=== PATIENT | female | born 1970 | race Caucasian/White ===

== ENCOUNTER 2024-03-28 09:35 | Outpatient (CLI) | payer MEDICARE, MEDICAID, SELFPAY ==
--- NOTE | ~2024-03-28 | XR_ITS ---
Lumbosacral Spine: AP and lateral views Clinical History: Spinal stenosis Findings: The normal lordotic curve is maintained. There is anterior fusion from L4 to L5, and L5-S1, with interbody disc fusion devices at the L4-L5 and L5-S1 disc levels. There is right-sided posterio r fusion from L4 to L5, right-sided posterior jenna and transpedicular screws present. Remaining disc s paces are relatively well-preserved. There is extensive moderate to severe facet arthropathy througho ut the lumbar spine. The sacroiliac joints are normally outlined. Neurostimulator device present. Impression: Postoperative changes at L4-L5 and L5-S1, as detailed above. Moderate degenerative spondylosis, as above. Neurostimulator device. Reviewed, dictated and finalized at location . Impression: Postoperative changes at L4-L5 and L5-S1, as detailed above. Moderate degenerative spondylosis, as above. Neurostimulator device.
== END 2024-03-28 09:36 | disposition home or self-care (01) ==
PROVIDERS: PCP Nurse Practitioner Family; Visit Provider Neurological Surgery
DX: M48.062 Spinal stenosis, lumbar region with neurogenic claudication (principal); M47.896 Other spondylosis, lumbar region
CPT/HCPCS: 72110

== ENCOUNTER 2024-05-27 12:58 | Outpatient (CLI) | payer MEDICARE, MEDICAID, SELFPAY ==
--- NOTE | 2024-05-27 13:10 | ECG_ITS ---
Test Date: 2024-05-27 13:46:16 Measurements Intervals [place] Rate: 99 P: 54 MS: 185 QRS: 31 QRSD: 104 T: 23 QT: 367 QTc: 472 Interpretive Statements SINUS RHYTHM CONSIDER INFERIOR INFARCT, AGE INDETERMINATE BORDERLINE ST-T WAVE ABNORMALITY- ANTERIOR LEADS ABNORMAL ECG No previous ECG available for comparison Electronically Signed On 05-27-2024 14:00:21 CDT by Jeronimo Montaño D.O.
[2024-05-27 14:17] LABS: Add Urine Microscopic? NO; Appearance Urine Clear (Clear); Bilirubin Urine Negative (Negative); Blood Urine Negative (Negative); Color Urine Yellow (Yellow); Glucose Urine UA Negative (Negative); Ketones Urine Negative (Negative); Leukocyte Esterase Ur Negative LEU/UL (Negative); Nitrate Urine Negative (Negative); Protein Urine Negative (Negative); Specific Grav Ur 1.008 (1.001-1.035); Urobilinogen Urine 0.2 mg/dL (<2.0); pH Urine 5.5 (5.0-9.0)
[2024-05-27 14:19] LABS: Hematocrit 38.5 % (37.0-47.0); Hemoglobin 12.8 g/dL (12.0-15.0); Mean Corpuscular HGB Conc 33.2 g/dl (32-36); Mean Corpuscular Hemoglobin 29.5 pg (26-34); Mean Corpuscular Volume 88.7 fl (80-100); Mean Platelet Volume 10.5 fl (7.4-10.4); Platelet Count Result 198 k/mm3 (150-375); Red Blood Count 4.34 M/mm3 (4.2-5.4)
[2024-05-27 14:23] LABS: Prothrombin Time 13.3 Seconds (11.1-14.7)
[2024-05-27 14:24] LABS: Partial Thromboplastin Time 27.8 Seconds (22.3-36.8)
[2024-05-27 14:30] LABS: Anion Gap 12 mmol/L (4-12); Blood Urea Nitrogen 24 mg/dL (7-17); Calcium 9.4 mg/dL (8.4-10.2); Carbon Dioxide 28 mmol/L (22-30); Chloride 101 mmol/L (98-107); Estimated Glomerular Filt Rate 52; Glucose 121 mg/dL (65-110); Potassium 3.5 mmol/L (3.4-5.0); Sodium 141 mmol/L (137-145)
== END 2024-05-27 12:59 | disposition home or self-care (01) ==
PROVIDERS: PCP Nurse Practitioner Family; Visit Provider Neurological Surgery
DX: Z01.818 Encounter for other preprocedural examination (principal); M48.062 Spinal stenosis, lumbar region with neurogenic claudication; R94.31 Abnormal electrocardiogram [ECG] [EKG]
CPT/HCPCS: 36415; 80048; 81003; 85027; 85610; 85730; 86850; 86900; 86901; 93005

== ENCOUNTER 2024-07-30 12:52 | Emergency (ER) | payer MEDICARE, SELFPAY ==
--- NOTE | ~2024-07-30 | XR_ITS ---
EXAMINATION: XR chest 2V DATE: 07/30/2024 13:32 INDICATION: Chest pain. Shortness of breath. TECHNIQUE: Frontal and lateral views of the chest were obtained. COMPARISON: None. FINDINGS: There is no pneumonia, pleural effusion, or pneumothorax. The heart size is normal. Epidura l electrodes are noted. There are surgical clips in the abdomen. IMPRESSION: 1. No acute cardiopulmonary disease. Reviewed, dictated and finalized at location A. [employer]
--- NOTE | 2024-07-30 12:53 | ECG_ITS ---
Test Date: 2024-07-30 12:57:37 Measurements Intervals [place] Rate: 73 P: 56 IN: 194 QRS: 37 QRSD: 103 T: 38 QT: 396 QTc: 437 Interpretive Statements SINUS RHYTHM MODERATE T-WAVE ABNORMALITY, CONSIDER ANTERIOR ISCHEMIA ABNORMAL ECG Compared to ECG 05/27/2024 13:46:16 Possible ischemia now present Electronically Signed On 07-30-2024 13:05:17 [employer] MACHINIST by Jeronimo Montaño D.O.
[2024-07-30 12:56] VITALS: BP 113/66; PULSE 73; RESP 17; TEMP 36.6; O2SAT 99
--- NOTE | 2024-07-30 12:57 | ED_ITS ---
HPI - Chest Pain General Chief Complaint: Chest Pain <Lindsey Oakley PA-C - Last Filed: 08/03/24 19:28> Stated Complaint: CP <Lindsey Oakley PA-C - Last Filed: 08/03/24 19:28> Time Seen by Provider: 07/30/24 19:13 <Lindsey Oakley PA-C - Last Filed: 08/03/24 19:28> Focused HPI: 53-year-old female presents to emergency department for left-sided chest pain that started at 12:20 p.m. 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 Patient states the pain is located her left side, is nonradiating. She denies known cardiac history but does state that she was told that she has evidence of a ?prior heart attack on an EKG?. She is scheduled for stress test on Saturday. She has no prior history of stress test. She has never seen a care center manager. She denies personal history of hypertension, hyperlipidemia, diabetes for CP. She does note that her parents and siblings have a history of heart disease. He does not smoke tobacco but does use of a vape. GENERAL: Well-appearing, well-nourished, and in no acute distress. HEAD: Normocephalic, atraumatic. CHEST: Clear to auscultation. ?No respiratory distress. HEART: Regular rate and rhythm.? NEURO: ?Alert and oriented x3. Patient screened in triage and initial orders placed.? ?Additional care and disposition to be based upon?diagnostic testing and treatment. <Lindsey Oakley PA-C - Last Filed: 08/03/24 19:28> History of Present Illness HPI narrative: Patient 53-year-old female presents emergency department with chief complaint of chest discomfort. Patient reports that she has had an abnormal EKG and is scheduled for a stress test on Saturday at [facility]. The patient states that she is not having shortness of breath denies radiation to her arm or neck the patient states that she still having a little bit discomfort but reports that it is better. <Marito Terry MD - Last Filed: 07/30/24 20:01> Related Data Home Medications: Home Medications Medication Instructions Recorded Confirmed aripiprazole 20 mg tablet 20 mg PO DAILY 01/07/24 05/25/24 biotin 5,000 mcg chewable tablet 5,000 mcg PO DAILY 01/07/24 05/25/24 cetirizine 10 mg tablet (Zyrtec) 10 mg PO DAILY 01/07/24 05/25/24 cholecalciferol (vitamin D3) 50 50 mcg PO DAILY 01/07/24 05/25/24 mcg (2,000 unit) capsule citalopram 40 mg tablet 40 mg PO DAILY 01/07/24 05/25/24 cyclobenzaprine 10 mg tablet 10 mg PO TID PRN Spasms 01/07/24 05/25/24 dicyclomine 20 mg tablet 20 mg PO BID 01/07/24 05/25/24 hydrocodone 5 mg-acetaminophen 325 1 tablet PO Q8H PRN Pain 01/07/24 05/25/24 mg tablet magnesium oxide 400 mg (241.3 mg 400 mg PO DAILY 01/07/24 05/25/24 magnesium) tablet multivitamin 1 tablet PO DAILY 01/07/24 05/25/24 potassium chloride 20 mEq 20 meq PO TID 01/07/24 05/25/24 tablet,extended release topiramate 100 mg tablet 150 mg PO DAILY 01/07/24 05/25/24 vitamin E (dl, acetate) 180 mg 180 mg PO DAILY 01/07/24 05/25/24 (400 unit) capsule eszopiclone 1 mg tablet 1 mg PO HS 05/25/24 05/25/24 furosemide 20 mg tablet 20 mg PO BID 05/25/24 05/25/24 hydroxyzine pamoate 25 mg capsule 25 mg PO TID 05/25/24 05/25/24 pantoprazole 40 mg tablet,delayed 40 mg PO BID 05/25/24 05/25/24 release vitamin K2 40 mcg tablet 40 mcg PO DAILY 05/25/24 05/25/24 <Lindsey Oakley PA-C - Last Filed: 08/03/24 19:28> Allergies/Adverse Reactions: Allergies Allergy/AdvReac Type Severity Reaction Status Date / Time ketorolac Allergy Mild Hives Verified 05/25/24 15:26 sulfanilamide Allergy Mild Hives Verified 05/25/24 15:26 <Lindsey Oakley PA-C - Last Filed: 08/03/24 19:28> Review of Systems Review of Systems: A 10 system review of systems was completed on the patient and is negative except for what is stated in the HPI. Nursing and ancillary documentation was reviewed. <Marito Terry MD - Last Filed: 07/30/24 20:01> PMF Family History Family History: Family History Father Family history of obesity Family history of cataracts Hypertension Family history of alcoholism Family history of chronic obstructive pulmonary disease Family history of pancreatic cancer Family history of heart disease in male family member before age 55 Mother Family history of obesity Family history of mental disorder Depression Hypertension Family history of malignant neoplasm of breast in first degree relative Family history of malignant neoplasm of urinary bladder Sibling Family history of mental disorder Depression <Lindsey Oakley PA-C - Last Filed: 08/03/24 19:28> Social History Social History: Social History Smoking status: Former smoker Tobacco type: e-cigarettes/vaping Alcohol intake: unknown Substance use type: marijuana Other substance usage details: 3 or 4 times a week for pain Do You Feel Safe in your Home?: Yes Lack of Transportation: No Lack of Food: Never True Current Housing: I Have Housing Concerned About Future Housing: No Difficulty Paying Gas/Electric Bills: YES Difficulty Paying for Meds: No Currently Unemployed: No Education: Associate Degree Difficulty w/ Childcare or Family Care: No Living arrangements: with family Spiritual care concerns: No <Lindsey Oakley PA-C - Last Filed: 08/03/24 19:28> Exam Narrative: GENERAL: Well-appearing, well-nourished, and in no acute distress. HEAD: Normocephalic, atraumatic. EYES: PERRLA and EOMI. ENT: Nares clear, no rhinorrhea or epistaxis. Mucous membranes moist. NECK: Supple. CHEST: Clear to auscultation. No respiratory distress. HEART: Regular rate and rhythm. No murmur heard. Normal peripheral pulses. ABDOMEN: Soft, nontender, nondistended, normal active bowel sounds. EXTREMITIES: Normal range of motion. No edema. SKIN: Warm, dry, no rash. NEURO: No focal deficits. Alert and oriented x3. PSYCH: Normal mood and affect. <Marito Terry MD - Last Filed: 07/30/24 20:01> Course Vital Signs Vital signs: Vital Signs Temperature 97.8 F 07/30/24 12:56 Pulse Rate 73 07/30/24 12:56 Respiratory Rate 17 07/30/24 12:56 Blood Pressure 113/66 07/30/24 12:56 Pulse Oximetry 99 07/30/24 12:56 Oxygen Delivery Room Air 07/30/24 12:56 Temperature 97.8 F 07/30/24 12:56 Pulse Rate 76 07/30/24 19:59 Respiratory Rate 15 07/30/24 19:59 Blood Pressure 118/76 07/30/24 19:59 Pulse Oximetry 99 07/30/24 19:59 Oxygen Delivery Room Air 07/30/24 12:56 <Lindsey Oakley PA-C - Last Filed: 08/03/24 19:28> Vital Signs Temperature 97.8 F 07/30/24 12:56 Pulse Rate 73 07/30/24 12:56 Respiratory Rate 17 07/30/24 12:56 Blood Pressure 113/66 07/30/24 12:56 Pulse Oximetry 99 07/30/24 12:56 Oxygen Delivery Room Air 07/30/24 12:56 Temperature 97.8 F 07/30/24 12:56 Pulse Rate 76 07/30/24 19:59 Respiratory Rate 15 07/30/24 19:59 Blood Pressure 118/76 07/30/24 19:59 Pulse Oximetry 99 07/30/24 19:59 Oxygen Delivery Room Air 07/30/24 12:56 <Marito Terry MD - Last Filed: 07/30/24 20:01> MDM - Chest Pain MDM Narrative Medical decision making narrative: Differential diagnosis includes ACS, atypical chest pain, EKG showed no ST elevation or ST depression initial troponin was negative 3 hour repeat troponin was negative as well the patient will be discharged home to follow-up with her primary care provider and to have her stress test on Saturday <Marito Terry MD - Last Filed: 07/30/24 20:01> Lab Data Result diagrams: 07/30/24 15:49 07/30/24 15:49 <Lindsey Oakley PA-C - Last Filed: 08/03/24 19:28> Labs: Lab Results 07/30/24 07/30/24 Range/Units 15:49 19:06 WBC 7.2 (4.5-10.0) K/mm3 RBC 4.21 (4.2-5.4) M/mm3 Hgb 12.8 (12.0-15.0) g/dL Hct 37.1 (37.0-47.0) % MCV 88.1 (80-100) fl MCH 30.4 (26-34) pg MCHC 34.5 (32-36) g/dl RDW 12.9 (11.5-14.5) % Plt Count 160 (150-375) k/mm3 MPV 10.8 H (7.4-10.4) fl Immature Gran % (Auto) 0.1 (0-0.5) % Neut % (Auto) 60.6 (45.5-73.1) % Lymph % (Auto) 27.7 (18.3-44.2) % [place] % (Auto) 9.3 H (2.6-8.5) % Eos % (Auto) 1.9 (0-4.4) % Baso % (Auto) 0.4 (0.2-1.2) % Lymph # (Auto) 2.00 (0.9-3.2) K/mm3 [place] # (Auto) 0.7 H (0.1-0.6) K/mm3 Eos # (Auto) 0.1 (0-0.3) K/mm3 Baso # (Auto) 0.0 (0.0-0.1) K/mm3 Abs Immat Gran (auto) 0.01 (0.00-0.031) K/mm3 Absolute Neuts (auto) 4.4 (1.3-6.7) K/mm3 Absolute Nucleated RBC 0.000 (0.0-0.012) K/mm3 Nucleated RBC % 0.0 (0.0-0.2) % PT 12.8 (11.1-14.7) Seconds INR 0.9 APTT 28.9 (22.3-36.8) Seconds Sodium 140 (137-145) mmol/L Potassium 3.9 (3.4-5.0) mmol/L Chloride 108 H (98-107) mmol/L Carbon Dioxide 24 (22-30) mmol/L Anion Gap 8 (4-12) mmol/L BUN 27 H (7-17) mg/dL Creatinine 1.20 H (0.7-1.0) mg/dL Estim Creat Clear Calc 52 ml/min Estimated GFR 47 L (59 - ) Glucose 82 (65-110) mg/dL Calcium 9.5 (8.4-10.2) mg/dL Total Bilirubin 0.2 (0.2-1.3) mg/dL AST 29 (14-36) U/L ALT 25 (6-35) U/L Alkaline Phosphatase 128 H (38-126) U/L Troponin I < 0.012 < 0.012 (0.000-0.034) ng/mL NT-Pro-B Natriuret Pep 56 (19.9-100) pg/mL Total Protein 8.0 (6.3-8.2) g/dL Albumin 4.6 (3.5-5.1) g/dL Lipase 103 (23-300) U/L <Lindsey Oakley PA-C - Last Filed: 08/03/24 19:28> Lab Results 07/30/24 07/30/24 Range/Units 15:49 19:06 WBC 7.2 (4.5-10.0) K/mm3 RBC 4.21 (4.2-5.4) M/mm3 Hgb 12.8 (12.0-15.0) g/dL Hct 37.1 (37.0-47.0) % MCV 88.1 (80-100) fl MCH 30.4 (26-34) pg MCHC 34.5 (32-36) g/dl RDW 12.9 (11.5-14.5) % Plt Count 160 (150-375) k/mm3 MPV 10.8 H (7.4-10.4) fl Immature Gran % (Auto) 0.1 (0-0.5) % Neut % (Auto) 60.6 (45.5-73.1) % Lymph % (Auto) 27.7 (18.3-44.2) % [place] % (Auto) 9.3 H (2.6-8.5) % Eos % (Auto) 1.9 (0-4.4) % Baso % (Auto) 0.4 (0.2-1.2) % Lymph # (Auto) 2.00 (0.9-3.2) K/mm3 [place] # (Auto) 0.7 H (0.1-0.6) K/mm3 Eos # (Auto) 0.1 (0-0.3) K/mm3 Baso # (Auto) 0.0 (0.0-0.1) K/mm3 Abs Immat Gran (auto) 0.01 (0.00-0.031) K/mm3 Absolute Neuts (auto) 4.4 (1.3-6.7) K/mm3 Absolute Nucleated RBC 0.000 (0.0-0.012) K/mm3 Nucleated RBC % 0.0 (0.0-0.2) % PT 12.8 (11.1-14.7) Seconds INR 0.9 APTT 28.9 (22.3-36.8) Seconds Sodium 140 (137-145) mmol/L Potassium 3.9 (3.4-5.0) mmol/L Chloride 108 H (98-107) mmol/L Carbon Dioxide 24 (22-30) mmol/L Anion Gap 8 (4-12) mmol/L BUN 27 H (7-17) mg/dL Creatinine 1.20 H (0.7-1.0) mg/dL Estim Creat Clear Calc 52 ml/min Estimated GFR 47 L (59 - ) Glucose 82 (65-110) mg/dL Calcium 9.5 (8.4-10.2) mg/dL Total Bilirubin 0.2 (0.2-1.3) mg/dL AST 29 (14-36) U/L ALT 25 (6-35) U/L Alkaline Phosphatase 128 H (38-126) U/L Troponin I < 0.012 < 0.012 (0.000-0.034) ng/mL NT-Pro-B Natriuret Pep 56 (19.9-100) pg/mL Total Protein 8.0 (6.3-8.2) g/dL Albumin 4.6 (3.5-5.1) g/dL Lipase 103 (23-300) U/L <Marito P. Lipsmeyer, MD - Last Filed: 07/30/24 20:01> Discharge Plan Discharge Clinical Impression: Atypical chest pain <Lindsey Oakley PA-C - Last Filed: 08/03/24 19:28> Patient Disposition: Home, Self-Care <Lindsey Oakley PA-C - Last Filed: 08/03/24 19:28> Condition: Stable <ANTONIA Stewart Last Filed: 08/03/24 19:28> Instructions: Antibiotic Form, Chest Pain (ED) <Lindsey Oakley PA-C - Last Filed: 08/03/24 19:28> Additional Instructions: if her chest pain worsens please return to the emergency department. Please go to your scheduled stress test on Saturday. <Lindsey Oakley PA-C - Last Filed: 08/03/24 19:28> Prescriptions: No Action aripiprazole 20 mg tablet 20 mg PO DAILY biotin 5,000 mcg tablet,chewable 5,000 mcg PO DAILY citalopram 40 mg tablet 40 mg PO DAILY cyclobenzaprine 10 mg tablet 10 mg PO TID PRN (Reason: Spasms) cholecalciferol (vitamin D3) 50 mcg (2,000 unit) capsule 50 mcg PO DAILY multivitamin Tablet 1 tablet PO DAILY dicyclomine 20 mg tablet 20 mg PO BID hydrocodone-acetaminophen 5-325 mg tablet 1 tablet PO Q8H PRN (Reason: Pain) magnesium oxide 400 mg (241.3 mg magnesium) tablet 400 mg PO DAILY potassium chloride 20 mEq tablet extended release 20 meq PO TID topiramate 100 mg tablet 150 mg PO DAILY Rx Instructions: Says takes at HS. vitamin E (dl, acetate) 180 mg (400 unit) capsule 180 mg PO DAILY cetirizine [Zyrtec] 10 mg tablet 10 mg PO DAILY furosemide 20 mg tablet 20 mg PO BID Rx Instructions: takes 2 tabs am and 1 tab afternoon. pantoprazole 40 mg tablet,delayed release (DR/EC) 40 mg PO BID eszopiclone 1 mg tablet 1 mg PO HS hydroxyzine pamoate 25 mg capsule 25 mg PO TID vitamin K2 40 mcg Tablet 40 mcg PO DAILY <ANTONIA Stewart Last Filed: 08/03/24 19:28> Follow-up/Referrals: Serafin,NOAH Unger [Primary Care Provider] - <Lindsey Oakley PA-C - Last Filed: 08/03/24 19:28> Time of Disposition: 20:01 <Lindsey Oakley PA-C - Last Filed: 08/03/24 19:28> 20:01 <Marito Terry MD - Last Filed: 07/30/24 20:01>
[2024-07-30 15:55] LABS: Basophils Percent Auto 0.4 % (0.2-1.2); Eosinophils Absolute Auto 0.1 K/mm3 (0-0.3); Eosinophils Percent Auto 1.9 % (0-4.4); Hematocrit 37.1 % (37.0-47.0); Hemoglobin 12.8 g/dL (12.0-15.0); Immature Granulocyte Absolute 0.01 K/mm3 (0.00-0.031); Immature Granulocyte Percent A 0.1 % (0-0.5); Lymphocytes Percent Auto 27.7 % (18.3-44.2); Mean Corpuscular HGB Conc 34.5 g/dl (32-36); Mean Corpuscular Hemoglobin 30.4 pg (26-34); Mean Corpuscular Volume 88.1 fl (80-100); Mean Platelet Volume 10.8 fl (7.4-10.4); Monocytes Absolute Auto 0.7 K/mm3 (0.1-0.6); Monocytes Percent Auto 9.3 % (2.6-8.5); Neutrophils Absolute Auto 4.4 K/mm3 (1.3-6.7); Neutrophils Percent Auto 60.6 % (45.5-73.1); Platelet Count Result 160 k/mm3 (150-375); Red Blood Count 4.21 M/mm3 (4.2-5.4); Red Cell Distribution Width 12.9 % (11.5-14.5); White Blood Count 7.2 K/mm3 (4.5-10.0)
[2024-07-30 16:07] LABS: INR 0.9; Prothrombin Time 12.8 Seconds (11.1-14.7)
[2024-07-30 16:08] LABS: Alanine Aminotransferase 25 U/L (6-35); Albumin Level 4.6 g/dL (3.5-5.1); Alkaline Phosphatase 128 U/L (38-126); Anion Gap 8 mmol/L (4-12); Aspartate Amino Transferase 29 U/L (14-36); Bilirubin,Total 0.2 mg/dL (0.2-1.3); Blood Urea Nitrogen 27 mg/dL (7-17); Calcium 9.5 mg/dL (8.4-10.2); Carbon Dioxide 24 mmol/L (22-30); Chloride 108 mmol/L (98-107); Estimated CRCL calculation 52 ml/min; Estimated Glomerular Filt Rate 47; Glucose 82 mg/dL (65-110); Lipase 103 U/L (23-300); Partial Thromboplastin Time 28.9 Seconds (22.3-36.8); Potassium 3.9 mmol/L (3.4-5.0); Sodium 140 mmol/L (137-145)
[2024-07-30 16:19] LABS: NT Pro B Type Natriuretic Pept 56 pg/mL (19.9-100); Troponin I < 0.012 ng/mL (0.000-0.034)
[2024-07-30 17:13] VITALS: BP 119/71; PULSE 72; RESP 19; O2SAT 99
--- NOTE | 2024-07-30 18:47 | ECG_ITS ---
Test Date: 2024-07-30 19:04:23 Measurements Intervals [place] Rate: 73 P: 42 ID: [id number] QRS: 55 QRSD: 97 T: 44 QT: 394 QTc: 436 Interpretive Statements SINUS RHYTHM ST-T WAVE ABNORMALITY IN ANTERIOR LEADS- CONSIDER ISCHEMIA ABNORMAL ECG Compared to ECG 07/30/2024 12:57:37 No significant changes Electronically Signed On 07-30-2024 20:16:17 CERTIFIED TOWER CLIMBER by Jeronimo Montaño D.O.
[2024-07-30 19:35] LABS: Troponin I < 0.012 ng/mL (0.000-0.034)
[2024-07-30 19:59] VITALS: BP 118/76; PULSE 76; RESP 15; O2SAT 99
== END 2024-07-30 20:07 | disposition home or self-care (01) ==
PROVIDERS: Student in an Organized Health Care Education/Training Program; Emergency Provider Emergency Medicine; PCP Nurse Practitioner Family
DX: R07.89 Other chest pain (principal); Z87.891 Personal history of nicotine dependence
CPT/HCPCS: 36415; 71046; 80053; 83690; 83880; 84484; 85025; 85610; 85730; 93005; 99284

== ENCOUNTER 2024-11-19 14:41 | Outpatient (CLI) | payer MEDICARE, SELFPAY ==
[2024-11-19 15:33] LABS: Hematocrit 36.5 % (37.0-47.0); Hemoglobin 12.5 g/dL (12.0-15.0); Mean Corpuscular HGB Conc 34.2 g/dl (32-36); Mean Corpuscular Hemoglobin 29.4 pg (26-34); Mean Corpuscular Volume 85.9 fl (80-100); Mean Platelet Volume 10.8 fl (7.4-10.4); Platelet Count Result 157 k/mm3 (150-375); Red Blood Count 4.25 M/mm3 (4.2-5.4); Red Cell Distribution Width 12.4 % (11.5-14.5); White Blood Count 8.5 K/mm3 (4.5-10.0)
[2024-11-19 15:40] LABS: Add Urine Microscopic? YES; Appearance Urine Clear (Clear); Bacteria Urine None Seen /hpf; Bilirubin Urine Negative (Negative); Blood Urine Negative (Negative); Color Urine Yellow (Yellow); Glucose Urine UA Negative (Negative); Ketones Urine Negative (Negative); Leukocyte Esterase Ur Trace LEU/UL (Negative); Nitrate Urine Negative (Negative); Non Pathogenic Casts 0-2; Protein Urine Negative (Negative); RBC Urine 0-2 /hpf (0-2); Specific Grav Ur 1.007 (1.001-1.035); Squamous Epithelial Cell Urine None Seen /hpf (Few); Urobilinogen Urine 0.2 mg/dL (<2.0); WBC Urine 0-5 /hpf (0-3)
[2024-11-19 15:41] LABS: Anion Gap 9 mmol/L (4-12); Blood Urea Nitrogen 23 mg/dL (7-17); Calcium 9.9 mg/dL (8.4-10.2); Carbon Dioxide 22 mmol/L (22-30); Chloride 109 mmol/L (98-107); Estimated Glomerular Filt Rate 57; Glucose 95 mg/dL (65-110); Potassium 3.4 mmol/L (3.4-5.0); Sodium 140 mmol/L (137-145)
[2024-11-19 15:45] LABS: Prothrombin Time 13.3 Seconds (11.1-14.7)
[2024-11-19 15:46] LABS: Partial Thromboplastin Time 27.5 Seconds (22.3-36.8)
--- OUTSIDE RECORDS SUMMARY | 2024-11-19 16:01 | XMS_ITS | Encounter Summary ---
Author Organization [employer] Address [address] [place] [address] Care Team Providers Care Digital Specialist Name Role Phone Charlie Mera MD Primary Care Provider Mary tapia Encounter Details Date Type Department Care Team (Latest Contact Info) Description 04/04/2005 Inpatient Historical HIS PATIENT IN A BED Jackson Theodore MD [address] [place] [address] [address] Pratik Asencio DO [address] [place] [address] [place], [place] [id number] RENAL DIS NOS-ANTEPARTUM (Primary Dx) Social History Tobacco Use Types Packs/Day Years Used Date Smoking Tobacco: Never Assessed Comments Unknown Sex and Gender Information Value Date Recorded Sex Assigned at Not on file 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 Gender Identity Not on file Sexual Orientation Not on file documented as of this encounter Plan of Treatment Not on file documented as of this encounter Procedures Procedure Name Priority Date/Time Associated Diagnosis Comments LIPASE Routine 04/06/2005 9:15 AM CDT AMYLASE Routine 04/06/2005 9:15 AM CDT COMPREHENSIVE METABOLIC PANEL Routine 04/06/2005 9:15 AM CDT BASIC METABOLIC PANEL Routine 04/04/2005 11:18 AM CDT CBC WITH DIFFERENTIAL Routine 04/04/2005 11:12 AM CDT CBC WITH DIFFERENTIAL Routine 04/04/2005 11:12 AM CDT C-REACTIVE PROTEIN Routine 04/04/2005 11 :12 AM CDT URINALYSIS WITH REFLEX CULTURE Routine 04/04/2005 9:30 AM CDT URINALYSIS W/REFLEX MICROSCOPIC Routine 04/04/2005 9:30 AM CDT documented in this encounter Results * AMYLASE (04/06/2005 9:15 AM CDT) AMYLASE 37 28 - 100 U/L INTERFACE SYSTEM 04/06/2005 9:15 AM CDT Jackson Theodore MD CHEMISTRY ORDERABLES Fin al Result Performing Organization Address [facility] Phone Number INTERFACE SYSTEM Refer to clinic/hospital department * LIPASE (04/06/2005 9:15 AM CDT) LIPASE 15 13 - 60 U/L INTERFAC E SYSTEM 04/06/2005 9:15 AM CDT Jackson Theodore MD CHEMISTRY ORDERABLES Fin al Result Performing Organization Address [facility] Phone Number INTERFACE SYSTEM Refer to clinic/hospital department * (ABNORMAL) COMPREHENSIVE METABOLIC PANEL (04/06/2005 9:15 AM CDT) GLUCOSE 162(H) 65 - 109 mg/dL INTERFACE SYSTEM CREATININE 0.6 0.4 - 1.2 mg/dL INTERFACE SYSTEM CALCIUM 9.3 8.6 - 10.2 mg/dL INTERFACE SYSTEM AST 15 12 - 32 U/L INTERFACE SYSTEM ALKALINE PHOSPHATASE 63 35 - 104 U/L INTERFACE SYSTEM BUN 6 6 - 20 mg/dL INTERFACE SYSTEM BILIRUBIN TOTAL 0.1(L) 0.2 - 1.0 mg/dL INTERFACE SYSTEM ALBUMIN 3.2(L) 3.4 - 4.8 g/dL INTERFACE SYSTEM TOTAL PROTEIN 6.5 6.3 - 8.6 g/dL INTERFACE SYSTEM ALT 9 0 - 31 U/L INTERFACE SYSTEM SODIUM 135 135 - 145 mmol/L INTERFACE SYSTEM POTASSIUM 3.5 3.5 - 4.9 mmol/L INTERFACE SYSTEM CHLORIDE 98 96 - 108 mmol/L INTERFACE SYSTEM CO2 29 22 - 30 mmol/L INTERFACE SYSTEM 04/06/2005 9:15 AM CDT us Jackson Theodore MD CHEMISTRY ORDERABLES Fin al Result Performing Organization Address [facility] Phone Number INTERFACE SYSTEM Refer to clinic/hospital department * (ABNORMAL) BASIC METABOLIC PANEL (04/04/2005 11:18 AM CDT) GLUCOSE 74 65 - 109 mg/dL INTERFACE SYSTEM CREATININE 0.6 0.4 - 1.2 mg/dL INTERFACE SYSTEM CALCIUM 8.9 8.6 - 10.2 mg/dL INTERFACE SYSTEM BUN 8 6 - 20 mg/dL INTERFACE SYSTEM SODIUM 133(L) 135 - 145 mmol/L INTERFACE SYSTEM POTASSIUM 4.1 3.5 - 4.9 mmol/L INTERFACE SYSTEM CHLORIDE 98 96 - 108 mmol/L INTERFACE SYSTEM CO2 23 22 - 30 mmol/L INTERFACE SYSTEM 04/04/2005 11:1 8 AM CDT us Pratik Asencio DO CHEMISTRY ORDERABLES Final Res ult Performing Organization Address [facility] Phone Number INTERFACE SYSTEM Refer to clinic/hospital department * (ABNORMAL) CBC WITH DIFFERENTIAL (04/04/2005 11:12 AM CDT) NEUTROPHILS 80(H) 45 - 70 % INTERFAC E SYSTEM LYMPHOCYTES 14(L) 16 - 45 % INTERFAC E SYSTEM MONOCYTES 5 3 - 13 % INTERFACE SYSTEM EOSINOPHILS 1 0 - 7 % INTERFAC E SYSTEM BASOPHILS 0 0 - 2 % INTERFACE SYSTEM NEUTROPHIL ABSOLUTE 7.76(H) 1.90 - 7.00 K/uL INTERFACE SYSTEM LYMPHOCYTE ABSOLUTE 1.38 0.70 - 4.50 K/uL INTERFACE SYSTEM MONOCYTE ABSOLUTE 0.51 0.10 - 1.30 K/uL INTERFACE SYSTEM EOSINOPHIL ABSOLUTE 0.09 0.00 - 0.70 K/uL INTERFACE SYSTEM BASOPHILS ABSOLUTE 0.01 0.00 - 0.20 K/uL INTERFACE SYSTEM 04/04/2005 11:1 2 AM CDT Pratik Asencio DO HEMATOLOGY ORDERABLES Final Re sult Performing Organization Address [facility] Phone Number INTERFACE SYSTEM Refer to clinic/hospital department * (ABNORMAL) CBC WITH DIFFERENTIAL (04/04/2005 11:12 AM CDT) WBC 9.8 4.0 - 9.8 K/uL INTERFACE SYSTEM RBC 4.06 3.90 - 4.90 M/uL INTERFACE SYSTEM HEMOGLOBIN 11.7(L) 11.8 - 14.8 g/dL INTERFACE SYSTEM HEMATOCRIT 34.9(L) 35.5 - 44.0 % INTERFACE SYSTEM MCV 86.0 82.0 - 99.0 fL INTERFACE SYSTEM MCH 28.8 27.2 - 32.6 pg INTERFACE SYSTEM MCHC 33.5 31.5 - 35.5 % INTERFACE SYSTEM RDW 12.5 11.5 - 14.5 % INTERFACE SYSTEM RDW-STDEV 39.5 37.1 - 48.7 fL INTERFACE SYSTEM PLATELETS 162 140 - 350 K/uL INTERFACE SYSTEM MPV 10.8 9.3 - 12.4 fL INTERFACE SYSTEM 04/04/2005 11:1 2 AM CDT Pratik Asencio DO HEMATOLOGY ORDERABLES Final Re sult Performing Organization Address [facility] Phone Number INTERFACE SYSTEM Refer to clinic/hospital department * (ABNORMAL) C-REACTIVE PROTEIN (04/04/2005 11:12 AM CDT) CRP 1.1(H) 0.0 - 0.8 mg/dL INTERFACE SYSTEM 04/04/2005 11:1 2 AM CDT Pratik Asencio DO CHEMISTRY ORDERABLES Final Res ult Performing Organization Address [facility] Phone Number INTERFACE SYSTEM Refer to clinic/hospital department * (ABNORMAL) URINALYSIS (04/04/2005 9:30 AM CDT) COLOR UA Yellow INTERFACE SYSTEM CLARITY UA Slt. Cloudy(A) Clear INTERFACE SYSTEM SPECIFIC GRAVITY UA 1.015 1.001 - 1.035 INTERFACE SYSTEM PH UA 6.5 5.0 - 8.0 INTERFACE SYSTEM LEUKOCYTE ESTERASE UA Trace(A) Negative INTERFACE SYSTEM NITRITE UA Negative Negative INTERFACE SYSTEM PROTEIN UA Negative Negative INTERFACE SYSTEM GLUCOSE UA Negative Negative INTERFACE SYSTEM KETONES UA Negative Negative INTERFACE SYSTEM UROBILINOGEN UA <1 <1 mg/dL INTE RFACE SYSTEM Comment: Effective 02/28/05, Urobilinogen will be reported in mg/dL resulting in a n increased sensitivity at lower urobilinogen levels. Previously, results were reported in Brynn unit(EU)/dL. 1+ results previously reported as 1 EU/dL (normal) will become 2 mg/dL (abnormal). BILIRUBIN UA Negative Negative INTERFA CE SYSTEM BLOOD UA Negative Negative INTERFACE SYSTEM WBC UA 2 0 - 5 /HPF INTERFACE SYSTEM EPITHELIAL CELLS, URINE 2-5 /HPF INTERFACE SYSTEM 04/04/2005 9:30 AM CDT Pratik Asencio DO URINE ORDERABLES Final Result Performing Organization Address [facility] Phone Number INTERFACE SYSTEM Refer to clinic/hospital department * URINALYSIS WITH REFLEX CULTURE (04/04/2005 9:30 AM CDT) URINE CULTURE ORDER Culture ordered INTERFACE SYSTEM Comment: Criteria for a reflex culture include one or more of the following: Abn ormal nitrite, leukocyte esterase, WBCs or RBCs. Lack of qualifying criteria does not exclude the possiblity of a urinary tract infection. Dilute urine, drug interference, etc. may decrease the sensitivity of the criteria analytes. 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
--- OUTSIDE RECORDS SUMMARY | 2024-11-19 16:01 | XMS_ITS | Encounter Summary ---
Author Organization [facility] Address 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
--- OUTSIDE RECORDS SUMMARY | 2024-11-19 16:01 | XMS_ITS | Encounter Summary ---
Author Organization [employer] Address [address] [place] [address] Care Team Providers Care Covering Machine Operator Name Role Phone Charlie Mera MD Primary Care Provider Mary le Encounter Details Date Type Department Care Team (Late st Contact Info) Description 12/07/2004 Outpatient Historical [facility], [address] Jb Blanco MD [address] [address] [place] [address] ROUT POSTPART FOLLOW-UP (Primary Dx) Social History Tobacco Use Types Packs/Day Years Used Date Smoking Tobacco: Never Assessed Comments Unknown Sex and Gender Information Value Date Recorded Sex Assigned at Not on file 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
--- OUTSIDE RECORDS SUMMARY | 2024-11-19 16:01 | XMS_ITS | Encounter Summary ---
Author Organization [employer] Address 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
--- OUTSIDE RECORDS SUMMARY | 2024-11-19 16:01 | XMS_ITS | Encounter Summary ---
Author Organization [employer] Address 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
--- OUTSIDE RECORDS SUMMARY | 2024-11-19 16:01 | XMS_ITS | Encounter Summary ---
Author Organization [facility] [employer] Address [address] [place] [address] Care Team Providers Care Health Informatics Instructor Name Role Phone Charlie Mera MD Primary Care Provider Mary tapia Encounter Details Date Type Department Care Team (Latest Contact Info) Description 05/02/2005 Outpatient Historical HIS PATIENT IN A BED AsencioMumtazik Quirino, DO [address] [facility] [address] [address] INFECTION-ANTEPARTUM (Primary Dx) Social History Tobacco Use Types Packs/Day Years Used Date Smoking Tobacco: Never Assessed Comments Unknown Sex and Gender Information Value Date Recorded Sex Assigned at Not on file 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 Gender Identity Not on file Sexual Orientation Not on file documented as of this encounter Plan of Treatment Not on file documented as of this encounter Procedures Procedure Name Priority Date/Time Associated Diagnosis Comments URINALYSIS WITH REFLEX CULTURE Routine 05/02/2005 11:49 AM CDT URINALYSIS W/REFLEX MICROSCOPIC Routine 05/02/2005 11:49 AM CDT CBC WITH DIFFERENTIAL Routine 05/02/2005 11:11 AM CDT CBC WITH DIFFERENTIAL Routine 05/02/2005 11:11 AM CDT DRUG SCREEN, URINE Routine 05/02/2005 11 :11 AM CDT documented in this encounter Results * (ABNORMAL) URINALYSIS (05/02/2005 11:49 AM CDT) COLOR UA Colorless INTERFACE SYSTEM CLARITY UA Clear Clear INTERFACE SYSTEM SPECIFIC GRAVITY UA 1.005 1.001 - 1.035 INTERFACE SYSTEM PH UA 8.0 5.0 - 8.0 INTERFACE SYSTEM LEUKOCYTE ESTERASE UA 1+(A) Negative INTERFACE SYSTEM NITRITE UA Negative Negative [...] UA Negative Negative INTERFACE SYSTEM WBC UA 5 0 - 5 /HPF INTERFACE SYSTEM RBC UA 1 0 - 4 /HPF INTERFACE SYSTEM BACTERIA UA 1+(A) None Seen /HPF INTERFACE SYSTEM EPITHELIAL CELLS, URINE 5-10 /HPF INTERFACE SYSTEM 05/02/2005 11:4 9 AM CDT Pratik Asencio DO URINE ORDERABLES Final Result Performing Organization Address [facility] Phone Number INTERFACE SYSTEM Refer to clinic/hospital department * URINALYSIS WITH REFLEX CULTURE (05/02/2005 11:49 AM CDT) URINE CULTURE ORDER Culture ordered INTERFACE SYSTEM Comment: Criteria for a reflex culture include one or more of the following: Abn ormal nitrite, leukocyte esterase, WBCs or RBCs. Lack of qualifying criteria does not exclude the possiblity of a urinary tract infection. Dilute urine, drug interference, etc. may decrease the sensitivity of the criteria analytes. 05/02/2005 11:4 9 AM CDT Pratik Asencio DO URINE ORDERABLES Final Result Performing Organization Address [facility] Phone Number INTERFACE SYSTEM Refer to clinic/hospital department * DRUG SCREEN, URINE (05/02/2005 11:11 AM CDT) COMMENT, TOXICOLOGY See Separate Comment INTERFACE SYSTEM Comment: Urine sample was not handled as a legal specimen and was received without a chain of custody. The result should be used only for medical purposes. False positive and erroneous results can occur due to cross-reacting sub stances and other factors. Depending on the clinical context, confirmation of all presumptive positive results by a more specific alternate method is recommended. A negative result indicates the analyte, if present, is below the screening threshold. Drug Ref. Range Screening Threshold Amphetamines Negative 1000 ng/mL Barbituates Negative 200 ng/mL Benzodiazepines Negative 300 ng/mL Cannabinoids Negative 50 ng/mL Cocaine Metabolites Negative 300 ng/mL Opiates Negative 300 ng/mL Phencycldine Negative 25 ng/mL The cut-off threshold, known cross-reactive compounds, drugs,and specificity information for each of the urine drugs of abuse are available on the [facility] Intranet at: [email or web address] Select: Drugs of Abuse ? [facility] To inquire about any potential cross-reactivity of a specific drug not listed at this site, please contact the Chemistry Lab at . AMPHETAMINE QUAL, URINE Negative INTERFACE SYSTEM BARBITURATE QUAL, URINE Negative INTERFACE SYSTEM BENZODIAZEPINE QUAL, URINE Negative INTERFACE SYSTEM CANNABINOIDS QUAL, URINE Negative INTERFACE SYSTEM COCAINE QUAL URINE Negative I NTERFACE SYSTEM OPIATE QUAL, URINE Negative I NTERFACE SYSTEM PCP QUAL, URINE Negative INTE RFACE SYSTEM 05/02/2005 11:1 1 AM CDT Pratik Asencio DO URINE ORDERABLES Final Result INTERFACE SYSTEM Refer to clinic/hospital department * (ABNORMAL) CBC WITH DIFFERENTIAL (05/02/2005 11:11 AM CDT) NEUTROPHILS 75(H) 45 - 70 % INTERFAC E SYSTEM LYMPHOCYTES 18 16 - 45 % INTERFAC E SYSTEM MONOCYTES 7 3 - 13 % INTERFACE SYSTEM EOSINOPHILS 1 0 - 7 % INTERFAC E SYSTEM BASOPHILS 0 0 - 2 % INTERFACE SYSTEM NEUTROPHIL ABSOLUTE 7.16(H) 1.90 - 7.00 K/uL INTERFACE SYSTEM LYMPHOCYTE ABSOLUTE 1.73 0.70 - 4.50 K/uL INTERFACE SYSTEM MONOCYTE ABSOLUTE 0.63 0.10 - 1.30 K/uL INTERFACE SYSTEM EOSINOPHIL ABSOLUTE 0.08 0.00 - 0.70 K/uL INTERFACE SYSTEM BASOPHILS ABSOLUTE 0.01 0.00 - 0.20 K/uL INTERFACE SYSTEM 05/02/2005 11:1 1 AM CDT Pratik Asencio DO HEMATOLOGY ORDERABLES Final Re sult Performing Organization Address [facility] Co de Phone Number INTERFACE SYSTEM Refer to clinic/hospital department * (ABNORMAL) CBC WITH DIFFERENTIAL (05/02/2005 11:11 AM CDT) WBC 9.6 4.0 - 9.8 K/uL INTERFACE SYSTEM RBC 3.98 3.90 - 4.90 M/uL INTERFACE SYSTEM HEMOGLOBIN 11.7(L) 11.8 - 14.8 g/dL INTERFACE SYSTEM HEMATOCRIT 33.9(L) 35.5 - 44.0 % INTERFACE SYSTEM MCV 85.2 82.0 - 99.0 fL INTERFACE SYSTEM MCH 29.4 27.2 - 32.6 pg INTERFACE SYSTEM MCHC 34.5 31.5 - 35.5 % INTERFACE SYSTEM RDW 13.4 11.5 - 14.5 % INTERFACE SYSTEM RDW-STDEV 41.5 37.1 - 48.7 fL INTERFACE SYSTEM PLATELETS 149 140 - 350 K/uL INTERFACE SYSTEM MPV 11.0 9.3 - 12.4 fL INTERFACE SYSTEM 05/02/2005 11:1 1 AM CDT Pratik Asencio DO HEMATOLOGY ORDERABLES Final Re sult Performing Organization Address [facility] Co de Phone Number INTERFACE SYSTEM Refer to clinic/hospital department documented in this encounter Visit Diagnoses Diagnosis Infections of genitourinary tract antepartum- Primary documented in this encounter Care Teams Health Informatics Instructor Relationship Specialty Start Date End Date Charlie Mera MD NO ADDRESS ON FILE PCP - General 09/19/05 documented as of this encounter
--- OUTSIDE RECORDS SUMMARY | 2024-11-19 16:01 | XMS_ITS | Encounter Summary ---
Author Organization [facility] Address [address] [place] [address] Care Team Providers Care Small Animal Veterinarian Name Role Phone Charlie Mera MD Primary Care Provider Mary le Encounter Details Date Type Department Care Team (Late st Contact Info) Description 12/07/2004 Outpatient Historical [facility] Jb Blanco MD [address] [facility] [address] [address] [place] [address] ROUT POSTPART FOLLOW-UP (Primary Dx) Social History Tobacco Use Types Packs/Day Years Used Date Smoking Tobacco: Never Assessed Comments Unknown Sex and Gender Information Value Date Recorded Sex Assigned at Not on file 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
--- OUTSIDE RECORDS SUMMARY | 2024-11-19 16:01 | XMS_ITS | Encounter Summary ---
Author Organization [employer] Address [address] [place] [address] Care Team Providers Care Adhesive Bandage Making Operator Name Role Phone Charlie Mera MD Primary Care Provider Mary tapia Encounter Details Date Type Department Care Team (Latest Contact Info) Description 03/27/2005 Outpatient Historical [facility] Pratik Asencio, [address] [facility] [address] [address] RENAL DIS NOS-ANTEPARTUM (Primary Dx) Social History Tobacco Use Types Packs/Day Years Used Date Smoking Tobacco: Never Assessed Comments Unknown Sex and Gender Information Value Date Recorded Sex Assigned at Not on file 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
--- OUTSIDE RECORDS SUMMARY | 2024-11-19 16:01 | XMS_ITS | Encounter Summary ---
Author Organization [employer] Address [address] [place] [address] Care Team Providers Care Environmental Property Assessor Name Role Phone Charlie Mera MD Primary Care Provider Mary tapia Encounter Details Date Type Department Care Team (Latest Contact Info) Description 05/11/2005 Outpatient Historical [facility] PATIENT IN A BED Gwendolyn Mcdonnell MD [address] [place] [address] Pratik Asencio DO [address] [facility] [address] [place] [address] THRT BRIA LABOR-ANTEPART (Primary Dx) Social History Tobacco Use Types Packs/Day Years Used Date Smoking Tobacco: Never Assessed Comments Unknown Sex and Gender Information Value Date Recorded Sex Assigned at Not on file Legal Sex Female 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 PREPARER Gender Identity Not on file Sexual Orientation Not on file documented as of this encounter Plan of Treatment Not on file documented as of this encounter Procedures Procedure Name Priority Date/Time Associated Diagnosis Comments CBC WITH DIFFERENTIAL Routine 05/11/2005 5:23 PM CDT CBC WITH DIFFERENTIAL Routine 05/11/2005 5:23 PM CDT URINALYSIS WITH REFLEX CULTURE Routine 05/11/2005 3:20 PM CDT URINALYSIS W/REFLEX MICROSCOPIC Routine 05/11/2005 3:20 PM CDT documented in this encounter Results * (ABNORMAL) CBC WITH DIFFERENTIAL (05/11/2005 5:23 PM CDT) NEUTROPHILS 77(H) 45 - 70 % INTERFAC E SYSTEM LYMPHOCYTES 15(L) 16 - 45 % INTERFAC E SYSTEM MONOCYTES 7 3 - 13 % INTERFACE SYSTEM EOSINOPHILS 1 0 - 7 % INTERFAC E SYSTEM BASOPHILS 0 0 - 2 % INTERFACE SYSTEM NEUTROPHIL ABSOLUTE 7.68(H) 1.90 - 7.00 K/uL INTERFACE SYSTEM LYMPHOCYTE ABSOLUTE 1.50 0.70 - 4.50 K/uL INTERFACE SYSTEM MONOCYTE ABSOLUTE 0.65 0.10 - 1.30 K/uL INTERFACE SYSTEM EOSINOPHIL ABSOLUTE 0.12 0.00 - 0.70 K/uL INTERFACE SYSTEM BASOPHILS ABSOLUTE 0.01 0.00 - 0.20 K/uL INTERFACE SYSTEM 05/11/2005 5:23 PM CDT Pratik Asencio DO HEMATOLOGY ORDERABLES Final Re sult Performing Organization Address [facility] de Phone Number INTERFACE SYSTEM Refer to clinic/hospital department * (ABNORMAL) CBC WITH DIFFERENTIAL (05/11/2005 5:23 PM CDT) [facility] WBC 10.0(H) 4.0 - 9.8 K/uL INTERFACE SYSTEM RBC 3.60(L) 3.90 - 4.90 M/uL INTERFACE SYSTEM HEMOGLOBIN 10.6(L) 11.8 - 14.8 g/dL INTERFACE SYSTEM HEMATOCRIT 30.9(L) 35.5 - 44.0 % INTERFACE SYSTEM MCV 85.8 82.0 - 99.0 fL INTERFACE SYSTEM MCH 29.4 27.2 - 32.6 pg INTERFACE SYSTEM MCHC 34.3 31.5 - 35.5 % INTERFACE SYSTEM RDW 13.6 11.5 - 14.5 % INTERFACE SYSTEM RDW-STDEV 42.8 37.1 - 48.7 fL INTERFACE SYSTEM PLATELETS 148 140 - 350 K/uL INTERFACE SYSTEM MPV 10.8 9.3 - 12.4 fL INTERFACE SYSTEM 05/11/2005 5:23 PM CDT Pratik Asencio DO HEMATOLOGY ORDERABLES Final Re sult Performing Organization Address [facility] Co de Phone Number INTERFACE SYSTEM Refer to clinic/hospital department * (ABNORMAL) URINALYSIS (05/11/2005 3:20 PM CDT) COLOR UA Yellow INTERFACE SYSTEM CLARITY UA Clear Clear INTERFACE SYSTEM SPECIFIC GRAVITY UA 1.015 1.001 - 1.035 INTERFACE SYSTEM PH UA 7.0 5.0 - 8.0 INTERFACE SYSTEM LEUKOCYTE ESTERASE UA 2+(A) Negative INTERFACE SYSTEM NITRITE UA Negative Negative INTERFACE SYSTEM PROTEIN UA Trace(A) Negative INTERFACE SYSTEM GLUCOSE UA Negative Negative [...] Negative Negative INTERFA CE SYSTEM BLOOD UA Trace(A) Negative INTERFACE SYSTEM WBC UA 22(H) 0 - 5 /HPF INTERFACE SYSTEM RBC UA 8(H) 0 - 4 /HPF INTERFACE SYSTEM BACTERIA UA 1+(A) None Seen /HPF INTERFACE SYSTEM EPITHELIAL CELLS, URINE 2-5 /HPF INTERFACE SYSTEM 05/11/2005 3:20 PM CDT Pratik Asencio DO URINE ORDERABLES Final Result Performing Organization Address [facility] Phone Number INTERFACE SYSTEM Refer to clinic/hospital department * URINALYSIS WITH REFLEX CULTURE (05/11/2005 3:20 PM CDT) URINE CULTURE ORDER Culture ordered INTERFACE SYSTEM Comment: Criteria for a reflex culture include one or more of the following: Abn ormal nitrite, leukocyte esterase, WBCs or RBCs. Lack of qualifying criteria does not exclude the possiblity of a urinary tract infection. Dilute urine, drug interference, etc. may decrease the sensitivity of the criteria analytes. 05/11/2005 3:20 PM CDT Pratik Asencio DO URINE ORDERABLES Final Result Performing Organization Address [facility] Phone Number INTERFACE SYSTEM Refer to clinic/hospital department documented in this encounter Visit Diagnoses Diagnosis Threatened premature labor, antepartum(644.03)- Primary Threatened premature labor, antepartum documented in this encounter Care Teams Environmental Property Assessor Relationship Specialty Start Date End Date Charlie Mera MD NO ADDRESS ON FILE PCP - General 09/19/05 documented as of this encounter
--- OUTSIDE RECORDS SUMMARY | 2024-11-19 16:01 | XMS_ITS | Encounter Summary ---
Author Organization [employer] Address 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
--- OUTSIDE RECORDS SUMMARY | 2024-11-19 16:01 | XMS_ITS | Encounter Summary ---
Author Organization [email or web address] Address 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
--- OUTSIDE RECORDS SUMMARY | 2024-11-19 16:01 | XMS_ITS | Encounter Summary ---
Author Organization [employer] Address 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 Gender Identity Not on file Sexual Orientation Not on file documented as of this encounter Plan of Treatment Not on file documented as of this encounter Procedures Procedure Name Priority Date/Time Associated Diagnosis Comments URINALYSIS WITH MICROSCOPIC Routine 01/26/2005 11:49 PM CDT documented in this encounter Results * (ABNORMAL) URINALYSIS WITH MICROSCOPIC (01/26/2005 11:49 PM CDT) COLOR UA Yellow INTERFACE SYSTEM CLARITY UA Clear Clear INTERFACE SYSTEM SPECIFIC GRAVITY UA 1.010 1.001 - 1.035 INTERFACE SYSTEM PH UA 6.5 5.0 - 8.0 INTERFACE SYSTEM LEUKOCYTE ESTERASE UA Trace(A) Negative INTERFACE SYSTEM NITRITE UA Negative Negative INTERFACE SYSTEM PROTEIN UA Negative Negative INTERFACE SYSTEM GLUCOSE UA Negative Negative INTERFACE SYSTEM KETONES UA Negative Negative INTERFACE SYSTEM UROBILINOGEN UA <1 <1 EU INTE RFACE SYSTEM BILIRUBIN UA Negative Negative INTERFA CE SYSTEM BLOOD UA Trace(A) Negative INTERFACE SYSTEM WBC UA 10(H) 0 - 5 /HPF INTERFACE SYSTEM RBC UA 6(H) 0 - 4 /HPF INTERFACE SYSTEM EPITHELIAL CELLS, URINE 2-5 /HPF INTERFACE SYSTEM 01/26/2005 11:4 9 PM CDT us Valente Maher (Excluded Provider) Marija CAMEJO URINE O RDERABLES Final Result INTERFACE SYSTEM Refer to clinic/hospital department documented in this encounter Visit Diagnoses Diagnosis Other current maternal conditions classifiable elsewhere, antepartum- Primary documented in this encounter Care Teams Ice Cream Scooper Relationship Specialty Start Date End Date Charlie Mera MD NO ADDRESS ON FILE PCP - General 09/19/05 documented as of this encounter
--- OUTSIDE RECORDS SUMMARY | 2024-11-19 16:01 | XMS_ITS | Encounter Summary ---
Author Organization [facility] [facility] Address [address] [place] [address] Phone Care Team Providers Care Desk Clerks Supervisor Name Role Phone Ute Betancourt MD Primary Care Provider [phone] Reason for Visit * Reason Onset Date Comments Med Refill 07/09/2022 Encounter Details Date Type Department Care Team ([facility] Contact Info) Description 07/09/2022 Refill [facility] [address] [place] [id number] [place] [address] [place] [address] Social History Tobacco Use Types Packs/Day Years Used Date Smoking Tobacco: Former Cigarettes Smokeless Tobacco: Never Sex and Gender Information Value Date Recorded Sex Assigned at Not on file Gender Identity Not on file Sexual Orientation Not on file documented as of this encounter Miscellaneous Notes * Telephone Encounter - Sangita Emerson MA - 07/09/2022 12:49 PM CDT Called into the pharmacy today documented in this encounter Plan of Treatment Upcoming Encounters Date Type Department Care Team ([facility] Contact Info) Description 11/10/2025 4:40 PM COAL WHEELER Office Visit [facility] [address] [place] [address] Daniel Chun MD [address] [address] documented as of this encounter Visit Diagnoses Not on filedocumented in this encounter Care Teams Desk Clerks Supervisor Relationship Specialty Start Date End Date Ute Betancourt MD [address] [place] [phone] PCP - General 07/18/20 documented as of this encounter
--- OUTSIDE RECORDS SUMMARY | 2024-11-19 16:01 | XMS_ITS | Encounter Summary ---
Author Organization [facility] Address [address] [place] [address] Care Team Providers Care Adjunct Philosophy Faculty Name Role Phone Charlie Mera MD Primary Care Provider Unavailab le Encounter Details Date Type Department Care Team (Late st Contact Info) Description 04/24/2005 Outpatient Historical [facility] Maternal and Ground Floor [address] [place] [address] Pratki Asencio DO [address] [facility] [address] [place], [place] [id number] Social History Tobacco Use Types Packs/Day Years Used Date Smoking Tobacco: Never Assessed Comments Unknown Sex and Gender Information Value Date Recorded Sex Assigned at Not on file Legal Sex Female 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
--- OUTSIDE RECORDS SUMMARY | 2024-11-19 16:01 | XMS_ITS | Encounter Summary ---
Author Organization [facility] Address [address] [place] [address] Care Team Providers Care Pv Design Engineer Name Role Phone Charlie Mera MD Primary Care Provider Unavailab le Encounter Details Date Type Department Care Team (Late st Contact Info) Description 03/27/2005 Outpatient Historical [facility] Maternal and Ground Floor [address] [place] [address] Pratik Asencio DO [address] [facility] [address] [place], [place] [id number] Social History Tobacco Use Types Packs/Day Years Used Date Smoking Tobacco: Never Assessed Comments Unknown Sex and Gender Information Value Date Recorded Sex Assigned at Not on file Legal Sex Female 4:21 AM WOUND/OSTOMY CLINICAL NURSE SPECIALIST Gender Identity Not on file Sexual Orientation Not on file documented as of this encounter Plan of Treatment Not on file documented as of this encounter Visit Diagnoses Not on filedocumented in this encounter Care Teams Pv Design Engineer Relationship Specialty Start Date End Date Charlie Mera MD NO ADDRESS ON FILE PCP - General 09/19/05 documented as of this encounter
--- OUTSIDE RECORDS SUMMARY | 2024-11-19 16:01 | XMS_ITS | Encounter Summary ---
Author Organization [employer] Address [address] [place] [address] Care Team Providers Care Catering Administrative Assistant Name Role Phone Charlie Mera MD Primary Care Provider Mary tapia Encounter Details Date Type Department Care Team (Latest Contact Info) Description 04/28/2005 Outpatient Historical [facility] Pratik Asencio, [address] [address] [address] OTHER CURR COND-ANTEPARTUM (Primary Dx) Social History Tobacco Use Types Packs/Day Years Used Date Smoking Tobacco: Never Assessed Comments Unknown Sex and Gender Information Value Date Recorded Sex Assigned at Not on file Legal Sex Female 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
--- OUTSIDE RECORDS SUMMARY | 2024-11-19 16:01 | XMS_ITS | Encounter Summary ---
Author Organization [employer] Address 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035 INTERFACE SYSTEM PH UA 6.0 5.0 - 8.0 INTERFACE SYSTEM LEUKOCYTE ESTERASE UA Trace(A) Negative INTERFACE SYSTEM NITRITE UA Negative Negative INTERFACE SYSTEM PROTEIN UA Negative Negative INTERFACE SYSTEM GLUCOSE UA Negative Negative INTERFACE SYSTEM KETONES UA Negative Negative INTERFACE SYSTEM UROBILINOGEN UA <1 <1 EU INTE RFACE SYSTEM BILIRUBIN UA Negative Negative INTERFA CE SYSTEM BLOOD UA 1+(A) Negative INTERFACE SYSTEM WBC UA 4 0 - 5 /HPF INTERFACE SYSTEM RBC UA 21(H) 0 - 4 /HPF INTERFACE SYSTEM BACTERIA UA 1+(A) None Seen /HPF INTERFACE SYSTEM EPITHELIAL CELLS, URINE 2-5 /HPF INTERFACE SYSTEM 02/01/2005 5:04 PM CDT Valente Maher (Excluded Provider) Marija CAMEJO URINE O RDERABLES Final Result Performing Organization Address [facility] de Phone Number INTERFACE SYSTEM Refer to clinic/hospital department * CBC WITH DIFFERENTIAL (02/01/2005 5:04 PM CDT) NEUTROPHILS 70 45 - 70 % INTERFAC E SYSTEM LYMPHOCYTES 22 16 - 45 % INTERFAC E SYSTEM MONOCYTES 7 3 - 13 % INTERFACE SYSTEM EOSINOPHILS 1 0 - 7 % INTERFAC E SYSTEM BASOPHILS 0 0 - 2 % INTERFACE SYSTEM NEUTROPHIL ABSOLUTE 6.39 1.90 - 7.00 K/uL INTERFACE SYSTEM LYMPHOCYTE ABSOLUTE 1.98 0.70 - 4.50 K/uL INTERFACE SYSTEM MONOCYTE ABSOLUTE 0.62 0.10 - 1.30 K/uL INTERFACE SYSTEM EOSINOPHIL ABSOLUTE 0.13 0.00 - 0.70 K/uL INTERFACE SYSTEM BASOPHILS ABSOLUTE 0.02 0.00 - 0.20 K/uL INTERFACE SYSTEM 02/01/2005 5:04 PM CDT Valente Maher (Excluded Provider) Marija CAMEJO HEMATOL OGY ORDERABLES Final Result Performing Organization Address [facility] de Phone Number INTERFACE SYSTEM Refer to clinic/hospital department * CBC WITH DIFFERENTIAL (02/01/2005 5:04 PM CDT) WBC 9.1 4.0 - 9.8 K/uL INTERFACE SYSTEM RBC 4.36 3.90 - 4.90 M/uL INTERFACE SYSTEM HEMOGLOBIN 12.9 11.8 - 14.8 g/dL INTERFACE SYSTEM HEMATOCRIT 37.7 35.5 - 44.0 % INTERFACE SYSTEM MCV 86.5 82.0 - 99.0 fL INTERFACE SYSTEM MCH 29.6 27.2 - 32.6 pg INTERFACE SYSTEM MCHC 34.2 31.5 - 35.5 % INTERFACE SYSTEM RDW 13.7 11.5 - 14.5 % INTERFACE SYSTEM RDW-STDEV 43.7 37.1 - 48.7 fL INTERFACE SYSTEM PLATELETS 172 140 - 350 K/uL INTERFACE SYSTEM MPV 11.1 9.3 - 12.4 fL INTERFACE SYSTEM 02/01/2005 5:04 PM CDT us Valente Maher (Excluded Provider) Marija CAMEJO HEMATOL OGY ORDERABLES Final Result INTERFACE SYSTEM Refer to clinic/hospital department documented in this encounter Visit Diagnoses Diagnosis Other current maternal conditions classifiable elsewhere, antepartum- Primary documented in this encounter Care Teams Lead Caster Helper Relationship Specialty Start Date End Date Charlie Mera MD NO ADDRESS ON FILE PCP - General 09/19/05 documented as of this encounter
--- OUTSIDE RECORDS SUMMARY | 2024-11-19 16:01 | XMS_ITS | Encounter Summary ---
Author Organization [facility] Address 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
--- OUTSIDE RECORDS SUMMARY | 2024-11-19 16:01 | XMS_ITS ---
Author Organization [facility] Address [address] [place] [address] Care Team Providers Care Wood Technologist Name Role Phone Shelton Kraus Primary Care Provider REASON FOR VISIT refills Medications Medication SIG (Take, Route, Frequency, Duration) Notes Start Date End Date Status Eszopiclone 2 MG 1 tablet immediately before bedtime for treatment of insomnia Orally Once a day. Do NOT take with opioids or alcohol. for 30 days 06/17/2024 Active hydrOXYzine Pamoate 25 MG 1 capsule Orally Three times a day for 90 days As needed for anxiety Active Encounters Encounter Location Date Provider Diagnosis [address] [place] [address] 06/16/2024 Shelton Kraus Insomnia G47.00 and Panic disorder [episodic paroxysmal anxiety] F41.0 Assessments Encounter Date Diagnosis (ICD Code) Assessment Notes Treatment Notes Treatment Clinical Notes Section Notes 06/16/2024 Insomnia (ICD-10 - G47.00) 06/16/2024 Panic disorder [episodic paroxysmal anxiety] (ICD-10 - F41.0) Plan Of Treatment Medication Medication Name Sig Start Date Stop Date Notes Eszopiclone 2 MG 1 tablet immediately before bedtime for treatment of insomnia Orally Once a day. Do NOT take with opioids or alcohol. for 30 days 06/17/2024 hydrOXYzine Pamoate 25 MG 1 capsule Oral ly Three times a day for 90 days Progress Notes * Anh ZENDEJASDOB: 1 (53 yo F)Acc No.[id number]:06/16/2024 Patient: Satnam SIDDIQUIara :1970 A ge:53 Y S ex:Female Address:[address] [place] [address] [place], [address] * Refills Increase Eszopiclone Tablet, 2 MG, Orally, 30, 1 tablet immediately before bedtime for treatment of insomnia, Once a day. Do NOT take with opioids or alcohol., 30 days, Refills=1 Refill hydrOXYzine Pamoate Capsule, 25 MG, Orally, 270 Capsule, 1 capsule, Three times a day, 90 days, Refills=0 Subjective: * Chief Complaints: * R efills * Medical History: * Surgical History: * Hospitalization/Major Diagno stic Procedure: * Medications: Objective: * Vitals: * Physical Examination: Assessment: * Assessment: 1. I nsomnia - G47.00 (Primary) 2 . P anic disorder [episodic paroxysmal anxiety] - F41.0 Plan: * Treatment: 2. P anic disorder [episodic paroxysmal anxiety] Refill hydrOXYzine Pamoate Capsule, 25 MG, 1 capsule, Orally, Three times a day As needed for anxiety, 90 days, 270 Capsule, Refills 0. * Procedure Codes: * true * Date: Generated for Bowen danielle/Ariadne/Brodyitting on: 0 11/19/2024 04:01 PM PARTICLE BOARD SUPERVISOR
--- OUTSIDE RECORDS SUMMARY | 2024-11-19 16:01 | XMS_ITS | Encounter Summary ---
Author Organization [facility] Address [address] [place] [address] Care Team Providers Care Planer Chain Offbearer Name Role Phone Charlie Mera MD Primary Care Provider Unavail le Encounter Details Date Type Department Care Team (Late st Contact Info) Description 11/28/2004 Outpatient Historical [facility] [address] [place] [address] Yong Rahman MD [address] [place] [address] Social History Tobacco Use Types Packs/Day Years Used Date Smoking Tobacco: Never Assessed Comments Unknown Sex and Gender Information Value Date Recorded Sex Assigned at Not on file Legal Sex Female 4:21 AM NEON SIGN MAKER Gender Identity Not on file Sexual Orientation Not on file documented as of this encounter Plan of Treatment Not on file documented as of this encounter Visit Diagnoses Not on filedocumented in this encounter Care Teams Planer Chain Offbearer Relationship Specialty Start Date End Date Charlie Mera MD NO ADDRESS ON FILE PCP - General 09/19/05 documented as of this encounter
--- OUTSIDE RECORDS SUMMARY | 2024-11-19 16:01 | XMS_ITS | Encounter Summary ---
Author Organization [employer] Address [address] [place] [address] Care Team Providers Care School Bus Inspector Name Role Phone Charlie Mera MD Primary Care Provider Mary tapia Encounter Details Date Type Department Care Team (Latest Contact Info) Description 04/18/2005 Outpatient Historical HIS PATIENT IN A BED Сергей Carbajal MD [address] [place] [address] Pratik sAencio DO [address] [facility] [address] [address] OTHER CURR COND-ANTEPARTUM (Primary Dx) Social History Tobacco Use Types Packs/Day Years Used Date Smoking Tobacco: Never Assessed Comments Unknown Sex and Gender Information Value Date Recorded Sex Assigned at Not on file 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 Gender Identity Not on file Sexual Orientation Not on file documented as of this encounter Plan of Treatment Not on file documented as of this encounter Procedures Procedure Name Priority Date/Time Associated Diagnosis Comments CBC WITH DIFFERENTIAL Routine 04/18/2005 9:40 PM CDT CBC WITH DIFFERENTIAL Routine 04/18/2005 9:40 PM CDT URINALYSIS WITH REFLEX CULTURE Routine 04/18/2005 8:53 PM CDT URINALYSIS W/REFLEX MICROSCOPIC Routine 04/18/2005 8:53 PM CDT documented in this encounter Results * (ABNORMAL) CBC WITH DIFFERENTIAL (04/18/2005 9:40 PM CDT) Pathologist [facility] NEUTROPHILS 73(H) 45 - 70 % INTERFAC E SYSTEM LYMPHOCYTES 19 16 - 45 % INTERFAC E SYSTEM MONOCYTES 7 3 - 13 % INTERFACE SYSTEM EOSINOPHILS 1 0 - 7 % INTERFAC E SYSTEM BASOPHILS 0 0 - 2 % INTERFACE SYSTEM NEUTROPHIL ABSOLUTE 8.34(H) 1.90 - 7.00 K/uL INTERFACE SYSTEM LYMPHOCYTE ABSOLUTE 2.10 0.70 - 4.50 K/uL INTERFACE SYSTEM MONOCYTE ABSOLUTE 0.81 0.10 - 1.30 K/uL INTERFACE SYSTEM EOSINOPHIL ABSOLUTE 0.11 0.00 - 0.70 K/uL INTERFACE SYSTEM BASOPHILS ABSOLUTE 0.01 0.00 - 0.20 K/uL INTERFACE SYSTEM 04/18/2005 9:40 PM CDT Pratik Asencio DO HEMATOLOGY ORDERABLES Final Re sult Performing Organization Address [facility] de Phone Number INTERFACE SYSTEM Refer to clinic/hospital department * (ABNORMAL) CBC WITH DIFFERENTIAL (04/18/2005 9:40 PM CDT) [facility] WBC 11.4(H) 4.0 - 9.8 K/uL INTERFACE SYSTEM RBC 3.85(L) 3.90 - 4.90 M/uL INTERFACE SYSTEM HEMOGLOBIN 11.2(L) 11.8 - 14.8 g/dL INTERFACE SYSTEM HEMATOCRIT 32.4(L) 35.5 - 44.0 % INTERFACE SYSTEM MCV 84.2 82.0 - 99.0 fL INTERFACE SYSTEM MCH 29.1 27.2 - 32.6 pg INTERFACE SYSTEM MCHC 34.6 31.5 - 35.5 % INTERFACE SYSTEM RDW 13.0 11.5 - 14.5 % INTERFACE SYSTEM RDW-STDEV 39.3 37.1 - 48.7 fL INTERFACE SYSTEM PLATELETS 164 140 - 350 K/uL INTERFACE SYSTEM MPV 10.9 9.3 - 12.4 fL INTERFACE SYSTEM 04/18/2005 9:40 PM CDT Pratik Asencio DO HEMATOLOGY ORDERABLES Final Re sult Performing Organization Address [facility] Co de Phone Number INTERFACE SYSTEM Refer to clinic/hospital department * URINALYSIS (04/18/2005 8:53 PM CDT) COLOR UA Pale Yellow INTERFAC E SYSTEM CLARITY UA Clear Clear INTERFACE SYSTEM SPECIFIC GRAVITY UA 1.010 1.001 - 1.035 INTERFACE SYSTEM PH UA 6.5 5.0 - 8.0 INTERFACE SYSTEM LEUKOCYTE ESTERASE UA Negative Negative INTERFACE SYSTEM NITRITE UA Negative Negative [...] SYSTEM BLOOD UA Negative Negative INTERFACE SYSTEM 04/18/2005 8:53 PM CDT Pratik Asencio DO URINE ORDERABLES Final Result Performing Organization Address [facility] Phone Number INTERFACE SYSTEM Refer to clinic/hospital department * URINALYSIS WITH REFLEX CULTURE (04/18/2005 8:53 PM CDT) URINE CULTURE ORDER Not indicated INTERFACE SYSTEM Comment: Criteria for a reflex culture include one or more of the following: Abn ormal nitrite, leukocyte esterase, WBCs or RBCs. Lack of qualifying criteria does not exclude the possiblity of a urinary tract infection. Dilute urine, drug interference, etc. may decrease the sensitivity of the criteria analytes. 04/18/2005 8:53 PM CDT Pratik Asencio DO URINE ORDERABLES Final Result Performing Organization Address [facility] Phone Number INTERFACE SYSTEM Refer to clinic/hospital department documented in this encounter Visit Diagnoses Diagnosis Other current maternal conditions classifiable elsewhere, antepartum- Primary documented in this encounter Care Teams School Bus Inspector Relationship Specialty Start Date End Date Charlie Mera MD NO ADDRESS ON FILE PCP - General 09/19/05 documented as of this encounter
--- OUTSIDE RECORDS SUMMARY | 2024-11-19 16:01 | XMS_ITS | Encounter Summary ---
Author Organization [facility] Address 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
--- OUTSIDE RECORDS SUMMARY | 2024-11-19 16:02 | XMS_ITS | Encounter Summary ---
Author Organization [facility] Address [address] [place] [address] Care Team Providers Care Bundle Person Name Role Phone Charlie Mera MD Primary Care Provider Unavailab le Encounter Details Date Type Department Care Team (Late st Contact Info) Description 08/03/2004 Outpatient Historical 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
--- OUTSIDE RECORDS SUMMARY | 2024-11-19 16:02 | XMS_ITS | Encounter Summary ---
Author Organization [email or web address] Address 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
--- OUTSIDE RECORDS SUMMARY | 2024-11-19 16:02 | XMS_ITS | Encounter Summary ---
Author Organization [employer] Address [address] [place] [address] Care Team Providers Care Flower Buncher Or Picker Name Role Phone Charlie Mera MD Primary Care Provider Mary tapia Encounter Details Date Type Department Care Team (Latest Contact Info) Description 06/14/2005 Inpatient Historical HIS PATIENT IN A BED Jackson Theodore MD [address] [place] [address] Pratik Asencio DO [address] [place] [address] [place], [place] [phone] INFECTION-ANTEPARTUM (Primary Dx) Social History Tobacco Use Types Packs/Day Years Used Date Smoking Tobacco: Never Assessed Comments Unknown Sex and Gender Information Value Date Recorded Sex Assigned at Not on file Legal 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 Female 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 Gender Identity Not on file Sexual Orientation Not on file documented as of this encounter Plan of Treatment Not on file documented as of this encounter Procedures Procedure Name Priority Date/Time Associated Diagnosis Comments TSH Routine 06/20/2005 5:15 AM CDT T4 FREE Routine 06/20/2005 5:15 AM CDT PTH INTACT Routine 06/20/2005 5:15 AM CDT COMPREHENSIVE METABOLIC PANEL Routine 06/20/2005 5:15 AM CDT GENTAMICIN LEVEL PEAK Routine 06/17/2005 2:40 PM CDT GENTAMICIN LEVEL TROUGH Routine 06/17/2005 1:30 PM CDT GENTAMICIN LEVEL PEAK Routine 06/16/2005 5:00 PM CDT GENTAMICIN LEVEL TROUGH Routine 06/16/2005 3:30 PM CDT GLUCOSE, AMNIOTIC FLUID Routine 06/14/2005 10:20 PM CDT CBC WITH DIFFERENTIAL Routine 06/14/2005 5:17 PM CDT CBC WITH DIFFERENTIAL Routine 06/14/2005 5:17 PM CDT URINALYSIS WITH REFLEX CULTURE Routine 06/14/2005 4:09 PM CDT URINALYSIS W/REFLEX MICROSCOPIC Routine 06/14/2005 4:09 PM CDT documented in this encounter Results * (ABNORMAL) COMPREHENSIVE METABOLIC PANEL (06/20/2005 5:15 AM CDT) GLUCOSE 88 65 - 109 mg/dL INTERFACE SYSTEM CREATININE 0.7 0.4 - 1.2 mg/dL INTERFACE SYSTEM CALCIUM 8.9 8.6 - 10.2 mg/dL INTERFACE SYSTEM AST 14 12 - 32 U/L INTERFACE SYSTEM ALKALINE PHOSPHATASE 86 35 - 104 U/L INTERFACE SYSTEM BUN 10 6 - 20 mg/dL INTERFACE SYSTEM BILIRUBIN TOTAL 0.2 0.2 - 1.0 mg/dL INTERFACE SYSTEM ALBUMIN 2.9(L) 3.4 - 4.8 g/dL INTERFACE SYSTEM TOTAL PROTEIN 6.3 6.3 - 8.6 g/dL INTERFACE SYSTEM ALT 15 0 - 31 U/L INTERFACE SYSTEM SODIUM 136 135 - 145 mmol/L INTERFACE SYSTEM POTASSIUM 3.3(L) 3.5 - 4.9 mmol/L INTERFACE SYSTEM CHLORIDE 102 96 - 108 mmol/L INTERFACE SYSTEM CO2 27 22 - 30 mmol/L INTERFACE SYSTEM 06/20/2005 5:15 AM CDT us Сергей Carbajal MD CHEMISTRY ORDERABLES Final Result INTERFACE SYSTEM Refer to clinic/hospital department * PTH INTACT (06/20/2005 5:15 AM CDT) CALCIUM 8.9 8.6 - 10.2 mg/dL INTERFACE SYSTEM PTH INTACT 49 15 - 65 pg/mL INTERFACE SYSTEM 06/20/2005 5:15 AM CDT us Сергей Carbajal MD CHEMISTRY ORDERABLES Final Result Performing Organization Address City/[facility] Phone Number INTERFACE SYSTEM Refer to clinic/hospital department * T4 FREE (06/20/2005 5:15 AM CDT) T4 FREE 0.9 0.9 - 1.7 ng/dL INTERFACE SYSTEM 06/20/2005 5:15 AM CDT Сергей Carbajal MD CHEMISTRY ORDERABLES Final Result Performing Organization Address [facility] Phone Number INTERFACE SYSTEM Refer to clinic/hospital department * TSH (06/20/2005 5:15 AM CDT) TSH 1.58 0.27 - 4.20 uU/mL INTERFACE SYSTEM 06/20/2005 5:15 AM CDT us Сергей Carbajal MD CHEMISTRY ORDERABLES Final Result Performing Organization Address [facility] Phone Number INTERFACE SYSTEM Refer to clinic/hospital department * GENTAMICIN LEVEL PEAK (06/17/2005 2:40 PM CDT) GENTAMICIN, PEAK 6.9 6.0 - 10.0 ug/mL INTERFACE SYSTEM Comment:Gentamicin Peak Toxi c Level= >12.0 ug/mL 06/17/2005 2:40 PM CDT us Jackson Theodore MD CHEMISTRY ORDERABLES Fin al Result Performing Organization Address [facility] Phone Number INTERFACE SYSTEM Refer to clinic/hospital department * GENTAMICIN LEVEL TROUGH (06/17/2005 1:30 PM CDT) GENTAMICIN, TROUGH 0.7 0.0 - 2.0 ug/mL INTERFACE SYSTEM Comment:Gentamicin Trough To xic Level = > 2.0 ug/mL 06/17/2005 1:30 PM CDT us Pratik Asencio DO CHEMISTRY ORDERABLES Final Res ult Performing Organization Address [facility] Phone Number INTERFACE SYSTEM Refer to clinic/hospital department * (ABNORMAL) GENTAMICIN LEVEL PEAK (06/16/2005 5:00 PM CDT) GENTAMICIN, PEAK 2.6(L) 6.0 - 10.0 ug/mL INTERFACE SYSTEM Comment:Gentamicin Peak Toxi c Level= >12.0 ug/mL 06/16/2005 5:00 PM CDT Jackson Theodore MD CHEMISTRY ORDERABLES Fin al Result Performing Organization Address [facility] Number INTERFACE SYSTEM Refer to clinic/hospital department * GENTAMICIN LEVEL TROUGH (06/16/2005 3:30 PM CDT) GENTAMICIN, TROUGH <0.4 0.0 - 2.0 ug/mL INTERFACE SYSTEM Comment:Gentamicin Trough To xic Level = > 2.0 ug/mL 06/16/2005 3:30 PM CDT Pratik Asencio DO CHEMISTRY ORDERABLES Final Res ult Performing Organization Address [facility] Phone Number INTERFACE SYSTEM Refer to clinic/hospital department * GLUCOSE, AMNIOTIC FLUID (06/14/2005 10:20 PM CDT) GLUCOSE, AMNIOTIC FLD 32 mg/dL INTERFACE SYSTEM Comment:No Reference Range E stablished for Amniotic Fluid Glucose 06/14/2005 10:2 0 PM CDT Pratik Asencio DO BODY FLUIDS AND STOOLS Final R esult INTERFACE SYSTEM Refer to clinic/hospital department * (ABNORMAL) CBC WITH DIFFERENTIAL (06/14/2005 5:17 PM CDT) NEUTROPHILS 91(H) 45 - 70 % INTERFAC E SYSTEM LYMPHOCYTES 4(L) 16 - 45 % INTERFAC E SYSTEM MONOCYTES 4 3 - 13 % INTERFACE SYSTEM EOSINOPHILS 0 0 - 7 % INTERFAC E SYSTEM BASOPHILS 0 0 - 2 % INTERFACE SYSTEM NEUTROPHIL ABSOLUTE 18.18(H) 1.90 - 7.00 K/uL INTERFACE SYSTEM LYMPHOCYTE ABSOLUTE 0.81 0.70 - 4.50 K/uL INTERFACE SYSTEM MONOCYTE ABSOLUTE 0.86 0.10 - 1.30 K/uL INTERFACE SYSTEM EOSINOPHIL ABSOLUTE 0.01 0.00 - 0.70 K/uL INTERFACE SYSTEM BASOPHILS ABSOLUTE 0.01 0.00 - 0.20 K/uL INTERFACE SYSTEM 06/14/2005 5:17 PM CDT Pratik Asencio DO HEMATOLOGY ORDERABLES Final Re sult Performing Organization Address City/State/[facility] Co de Phone Number INTERFACE SYSTEM Refer to clinic/hospital department * (ABNORMAL) CBC WITH DIFFERENTIAL (06/14/2005 5:17 PM CDT) WBC 19.9(H) 4.0 - 9.8 K/uL INTERFACE SYSTEM RBC 3.78(L) 3.90 - 4.90 M/uL INTERFACE SYSTEM HEMOGLOBIN 11.2(L) 11.8 - 14.8 g/dL INTERFACE SYSTEM HEMATOCRIT 32.3(L) 35.5 - 44.0 % INTERFACE SYSTEM MCV 85.4 82.0 - 99.0 fL INTERFACE SYSTEM MCH 29.6 27.2 - 32.6 pg INTERFACE SYSTEM MCHC 34.7 31.5 - 35.5 % INTERFACE SYSTEM RDW 13.5 11.5 - 14.5 % INTERFACE SYSTEM RDW-STDEV 42.0 37.1 - 48.7 fL INTERFACE SYSTEM PLATELETS 143 140 - 350 K/uL INTERFACE SYSTEM MPV 10.9 9.3 - 12.4 fL INTERFACE SYSTEM 06/14/2005 5:17 PM CDT us Pratik Asencio DO HEMATOLOGY ORDERABLES Final Re sult Performing Organization Address [facility] Phone Number INTERFACE SYSTEM Refer to clinic/hospital department * (ABNORMAL) URINALYSIS (06/14/2005 4:09 PM CDT) COLOR UA Yellow INTERFACE SYSTEM [...] UA <1 <1 mg/dL INTE RFACE SYSTEM BILIRUBIN UA Negative Negative INTERFA CE SYSTEM BLOOD UA Negative Negative INTERFACE SYSTEM WBC UA 3 0 - 5 /HPF INTERFACE SYSTEM RBC UA 2 0 - 4 /HPF INTERFACE SYSTEM BACTERIA UA 2+(A) None Seen /HPF INTERFACE SYSTEM EPITHELIAL CELLS, URINE 2-5 /HPF INTERFACE SYSTEM 06/14/2005 4:09 PM CDT Pratik Asencio DO URINE ORDERABLES Final Result Performing Organization Address [facility] Phone Number INTERFACE SYSTEM Refer to clinic/hospital department * URINALYSIS WITH REFLEX CULTURE (06/14/2005 4:09 PM CDT) Pathologist [facility] URINE CULTURE ORDER Culture ordered INTERFACE SYSTEM Comment: Criteria for a reflex culture include one or more of the following: Abn ormal nitrite, leukocyte esterase, WBCs or RBCs. Lack of qualifying criteria does not exclude the possiblity of a urinary tract infection. Dilute urine, drug interference, etc. may decrease the sensitivity of the criteria analytes. 06/14/2005 4:09 PM CDT Pratik Asencio DO URINE ORDERABLES Final Result Performing Organization Address [facility] Phone Number INTERFACE SYSTEM Refer to clinic/hospital department documented in this encounter Visit Diagnoses Diagnosis Infections of genitourinary tract antepartum- Primary documented in this encounter Care Teams Flower Buncher Or Picker Relationship Specialty Start Date End Date Charlie Mera MD NO ADDRESS ON FILE PCP - General 09/19/05 documented as of this encounter
--- OUTSIDE RECORDS SUMMARY | 2024-11-19 16:02 | XMS_ITS | Encounter Summary ---
Author Organization [facility] Address [address] [place] [address] Care Team Providers Care Carry Out Clerk And Shelf Stocker Name Role Phone Charlie Mera MD Primary Care Provider Unavailab le Encounter Details Date Type Department Care Team (Late st Contact Info) Description 05/22/2005 Outpatient Historical [facility] and [facility] [address] [place] [phone] Pratik Asencio DO [address] [facility] [address] [place], [place] [phone] Social History Tobacco Use Types Packs/Day Years Used Date Smoking Tobacco: Never Assessed Comments Unknown Sex and Gender Information Value Date Recorded Sex Assigned at Not on file 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
--- OUTSIDE RECORDS SUMMARY | 2024-11-19 16:02 | XMS_ITS | Patient Health Record ---
Author Organization [facility] Address [address] [place] [address] Care Team Providers Care Oyster Sorter Name Role Phone Shelton Kraus Primary Care Provider [phone] Allergies Allergen (clinical drug ingredient) Drug/Non Drug Allergy documented on EMR Reaction Allergy Type Onset Date Status Substance with sulfonamide structure and antibacterial mechanism of action (substance) Sulfa Antibiotics hives Drug Allergy Active Reason For Referral No Information Medications Medication SIG (Take, Route, Frequency, Duration) Notes Start Date End Date Status ARIPiprazole 20 MG TAKE 1 TABLET BY MOUTH DAILY for 90 Client states she really needs to at least pick Abilify today due to being out for several days. Active Lasix 40 MG 1 tablet Orally Once a day for 30 day(s) morning Active hydrOXYzine Pamoate 25 MG 1 capsule Orally Three times a day for 90 days As needed for anxiety Client states she really needs to at least pick Abilify today due to being out for several days. Active Potassium Chloride 20 MEQ 1 packet with food Orally Once a day for 30 day(s) Active Eszopiclone 2 MG 1 tablet immediately before bedtime for treatment of insomnia Orally Once a day. Do NOT take with opioids or alcohol. for 30 days Client states she really needs to at least pick Abilify today due to being out for several days. 11/11/2024 Active Lasix 20 MG 1 tablet Orally Once a day for 30 day(s) afternoon Active Pantoprazole Sodium 40 MG 1 tablet Orally Once a day for 30 day(s) takes twice a day Active Ropinirole Hydrochloride 0.5mg Active Cyclobenzaprine HCl 10 MG 1 tablet at bedtime as needed Orally Once a day for 30 day(s) Active Topiramate 100 MG TAKE 1 AND 1/2 TABLETS BY MOUTH EVERY DAY AT BEDTIME for 90 Active Robinul For stomach as needed Active Diclofenac Client unsure of dose, unseen in external rx hx Active Citalopram Hydrobromide 40 MG TAKE 1 TABLET BY MOUTH EVERY DAY for 90 Client states she really needs to at least pick Abilify today due to being out for several days. Active Social History Tobacco Use: Social History Observation Description Date Details (start date - stop date) Light tobacco s emmaker NA - NA Tobacco Control (Standard) Question Answer Notes Tobacco use: Light tobacco smoker Additional Findings: Tobacco user e-cigarette Section Notes: Meth yes age 23, did 3 times Lsd/pcp did pcp when she was 21 years of age Cigarette smoker just quit a month ago, started smoking 3 years ago a pack a day Education/High school/GED/college graduated from high school, has had a lot of college classes Work history/current job doesn't work, worked a [employer] for a few months , worked at [employer] for about 13 years, she is on disability Marital status was 8 years, 3 children, 19, 11, 10 /legal/probation denies Meth yes age 23, did 3 times Lsd/pcp did pcp when she was 21 years of age Cigarette smoker just quit a month ago, started smoking 3 years ago a pack a day Education/High school/GED/college graduated from high school, has had a lot of college classes Work history/current job doesn't work, worked a [employer] for a few months , worked at [employer] for about 13 years, she is on disability Marital status was 8 years, 3 children, 19, 11, 10 /legal/probation denies Meth yes age 23, did 3 times Lsd/pcp did pcp when she was 21 years of age Cigarette smoker just quit a month ago, started smoking 3 years ago a pack a day Education/High school/GED/college graduated from high school, has had a lot of college classes Work history/current job doesn't work, worked a [employer] for a few months , worked at [employer] for about 13 years, she is on disability Marital status was 8 years, 3 children, 19, 11, 10 /legal/probation denies Meth yes age 23, did 3 times Lsd/pcp did pcp when she was 21 years of age Cigarette smoker just quit a month ago, started smoking 3 years ago a pack a day Education/High school/GED/college graduated from high school, has had a lot of college classes Work history/current job doesn't work, worked a [employer] for a few months , worked at [employer] for about 13 years, she is on disability Marital status was 8 years, 3 children, 19, 11, 10 /legal/probation denies Meth yes age 23, did 3 times Lsd/pcp did pcp when she was 21 years of age Cigarette smoker just quit a month ago, started smoking 3 years ago a pack a day Education/High school/GED/college graduated from high school, has had a lot of college classes Work history/current job doesn't work, worked a [employer] for a few months , worked at [employer] for about 13 years, she is on disability Marital status was 8 years, 3 children, 19, 11, 10 /legal/probation denies Meth yes age 23, did 3 times Lsd/pcp did pcp when she was 21 years of age Cigarette smoker just quit a month ago, started smoking 3 years ago a pack a day Education/High school/GED/college graduated from high school, has had a lot of college classes Work history/current job doesn't work, worked a [employer] for a few months , worked at [employer] for about 13 years, she is on disability Marital status was 8 years, 3 children, 19, 11, 10 /legal/probation denies Meth yes age 23, did 3 times Lsd/pcp did pcp when she was 21 years of age Cigarette smoker just quit a month ago, started smoking 3 years ago a pack a day Education/High school/GED/college graduated from high school, has had a lot of college classes Work history/current job doesn't work, worked a [employer] for a few months , worked at [employer] for about 13 years, she is on disability Marital status was 8 years, 3 children, 19, 11, 10 /legal/probation denies Meth yes age 23, did 3 times Lsd/pcp did pcp when she was 21 years of age Cigarette smoker just quit a month ago, started smoking 3 years ago a pack a day Education/High school/GED/college graduated from high school, has had a lot of college classes Work history/current job doesn't work, worked a [employer] for a few months , worked at [employer] for about 13 years, she is on disability Marital status was 8 years, 3 children, 19, 11, 10 /legal/probation denies Meth yes age 23, did 3 times Lsd/pcp did pcp when she was 21 years of age Cigarette smoker just quit a month ago, started smoking 3 years ago a pack a day Education/High school/GED/college graduated from high school, has had a lot of college classes Work history/current job doesn't work, worked a [employer] for a few months , worked at [employer] for about 13 years, she is on disability Marital status was 8 years, 3 children, 19, 11, 10 /legal/probation denies Meth yes age 23, did 3 times Lsd/pcp did pcp when she was 21 years of age Cigarette smoker just quit a month ago, started smoking 3 years ago a pack a day Education/High school/GED/college graduated from high school, has had a lot of college classes Work history/current job doesn't work, worked a [employer] for a few months , worked at [employer] for about 13 years, she is on disability Marital status was 8 years, 3 children, 19, 11, 10 /legal/probation denies Meth yes age 23, did 3 times Lsd/pcp did pcp when she was 21 years of age Cigarette smoker just quit a month ago, started smoking 3 years ago a pack a day Education/High school/GED/college graduated from high school, has had a lot of college classes Work history/current job doesn't work, worked a [employer] for a few months , worked at [employer] for about 13 years, she is on disability Marital status was 8 years, 3 children, 19, 11, 10 /legal/probation denies Meth yes age 23, did 3 times Lsd/pcp did pcp when she was 21 years of age Cigarette smoker just quit a month ago, started smoking 3 years ago a pack a day Education/High school/GED/college graduated from high school, has had a lot of college classes Work history/current job doesn't work, worked a [employer] for a few months , worked at [employer] for about 13 years, she is on disability Marital status was 8 years, 3 children, 19, 11, 10 /legal/probation denies Meth yes age 23, did 3 times Lsd/pcp did pcp when she was 21 years of age Cigarette smoker just quit a month ago, started smoking 3 years ago a pack a day Education/High school/GED/college graduated from high school, has had a lot of college classes Work history/current job doesn't work, worked a [employer] for a few months , worked at [employer] for about 13 years, she is on disability Marital status was 8 years, 3 children, 19, 11, 10 /legal/probation denies Meth yes age 23, did 3 times Lsd/pcp did pcp when she was 21 years of age Cigarette smoker just quit a month ago, started smoking 3 years ago a pack a day Education/High school/GED/college graduated from high school, has had a lot of college classes Work history/current job doesn't work, worked a [employer] for a few months , worked at [employer] for about 13 years, she is on disability Marital status was 8 years, 3 children, 19, 11, 10 /legal/probation denies Meth yes age 23, did 3 times Lsd/pcp did pcp when she was 21 years of age Cigarette smoker just quit a month ago, started smoking 3 years ago a pack a day Education/High school/GED/college graduated from high school, has had a lot of college classes Work history/current job doesn't work, worked a [employer] for a few months , worked at [employer] for about 13 years, she is on disability Marital status was 8 years, 3 children, 19, 11, 10 /legal/probation denies Meth yes age 23, did 3 times Lsd/pcp did pcp when she was 21 years of age Cigarette smoker just quit a month ago, started smoking 3 years ago a pack a day Education/High school/GED/college graduated from high school, has had a lot of college classes Work history/current job doesn't work, worked a [employer] for a few months , worked at [employer] for about 13 years, she is on disability Marital status was 8 years, 3 children, 19, 11, 10 /legal/probation denies Problems Problem Type SNOMED Code ICD Code Onset Dates Problem Status W/U Status Risk Notes Problem 88617701 Bipolar II disorder (F31.81) Active confirmed Problem Insomnia (456831556) Insomnia (G47.00) Active confirmed Problem 10972058 Anorexia nervosa (F50.00) Active confirmed Problem 86988038 Severe episode of recurrent major depressive disorder, 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) Active confirmed Problem 697971822 Panic disorder [episodic paroxysmal anxiety] (F41.0) Active confirmed Encounters Encounter Location Date Provider Diagnosis [address] [address] 01/28/2024 Shelton Kraus Bipolar II disorder F31.81 ; Panic disorder [episodic paroxysmal anxiety] F41.0 and Insomnia G47.[address] [address] 05/13/2024 Shelton Kraus Bipolar II disorder F31.81 ; Insomnia G47.00 and Panic disorder [episodic paroxysmal anxiety] F41.[address] [address] 08/10/2024 Shelton Kraus Bipolar II disorder F31.81 ; Panic disorder [episodic paroxysmal anxiety] F41.0 and Insomnia G47.[address] [address] 11/11/2024 Shelton Kraus Bipolar II disorder F31.81 ; Panic disorder [episodic paroxysmal anxiety] F41.0 and Insomnia G47.[address] [address] 01/08/2024 Shelton Kraus Bipolar II disorder F31.[address] [address] 03/24/2024 Shelton Kraus [address] [address] 04/28/2024 Shelton Kraus Bipolar II disorder F31.[address] [address] 06/16/2024 Shelton Kraus Insomnia G47.00 and Panic disorder [episodic paroxysmal anxiety] F41.0 Assessments Encounter Date Diagnosis (ICD Code) Assessment Notes Treatment Notes Treatment Clinical Notes Section Notes 01/08/2024 Bipolar II disorder (ICD-10 - F31.81) 01/28/2024 Bipolar II disorder (ICD-10 - F31.81) Client agreeable to trial of doxepin to alternate with ramelteon to see if this helps with intermittent insomnia. No other treatment plan changes at this time. 04/28/2024 Bipolar II disorder (ICD-10 - F31.81) 05/13/2024 Bipolar II disorder (ICD-10 - F31.81) 06/16/2024 Insomnia (ICD-10 - G47.00) 06/16/2024 Panic disorder [episodic paroxysmal anxiety] (ICD-10 - F41.0) 08/10/2024 Bipolar II disorder (ICD-10 - F31.81) 11/11/2024 Bipolar II disorder (ICD-10 - F31.81) Client doing well, no tx plan changes needed at this time. 01/28/2024 Panic disorder [episodic paroxysmal anxiety] (ICD-10 - F41.0) Client agreeable to trial of doxepin to alternate with ramelteon to see if this helps with intermittent insomnia. No other treatment plan changes at this time. 08/10/2024 Panic disorder [episodic paroxysmal anxiety] (ICD-10 - F41.0) 11/11/2024 Panic disorder [episodic paroxysmal anxiety] (ICD-10 - F41.0) Client doing well, no tx plan changes needed at this time. 05/13/2024 Insomnia (ICD-10 - G47.00) 05/13/2024 Panic disorder [episodic paroxysmal anxiety] (ICD-10 - F41.0) 01/28/2024 Insomnia (ICD-10 - G47.00) Client agreeable to trial of doxepin to alternate with ramelteon to see if this helps with intermittent insomnia. No other treatment plan changes at this time. 11/11/2024 Insomnia (ICD-10 - G47.00) Client doing well, no tx plan changes needed at this time. 08/10/2024 Insomnia (ICD-10 - G47.00) 01/28/2024 Other Discussed sleep hygiene and caffeine intake with encouragement to limit electronic devices an hour before bed and to limit caffeine after 3:00pm. Exercise benefits for mood and health discussed. Psychoeducation regarding psychiatric illness provided. Client was educated about risks and benefits of medication, alternatives to medication, off label uses of medication, suicidal ideation with SSRIs, self-administratio n and compliance with medication along with how to safely store medication. Verbal informed consent obtained. Client agrees to return sooner if symptoms worsen or if suicidal or homicidal ideations occur. Client has the phone number to the 24-hour crisis line at [facility]. Questions addressed. Client verbalized understanding of all information and is agreeable to treatment plan. Client agreeable to trial of doxepin to alternate with ramelteon to see if this helps with intermittent insomnia. No other treatment plan changes at this time. 05/13/2024 Other Discussed sleep hygiene and caffeine intake with encouragement to limit electronic devices an hour before bed and to limit caffeine after 3:00pm. Exercise benefits for mood and health discussed. Psychoeducation regarding psychiatric illness provided. Client was educated about risks and benefits of medication, alternatives to medication, off label uses of medication, suicidal ideation with SSRIs, self-administratio n and compliance with medication along with how to safely store medication. Verbal informed consent obtained. Client agrees to return sooner if symptoms worsen or if suicidal or homicidal ideations occur. Client has the phone number to the 24-hour crisis line at [facility]. Questions addressed. Client verbalized understanding of all information and is agreeable to treatment plan. 08/10/[place]24 [place]. Discussed sleep hygiene and caffeine intake with encouragement to limit electronic devices an hour before bed and to limit caffeine after 3:00pm. Exercise benefits for mood and health discussed. Psychoeducation regarding psychiatric illness provided. Client was educated about risks and benefits of medication, alternatives to medication, off label uses of medication, suicidal ideation with SSRIs, self-administratio n and compliance with medication along with how to safely store medication. Verbal informed consent obtained. Client agrees to return sooner if symptoms worsen or if suicidal or homicidal ideations occur. Client has the phone number to the 24-hour crisis line at [facility]. Questions addressed. Client verbalized understanding of all information and is agreeable to treatment plan. 11/11/2024 [place]. Discussed sleep hygiene and caffeine intake with encouragement to limit electronic devices an hour before bed and to limit caffeine after 3:00pm. Exercise benefits for mood and health discussed. Psychoeducation regarding psychiatric illness provided. Client was educated about risks and benefits of medication, alternatives to medication, off label uses of medication, suicidal ideation with SSRIs, self-administratio n and compliance with medication along with how to safely store medication. Verbal informed consent obtained. Client agrees to return sooner if symptoms worsen or if suicidal or homicidal ideations occur. Client has the phone number to the 24-hour crisis line at [facility]. Questions addressed. Client verbalized understanding of all information and is agreeable to treatment plan. Client doing well, no tx plan changes needed at this time. 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
--- OUTSIDE RECORDS SUMMARY | 2024-11-19 16:02 | XMS_ITS | Encounter Summary ---
Author Organization [facility] Address [address] [place] [address] Care Team Providers Care Architectural Engineering Teacher Name Role Phone Charlie Mera MD Primary Care Provider Unavailab le Encounter Details Date Type Department Care Team (Late st Contact Info) Description 06/05/2005 Outpatient Historical [facility] Maternal and [facility] [address] [place] [id number] Pratik Asencio DO [address] [facility]- [place], [place] [id number] Social History Tobacco Use Types Packs/Day Years Used Date Smoking Tobacco: Never Assessed Comments Unknown Sex and Gender Information Value Date Recorded Sex Assigned at Not on file 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
--- OUTSIDE RECORDS SUMMARY | 2024-11-19 16:02 | XMS_ITS | Encounter Summary ---
Author Organization [facility] Address [address] [place] [address] Care Team Providers Care Vp Of Technology Name Role Phone Charlie Mera MD Primary Care Provider Mary le Encounter Details Date Type Department Care Team (Late st Contact Info) Description 08/17/2004 Outpatient Historical [facility] Blanco, Jb Garcia MD [address] [facility] [address] [address] [place] [address] PREG W HX OF INFERTILITY (Primary Dx) Social History Tobacco Use Types Packs/Day Years Used Date Smoking Tobacco: Never Assessed Comments Unknown Sex and Gender Information Value Date Recorded Sex Assigned at Not on file 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
--- OUTSIDE RECORDS SUMMARY | 2024-11-19 16:02 | XMS_ITS | Encounter Summary ---
Author Organization [facility] Address [address] [place] [address] Care Team Providers Care Criminal Justice Teacher Name Role Phone Charlie Mera MD Primary Care Provider Unavail le Encounter Details Date Type Department Care Team (Late st Contact Info) Description 09/01/2004 Outpatient Historical [facility] [address] [facility] 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
--- OUTSIDE RECORDS SUMMARY | 2024-11-19 16:02 | XMS_ITS | Encounter Summary ---
Author Organization [facility] Address 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
--- OUTSIDE RECORDS SUMMARY | 2024-11-19 16:02 | XMS_ITS | Encounter Summary ---
Author Organization [employer] Address 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
--- OUTSIDE RECORDS SUMMARY | 2024-11-19 16:02 | XMS_ITS | Encounter Summary ---
Author Organization [facility] Address [address] [place] [address] Care Team Providers Care Hydraulic Pile Hammer Operator Name Role Phone Charlie Mera MD Primary Care Provider Unavailab le Encounter Details Date Type Department Care Team (Late st Contact Info) Description 09/12/2004 Outpatient Historical [facility] [address] [place] [address] Gunner Alvarez MD [address] [facility] [address] [facility] [place] [address] Social History Tobacco Use Types Packs/Day Years Used Date Smoking Tobacco: Never Assessed Comments Unknown Sex and Gender Information Value Date Recorded Sex Assigned at Not on file Legal Sex Female 4:21 AM CONTINUITY EDITOR Gender Identity Not on file Sexual Orientation Not on file documented as of this encounter Plan of Treatment Not on file documented as of this encounter Visit Diagnoses Not on filedocumented in this encounter Care Teams Hydraulic Pile Hammer Operator Relationship Specialty Start Date End Date Charlie Mera MD NO ADDRESS ON FILE PCP - General 09/19/05 documented as of this encounter
--- OUTSIDE RECORDS SUMMARY | 2024-11-19 16:02 | XMS_ITS | Clinical Summary ---
Author Organization [facility] Address [facility] [place] [address] Care Team Providers Care Production Finisher Name Role Phone Pebbles Betancourt NP Primary Care Provider [phone] Lina Arboleda MD Unavailable [phone] Orly Michaud MD Unavailable [phone] Allergies Active Allergy Reactions Criticality Noted Date Comments Sulfa Antibiotics Hives Medium 06/02/2010 Wound Dressing Adhesive Rash Medium 10/31/2020 Silk tape gives me rash Medications Turmeric Curcumin 500 MG Cap Take 1 capsule by mouth daily. 9 Active Cholecalciferol (VITAMIN D3) 1000 units Cap Take 3,000 Units by mouth daily. 9 Active hydrOXYzine 25 MG tablet Take 25-50 mg by mouth every 4 (four) hours as needed for Anxiety. 9 Active pantoprazole EC 40 MG tablet Take 40 mg by mouth 2 (two) times a day. 9 Active sucralfate 1 G tablet Take 1 g by mouth 2 (two) times daily as needed. Active melatonin 5 MG tablet Take 10 mg by mouth nightly as needed. Active rOPINIRole 0.5 MG tablet Take 0.5 mg by mouth nightly at bedtime. 1 Active mirtazapine 30 MG tablet Take 30 mg by mouth nightly at bedtime. 1 Active ARIPiprazole 15 MG tablet Take 20 mg by mouth nightly. 1 Active clonazePAM 2 MG tabletIndications:B ipolar affective disorder, current episode mixed, current episode severity unspecified (CMS/HCC [facility]) Take 1 tablet (2 mg total) by mouth 3 (three) times a day. 12 tablet 1 Active furosemide 40 MG tablet Take 1 tablet (40 mg total) by mouth daily. 30 tablet 1 Active potassium chloride CR 20 MEQ Tab CR tablet Take 20 mEq by mouth 3 (three) times daily. 90 tablet 1 Active ibuprofen 200 MG tablet Take 200 mg by mouth every 6 (six) hours as needed for Pain. Active topiramate 100 MG tablet nightly. 2 Active biotin 300 MCG Tab Take 1 tablet by mouth daily. Active Probiotic Product (PROBIOTIC ADVANCED) Cap Take by mouth daily. Active Multiple Vitamins-Minerals (MULTIVITAMIN ADULTS OR) Take by mouth daily. Active folic acid 800 MCG tablet Take 400 mcg by mouth daily. Active pyridoxine 100 MG tablet Take 100 mg by mouth daily. Active vitamin E 180 MG (400 UNIT) capsule Take by mouth daily. Active hydrOXYzine 25 MG capsule TAKE 1 CAPSULE BY MOUTH THREE TIMES DAILY NEEDED 2 Active LINZESS 72 MCG Cap Take 1 capsule by mouth daily. 2 Active mirtazapine 15 MG tablet TAKE 1/2 TO 1 TABLET BY MOUTH EVERY DAY AT BEDTIME 2 Active potassium chloride CR 20 MEQ tablet 2 Active topiramate 25 MG tablet Take 25 mg by mouth nightly at bedtime. 2 Active Biotin 5 MG Tab Take 5,000 mcg by mouth daily. Active citalopram 40 MG tablet Take 40 mg by mouth daily. Active ondansetron (ZOFRAN-ODT) 4 MG disintegrating tablet Take 1 tablet (4 mg total) by mouth every 6 (six) hours as needed for Nausea. 20 tablet 3 Active acetaminophen-codei ne (TYLENOL/CODEINE #3) 300-30 MG tabletIndications:A cute Pain < 7 Day Supply Take 1 tablet by mouth every 6 (six) hours as needed for Pain. Indications: Acute Pain < 7 Day Supply 10 tablet 3 Active methylPREDNISolone, KOREY, (MEDROL DOSEPAK) 4 MG tablet Take 1 tablet (4 mg total) by mouth daily. 6 TABLETS ON DAY ONE, 5 TABLETS DAY TWO, 4 TABLETS DAY THREE, 3 TABLETS DAY FOUR, 2 TABLETS DAY FIVE, AND 1 TABLET DAY SIX 1 each 3 Active Active Problems Problem Noted Date Diagnosed Date Chronic pain syndrome 12/28/2021 Mechanical complication of d orsal column stimulator, subsequent encounter 12/28/2021 Sacroiliitis 10/12/2021 Foraminal stenosis of lumbar region 10/12/2021 History of lumbar fusion 10/12/2021 Spinal stenosis of lumbar re gion without neurogenic claudication 10/12/2021 Insertional Achilles tendinopathy 05/17/2021 Hypokalemia 03/02/2021 Palpitations 03/02/2021 Abnormal weight gain 02/22/2021 SIRS (systemic inflammatory response syndrome) ([facility]) 02/16/2021 Fatty liver 11/28/2020 Hypoalbuminemia 11/28/2020 Generalized edema 10/22/2020 Fluid retention 10/18/2020 Left renal stone 10/17/2020 Overview (10/22/2020): Added automatically from request for surgery [id number] H/O: urinary stone 10/10/2020 Serum creatinine raised 10/10/2020 Bipolar affective disorder, current episode mixed ([facility]) 05/16/2020 Nonrheumatic aortic (valve) insufficiency 2019 Nephrolithiasis 05/27/2019 Abdominal pain 04/18/2018 Assessment & Plan (04/19/2018 7:28 AM CDT): Acute on chronic, likely 2/2 duodenitis as seen on CT abdomen Pt is chronic back pain on skilled nursing opioid treatment Opioid assoc constipation, but had BM today s/p laxatives [place] on 45 [place] equivalents daily; [place] pain management doctor - liquid diet - Zofran PRN - cont home oxyCODONE-acetaminophen 7.5-325 MG 4 times daily - morphine 2mg q 2 hours PRN for pain - monitor pain requirements Lumbar radiculopathy 03/26/2018 Encephalopathy 09/28/2017 Narcotic overdose, undetermi zana intent, initial encounter ([facility]) 09/27/2017 Assessment & Plan (09/28/2017 9:31 AM CEMENT GRINDING MILL OPERATOR): Found with Fentanyl, Oxycodone, and Methadone around her. Did not recover with 2 Narcan treatments Required intubation as patient unable to protect airway, extubated in ED Drug screen positive only for Methadone. Denies SI/HI. States she did not overdose on purpose - psych consulted, appreciate recs Injury of right ankle 09/27/2017 Overview (09/27/2017): Fell and had swelling in Right ankle. Xray read as no fractures. Plan to address after extubated Assessment & Plan (09/28/2017 9:32 AM CEMENT GRINDING MILL OPERATOR): Fell and had swelling in Right ankle. Xray read as no fractures Able to walk - recommend rest, ice, compression, and elevation Overdose 09/27/2017 Abnormal EKG 03/29/2017 Precordial pain 03/29/2017 Heart abnormality (HHS/HCC) Resolved Problems Problem Noted Date Diagnosed Date Resolved Date ANDRÉS (acute kidney injury) 04/18/2018 Assessment & Plan (04/19/2018 7:27 AM CDT): Acute, resolved with IVF - Cr 1.01 today, back at baseline Encounters Date Type Department Care Team Description 11/07/2024 8:10 AM CEMENT GRINDING MILL OPERATOR - 11/07/2024 11:59 PM CEMENT GRINDING MILL OPERATOR Hospital Encounter [facility] [address] [place] [address] Daniel Chun MD Discharge Disposition: Home or Self Care (Routine Discharge) 11/07/2024 Orders Only [facility] [address] [place] [address] Daniel Chun MD 11/07/2024 Travel 09/14/2024 7:55 AM CEMENT GRINDING MILL OPERATOR - 09/14/2024 11:59 PM CEMENT GRINDING MILL OPERATOR Hospital Encounter [facility] [address] [place] [address] Gulshan Santillan MD Abdul-Aziz, Syed, MD Discharge Disposition: Home or Self Care (Routine Discharge) 09/14/[address] [facility] [place] [address] Gulshan Macdonald MD 09/14/2024 Travel from Last 3 Months Immunizations Name Administration Dates Next Due PFIZER COVID-19 (ORIGINAL FO RMULATION, PURPLE CAP) mRNA, LNP-S, PF, 30 MCG/0.3 ML DOSE 03/29/2021 Family History Medical History Relation Comments Cancer Father Heart Disease Father Hypertension Father Breast Cancer Maternal Grandmother Breast Cancer Mother Cancer Mother Diabetes Mother Hypertension Mother Diabetes Paternal Aunt Breast Cancer Paternal Grandmother Relation Status Comments Father Alive Maternal Grandmother Mother Alive Paternal Aunt Paternal Grandmother Social History Tobacco Use Types Packs/Day Years Used Date Smoking Tobacco: Former Cigarettes 0 09/2010 - 09/2015 Smokeless Tobacco: Never Tobacco Cessation:Counseling Given: Not Answered Comments:current vaping use; former tobacco use, 1ppd x5 years, quit 2015 Alcohol Use Standard Drinks/Week Comments No 0 (1 standard drink = 0.6 oz pur e alcohol) PHQ-2 Answer Date Recorded PHQ-2 Score - If the patient scores above 3, please move on to questions 3-9 0 09/26/2021 Education Answer Date Recorded What is the highest level of school you have completed or the highest degree you have received? Associate degree: academic program 11/21/2021 Comments No Sex and Gender Information Value Date Recorded Sex Assigned at Female 11/07/2024 8:08 AM CEMENT GRINDING MILL OPERATOR Legal Sex Female 3:59 PM CDT Gender Identity Not on file Sexual Orientation Not on file Occupation Industry Job Start Date Job End Date Not on file Not on file Not on file Not on file Last Filed Vital Signs Vital Sign Reading Time Taken Comments Blood Pressure 125/80 03/10/2024 3:05 PM CDT Pulse 82 03/10/2024 3:05 PM CDT Temperature 36.1 C (97 F) 03/10/2024 12:26 PM CDT Respiratory Rate 18 03/10/2024 3:05 PM CDT Oxygen Saturation 98% 03/10/2024 3:05 PM CDT Inhaled Oxygen Concentration - - Weight 78.4 kg (172 lb 13.5 oz) 024 12:26 PM CDT Height 167.6 cm (5' 6 ) 03/10/2024 12:2 6 PM CDT Body Mass Index 27.9 03/10/2024 12:26 PM CDT Plan of Treatment Health Maintenance Due Date Last Done Comments Colorectal Cancer Screening Colonoscopy (10 Years) 1970 Annual Physical 1973 Pneumococcal Vaccine: Pediatrics (0 to 5 Years) and At-Risk Patients (6 to 64 Years) (1 of 2 - PCV) 1976 Hepatitis B Vaccines (1 of 3 - 19+ 3-dose series) 1989 Zoster Vaccines (1 of 2) 2020 COVID-19 Vaccine ( season) 2024 05/02/2021, 04/09/2021, 04/09/2021, Additional history exists Influenza Adult (#1) 2024 PHQ-2 (Physician [place]) 09/16/2024 Mammogram Screening 09/07/2025 09/07/2023, 03/29/2021, 04/25/2018 DTaP, Tdap and Td Vaccines (2 - Td or Tdap) 05/23/2032 05/23/2022 Hepatitis C Completed 09/29/2021, 09/16, 09/29/2021, Additional history exists Meningococcal B Vaccine Aged Out No l onger eligible based on patient's age to complete this topic Meningococcal Vaccine Aged Out No carlos olivier eligible based on patient's age to complete this topic RSV Immunizations Under 20 Months Aged Out No longer eligible based on patient's age to complete this topic Goals Goal Patient Goal Type Associated Problems Recent Progress Patient-Stated? Author Establish Options for Affordable Food Sources General No Nohelia Hobson, director investment banking Patient and family will have open conversation regarding patient goals and wishes for treatment General No Myrna Leger, JACLYN Medical Devices Implanted Type Area Technical Sourcing Recruiter Device Identifier Shelf Expiration Date Model / Serial / Lot Stimulator Lead-11/13/2019 Implanted:Qty: 1 on 11/13/2019 by Dileep Colorado MD Lead Implant Spine Thoracic [employer] [id number] / [id number] / Stimulator Lead-11/13/2019 Implanted:Qty: 1 on 11/13/2019 by Dileep Colorado MD Lead Implant Spine Thoracic [employer] [id number] / [id number] / Stent [employer] [place] 6fr X 24cm - [id number] Implanted:Qty: 1 on 09/04/2019 by Deep Sommers MD at [facility] Stent Right: Ureter [employer] 09/24/2023 [id number] / / [id number] Stimulator-2/2 04/2020 Implanted:Qty: 1 on 11/13/2019 by Dileep Colorado MD Stimulator Implant Abdomen [employer] [id number] / [id number] / Description:MR Conditional a t 1.5 T ONLY, under following conditions: Should be full body eligible (check with remote), stimulation needs to be turned off prior to scan, Max , Max slew rate 200 T/m/s, Max whole body JAMAL of 2 W/kg or less, Head JAMAL 3.2 W/kg or less, 30 minutes total active scan time in a 90 minute window. Prone or Supine only Stent [employer] [place] 6fr X 26cm - [id number] Implanted:Qty: 1 on 05/19/2019 by Deep Sommers MD at [facility] Left: Ureter [employer] 08/13/2023 [id number] / / [id number] Procedures Procedure Name Priority Date/Time Associated Diagnosis Comments MAGNESIUM Routine 11/07/2024 8:34 AM CEMENT GRINDING MILL OPERATOR Chronic kidney disease, unspecified RENAL FUNCTION PANEL Routine 11/07/2024 8:34 AM CEMENT GRINDING MILL OPERATOR Chronic kidney disease, unspecified ALBUMIN URINE RANDOM W/CREATININE Routine 11/07/2024 8:30 AM CEMENT GRINDING MILL OPERATOR Chronic kidney disease, unspecified URINALYSIS, AUTO, COMPLETE Routine 11/07/2024 8:30 AM CEMENT GRINDING MILL OPERATOR Chronic kidney disease, unspecified LIPID PANEL Routine 09/14/2024 8:12 AM CEMENT GRINDING MILL OPERATOR Encounter for screening for lipoid disorders MG SCREENING W KAITLYNN VERENICE DIGI Routine 09/07/2023 9:44 AM CEMENT GRINDING MILL OPERATOR Encounter for screening mammogram for malignant neoplasm of breast HEPATITIS C ANTIBODY Routine 12/02/2020 8:56 AM CDT Acid phosphatase elevated from Last 3 Months or Most Recently Relevant to Health Maintenance Results * (ABNORMAL) RENAL FUNCTION PANEL (11/07/2024 8:34 AM CEMENT GRINDING MILL OPERATOR) GLUCOSE 129(H) 70 - 99 MG/DL 11/07/2024 10:25 AM [facility] BUN 25(H) 7 - 18 MG/DL 11/07/2024 10:25 AM [facility] CREATININE S/P/B 1.18(H) 0.55 - 1.02 MG/DL 11/07/2024 10:25 AM [facility] SODIUM S/P/B 143 136 - 145 MMOL/L 11/07/2024 10:25 AM [facility] POTASSIUM S/P/B 3.8 3.5 - 5.1 MMOL/L 11/07/2024 10:25 AM [facility] CHLORIDE S/P/B 112 97 - 115 MMOL/L 11/07/2024 10:25 AM [facility] CO2 26.4 21 - 32 MMOL/L 11/07/2024 10:25 AM [facility] CALCIUM S/P/B 9.5 8.5 - 10.1 MG/DL 11/07/2024 10:25 AM [facility] ALBUMIN S/P/B 3.5 3.4 - 5.0 G/DL 11/07/2024 10:25 AM [facility] PHOSPHORUS 3.2 2.5 - 4.9 MG/DL 11/07/2024 10:25 AM CEMENT GRINDING MILL OPERATOR [facility] ANION GAP 4.6 2 - 10 MMOL/L 11/07/2024 10:25 AM [facility] BUN CREATININE RATIO 21.2 6 - 26 11/07/2024 10:25 AM [facility] GFR ESTIMATE 55(L) >90 ML/MIN/1.7 3 M2 11/07/2024 10:25 AM [facility] Comment: NOTE: eGFR is not calculated for patients <18 years of age or gender unknown. This is an estimated GFR calculation using the new CKD EPI creatinine equation without race and so does not require a correction factor for race. This estimated GFR should not be used for calculating drug doses. 11/07/2024 8:34 AM CEMENT GRINDING MILL OPERATOR us Daniel Chun MD LABORATORY Final Result Performing Organization Address City/[facility]/ZIP Co de Phone Number [facility] [address] [place] [id number], * MAGNESIUM (11/07/2024 8:34 AM CEMENT GRINDING MILL OPERATOR) MAGNESIUM 2.3 1.8 - 2.4 MG/DL 11/07/2024 10:25 AM [facility] 11/07/2024 8:34 AM CEMENT GRINDING MILL OPERATOR us Daniel Chun MD LABORATORY Final Result [facility] [address] [place] [address], [place] [phone] * (ABNORMAL) URINALYSIS, AUTO, COMPLETE (11/07/2024 8:30 AM CEMENT GRINDING MILL OPERATOR) SPECIMEN TYPE URINE CLEAN CATCH 11/07/2024 8:20 AM CEMENT GRINDING MILL OPERATOR [facility] COLOR (U) LIGHT YELLOW 11/07/2024 11:13 AM [facility] TRANSPARENCY CLEAR 11/07/2024 11:13 AM [facility] SPECIFIC GRAVITY (U) 1.015 1.001 - 1.030 11/07/2024 11:13 AM [facility] U PH 6.5 5.0 - 9.0 11/07/2024 11:13 AM [facility] LEUKOCYTES (U) 250(A) NEGATIVE 11/07/2024 11:13 AM [facility] NITRITES NEGATIVE NEGATIVE 11/07/2024 11:13 AM [facility] PROTEIN RANDOM (U) NEGATIVE <30 MG/DL 11/07/2024 11:13 AM [facility] GLUCOSE (U) NORMAL NORMAL MG/DL 11/07/2024 11:13 AM [facility] KETONES MG/DL (U) NEGATIVE NEGATIVE MG/DL 11/07/2024 11:13 AM [facility] UROBILINOGEN NORMAL NORMAL MG/DL 11/07/2024 11:13 AM [facility] BILIRUBIN (U) NEGATIVE NEGATIVE MG/DL 11/07/2024 11:13 AM [facility] BLOOD (U) NEGATIVE NEGATIVE 11/07/2024 11:13 AM [facility] MUCUS RARE /LPF 11/07/2024 11:13 AM [facility] WBC/HPF 3 <6 /HPF 11/07/2024 11:13 AM [facility] RBC/HPF 1 <6 /HPF 11/07/2024 11:13 AM [facility] SQUAMOUS EPITHELIALS RARE /HPF 11/07/2024 11:13 AM [facility] URINE SPECIMEN OBTAINED BY CLEAN CATCH PROCEDURE / Unknown 11/07/2024 8:30 AM CEMENT GRINDING MILL OPERATOR Daniel Chun MD URINE ORDERABLES Final Result [facility] [address] [place] [address], [place] [phone] * MICROALBUMIN CREAT RATIO, URINE RANDOM (11/07/2024 8:30 AM CEMENT GRINDING MILL OPERATOR) CREATININE (U) 69.8 28 - 217 MG/DL 11/07/2024 11:30 AM CEMENT GRINDING MILL OPERATOR [facility] MICROALBUMIN (U) 0.7 <2.0 mg/dL 11/07/19 11:30 AM CEMENT GRINDING MILL OPERATOR [facility] ALBUMIN/CREAT RATIO 9.8 <30 MG/G 11/07/2024 11:30 AM CEMENT GRINDING MILL OPERATOR [facility] URINE SPECIMEN / Unknown 11/07/2024 8:30 AM CEMENT GRINDING MILL OPERATOR Daniel Chun MD URINE ORDERABLES Final Result [facility] [address] [place] [address], [place] [phone] * (ABNORMAL) LIPID PANEL (09/14/2024 8:12 AM CEMENT GRINDING MILL OPERATOR) CHOLESTEROL 231(H) <200 MG/DL 09/14/2024 9:38 AM CEMENT GRINDING MILL OPERATOR [facility] TRIGLYCERIDES 246(H) <150 MG/DL 09/14/2024 9:38 AM CEMENT GRINDING MILL OPERATOR [facility] HDL 61 >40.0 MG/DL 09/14/2024 9:38 AM CEMENT GRINDING MILL OPERATOR [facility] LDL (CALCULATED) 121(H) <100 MG/DL 09/14/2024 9:38 AM CEMENT GRINDING MILL OPERATOR [facility] NON HDL CHOLESTEROL 170(H) <130 MG/DL 09/14/2024 9:38 AM [facility] CHOL/HDL RATIO 3.8 0.0 - 4.5 09/14/2024 9:38 AM [facility] VLDL CALCULATION 49 5 - 55 MG/DL 09/14/2024 9:38 AM [facility] LIPID INTERPRETATION 09/14/2024 9:38 AM [facility] Comment: [facility] CONCENSUS REPORT RECOMMENDATIONS: ADULT CHILD LOW RISK: CHOLESTEROL <200 <170 TRIGLYCERIDE <150 --- HDL >=60 --- LDL <100 <110 BORDERLINE: CHOLESTEROL 200-239 170-199 TRIGLYCERIDE 150-199 --- HDL 40-59 --- LDL 100-159 110-129 HIGH RISK: CHOLESTEROL >=240 >=200 TRIGLYCERIDE >=200 --- HDL <40 --- LDL >=160 >=130 09/14/2024 8:12 AM CEMENT GRINDING MILL OPERATOR Gulshan Macdonald MD LABORATORY Final Result [facility] [address] [place] [address], [place] [phone] * MG SCREENING W KAITLYNN VERENICE DIGI (09/07/2023 9:44 AM CEMENT GRINDING MILL OPERATOR) Anatomical Region Laterality Modality Breast Bilateral Mammography 09/10/2023 9:07 AM CEMENT GRINDING MILL OPERATOR Narrative 09/10/2023 9:08 AM CEMENT GRINDING MILL OPERATOR Examination: Screening bilateral mammogram Exam Date/Time: 09/07/2023 9:19 AM Clinical history: No current complaints. Comparison: 03/29/2021 Technique: Digital screening mammography of both breasts was performed. Breast tomosynthesis acquisitions were obtained and reviewed. This study was read with the assistance of a computer-aided detection system. Tissue density: There are scattered areas of fibroglandular density. Findings: No suspicious masses, malignant appearing calcifications, skin thickening or other abnormalities are present. No significant change from the prior exam. IMPRESSION: No suspicious mammographic findings. Recommendation: 1. Routine Screening, Bilateral Assessment: ACR BI-RADS 2 - BENIGN FINDING(S) Ordered By: PEBBLES BETANCOURT Interpreted By: Clayton Gan, 09/10/2023 9:07 AM Pebbles Betancourt [employer]USEUM SECURITY CHIEF MAMMO Final Result * HEPATITIS C ANTIBODY (12/02/2020 8:56 AM CDT) HEPATITIS C AB NON-REACTI VE NON-REACTI VE 12/02/2020 10:23 AM CDT [facility] 12/02/2020 8:56 AM CDT Orly Michaud MD LABORATORY Final Result Performing Organization Address City/State/[facility] Co de Phone Number [facility] [address] [place] [address], from Last 3 Months or Most Recently Relevant to Health Maintenance Insurance [facility] Advance Directives * Full Code (Latest Code Status on File) Date Activated Date Inactivated Comments 02/16/2021 10:51 AM 02/17/2021 3:51 PM * Full Code Date Activated Date Inactivated Comments 10/22/2020 8:31 PM 10/27/2020 2:19 PM * Full Code Date Activated Date Inactivated Comments 09/04/2019 2:26 PM 09/04/2019 6:29 PM * Full Code Date Activated Date Inactivated Comments 05/19/2019 2:12 PM 05/19/2019 5:14 PM * Full Code Date Activated Date Inactivated Comments 04/18/2018 6:17 PM 04/19/2018 2:44 PM Care Teams Production Finisher Relationship Specialty Start Date End Date Pebbles Betancourt NP [address] [facility] [address] [place] [address] PCP - General FAMILY PRACTICE 03/16/17 Lina Arboleda MD [facility] [place] [address] [place] Director Of Athletics CARDIOVASCULAR DISEASE 03/28/17 Orly Michaud MD [address] [facility] [address] [place] [address] Referring Physician GASTROENTEROLOGY 08/24/19
--- OUTSIDE RECORDS SUMMARY | 2024-11-19 16:02 | XMS_ITS | Encounter Summary ---
Author Organization [email or web address] Address [address] [place] [address] Care Team Providers Care Pecan Mallow Dipper Name Role Phone Charlie Mera MD Primary Care Provider Mary tapia Encounter Details Date Type Department Care Team (Latest Contact Info) Description 09/08/2004 Outpatient Historical HIS PATIENT IN A BED Gunner Alvarez MD [facility] [place] [address] [address] THRT BRIA LABOR-ANTEPART (Primary Dx) Social History Tobacco Use Types Packs/Day Years Used Date Smoking Tobacco: Never Assessed Comments Unknown Sex and Gender Information Value Date Recorded Sex Assigned at Not on file Legal Sex Female 4:21 AM MEMBER SERVICE SPECIALIST Gender Identity Not on file Sexual Orientation Not on file documented as of this encounter Plan of Treatment Not on file documented as of this encounter Visit Diagnoses Diagnosis Threatened premature labor, antepartum(644.03)- Primary Threatened premature labor, antepartum documented in this encounter Care Teams Pecan Mallow Dipper Relationship Specialty Start Date End Date Charlie Mera MD NO ADDRESS ON FILE PCP - General 09/19/05 documented as of this encounter
--- OUTSIDE RECORDS SUMMARY | 2024-11-19 16:02 | XMS_ITS | Encounter Summary ---
Author Organization [employer] Address [address] [place] [address] Care Team Providers Care Tree Specialist Name Role Phone Charlie Mera MD Primary Care Provider Mary le Encounter Details Date Type Department Care Team (Latest Contact Info) Description 07/20/2004 Outpatient Historical [facility], [address] Burak Ortiz MD NO ADDRESS ON FILE PREG STATE, INCIDENTAL (Primary Dx) Social History Tobacco Use Types Packs/Day Years Used Date Smoking Tobacco: Never Assessed Comments Unknown Sex and Gender Information Value Date Recorded Sex Assigned at Not on file Legal Sex Female 4:21 AM ANTHROPOLOGIST PHYSICAL Gender Identity Not on file Sexual Orientation Not on file documented as of this encounter Plan of Treatment Not on file documented as of this encounter Visit Diagnoses Diagnosis state, incidental- Primary documented in this encounter Care Teams Tree Specialist Relationship Specialty Start Date End Date Charlie Mera MD NO ADDRESS ON FILE PCP - General 09/19/05 documented as of this encounter
--- OUTSIDE RECORDS SUMMARY | 2024-11-19 16:02 | XMS_ITS | Encounter Summary ---
Author Organization [employer] Address [address] [place] [address] Care Team Providers Care Electronic Publications Specialist Name Role Phone Charlie Mera MD Primary Care Provider Unavailab le Encounter Details Date Type Department Care Team (Late st Contact Info) Description 05/30/2005 Outpatient Historical [facility] Maternal and Ground Floor [address] [place] [address] Сергей Carbajal MD [address] [place] [address] Social History Tobacco Use Types Packs/Day Years Used Date Smoking Tobacco: Never Assessed Comments Unknown Sex and Gender Information Value Date Recorded Sex Assigned at Not on file Legal Sex Female 4:21 AM TECHNICAL INTERN Gender Identity Not on file Sexual Orientation Not on file documented as of this encounter Plan of Treatment Not on file documented as of this encounter Visit Diagnoses Not on filedocumented in this encounter Care Teams Electronic Publications Specialist Relationship Specialty Start Date End Date Charlie Mera MD NO ADDRESS ON FILE PCP - General 09/19/05 documented as of this encounter
--- OUTSIDE RECORDS SUMMARY | 2024-11-19 16:02 | XMS_ITS | Encounter Summary ---
Author Organization [email or web address] Address [address] [place] [address] Care Team Providers Care Business Continuity Strategy Director Name Role Phone Charlie Mera MD Primary Care Provider Mary le Encounter Details Date Type Department Care Team (Late st Contact Info) Description 08/17/2004 Outpatient Historical [facility] Teodora Cano [address] [place] [address] SUPERVIS OTHER NORMAL PREG (Primary Dx) Social History Tobacco Use Types Packs/Day Years Used Date Smoking Tobacco: Never Assessed Comments Unknown Sex and Gender Information Value Date Recorded Sex Assigned at Not on file Legal Sex Female 4:21 AM CLIENT ADVISOR Gender Identity Not on file Sexual Orientation Not on file documented as of this encounter Plan of Treatment Not on file documented as of this encounter Visit Diagnoses Diagnosis Supervision of other normal - Primary documented in this encounter Care Teams Business Continuity Strategy Director Relationship Specialty Start Date End Date Charlie Mera MD NO ADDRESS ON FILE PCP - General 09/19/05 documented as of this encounter
--- OUTSIDE RECORDS SUMMARY | 2024-11-19 16:02 | XMS_ITS | Encounter Summary ---
Author Organization [facility] Address [address] [place] [address] Care Team Providers Care Asset Protection Manager Name Role Phone Charlie Mera MD Primary Care Provider Unavailab le Encounter Details Date Type Department Care Team (Late st Contact Info) Description 08/24/2004 Outpatient Historical [facility] [address] [place] [address] Jb Blanco MD [address] [id number] Social History Tobacco Use Types Packs/Day Years Used Date Smoking Tobacco: Never Assessed Comments Unknown Sex and Gender Information Value Date Recorded Sex Assigned at Not on file Legal Sex Female 4:21 AM EDITOR SOUND Gender Identity Not on file Sexual Orientation Not on file documented as of this encounter Plan of Treatment Not on file documented as of this encounter Visit Diagnoses Not on filedocumented in this encounter Care Teams Asset Protection Manager Relationship Specialty Start Date End Date Charlie Mera MD NO ADDRESS ON FILE PCP - General 09/19/05 documented as of this encounter
--- OUTSIDE RECORDS SUMMARY | 2024-11-19 16:02 | XMS_ITS | Encounter Summary ---
Author Organization [employer] Address [address] [place] [address] Care Team Providers Care Lean Consultant Name Role Phone Charlie Mear MD Primary Care Provider Mary tapia Encounter Details Date Type Department Care Team (Late st Contact Info) Description 07/21/2004 Outpatient Historical [facility] Jb Blanco MD 1400 [facility] [address] [address] [place] [address] PLACENTA PREVIA-ANTEPART (Primary Dx) Social History Tobacco Use Types Packs/Day Years Used Date Smoking Tobacco: Never Assessed Comments Unknown Sex and Gender Information Value Date Recorded Sex Assigned at Not on file Legal Sex Female 4:21 AM PRODUCT TEST ENGINEER Gender Identity Not on file Sexual Orientation Not on file documented as of this encounter Plan of Treatment Not on file documented as of this encounter Visit Diagnoses Diagnosis Placenta previa without hemorrhage, antepartum- Primary documented in this encounter Care Teams Lean Consultant Relationship Specialty Start Date End Date Charlie Mera MD NO ADDRESS ON FILE PCP - General 09/19/05 documented as of this encounter
--- OUTSIDE RECORDS SUMMARY | 2024-11-19 16:02 | XMS_ITS | Encounter Summary ---
Author Organization [employer] Address [address] [place] [address] Care Team Providers Care Ball Maker Name Role Phone Charlie Mera MD Primary Care Provider Unavailab le Encounter Details Date Type Department Care Team (Late st Contact Info) Description 09/15/2004 Outpatient Historical [facility] Maternal and Ground Floor [address] [place] [address] Сергей Carbajal MD [address] [place] [address] Social History Tobacco Use Types Packs/Day Years Used Date Smoking Tobacco: Never Assessed Comments Unknown Sex and Gender Information Value Date Recorded Sex Assigned at Not on file Legal Sex Female 4:21 AM HEAD MEN'S GOLF COACH Gender Identity Not on file Sexual Orientation Not on file documented as of this encounter Plan of Treatment Not on file documented as of this encounter Visit Diagnoses Not on filedocumented in this encounter Care Teams Ball Maker Relationship Specialty Start Date End Date Charlie Mera MD NO ADDRESS ON FILE PCP - General 09/19/05 documented as of this encounter
--- OUTSIDE RECORDS SUMMARY | 2024-11-19 16:02 | XMS_ITS | Clinical Summary ---
Author Organization [facility] Address [address] [place] [address] Care Team Providers Care Manager English Name Role Phone Unavailable Primary Care Provider Unavailabl e Social History Tobacco Use Types Packs/Day Years Used Date Smoking Tobacco: Never Assessed Comments Unknown Sex and Gender Information Value Date Recorded Sex Assigned at Not on file Legal Sex Female 9:02 PM PDT Gender Identity Not on file Sexual Orientation Not on file Plan of Treatment Not on file
--- OUTSIDE RECORDS SUMMARY | 2024-11-19 16:02 | XMS_ITS | Encounter Summary ---
Author Organization [employer] Address [address] [place] [address] Care Team Providers Care Wire Drawing Setter Name Role Phone Charlie Mera MD Primary Care Provider Mary tapia Encounter Details Date Type Department Care Team (Late st Contact Info) Description 11/06/2004 Outpatient Historical [facility] STRusty Esparza MD [address] [place] [address] Er, Authorized P NO ADDRESS ON FILE CALCULUS OF URETER (Primary Dx) Social History Tobacco Use Types Packs/Day Years Used Date Smoking Tobacco: Never Assessed Comments Unknown Sex and Gender Information Value Date Recorded Sex Assigned at Not on file Legal Sex Female 4:21 AM OB/GYN Gender Identity Not on file Sexual Orientation Not on file documented as of this encounter Plan of Treatment Not on file documented as of this encounter Procedures Procedure Name Priority Date/Time Associated Diagnosis Comments URINALYSIS W/REFLEX MICROSCOPIC Routine 11/06/2004 11:28 AM OB/GYN CBC WITH DIFFERENTIAL Routine 11/06/2004 11:26 AM OB/GYN CBC WITH DIFFERENTIAL Routine 11/06/2004 11:26 AM OB/GYN HCG QUANTITATIVE, BLOOD Routine 11/06/2004 11:26 AM OB/GYN documented in this encounter Results * (ABNORMAL) URINALYSIS (11/06/2004 11:28 AM OB/GYN) COLOR UA Yellow INTERFACE SYSTEM CLARITY UA Slt. Cloudy(A) Clear INTERFACE SYSTEM SPECIFIC GRAVITY UA 1.015 1.001 - 1.035 INTERFACE SYSTEM PH UA 5.5 5.0 - 8.0 INTERFACE SYSTEM LEUKOCYTE ESTERASE UA 1+(A) Negative INTERFACE SYSTEM NITRITE UA Negative Negative INTERFACE SYSTEM PROTEIN UA Negative Negative INTERFACE SYSTEM GLUCOSE UA Negative Negative INTERFACE SYSTEM KETONES UA Negative Negative INTERFACE SYSTEM UROBILINOGEN UA <1 <1 EU INTE RFACE SYSTEM BILIRUBIN UA Negative Negative INTERFA CE SYSTEM BLOOD UA Negative Negative INTERFACE SYSTEM WBC UA 9(H) 0 - 5 /HPF INTERFACE SYSTEM RBC UA 2 0 - 4 /HPF INTERFACE SYSTEM BACTERIA UA 1+(A) None Seen /HPF INTERFACE SYSTEM EPITHELIAL CELLS, URINE 5-10 /HPF INTERFACE SYSTEM TRANSITIONAL EPI 0-2 /HPF INT ERFACE SYSTEM 11/06/2004 11:2 8 AM OB/GYN us Rusty Norman MD URINE ORDERABLES Final Resul t INTERFACE SYSTEM Refer to clinic/hospital department * HCG QUANTITATIVE, BLOOD (11/06/2004 11:26 AM OB/GYN) HCG QUANT, BLOOD <5 0 - 5 mIU/mL INTERFACE SYSTEM Comment: Result of 5 - 25 mIU/mL is indeterminant for , repeat of test recommemded in 48 hours. Reference Range: Gestational Age: 3 Weeks 5.8 - 71.2 mIU/mL 4 Weeks 9.5 - 750 mIU/mL 5 Weeks 217 - 7138 mIU/mL 6 Weeks 158 - 31,795 mIU/mL 7 Weeks 3697 - 163,563 mIU/mL 8 Weeks 32,065 - 149,571 mIU/mL 9 Weeks 63,803 - 151,410 mIU/mL 10 Weeks 46,509 - 186,977 mIU/mL 12 Weeks 27,832 - 210,612 mIU/mL 14 Weeks 13,950 - 62,530 mIU/mL 15 Weeks 12,039 - 70,971 mIU/mL 16 Weeks 9040 - 56,451 mIU/mL 17 Weeks 8175 - 55,868 mIU/mL 18 Weeks 8099 - 58,176 mIU/mL Heterophile antibodies and other interfering substances in the serum of some patients may cause a false-positive result in this assay. Before making a diagnosis of malignancy or ectopic ,the result of thi s test should be confirmed with a urine HCG test and correlated with other clinical evidence. Results called to Sussy at 11/06/2004 1:04 PM and read back verified. 11/06/2004 11:2 6 AM OB/GYN Rusty Norman MD CHEMISTRY ORDERABLES Final R esult Performing Organization Address [facility] de Phone Number INTERFACE SYSTEM Refer to clinic/hospital department * CBC WITH DIFFERENTIAL (11/06/2004 11:26 AM OB/GYN) NEUTROPHILS 67 45 - 70 % INTERFAC E SYSTEM LYMPHOCYTES 24 16 - 45 % INTERFAC E SYSTEM MONOCYTES 6 3 - 13 % INTERFACE SYSTEM EOSINOPHILS 2 0 - 7 % INTERFAC E SYSTEM BASOPHILS 1 0 - 2 % INTERFACE SYSTEM NEUTROPHIL ABSOLUTE 4.47 1.90 - 7.00 K/uL INTERFACE SYSTEM LYMPHOCYTE ABSOLUTE 1.59 0.70 - 4.50 K/uL INTERFACE SYSTEM MONOCYTE ABSOLUTE 0.39 0.10 - 1.30 K/uL INTERFACE SYSTEM EOSINOPHIL ABSOLUTE 0.16 0.00 - 0.70 K/uL INTERFACE SYSTEM BASOPHILS ABSOLUTE 0.03 0.00 - 0.20 K/uL INTERFACE SYSTEM 11/06/2004 11:2 6 AM OB/GYN Rusty Norman MD HEMATOLOGY ORDERABLES Final Result Performing Organization Address [facility] Phone Number INTERFACE SYSTEM Refer to clinic/hospital department * CBC WITH DIFFERENTIAL (11/06/2004 11:26 AM OB/GYN) WBC 6.6 4.0 - 9.8 K/uL INTERFACE SYSTEM RBC 4.62 3.90 - 4.90 M/uL INTERFACE SYSTEM HEMOGLOBIN 12.9 11.8 - 14.8 g/dL INTERFACE SYSTEM HEMATOCRIT 38.2 35.5 - 44.0 % INTERFACE SYSTEM MCV 82.7 82.0 - 99.0 fL INTERFACE SYSTEM MCH 27.9 27.2 - 32.6 pg INTERFACE SYSTEM MCHC 33.8 31.5 - 35.5 % INTERFACE SYSTEM RDW 13.6 11.5 - 14.5 % INTERFACE SYSTEM RDW-STDEV 40.8 37.1 - 48.7 fL INTERFACE SYSTEM PLATELETS 188 140 - 350 K/uL INTERFACE SYSTEM MPV 11.1 9.3 - 12.4 fL INTERFACE SYSTEM 11/06/2004 11:2 6 AM OB/GYN us Rusty Norman MD HEMATOLOGY ORDERABLES Final Result INTERFACE SYSTEM Refer to clinic/hospital department documented in this encounter Visit Diagnoses Diagnosis Calculus of ureter- Primary documented in this encounter Care Teams Wire Drawing Setter Relationship Specialty Start Date End Date Charlie Mera MD NO ADDRESS ON FILE PCP - General 09/19/05 documented as of this encounter
--- OUTSIDE RECORDS SUMMARY | 2024-11-19 16:02 | XMS_ITS | Encounter Summary ---
Author Organization [facility] Address [address] [place] [address] Care Team Providers Care And Drying Supervisor Cooking Casing Name Role Phone Unavailable Primary Care Provider Unavailabl e Prior Encounters Date Type Department Care Team Description 10/05/2019 Converted CPS Chart Documents [facility] [address] [place] [address] <No scans attached> 10/05/2019 Converted 13x Documents [facility] [address] [place] [address] <No scans attached> Plan of Treatment Not on file Procedures Procedure Name Priority Date/Time Associated Diagnosis Comments 31 LIMITED ORAL EVALUATION - PROBLEM FOCUSED Routine 06/22/2020 2:00 AM CDT PANORAMIC RADIOGRAPHIC IMAGE Routine 06/22/2020 2:00 AM CDT Visit Diagnoses Not on file
--- OUTSIDE RECORDS SUMMARY | 2024-11-19 16:02 | XMS_ITS | Encounter Summary ---
Author Organization [facility] Address [address] [place] [address] Care Team Providers Care Instrument And Control Technician Name Role Phone Charlie Mera MD Primary Care Provider Unavailab le Encounter Details Date Type Department Care Team (Late st Contact Info) Description 07/20/2004 Outpatient Historical [facility] [address] [place] [address] Burak Ortiz MD NO ADDRESS ON FILE Social History Tobacco Use Types Packs/Day Years Used Date Smoking Tobacco: Never Assessed Comments Unknown Sex and Gender Information Value Date Recorded Sex Assigned at Not on file Legal Sex Female 4:21 AM HAND WOOD SANDER Gender Identity Not on file Sexual Orientation Not on file documented as of this encounter Plan of Treatment Not on file documented as of this encounter Visit Diagnoses Not on filedocumented in this encounter Care Teams Instrument And Control Technician Relationship Specialty Start Date End Date Charlie Mera MD NO ADDRESS ON FILE PCP - General 09/19/05 documented as of this encounter
--- OUTSIDE RECORDS SUMMARY | 2024-11-19 16:02 | XMS_ITS | Encounter Summary ---
Author Organization [facility] Address [address] [place] [address] Care Team Providers Care Guidance Secretary Name Role Phone Cahrlie Mera MD Primary Care Provider Unavailab le Encounter Details Date Type Department Care Team (Late st Contact Info) Description 08/31/2004 Outpatient Historical [facility] Maternal and Ground Floor [address] [place] [address] Gwendolyn Mcdonnell MD [address] [place] [address] Social History Tobacco Use Types Packs/Day Years Used Date Smoking Tobacco: Never Assessed Comments Unknown Sex and Gender Information Value Date Recorded Sex Assigned at Not on file Legal Sex Female 4:21 AM FINAL FINISHER Gender Identity Not on file Sexual Orientation Not on file documented as of this encounter Plan of Treatment Not on file documented as of this encounter Visit Diagnoses Not on filedocumented in this encounter Care Teams Guidance Secretary Relationship Specialty Start Date End Date Charlie Mera MD NO ADDRESS ON FILE PCP - General 09/19/05 documented as of this encounter
--- OUTSIDE RECORDS SUMMARY | 2024-11-19 16:02 | XMS_ITS | Encounter Summary ---
Author Organization [facility] Address [address] [place] [address] Care Team Providers Care Vehicle Washer Name Role Phone Charlie Mera MD Primary Care Provider Unavail le Encounter Details Date Type Department Care Team (Late st Contact Info) Description 08/17/2004 Outpatient Historical [facility] [address] [place] [address] Teodora Cano [address] [place], [place] [id number] Social History Tobacco Use Types Packs/Day Years Used Date Smoking Tobacco: Never Assessed Comments Unknown Sex and Gender Information Value Date Recorded Sex Assigned at Not on file Legal Sex Female 4:21 AM APPLICATIONS SPECIALIST Gender Identity Not on file Sexual Orientation Not on file documented as of this encounter Plan of Treatment Not on file documented as of this encounter Visit Diagnoses Not on filedocumented in this encounter Care Teams Vehicle Washer Relationship Specialty Start Date End Date Charlie Mera MD NO ADDRESS ON FILE PCP - General 09/19/05 documented as of this encounter
--- OUTSIDE RECORDS SUMMARY | 2024-11-19 16:02 | XMS_ITS | Encounter Summary ---
Author Organization [facility] Address [address] [place] [address] Care Team Providers Care Cloud Consultant Name Role Phone Charlie Mera MD Primary Care Provider Unavailab le Encounter Details Date Type Department Care Team (Latest Contact Info) Description 08/03/2004 Outpatient Historical [facility] BLDG Conversion, History ELEV BL PRES W/O HYPERTN (Primary Dx) Social History Tobacco Use Types Packs/Day Years Used Date Smoking Tobacco: Never Assessed Comments Unknown Sex and Gender Information Value Date Recorded Sex Assigned at Not on file Legal Sex Female 4:21 AM SOLAR CONSULTANT Gender Identity Not on file Sexual Orientation Not on file documented as of this encounter Plan of Treatment Not on file documented as of this encounter Visit Diagnoses Diagnosis Elevated blood pressure reading without diagnosis of hypertension- Primary documented in this encounter Care Teams Cloud Consultant Relationship Specialty Start Date End Date Charlie Mera MD NO ADDRESS ON FILE PCP - General 09/19/05 documented as of this encounter
--- OUTSIDE RECORDS SUMMARY | 2024-11-19 16:02 | XMS_ITS | Encounter Summary ---
Author Organization [employer] [facility] Address [address] [place] [address] Care Team Providers Care Insurance Follow Up Specialist Name Role Phone Charlie Mera MD Primary Care Provider Mary tapia Encounter Details Date Type Department Care Team (Latest Contact Info) Description 07/22/2004 Outpatient Historical [facility] [place] Ortiz, Burak Paredes MD NO ADDRESS ON FILE PREG STATE, INCIDENTAL (Primary Dx) Social History Tobacco Use Types Packs/Day Years Used Date Smoking Tobacco: Never Assessed Comments Unknown Sex and Gender Information Value Date Recorded Sex Assigned at Not on file Legal Sex Female 4:21 AM LOG CLERK Gender Identity Not on file Sexual Orientation Not on file documented as of this encounter Plan of Treatment Not on file documented as of this encounter Visit Diagnoses Diagnosis state, incidental- Primary documented in this encounter Care Teams Insurance Follow Up Specialist Relationship Specialty Start Date End Date Charlie Mera MD NO ADDRESS ON FILE PCP - General 09/19/05 documented as of this encounter
--- OUTSIDE RECORDS SUMMARY | 2024-11-19 16:02 | XMS_ITS | Encounter Summary ---
Author Organization [facility] Address [address] [place] [address] Care Team Providers Care Manufacturing Business Analyst Name Role Phone Charlie Mera MD Primary Care Provider Unavailab le Encounter Details Date Type Department Care Team (Late st Contact Info) Description 06/05/2005 Outpatient Historical [facility] Maternal and Ground Floor [address] [place] [address] Pratik Asencio DO [address] [facility] [address] [place], [place] [id number] Social History Tobacco Use Types Packs/Day Years Used Date Smoking Tobacco: Never Assessed Comments Unknown Sex and Gender Information Value Date Recorded Sex Assigned at Not on file Legal Sex Female 4:21 AM SENIOR SQL DBA Gender Identity Not on file Sexual Orientation Not on file documented as of this encounter Plan of Treatment Not on file documented as of this encounter Visit Diagnoses Not on filedocumented in this encounter Care Teams Manufacturing Business Analyst Relationship Specialty Start Date End Date Charlie Mera MD NO ADDRESS ON FILE PCP - General 09/19/05 documented as of this encounter
--- OUTSIDE RECORDS SUMMARY | 2024-11-19 16:02 | XMS_ITS | Encounter Summary ---
Author Organization [facility] Address [address] [place] [address] Care Team Providers Care Machinist Wood Name Role Phone Charlie Mera MD Primary Care Provider Unavailab le Encounter Details Date Type Department Care Team (Late st Contact Info) Description 07/21/2004 Outpatient Historical [facility] Maternal and Ground Floor [address] [place] [address] Elie Kasper MD NO ADDRESS ON FILE Social History Tobacco Use Types Packs/Day Years Used Date Smoking Tobacco: Never Assessed Comments Unknown Sex and Gender Information Value Date Recorded Sex Assigned at Not on file Legal Sex Female 4:21 AM OWNER/PHOTOGRAPHER Gender Identity Not on file Sexual Orientation Not on file documented as of this encounter Plan of Treatment Not on file documented as of this encounter Visit Diagnoses Not on filedocumented in this encounter Care Teams Machinist Wood Relationship Specialty Start Date End Date Charlie Mera MD NO ADDRESS ON FILE PCP - General 09/19/05 documented as of this encounter
--- OUTSIDE RECORDS SUMMARY | 2024-11-19 16:02 | XMS_ITS | Encounter Summary ---
Author Organization [employer] Address [address] [place] [address] Care Team Providers Care Coffee Maker Name Role Phone Charlie Mera MD Primary Care Provider Mary le Encounter Details Date Type Department Care Team (Late st Contact Info) Description 08/31/2004 Outpatient Historical [facility] Jb Blanco MD [address] [facility] [address] [address] [place] [id number] SUPERVIS OTHER NORMAL PREG (Primary Dx) Social History Tobacco Use Types Packs/Day Years Used Date Smoking Tobacco: Never Assessed Comments Unknown Sex and Gender Information Value Date Recorded Sex Assigned at Not on file Legal Sex Female 4:21 AM BOTTLING ATTENDANT Gender Identity Not on file Sexual Orientation Not on file documented as of this encounter Plan of Treatment Not on file documented as of this encounter Visit Diagnoses Diagnosis Supervision of other normal - Primary documented in this encounter Care Teams Coffee Maker Relationship Specialty Start Date End Date Charlie Mera MD NO ADDRESS ON FILE PCP - General 09/19/05 documented as of this encounter
--- OUTSIDE RECORDS SUMMARY | 2024-11-19 16:02 | XMS_ITS | Encounter Summary ---
Author Organization [employer] Address [address] [place] [address] Care Team Providers Care Shake Table Operator Name Role Phone Charlie Mrea MD Primary Care Provider Mary le Encounter Details Date Type Department Care Team (Late st Contact Info) Description 08/22/2004 [facility]patient Historical [facility] [address] [facility] [address] [address] [place] [phone] SCREENING NEC (Primary Dx) Social History Tobacco Use Types Packs/Day Years Used Date Smoking Tobacco: Never Assessed Comments Unknown Sex and Gender Information Value Date Recorded Sex Assigned at Not on file Legal Sex Female 4:21 AM PROJECT MANAGEMENT CONSULTANT Gender Identity Not on file Sexual Orientation Not on file documented as of this encounter Plan of Treatment Not on file documented as of this encounter Visit Diagnoses Diagnosis Other screening- Primary Other specified screening documented in this encounter Care Teams Shake Table Operator Relationship Specialty Start Date End Date Charlie Mera MD NO ADDRESS ON FILE PCP - General 09/19/05 documented as of this encounter
--- OUTSIDE RECORDS SUMMARY | 2024-11-19 16:02 | XMS_ITS | Encounter Summary ---
Author Organization [employer] Address [address] [place] [address] Care Team Providers Care Education Administrative Assistant Name Role Phone Charlie Mera MD Primary Care Provider Unavailab le Encounter Details Date Type Department Care Team (Late st Contact Info) Description 09/14/2004 Outpatient Historical [facility] Maternal and Ground [address] [place] [address] Elie Kasper MD NO ADDRESS ON FILE Social History Tobacco Use Types Packs/Day Years Used Date Smoking Tobacco: Never Assessed Comments Unknown Sex and Gender Information Value Date Recorded Sex Assigned at Not on file Legal Sex Female 4:21 AM SUPERVISOR LIME Gender Identity Not on file Sexual Orientation Not on file documented as of this encounter Plan of Treatment Not on file documented as of this encounter Visit Diagnoses Not on filedocumented in this encounter Care Teams Education Administrative Assistant Relationship Specialty Start Date End Date Charlie Mera MD NO ADDRESS ON FILE PCP - General 09/19/05 documented as of this encounter
--- OUTSIDE RECORDS SUMMARY | 2024-11-19 16:02 | XMS_ITS | Encounter Summary ---
Author Organization [employer] Address [address] [place] [address] Care Team Providers Care Truck Bench Mechanic Name Role Phone Charlie Mera MD Primary Care Provider Mary tapia Encounter Details Date Type Department Care Team (Latest Contact Info) Description 07/25/2004 Inpatient Historical [facility] PATIENT IN A BED Elie Kasper MD NO ADDRESS ON FILE RENAL DIS NOS-ANTEPARTUM (Primary Dx) Social History Tobacco Use Types Packs/Day Years Used Date Smoking Tobacco: Never Assessed Comments Unknown Sex and Gender Information Value Date Recorded Sex Assigned at Not on file Legal Sex Female 4:21 AM CELL INSPECTOR Gender Identity Not on file Sexual Orientation Not on file documented as of this encounter Plan of Treatment Not on file documented as of this encounter Visit Diagnoses Diagnosis 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
--- OUTSIDE RECORDS SUMMARY | 2024-11-19 16:02 | XMS_ITS | Encounter Summary ---
[facility] Organization [facility] Address [address] [place] [address] Care Team Providers Care Special Forces Engineer Sergeant Name Role Phone Charlie Mera MD Primary Care Provider Unavailab le Encounter Details Date Type Department Care Team (Late st Contact Info) Description 06/12/2005 Outpatient Historical [facility] Maternal and Ground Floor [address] [place] [address] Pratik Asencio DO [address] [facility] [place], [place] [id number] Social History Tobacco Use Types Packs/Day Years Used Date Smoking Tobacco: Never Assessed Comments Unknown Sex and Gender Information Value Date Recorded Sex Assigned at Not on file Legal Sex Female 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
--- OUTSIDE RECORDS SUMMARY | 2024-11-19 16:02 | XMS_ITS | Encounter Summary ---
Author Organization [facility] Address [address] [place] [address] Care Team Providers Care Hydrogenation Operator Name Role Phone Charlei Mera MD Primary Care Provider Unavailab le Encounter Details Date Type Department Care Team (Late st Contact Info) Description 09/17/2004 Outpatient Historical 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
--- OUTSIDE RECORDS SUMMARY | 2024-11-19 16:02 | XMS_ITS | Encounter Summary ---
Author Organization [employer] Address 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
--- OUTSIDE RECORDS SUMMARY | 2024-11-19 16:02 | XMS_ITS | Encounter Summary ---
Author Organization [employer] Address [address] [place] [address] Care Team Providers Care Mechanical Estimator Name Role Phone Charlie Mera MD Primary Care Provider Mary tapia Encounter Details Date Type Department Care Team (Latest Contact Info) Description 05/30/2005 Outpatient Historical [facility] Pratik Asencio, [address] [facility] [address] [address] PREG COMPL NEC-ANTEPART (Primary Dx) Social History Tobacco Use Types Packs/Day Years Used Date Smoking Tobacco: Never Assessed Comments Unknown Sex and Gender Information Value Date Recorded Sex Assigned at Not on file Legal Sex Female 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
--- OUTSIDE RECORDS SUMMARY | 2024-11-19 16:02 | XMS_ITS | Encounter Summary ---
Author Organization [employer] [facility] Address [address] [place] [address] Care Team Providers Care Shell Press Operator Name Role Phone Charlie Mera MD Primary Care Provider Mary le Encounter Details Date Type Department Care Team (Late st Contact Info) Description 08/24/2004 Outpatient Historical [facility] Teodora Molina [address] [place] [address] PREG STATE, INCIDENTAL (Primary Dx) Social History Tobacco Use Types Packs/Day Years Used Date Smoking Tobacco: Never Assessed Comments Unknown Sex and Gender Information Value Date Recorded Sex Assigned at Not on file Legal Sex Female 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
--- OUTSIDE RECORDS SUMMARY | 2024-11-19 16:02 | XMS_ITS | Encounter Summary ---
Author Organization [employer] Address [address] [place] [address] Care Team Providers Care Care Specialist Name Role Phone Charlie Mera MD Primary Care Provider Mary tapia Encounter Details Date Type Department Care Team (Latest Contact Info) Description 09/17/2004 Inpatient Historical [facility] PATIENT IN A BED Gunner Alvarez MD [address] [address] COMPLIC LABOR NEC-DELIVERED (Primary Dx) Social History Tobacco Use Types Packs/Day Years Used Date Smoking Tobacco: Never Assessed Comments Unknown Sex and Gender Information Value Date Recorded Sex Assigned at Not on file Legal Sex Female 4:21 AM GREEN MEAT PACKER Gender Identity Not on file Sexual Orientation Not on file documented as of this encounter Plan of Treatment Not on file documented as of this encounter Procedures Procedure Name Priority Date/Time Associated Diagnosis Comments HEMOGLOBIN AND HEMATOCRIT Routine 09/18/2004 8:04 AM GREEN MEAT PACKER documented in this encounter Results * (ABNORMAL) HEMOGLOBIN AND HEMATOCRIT (09/18/2004 8:04 AM GREEN MEAT PACKER) HEMOGLOBIN 9.4(L) 11.8 - 14.8 g/dL INTERFACE SYSTEM HEMATOCRIT 27.9(L) 35.5 - 44.0 % INTERFACE SYSTEM 09/18/2004 8:04 AM GREEN MEAT PACKER us Gunner Alvarez MD HEMATOLOGY ORDERABLES Final R esult INTERFACE SYSTEM Refer to clinic/hospital department documented in this encounter Visit Diagnoses Diagnosis Other specified indication for care or intervention related to labor and delivery, delivered- Primary documented in this encounter Care Teams Care Specialist Relationship Specialty Start Date End Date Charlie Mera MD NO ADDRESS ON FILE PCP - General 09/19/05 documented as of this encounter
--- OUTSIDE RECORDS SUMMARY | 2024-11-19 16:02 | XMS_ITS | Data Portability ---
Author Organization DEEPTHI SARASteve HenaoAitkin Brigida Address [address] [facility] [place] [address] Care Team Providers Care Technical Services Manager Name Role Phone PEBBLES SALMERON Primary Care Provider Clinton OSUNA [facility] MEGAN ROJAS Presentation Team Member Assessment Encounter Date Assessment Date Assessment LastModified by Organization Details LastModified Time 06/17/2024 06/17/2024 53-year-old female who is planning to have back surgery had 1 episode of chest pain which lasted for 45 minutes. EKG showing possible old inferior myocardial infarction and she has anterior T-wave inversion suggestive of ischemia. I recommended her to have a Lexiscan Myoview to evaluate cardiovascular status. His stress test is negative she has acceptable risk for cardiovascular events. Lipid screen, I will check a fasting lipid profile. I will see her again in 6 weeks. praveen Not available 06/17/2024 16:17:40 08/17/2024 08/17/2024 53-year-old female who is planning to have back surgery had 1 episode of chest pain which lasted for 45 minutes. EKG showing possible old inferior myocardial infarction and she has anterior T-wave inversion suggestive of ischemia. I recommended her to have a Lexiscan Myoview to evaluate cardiovascular status. His stress test is negative she has acceptable risk for cardiovascular events. Lipid screen, I will check a fasting lipid profile. I will see her again in 6 weeks. August 17, 2024: Abnormal stress test, anterior wall reversible perfusion defects suggestive of myocardial ischemia. I discussed with her recommended her to have coronary angiography for further evaluation I explained her risks and benefits of procedure. There is a risk of infection, bleeding, damage to blood vessels, stroke, kidney failure and sudden . These risks 3in 1000-3 in 164[address]. She is agreeable to proceed with procedure. I communicated with Dr. Gutierrez about coronary angiography. Lipid screen , I will check a fasting lipid profile before follow-up. sabdulaziz Not available 08/17/2024 16:21:07 09/15/2024 09/15/2024 53-year-old female who is planning to have back surgery had 1 episode of chest pain which lasted for 45 minutes. EKG showing possible old inferior myocardial infarction and she has anterior T-wave inversion suggestive of ischemia. I recommended her to have a Lexiscan Myoview to evaluate cardiovascular status. His stress test is negative she has acceptable risk for cardiovascular events. Lipid screen, I will check a fasting lipid profile. I will see her again in 6 weeks. August 17, 2024: Abnormal stress test, anterior wall reversible perfusion defects suggestive of myocardial ischemia. I discussed with her recommended her to have coronary angiography for further evaluation I explained her risks and benefits of procedure. There is a risk of infection, bleeding, damage to blood vessels, stroke, kidney failure and sudden . These risks 3in 1000-3 in 166[address]. She is agreeable to proceed with procedure. I communicated with Dr. Gutierrez about coronary angiography. Lipid screen , I will check a fasting lipid profile before follow-up. September 15, 2024: Preop evaluation, she has acceptable risk for cardiovascular events perioperatively. Abnormal stress test, coronary angiography reveals no evidence of coronary artery disease. Mildly elevated lipids . I discussed and advised her to modify her diet to lower LDL. History of peripheral edema , currently her she has no evidence of peripheral edema I recommended her to wean her off of Lasix while she is weaning off of Lasix wean her also off of potassium. I will see her again if needed. sabdulaziz Not available 09/15/2024 10:26:45 Plan of Treatment Reminders Order Date Submit Date Provider Last Modified By Organization Details Last Modified Time Details Appointments ANY 30 2024 08:15A SWATI Chan Not available Not available Not available Lab lipid panel, serum 2023 024 hardeep [facility], [address] [facility], [address], [place], [address], 09/07/2024 07:51:14 lipid panel, serum 2023 024 [facility] [address] [place], [address], 07/08/2024 07:54:18 Referral cardiolo gist referral - needs surgery clearanc e/stress test 2023 024 [facility] Cardiology [facility]3], [address] [facility], [address], [place], [address], 09/17/2024 10:37:35 Procedures lexiscan cardioli te stress test (PROC) 2023 024 [facility] Nuclear Medicine, [address], [place], [address], 10/29/2024 14:36:55 Surgeries left heart catheter ization (SURG) 2023 024 [facility] Luis Schulte Shpigel, [address] [facility], [facility] [address], [place], [address], 08/25/2024 08:12:39 Imaging None recorded . Medication Orders fluticas one propiona te 50 mcg/actu ation nasal spray,pan spension 2022 023 [id number], [address], [place], [id number], 06/05/2024 13:22:06 Patient TargetsNo targets recorded. Patient Instructions Encounter Date Encounter Id Patient Instructions Last Modified By Organization Details Last Modified Time 07/31/2023 [id number] A healthy lifestyle: care instructions [facility] Not available 07/31/2023 15:21:29 06/04/2024 [id number] A healthy lifestyle: [facility] Not available 06/04/2024 22:51:45 Reason for Referral 411 Directory Assistance Operator Referral for El ectrocardiogram abnormal needs surgery clearance/stress test Referring Physician: Pebbles Salmeron, Tax Compliance Agent, Encounter Date: 06/04/2024 Results Created Date Observation Date Name Description Value Unit Range Abnormal Flag Note LastModifiedBy Organization Detail LastModifiedTime 09/14/20 24 09/14/2024 LIPID PANEL cholesterol 231 mg/dL <[address] [facility] (Lab) [address], [place], [address], 09/14/2024 10:38:13 09/14/20 24 09/14/2024 LIPID PANEL triglyceride 246 mg/dL <[address] [facility] [address], [place], [address], 09/14/2024 10:38:13 09/14/20 24 09/14/2024 LIPID PANEL HDL cholesterol 61 mg/dL >40.[address] [facility] [address], [place], [address], 09/14/2024 10:38:13 09/14/20 24 09/14/2024 LIPID PANEL LDL calculated 121 mg/dL <[address] [facility]Lab[facility] [address], [place], [address], 09/14/2024 10:38:13 09/14/20 24 09/14/2024 LIPID PANEL non HDL cholesterol 170 mg/dL <[address] [facility] (Lab) [address], [place], [address], 09/14/2024 10:38:13 09/14/20 24 09/14/2024 LIPID PANEL chol/HDL ratio 3.8 0.0-4. 5 Not Available [facility] [address], [place], [address], 09/14/2024 10:38:13 09/14/20 24 09/14/2024 LIPID PANEL VLDL 49 mg/dL 5-55 Not Available [facility] (Lab) [address], [place], [address], 09/14/2024 10:38:13 09/14/20 24 09/14/2024 LIPID PANEL interpretati on NIH LINDY NSUS REPOR T RECOM MENDA TIONS : ADULT CHILD LOW RISK: BERLIN STERO L <200 <170 TRIGL YCERI DE <150 --- HDL >=60 --- LDL <100 <110 BORDE RLINE : BERLIN STERO L 200-2 39 170-1 99 TRIGL YCERI DE 150-1 99 --- HDL 40-59 --- LDL 100-1 59 110-1 29 HIGH RISK: BERLIN STERO L >=240 >=200 TRIGL YCERI DE >=200 --- HDL <40 --- LDL >=160 >=130 Not Available [facility] (Lab) [address], [place], [address], 09/14/2024 10:38:13 09/14/20 24 09/14/2024 Lipid 1996 panel - Serum or Plasm a cholesterol [mass/volume ] in serum or plasma 231 text: <200 mg/dL high BERLIN STERO L 231 (H) <200 MG/DL 09/14 9:38 AM PRECISION FARMING COORDINATOR [facility] Not Available Not Available 10/29/2024 14:41:48 09/14/20 24 09/14/2024 Lipid 1996 panel - Serum or Plasm a triglyceride [mass/volume ] in serum or plasma 246 text: <150 mg/dL high TRIGL YCERI RAMANA 246 (H) <150 MG/DL 09/14 9:38 AM PRECISION FARMING COORDINATOR [facility] Not Available Not Available 10/29/2024 14:41:48 09/14/20 24 09/14/2024 Lipid 1996 panel - Serum or Plasm a cholesterol in HDL [mass/volume ] in serum or plasma 61 text: >40.0 mg/dL HDL 61 >40.0 MG/DL 09/14 9:38 AM [facility] Not Available Not Available 10/29/2024 14:41:48 09/14/20 24 09/14/2024 Lipid 1996 panel - Serum or Plasm a cholesterol in LDL [mass/volume ] in serum or plasma by calculation 121 text: <100 mg/dL high LDL (CALC ULATE D) 121 (H) <100 MG/DL 09/14 9:38 AM [facility] Not Available Not Available 10/29/2024 14:41:48 09/14/20 24 09/14/2024 Lipid 1996 panel - Serum or Plasm a cholesterol non HDL [mass/volume ] in serum or plasma 170 text: <130 mg/dL high NON HDL BERLIN STERO L 170 (H) <130 MG/DL 09/14 9:38 AM [facility] Not Available Not Available 10/29/2024 14:41:48 09/14/20 24 09/14/2024 Lipid 1996 panel - Serum or Plasm a cholesterol. total/choles terol in HDL [mass ratio] in serum or plasma 3.8 low: 0high: 4.5 CHOL/ HDL RATIO 3.8 0.0 - 4.5 09/14 9:38 AM [facility] Not Available Not Available 10/29/2024 14:41:48 09/14/20 24 09/14/2024 Lipid 1996 panel - Serum or Plasm a cholesterol in VLDL [mass/volume ] in serum or plasma by calculation 49 text: 5 - 55 mg/dL VLDL CALCU LATIO N 49 5 - 55 MG/DL 09/14 9:38 AM [facility] Not Available Not Available 10/29/2024 14:41:48 09/14/20 24 09/14/2024 Lipid 1996 panel - Serum or Plasm a service comment LIPID INTER PRETA TION 09/14 9:38 AM PRECISION FARMING COORDINATOR [facility] Not Available Not Available 10/29/2024 14:41:48 09/14/20 24 09/14/2024 Lipid 1996 panel - Serum or Plasm a interpretati on and review of laboratory results Abnorm al Not Available Not Available 14:41:48 11/07/19 25 11/07/2024 MAGNE SIUM magnesium 2.3 mg/dL 1.8-2. 4 Not Available [facility] (Lab) [place], [address], 11/07/2024 11:25:14 11/07/19 25 11/07/2024 RENAL FUNCT ION PANEL glucose 129 mg/dL 70-99 high Not Available [facility] (Lab) [place], [address], 11/07/2024 11:25:16 11/07/19 25 11/07/2024 RENAL FUNCT ION PANEL BUN 25 mg/dL 7-18 high Not Available [facility] (Lab) [place], [address], 11/07/2024 11:25:16 11/07/19 25 11/07/2024 RENAL FUNCT ION PANEL creatinine 1.18 mg/dL 0.55-1 .02 high Not Available [facility] (Lab) [place], [address], 11/07/2024 11:25:16 11/07/19 25 11/07/2024 RENAL FUNCT ION PANEL sodium 143 mmol/ L 136-14 5 Not Available [facility] (Lab) [place], [address], 11/07/2024 11:25:16 11/07/19 25 11/07/2024 RENAL FUNCT ION PANEL potassium 3.8 mmol/ L 3.5-5. 1 Not Available [facility] (Lab) [address] [place], [address], 11/07/2024 11:25:16 11/07/19 25 11/07/2024 RENAL FUNCT ION PANEL chloride 112 mmol/ L 97-115 Not Available [facility] (Lab) [address] [place], [address], 11/07/2024 11:25:16 11/07/19 25 11/07/2024 RENAL FUNCT ION PANEL total CO2 26.4 mmol/ L 21-32 Not Available [facility] (Lab) [address], [place], [address], 11/07/2024 11:25:16 11/07/19 25 11/07/2024 RENAL FUNCT ION PANEL calcium 9.5 mg/dL 8.5-10 .1 Not Available [facility] (Lab) [address] [place], [address], 11/07/2024 11:25:16 11/07/19 25 11/07/2024 RENAL FUNCT ION PANEL albumin 3.5 g/dL 3.4-5. 0 Not Available [facility] (Lab) [address] [place], [address], 11/07/2024 11:25:16 11/07/19 25 11/07/2024 RENAL FUNCT ION PANEL phosphorus 3.2 mg/dL 2.5-4. 9 Not Available [facility] (Lab) [address] [place], [address], 11/07/2024 11:25:16 11/07/19 25 11/07/2024 RENAL FUNCT ION PANEL anion gap 4.6 mmol/ L 2-10 Not Available [facility] (Lab) [address] [place], [address], 11/07/2024 11:25:16 11/07/19 25 11/07/2024 RENAL FUNCT ION PANEL BUN creatinine ratio 21.2 6-26 Not Available [facility] (Lab) [place], [address], 11/07/2024 11:25:16 11/07/19 25 11/07/2024 RENAL FUNCT ION PANEL est GFR 55 mL/mi n/1.7 3_M2 >90 low NOTE: eGFR is not calcu lated for patie nts <18 years of age or gende r unkno wn. This is an estim ated GFR calcu latio n using the new CKD EPI creat inine equat ion witho ut race and so does not requi re a corre ction facto r for race. This estim ated GFR shoul d not be used for calcu latin g drug doses . Not Available [facility] (Lab) [place], [address], 11/07/2024 11:25:16 11/07/19 25 11/07/2024 UA WITH MICRO specimen type URINE CLEAN CATCH Not Available [facility] (Lab) [address] [place], [address], 11/07/2024 12:14:00 11/07/19 25 11/07/2024 UA WITH MICRO color LIGHT YELLOW Not Available [facility] (Lab) [place], [address], 11/07/2024 12:14:00 11/07/19 25 11/07/2024 UA WITH MICRO clarity CLEAR Not Available [facility] (Lab) [place], [address], 11/07/2024 12:14:00 11/07/19 25 11/07/2024 UA WITH MICRO specific gravity 1.015 1.001- 1.030 Not Available [facility] (Lab) [place], [address], 11/07/2024 12:14:00 11/07/19 25 11/07/2024 UA WITH MICRO pH, urine 6.5 5.0-9. 0 Not Available [facility] (Lab) [place], [address], 11/07/2024 12:14:00 11/07/19 25 11/07/2024 UA WITH MICRO leukocytes 250 neg abnormal Not Available [facility] (Lab) [place], [address], 11/07/2024 12:14:00 11/07/19 25 11/07/2024 UA WITH MICRO nitrite NEGATI VE neg Not Available [facility] (Lab) [place], [address], 11/07/2024 12:14:00 11/07/19 25 11/07/2024 UA WITH MICRO protein NEGATI VE mg/dL <30 Not Available [facility] (Lab) [place], [address], 11/07/2024 12:14:00 11/07/19 25 11/07/2024 UA WITH MICRO glucose NORMAL mg/dL norm Not Available [facility] (Lab) [place], [address], 11/07/2024 12:14:00 11/07/19 25 11/07/2024 UA WITH MICRO ketone NEGATI VE mg/dL neg Not Available [facility] (Lab) [address] [facility], [place], [address], 11/07/2024 12:14:00 11/07/19 25 11/07/2024 UA WITH MICRO urobilinogen NORMAL mg/dL norm Not Available [facility] (Lab) [address], [place], [address], 11/07/2024 12:14:00 11/07/19 25 11/07/2024 UA WITH MICRO bilirubin NEGATI VE mg/dL neg Not Available [facility] (Lab) [address] [facility], [place], [address], 11/07/2024 12:14:00 11/07/19 25 11/07/2024 UA WITH MICRO blood NEGATI VE neg Not Available [facility] (Lab) [address], [place], [address], 11/07/2024 12:14:00 11/07/19 25 11/07/2024 UA WITH MICRO mucous RARE /lpf Not Available [facility] (Lab) [address] [facility], [place], [address], 11/07/2024 12:14:00 11/07/19 25 11/07/2024 UA WITH MICRO WBC 3 /hpf <6 Not Available [facility] (Lab) [place], [address], 11/07/2024 12:14:00 11/07/19 25 11/07/2024 UA WITH MICRO RBC 1 /hpf <6 Not Available [facility] (Lab) [place], [address], 11/07/2024 12:14:00 11/07/19 25 11/07/2024 UA WITH MICRO squamous epithelial RARE /hpf Not Available [facility] (Lab) [address], [place], [address], 11/07/2024 12:14:00 11/07/19 25 11/07/2024 MICRO ALB/C REAT RATIO creatinine, urine 69.8 mg/dL 28-217 Not Available [facility] (Lab) [address] [facility], [place], [address], 11/07/2024 12:30:19 11/07/19 25 11/07/2024 MICRO ALB/C REAT RATIO microalbumin , urine 0.7 mg/dL <2.0 Not Available [facility] (Lab) [address] [facility], [place], [address], 11/07/2024 12:30:19 11/07/19 25 11/07/2024 MICRO ALB/C REAT RATIO malb/creat ratio 9.8 mg/g <30 Not Available [facility] (Lab) [address] [facility], [place], [address], 11/07/2024 12:30:19 07/19/20 23 [address] l[address] [facility] [facility] [place] [address] EXAM: XR LUMB SPINE 3V INDICA TION: Pt comes in thinki ng she threw out her back. Pt was sittin g on a floor cleani ng a shelf and she reache d forwar d and felt and excruc iating pain and curren tly has very little mobili ty and is a lot of pain. Pt denies loss of bowel or bladde r. Pt denies numbne ss or tingli ng in the legs. TECHNI QUE: AP, latera l and patell ar views lumbar spine were obtain ed. COMPAR AUDREY EXAM: 3V lumbar spine from April 23, 2023. FINDIN GS: Again noted are anteri or plate and screw fusion device s with interv ertebr al spacer s at the L4-5 and L5-S1 levels , as well as right stabil izatio n jenna and pedicl e screws dorsal ly fusing L4-L5. No eviden ce of hardwa re failur e or loosen ing. There is also an appare nt epidur al stimul ator device with the batter y and pulse genera tor and proxim al leads again noted. Lead tips are not seen on this curren t study. There is mild spondy losis with preser vation lumbar spinal column alignm ent. No fractu re or sublux ation. No destru ctive neopla sm. IMPRES NILTON: STABLE FUSION HARDWA RE ANTERI SHIRA AND DORSAL LY FROM L4-S1. MILD SPONDY LOSIS. NO ACUTE FINDIN GS OR EVIDEN CE OF HARDWA RE COMPLI CATION . Referr ed By: Electr onical ly Signed By: Omar casanova MD on 7:24 PM Interp reted By: Omar casanova MD, 023 7:[email or web address] [place] [address] [address] [facility], [place], [address], 07/22/2023 09:27:08 08/25/20 23 MRI cerv spine wo con [facility] [address] [place] [address] EXAMIN ATION: MRI of the cervic al spine withou t contra st 023 INDICA TION:N gricelda and upper extrem ity pain TECHNI QUE: Multip le, multis equenc e or imagin g cervic al spine was perfor med withou t intrav enous contra st. COMPAR AUDREY: CT the cervic al spine , MRI of the cervic al spine FINDIN GS:Cer vical spine is in anatom ic alignm ent with preser vation of the verteb ral body height s and disc spaces . Bone marrow signal is within normal limits with no acute fractu re or disloc ation. Partia lly visual ized intrar enal conten ts are unrema rkable . The cervic al spinal cord is unrema rkable in course calibe r contou r and signal . No prever tebral edema. No parasp inal mass or fluid collec tion No stenos is at the forame n magnum or C1/C2 level C2/C3: Negati ve C3/C4: Small midlin e disc protru nilton causin g mild centra l canal stenos is. Thecal sac measur es 8 mm. C4/C5: Disc space narrow ing with small midlin e disc extrus ion causin g modera te centra l canal stenos is, unchan ged. Thecal sac measur es 6 cm.. There is a slight indent ation of the ventra l cord at this level with no defini te cord signal abnorm ality. C5/C6: Disc space narrow ing with small midlin e disc protru nilton causin g mild centra l canal stenos is, unchan ged. The thecal sac measur es 8 mm C6/C7: Negati ve C7/T1: Negati ve. IMPRES NILTON: 1. Modera te centra l canal stenos is at C4/C5 due to a small midlin e disc extrus ion, not suffic iently change d. Mild centra l canal stenos is at C3/C4 C5/C6, unchan ged 2. No acute osseou s abnorm ality. 3. No signif icant cervic al neural forami nal stenos is. No signif icant change compar ed to the prior MRI of 022 allowi ng for differ ences in techni que and measur ement. Referr ed By: LUCY [facility] onical ly Signed By: Danny Moreno MD on 2022 3:43 PM Interp reted By: Danny Moreno MD, 2022 3:[address] [facility], [place], [address], 08/26/2023 14:16:05 09/10/20 23 MAMMO , scree efe, tomos ynthe sis, bilat eral [facility] [address] [place] [address] This is a summar y report . The comple te report is availa ble in the patien t's medica l record . If you cannot access the medica l record , please contac t the sendin karma guy for a detail ed fax or copy. Examin ation: Screen ing bilate ral mammog kathleen Access ion: [id number] Exam Date/T laura: 2022 9:19 AM Clinic al histor y: No curren t compla ints. Compar audrey: 021 Techni que: Digita l screen ing mammog phan of both breast s was perfor med. Breast tomosy nthesi s acquis itions were obtain ed and review ed. This study was read with the assist ance of a Viralheat er-aid ed detect ion system . Tissue densit y: There are scatte red areas of fibrog landul ar densit y. Findin gs: No suspic ious masses , malign ant appear ing calcif icatio ns, skin thicke efe or other abnorm alitie s are presen t. No signif icant change from the prior exam. IMPRES NILTON: No suspic ious mammog raphic findin gs. Recomm endati on: 1. Routin e Screen ing, Bilate ral Assess ment: ACR BI-RAD S 2 - BENIGN FINDIN G(S) Ordere d By: PEBBLES GIVENS US Electr onical ly Signed By: Clayton Gan on 2022 9:08 AM Interp reted By: Clayton Gan, 2022 9:07 AM merlin [facility] 1 [facility], [place], [address], 09/17/2023 14:09:33 10/20/[address] ABD+p el W con [facility] [place] [address] EXAMIN ATION: CT abdome n/pelv is with INDICA TION: Abdomi nal pain. COMPAR AUDREY: CT abdome n/pelv is 023. TECHNI QUE: Axial images were obtain ed throug h the abdome n and pelvis with intrav enous contra st. Additi onal images were recons tructe d in the hatfield l and sagitt al planes . 100 mL of Isovue -370 was admini stered intrav enousl y. DOSE OPTIMI ZATION : This facili ty uses dose optimi zation techni ques as approp riate to perfor m exams, includ ing at least one of the follow ing techni ques: 1. Automa mirza exposu re contro l. 2. Adjust ment of the mA and/or kV accord ing to patien t size (this includ es techni ques or standa rdized protoc ols for target ed exams where dose is matche d to the indica tion/r diane for exam, i.e. extrem ities or head). 3. Use of iterat robert recons tructi ve techni que. FINDIN GS: Lung Bases: Bibasi lar atelec tatic change s. Liver: Focal fatty infilt ration at the falcif orm ligame nt. Gallbl adder: Prior cholec ystect jane. Pancre as: Normal . Spleen : Normal . Adrena l Glands : Normal . Kidney s: Symmet lay nephro grams. No obstru ctive uropat hy. Left renal cortic al scarri ng as can be seen with sequel a of prior stone diseas e or infect ion. Bilate ral sub-5 mm nonobs tructi ng renal calcul i. Abdomi nal Wall: Neuros timula tor noted at the superi or left glutea l soft tissue s with paired crania lly direct ed be seen in the dorsal thorac ic epidur al space. Stomac h: Normal . Large and Small Bowel: No abnorm ally disten ded loops of bowel to sugges t bowel obstru ction. Overal l, mild stool burden . Append ix: Prior append ectomy by histor y. Mesent kylie: Normal . Free Fluid: None. Lymph Nodes: No adenop athy by imagin g size criter ia. Vascul ature: Normal . Urinar y Bladde r: Normal . Uterus and Adnexa : Prior hyster ectomy . Visual ized Osseou s Struct ures: There is no bony destru ctive proces s. Discec mg and fusion hardwa re noted at L4-L5 and L5-S1. IMPRES NILTON: 1. No eviden ce of acute bowel pathol ogy. 2. Bilate ral sub-5 mm nonobs tructi ng renal calcul i. Referr ed By: Electr onical ly Signed By: Huber García MD on 10/20/19 5:13 AM Interp reted By: Huber García MD, 10/20/19 5:07 AM [facility] [address], [place], [address], 10/21/2023 10:36:32 11/09/19 xr lumb spine AP+la t only [facility] [address] [address] Examin ation: Lumbar Spine Radiog raphs Access ion: [id number] Exam date/t laura: 024 9:30 AM Reason For Exam: Implan t Check For MRI Compar audrey: Lumbar spine radiog raphs 023 Views: AP, latera l and cone-d own detail ed latera l radiog raphs of the lumbar spine were obtain ed Findin gs: Anteri or fusion hardwa re of L4-5 and L5-S1 with interb gale spacer s at these levels . Right outdoor pursuits instructor ior fusion of L4-5. Left flank spinal cord stimul ator pack with leads enteri ng the spinal canal at the L1 level and extend ing toward s the thorac ic spine off the field of view. Cholec ystect jane. No acute fractu re nor destru ctive proces s of the visual ized osseou s struct ures. Surgic al clip within the right aspect of the pelvis . Modera te amount stool throug hout the colon. Nonobs tructi ve bowel gas patter n. IMPRES NILTON: Spinal cord stimul ator pack with leads enteri ng the spinal canal at the L1 level and extend ing toward s the thorac ic spine off the field of view. Ordere d By: LUCY HURTADO S Electr onical ly Signed By: Eamon Perry MD on 9:48 AM Interp reted By: Eamon Perry MD, 9:46 AM [facility] [address], [place], [address], 11/11/2023 10:43:08 11/12/19 MRI lumb spine wo con [facility] [address] [address] EXAMIN ATION: MRI lumbar spine withou t contra st ACCESS ION: [id number] EXAM DATE/T LAURA: 10:24 AM REASON FOR EXAM: 52 years of age, Female , with lower back pain for years radiat ing down legs COMPAR AUDREY: Lumbar spine radiog raphs , lumbar spine MRI TECHNI QUE: Multip lanar, multis equenc e MRI of the lumbar spine was obtain ed withou t the use of an IV contra st agent. FINDIN GS: Anteri or fusion hardwa re at L4-S1 with disc spacer device s at L4-L5 and L5-S1. Minima l retrol isthes is of L5 on S1. Verteb ral body height and alignm ent are otherw ise preser sierra. No edema is seen on STIR images . No suspic ious marrow lesion s are seen. The visual ized aspect s of the distal cord are withou t signal abnorm ality. Degene rative change s are as below: L1-L2: Small disc bulge. Bilate ral facet hypert rophy. No spinal canal stenos is. Mild bilate ral neural forami nal stenos is. L2-L3: Disc bulge and bilate ral facet hypert rophy result ing in mild spinal canal stenos is. Mild right and modera te left neural forami nal stenos is. L3-L4: Disc bulge and bilate ral facet hypert rophy result ing in modera te-sev ere spinal canal stenos is with aggreg ation of the cauda equina nerve roots. Modera te right and mild/m oderat e left neural forami nal stenos is. L4-L5: Postop erativ e level. Bilate ral facet hypert rophy. No signif icant spinal canal stenos is. Mild right and minima l left neural forami nal stenos is. L5-S1: Postop erativ e level. Disc osteop hyte comple x result ing in abutme nt of the descen ding left S1 nerve root. No signif icant overal l spinal canal stenos is. Mild right and mild/m oderat e left neural forami nal stenos is. No prever tebral soft tissue swelli ng is identi fied. IMPRES NILTON: 1. Postop erativ e change s at L4-S1. 2. Degene rative change s as detail ed above, result ing in up to modera te to severe spinal canal stenos is at L3-L4. Referr ed By: LUCY Bray Electr onical ly Signed By: Tobias andrews Dr. on 12:37 AM Interp reted By: Tobias andrews Dr[address] 12:[address] [facility], [place], [address], 11/12/2023 15:35:19 02/22/[address] ABD+p el W con [facility] [place] [address] Examin ation: CT abdome n and pelvis with IV contra st. Clinic al Inform ation: Left lower quadra nt pain. Compar audrey:C T 10/20/19 24. Techni que: IV contra st: 100 mL Isovue 370. Oral contra st: None. Techni marcial commen ts: Standa rd techni que. Dose reduct ion: This CT exam was perfor med using one or more of the follow ing dose reduct ion techni ques: Automa mirza exposu re contro l, adjust ment of the mA and/or kV accord ing to patien t size, and/or use of iterat robert recons tructi on techni que. Findin gs: LOWER CHEST Heart is normal in size. Lung bases are clear. No pleura l or perica rdial effusi ons. UPPER ABDOME N Liver and bile ducts: No focal liver lesion . Portal vein and hepati c veins are patent . No biliar y dilata tion. Gallbl adder: Surgic ally absent . Pancre as: Unrema rkable . Spleen : Normal . RETROP ERITON EUM Adrena ls: Normal . Kidney s: Enhanc e symmet ricall y with no solid mass or hydron ephros is. Redemo nstrat ed cortic al scarri ng of the left kidney . Nonobs tructi ng bilate ral renal stones , simila r to prior. Lymph nodes: No lympha denopa thy in the abdome n or pelvis . BOWEL AND PERITO NEUM Bowel: Normal in calibe r and wall thickn ess. Free air or fluid: None. VASCUL ATURE The abdomi nal aorta is normal in calibe r. PELVIS No abnorm ality. BONES/ SOFT TISSUE S Anteri or fusion hardwa re identi fied at L4-L5 and L5-S1. 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 A spinal stimul ator device is in place. No acute osseou s abnorm ality. Impres nilton: 1. No acute abnorm ality identi fied within the abdome n or pelvis . 2. Small nonobs tructi ng bilate ral renal stones . Ordere d By: JAKOB Hess Electr onical ly Signed By: Jim Ta MD on 02/22/20 12:58 PM Interp reted By: Jim Ta MD, 02/22/20 12:52 PM [email or web address] [facility] [address] [facility], [place], [address], 02/23/2024 14:39:20 03/10/[address] lumb spine wo con [facility] [place] [address] DATE: 024 1:47 PM INDICA TION: Lumbar radicu lopath y. Prior lumbar surger y. EXAMIN ATION: CT examin ation of the lumbar spine. TECHNI QUE: CT examin ation of the lumbar spine was perfor med with axial and multip lanar reform atted images obtain ed. A dose loweri ng techni que was used for this proced ure, which may includ e, but is not limite d to, dose reduct ion techni que, automa mirza exposu re contro l, the use of iterat robert recons tructi on, and ALARA (As Low As Reason ably Achiev able) / Image Gently techni ques. COMPAR AUDREY: 01/19/20 18 FINDIN GS: There are 5 nonrib -beari ng lumbar -type verteb ral levels identi fied. 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 There is mature osseou s fusion of the L4-L5 and partia l ankylo sis of the L5-S1 disc space. The fixati on hardwa re appear s intact and withou t eviden ce of fractu re or loosen ing. Spinal stimul ator leads are seen enteri ng the spinal canal at T12-L1 , extend ing cephal ad, the upper extent of which are not imaged . The lumbar verteb ral alignm ent, verteb ral body height s, and facet alignm ent are mainta ined. Multil evel degene rative change s are eviden t in the lumbar spine with disc degene ration , endpla te osteop hytes, ligame ntum flavum thicke efe, and facet hypert rophy noted. Imaged portio ns of the soft tissue s reveal surgic al change s of cholec ystect jane. Bilate ral nonobs tructi ng nephro lithia sis. T10-T1 1: Facet hypert rophy. No canal stenos is. Mild right forami nal narrow ing. T11-T1 2: Ligame ntous/ facet hypert rophy. No canal or forami nal narrow ing. T12-L1 : Ligame ntous/ facet hypert rophy. No canal or forami nal narrow ing. L1-L2: Mild disc bulge. Ligame ntous/ facet hypert rophy. No canal or forami nal narrow ing. L2-L3: Disc bulge with extens ion into the forami na. Possib le superi mposed left forami nal protru nilton. Ligame ntum flavum thicke efe. Facet hypert rophy. Endpla te osteop hytes. At least mild canal stenos is. Mild to modera te left and mild right forami nal narrow ing. L3-L4: Disc bulge with extens ion into the forami na. Promin ent ligame ntum flavum thicke efe. Promin ent facet hypert rophy. Margin al endpla te osteop hytes. Modera te to severe canal stenos is. Modera te right and mild left forami nal narrow ing. L4-L5: Post surgic al change s. Forestry Faculty Member ior and margin al endpla te osteop hytes. Facet ankylo sis and hypert rophy. Mild to modera te canal stenos is. Mild right forami nal narrow ing. L5-S1: Post surgic al change s. Forestry Faculty Member ior and margin al endpla te osteop hytes. Facet ankylo sis and hypert rophy. Mild canal stenos is. Modera te left and mild right forami nal narrow ing. IMPRES NILTON: 1. Postsu rgical and multil evel degene rative change s in the lumbar spine, as detail ed above. 2. Nonobs tructi ng bilate ral nephro lithia sis. Ordere d By: ИВАН GRANADOS Electr onical ly Signed By: Oliver Reynoso MD on 2:19 PM Interp reted By: Oliver Reynoso MD, 2:[address], [place], [address], 03/10/2024 15:28:25 03/29/20 24 XR, lumba r spine No observ ation record ed. [place] [address], [place], [address], 03/30/2024 09:03:08 05/28/20 24 05/27/2024 elect silvano barron am No observ ation record ed. [address], [place], [address], 06/04/2024 14:44:55 07/30/20 24 07/30/2024 XR, chest No observ ation record ed. [address], [place], [address], 08/06/2024 12:56:39 08/03/20 24 08/03/2024 jeremías can cardi olite stres s test (PROC ) No observ ation record ed. [facility] Card[facility] Department [address] [place], [address], 08/03/2024 15:09:38 08/03/20 24 08/03/2024 jeremías can cardi olite stres s test (PROC ) No observ ation record ed. [facility] Nuclear Medicine [address] , [place], [address], 08/12/2024 14:04:20 08/03/20 24 08/03/2024 jeremías can cardi olite stres s test (PROC ) No observ ation record ed. [facility] [address] [place], [place], [address], 08/04/2024 07:48:31 Result Notes None recorded. Problems Name Problem SNOMED Code Status Onset Date Resolution Date Notes Provider Name and Address Organization Details Recorded Time Chronic low back pain 889313947 Active 2018 est with pain management Not Available [facility] 3 23:39:48 Restless legs 71369730 Active 2018 Not Available [facility] 3 23:39:48 Diverticu litis 637397773 Active 2021 Not Available [facility] 3 23:39:48 Preoperat robert cardiovas cular examinati on Active 2023 Janeen Godfrey MA [facility], [place] - [facility] 4 13:06:50 Electroca rdiogram abnormal 576268809 Active 2023 Janeen Godfrey MA null, [place] - [facility] 4 13:06:51 Cardiovas cular stress test abnormal 444706435 Active 2023 Valerieshazia MOJGAN Chavez null, [place] - [facility] 4 11:10:46 Bipolar disorder 88574848 Active Not Available [facility] 3 23:39:48 Perforati on of tympanic membrane 05032397 Active Not Available [facility] 3 23:39:48 Notes:Some problems listed i n Document: #[id number] could not be added to this patient's chart. Please review this document and add these problems to the patient's chart manually as needed. Problem Notes None recorded. Procedures Surgical History Date Name Laterality Status Provider Name and Address Organization Details Recorded Time 024 LEFT HEART CATHETERIZATION (SURG) completed Not Available [facility] 09/11/2024 16:06:37 018 Cerumen Removal completed SWATI Moody Attn: [address] [place], [address], [place] [facility] 11/22/2017 14:38:03 016 total hysterectomy completed Radha Dupont MD Attn: [address] [place], [address], [place] - [facility] 04/26/2023 13:42:59 Appendectomy completed Albert Vasquez [place] - [facility] 09/27/2015 10:45:08 Other completed Albert Hammhu [place] - [facility] 09/27/2015 10:45:08 Tonsillectomy completed Albert Vasquez [place] [facility] 09/27/2015 10:45:08 Cholecystectomy [place] Clarence Vasquez [place] - [facility] 09/27/2015 10:45:08 Hysterectomy completed SWATI Moody Attn: [address] [place], [address], [place] [facility] 09/27/2015 10:57:33 Back Surgery completed Albert Vasquez [place] - [facility] 09/27/2015 10:45:08 Imaging Results Imaging Date Name Status LastModified by Organization Details LastModified Time 07/19/2023 xr lumb spine 3V completed [address], [place], [address], 07/22/2023 09:27:08 08/25/2023 MRI cerv spine wo con completed [address], [place], [address], 08/26/2023 14:16:05 09/10/2023 MAMMO, screening, tomosynthesis, bilateral [facility] [address], [place], [address], 09/17/2023 14:09:33 10/20/2023 CT ABD+pel W con completed [address], [place], [address], 10/21/2023 10:36:32 11/09/2023 xr lumb spine AP+lat only completed [address], [place], [address], 11/11/2023 10:43:08 11/12/2023 MRI lumb spine wo con completed [address], [place], [address], 11/12/2023 15:35:19 02/22/2024 CT ABD+pel W con completed [address], [place], [address], 02/23/2024 14:39:20 03/10/2024 CT lumb spine wo con completed [address] [place], [address], 03/10/2024 15:28:25 03/29/2024 XR, lumbar spine completed [address], [address], 03/30/2024 09:03:08 05/27/2024 electrocardiogram completed [address], [address], 06/04/2024 14:44:55 07/30/2024 XR, chest completed [address], [address], 08/06/2024 12:56:39 08/03/2024 lexiscan cardiolite stress test (PROC) completed [facility]iology Department [address] [place], [address], 08/03/2024 15:09:38 08/03/2024 lexiscan cardiolite stress test (PROC) completed [facility] [address] [place], [address], 08/12/2024 14:04:20 08/03/2024 lexiscan cardiolite stress test (PROC) completed [facility] [address] [place], [address], 08/04/2024 07:48:31 Procedure Notes None recorded. Medical Equipment None Reported. Allergies Allergen ID Allergen Name Allergen Category Reaction Reaction Severity Criticality Documentation Date Start Date Code Code System Note Provider Name and Address Organization Details Recorded Time 39569 Substance with sulfonami de structure and antibacte rial mechanism of action (substanc e) medicatio n hives moderate Not available 09/27/2015 20434 8007 SNOMED Not Available Not Available Not Available Medications Name Sig Start Date Stop Date Status Note LastModified by Organization Details LastModified Time carisoprodo l 350 mg tablet active Not Available Not Available Not Available glycopyrrol ate 1 mg tablet 11/24 completed Not Available Not Available Not Available cyclobenzap rine 10 mg tablet TAKE 1 TABLET BY MOUTH TWICE DAILY active Not Available Not Available No t Available ziprasidone 80 mg capsule take 1 cap by mouth daily at bedtime 06/02 completed Not Available Not Available Not Available amoxicillin 500 mg capsule 11/24 completed Not Available Not Available Not Available furosemide 40 mg tablet Take 1 tablet every day by oral route in the morning for 90 days. active Not Available Not Available No t Available lamotrigine 150 mg tablet Take 1 tablet every day by oral route for 30 days. 11/22 completed Not Available Not Available Not Available silver sulfadiazin e 1 % topical cream APPLY EVERY DAY TO AFFECTED AREA 06/05 completed Not Available Not Available Not Available bupropion HCl SR 150 mg tablet,12 hr sustained-r elease Take 2 tablets every day by oral route for 30 days. 11/22 completed Not Available Not Available Not Available promethazin e-DM 6.25 mg-15 mg/5 mL oral syrup TAKE 5 ML BY MOUTH EVERY 4 HOURS FOR 5 DAYS NEEDED 09/14 completed Not Available Not Available Not Available prednisone 10 mg tablet 08/17 completed Not Available Not Available Not Available gabapentin 600 mg tablet 07/25 completed Not Available Not Available Not Available ropinirole 1 mg tablet 06/18 completed Not Available Not Available Not Available cromolyn 5.2 mg/spray (4 %) nasal spray USE 1 SPRAY INTO BOTH NOSTRILS QID PRN 11/24 completed Not Available Not Available Not Available tizanidine 2 mg tablet TAKE 1 TABLET BY MOUTH EVERY 8 HOURS NEEDED 01/02 completed Not Available Not Available Not Available citalopram 40 mg tablet TAKE 1 TABLET BY MOUTH EVERY DAY active Not Available Not Available No t Available loperamide 2 mg capsule TAKE 2 CAPSULES BY MOUTH INITALLY FOLLOWED BY 1 CAPSULE BY MOUTH WITH EACH LOOSE STOOL. MAX OF 6 CAPSULES PER DAY 06/24 completed Not Available Not Available Not Available trazodone 50 mg tablet 04/11 completed Not Available Not Available Not Available azithromyci n 250 mg tablet 11/22 completed Not Available Not Available Not Available ibuprofen 800 mg tablet Take 1 tablet 3 times a day by oral route. 09/15 completed Not Available Not Available Not Available ofloxacin 0.3 % eye drops Instill five drops into both ears twice daily for 5 days 07/25 completed Not Available Not Available Not Available tizanidine 4 mg tablet take one tablet TID as needed 07/13 completed Not Available Not Available Not Available benzonatate 200 mg capsule TAKE 1 CAPSULE BY MOUTH THREE TIMES DAILY NEEDED 02/20 completed Not Available Not Available Not Available ampicillin 500 mg capsule 11/25 completed Not Available Not Available Not Available citalopram 10 mg tablet TAKE 1 TABLET BY MOUTH DAILY 08/21 completed Not Available Not Available Not Available chlorzoxazo ne 500 mg tablet TAKE 1 TABLET BY MOUTH THREE TIMES DAILY FOR 21 DAYS 06/24 completed Not Available Not Available Not Available hydrocodone 5 mg-acetamin ophen 325 mg tablet TAKE 1 TABLET BY MOUTH EVERY 6 HOURS 06/05 completed Not Available Not Available Not Available naloxone 0.4 mg/mL injection solution inject 1 ml IM as needed 11/24 completed Not Available Not Available Not Available methadone 10 mg tablet take one tablet two times a day 05/13 completed Not Available Not Available Not Available meloxicam 15 mg tablet 07/25 completed Not Available Not Available Not Available sucralfate 1 gram tablet TAKE 1 TABLET BY MOUTH EVERY DAY NEEDED 06/05 completed Not Available Not Available Not Available ondansetron HCl 4 mg tablet 11/24 completed Not Available Not Available Not Available famotidine 40 mg tablet 06/02 completed Not Available Not Available Not Available prednisone 20 mg tablet TAKE 2 TABLETS BY MOUTH DAILY FOR 5 DAYS 06/05 completed Not Available Not Available Not Available Tubersol 5 tub. unit/0.1 mL intradermal injection solution Inject 0.1 mL by intraderm al route. 09/14 completed Not Available Not Available Not Available clonazepam 0.5 mg tablet 06/05 completed Not Available Not Available Not Available gabapentin 400 mg capsule TAKE 1 CAPSULE BY MOUTH THREE TIMES DAILY 11/24 completed Not Available Not Available Not Available clonazepam 1 mg tablet Take 2 tablets 3 times a day by oral route. 07/25 completed Not Available Not Available Not Available permethrin 5 % topical cream Apply 1 applicati on twice a week by topical route as needed for 1 day. 11/22 completed Not Available Not Available Not Available clindamycin HCl 150 mg capsule 01/24 completed Not Available Not Available Not Available penicillin V potassium 500 mg tablet 06/05 completed Not Available Not Available Not Available topiramate 25 mg tablet TAKE 1 TABLET BY MOUTH EVERY DAY AT BEDTIME 06/17 completed Not Available Not Available Not Available potassium chloride ER 10 mEq tablet,exte nded release TAKE 1 TABLET BY MOUTH EVERY DAY 05/17 completed Not Available Not Available Not Available metronidazo le 500 mg tablet active Not Available Not Available Not Available propranolol 60 mg tablet Take 0.5 tablets 3 times a day by oral route for 30 days. 05/27 completed Not Available Not Available Not Available levofloxaci n 250 mg tablet 09/15 completed Not Available Not Available Not Available doxepin 10 mg capsule TAKE ONE CAPSULE BY MOUTH EVERY NIGHT AT BEDTIME ALTERNATI NG WITH RAMELTEON NEEDED 06/17 completed Not Available Not Available Not Available ciprofloxac in 500 mg tablet TAKE 1 TABLET BY MOUTH TWICE DAILY 04/19 completed Not Available Not Available Not Available morphine ER 30 mg tablet,exte nded release active Not Available Not Available Not Available sulfamethox azole 800 mg-trimetho prim 160 mg tablet TAKE 1 TABLET BY MOUTH EVERY 12 HOURS FOR 3 DAYS 06/24 completed Not Available Not Available Not Available hydrocodone 10 mg-acetamin ophen 325 mg tablet 05/27 completed Not Available Not Available Not Available peg-electro lyte solution 420 gram oral solution TAKE DIRECTED BY OFFICE 06/05 completed Not Available Not Available Not Available tramadol 50 mg tablet Take 1 tablet every 12 hours by oral route for 5 days. 02/20 completed Not Available Not Available Not Available risperidone 3 mg tablet take one tablet daily at bedtime 11/24 completed Not Available Not Available Not Available lamotrigine 25 mg tablet TAKE 2 TABLETS BY MOUTH TWICE DAILY 08/21 completed Not Available Not Available Not Available oxycodone 15 mg tablet take 1 tablet twice daily 07/25 completed Not Available Not Available Not Available baclofen 20 mg tablet take one tablet once daily 07/14 completed Not Available Not Available Not Available ketorolac 10 mg tablet 08/21 completed Not Available Not Available Not Available meloxicam 7.5 mg tablet active Not Available Not Available Not Available betamethaso ne acetate and sodium phos 6 mg/mL suspension for injection Take 12 mg by injection route. 05/17 completed Not Available Not Available Not Available oxycodone-a cetaminophe n 5 mg-325 mg tablet TAKE 1 TABLET BY MOUTH EVERY 4 HOURS FOR UP TO 5 DAYS NEEDED FOR PAIN 11/24 completed Not Available Not Available Not Available ofloxacin 0.3 % ear drops INSTILL 5 DROPS INTO both EAR(S) BY OTIC ROUTE 2 TIMES PER DAY for 5 days 2015 active Not Available Not Available Not Avai lable propranolol 40 mg tablet active Not Available Not Available Not Available amoxicillin 875 mg tablet 02/04 completed Not Available Not Available Not Available citalopram 20 mg tablet TAKE 1 AND 1/2 TABLETS BY MOUTH EVERY DAY 06/17 completed Not Available Not Available Not Available potassium chloride ER 20 mEq tablet,exte nded release(par t/cryst) TAKE 2 TABLETS BY MOUTH EVERY MORNING AND 1 TABLET BY MOUTH EVERY EVENING 06/05 completed Not Available Not Available Not Available famotidine 20 mg tablet 06/05 completed Not Available Not Available Not Available magnesium oxide 400 mg (241.3 mg magnesium) tablet TAKE 1 TABLET BY MOUTH EVERY DAY active Not Available Not Available No t Available estradiol 1 mg tablet TAKE 1 TABLET BY MOUTH DAILY 11/24 completed Not Available Not Available Not Available oxycodone-a cetaminophe n 10 mg-325 mg tablet take one tabet four times a day 05/13 completed Not Available Not Available Not Available gabapentin 800 mg tablet 07/21 completed Not Available Not Available Not Available trazodone 100 mg tablet TAKE 2 TABLETS BY MOUTH AT BEDTIME 11/24 completed Not Available Not Available Not Available dicyclomine 20 mg tablet Take 1 tablet twice a day by oral route for 30 days. active Not Available Not Available No t Available phenazopyri dine 100 mg tablet active Not Available Not Available Not Available baclofen 10 mg tablet TAKE 1 TABLET BY MOUTH TWICE DAILY NEEDED 06/24 completed Not Available Not Available Not Available hydrocodone 7.5 mg-acetamin ophen 325 mg tablet TAKE 1 TABLET BY MOUTH EVERY 6 HOURS active Not Available Not Available No t Available ropinirole 2 mg tablet TAKE 1 TABLET BY MOUTH EVERY DAY AT BEDTIME active Not Available Not Available No t Available cephalexin 500 mg capsule 05/02 completed Not Available Not Available Not Available paroxetine 20 mg tablet active Not Available Not Available Not Available pantoprazol e 40 mg tablet,glenis yed release TAKE 1 TABLET BY MOUTH TWICE DAILY active Not Available Not Available No t Available hyoscyamine sulfate 0.125 mg tablet TAKE 1 TABLET BY MOUTH EVERY 4 HOURS NEEDED FOR CRAMPING 06/24 completed Not Available Not Available Not Available mirtazapine 30 mg tablet TAKE 1 TABLET BY MOUTH EVERY DAY AT BEDTIME 08/21 completed Not Available Not Available Not Available ropinirole 0.5 mg tablet TAKE 1 TABLET BY MOUTH EVERY NIGHT AT BEDTIME 06/05 completed Not Available Not Available Not Available clonazepam 2 mg tablet TAKE 1 TABLET BY MOUTH THREE TIMES DAILY 06/05 completed Not Available Not Available Not Available promethazin e 25 mg tablet 02/20 completed Not Available Not Available Not Available divalproex 125 mg tablet,glenis yed release 06/02 completed Not Available Not Available Not Available gabapentin 300 mg capsule take one tablet three times daily 05/13 completed Not Available Not Available Not Available omeprazole 20 mg capsule,del ayed release active Not Available Not Available Not Available mirtazapine 45 mg tablet TAKE 1 TABLET BY MOUTH AT BEDTIME 08/21 completed Not Available Not Available Not Available estradiol 2 mg tablet Take 1 tablet every day by oral route for 30 days. 07/25 completed Not Available Not Available Not Available diclofenac sodium 75 mg tablet,glenis yed release active Not Available Not Available Not Available hydroxyzine HCl 25 mg tablet TAKE 1 TABLET BY MOUTH EVERY 6 HOURS NEEDED 08/21 completed Not Available Not Available Not Available diclofenac sodium 50 mg tablet,glenis yed release TAKE 1 TABLET BY MOUTH TWICE DAILY NEEDED FOR FOOT PAIN 09/15 completed Not Available Not Available Not Available zolpidem 5 mg tablet TAKE 1 TABLET BY MOUTH EVERY DAY AT BEDTIME 06/05 completed Not Available Not Available Not Available furosemide 20 mg tablet TAKE 2 TABLETS BY MOUTH EVERY MORNING AND 1 TABLET BY MOUTH EVERY EVENING active Not Available Not Available No t Available ziprasidone 40 mg capsule 05/27 completed Not Available Not Available Not Available mirtazapine 15 mg tablet TAKE 1/2 TO 1 TABLET BY MOUTH EVERY DAY AT BEDTIME 06/05 completed Not Available Not Available Not Available gabapentin 100 mg capsule Take 1 capsule every day by oral route. 10/03 completed Not Available Not Available Not Available estradiol 0.5 mg tablet 09/15 completed Not Available Not Available Not Available diazepam 10 mg tablet 04/22 completed Not Available Not Available Not Available cefuroxime axetil 500 mg tablet TAKE 1 TABLET BY MOUTH EVERY 12 HOURS FOR 7 DAYS 09/14 completed Not Available Not Available Not Available fentanyl 25 mcg/hr transdermal patch Wear 1 patch by transderm al route- change every 3 days 01/23 completed Not Available Not Available Not Available polyethylen e glycol 3350 17 gram/dose oral powder DIS 238 GRAMS IN LQ AND DRK PO QD FOR 1 DAY FOR COLONOSCO PY PREP 11/24 completed Not Available Not Available Not Available oxycodone-a cetaminophe n 7.5 mg-325 mg tablet 04/22 completed Not Available Not Available Not Available levofloxaci n 750 mg tablet active Not Available Not Available Not Available methylpredn isolone 4 mg tablets in a dose pack FOLLOW PACKAGE DIRECTION S 08/20 completed Not Available Not Available Not Available ketorolac 60 mg/2 mL intramuscul ar solution Inject 60 mg by intramusc ular route. 04/19 completed Not Available Not Available Not Available celecoxib 100 mg capsule TAKE 1 CAPSULE BY MOUTH EVERY DAY 06/05 completed Not Available Not Available Not Available morphine 15 mg immediate release tablet active Not Available Not Available Not Available hydroxyzine HCl 10 mg tablet 04/11 completed Not Available Not Available Not Available ziprasidone 60 mg capsule Take 2 capsules every day by oral route at bedtime for 60 days. 11/22 completed Not Available Not Available Not Available ondansetron 4 mg disintegrat ing tablet 06/24 completed Not Available Not Available Not Available cefdinir 300 mg capsule Take 1 capsule every 12 hours by oral route. 09/22 completed Not Available Not Available Not Available topiramate 100 mg tablet TAKE 1 AND 1/2 TABLETS BY MOUTH EVERY DAY AT BEDTIME active Not Available Not Available No t Available fluticasone propionate 50 mcg/actuati on nasal spray,suspe nsion SHAKE LIQUID AND USE 2 SPRAYS IN EACH NOSTRIL EVERY DAY 06/05 completed Not Available Not Available Not Available divalproex 125 mg capsule,del ayed release sprinkle 04/11 completed Not Available Not Available Not Available dicyclomine 10 mg capsule 09/15 completed Not Available Not Available Not Available lamotrigine 100 mg tablet 11/22 completed Not Available Not Available Not Available glycopyrrol ate 2 mg tablet 11/25 completed Not Available Not Available Not Available diazepam 5 mg tablet 04/22 completed Not Available Not Available Not Available amoxicillin 875 mg-potassiu m clavulanate 125 mg tablet TAKE 1 TABLET BY MOUTH EVERY 12 HOURS FOR 10 DAYS 06/05 completed Not Available Not Available Not Available Vitamin B-12 1,000 mcg tablet Take 1 tablet every day by oral route. 05/13 completed Not Available Not Available Not Available amoxicillin 500 mg-potassiu m clavulanate 125 mg tablet active Not Available Not Available Not Available Ventolin HFA 90 mcg/actuati on aerosol inhaler 07/25 completed Not Available Not Available Not Available oxycodone 5 mg tablet active Not Available Not Available No t Available hydroxyzine pamoate 25 mg capsule TAKE 1 CAPSULE BY MOUTH THREE TIMES DAILY NEEDED FOR ANXIETY active Not Available Not Available No t Available neomycin-po lymyxin-hyd rocort 3.5 mg-10,000 unit/mL-1 % ear drops,susp INSTILL 4 DROPS IN AFFECTED EAR(S) THREE TIMES DAILY 11/24 completed Not Available Not Available Not Available Estrace 0.01% (0.1 mg/gram) vaginal cream 05/13 completed Not Available Not Available Not Available bupropion HCl SR 200 mg tablet,12 hr sustained-r elease active Not Available Not Available Not Available naloxone 0.4 mg/mL injection syringe active Not Available Not Available Not Available aripiprazol e 10 mg tablet TAKE 1 TABLET BY MOUTH DAILY 08/21 completed Not Available Not Available Not Available aripiprazol e 15 mg tablet TAKE 1 TABLET BY MOUTH ONCE A DAY FOR 2 DAYS 08/21 completed Not Available Not Available Not Available aripiprazol e 20 mg tablet TAKE 1 TABLET BY MOUTH DAILY active Not Available Not Available No t Available Premarin 0.625 mg/gram vaginal cream 07/25 completed Not Available Not Available Not Available bupropion HCl XL 300 mg 24 hr tablet, extended release TAKE 1 TABLET BY MOUTH EVERY DAY IN THE MORNING 06/05 completed Not Available Not Available Not Available bupropion HCl XL 150 mg 24 hr tablet, extended release TAKE 1 TABLET BY MOUTH EVERY MORNING 08/21 completed Not Available Not Available Not Available Multivitami n 50 Plus tablet Take 1 tablet every day by oral route. active Not Available Not Available No t Available BD SafetyGlide Insulin Syringe 1 mL 29 gauge x 1/2 11/25 completed Not Available Not Available Not Available Zyrtec 10 mg chewable tablet Chew 1 tablet every day by oral route. active Not Available Not Available No t Available mirtazapine 7.5 mg tablet TAKE 1/2 TO 1 TABLET BY MOUTH EVERY DAY AT BEDTIME FOR 12 DAYS 06/05 completed Not Available Not Available Not Available nitrofurant oin monohydrate /macrocryst als 100 mg capsule TAKE 1 CAPSULE BY MOUTH EVERY 12 HOURS FOR 5 DAYS 06/24 completed Not Available Not Available Not Available lactulose 10 gram/15 mL oral solution TAKE 15 ML BY MOUTH TWICE DAILY DIRECTED 06/05 completed Not Available Not Available Not Available solifenacin 5 mg tablet TAKE 1 TABLET BY MOUTH DAILY 06/05 completed Not Available Not Available Not Available solifenacin 10 mg tablet 06/05 completed Not Available Not Available Not Available eszopiclone 2 mg tablet TAKE 1 TABLET BY MOUTH DAILY AT BEDTIME FOR INSOMNIA. DO NOT TAKE WITH OPIOIDS OR ALCOHOL. 30 DAYS active Not Available Not Available No t Available eszopiclone 1 mg tablet TAKE 1 TABLET BY MOUTH DAILY AT BEDTIME FOR INSOMNIA. DO NOT TAKE WITH OPIOIDS OR ALCOHOL. 30 DAYS 08/17 completed Not Available Not Available Not Available ramelteon 8 mg tablet TAKE 1 TABLET BY MOUTH DAILY AT BEDTIME NEEDED FOR INSOMNIA 06/17 completed Not Available Not Available Not Available melatonin 01/24 completed Not Available Not Available Not Available One Daily take one daily 11/24 completed Not Available Not Available Not Available Stool Softener take one capsule twotimes a day. 09/15 completed Not Available Not Available Not Available Hair,Skin and Nails Take one gummie mock 11/24 completed Not Available Not Available Not Available BD Insulin Syringe Ultra-Fine 1 mL 30 gauge x 1/2 11/25 completed Not Available Not Available Not Available oxycodone 10 mg tablet 11/22 completed Not Available Not Available Not Available vitamin E (dl, acetate) 180 mg (400 unit) capsule Take 1 capsule every day by oral route. active Not Available Not Available No t Available lamotrigine ER 25 mg tablet,exte nded release 24 hr TAKE 1 TABLET BY MOUTH TWICE DAILY 08/21 completed Not Available Not Available Not Available GaviLyte-G 236 gram-22.74 gram-6.74 gram-5.86 gram oral solution 04/11 completed Not Available Not Available Not Available lamotrigine ER 50 mg tablet,exte nded release 24 hr TAKE 1 TABLET BY MOUTH TWICE DAILY 06/05 completed Not Available Not Available Not Available guanfacine ER 1 mg tablet,exte nded release 24 hr TAKE 1 TABLET BY MOUTH EVERY MORNING 06/05 completed Not Available Not Available Not Available Suprep Bowel Prep Kit 17.5 gram-3.13 gram-1.6 gram oral solution active Not Available Not Available Not Available Multi For Her take one tablet daily 11/24 completed Not Available Not Available Not Available Vitamin D3 50 mcg (2,000 unit) capsule Take 1 capsule every day by oral route. active Not Available Not Available No t Available lactulose 10 gram/15 mL (15 mL) oral solution take 30 mls by mouth twice a day 09/15 completed Not Available Not Available Not Available lactulose 20 gram/30 mL oral solution Take 30 mL twice a day by oral route. 05/13 completed Not Available Not Available Not Available Myrbetriq 25 mg tablet,exte nded release TAKE 1 TABLET BY MOUTH DAILY 06/17 completed Not Available Not Available Not Available EpiPen 2-[place] 0.3 mg/0.3 mL injection, auto-inject or 11/25 completed Not Available Not Available Not Available Linzess 290 mcg capsule TAKE 1 CAPSULE BY MOUTH EVERY MORNING 02/20 completed Not Available Not Available Not Available potassium chloride ER 20 mEq tablet,exte nded release TAKE 2 TABLETS BY MOUTH EVERY MORNING AND 1 TABLET EVERY EVENING active Not Available Not Available No t Available marijuana (cannabis) active Not Available Not Available N ot Available Movantik 25 mg tablet 09/15 completed Not Available Not Available Not Available naloxone 4 mg/actuatio n nasal spray Take 1 spray as needed by nasal route. 06/17 completed Not Available Not Available Not Available biotin 5,000 mcg disintegrat ing tablet Take 1 tablet every day by oral route. 05/13 completed Not Available Not Available Not Available Linzess 72 mcg capsule TAKE 1 CAPSULE BY MOUTH EVERY DAY 06/24 completed Not Available Not Available Not Available Vitals Date Recorded Body height Body mass index (BMI) Body weight Body temperature Heart rate Oxygen saturation Oxygen saturation in Arterial blood by Pulse oximetry Systolic blood pressure Diastolic blood pressure Provider Name and Address Organization Details Last Updated DateTime 3 167.64 cm 29.1 kg/m2 54203.6 3 g 97.5 [degF] 97 /min 98 % 98 % 119 mm[Hg] 78 mm[Hg] Lucinda Sharma [place] - [facility] 3 15:09:08 Date Recorded Body height Body mass index (BMI) Body weight Body temperature Heart rate Systolic blood pressure Diastolic blood pressure Provider Name and Address Organization Details Last Updated DateTime 4 167.64 cm 28.9 kg/m2 34360.0 3 g 97.5 [degF] 110 /min 100 mm[Hg] 66 mm[Hg] Genaro mack MA [place] - [facility] 4 14:04:20 Date Recorded Body height Body mass index (BMI) Body weight Oxygen saturation Oxygen saturation in Arterial blood by Pulse oximetry Systolic blood pressure Diastolic blood pressure Provider Name and Address Organization Details Last Updated DateTime 4 167.64 cm 29.3 kg/m2 26719.3 g 98 % 98 % 98 mm[Hg] 62 mm[Hg] Janeen Godfrey [place] - [facility] 4 15:54:10 Date Recorded Heart rate Provider Name an d Address Organization Details Last Updated DateTime 06/17/2024 96 /min Gulshan Macdonald MD Attn: Accounting,[address] [facility], [place], [address], [facility] 06/17/2024 16:07:42 Date Recorded Body height Body mass index (BMI) Body weight Oxygen saturation Oxygen saturation in Arterial blood by Pulse oximetry Heart rate Systolic blood pressure Diastolic blood pressure Provider Name and Address Organization Details Last Updated DateTime 4 167.64 cm 28.5 kg/m2 69983.1 3 g 98 % 98 % 95 /min 100 mm[Hg] 72 mm[Hg] Debbie Chavez MA [facility] 4 15:57:00 Date Recorded Body height Body mass index (BMI) Body weight Heart rate Oxygen saturation Oxygen saturation in Arterial blood by Pulse oximetry Systolic blood pressure Diastolic blood pressure Provider Name and Address Organization Details Last Updated DateTime 4 167.64 cm 28.6 kg/m2 50104.5 7 g 92 /min 97 % 97 % 116 mm[Hg] 68 mm[Hg] Debbie Chavez MA [facility] 4 09:35:07 Social History Question Answer Notes LastModified by Organizat ion Details LastModified Time Tobacco Smoking Status Former Smoker Juli Brothers MA [facility], [facility] 06/02/2020 15:50:37 Do You Or Have You Ever Used E-cigarettes Or Vape? Former User Of Electronic Cigarettes 6 Mg [email or web address] Information not available 06/04/2024 What Was The Date Of Your Most Recent Tobacco Screening? 09/15/2024 Information not available 09/15/2024 Do You Or Have You Ever Used Smokeless Tobacco? Never Used Smokeless Tobacco Information not available 04/22/2019 How Much Tobacco Do You Smoke? No [email or web address] Information not available 04/16/2018 Do You Use Any Illicit Or Recreational Drugs? No Information not available 06/17/2024 Has Tobacco Cessation Counseling Been Provided? No Information not available 06/17/2024 On What Date Was Tobacco Cessation Counseling Provided? 08/17/2024 Information not available 08/17/2024 How Many Years Have You Smoked Tobacco? 4 [email or web address] Information not available 09/27/2015 Do You Or Have You Ever Used Any Other Forms Of Tobacco Or Nicotine? No Information not available 11/24/2020 How Many Years Have You Used E-cigarettes Or Vape? 2 Information not available 11/24/2020 Sex: Unknown Functional Status None recorded. Mental Status None recorded. Family History Relationship Description Onset Age of this Age Resolved Age Notes LastModified by Organization Details LastModified Time Mother Malignant tumor of breast [place] [id number] Not available 11/08 14:25:42 Mother Malignant neoplasm of urinary bladder [facility] Not available 11/08 14:25:42 Mother Diabetes mellitus [facility] Not available 11/08 14:25:42 Mother Hypertensive disorder [facility] Not available 11/08 14:25:42 Mother Osteoporosis Not mala ilable 11/08/2015 14:25:42 Father Malignant tumor of lung [facility] Not available 11/08 14:25:42 Father Malignant tumor of pancreas Not available 11/08 14:25:42 Father Heart disease Not available 11/08 14:25:42 Father Glaucoma Not availab le 11/08/2015 14:25:42 Father Hypertensive disorder Not available 11/08 14:25:42 Medical History Condition Response Anxiety Disorder Y Kidney or Bladder Problems Y Depression Y GI Problems Y Allergies Y Gynecological HistoryNo gynecological history recorded. Obstetrics History GPAL:G 0 P 0 0 0 0 Immunizations Vaccine Type Date Status Note Provider Nam e and Address Organization Details Recorded Time SARS-COV-2 (COVID-19) vaccine, UNSPECIFIED 1 completed Not Available [facility] 10/20/2023 06:52:07 COVID-19, mRNA, LNP-S, PF, 30 mcg/0.3 mL dose 1 completed Not Available [facility] 06/20/2023 23:39:48 Tdap 2 completed SWATI Moody Attn: Accounting,[address] , [place], [address], [facility] 06/05/2022 13:11:07 Past Encounters Encounter ID Performer Location Encounter Start Date Encounter Closed Date Diagnosis/Indication Diagnosis SNOMED-CT Code Diagnosis ICD10 Code Diagnosis Note [id number] Pebbles [facility] ([address] [address] [address] [place] [address] 09/27/2015 10:25:13 09/28/2015 09:44:19 Adult health examination 595649863 Z00.00 [id number] Pebbles [facility] ([address]) [address] [place] [address] 11/08/2015 14:14:20 11/09/2015 13:28:03 Perforation of tympanic membrane 54498454 H72.93 Will treat with oral and otic abx. Will see back in 1 week for resolution . Should report to the ER for worsening ear pain, headache and/or fever. Continue warm, moist heat behind ear, use caution when bathing to avoid getting water in ears. [id number] [facility] ([address]) [address] [place] [address] 11/22/2016 11:27:47 11/23/2016 10:28:47 Adult health examination 491805381 Z00.00 Due for labs. Due for mammogram. Pap not needed with hysterecto my hx. Discussed healthy diet and exercise as tolerated. Screening mammography 24 628295 Z12.31 Chronic back pain 790258 002 M54.9 Will send for xray. Should discuss with pain management when she gets re-establi shed. Would benefit from PT but unsure of she could tolerate. [id number] MD [facility] ([address]) [address] [place] [address] 03/27/2017 10:50:11 03/27/2017 15:32:58 Hypokalemia 12314236 E87.6 Encouraged increase potassium in diet. May be cause of inverted T waves on EKG. Palpitations 47009444 R0 0.2 EKG was abnormal in [facility]gent[facility] and she had an elevated BNP with frequent feelings of chest tightness and palpitatio ns. Needs cardiology referral. If chest tightness or palpitatio ns worsen before cardiology appointmen t should be seen in the ER. [id number] [facility] ([address]) [address] [place] [address] 10/03/2017 13:48:43 10/11/2017 11:22:10 Accidental drug overdose 16882389 T50.901D -Encourage d her to picker and sorter load and unload Narcan script, may need PA or 340B-Shoul d f/u with pain medication provider for medication assessment . Sprain of right ankle 11 63664391 6346265 S93.491D -Continue RICE therapy-RO M exercises as tolerated [facility] ([address]) [address] [place] [address] 10/11/2017 11:53:51 10/15/2017 14:26:27 Incomplete emptying of urinary bladder 857024747 R39.14 -UA shows scant blood and protein, will send for culture.-I f culture negative will send to urology, may need cystoscopy . Sprain of right ankle 11 33603871 1047529 S93.491D -Continue RICE therapy-RO M exercises as tolerated [id number] [facility] ([address]) [address] [place] [address] 11/22/2017 13:57:09 11/25/2017 11:22:45 Otalgia 11642767 H92.03 -Encourage d to use steroid nasal spray daily-Warm compresses behind ears. Impacted cerumen 1014058 6 H61.21 -Flushed in office. [id number] [facility] ([address]) [address] [place] [address] 04/16/2018 14:11:15 04/23/2018 12:26:13 Constipation 43140466 K59.00 suspect chronic constipati on due to opioid usept does not want to try miralaxsta rt lactulose BID until stools softincrea se fiber and water in dietobtain XR abdomen if not improving in 2-3 daysf/u prn [id number] [facility] [place] [facility] ([address]) [address] [place] [address] 04/29/2018 12:17:50 05/15/2018 12:37:52 Abdominal pain 96192404 R10.9 -Continue close f/u with GI-Avoid constipati on with good bowel routine, high fiber diet and good water intake-Ret urn to the ER for worsening pain. [id number] [facility] [place] [facility] ([address]) [address] [place] [address] 01/19/2019 11:41:04 01/20/2019 09:59:16 Acute otitis media 6960479 H65.01 -treat with augmentin- increase water intake Perforatio n of tympanic membrane 68374185 H72.93 -refer to ENT [id number] Jackson Lawler [facility] [address] [place] [address] 01/26/2019 10:55:36 01/28/2019 11:34:46 Otitis externa 8898712 H60.93 keep ear dry Sensorineu ral hearing loss of bilateral ears 652531006 H90.3 Dysphagia 06712730 R13.1 0 [id number] SW[facility] [place] [facility] ([address]) [address] [facility] [place] [address] 02/04/2019 08:56:03 02/04/2019 14:46:36 Urinary incontinence 659990174 R32 Retention of urine 21663 4002 R33.9 -UA shows trace leukocytes , will send for culture Chronic low back pain 27 0565067 M54.5 -already establishe d with pain management , will not provide any additional medication s for her back pain.-refe r to PT [id number] [facility] [place] [facility] ([facility]) [address] [place] [address] 04/22/2019 10:11:12 04/23/2019 16:05:33 Dizziness 656569819 R42 -BS normal low in the office-adm its to only eating once daily, encouraged to increase calorie intake throughout the day-on multiple agents that cause dizziness- BP normal Bipolar disorder 8285596 4 F31.9 -PHQ9 positive, est at [place] for treatment [id number] Jackson Lawler MD [facility] [address] [place] [address] 05/27/2019 10:35:22 06/08/2019 12:23:50 Dysphagia 07973745 R13.10 ba swallow normal follow back with neurology [id number] [facility] ([address]) [address] [place] [address] 11/26/2019 09:53:23 11/27/2019 09:42:06 Chronic low back pain 807948259 M54.5 -discussed with Anh that she has pain management for her back pain and that she needs to continue treatment with them-will not increase the tizanidine dose due to her clonazepam use for her mental health Surgical i ncision wound of skin 9857962034 00 R23.8 -appears to be healing appropriat nany Bipolar disorder 5509102 4 F31.9 -PHQ9 positive, est at [place] for treatment [id number] [facility] ([address]) [address] [place] [address] 02/09/2020 17:15:21 02/10/2020 12:12:31 Headache 77728527 R51 -tylenol as needed for pain-discu ssed other ways to combat headaches, including rest, dark room, cool cloth on neck-shoul d report back to ER for worst headache ever feeling or any other neurologic al deficits. Dizziness 897331458 R42 -BS normal low-encour aged nutrition and appropriat e water intake-on multiple agents that cause dizziness- should change positions slowly [id number] NOAH MAK [address] [place] [address] 02/11/2020 09:24:29 02/12/2020 08:48:07 Suspected COVID-19 374870685 Z03.627 [id number] [facility] ([address]) [address] [place] [address] 04/11/2020 12:37:40 04/12/2020 11:23:28 Xerostomia 31961960 R68.2 -suspect recent addition of linzess is causing her symptoms.- frequently on abx from her UTI, may be causing the metallic taste in her mouth-can f/u with GI to see if there is any other medication s she can take that will not cause this side effect Atypical facial pain 713 47262 G50.1 -can try to take the muscle relaxer at night to see if this helps her pain-has refills of medication available- f/u if no change or worsening [id number] SWATI Moody ([address]) [address] [place] [address] 06/02/2020 15:47:48 06/14/2020 22:20:43 Bipolar disorder 84133089 F31.9 -f/u'd with psych this morning-fe eling better with current medication adjustment s Chronic low back pain 27 8710729 M54.5 -est with pain management -will not increase the tizanidine dose due to her clonazepam use for her mental health [id number] [facility] ([address]) [address] [place] [address] 07/04/2020 16:46:31 07/05/2020 10:04:20 Lymphedema of lower extremity 162538694 I89.0 -wearing compressio n stockings, getting relief while they are on-can try short course of furosemide -can try to get into lymphedema clinic at [facility] [facility] Serum crea tinine above reference range [id number] R79.89 -send to nephrology for raising creatinine and lowering GFR-can not r/o reason for swelling [id number] Jackson Lawler MD [facility] [address] [place] [address] 08/04/2020 13:37:08 08/05/2020 11:19:11 Acute sinusitis 14165924 J01.90 Dermatitis of external ear 856098315 H60.93 use otc steroid cream [id number] MD Radha Noonan e FP ([address]) [address] [place] [address] 09/21/2020 14:44:49 09/28/2020 10:53:24 Smoker 87605383 F17.200 -vaping, not interested in quitting at this time Serum crea tinine above reference range 586186806 R79.89 -open referral to nephrology for raising creatinine and lowering GFR-can not r/o reason for swelling-e ncouraged to call urology for symptoms with current stones-com plete furosemide as ordered from the ER-check UA to r/o UTI with flank pain, send for renal US-back to ER for any worsening symptoms, difficulty with urination Bipolar disorder 7132194 4 F31.9 -est with psych-feel ing worse with current chronic health conditions and pain-will talk to her psychiatri st today Obesity 001481389 Z68.31 -check A1C Chronic low back pain 27 3389613 M54.5 -est with pain management -can cont tizanidine at current dose [id number] Jackson Lawler MD [facility] [address] [place] [address] 09/22/2020 14:55:22 09/22/2020 16:09:08 Otitis externa 1386389 H60.93 keep ear dry [id number] Pebbles Salmeron, [facility] FP ([address]) [address] [place] [address] 2 11/24/2020 16:45:16 12/07/2020 11:15:45 Liver enzymes level above reference range 553575755 R74.8 -being followed by Dr. Ann office -encourage d low fat diet Edema of l ower extremity 659371971 R60.0 -no resolution with lasix -ok to resume PT to see if this helps with weight, mobility and swelling [id number] JENY [facility] FP ([address]) [address] [place] [address] 2 03/03/2021 16:01:17 03/10/2021 08:52:54 Lymphedema 688498466 I89.0 -lasix and K increase 40/20 respective ly-Continu e PT as previously prescribed (3x/week)- pending labs with renal Dr. per pt on Sat. results to be sent to PCP office.-fu in 1 mo.-labs pending. will check renal fx, poss. of CHF and electrolyt es.-pt to discuss lasix increase with renal dr. >pt called office following renal appt and stated renal dr said okay to proceed with increase in lasix dosing-ris ks vs. benefit of increasing lasix dose discussed with patient. questions answered and encouraged pt states understand ing. Right Achi lles tendinitis [id number] 76056 M76.61 celestone and toradol injection im per ma per voRICE encouraged fu in 1 mo prnPT to be considered if lacking resolution Night sweats 27972723 R6 1 other labs up-to-date .pt reports total hysterecto my 13 years agotrazado ne dc while in hospital. may cause night sweats to resolve. will continue to monitor. Screening mammography 24 885113 Z12.31 pt reports last mammogram approx. 2-3 years agopending . will tailor treatment accordingl y upon receipt of labs [id number] SWATI Moody [facility] ([address]) [address] [place] [address] 04/19/2021 15:12:45 04/20/2021 11:43:55 Bilateral plantar fasciitis [id number] 8347387 M72.2 -refer to podiatry-e ncouraged stretching and rolling foot on iced water bottle for pain relief Restless legs 28506399 G 25.81 -stable, needs refill Chronic low back pain 27 9220899 M54.5 -est with pain management -can cont cyclobenza nadira at current dose [id number] SWATI Moody [facility] ([address]) [address] [place] [address] 08/21/2021 10:27:39 08/25/2021 12:35:30 Abdominal bloating 133869316 R14.0 -est with GI- will see them on Saturday-no signs of ascites on last CT scan Flank pain 340828440 R10 .9 -encourage d f/u with urology-ca n give very short term tramadol for pain relief. Understand s her pain is going to be harder to treat with her past hx of heavy opioid pain meds for low back pain-may need to consider pain management referral [id number] SWATI Moody [place] [facility] ([facility] [address]) [address] [place] [address] 01/24/2022 09:46:59 01/25/2022 09:13:26 Upper respiratory infection 99083308 J06.9 -rapid covid negative-w ill treat for sinusitis with length of symptoms-p ush fluids-can try sinus rinses Daytime somnolence 53875 58390 00 R40.0 -on multiple medication s for sleep-need s sleep med referral Chronic sinusitis 077615 00 J32.9 -cont nasal steroid Obesity 906258352 E66.9 -check A1C [id number] SWATI Moody FP ([facility]) [address] [place] [address] 02/15/2022 15:12:05 02/20/2022 14:42:33 Acute otitis media 5147460 H65.01 -treat with cefuroxime since she was recently on augmentin- increase water intake-if not better will need to see ENT Cough 78887113 R05.1 -cough syrup as needed-can also drink hot tea with lemon and honey-warm salt water gargles and lozenges as needed [id number] SWATI Moody [place] [facility] ([facility] [address]) [address] [place] [address] 05/23/2022 16:30:29 06/06/2022 08:34:58 Immunization status unknown 711494075 Z76.89 Tuberculos is screening 764407929 Z11.1 Active or passive immunization 349039302 Z23 History an d physical examination, pre-employment 361786282 Z02.1 -no red falgs to exclude from employment -update immunizati ons and check titers. [id number] J[facility]Y [facility] [place] [facility] ([facility]) [address] [place] [address] 09/14/2022 15:10:20 09/18/2022 11:02:08 Diarrhea 46650812 R19.7 hydration and rest encouraged fu as neededrepo rt to ED if s/s worsenhand hygeine encouraged use immodium in marylou of Pepto-Bism ol for better results Lower abdominal pain 545 99813 R10.30 -WBC wnl labs as of 09/13/2022 per [facility] (pain management for r/o spinal sepsis per pt)-imagin g pending. will tailor treatment accordingl y upon receipt.-f u as needed-rep ort to ED if s/s worsen-H and H wnl as well considerin g dark colored stool-pt denies using pepto-bism ol, Fe supplement s or the like prior to experienci ng dark colored diarrhea s/s-last colonoscop y per [facility] 06/2020. Pt serves as poor historian. Chronic back pain 015557 002 G89.29 -medicatio n refill following trial of baclofen dt cyclobenza nadira ineffectiv e in managing chronic spinal pain-RICE encouraged -fu w/ PCP/pain management as needed-rep ort to ED if s/s worsen Diverticul osis of colon 691443462 K57.30 informatio n and discussion provided regarding dx; as pt reports she was unaware of dx [id number] SWATI Moody [facility] ([address]) [address] [place] [address] 11/05/2022 17:16:01 11/09/2022 13:43:19 Acute pharyngitis 037852862 J02.9 -rapid neg, send cx-support robert care with warm liquids and tylenol for pain Overweight 510794041 E66 .3 Nicotine-f illed electronic cigarette user 163614465 Z72.89 -vaping, not interested in quitting at this time [id number] SWATI Moody [facility] ([facility]) [address] [place] [address] 05/02/2023 11:38:13 05/18/2023 00:05:12 Acute urinary tract infection 196621315 N39.0 -will treat with macrobid-w ill need urology referral if she gets another UTI-push fluids-f/u if symptoms do not improve in 2-3 days Screening mammography 24 991161 Z12.31 Osteoarthritis 484102876 M19.90 -stable on NSAIDs-use caution with CKD Overweight 182217778 E66 .3 [id number] SWATI Moody [place] [facility] ([facility] [address]) [address] [place] [address] 07/22/2023 15:38:17 07/24/2023 11:57:25 Low back strain 567666626 S39.012A -getting better, MRI not warranted at this time-to ER for any saddle anesthesia or loss of bowel or bladder function-l ifting restrictio n for 1 week-see back in 1 week for reassessme nt Overweight 078386859 E66 .3 [id number] SWATI Moody [place] [facility] ([facility]) [address] [place] [address] 07/31/2023 15:01:20 08/02/2023 12:27:35 Chronic sinusitis 93410245 J32.9 -stable, cont nasal steroid Overweight 804167095 E66 .3 Chronic low back pain 27 1693305 M54.50 -est with pain management , on chronic opioids and muscle relaxers-w ork note provided to increase lifting weight-f/u as needed, cont close f/u with pain management [id number] SWATI Moody [place] [facility] ([facility]) [address] [place] [address] 06/04/2024 13:53:14 06/08/2024 13:56:28 Electrocardiogram abnormal 671200654 R94.31 -refer to cardiology for clearance Overweight 945696188 E66 .3 [id number] Gulshan Macdonald MD [facility] [place] [facility] [address] [place] [address] 06/17/2024 15:33:34 06/18/2024 09:57:05 Electrocardiogram abnormal 758811635 R94.31 Preoperati ve cardiovascular examination 118914117 Z01.810 Chest pain 55291931 R07. 9 Hyperlipid emia screening 527714857 Z13.261 [id number] Gulshan Macdonald MD [facility] [place] [facility] [address] [place] [address] 08/17/2024 15:46:02 08/21/2024 08:19:07 Electrocardiogram abnormal 616971340 R94.31 Preoperati ve cardiovascular examination 909693544 Z01.810 Chest pain 83133775 R07. 9 Cardiovasc ular stress test abnormal 657202532 R94.39 Hyperlipid emia screening 539632267 Z13.995 [id number] Gulshan Macdonald MD [facility] [place] [facility] [address] [place] [address] 09/15/2024 09:27:28 09/17/2024 10:54:41 Electrocardiogram abnormal 964009249 R94.31 Preoperati ve cardiovascular examination 788587788 Z01.810 Chest pain 90293677 R07. 9 Cardiovasc ular stress test abnormal 708116943 R94.39 Hyperlipid emia screening 399931616 Z13.220 Health Concerns Section Related Observation LastModified by Organization Detai ls LastModified Time None Recorded Concern Status LastModified by Organization Details LastModified Time None Recorded Advance Directives Directive None Recorded Payers Encounter Date Sequence Insurance Name Policy Number Policy Tinoco Covered Member ID Tinoco Member ID Guarantor Name 07/31/2023 2 [place] OR MEDICARE REPLACEMENT PRIMARY) Anh Martino [id number] Anh Martino 07/31/2023 1 [facility] (MEDICARE REPLACEMENT/AD VANTAGE - HMO) [id number] Anh Martino [id number] Anh Martino 06/04/2024 2 [place]PLACEMENT PRIMARY) Anh Martino [id number] Anh Martino 06/04/2024 1 [facility] (MEDICARE REPLACEMENT/AD VANTAGE - HMO) [id number] Anh Martino [id number] Anh Martino 06/17/2024 2 [place]PLACEMENT PRIMARY) Anh Martino [id number] Anh Martino 06/17/2024 1 [facility] (MEDICARE REPLACEMENT/AD VANTAGE - HMO) [id number] Anh Martino [id number] Anh Martino 08/17/2024 2 [place]IC[place] REPLACEMENT PRIMARY) Anh Martino [id number] Anh Martino 08/17/2024 1 [facility] (MEDICARE REPLACEMENT/AD VANTAGE - HMO) [id number] Anh Martino [id number] Anh Martino 09/15/2024 2 [place] OR MEDICARE REPLACEMENT PRIMARY) Anh Martino [id number] Anh Martino 09/15/2024 1 [facility] (MEDICARE REPLACEMENT/AD VANTAGE - HMO) [id number] Anh Martino [id number] Anh Martino Notes Date Note Type Note Provider Name and Address Organization Details Recorded Time 07/31/2023 text/html Anh is a 52 y /o F here for a f/u on back pain. She is currently taking cyclobenzaprine and hydrocodone with some relief. She is also using a heating pad. She reports her pain is at a 6/10 typically. She sees pain management once a month and has an appointment later this evening. She reports having allergies and would like a refill on her fluticasone nasal spray. She needs a work note, thinks she could start lifting up to 15 pounds. SWATI Moody Attn: [address] [place], [address], [facility] 07/31/2023 17:21:25 06/04/2024 text/html Anh is here t [place] needing cardiac clearance for her back surgery. She had an abnormal EKG in pre-testing. She denies any chest pain, palpitations or shortness of breath. SWATI Moody Attn: Accounting[address] [facility], [place], [address], [facility] 06/04/2024 22:52:11 06/17/2024 text/html 53-year-old fema le who has no history of coronary artery disease she is planning to have a back surgery. She had EKG which shows possible old inferior myocardial infarction. She has anterior T-wave abnormality suggestive of ischemia. Last night she had 1 episode of chest pain which lasted for 45 minutes. She had no other associated symptoms of nausea vomiting diaphoresis. She has no previous history of coronary artery disease, hypertension or diabetes. Father has coronary artery disease diagnosed in his early 50s. I was asked to see her for preop evaluation as she is planning to have back surgery. LABS:06/15/23:glucose 80, BUN 27, creatinine 1.05, sodium 143, K+ 4.1, eGFR 64 Gulshan Macdonald MD Attn: Accounting[address] [place], [address], [facility] 06/17/2024 16:18:02 08/17/2024 text/html 53-year-old fema willie who has no history of coronary artery disease she is planning to have a back surgery. She had EKG which shows possible old inferior myocardial infarction. She has anterior T-wave abnormality suggestive of ischemia. Last night she had 1 episode of chest pain which lasted for 45 minutes. She had no other associated symptoms of nausea vomiting diaphoresis. She has no previous history of coronary artery disease, hypertension or diabetes. Father has coronary artery disease diagnosed in his early 50s. I was asked to see her for preop evaluation as she is planning to have back surgery. August 17, 2024:53-year-old female who has planning to have back surgery who was recently seen in ER for chest pain. At that time after initial evaluation she was discharged to home. She also had a Lexiscan Myoview at [facility] on August 03, 2024 which was suggestive of mild partial reversible perfusion defect involving proximal to mid anterior wall. LABS:06/15/23:glucose 80, BUN 27, creatinine 1.05, sodium 143, K+ 4.1, eGFR 64 CARDIAC TESTING:LEXISCAN STRESS 08/03/24:No chest pain. No ischemic EKG changes. Nuclear images are pending which will be reported separately.Myoview scan: Mild partial reversible ischemia involving the proximal to mid anterior wall. Normal left wall motion. Calculated ejection fraction is 74%. Gulshan Macdonald MD Attn: Accounting[address] [place], [address], [facility] 08/17/2024 16:21:24 09/15/2024 text/html 53-year-old fema willie who has no history of coronary artery disease she is planning to have a back surgery. She had EKG which shows possible old inferior myocardial infarction. She has anterior T-wave abnormality suggestive of ischemia. Last night she had 1 episode of chest pain which lasted for 45 minutes. She had no other associated symptoms of nausea vomiting diaphoresis. She has no previous history of coronary artery disease, hypertension or diabetes. Father has coronary artery disease diagnosed in his early 50s. I was asked to see her for preop evaluation as she is planning to have back surgery. August 17, 2024:53-year-old female who has planning to have back surgery who was recently seen in ER for chest pain. At that time after initial evaluation she was discharged to home. She also had a Lexiscan Myoview at [facility] on August 03, 2024 which was suggestive of mild partial reversible perfusion defect involving proximal to mid anterior wall. September 15, 2024:53-year-old female who is planning to have back surgery had a stress test which was reported for perfusion defect in anterior wall. She had coronary angiography which shows normal coronaries. Today she denies complaints of chest pain, shortness of breath, orthopnea and paroxysmal nocturnal dyspnea. LABS:09/14/24 cholesterol 231, triglycerides 246, HDL 61, LDL :glucose 80, BUN 27, creatinine 1.05, sodium 143, K+ 4.1, eGFR 64 CARDIAC TESTING:CARDIAC CATH 09/10/24:No significant coronary artery disease. LEXISCAN STRESS 08/03/24:No chest pain. No ischemic EKG changes. Nuclear images are pending which will be reported separately. Mild partial reversible ischemia involving the proximal to mid anterior wall. Normal left wall motion. Calculated ejection fraction is 74%. Gulshan Macdonald MD Attn: Accounting[address] [facility], [place], [address], [facility] 09/15/2024 10:27:04 OBGyn Episode No OBEpisode recorded.
--- OUTSIDE RECORDS SUMMARY | 2024-11-19 16:02 | XMS_ITS | Encounter Summary ---
Author Organization [employer] Address [address] [place] [address] Care Team Providers Care Hemstitching Machine Operator Name Role Phone Charlie Mera MD Primary Care Provider Unavailab le Encounter Details Date Type Department Care Team (Late st Contact Info) Description 06/18/2005 Outpatient Historical [facility] Maternal and Ground Floor [address] [place] [address] Jackson Theodore MD [address] [facility] [place] [address] Social History Tobacco Use Types Packs/Day Years Used Date Smoking Tobacco: Never Assessed Comments Unknown Sex and Gender Information Value Date Recorded Sex Assigned at Not on file Legal 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
--- OUTSIDE RECORDS SUMMARY | 2024-11-19 16:02 | XMS_ITS | Encounter Summary ---
Author Organization [facility] Address 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
--- OUTSIDE RECORDS SUMMARY | 2024-11-19 16:02 | XMS_ITS | Encounter Summary ---
Author Organization [facility] Address [address] [place] [address] Care Team Providers Care Belt Brander Name Role Phone Charlie Mera MD Primary Care Provider Unavailab le Encounter Details Date Type Department Care Team (Late st Contact Info) Description 08/17/2004 Outpatient Historical [facility] Maternal and Ground Floor [address] [place] [address] Gwendolyn Mcdonnell MD [address] [place] [address] Social History Tobacco Use Types Packs/Day Years Used Date Smoking Tobacco: Never Assessed Comments Unknown Sex and Gender Information Value Date Recorded Sex Assigned at Not on file Legal Sex Female 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
--- OUTSIDE RECORDS SUMMARY | 2024-11-19 16:02 | XMS_ITS | Encounter Summary ---
Author Organization [employer] Address 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
--- OUTSIDE RECORDS SUMMARY | 2024-11-19 16:02 | XMS_ITS | Encounter Summary ---
Author Organization [facility] Address [address] [place] [address] Care Team Providers Care Senior Outside Sales Representative Name Role Phone Charlie Mera MD Primary Care Provider Unavailab le Encounter Details Date Type Department Care Team (Late st Contact Info) Description 09/04/2004 Outpatient Historical [facility] Maternal and Ground Floor [address] [place] [address] Gwendolyn Mcdonnell MD [address] [place] [address] Social History Tobacco Use Types Packs/Day Years Used Date Smoking Tobacco: Never Assessed Comments Unknown Sex and Gender Information Value Date Recorded Sex Assigned at Not on file Legal Sex Female 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
--- OUTSIDE RECORDS SUMMARY | 2024-11-19 16:02 | XMS_ITS | Encounter Summary ---
Author Organization [employer] Address [address] [place] [address] Care Team Providers Care Maintenance Mechanic Name Role Phone Charlie Mera MD Primary Care Provider Unavailab le Encounter Details Date Type Department Care Team (Late st Contact Info) Description 08/14/2004 Outpatient Historical [facility] Maternal and Ground Floor [address] [place] [address] Сергей Carbajal MD [address] [place] [address] Social History Tobacco Use Types Packs/Day Years Used Date Smoking Tobacco: Never Assessed Comments Unknown Sex and Gender Information Value Date Recorded Sex Assigned at Not on file Legal Sex Female 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
--- OUTSIDE RECORDS SUMMARY | 2024-11-19 16:02 | XMS_ITS | Encounter Summary ---
Author [facility] Address [address] [place] [address] Care Team Providers Care Angular Developer Name Role Phone Charlie Mera MD Primary Care Provider Unavailab le Encounter Details Date Type Department Care Team (Late st Contact Info) Description 08/24/2004 Outpatient Historical [facility] Maternal and Ground Floor [address] [place] [address] Gwendolyn Mcdonnell MD [address] [place] [address] Social History Tobacco Use Types Packs/Day Years Used Date Smoking Tobacco: Never Assessed Comments Unknown Sex and Gender Information Value Date Recorded Sex Assigned at Not on file Legal Sex Female 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
--- OUTSIDE RECORDS SUMMARY | 2024-11-19 16:02 | XMS_ITS | Encounter Summary ---
Author Organization [employer] Address [address] [place] [address] Care Team Providers Care Research Analyst Name Role Phone Charlie Mera MD Primary Care Provider Unavailab le Encounter Details Date Type Department Care Team (Late st Contact Info) Description 07/26/2004 Outpatient Historical [facility] 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
--- OUTSIDE RECORDS SUMMARY | 2024-11-19 16:02 | XMS_ITS | Encounter Summary ---
Author Organization [employer] Address 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
--- OUTSIDE RECORDS SUMMARY | 2024-11-19 16:02 | XMS_ITS | Encounter Summary ---
Author Organization [facility] Address [address] [place] [address] Care Team Providers Care Hole Digger Operator Name Role Phone Charlie Mera MD Primary Care Provider Unavailab le Encounter Details Date Type Department Care Team (Late st Contact Info) Description 05/15/[address] 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
--- OUTSIDE RECORDS SUMMARY | 2024-11-19 16:02 | XMS_ITS | Encounter Summary ---
Author Organization [facility] Address [address] [place] [address] Care Team Providers Care Tnt Line Supervisor Name Role Phone Charlie Mera MD Primary Care Provider Unavailab le Encounter Details Date Type Department Care Team (Late st Contact Info) Description 09/05/2004 Outpatient Historical [facility] [address] [place] [address] Gunner Alvarez MD [address] [facility] [address] [facility] [place] [address] Social History Tobacco Use Types Packs/Day Years Used Date Smoking Tobacco: Never Assessed Comments Unknown Sex and Gender Information Value Date Recorded Sex Assigned at Not on file Legal Sex Female 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
--- OUTSIDE RECORDS SUMMARY | 2024-11-19 16:03 | XMS_ITS | Encounter Summary ---
Author Organization [facility] Address 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
--- OUTSIDE RECORDS SUMMARY | 2024-11-19 16:03 | XMS_ITS | Patient Health Summary ---
Author Organization [facility] Address [address] [place] [address] Care Team Providers Care Drill Sharpener Name Role Phone Ute Betancourt [facility] COACH Primary Care Provider Note from [facility],non-owned Affiliates and Associated Physician Practices is amultiple site organization consisting of ambulatory clinics and hospital sitesin [place], [place], [place] and [place]. This disclosure is being madepursuant to the Care Everywhere program and may not contain all information available regarding this patient. Last updated 18.[facility] Allergies * Sulfa Drugs(Anaphylaxis) -High Criticality Medications * Be aware that medications may not be up to date on this document. Alwaysverify current medications with the patient. * linaCLOtide (LINZESS) 290 MCG capsule Take 290 mcg by mouth daily before breakfast Take on an empty stomach at least 30 minutes prior to first meal of the day. Reasons: Chronic Constipation of Unknown Cause * mirtazapine (REMERON) 30 MG tablet(Started 05/25/2020) Take 1 tablet by mouth at bedtime Reasons: Mood Disorder 1 refill by 05/25/2021 * pantoprazole EC (PROTONIX) 40 MG tablet(Started 05/26/2020) Take 1 tablet by mouth once daily Reasons: Excess Stomach Secretions 1 refill by 05/25/2021 * furosemide (LASIX) 40 MG tablet(Started 02/01/2021) 40 mg once daily * glycopyrrolate (ROBINUL) 1 MG tablet Take 1 mg by mouth once daily as needed * hydrOXYzine hcl (ATARAX) 25 MG tablet(Started 11/17/2020) Take 25 mg by mouth every 6 hours as needed * potassium chloride ER (KLOR-CON M) 20 MEQ tablet(Started 02/14/2021) 20 mEq 3 times daily * rOPINIRole (REQUIP) 0.5 MG tablet(Started 01/25/2021) TAKE 1 TABLET BY MOUTH EVERY DAY AT BEDTIME * sucralfate (CARAFATE) 1 GM tablet Take 1 g by mouth as needed * Melatonin 10 MG Take 10 mg by mouth once daily * biotin 5 MG tablet Take 5,000 mcg by mouth once daily * folic acid 400 MCG tablet Take 400 mcg by mouth once daily * Turmeric Curcumin 500 MG Take 3 tablets by mouth 2 times daily * vitamin D, cholecalciferol, 50 MCG (2000 UT) tablet Take 2,000 Units by mouth once daily * Probiotic Product (PROBIOTIC DAILY PO) Take by mouth once daily * topiramate (TOPAMAX) 100 MG tablet Take 150 mg by mouth 2 times daily * citalopram (CELEXA) 40 MG tablet Take 40 mg by mouth once daily * Pyridoxine HCl (VITAMIN B6 PO) Take by mouth once daily * vitamin E (TOCOPHERYL) 1000 UNIT capsule Take 1,000 Units by mouth once daily * clonazePAM (KLONOPIN) 0.5 MG tablet(Started 01/12/2022) Take 0.5 mg three times daily for 4 (four) days, then 0.5 mg twice daily for 4 (four) days and 0.5 mg daily for 4 (four) days and stop it. * guanFACINE CR 24hr (Intuniv) 1 MG tablet(Started 10/29/2022) Take 1 (one) tablet by mouth every morning Reasons: tics 4 refills by 10/29/2023 Active Problems Problem Noted Date Diagnosed Date Elevated liver enzymes 09/29/2021 Chronic kidney disease 08/30/2021 Fatty liver 11/28/2020 Bipolar affective disorder, current episode mixe d 05/16/2020 Bipolar disorder 03/27/2012 Myoclonus 06/07/2010 Immunizations * Covid Pfizer primary monovalent 12+ yr 0.3mL Purple cap(Given 04/19/2021, 03/29/2021) Social History Tobacco Use Types Packs/Day Years Used Date Smoking Tobacco: Former Cigarettes Q uit: 04/01/2014 Smokeless Tobacco: Never Tobacco Cessation:Counseling Given: Yes Alcohol Use Standard Drinks/Week Comments Not Currently 0 (1 standard drink = 0.6 oz pur e alcohol) OCCASIONAL, 1-2/YEAR Sex and Gender Information Value Date Recorded Sex Assigned at Not on file Gender Identity Not on file Sexual Orientation Not on file Last Filed Vital Signs Vital Sign Reading Time Taken Comments Blood Pressure 122/77 12/14/2021 2:50 PM CDT Pulse 94 12/14/2021 2:50 PM CDT Temperature 36.2 C (97.1 F) 12/14/2021 2:50 PM CDT Respiratory Rate 18 12/14/2021 2:50 PM CDT Oxygen Saturation 95% 12/14/2021 2:50 PM CDT Inhaled Oxygen Concentration - - Weight 84.9 kg (187 lb 3.2 oz) 12/14/2021 2:29 P M CDT Height 167.6 cm (5' 6 ) 09/29/2021 10:46 AM GROUND SERVICE EQUIPMENT MECHANIC Body Mass Index 30.21 09/29/2021 10:46 AM GROUND SERVICE EQUIPMENT MECHANIC Procedures * CT LIVER ELASTOGRAPHY(Performed 12/14/2021) Performed for Elevated liver enzymes * TRANSFERRIN(Performed 09/29/2021) Performed for Elevated liver enzymes * SMOOTH MUSCLE ANTIBODY W REFLEX TITER(Performed 09/29/2021) Performed for Elevated liver enzymes * PT-INR [facility](Performed 09/29/2021) Performed for Elevated liver enzymes * MICROSOMAL ANTIBODY LIVER/KIDNEY(Performed 09/29/2021) Performed for Elevated liver enzymes * IRON BLOOD(Performed 09/29/2021) Performed for Elevated liver enzymes * IGG BLOOD(Performed 09/29/2021) Performed for Elevated liver enzymes * HEPATITIS C ANTIBODY(Performed 09/29/2021) Performed for Elevated liver enzymes * HEPATITIS B SURFACE ANTIGEN W RFLX CONFIRMATION(Performed 09/29/2021) Performed for Elevated liver enzymes * HEPATITIS B SURFACE ANTIBODY(Performed 09/29/2021) Performed for Elevated liver enzymes * HEPATITIS B CORE ANTIBODY TOTAL(Performed 09/29/2021) Performed for Elevated liver enzymes * GGT(Performed 09/29/2021) Performed for Elevated liver enzymes * FERRITIN(Performed 09/29/2021) Performed for Elevated liver enzymes * CERULOPLASMIN(Performed 09/29/2021) Performed for Elevated liver enzymes * CARRILLO BLOOD SCREEN W/REFLEX TITER(Performed 09/29/2021) Performed for Elevated liver enzymes * JZZJW-0-JPZODHRJQMG BLOOD PHENOTYPING PANEL(Performed 09/29/2021) Performed for Elevated liver enzymes * MITOCHONDRIAL ANTIBODY SCREEN(Performed 09/29/2021) Performed for Elevated liver enzymes * AIRYU-7-KDOAVUCWEDH BLOOD(Performed 09/29/2021) Performed for Elevated liver enzymes * COMPREHENSIVE METABOLIC PANEL(Performed 05/21/2020) * CBC W/O DIFFERENTIAL(Performed 05/21/2020) * HEMOGLOBIN A1C(Performed 05/21/2020) * LIPID PROFILE(Performed 05/21/2020) * EKG 12-LEAD(Performed 05/20/2020) Performed for Abdominal pain, generalized * XR ABDOMEN KUB(Performed 05/20/2020) Performed for Abdominal pain, generalized * URINE MICROSCOPIC ONLY REFLEX TO CULTURE(Performed 05/20/2020) * URINE MICROSCOPIC ONLY(Performed 05/20/2020) * URINALYSIS REFLEX TO MICROSCOPIC NO CULTURE(Performed 05/20/2020) * URINALYSIS REFLEX MICROSCOPIC REFLEX CULTURE(Performed 05/20/2020) * CULTURE URINE(Performed 05/20/2020) * URINE DRUG SCREEN IMMUNOASSAY(Performed 05/18/2020) * HCG URINE QUALITATIVE(Performed 05/18/2020) * TSH REFLEX FREE T4(Performed 05/18/2020) * SYPHILIS ANTIBODY CASCADING REFLEX(Performed 05/18/2020) * LIPID PROFILE(Performed 05/18/2020) * HEMOGLOBIN A1C(Performed 05/18/2020) * COMPREHENSIVE METABOLIC PANEL(Performed 05/18/2020) * CBC W AUTO DIFFERENTIAL(Performed 05/18/2020) * GROSS + MICRO EXAM(Performed 03/23/2003) Results * CT LIVER ELASTOGRAPHY (12/14/2021 2:06 PM CDT) Narrative Mike Sargent MD - 12/14/2021 2:06 PM CDT Mike Sargent MD 12/14/2021 5:25 PM Diagnosis: HAKAN RN verified patient not , patient has an electronic stimulator in her left lower back. RN gave patient handout from Dr. Sargent and patient is agreeable to proceed with test. Patient verbalized understanding. Patient ate [employer] 2 hours ago. Procedure explained and consent signed. Date of Exam: 12/14/2021 Liver Stiffness: (LSM, kPa) median: 5.9 IQR (interquartile range): 1.8 IQR/Median% (ideally < 30%): 31 CAP (controlled attenuation parameter): 278 Technical Difficulty: None Ordering Provider: Abby Zuniga NP Phone Fax Fibroscan interpretation: I have personally reviewed the Fibroscan report and associated tracings. The calculated Liver Stiffness Measurement (LSM, kPa) indicates that: The probability of advanced liver fibrosis is: low. The loss of ultrasound signal, (controlled attenuation parameter, CAP [dB/m]), indicates that the probability of hepatic steatosis is: moderate. Mike Sargent MD The following criteria are used to indicate the probability of advanced (stage 3-4) fibrosis: < 7.0 kPa: low 7.0-8.9 kPa: low to moderate 9.0-14.9 kPa: moderate 15-20 kPa: high > 20 kPa: very high Liver stiffness > 20 kPa is also associated with a high probability of complications of portal hypertension including varices and ascites. Liver stiffness > 50 kPa is associated with a high risk of variceal bleeding. These interpretations are based on the following published data: Nery PJ, Ene M, Ruth M, et al. Accuracy of FibroScan controlled attenuation parameter and liver stiffness measurement in assessing steatosis and fibrosis in patients with nonalcoholic fatty liver disease. Gastroenterology 2019;156:2847-3992. Sheridan MS, Ngoc R, Van Natta ML, et al. Vibration-controlled transient elastography to assess fibrosis and steatosis in patients with nonalcoholic fatty liver disease. Clin Gastroenterol Hepatol 2019;17:156-163. Note: 1. Fibroscan cannot reliably identify earlier stages of fibrosis (ie distinguish F0 from F1 and F2) and thus a histologic stage cannot be predicted from the Fibroscan reading. 2. Assessing the likelihood of advanced fibrosis in patients with indeterminate liver stiffness measurement (LSM) by Fibroscan (e.g., 8-15 kPa) can be improved by also calculating the FIB4 score (Zee et al. Hepatology Communications 2019;3:9440-9050) or NAFLD Fibrosis score (Monsalve et al. Clinical Gastroenterology and Hepatology 2019;17:9048-0092. from routine clinical data. 3. Liver stiffness can be increased by factors other than fibrosis including passive congestion, infiltrative processes, active alcoholism, biliary obstruction and marked inflammation. The interpretation of the Fibroscan result provided above may not have taken such clinical factors into account. Disease etiology also influences Fibroscan cutoff values for fibrosis stages and the following cutoffs have been proposed (Wili et al, Clin Gastro Hepatol 2015; 13:27-36): Cutoffs for Stage 3 and Stage 4 fibrosis respectively: Hepatitis B: >9 and >11.7 kPa Hepatitis C: >9.5 and >12.5 kPa HCV-HIV: >11 and >14 kPa Cholestatic liver diseases: >10 and >17.9 kPa NAFLD/CULLEN: >10 and >14 kPa CAP estimates of steatosis: normal <200 dB/m mild 200 to 250 dB/m moderate 250-290 dB/m substantial > 290 dB/m (Note that Fibroscan is not a quantitative measure of liver fat.) These criteria are estimates and may change as additional supporting data becomes available. [email or web address] [email or web address] Abby Zuniga FINAL ARMATURE TESTER-HEALTH CARE COACH PROCEDURE/M INOR SURGICAL ORDERABLES * PT-INR [facility] (09/29/2021 1:12 PM GROUND SERVICE EQUIPMENT MECHANIC) PT 13.2 12.1 - 14.8 Seconds 09/29/2021 2:47 PM GROUND SERVICE EQUIPMENT MECHANIC [facility] INR 1.0 See Comment 09/29/2021 2:47 PM GROUND SERVICE EQUIPMENT MECHANIC [facility] Comment:The suggested therap eutic range for standard coumadin (warfarin) therapy is an INR of 2.0-3.0. For high-risk patients (Mechanical Mitral Valve Prosthesis, etc.), the suggested prophylactic therapeutic range is an INR of 2.5-3.5. Blood BLOOD SPECIMEN / Unknown Lab Venipuncture / Unknown 09/29/2021 1:12 PM GROUND SERVICE EQUIPMENT MECHANIC 09/29/2021 2:27 PM GROUND SERVICE EQUIPMENT MECHANIC Abby Zuniga FINAL ARMATURE TESTER-HEALTH CARE COACH LAB - [facility] ORDERABLES [facility] [address] [place] [address], [facility] [phone] * SMOOTH MUSCLE ANTIBODY W REFLEX TITER (09/29/2021 1:12 PM GROUND SERVICE EQUIPMENT MECHANIC) F-Actin Antibody IgG 7 0 - 19 Units 10/01/2021 12:20 AM GROUND SERVICE EQUIPMENT MECHANIC [employer] ([facility]) Comment: If F-Actin (Smooth Muscle) Antibody, IgG is negative, the Smooth Muscle Antibody titer by IFA is not performed. REFERENCE INTERVAL: F-Actin (Smooth Muscle) Antibody, IgG by LIAT 19 Units or less ....... Negative 20 - 30 Units .......... Weak Positive-Suggest repeat testing in two to three weeks with fresh specimen. 31 Units or greater..... Positive-Suggestive of autoimmune hepatitis type 1 or chronic active hepatitis. F-actin IgG antibodies have been shown to have increased sensitivity for autoimmune hepatitis (AIH) but lower specificity than smooth muscle antibodies (SMA). F-actin IgG antibodies can also be seen in SMA-negative disease controls (non-AIH), especially in patients with primary biliary cirrhosis and chronic hepatitis C infections. Some patients with AIH may be SMA-positive but negative for F-actin IgG. Consider testing for SMA by IFA if suspicion for AIH is strong. Performed By: [facility] [address] [place] [address] Client Care Representative: Bridget Sanchez MD Blood BLOOD SPECIMEN / Unknown Lab Venipuncture / Unknown 09/29/2021 1:12 PM GROUND SERVICE EQUIPMENT MECHANIC 09/29/2021 2:30 PM GROUND SERVICE EQUIPMENT MECHANIC Abby Zuniga FINAL ARMATURE TESTER-HEALTH CARE COACH LAB - SEROL OGY ORDERABLES [facility] [employer] [facility]) [address] * MITOCHONDRIAL ANTIBODY SCREEN (09/29/2021 1:12 PM GROUND SERVICE EQUIPMENT MECHANIC) Pathologist [facility] Mitochondrial M2 Antibody 2.0 0.0 - 24.9 Units 10/01/2021 12:20 AM GROUND SERVICE EQUIPMENT MECHANIC [employer] ([facility]) Comment: REFERENCE INTERVAL: Mitochondrial (M2) Antibody, IgG 20.0 Units or less ......... Negative 20.1 - 24.9 Units........... Equivocal 25.0 Units or greater....... Positive Anti-mitochondrial antibodies (AMA) are thought to be present in 90-95% of patients with primary biliary cholangitis (PBC). However, the frequency of detected antibodies may be cohort or assay dependent, as lower sensitivities have been reported. Not all PBC patients are positive for AMA; some patients may be positive for SP100 and/or GP210 antibodies. A negative result does not rule out PBC. Performed By: [facility] [address] [place] [address] Client Care Representative: Bridget Sanchez MD Blood BLOOD SPECIMEN / Unknown Lab Venipuncture / Unknown 09/29/2021 1:12 PM GROUND SERVICE EQUIPMENT MECHANIC 09/29/2021 2:30 PM GROUND SERVICE EQUIPMENT MECHANIC Abby Zuniga FINAL ARMATURE TESTER-HEALTH CARE COACH LAB - CHEMI STRY ORDERABLES [employer] ([facility]) [address] [place] [address], [facility] * LIUED-3-NHNVJEEFOJZ BLOOD PHENOTYPING PANEL (09/29/2021 1:12 PM GROUND SERVICE EQUIPMENT MECHANIC) Ueqzv-4-Adzmmqxrk in Phenotype M1S 10/02/2021 9:09 PM GROUND SERVICE EQUIPMENT MECHANIC [employer] (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 The M allele protein product is a normal variant. The S allele protein product is a deficiency variant that is associated with a less severe deficiency (approximately 60 percent of normal serum concentrations) of the bvjfx-6-xpobgdjg inhibitor than the classic Z variant (approximately 15 percent of normal serum concentrations). Individuals with this phenotype are rarely at risk for development of yvisy-7-qkbwizcz inhibitor deficiency-related hepatic or pulmonary disease. Caution in interpretation is advised if the patient has been transfused in the previous 21 days. Performed By: [facility] [address] [place] [address] Client Care Representative: Bridget Sanchez MD Bczqz-1-Sbmqnwnno in 103 90 - 200 mg/dL 10/02/2021 9:09 PM GROUND SERVICE EQUIPMENT MECHANIC [employer] ([facility]) Comment:To convert to umol/L , multiply mg/dL by 0.185 Blood BLOOD SPECIMEN / Unknown Lab Venipuncture / Unknown 09/29/2021 1:12 PM GROUND SERVICE EQUIPMENT MECHANIC 09/29/2021 2:31 PM GROUND SERVICE EQUIPMENT MECHANIC Abby Zuniga [facility]AL [facility] LAB - CHEMI STRY ORDERABLES Performing Organization Address [facility] de Phone Number [facility] [employer] [facility]) [address] * CARRILLO BLOOD SCREEN W/REFLEX TITER (09/29/2021 1:12 PM GROUND SERVICE EQUIPMENT MECHANIC) CARRILLO IgG None Detected None Detected 10/01/2021 1:17 AM GROUND SERVICE EQUIPMENT MECHANIC [employer] ([facility]) Comment: If suspicion of connective tissue disease is strong and CARRILLO EIA is negative, consider testing for CARRILLO by IFA ([id number]). INTERPRETIVE INFORMATION: Anti-Nuclear Antibodies (CARRILLO), IgG by LIAT Antinuclear Antibodies (CARRILLO), IgG by LIAT: CARRILLO specimens are screened using enzyme-linked immunosorbent assay (LIAT) methodology. All LIAT results reported as Detected are further tested by indirect fluorescent assay (IFA) using HEp-2 substrate with an IgG-specific conjugate. The CARRILLO LIAT screen is designed to detect antibodies against dsDNA, histones, SS-A (Ro), SS-B (La), Asencio, Asencio/PATIENT SCHEDULER, Scl-70, Janelle-1, centromeric proteins, other antigens extracted from the HEp-2 cell nucleus. CARRILLO LIAT assays have been reported to have lower sensitivities than CARRILLO IFA for systemic autoimmune rheumatic diseases (SARD). Negative results do not necessarily rule out SARD. Performed By: [facility] [address] [place] [address] Client Care Representative: Bridget Sanchez MD Blood BLOOD SPECIMEN / Unknown Lab Venipuncture / Unknown 09/29/2021 1:12 PM GROUND SERVICE EQUIPMENT MECHANIC 09/29/2021 2:31 PM GROUND SERVICE EQUIPMENT MECHANIC Abby Zuniga FINAL ARMATURE TESTER-HEALTH CARE COACH LAB - CHEMI STRY ORDERABLES Performing Organization Address City/[facility] Co de Phone Number [facility] [employer] [facility]) [address] * MICROSOMAL ANTIBODY LIVER/KIDNEY (09/29/2021 1:12 PM GROUND SERVICE EQUIPMENT MECHANIC) Liver/Kidney Microsomal Antibody IgG <1:20 <1:20 10/01/2021 4:55 PM GROUND SERVICE EQUIPMENT MECHANIC [facility] ([facility]) Comment: INTERPRETIVE INFORMATION: Uiqqn-Pgepqs-Dnjgmpfcz Abs, IgG Liver-Kidney Microsome IgG antibody (anti-LKM), as detected by indirect immunofluorescent antibody (IFA) techniques, may be observed in patients with autoimmune hepatitis type 2 (AIH-2), AIH-2 associated with autoimmune ecwetsscamvsfyvmzf-ocpwqdrcjeq-xcgaswajsp dystrophy (APECED), viral hepatitis C or D, and some forms of drug-induced hepatitis. This IFA does not differentiate among the four types of LKM antibodies (LKM-1, LKM-2, LKM-3, and a fourth type that recognizes CY and CY antigens). Of these, anti-LKM-1 (cytochrome [id number]) IgG antibodies are considered specific for AIH-2. This test was developed and its performance characteristics determined by [employer]. It has not been cleared or approved by the US Food and Drug Administration. This test was performed in a CLIA certified laboratory and is intended for clinical purposes. Performed By: [facility] [employer] [address] [place] [address] Client Care Representative: Bridget Sanchez MD Blood BLOOD SPECIMEN / Unknown Lab Venipuncture / Unknown 09/29/2021 1:12 PM GROUND SERVICE EQUIPMENT MECHANIC 09/29/2021 2:30 PM GROUND SERVICE EQUIPMENT MECHANIC Abby Zuniga FINAL ARMATURE TESTER-HEALTH CARE COACH LAB - CHEMI STRY ORDERABLES [facility]) [address] [place] [address], [facility] * TRANSFERRIN (09/29/2021 1:12 PM GROUND SERVICE EQUIPMENT MECHANIC) Pathologist [facility] Transferrin 309 174 - 382 mg/dL 09/29/2021 4:08 PM GROUND SERVICE EQUIPMENT MECHANIC [facility] Blood BLOOD SPECIMEN / Unknown Lab Venipuncture / Unknown 09/29/2021 1:12 PM GROUND SERVICE EQUIPMENT MECHANIC 09/29/2021 2:31 PM GROUND SERVICE EQUIPMENT MECHANIC Abby Cabreraanson FINAL ARMATURE TESTER-HEALTH CARE COACH LAB - CHEMI STRY ORDERABLES [address] [address], [facility] [phone] * CERULOPLASMIN (09/29/2021 1:12 PM GROUND SERVICE EQUIPMENT MECHANIC) Ceruloplasmin 37 20 - 60 mg/dL 09/29/2021 4:09 PM GROUND SERVICE EQUIPMENT MECHANIC [facility] Blood BLOOD SPECIMEN / Unknown Lab Venipuncture / Unknown 09/29/2021 1:12 PM GROUND SERVICE EQUIPMENT MECHANIC 09/29/2021 2:31 PM GROUND SERVICE EQUIPMENT MECHANIC Abby Zuniga FINAL ARMATURE TESTER-HEALTH CARE COACH LAB - CHEMI STRY ORDERABLES Performing Organization Address City/[facility]/ZIP Co de Phone Number [address] [address], [facility] [phone] * VPFLJ-8-WAVKKSHDGRT BLOOD (09/29/2021 1:12 PM GROUND SERVICE EQUIPMENT MECHANIC) Melwc-2-Ntayli ypsin 115 90 - 200 mg/dL 09/29/2021 4:08 PM GROUND SERVICE EQUIPMENT MECHANIC [facility] Blood BLOOD SPECIMEN / Unknown Lab Venipuncture / Unknown 09/29/2021 1:12 PM GROUND SERVICE EQUIPMENT MECHANIC 09/29/2021 2:31 PM GROUND SERVICE EQUIPMENT MECHANIC Abby Zuniga [facility] LAB - CHEMI STRY ORDERABLES [address] [address], [place] [phone] * IRON BLOOD (09/29/2021 1:12 PM GROUND SERVICE EQUIPMENT MECHANIC) Iron 98 40 - 150 ug/dL 09/29/2021 4:08 PM GROUND SERVICE EQUIPMENT MECHANIC [facility] Blood BLOOD SPECIMEN / Unknown Lab Venipuncture / Unknown 09/29/2021 1:12 PM GROUND SERVICE EQUIPMENT MECHANIC 09/29/2021 2:31 PM GROUND SERVICE EQUIPMENT MECHANIC Abby Zuniga FINAL ARMATURE TESTER-HEALTH CARE COACH LAB - CHEMI STRY ORDERABLES [address] [address], [facility] [phone] * HEPATITIS B SURFACE ANTIBODY (09/29/2021 1:12 PM GROUND SERVICE EQUIPMENT MECHANIC) Hepatitis B Virus Surface Antibody Non-react robert Non-react robert 09/29/2021 4:27 PM GROUND SERVICE EQUIPMENT MECHANIC [facility] Comment: < 8 mIU/mL Hepatitis B surface Antibody (HBsAb). Nonreactive for HBsAb - individual is considered not immune to Hepatitis B Virus infection. Hepatitis B Surface Antibody Quantitative 0.1 <8.0 mIU/mL 09/29/2021 4:27 PM GROUND SERVICE EQUIPMENT MECHANIC [facility] Comment: Hepatitis B Surface Antibody Numeric Result Interpretation: Nonreactive: <8.0 mIU/mL Indeterminate: 8.0 - 12.0 mIU/mL Reactive: >12.0 mIU/mL Blood BLOOD SPECIMEN / Unknown Lab Venipuncture / Unknown 09/29/2021 1:12 PM GROUND SERVICE EQUIPMENT MECHANIC 09/29/2021 2:31 PM GROUND SERVICE EQUIPMENT MECHANIC Abby Zuniga APRN-HEALTH CARE COACH LAB - CHEMI STRY ORDERABLES Performing Organization Address City/[facility]/ZIP Co de Phone Number [address] [address], [place] [phone] * HEPATITIS B CORE ANTIBODY (09/29/2021 1:12 PM GROUND SERVICE EQUIPMENT MECHANIC) HBc Antibody Total Non-reacti ve Non-reacti ve 09/29/2021 4:27 PM GROUND SERVICE EQUIPMENT MECHANIC [facility] Blood BLOOD SPECIMEN / Unknown Lab Venipuncture / Unknown 09/29/2021 1:12 PM GROUND SERVICE EQUIPMENT MECHANIC 09/29/2021 2:31 PM GROUND SERVICE EQUIPMENT MECHANIC Abby Zuniga FINAL ARMATURE TESTER-HEALTH CARE COACH LAB - CHEMI STRY ORDERABLES [facility] [address] [address], [place] [phone] * HEPATITIS B SURFACE ANTIGEN W RFLX CONFIRMATION (09/29/2021 1:12 PM GROUND SERVICE EQUIPMENT MECHANIC) Hepatitis B Virus Surface Antigen Non-reacti ve Non-reacti ve 09/29/2021 4:27 PM GROUND SERVICE EQUIPMENT MECHANIC [facility] Blood BLOOD SPECIMEN / Unknown Lab Venipuncture / Unknown 09/29/2021 1:12 PM GROUND SERVICE EQUIPMENT MECHANIC 09/29/2021 2:31 PM GROUND SERVICE EQUIPMENT MECHANIC Abby Zuniga FINAL ARMATURE TESTER-HEALTH CARE COACH LAB - CHEMI STRY ORDERABLES [address] [address], [place] [phone] * GGT (09/29/2021 1:12 PM GROUND SERVICE EQUIPMENT MECHANIC) Pathologist [facility] GGT 59 9 - 64 Units/L 09/29/2021 2:57 PM GROUND SERVICE EQUIPMENT MECHANIC [facility] Blood BLOOD SPECIMEN / Unknown Lab Venipuncture / Unknown 09/29/2021 1:12 PM GROUND SERVICE EQUIPMENT MECHANIC 09/29/2021 2:30 PM GROUND SERVICE EQUIPMENT MECHANIC Abby Zuniga FINAL ARMATURE TESTER-HEALTH CARE COACH LAB - CHEMI STRY ORDERABLES [address] [address], [place] [phone] * IGG BLOOD (09/29/2021 1:12 PM GROUND SERVICE EQUIPMENT MECHANIC) Pathologist [facility] IgG 1,247 767-1,590 mg/dL 09/29/2021 4:08 PM GROUND SERVICE EQUIPMENT MECHANIC [facility] Blood BLOOD SPECIMEN / Unknown Lab Venipuncture / Unknown 09/29/2021 1:12 PM GROUND SERVICE EQUIPMENT MECHANIC 09/29/2021 2:31 PM GROUND SERVICE EQUIPMENT MECHANIC Abby Zuniga FINAL ARMATURE TESTER-HEALTH CARE COACH LAB - CHEMI STRY ORDERABLES [address] [place] [address], [facility] [phone] * HEPATITIS C ANTIBODY (09/29/2021 1:12 PM GROUND SERVICE EQUIPMENT MECHANIC) [facility] Hepatitis C Antibody Non-react robert Non-reac tive 09/29/2021 4:27 PM GROUND SERVICE EQUIPMENT MECHANIC [facility] Comment:Hepatitis C Antibody screen indicates no serologic evidence of past or current infection with Hepatitis C Virus. Patients with unexplained liver disease who are immunocompromised or suspected of having acute Hepatitis C infection may benefit from Nucleic Acid Test (ASIA) for Hepatitis C Viral RNA to confirm Hepatitis C status. Blood BLOOD SPECIMEN / Unknown Lab Venipuncture / Unknown 09/29/2021 1:12 PM GROUND SERVICE EQUIPMENT MECHANIC 09/29/2021 2:31 PM GROUND SERVICE EQUIPMENT MECHANIC Abby Zuniga APRN-HEALTH CARE COACH LAB - CHEMI STRY ORDERABLES [address] [address], [facility] [phone] * FERRITIN (09/29/2021 1:12 PM GROUND SERVICE EQUIPMENT MECHANIC) [facility] Ferritin 129 13 - 204 ng/mL 09/29/2021 4:27 PM [facility] Blood BLOOD SPECIMEN / Unknown Lab Venipuncture / Unknown 09/29/2021 1:12 PM GROUND SERVICE EQUIPMENT MECHANIC 09/29/2021 2:31 PM GROUND SERVICE EQUIPMENT MECHANIC Abby Zuniga FINAL ARMATURE TESTER-HEALTH CARE COACH LAB - CHEMI STRY ORDERABLES [address] [address], [facility] [phone] * HEMOGLOBIN A1C (05/21/2020 1:24 AM CDT) Only the most recent of2 resultswithin the time period is included. [facility] Hemoglobin A1c 4.6 4.2 - 5.6 % 05/21/2020 1:47 AM CDT [facility] Estimated Average Glucose 85 mg/dL 05/21/2020 1:47 AM CDT [facility] Blood BLOOD SPECIMEN / Unknown Venipuncture / Unknown 05/21/2020 1:24 AM CDT 05/21/2020 1:30 AM CDT [facility] - 05/21/2020 1:47 AM CDT The following cutoff levels are recommended by [place] [employer]. A1c > 6.5% : considered as diabetes if two separate tests >6.5% or in an appropriate clinical setting. A1c 5.7% - 6.4% : considered as prediabetes (suggest increased risk for diabetes and cardiovascular disease) Control target level: Should be individualized. < 7 for general (non-) , < 8% less stringent goal, < 6.5 more stringent goal. Hemoglobin A1c measurements are used as an aid in the diagnosis of diabetic mellitus, as an aid to identify patients who may be at the risk for developing diabetic mellitus, and for the monitoring long-term blood glucose control in individuals with diabetes mellitus. This test should not replace glucose testing for patients with Type 1 diabetes, pediatric patients, or women. Falsely low HbA1c results may be observed in patients with clinical conditions that shorten erythrocyte life span or decrease mean erythrocyte age such as the presence of unstable hemoglobin variants, elevated hemoglobin F level or other causes of hemolytic anemia . HbA1c may not accurately reflect glycemic control when clinical conditions that affect erythrocyte survival are present. Severe Iron deficiency anemia may yield falsely high results. Hemoglobin A1c assay should not be used to diagnose or monitor diabetes in patients with malignancy, recent blood transfusion, chronic kidney or liver disease. This method may yield falsely low results when hemoglobin (HbF) exceeds 5% in the specimen. Elie Galicia MD LAB - CHEMISTRY ANGELINA MUNROE [facility] Organization Address City/State/[facility] Co de Phone Number [facility] [address] [place] [address] * (ABNORMAL) CBC W/O DIFFERENTIAL (05/21/2020 1:24 AM CDT) [facility] WBC 6.9 4.4 - 10.7 x10E9/L 05/21/2020 1:33 AM CDT [facility] RBC 4.33 3.80 - 5.20 x10E12/L 05/21/2020 1:33 AM CDT [facility] Hemoglobin 12.2 12.0 - 15.6 gm/dL 05/21/2020 1:33 AM CDT [facility] Hematocrit 36.2 35.9 - 45.5 % 05/21/2020 1:33 AM CDT [facility] MCV 83.6 80.7 - 98.3 fl 05/21/2020 1:33 AM CDT [facility] MCH 28.2 26.7 - 34.0 pg 05/21/2020 1:33 AM CDT [facility] MCHC 33.7 30.8 - 35.9 gm/dL 05/21/2020 1:33 AM CDT [facility] Platelet Count 163 153 - 416 x10E9/L 05/21/2020 1:33 AM CDT [facility] RDW-CV 11.9(L) 12.1 - 14.9 % 05/21/2020 1:33 AM CDT [facility] MPV 9.8 9.4 - 12.9 fl 05/21/2020 1:33 AM CDT [facility] Blood BLOOD SPECIMEN / Unknown Venipuncture / Unknown 05/21/2020 1:24 AM CDT 05/21/2020 1:30 AM CDT Misbah Gandhi MD LAB - HEMATOLOGY OR DERABLES Performing Organization Address City/State/[facility] Co de Phone Number [facility] [address] [place] [address] * (ABNORMAL) COMPREHENSIVE METABOLIC PANEL (05/21/2020 1:24 AM CDT) Only the most recent of2 resultswithin the time period is included. Glucose 126(H) 70 - 105 mg/dL 05/21/2020 1:52 AM CDT [facility] Sodium 139 136 - 145 mmol/L 05/21/2020 1:52 AM CDT [facility] Potassium 4.6 3.5 - 5.1 mmol/L 05/21/2020 1:52 AM CDT [facility] Chloride 106 98 - 107 mmol/L 05/21/2020 1:52 AM CDT [facility] CO2 24 23 - 31 mmol/L 05/21/2020 1:52 AM CDT [facility] Calcium 9.7 8.4 - 10.4 mg/dL 05/21/2020 1:52 AM CDT [facility] Anion Gap 9 8 - 16 mmol/L 05/21/2020 1:52 AM CDT [facility] BUN 23(H) 7 - 18.7 mg/dL 05/21/2020 1:52 AM CDT [facility] Creatinine 0.79 0.57 - 1.11 mg/dL 05/21/2020 1:52 AM CDT [facility] Alkaline Phosphatase 91 40 - 150 U/L 05/21/2020 1:52 AM CDT [facility] ALT 32 0 - 61 U/L 05/21/2020 1:52 AM CDT [facility] AST 26 5 - 34 U/L 05/21/2020 1:52 AM CDT [facility] Protein Total 7.2 6.4 - 8.3 gm/dL 05/21/2020 1:52 AM CDT [facility] Albumin 4.0 3.5 - 5.2 gm/dL 05/21/2020 1:52 AM CDT [facility] Bilirubin Total 0.2 0.2 - 1.0 mg/dL 05/21/2020 1:52 AM CDT [facility] eGFR by MDRD >60 >60 mL/min/1.7 3m2 05/21/2020 1:52 AM CDT [facility] eGFR by MDRD >60 >60 mL/min/1.7 3m2 05/21/2020 1:52 AM T [facility] Blood BLOOD SPECIMEN / Unknown Venipuncture / Unknown 05/21/2020 1:24 AM CDT 05/21/2020 1:30 AM CDT Misbah Gandhi MD LAB - CHEMISTRY ORD ERABLES [facility] [address] [place] [address] * LIPID PROFILE (05/21/2020 1:24 AM CDT) Only the most recent of2 resultswithin the time period is included. Cholesterol 173 <200 mg/dL 05/21/2020 1:51 AM CDT [facility] Triglycerides 120 <150 mg/dL 05/21/2020 1:51 AM CDT [facility] HDL Cholesterol 62 >40 mg/dL 0 1:51 AM CDT [facility] LDL Calculated 87 <130 mg/dL 05/21/2020 1:51 AM CDT [facility] VLDL Calculated 24 <=30 mg/dL 0 1:51 AM CDT [facility] Chol HDL Ratio 2.8 <4.5 05/21/2020 1:51 AM CDT [facility] LDL/HDL Ratio 1.4 <5.0 05/21/2020 1:51 AM CDT [facility] Blood BLOOD SPECIMEN / Unknown Venipuncture / Unknown 05/21/2020 1:24 AM CDT 05/21/2020 1:30 AM CDT Elie Galicia MD LAB - CHEMISTRY ANGELINA MUNROE Performing Organization Address [facility] Co de Phone Number [facility] [address] [place] [address] * EKG 12-LEAD (05/20/2020 5:38 PM CDT) Ventricular Rate 99 BPM [facility] Atrial Rate 99 BPM [facility] P-R Interval 164 ms [facility] QRS Duration ms 84 ms [facility] Q-T Interval ms 356 ms [facility] QTC Calculation (Bezet) 456 ms [facility] Calculated P [place] 67 degrees [facility] Calculated R [place] 67 degrees [facility] Calculated T [place] 56 degrees [facility] Interpretation EKG Normal sinus rhythm with sinus arrhythmia Normal ECG No previous ECGs available Confirmed by JENNIFER WATTS MD ([id number]) on 05/23/2020 12:24:23 PM [facility] 05/20/2020 5:38 PM CDT 05/23/2020 12:24 PM CDT Misbah Gandhi MD ECG ORDERABLES Performing Organization Address [facility]/ZIP Co de Phone Number [facility] * XR ABDOMEN KUB (05/20/2020 5:17 PM CDT) Anatomical Region Laterality Modality Abdomen Radiographic Janee ging 05/20/2020 5:25 PM CDT Narrative 05/20/2020 5:26 PM CDT AP ABDOMEN/KUB Indication: abdominal pain Comparison: None Findings: There is a nonspecific bowel gas pattern with no ileus or obstruction. There is no free air. There is a spinal stimulator implants and stent decompression/fusion changes are noted in the lower lumbar region and sacral region. Cholecystectomy clips are present in the right upper quadrant. *Reading Radiologist: Burak Faye on 05/20/2020 at 5:26 PM Procedure Note Burak Faye MD - 05/20/2020 AP ABDOMEN/KUB Indication: abdominal pain Comparison: None Findings: There is a nonspecific bowel gas pattern with no ileus or obstruction. There is no free air. There is a spinal stimulator implants and stent decompression/fusion changes are noted in the lower lumbar region and sacral region. Cholecystectomy clips are present in the right upper quadrant. *Reading Radiologist: Burak Faye on 05/20/2020 at 5:26 PM Misbah Gandhi MD DIAGNOSTIC IMAGING ORDERABLES * (ABNORMAL) URINE MICROSCOPIC ONLY REFLEX TO CULTURE (05/20/2020 4:36 PM CDT) Reflex Status Culture to follow 05/20/2020 5:16 PM CDT [facility] RBC UA 0-2 None Seen, 0-2, 3-5 # /hpf 05/20/2020 5:16 PM CDT [facility] WBC UA 11-20(A) None Seen, 0-5 # /hpf 05/20/2020 5:16 PM CDT [facility] Bacteria UA Trace(A) None Seen 05/20/2020 5:16 PM CDT [facility] Squamous Epithelial Cells 3-5 None Seen, 0-2, 3-5 /hpf 05/20/2020 5:16 PM CDT [facility] Mucus UA 1+ /LPF 05/20/2020 5:16 PM CDT [facility] Urine URINE SPECIMEN OBTAINED BY CLEAN CATCH PROCEDURE / Unknown Collection / Unknown 05/20/2020 4:36 PM CDT 05/20/2020 4:47 PM CDT Narrative [facility] - 05/20/2020 5:16 PM CDT Misbah Gandhi MD LAB - URINALYSIS OR DERABLES [facility] [address] [place] [address] * (ABNORMAL) URINALYSIS REFLEX MICROSCOPIC REFLEX CULTURE (05/20/2020 4:36 PM CDT) Color UA Straw Straw, Yellow 05/20/2020 5:01 PM CDT [facility] Clarity UA Clear Clear 05/20/2020 5:01 PM CDT [facility] Glucose UA Negative Negative 05/20/2020 5:01 PM CDT [facility] Bilirubin UA Negative Negative 05/20/2020 5:01 PM CDT [facility] Ketone UA Negative Negative 05/20/2020 5:01 PM CDT [facility] Specific [place] UA 1.006 1.005 - 1.030 05/20/2020 5:01 PM CDT [facility] Blood UA 1+(A) Negative 05/20/2020 5:01 PM CDT [facility] pH UA 7.0 5.0 - 8.0 pH 05/20/2020 5:01 PM CDT [facility] Protein UA Negative Negative 05/20/2020 5:01 PM CDT [facility] Urobilinogen UA Negative Negative mg/dL 05/20/2020 5:01 PM CDT [facility] Nitrite UA Negative Negative 05/20/2020 5:01 PM CDT [facility] Leukocyte UA 3+(A) Negative 05/20/2020 5:01 PM CDT [facility] Urine Microscopy Urine microscopy to follow 05/20/2020 5:01 PM CDT [facility] Reflex Status Culture to follow 05/20/2020 5:01 PM CDT [facility] Urine URINE SPECIMEN OBTAINED BY CLEAN CATCH PROCEDURE / Unknown Collection / Unknown 05/20/2020 4:36 PM CDT 05/20/2020 4:47 PM CDT Narrative [facility] - 05/20/2020 5:01 PM CDT Misbah Gandhi MD LAB - URINALYSIS OR DERABLES [facility] [address] [place] [address] * (ABNORMAL) URINALYSIS REFLEX TO MICROSCOPIC NO CULTURE (05/20/2020 4:36 PM CDT) Color UA Straw Straw, Yellow 05/20/2020 4:52 PM CDT [facility] Clarity UA Clear Clear 05/20/2020 4:52 PM CDT [facility] Glucose UA Negative Negative 05/20/2020 4:52 PM CDT [facility] Bilirubin UA Negative Negative 05/20/2020 4:52 PM CDT [facility] Ketone UA Negative Negative 05/20/2020 4:52 PM CDT [facility] Specific [place] UA 1.006 1.005 - 1.030 05/20/2020 4:52 PM CDT [facility] Blood UA 1+(A) Negative 05/20/2020 4:52 PM CDT [facility] pH UA 7.0 5.0 - 8.0 pH 05/20/2020 4:52 PM CDT [facility] Protein UA Negative Negative 05/20/2020 4:52 PM CDT [facility] Urobilinogen UA Negative Negative mg/dL 05/20/2020 4:52 PM CDT [facility] Nitrite UA Negative Negative 05/20/2020 4:52 PM CDT [facility] Leukocyte UA 3+(A) Negative 05/20/2020 4:52 PM CDT [facility] Urine Microscopy Urine microscopy to follow 05/20/2020 4:52 PM CDT [facility] Urine URINE SPECIMEN OBTAINED BY CLEAN CATCH PROCEDURE / Unknown Collection / Unknown 05/20/2020 4:36 PM CDT 05/20/2020 4:47 PM CDT Narrative [facility] - 05/20/2020 4:52 PM CDT Misbah Gandhi MD LAB - URINALYSIS OR DERABLES [facility] [address] [place] [address] * (ABNORMAL) URINE MICROSCOPIC ONLY (05/20/2020 4:36 PM CDT) RBC UA 0-2 None Seen, 0-2, 3-5 # /hpf 05/20/2020 5:04 PM CDT [facility] WBC UA 11-20(A) None Seen, 0-5 # /hpf 05/20/2020 5:04 PM CDT [facility] Bacteria UA Trace(A) None Seen 05/20/2020 5:04 PM CDT [facility] Squamous Epithelial Cells 3-5 None Seen, 0-2, 3-5 /hpf 05/20/2020 5:04 PM CDT [facility] Mucus UA 1+ /LPF 05/20/2020 5:04 PM CDT [facility] Urine URINE SPECIMEN OBTAINED BY CLEAN CATCH PROCEDURE / Unknown Collection / Unknown 05/20/2020 4:36 PM CDT 05/20/2020 4:47 PM CDT Narrative [facility] - 05/20/2020 5:04 PM CDT Misbah Gandhi MD LAB - URINALYSIS OR DERABLES Performing Organization Address [facility] Co de Phone Number [facility] [address] [place] [address] * CULTURE URINE (05/20/2020 4:36 PM CDT) Pathologist [facility] Culture Urine 10,000-50,000 CFU/mL urogenital rio SHOAIB 05/22/2020 7:10 AM CDT [facility] MICROBIOLOGY Urine URINE SPECIMEN OBTAINED BY CLEAN CATCH PROCEDURE / Unknown Collection / Unknown 05/20/2020 4:36 PM CDT 05/20/2020 4:47 PM CDT Misbah Gandhi MD LAB - MICROBIOLOGY ORDERABLES Performing Organization Address [facility] Co de Phone Number [facility] MICROBIOLOGY [address] [place] [address], [facility] [phone] * HCG URINE QUALITATIVE (05/18/2020 2:47 PM CDT) Pathologist [facility] hCG Qualitative Urine Negative Negative 05/18/2020 2:52 PM CDT [facility] Urine URINE / Unknown Collection / Unknown 05/18/2020 2:47 PM CDT 05/18/2020 2:47 PM CDT Imani Magana FINAL ARMATURE TESTER-THERMOMETER MAKER LAB - URINALYSIS ORDERABLES Performing Organization Address [facility] Co de Phone Number [facility] [address] [place] [address] * (ABNORMAL) DRUG SCREEN TOX URINE PANEL (05/18/2020 2:47 PM CDT) Amphetamines Screen Urine Not detected Not detected 05/18/2020 3:15 PM CDT [facility] Barbiturates Screen Urine Not detected Not detected 05/18/2020 3:15 PM CDT [facility] Benzodiazepines Screen Urine Detected(A) Not detected 05/18/2020 3:15 PM CDT [facility] Cannabinoids Screen Urine Not detected Not detected 05/18/2020 3:15 PM CDT [facility] Cocaine Screen Urine Not detected Not detected 05/18/2020 3:15 PM CDT [facility] Fentanyl Urine Not detected Not detected 05/18/2020 3:15 PM CDT [facility] Methadone Screen Urine Not detected Not detected 05/18/2020 3:15 PM CDT [facility] Opiate Screen Urine Not detected Not detected 05/18/2020 3:15 PM CDT [facility] Phencyclidine Screen Urine Not detected Not detected 05/18/2020 3:15 PM CDT [facility] Urine URINE / Unknown Collection / Unknown 05/18/2020 2:47 PM CDT 05/18/2020 2:47 PM CDT Narrative [facility] - 05/18/2020 3:15 PM CDT This drug screen is designed for MEDICAL purposes only. It is not to be used for legal purposes, including but not limited to worker's comp, police investigations, occupational issues, child custody, etc. Any positive result is only presumptive and must be confirmed with a separate confirmatory test ordered by the physician. Drug Screening Test Cutoff Values: AMPHETAMINES 1000 ng/mL BARBITURATES 200 ng/mL BENZODIAZEPINES 200 ng/mL CANNABINOIDS(THC) 50 ng/mL COCAINE 300 ng/mL FENTANYL 1 ng/mL METHADONE 300 ng/mL OPIATES 300 ng/mL PHENCYCLIDINE(PCP) 25 ng/mL Imani Magana FINAL ARMATURE TESTER-THERMOMETER MAKER LAB - URINE CHEMI STRY ORDERABLES [facility] [address] [place] [address] * SYPHILIS ANTIBODY CASCADING REFLEX (05/18/2020 11:30 AM CDT) Treponema pallidum Antibody Non Reactive Non Reactive 05/18/2020 12:28 PM CDT [facility] Comment: No Laboratory evidence of syphilis infection. Note: Circulating antibodies may be low or undetectable in early infection. If recent exposure is suspected, re-draw sample in 2-4 weeks and repeat testing. Blood BLOOD SPECIMEN / Unknown Venipuncture / Unknown 05/18/2020 11:30 AM CDT 05/18/2020 11:43 AM CDT Imani Magana FINAL ARMATURE TESTER-THERMOMETER MAKER LAB - SEROLOGY OR DERABLES Performing Organization Address [facility] Co de Phone Number [facility] [address] [place] [address] * TSH REFLEX FREE T4 (05/18/2020 11:30 AM CDT) Pathologist [facility] TSH 1.509 0.350 - 4.940 uIU/mL 05/18/2020 12:23 PM CDT [facility] Blood BLOOD SPECIMEN / Unknown Venipuncture / Unknown 05/18/2020 11:30 AM CDT 05/18/2020 11:43 AM CDT Imani Magana FINAL ARMATURE TESTER-THERMOMETER MAKER LAB - CHEMISTRY O RDERABLES Performing Organization Address [facility] de Phone Number [facility] [address] [place] [address] * (ABNORMAL) CBC W AUTO DIFFERENTIAL (05/18/2020 11:30 AM CDT) Pathologist [facility] WBC 6.2 4.4 - 10.7 x10E9/L 05/18/2020 11:48 AM CDT [facility] WBC Corrected 05/18/2020 11:48 AM CDT [facility] RBC 4.32 3.80 - 5.20 x10E12/L 05/18/2020 11:48 AM CDT [facility] Hemoglobin 12.2 12.0 - 15.6 gm/dL 05/18/2020 11:48 AM CDT [facility] Hematocrit 36.5 35.9 - 45.5 % 05/18/2020 11:48 AM CDT [facility] MCV 84.5 80.7 - 98.3 fl 05/18/2020 11:48 AM CDT [facility] MCH 28.2 26.7 - 34.0 pg 05/18/2020 11:48 AM CDT [facility] MCHC 33.4 30.8 - 35.9 gm/dL 05/18/2020 11:48 AM CDT [facility] Platelet Count 146(L) 153 - 416 x10E9/L 05/18/2020 11:48 AM CDT [facility] RDW-CV 11.8(L) 12.1 - 14.9 % 05/18/2020 11:48 AM CDT [facility] MPV 10.5 9.4 - 12.9 fl 05/18/2020 11:48 AM CDT [facility] Neutrophils % 69.7 44.0 - 73.0 % 05/18/2020 11:48 AM CDT [facility] Lymphocytes % 21.4 20.0 - 43.0 % 05/18/2020 11:48 AM CDT [facility] Monocytes % 6.5 5.0 - 13.0 % 05/18/2020 11:48 AM CDT [facility] Eosinophils % 1.8 0.0 - 6.0 % 05/18/2020 11:48 AM CDT [facility] Basophils % 0.3 0.0 - 2.0 % 05/18/2020 11:48 AM CDT [facility] Immature Granulocytes 0.3 0 - 1 % 05/18/2020 11:48 AM CDT [facility] Neutrophil Absolute 4.31 2.01 - 7.14 x10E9/L 05/18/2020 11:48 AM CDT [facility] Lymphocytes Absolute 1.32 1.07 - 3.94 x10E9/L 05/18/2020 11:48 AM CDT [facility] Monocytes Absolute 0.40 0.26 - 1.07 x10E9/L 05/18/2020 11:48 AM CDT [facility] Eosinophils Absolute 0.11 0 - 0.47 x10E9/L 05/18/2020 11:48 AM CDT [facility] Basophils Absolute 0.02 0 - 0.08 x10E9/L 05/18/2020 11:48 AM CDT [facility] Immature Granulocytes Absolute 0.02 0.00 - 0.06 x10E9/L 05/18/2020 11:48 AM CDT [facility] nRBC Auto 0 /100 WBC 05/18/2020 11:48 AM CDT [facility] Blood BLOOD SPECIMEN / Unknown Venipuncture / Unknown 05/18/2020 11:30 AM CDT 05/18/2020 11:43 AM CDT Imani Magana FINAL ARMATURE TESTER-THERMOMETER MAKER LAB - HEMATOLOGY ORDERABLES [facility] [address] [place] [address] * GROSS + MICRO EXAM (03/23/2003 12:00 AM CDT) Result CASE NUMBER [id number] Comment: ORDERING PHYSICIAN CHRISS MORALES SPECIMEN TYPE Colon polyp-ascending Surgeon CT MIKE D.O. Gross Exam DR. Grey MASTERS Gross Report COPY TO DR. WALLER INDICATION FOR PROCEDURE OPERATION COLONOSCOPY GROSS THE SPECIMEN IS RECEIVED IN A CONTAINER LABELED WITH THE PATIENT'S NAME AND IDENTIFIED ASCENDING COLON . THE SPECIMEN CONSISTS OF FOUR FRAGMENTS OF PINK SOFT TISSUE VARYING IN SIZE FROM 2-3 MM. IN MAXIMUM DIMENSION. THE ENTIRE TISSUE IS SUBMITTED IN ONE BLOCK. RN/SS MICROSCOPIC EXAM MICROSCOPIC THE ASCENDING COLON BIOPSIES SHOW CRYSTALLINE REFRACTILE MATERIAL ADHERENT TO THE SURFACE OF THE EPITHELIUM THAT SUGGESTS BARIUM. THE BOWEL ITSELF SHOWS NO MORE THAN THE EXPECTED SUPERFICIAL MILD INFLAMMATORY CHANGES SEEN WITH BOWEL PREPARATION. NO DYSPLASIA IS SEEN. DIAGNOSIS DIAGNOSIS [1] ASCENDING COLON BIOPSY -- NO SIGNIFICANT ABNORMALITY AB/SS Released By JAMA GRAY CPT Code 40305 MISCELLANEOUS SAMPLE S / Unknown 03/23/2003 03/24/2003 7:17 AM CDT Historical Provider LAB - PATHOLOGY/C YTOLOGY ORDERABLES Care Teams Drill Sharpener Relationship Specialty Start Date End Date Ute Betancourt APRN-HEALTH CARE COACH [address] [facility] [address] [place], [place] [id number] PCP - General 03/25/18
--- OUTSIDE RECORDS SUMMARY | 2024-11-19 16:03 | XMS_ITS | Encounter Summary ---
Author Organization [facility] Address [address] [place] [address] Care Team Providers Care Fellmongery Worker Name Role Phone Charlie Mera MD Primary Care Provider Mary le Encounter Details Date Type Department Care Team (Late st Contact Info) Description 07/07/2004 Outpatient Historical [facility] Сергей trujillo MD [address] [place] [address] CALCULUS OF KIDNEY (Primary Dx) Social History Tobacco Use Types Packs/Day Years Used Date Smoking Tobacco: Never Assessed Comments Unknown Sex and Gender Information Value Date Recorded Sex Assigned at Not on file Legal Sex Female 4:21 AM [employer] Gender Identity Not on file Sexual Orientation Not on file documented as of this encounter Plan of Treatment Not on file documented as of this encounter Visit Diagnoses Diagnosis Calculus of kidney- Primary documented in this encounter Care Teams Fellmongery Worker Relationship Specialty Start Date End Date Charlie Mera MD NO ADDRESS ON FILE PCP - General 09/19/05 documented as of this encounter
--- OUTSIDE RECORDS SUMMARY | 2024-11-19 16:03 | XMS_ITS | Encounter Summary ---
Author Organization [employer] Address 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
--- OUTSIDE RECORDS SUMMARY | 2024-11-19 16:03 | XMS_ITS | Encounter Summary ---
Author Organization [employer] Address 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
--- OUTSIDE RECORDS SUMMARY | 2024-11-19 16:03 | XMS_ITS | Encounter Summary ---
Author Organization [employer] [facility] Address [address] [place] [address] Care Team Providers Care Ammonium Hydroxide Operator Name Role Phone Charlie Mera MD Primary Care Provider Unavailab le Encounter Details Date Type Department Care Team (Late st Contact Info) Description 09/07/2004 Outpatient Historical [facility] Maternal and Ground [address] [place] [address] Jackson Theodore MD [address] [place] [address] [place] [address] Social History Tobacco Use Types Packs/Day Years Used Date Smoking Tobacco: Never Assessed Comments Unknown Sex and Gender Information Value Date Recorded Sex Assigned at Not on file Legal Sex Female 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
--- OUTSIDE RECORDS SUMMARY | 2024-11-19 16:03 | XMS_ITS | Encounter Summary ---
Author Organization [facility] Address [address] [place] [address] Care Team Providers Care Ice Skating Coach Name Role Phone Charlie Mera MD Primary Care Provider Unavailab le Encounter Details Date Type Department Care Team (Late st Contact Info) Description 08/31/[address] 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
--- OUTSIDE RECORDS SUMMARY | 2024-11-19 16:03 | XMS_ITS | Encounter Summary ---
Author Organization [facility] Address [address] [place] [address] Care Team Providers Care Plumber Apprentice Name Role Phone Ute Betancourt NP Primary Care Provider [phone] Lina Arboleda MD Unavailable [phone] Orly Michaud MD Unavailable [phone] Encounter Details Date Type Department Care Team (Late st Contact Info) Description 10/06/2017 Hospital Follow-up Call [facility] [place] [address] Charlene Klein RN Social History Tobacco Use Types Packs/Day Years Used Date Smoking Tobacco: Every Day Electronic Cigarettes Smokeless Tobacco: Never Alcohol Use Standard Drinks/Week Comments No 0 (1 standard drink = 0.6 oz pur e alcohol) Comments Unknown Sex and Gender Information Value Date Recorded Sex Assigned at Female 11/07/2024 8:08 AM COTTON CANDY MAKER Legal Sex Female 3:59 PM CDT Gender Identity Not on file Sexual Orientation Not on file Occupation Industry Job Start Date Job End Date Not on file Not on file Not on file Not on file documented as of this encounter Plan of Treatment Not on file documented as of this encounter Visit Diagnoses Not on filedocumented in this encounter Additional Health Concerns Infection Onset Date Last Indicated Resolved Time COVID-19 Rule Out 05/16/2020 05/16/2020 05/16/2020 8:08 AM CDT COVID-19 Rule Out 07/25/2020 07/25/2020 07/27/2020 2:31 PM COTTON CANDY MAKER COVID-19 Rule Out 02/16/2021 02/16/2021 02/16/2021 9:46 AM CDT COVID-19 Rule Out 05/18/2021 05/18/2021 05/19/2021 4:06 PM CDT documented as of this encounter Care Teams Plumber Apprentice Relationship Specialty Start Date End Date Ute Betancourt NP [address] [facility] [address] [place] [address] PCP - General FAMILY PRACTICE 03/16/17 Lina Arboleda MD [address] [facility]. [address] [place] [address] [place] Commercial Front Load Operator CARDIOVASCULAR DISEASE 03/28/17 Orly Michaud MD [address] [facility] [address] [place] [address] Referring Physician GASTROENTEROLOGY 08/24/19 documented as of this encounter
--- OUTSIDE RECORDS SUMMARY | 2024-11-19 16:03 | XMS_ITS | Encounter Summary ---
Author Organization [facility] Address [address] [place] [address] Care Team Providers Care Solar Energy System Installer Helper Name Role Phone Charlie Mera MD Primary Care Provider Unavailab le Encounter Details Date Type Department Care Team (Late st Contact Info) Description 05/04/2004 Outpatient Historical [facility] [address] [place] [phone] Jb Blanco MD [address] [address] Social History Tobacco Use Types Packs/Day Years Used Date Smoking Tobacco: Never Assessed Comments Unknown Sex and Gender Information Value Date Recorded Sex Assigned at Not on file Legal Sex Female 4:21 AM POLE INSPECTOR Gender Identity Not on file Sexual Orientation Not on file documented as of this encounter Plan of Treatment Not on file documented as of this encounter Visit Diagnoses Not on filedocumented in this encounter Care Teams Solar Energy System Installer Helper Relationship Specialty Start Date End Date Charlie Mera MD NO ADDRESS ON FILE PCP - General 09/19/05 documented as of this encounter
--- OUTSIDE RECORDS SUMMARY | 2024-11-19 16:03 | XMS_ITS | Encounter Summary ---
Author Organization [facility] [facility] Address [address] [place] [address] Care Team Providers Care Chiller Hand Name Role Phone Charlie Mera MD Primary Care Provider Unavailab le Encounter Details Date Type Department Care Team (Late st Contact Info) Description 06/13/2004 Outpatient Historical [facility] Maternal and Ground Floor [address] [place] [address] Jackson Theodore MD [address] [place] [address] [place] [address] Social History Tobacco Use Types Packs/Day Years Used Date Smoking Tobacco: Never Assessed Comments Unknown Sex and Gender Information Value Date Recorded Sex Assigned at Not on file Legal Sex Female 4:21 AM PRINTING ROLLER POLISHER Gender Identity Not on file Sexual Orientation Not on file documented as of this encounter Plan of Treatment Not on file documented as of this encounter Visit Diagnoses Not on filedocumented in this encounter Care Teams Chiller Hand Relationship Specialty Start Date End Date Charlie Mera MD NO ADDRESS ON FILE PCP - General 09/19/05 documented as of this encounter
--- OUTSIDE RECORDS SUMMARY | 2024-11-19 16:03 | XMS_ITS | Encounter Summary ---
Author Organization [employer] Address [address] [place] [address] Care Team Providers Care Architect Marine Name Role Phone Charlie Mera MD Primary Care Provider Mary tapia Encounter Details Date Type Department Care Team (Latest Contact Info) Description 06/20/2004 Outpatient Historical HIS PATIENT IN A BED Jackson Theodore MD [address] [facility] [address] [place] [phone] OTHER CURR COND-ANTEPARTUM (Primary Dx) Social History Tobacco Use Types Packs/Day Years Used Date Smoking Tobacco: Never Assessed Comments Unknown Sex and Gender Information Value Date Recorded Sex Assigned at Not on file Legal Sex Female 4:21 AM ASSISTANT TEACHER PRIMARY Gender Identity Not on file Sexual Orientation Not on file documented as of this encounter Plan of Treatment Not on file documented as of this encounter Visit Diagnoses Diagnosis Other current maternal conditions classifiable elsewhere, antepartum- Primary documented in this encounter Care Teams Architect Marine Relationship Specialty Start Date End Date Charlie Mera MD NO ADDRESS ON FILE PCP - General 09/19/05 documented as of this encounter
--- OUTSIDE RECORDS SUMMARY | 2024-11-19 16:03 | XMS_ITS | Clinical Summary ---
Author Organization [facility] Address [address] [facility] [place] [address] Care Team Providers Care Biomass Technician Name Role Phone Ute Betancourt RN ADMISSION-PACK CHANGER Primary Care Provider Source Comments [facility],non-owned Affiliates and Associated Physician Practices is amultiple site organization consisting of ambulatory clinics and hospital sitesin [place] and [place]. This disclosure is being madepursuant to the Care Everywhere program and may not contain all information available regarding this patient. Last updated 18.[facility] Allergies Active Allergy Reactions Criticality Noted Date Comments Sulfa Drugs Anaphylaxis High 06/02/2010 Medications * Be aware that medications may not be up to date on this document. Alwaysverify current medications with the patient. Medication Sig Dispensed Refills Start Date End Date Status linaCLOtide (LINZESS) 290 MCG capsuleIndications:C hronic Idiopathic Constipation Take 290 mcg by mouth daily before breakfast Take on an empty stomach at least 30 minutes prior to first meal of the day. Reasons: Chronic Constipation of Unknown Cause Active mirtazapine (REMERON) 30 MG tabletIndications:Mo od Disorder Take 1 tablet by mouth at bedtime Reasons: Mood Disorder 30 tablet 1 05/25/2020 Active Additional Information Patient taking differently: 7 mgOral AT BEDTIME, Indications: Mood Disorder, Reported on 09/29/2021 pantoprazole EC (PROTONIX) 40 MG tabletIndications:Ga stric Hypersecretory Conditions Take 1 tablet by mouth once daily Reasons: Excess Stomach Secretions 30 tablet 1 05/26/2020 Active furosemide (LASIX) 40 MG tablet 40 mg once daily 02/01/2021 Active glycopyrrolate (ROBINUL) 1 MG tablet Take 1 mg by mouth once daily as needed Active hydrOXYzine hcl (ATARAX) 25 MG tablet Take 25 mg by mouth every 6 hours as needed 11/17/2020 Active potassium chloride ER (KLOR-CON M) 20 MEQ tablet 20 mEq 3 times daily 02/14/2021 Active rOPINIRole (REQUIP) 0.5 MG tablet TAKE 1 TABLET BY MOUTH EVERY DAY AT BEDTIME 01/25/2021 Active sucralfate (CARAFATE) 1 GM tablet Take 1 g by mouth as needed Active Melatonin 10 MG Take 10 mg by mouth once daily Active biotin 5 MG tablet Take 5,000 mcg by mouth once daily Active folic acid 400 MCG tablet Take 400 mcg by mouth once daily Active Turmeric Curcumin 500 MG Take 3 tablets by mouth 2 times daily Active vitamin D, cholecalciferol, 50 MCG (2000 UT) tablet Take 2,000 Units by mouth once daily Active Probiotic Product (PROBIOTIC DAILY PO) Take by mouth once daily Active topiramate (TOPAMAX) 100 MG tablet Take 150 mg by mouth 2 times daily Active citalopram (CELEXA) 40 MG tablet Take 40 mg by mouth once daily Active Pyridoxine HCl (VITAMIN B6 PO) Take by mouth once daily Active vitamin E (TOCOPHERYL) 1000 UNIT capsule Take 1,000 Units by mouth once daily Active clonazePAM (KLONOPIN) 0.5 MG tabletIndications:Ch ronic motor tic,Myoclonus Take 0.5 mg three times daily for 4 (four) days, then 0.5 mg twice daily for 4 (four) days and 0.5 mg daily for 4 (four) days and stop it. 30 tablet 01/12/2022 Active guanFACINE CR 24hr (Intuniv) 1 MG tabletIndications:ti cs Take 1 (one) tablet by mouth every morning Reasons: tics 30 tablet 4 10/29/2022 Active Active Problems Problem Noted Date Diagnosed Date Elevated liver enzymes 09/29/2021 Chronic kidney disease 08/30/2021 Fatty liver 11/28/2020 Overview (12/14/2021): 12/14/21 Fibroscan CAP 278, LSM 5.9 kPa Bipolar affective disorder, current episode mixe d 05/16/2020 Bipolar disorder 03/27/2012 Myoclonus 06/07/2010 Immunizations Name Administration Dates Next Due Kristaned Aide primary monoval ent 12+ yr 0.3mL Purple cap 04/19/2021,03/29/2021 Social History Tobacco Use Types Packs/Day Years [...] cm (5' 6 ) 09/29/2021 10:46 AM TOP AND TRIM WORKER Body Mass Index 30.21 09/29/2021 10:46 AM TOP AND TRIM WORKER Plan of Treatment Health Maintenance Due Date Last Done Comments COLOGUARD (AGES 45-75) - COL ON CA SCREENING 1970 COLON MONITORING 1970 COLONOSCOPY - COLON CA SCREENING 1970 CT COLONOGRAPHY - COLON CA SCREENING 1970 Colorectal Cancer Screening 1970 FIT - COLON CA SCREENING 1970 FLEX SIG - COLON CA SCREENING 1970 MAMMOGRAM 1970 MEDICARE AWV 12 MONTHS 1970 PAP SMEAR 1970 HIV SCREENING 1985 DTAP/TDAP/TD VACCINES (1 - Tdap) 1989 HEPATITIS B VACCINE (1 of 3 - 19+ 3-dose series) 1989 PNEUMOCOCCAL VACCINE 50+ (1 of 1 - PCV) 2020 ZOSTER VACCINE (1 of 2) 2020 COVID-19 VACCINE (3 - 2023-2 5 season) 2024 04/19/2021, 03/29/2021 INFLUENZA VACCINE (#1) 2024 MEDICARE AWV CALENDAR YEAR 2024 LIPID TESTING 05/21/2025 05/21/2020, 05/18/2020 HEPATITIS C SCREENING Completed 09/29/2021 HIB VACCINE Aged Out No longer eligi ble based on patient's age to complete this topic HPV VACCINE Aged Out No longer eligi ble based on patient's age to complete this topic MENINGOCOCCAL (Group B) VACCINE Aged Out No longer eligible b ased on patient's age to complete this topic MENINGOCOCCAL VACCINE Aged Out No carlos olivier eligible based on patient's age to complete this topic Goals Goal Patient Goal Type Associated Problems Recent Progress Patient-Stated? Author Medication Management General On track( 022 11:05 AM TOP AND TRIM WORKER) No Ze Michaels, RN Note: Expected end date: Interventions: Take all medications as prescribed Let your doctor know right away about any changes in your medications Make sure to request a refill of your medication at least one week prior to your last dose Procedures Procedure Name Priority Date/Time Associated Diagnosis Comments HEPATITIS C ANTIBODY Routine 09/29/2021 1:12 PM TOP AND TRIM WORKER Elevated liver enzymes LIPID PROFILE Routine 05/21/2020 1:24 AM CDT from Last 3 Months or Most Recently Relevant to Health Maintenance Results * HEPATITIS C ANTIBODY (09/29/2021 1:12 PM TOP AND TRIM WORKER) Hepatitis C Antibody Non-react robert Non-reac tive 09/29/2021 4:27 PM TOP AND TRIM WORKER [facility] Comment:Hepatitis C Antibody screen indicates no serologic evidence of past or current infection with Hepatitis C Virus. Patients with unexplained liver disease who are immunocompromised or suspected of having acute Hepatitis C infection may benefit from Nucleic Acid Test (ASIA) for Hepatitis C Viral RNA to confirm Hepatitis C status. Blood BLOOD SPECIMEN / Unknown Lab Venipuncture / Unknown 09/29/2021 1:12 PM TOP AND TRIM WORKER 09/29/2021 2:31 PM TOP AND TRIM WORKER Abby Zuniga RN ADMISSION-PACK CHANGER LAB - CHEMI STRY ORDERABLES [facility] [address] [place] [address], [facility] [phone] * LIPID PROFILE (05/21/2020 1:24 AM CDT) [facility] Cholesterol 173 <200 mg/dL 05/21/2020 1:51 AM CDT [facility] Triglycerides 120 <150 mg/dL 05/21/2020 1:51 AM CDT [facility] HDL Cholesterol 62 >40 mg/dL 0 1:51 AM CDT [facility] LDL Calculated 87 <130 mg/dL 05/21/2020 1:51 AM CDT [facility] VLDL Calculated 24 <=30 mg/dL 0 1:51 AM CDT [facility] Chol HDL Ratio 2.8 <4.5 05/21/2020 1:51 AM CDT [facility] LDL/HDL Ratio 1.4 <5.0 05/21/2020 1:51 AM CDT [facility] Blood BLOOD SPECIMEN / Unknown Venipuncture / Unknown 05/21/2020 1:24 AM CDT 05/21/2020 1:30 AM CDT Elie Galicia MD LAB - CHEMISTRY ANGELINA MUNROE [facility] [address] [place] [address] from Last 3 Months or Most Recently Relevant to Health Maintenance Advance Directives * Full Code (Latest Code Status on File) Date Activated Date Inactivated Comments 05/16/2020 11:13 PM 05/25/2020 7:27 PM Care Teams Biomass Technician Relationship Specialty Start Date End Date Ute Betancourt APRN-MARITO [address] [place], [place] [id number] PCP - General 03/25/18
--- OUTSIDE RECORDS SUMMARY | 2024-11-19 16:03 | XMS_ITS | Encounter Summary ---
Author Organization [facility] Address [address] [place] [address] Care Team Providers Care Dental Therapist Name Role Phone Charlie Mera MD Primary Care Provider Mary le Encounter Details Date Type Department Care Team (Late st Contact Info) Description 06/08/2004 Outpatient Historical [facility] Blanco, Jb Garcia MD [address] [facility] [address] [address] [place] [address] PREG STATE, INCIDENTAL (Primary Dx) Social History Tobacco Use Types Packs/Day Years Used Date Smoking Tobacco: Never Assessed Comments Unknown Sex and Gender Information Value Date Recorded Sex Assigned at Not on file Legal Sex Female 4:21 AM WHEEL ALIGNMENT TECHNICIAN Gender Identity Not on file Sexual Orientation Not on file documented as of this encounter Plan of Treatment Not on file documented as of this encounter Visit Diagnoses Diagnosis state, incidental- Primary documented in this encounter Care Teams Dental Therapist Relationship Specialty Start Date End Date Charlie Mera MD NO ADDRESS ON FILE PCP - General 09/19/05 documented as of this encounter
--- OUTSIDE RECORDS SUMMARY | 2024-11-19 16:03 | XMS_ITS | Encounter Summary ---
Author Organization [facility] Address [address] [place] [address] Care Team Providers Care Ditch Rider Name Role Phone Charlie Mera MD Primary Care Provider Unavailab le Encounter Details Date Type Department Care Team (Late st Contact Info) Description 06/29/2004 Outpatient Historical [facility] [address] [place] [phone] Jb Blanco MD [address] [phone] Social History Tobacco Use Types Packs/Day Years Used Date Smoking Tobacco: Never Assessed Comments Unknown Sex and Gender Information Value Date Recorded Sex Assigned at Not on file Legal Sex Female 4:21 AM PNEUMATIC TUBE FITTER Gender Identity Not on file Sexual Orientation Not on file documented as of this encounter Plan of Treatment Not on file documented as of this encounter Visit Diagnoses Not on filedocumented in this encounter Care Teams Ditch Rider Relationship Specialty Start Date End Date Charlie Mera MD NO ADDRESS ON FILE PCP - General 09/19/05 documented as of this encounter
--- OUTSIDE RECORDS SUMMARY | 2024-11-19 16:03 | XMS_ITS | Encounter Summary ---
Author Organization [employer] Address [address] [place] [address] Care Team Providers Care Caustic Cresylate Shift Superintendent Name Role Phone Charlie Mera MD Primary Care Provider Mary tapia Encounter Details Date Type Department Care Team (Late st Contact Info) Description 09/05/2004 Outpatient Historical [facility] Gunner Alvarez MD [address] [place] [address] SUPERVIS OTHER NORMAL PREG (Primary Dx) Social History Tobacco Use Types Packs/Day Years Used Date Smoking Tobacco: Never Assessed Comments Unknown Sex and Gender Information Value Date Recorded Sex Assigned at Not on file Legal Sex Female 4:21 AM SPINNING BATH PATROLLER Gender Identity Not on file Sexual Orientation Not on file documented as of this encounter Plan of Treatment Not on file documented as of this encounter Visit Diagnoses Diagnosis Supervision of other normal - Primary documented in this encounter Care Teams Caustic Cresylate Shift Superintendent Relationship Specialty Start Date End Date Charlie Mera MD NO ADDRESS ON FILE PCP - General 09/19/05 documented as of this encounter
--- OUTSIDE RECORDS SUMMARY | 2024-11-19 16:03 | XMS_ITS | Encounter Summary ---
Author Organization [facility] Address [address] [place] [address] Care Team Providers Care Linux Kernel Developer Name Role Phone Charlie Mera MD Primary Care Provider Mary le Encounter Details Date Type Department Care Team (Late st Contact Info) Description 07/20/2004 Outpatient Historical [facility] Burak Ortiz MD NO ADDRESS ON FILE SUPERVIS OTHER NORMAL PREG (Primary Dx) Social History Tobacco Use Types Packs/Day Years Used Date Smoking Tobacco: Never Assessed Comments Unknown Sex and Gender Information Value Date Recorded Sex Assigned at Not on file Legal Sex Female 4:21 AM CROWN CERAMIST Gender Identity Not on file Sexual Orientation Not on file documented as of this encounter Plan of Treatment Not on file documented as of this encounter Visit Diagnoses Diagnosis Supervision of other normal - Primary documented in this encounter Care Teams Linux Kernel Developer Relationship Specialty Start Date End Date Charlie Mera MD NO ADDRESS ON FILE PCP - General 09/19/05 documented as of this encounter
--- OUTSIDE RECORDS SUMMARY | 2024-11-19 16:03 | XMS_ITS | Encounter Summary ---
Author Organization [facility] Address [address] [facility] [place] [address] Care Team Providers Care Linux Admin Engineer Name Role Phone Ute Betancourt MANUFACTURED BUILDINGS REPAIRER-ELECTRICIAN APPRENTICE Primary Care Provider Reason for Visit * Reason Onset Date Comments Refill Request 12/21/2021 Encounter Details Date Type Department Care Team (Late st Contact Info) Description 12/21/2021 Telephone [facility] [address] [place] [address] Artemio Fallon MD [address] [place] [address] Refill Request Social History Tobacco Use Types Packs/Day Years Used Date Smoking Tobacco: Former Cigarettes Q uit: 04/01/2014 Smokeless Tobacco: Never Alcohol Use Standard Drinks/Week Comments Not Currently 0 (1 standard drink = 0.6 oz pur e alcohol) OCCASIONAL, 1-2/YEAR Sex and Gender Information Value Date Recorded Sex Assigned at Not on file Gender Identity Not on file Sexual Orientation Not on file documented as of this encounter Functional Status Functional Status Response Date of Assess ment Is person deaf or have serious hearing difficult y? No 05/17/2020 Is person blind or have serious difficulty seein g? No 05/17/2020 Does person have serious dif ficulty walking/climbing stairs? No 05/17/2020 Does person have difficulty dressing/bathing? No 05/17/2020 Does person have difficulty doing errands alone? No 05/17/2020 Cognitive Status Response Date of Assessm ent Does person have difficulty concentrating/remembering/making decisions? Yes 05/17/2020 documented as of this encounter Miscellaneous Notes * Telephone Encounter - Stephany Jacinto - 12/21/2021 8:34 AM CDT Good Morning Spoke with patient and patient wanted to know was a request sent to refill her prescription. documented in this encounter Plan of Treatment Not on file documented as of this encounter Goals Goal Patient Goal Type Associated Problems Recent Progress Patient-Stated? Author Medication Management General On track( 022 11:05 AM CAPTAIN ROOM SERVICE) No Ze Michaels, RN Note: Expected end date: Interventions: Take all medications as prescribed Let your doctor know right away about any changes in your medications Make sure to request a refill of your medication at least one week prior to your last dose documented as of this encounter Visit Diagnoses Not on filedocumented in this encounter Care Teams Linux Admin Engineer Relationship Specialty Start Date End Date Ute Betancourt APRN-MARITO [address] [place] [address] [address] [place], [place] [id number] PCP - General 03/25/18 documented as of this encounter
--- OUTSIDE RECORDS SUMMARY | 2024-11-19 16:03 | XMS_ITS | Encounter Summary ---
Author Organization [facility] Address [address] [place] [address] Care Team Providers Care Act Tutor Name Role Phone Charlie Mera MD Primary Care Provider Unavailab le Encounter Details Date Type Department Care Team (Late st Contact Info) Description 05/04/2004 Outpatient Historical [facility] [address] [place] [phone] Jb Blanco MD [address] [address] Social History Tobacco Use Types Packs/Day Years Used Date Smoking Tobacco: Never Assessed Comments Unknown Sex and Gender Information Value Date Recorded Sex Assigned at Not on file Legal Sex Female 4:21 AM TELETYPE ADJUSTER Gender Identity Not on file Sexual Orientation Not on file documented as of this encounter Plan of Treatment Not on file documented as of this encounter Visit Diagnoses Not on filedocumented in this encounter Care Teams Act Tutor Relationship Specialty Start Date End Date Charlie Mera MD NO ADDRESS ON FILE PCP - General 09/19/05 documented as of this encounter
--- OUTSIDE RECORDS SUMMARY | 2024-11-19 16:03 | XMS_ITS | Encounter Summary ---
Author Organization [employer] Address [address] [place] [address] Care Team Providers Care Blueprinting And Photocopy Supervisor Name Role Phone Charlie Mera MD Primary Care Provider Mary le Encounter Details Date Type Department Care Team (Late st Contact Info) Description 05/04/2004 Outpatient Historical [facility] Jb Blanco MD [address] [facility] [address] [address] [place] [address] SUPERVIS OTHER NORMAL PREG (Primary Dx) Social History Tobacco Use Types Packs/Day Years Used Date Smoking Tobacco: Never Assessed Comments Unknown Sex and Gender Information Value Date Recorded Sex Assigned at Not on file Legal Sex Female 4:21 AM BIBLE WORKER Gender Identity Not on file Sexual Orientation Not on file documented as of this encounter Plan of Treatment Not on file documented as of this encounter Visit Diagnoses Diagnosis Supervision of other normal - Primary documented in this encounter Care Teams Blueprinting And Photocopy Supervisor Relationship Specialty Start Date End Date Charlie Mera MD NO ADDRESS ON FILE PCP - General 09/19/05 documented as of this encounter
--- OUTSIDE RECORDS SUMMARY | 2024-11-19 16:03 | XMS_ITS | Encounter Summary ---
Author Organization [employer] Address [address] [place] [address] Care Team Providers Care Electrical Drafter Name Role Phone Charlie Mera MD Primary Care Provider Mary le Encounter Details Date Type Department Care Team (Late st Contact Info) Description 06/29/2004 Outpatient Historical [facility], [address] Jb Blanco MD 1400 [facility] [address] [address] [place] [address] PREG STATE, INCIDENTAL (Primary Dx) Social History Tobacco Use Types Packs/Day Years Used Date Smoking Tobacco: Never Assessed Comments Unknown Sex and Gender Information Value Date Recorded Sex Assigned at Not on file Legal Sex Female 4:21 AM CLINICAL SECRETARY Gender Identity Not on file Sexual Orientation Not on file documented as of this encounter Plan of Treatment Not on file documented as of this encounter Visit Diagnoses Diagnosis state, incidental- Primary documented in this encounter Care Teams Electrical Drafter Relationship Specialty Start Date End Date Charlie Mera MD NO ADDRESS ON FILE PCP - General 09/19/05 documented as of this encounter
--- OUTSIDE RECORDS SUMMARY | 2024-11-19 16:03 | XMS_ITS | Encounter Summary ---
Author Organization [email or web address] Address 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
--- OUTSIDE RECORDS SUMMARY | 2024-11-19 16:03 | XMS_ITS | Referral Summary ---
Author Organization [facility] Address [address] [place] [address] Care Team Providers Care Diamond Finishing Supervisor Name Role Phone Ute Betancourt SENIOR GRANTS OFFICER-PIT STEWARD Primary Care Provider Source Comments [facility],non-owned Affiliates and Associated Physician Practices is amultiple site organization consisting of ambulatory clinics and hospital sitesin [place], [place], [place] and [place]. This disclosure is being madepursuant to the Care Everywhere program and may not contain all information available regarding this patient. Last updated 18.[facility] Allergies Active Allergy Reactions Criticality Noted Date [...] 06/07/2010 Immunizations Name Administration Dates Next Due Coved Pfizer primary monoval ent 12+ yr 0.3mL Purple [...] cm (5' 6 ) 09/29/2021 10:46 AM VISITOR SERVICE ASSISTANT Body Mass Index 30.21 09/29/2021 10:46 AM VISITOR SERVICE ASSISTANT Functional Status Functional Status Response Date of [...] person have difficulty concentrating/remembering/making decisions? Yes 05/17/2020 Plan of Treatment Not on file Goals Goal Patient Goal Type Associated Problems Recent Progress Patient-Stated? Author Medication Management General On track( 022 11:05 AM VISITOR SERVICE ASSISTANT) No Ze Michaels, RN Note: Expected end date: Interventions: Take all medications as prescribed Let your doctor know right away about any changes in your medications Make sure to request a refill of your medication at least one week prior to your last dose Procedures Procedure Name Priority Date/Time Associated Diagnosis Comments HEPATITIS C ANTIBODY Routine 09/29/2021 1:12 PM VISITOR SERVICE ASSISTANT Elevated liver enzymes LIPID PROFILE Routine 05/21/2020 1:24 AM CDT from Last 3 Months or Most Recently Relevant to Health Maintenance Results * HEPATITIS C ANTIBODY (09/29/2021 1:12 PM VISITOR SERVICE ASSISTANT) Pathologist [facility] Hepatitis C Antibody Non-react robert Non-reac tive 09/29/2021 4:27 PM VISITOR SERVICE ASSISTANT [facility] Comment:Hepatitis C Antibody screen indicates no serologic evidence of past or current infection with Hepatitis C Virus. Patients with unexplained liver disease who are immunocompromised or suspected of having acute Hepatitis C infection may benefit from Nucleic Acid Test (ASIA) for Hepatitis C Viral RNA to confirm Hepatitis C status. Blood BLOOD SPECIMEN / Unknown Lab Venipuncture / Unknown 09/29/2021 1:12 PM VISITOR SERVICE ASSISTANT 09/29/2021 2:31 PM VISITOR SERVICE ASSISTANT Abby Zuniga SENIOR GRANTS OFFICER-PIT STEWARD LAB - CHEMI STRY ORDERABLES Performing Organization Address City/State/[facility] Co de Phone Number [address] [address], [facility] [phone] * LIPID PROFILE (05/21/2020 1:24 AM CDT) Cholesterol 173 <200 mg/dL 05/21/2020 1:51 AM CDT [facility] Triglycerides 120 <150 mg/dL 05/21/2020 1:51 AM CDT [facility] HDL Cholesterol 62 >40 mg/dL 0 1:51 AM CDT [facility] LDL Calculated 87 <130 mg/dL 05/21/2020 1:51 AM CDT [facility] VLDL Calculated 24 <=30 mg/dL 0 1:51 AM CDT [facility] Chol HDL Ratio 2.8 <4.5 05/21/2020 1:51 AM CDT [facility] LDL/HDL Ratio 1.4 <5.0 05/21/2020 1:51 AM CDT [facility] Blood BLOOD SPECIMEN / Unknown Venipuncture / Unknown 05/21/2020 1:24 AM CDT 05/21/2020 1:30 AM CDT Elie Galicia MD LAB - CHEMISTRY [facility] [address] [place] [address] from Last 3 Months or Most Recently Relevant to Health Maintenance Advance Directives * Full Code (Latest Code Status on File) Date Activated Date Inactivated Comments 05/16/2020 11:13 PM 05/25/2020 7:27 PM Care Teams Diamond Finishing Supervisor Relationship Specialty Start Date End Date Ute Betancourt APRN-MARITO [address] [facility] [address] [place] [id number] PCP - General 03/25/18
--- OUTSIDE RECORDS SUMMARY | 2024-11-19 16:03 | XMS_ITS | Encounter Summary ---
Author Organization [employer] Address 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
--- OUTSIDE RECORDS SUMMARY | 2024-11-19 16:03 | XMS_ITS | Encounter Summary ---
Author Organization [facility] Address 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
--- OUTSIDE RECORDS SUMMARY | 2024-11-19 16:03 | XMS_ITS | Encounter Summary ---
Author Organization [employer] Address 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
--- OUTSIDE RECORDS SUMMARY | 2024-11-19 16:03 | XMS_ITS | Encounter Summary ---
Author Organization [facility] Address [address] [place] [address] Care Team Providers Care Senior Oracle Developer Name Role Phone Charlie Mera MD Primary Care Provider Unavail le Encounter Details Date Type Department Care Team (Late st Contact Info) Description 06/02/2004 Outpatient Historical [facility] [address] [facility] 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
--- OUTSIDE RECORDS SUMMARY | 2024-11-19 16:03 | XMS_ITS | Encounter Summary ---
Author Organization [facility] Address [address] [place] [address] Care Team Providers Care Integration Engineer Name Role Phone Ute Betancourt NP Primary Care Provider Lina Arboleda MD Unavailable [phone] Orly Michaud MD Unavailable [phone] Encounter Details Date Type Department Care Team (Late st Contact Info) Description 04/01/2017 Abstract [facility] AT [address] [address] Blessing Turcios [place] Social History Tobacco Use Types Packs/Day Years Used Date Smoking Tobacco: Every Day Electronic Cigarettes Smokeless Tobacco: Never Alcohol Use Standard Drinks/Week Comments No 0 (1 standard drink = 0.6 oz pur e alcohol) Comments Unknown Sex and Gender Information Value Date Recorded Sex Assigned at Female 11/07/2024 8:08 AM DIRECTOR AUTO Legal Sex Female 3:59 PM CDT Gender Identity Not on file Sexual Orientation Not on file documented as of this encounter Plan of Treatment Not on file documented as of this encounter Procedures Procedure Name Priority Date/Time Associated Diagnosis Comments CBC (OUTSIDE LAB) Routine 03/26/2017 BASIC METABOLIC PANEL Routine 03/26/2017 documented in this encounter Results * (ABNORMAL) BASIC METABOLIC PANEL (03/26/2017) SODIUM S/P/B 140 POTASSIUM S/P/B 3.4 CO2 23 CHLORIDE S/P/B 104 GLUCOSE 94 CALCIUM S/P/B 1.21mmol/l BUN 18 CREATININE S/P/B 1.1(A) 0.5 - 1.0 03/26/2017 [facility] LAB[facility]ATORY Final Result * CBC (OUTSIDE LAB) (03/26/2017) WBC 7.0 HGB 12.8 HCT 36.2 PLT 172 03/26/2017 us Doc [facility] Abstract LAB-OUTSIDE/ABSTRACTED Final Result documented in this encounter Visit Diagnoses Not on filedocumented in this encounter Additional Health Concerns Infection Onset Date Last Indicated Resolved Time COVID-19 Rule Out 05/16/2020 05/16/2020 05/16/2020 8:08 AM CDT COVID-19 Rule Out 07/25/2020 07/25/2020 07/27/2020 2:31 PM DIRECTOR AUTO COVID-19 Rule Out 02/16/2021 02/16/2021 02/16/2021 9:46 AM CDT COVID-19 Rule Out 05/18/2021 05/18/2021 05/19/2021 4:06 PM CDT documented as of this encounter Care Teams Integration Engineer Relationship Specialty Start Date End Date Ute Betancourt NP [address] [facility] [address] [place] [address] PCP - General FAMILY PRACTICE 03/16/17 Lina Arboleda MD [address] [facility]. [address] [place] [address] [place] [facility] CARDIOVASCULAR DISEASE 03/28/17 Orly Michaud MD [address] [facility] [address] [place] [address] Referring Physician GASTROENTEROLOGY 08/24/19 documented as of this encounter
--- OUTSIDE RECORDS SUMMARY | 2024-11-19 16:03 | XMS_ITS | Encounter Summary ---
Author Organization [facility] Address 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
--- OUTSIDE RECORDS SUMMARY | 2024-11-19 16:03 | XMS_ITS | Encounter Summary ---
Author Organization [employer] Address [address] [place] [address] Care Team Providers Care Assurance Senior Manager Insurance Name Role Phone Charlie Mera MD Primary Care Provider Unavailab le Encounter Details Date Type Department Care Team (Late st Contact Info) Description 05/04/2004 Outpatient Historical [facility], [address] Jb Blanco MD [address] [facility] [address] [place] [phone] Sangita Bravo, DO [address] [facility] [address] [address] PREG STATE, INCIDENTAL (Primary Dx) Social History Tobacco Use Types Packs/Day Years Used Date Smoking Tobacco: Never Assessed Comments Unknown Sex and Gender Information Value Date Recorded Sex Assigned at Not on file Legal Sex Female 4:21 AM 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
--- OUTSIDE RECORDS SUMMARY | 2024-11-19 16:03 | XMS_ITS | Encounter Summary ---
Author Organization [employer] Address 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
--- OUTSIDE RECORDS SUMMARY | 2024-11-19 16:04 | XMS_ITS ---
Author Organization Formerly [facility], [facility] Address [address] [place] [address] Care Team Providers Care Records Management Coordinator Name Role Phone Shelton Kraus Primary Care Provider [phone] Allergies Allergen (clinical drug ingredient) Drug/Non Drug Allergy documented on EMR Reaction Allergy Type Onset Date Status Substance with sulfonamide structure and antibacterial mechanism of action (substance) Sulfa Antibiotics hives Drug Allergy Active REASON FOR VISIT 3 Month Psych F/U & Med Refill Medications Medication SIG (Take, Route, Frequency, Duration) Notes Start Date End Date Status Topiramate 100 MG TAKE 1 AND 1/2 TABLETS BY MOUTH EVERY DAY AT BEDTIME for 90 Please remind client to schedule f/u soon. Active Eszopiclone 2 MG 1 tablet immediately before bedtime for treatment of insomnia Orally Once a day. Do NOT take with opioids or alcohol. for 30 days 08/10/2024 Active Lasix 40 MG 1 tablet Orally Once a day for 30 day(s) morning Active hydrOXYzine Pamoate 25 MG 1 capsule Orally Three times a day for 90 days As needed for anxiety Active Lasix 20 MG 1 tablet Orally Once a day for 30 day(s) afternoon Active Pantoprazole Sodium 40 MG 1 tablet Orally Once a day for 30 day(s) takes twice a day Active Citalopram Hydrobromide 40 MG TAKE 1 TABLET BY MOUTH EVERY DAY for 90 Active ARIPiprazole 20 MG 1 tablet Orally Once a day for 90 days Active Potassium Chloride 20 MEQ 1 packet with food Orally Once a day for 30 day(s) Active Ropinirole Hydrochloride 0.5mg Active Robinul For stomach as needed Active Cyclobenzaprine HCl 10 MG 1 tablet at bedtime as needed Orally Once a day for 30 day(s) Active Diclofenac Client unsure of dose, unseen in external rx hx Active Encounters Encounter Location Date Provider Diagnosis [address] [place] [address] 08/10/2024 Sheltonlaura Kraus Bipolar II disorder F31.81 ; Panic disorder [episodic paroxysmal anxiety] F41.0 and Insomnia G47.00 Assessments Encounter Date Diagnosis (ICD Code) Assessment Notes Treatment Notes Treatment Clinical Notes Section Notes 08/10/2024 Bipolar II disorder (ICD-10 - F31.81) 08/10/2024 Panic disorder [episodic paroxysmal anxiety] (ICD-10 - F41.0) 08/10/2024 Insomnia (ICD-10 - G47.00) 08/10/[place]24 [place] [...] uses of medication, suicidal ideation with SSRIs, self-administration and compliance with medication along with how to safely store medication. Verbal informed consent obtained. Client agrees to return sooner if symptoms worsen or if suicidal or homicidal ideations occur. Client has the phone number to the 24-hour crisis line at [facility]. Questions addressed. Client verbalized understanding of all information and is agreeable to treatment plan. Plan Of Treatment Medication Medication Name Sig Start Date Stop Date Notes Eszopiclone 2 MG 1 tablet immediately before bedtime for treatment of insomnia Orally Once a day. Do NOT take with opioids or alcohol. for 30 days 08/10/2024 hydrOXYzine Pamoate 25 MG 1 capsule Oral ly Three times a day for 90 days Citalopram Hydrobromide 40 MG TAKE 1 TAB LET BY MOUTH EVERY DAY for 90 ARIPiprazole 20 MG 1 tablet Orally Once a day for 90 days Treatment Notes Assessment Notes [place] issues noted. Discussed sleep hygiene and caffeine intake with encouragement to limit electronic devices an hour before bed and to limit caffeine after 3:00pm. Exercise benefits for mood and health discussed. Psychoeducation regarding psychiatric illness provided. Client was educated about risks and benefits of medication, alternatives to medication, off label uses of medication, suicidal ideation with SSRIs, self-administration and compliance with medication along with how to safely store medication. Verbal informed consent obtained. Client agrees to return sooner if symptoms worsen or if suicidal or homicidal ideations occur. Client has the phone number to the 24-hour crisis line at [facility]. Questions addressed. Client verbalized understanding of all information and is agreeable to treatment plan. Next Appt Details Follow Up: 3 Months, Reason: Medication management - can be telehealth appt. or in office appt. Progress Notes * Anh ZENDEJASDOB: 1 (53 yo F)Acc No.[id number]:08/10/2024 Patient: Anh SIDDIQUI Provider: Arabella Kraus DNP, [facility]1970 A ge:53 Y S ex:Female Date:08/10/2024 Address:[address] [place] [address] [address] [id number] Subjective: * Chief Complaints: * 3 Month Psych F/U & Med Refill * HPI: D epression Screening: PHQ-9 L ittle interest or pleasure in doing things N ot at all, F eeling down, depressed, or hopeless N ot at all, T rouble falling or staying asleep, or sleeping too much N ot at all, F eeling tired or having little energy S everal days, P oor appetite or overeating S everal days, F eeling bad about yourself or that you are a failure, or have let yourself or your family down N ot at all, T rouble concentrating on things, such as reading the newspaper or watching television S everal days, M oving or speaking so slowly that other people could have noticed; or the opposite, being so fidgety or restless that you have been moving around a lot more than usual N ot at all, T houghts that you would be better off or of hurting yourself in some way N ot at all, T otal Score 3 , I nterpretation M inimal Depression. I ntervention D epression Screening Findings?Positive, F ollow-Up for Depression N o Referral necessary, patient involved in behavioral health treatment. C SSRS Interpretation and Follow Up Plan: CSSRS Interpretation and Follow Up Plan. CSSRS Interpretation and Follow Up Plan M oderate or High risk requires selection of a follow up plan C SSRS No/Low: intervention not needed at this time.? C onstitutional: Session conducted telephonically with client's consent. I've been doing really well. I've been feeling good. The only hiccup was I didn't get my back surgery. I was pissed at first. They found out my heart had a blockage and I have to get that fixed first. But my kids are doing good. My one son got a job at [employer]. My other son is working at the [employer] still. My daughter is coming in town September 03 so I get to see my granddaughter. I g ot my job review. 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 The patient was scheduled for a back surgery which was postponed due to the discovery of a heart condition. This was found during the pre-operative screening for the back surgery. The patient had a stress test done a week ago. The results of the stress test revealed that the heart is operating at 76 percent. The patient also mentioned that at some point, they had a heart attack in the past from the way the testing had presented to the doctors. The patient's back surgery has been rescheduled for December 01. The patient reported feeling upset when the surgery was cancelled but is not currently depressed. The patient is managing their emotions well and is hopeful about the future. States she is living with her parents and that they will be able to help her post surgery, plans to have L2-3 fused in November. S kathie she wakes up in the middle of the night in pain. She describes it as excruciating in how bad it is. States her grandbaby Consuelo Mcelroy is crawling and pulling up on things getting ready to walk, 10 months old. States her sons are doing great . That her one son Marcelino (19 yo) wants to do database security expert training and is looking at [employer]. That her 18 yo quit [employer] and is working at [employer]. Just celebrated one year anniversary with boyfriend. States her sons don't like him because he keeps telling her sons to join the . HISTORICAL BACKGROUND: Has had chronic insufficiency of liver and kidneys and medications have been adjusted to limit impact to these organs. Client sees specialists for this. 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 o Lsd/pcp did pcp when she was 21 years of age o Iv drugs no o Otc/rx drugs no Family history drug/alcohol abuse dad alcoholic Family history of suicide denies Family history of mental illness yes mother schizophrenic, dad and sister depression Past Psychiatric Hospitalizations/Counseling yes , age 17 she was hospitalized for 28 days Medical History PMD Dr Fox Education/High school/GED/college graduated from high school, has had a lot of college classes o Work history/current job doesn't work, worked a [employer] for a few months , worked at [employer] for about 13 years, she is on disability o Marital status was 8 years, 3 children, 19, 11, 10 o /legal/probation denies Describe your childhood in 2-3 words. Stressful, doesn't remember it, just bits and pieces Prior PSYCHOTROPIC Trials yes, but cannot remember names of them, one is Prozac Drugs/ETOH/caffeine use: Medical Marijuana, no ETOH Cig/Vape use: LMP: Hysterectomy Therapy: Not currently Medications effective: Yes Medications adherence: Yes Medication side effects: Denies Sleep: Good with Lunesta Appetite: Normal Depression: Good Anxiety: Good Anger/Irritability: Denies Hallucinations/Paranoia: Denies Suicidal ideation: Denies Homicidal ideation: Denies Medical concerns or hospitalizations: Ongoing lots chronic medical problems Any new medications from other providers: Denies, on a lot of medical medicines (added to chart) Doctors Neurologist: Artemio Donald MD Geophysical Prospecting Surveyor: Ramona Bhatt MD Digital Media Sales Consultant: Harley CAMEJO ([facility]) Urologist: [facility]. * ROS: P sych ROS: GI R eports, L iver dx. G U R eports, K idney Dx. M usculoskeletal R eports, c hronic pain. N eurological R eports, m yoclonic tics. H ematological/Lymphatic R eports, l ymphadema . * PSYCH ROS2: Elevated mood symptoms D enies. m ood swings D enies. T houghts of self harm D enies. D enies H omicidal thoughts. H yperactivity?Denies. I nattention D enies. D enies A nxiety. D enies A uditory/visual hallucinations. D enies D elusions. D enies D epressed mood. D enies D ifficulty sleeping, B jim with Lunesta. D enies E ating disorder. D enies L oss of appetite. D enies S ubstance abuse. D enies S uicidal thoughts. * Medical History: * Surgical History: t onsillectomy gallbladder removal appendix removal hysterectomy nerve stimulator in back surgery kidney stone removal (Left 2CM) Extracorporeal shock wave lithotripsy (ESWL) for kidney stones 2 laparotomy kidney lithotripsy * Hospitalization/Major Diagno stic Procedure: h ysterectomy appendix removal kidney stone removal (Left 2CM) kidney lithotripsy 2 laparotomy * Family History: F ather: alive. M other: alive. 2 sister(s) - healthy. 2 son(s) , 1 daughter(s) - healthy. . Family history drug/alcohol abuse dad alcoholic Family history of suicide denies Family history of mental illness yes mother schizophrenic, dad and sister depression. * Social History: P rimary Social History: L iving Arrangement L iving Arrangement: I ndependent Living, Dependent Living, L iving with: Pat johnson, Other:, I s this a supportive environment? Y es. A lcohol Use Alcohol Use Frequency: N ever. I llicit Substance Usage I llicit Substance Usage:?Yes, S ubstance Used: Pat hernandez I nterested in quitting: N o. E mployment Status E mployment Status: U nemployed. M eth yes age 23, did 3 times Lsd/pcp did pcp when she was 21 years of age Cigarette smoker just quit a month ago, started smoking 3 years ago a pack a day Education/High school/GED/college graduated from high school, has had a lot of college classes Work history/current job doesn't work, worked a [employer] for a few months , worked at [employer] for about 13 years, she is on disability Marital status was 8 years, 3 children, 19, 11, 10 /legal/probation denies. * Medications: T akingDiclofenac , Notes to Pharmacist: Client unsure of dose, unseen in external rx hxCyclobenzaprine HCl 10 MG Tablet 1 tablet at bedtime as needed Orally Once a day Robinul , Notes to Pharmacist: For stomach as neededPantoprazole Sodium 40 MG Tablet Delayed Release 1 tablet Orally Once a day , Notes to Pharmacist: takes twice a dayRopinirole Hydrochloride , Notes to Pharmacist: 0.5mgPotassium Chloride 20 MEQ Packet 1 packet with food Orally Once a day Lasix 20 MG Tablet 1 tablet Orally Once a day , Notes to Pharmacist: afternoonLasix 40 MG Tablet 1 tablet Orally Once a day , Notes to Pharmacist: morningTopiramate 100 MG Tablet TAKE 1 AND 1/2 TABLETS BY MOUTH EVERY DAY AT BEDTIME , Notes to Pharmacist: Please remind client to schedule f/u soon.Citalopram Hydrobromide 40 MG Tablet TAKE 1 TABLET BY MOUTH EVERY DAY ARIPiprazole 20 MG Tablet 1 tablet Orally Once a day Eszopiclone 2 MG Tablet 1 tablet immediately before bedtime for treatment of insomnia Orally Once a day. Do NOT take with opioids or alcohol. hydrOXYzine Pamoate 25 MG Capsule 1 capsule Orally Three times a day As needed for anxietyTaking Diclofenac , Notes to Pharmacist: Client unsure of dose, unseen in external rx hxTaking Cyclobenzaprine HCl 10 MG Tablet 1 tablet at bedtime as needed Orally Once a day Taking Robinul , Notes to Pharmacist: For stomach as neededTaking Pantoprazole Sodium 40 MG Tablet Delayed Release 1 tablet Orally Once a day , Notes to Pharmacist: takes twice a dayTaking Ropinirole Hydrochloride , Notes to Pharmacist: 0.5mgTaking Potassium Chloride 20 MEQ Packet 1 packet with food Orally Once a day Taking Lasix 20 MG Tablet 1 tablet Orally Once a day , Notes to Pharmacist: afternoonTaking Lasix 40 MG Tablet 1 tablet Orally Once a day , Notes to Pharmacist: morningTaking Topiramate 100 MG Tablet TAKE 1 AND 1/2 TABLETS BY MOUTH EVERY DAY AT BEDTIME , Notes to Pharmacist: Please remind client to schedule f/u soon.Taking Citalopram Hydrobromide 40 MG Tablet TAKE 1 TABLET BY MOUTH EVERY DAY Taking ARIPiprazole 20 MG Tablet 1 tablet Orally Once a day Taking Eszopiclone 2 MG Tablet 1 tablet immediately before bedtime for treatment of insomnia Orally Once a day. Do NOT take with opioids or alcohol. Taking hydrOXYzine Pamoate 25 MG Capsule 1 capsule Orally Three times a day As needed for anxiety * Allergies: S ulfa Antibiotics: hives - Allergyno[Allergies Verified] Objective: * Vitals: * Examination: G eneral Examination: Mental Status Exam A ttitude and Behavior C ooperativeMood S table, EuthymicAffect B road/FullSpeech A ppropriateThought Process C oherent and Goal DirectedHallucinations D eniesThought Content A ppropriateSuicidal Ideation D enies Current Thoughts/PlansHomicidal Ideation D enies Current IntentInsight F airJudgement F airSensorium and Cognition A lertOriented to P erson, Place, TimeAttention and Concentration N o DeficitsFund of Knowledge F air. Assessment: * Assessment: 1. B ipolar II disorder - F31.81 (Primary) 2 . P anic disorder [episodic paroxysmal anxiety] - F41.0 3 . I nsomnia - G47.00 Plan: * Treatment: 2. P anic disorder [episodic paroxysmal anxiety] Refill hydrOXYzine Pamoate Capsule, 25 MG, 1 capsule, Orally, Three times a day As needed for anxiety, 90 days, 270 Capsule, Refills 0. 3. I nsomnia Refill Eszopiclone Tablet, 2 MG, 1 tablet immediately before bedtime for treatment of insomnia, Orally, Once a day. Do NOT take with opioids or alcohol., 30 days, 30, Refills 2. 4. O thers Notes: [place]. Discussed sleep hygiene and caffeine intake with encouragement to limit electronic devices an hour before bed and to limit caffeine after 3:00pm. Exercise benefits for mood and health discussed. Psychoeducation regarding psychiatric illness provided. Client was educated about risks and benefits of medication, alternatives to medication, off label uses of medication, suicidal ideation with SSRIs, self-administration and compliance with medication along with how to safely store medication. Verbal informed consent obtained. Client agrees to return sooner if symptoms worsen or if suicidal or homicidal ideations occur. Client has the phone number to the 24-hour crisis line at [facility]. Questions addressed. Client verbalized understanding of all information and is agreeable to treatment plan. * Procedure Codes: * Follow Up: 3 Months (Reason: Medication management - can be telehealth appt. or in office appt.) * * EL HEADING INSPECTOR Sign off status: Completed true * Provider: Arabella Kraus DNP, PMP- Date: 10/10/2023 Generated for Brookei shashi/Fanikkig/eTransmitting on: 0 11/19/2024 04:03 PM TUNNEL HEADING INSPECTOR History and Physical Notes * HPI (History of Present Illness) Category Sub-Category Detail Notes Category Not es Depression Screening PHQ-9 Little inte rest or pleasure in doing things: Not at all Feeling down, depressed, or hopeless: No t at all Trouble falling or staying asleep, or sl eeping too much: Not at all Feeling tired or having little energy: S everal days Poor appetite or overeating: Several day s Feeling bad about yourself o r that you are a failure, or have let yourself or your family down: Not at all Trouble concentrating on thi ngs, such as reading the newspaper or watching television: Several days Moving or speaking so slowly that other people could have noticed; or the opposite, being so fidgety or restless that you have been moving around a lot more than usual: Not at all Thoughts that you would be b jim off or of hurting yourself in some way: Not at all Total Score: 3 Interpretation: Minimal Depression Intervention Depression Screening Findings: P ositive Follow-Up for Depression: No Referral necessary, patient involved in behavioral health treatment Do Not Use CSSRS Interpretation and Follow Up Plan CSSRS Interpretation and Follow Up Plan Moderate or High risk requires selection of a follow up plan: CSSRS No/Low: intervention not needed at this time Examination Category Sub-Category Detail Notes Category Not es General Examination Mental Status Exam Attitude and Behavior: Cooperative Mood: Stable, Euthymic Affect: Broad/Full Speech: Appropriate Thought Process: Coherent and Goal Direc mirza Hallucinations: Denies Thought Content: Appropriate Suicidal Ideation: Denies Current Though ts/Plans Homicidal Ideation: Denies Current Inten t Insight: Fair Judgement: Fair Sensorium and Cognition: Alert Oriented to: Person, Place, Time Attention and Concentration: No Deficits Fund of Knowledge: Fair
--- OUTSIDE RECORDS SUMMARY | 2024-11-19 16:04 | XMS_ITS | Encounter Summary ---
Author Organization [facility] Address 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
--- OUTSIDE RECORDS SUMMARY | 2024-11-19 16:04 | XMS_ITS | Referral Summary ---
Author Organization [facility] Address [address] [place] [address] Care Team Providers Care Fuel Efficient Aircraft Designer Name Role Phone Ute Betancourt NP Primary Care Provider [phone] Elie Mojica MD Unavailable [phone] Encounters Date Type Department Care Team Description 09/10/2024 9:00 AM ELDER COUNSELOR - 09/10/2024 9:50 AM [facility] Surgery [facility] Cardiac Button Bradder [address] [place] [address] Luis Gutierrez MD LEFT HEART CATHETERIZATION WITH CORONARY ANGIOGRAPHY AND WITH OR WITHOUT LEFT VENTRICULOGRAM [id number] 09/10/2024 6:57 AM ELDER COUNSELOR - 09/10/2024 1:12 PM [facility] Hospital Encounter [facility] Cardiac Button Bradder [address] [place] [address] Luis Gutierrez MD Abnormal stress test Discharge Disposition: Discharge to home or self care 08/24/2024 Telephone [facility] Cardiology [address] [place] [address] [address] [place] [address] Luis Gutierrez MD [facility] from Last 3 Months Allergies Active Allergy Reactions Criticality Noted Date Comments Adhesive Rash Medium 10/31/2020 Silk tape gives me rash Sulfa (Sulfonamide Antibiotics) Hives Medium 10/31/2020 Medications ARIPiprazole (ABILIFY) 10 mg tablet Take 1 tablet (10 mg total) by mouth daily Active citalopram (CeleXA) 10 mg tablet Take 1 tablet (10 mg total) by mouth daily Active hydrOXYzine (ATARAX) 25 mg tablet Take 1-2 tablets (25-50 mg total) by mouth every 4 (four) hours as needed for itching Active melatonin 10 mg tablet Take 1 tablet (10 mg total) by mouth daily Active pantoprazole DR (PROTONIX) 40 mg EC tablet Take 1 tablet (40 mg total) by mouth 2 (two) times a day Active potassium gluconate 595 mg (99 mg) tablet Take 1 tablet (595 mg total) by mouth nightly Active turmeric root extract 500 mg capsule Take 3 tablets by mouth daily Active cholecalciferol (VITAMIN D-3) 2000 unit capsule Take 1 capsule (2,000 Units total) by mouth daily Active Lactobacillus acidophilus (PROBIOTIC ORAL) Take 1 tablet by mouth daily Active cyclobenzaprine (FLEXERIL) 10 mg tablet Take 1 tablet (10 mg total) by mouth 3 (three) times a day as needed for muscle spasms Active dicyclomine (BENTYL) 20 mg tablet Take 1 tablet (20 mg total) by mouth every 6 (six) hours Active eszopiclone (LUNESTA) 1 mg tabletIndication s:Insomnia Take 2 tablets (2 mg total) by mouth nightly Take immediately before bedtime Active furosemide (LASIX) 40 mg tablet Take 1 tablet (40 mg total) by mouth 2 (two) times a day 40 mg in the morning, 20 in the evening Active magnesium oxide 400 mg magnesium capsule Take 400 mg by mouth Active topiramate (TOPAMAX) 100 mg tablet Take 2 tablets (200 mg total) by mouth daily Active vitamin E 200 unit capsule Take 1 capsule (200 Units total) by mouth daily Active vitamin K2 40 mcg tablet Take 40 mcg by mouth daily Active cetirizine (ZyrTEC) 10 mg tablet Take 1 tablet (10 mg total) by mouth daily Active HYDROcodone-acet aminophen (NORCO) 7.5-325 mg per tabletIndication s:Pain Take 1 tablet by mouth every 6 (six) hours as needed for pain For back pain Active Active Problems Problem Noted Date Diagnosed Date Abnormal stress test 08/24/2024 Left renal stone 10/17/2020 Overview (10/17/2020): Added automatically from request for surgery [id number] Social History Tobacco Use Types Packs/Day Years Used Date Smoking Tobacco: Every Day Vaping Smokeless Tobacco: Never Alcohol Use Standard Drinks/Week Comments Not Currently 0 (1 standard drink = 0.6 oz pur e alcohol) AUDIT-C Answer Date Recorded Q1: How often do you have a drink containing alcohol? Never 09/10/2024 Q2: How many drinks containi ng alcohol do you have on a typical day when you are drinking? Patient does not drink Q3: How often do you have si x or more drinks on one occasion? Never 09/10/2024 Personal Safety Answer Date Recorded Have you ever been in or are you currently in a harmful physical or emotional relationship or is someone making you feel afraid or unsafe? Denies 09/10/2024 Comments No Sex and Gender Information Value Date Recorded Sex Assigned at Not on file Legal Sex Female 6:52 AM ELDER COUNSELOR Gender Identity Not on file Sexual Orientation Not on file Last Filed Vital Signs Vital Sign Reading Time Taken Comments Blood Pressure 121/77 09/10/2024 12:30 PM ELDER COUNSELOR Pulse 73 09/10/2024 12:30 PM ELDER COUNSELOR Temperature 36.8 C (98.2 F) 09/28/2021 4:08 PM ELDER COUNSELOR Respiratory Rate 13 09/10/2024 12:3 0 PM ELDER COUNSELOR Oxygen Saturation 98% 09/10/2024 12: 30 PM ELDER COUNSELOR Inhaled Oxygen Concentration - - Weight 84.3 kg (185 lb 12.8 oz) 022 10:07 AM CDT Height 167.6 cm (5' 6 ) 11/30/2021 10:0 7 AM CDT Body Mass Index 29.99 11/30/2021 10:07 AM CDT Plan of Treatment Not on file Medical Devices Implanted Type Area Rn Concurrent Review Device Identifier Shelf Expiration Date Model / Serial / Lot Spinal Cord Stimulator-10/18 Implanted:Qty: 1 on 11/13/2019 by Dileep Colorado MD Spinal Cord Stimulator Left: Back Med[employer]onic [id number] / [id number] / [employer] Alvaro 400-171 C-Flex 6fr 70cm Taper Tip 1 Lumen Injection Hub Radiopaque Latex Free - Sn/A - [id number] Implanted:Qty: 1 on 11/02/2020 by Elie Mojica MD at [facility] [employer] Alvaro 05/10/2024 400-171 / N/A / [id number] [employer] [id number] Amplatz 8.5fr 26cm 6 Sideport Introducer Catheter String - [id number] Implanted:Qty: 1 on 11/03/2020 at [facility] [employer] 09/29/2023 [id number] / / [id number] Procedures Procedure Name Priority Date/Time Associated Diagnosis Comments LEFT HEART CATHETERIZATION WITH CORONARY ANGIOGRAPHY AND WITH AND WITHOUT LEFT VENTRICULOGRAM Routine 09/10/2024 9:49 AM ELDER COUNSELOR Abnormal stress test ECG 12-LEAD Routine 09/10/2024 7:38 AM ELDER COUNSELOR B ABO / RH CONFIRMATION TESTING STAT 09/10/2024 7:38 AM ELDER COUNSELOR EGFR STAT 09/10/2024 7:20 AM ELDER COUNSELOR DIFFERENTIAL AUTO STAT 09/10/2024 7:2 0 AM ELDER COUNSELOR ANTIBODY SCREEN STAT 09/10/2024 7:20 AM ELDER COUNSELOR ABO/RH STAT 09/10/2024 7:20 AM ELDER COUNSELOR PROTIME-INR STAT 09/10/2024 7:20 AM ELDER COUNSELOR TYPE AND SCREEN STAT 09/10/2024 7:20 AM ELDER COUNSELOR APTT STAT 09/10/2024 7:20 AM ELDER COUNSELOR CBC WITH AUTO DIFFERENTIAL STAT 09/10/2024 7:20 AM ELDER COUNSELOR BASIC METABOLIC PANEL STAT 09/10/2024 7:20 AM ELDER COUNSELOR from Last 3 Months Results * LEFT HEART CATHETERIZATION WITH CORONARY ANGIOGRAPHY AND WITH AND WITHOUT LEFT VENTRICULOGRAM (09/10/2024 9:49 AM ELDER COUNSELOR) Anatomical Region Laterality Modality X-Ray Angiograph y Impressions 09/10/2024 9:51 AM ELDER COUNSELOR No significant coronary artery disease. THERAPEUTIC RECOMMENDATIONS: Continue medical management and risk factor modification. Hemostasis was achieved using a TR band. Discharge home later this afternoon. The case was reviewed and discussed with the referring physician and patient as well as her family. Narrative 09/10/2024 9:51 AM ELDER COUNSELOR CORONARY ANGIOGRAM REPORT Patient: Anh Matrino : 1970 Date of Service: 09/10/2024 Home Care Specialist: Luis Gutierrez MD Referring physician: Gulshan Macdonald MD PATIENT CLINICAL PROFILE: Anh Martino is a 53 y.o. female with a history of abnormal stress test prior to planned spine surgery, referred for angiography. PROCEDURE: The risks, benefits and alternatives of the procedures and moderate sedation were explained to the patient and informed consent was obtained. The patient was brought to the director of cardiac cath lab and placed on the table. Right radial site and bilateral groins were prepped and draped in the usual sterile fashion. The right radial artery site was infiltrated with 2 % lidocaine. The vessel was accessed using a Cook needle and the modified Seldinger technique and a 6 Fr slender sheath was advanced over the wire into the vessel. 5000 units of unfractionated heparin was administered. Left Coronary Artery Angiogram was performed using a [place] Catheter. Right Coronary Artery Angiogram was performed using a [place] Catheter. At the end of the procedure, hemostasis was obtained via TR band Patient was transferred to holding area in stable condition. RESULTS: Coronary Arteriography: Left main coronary: no significant disease Left Anterior Decending: no significant disease Left Circumflex: no significant disease Right Coronary Artery: Right Dominant System. no significant disease. COMPLICATIONS: none Estimated Blood Loss: 10 cc Specimens: none DIAGNOSTIC us Luis Gutierrez MD CV CARDIAC CATH PROCEDURE S Final Result * ECG 12 lead (09/10/2024 7:38 AM ELDER COUNSELOR) Ventricular Rate EKG/Min 82 BPM [facility] Atrial Rate 82 BPM [facility] SC-Interval (MSEC) 166 ms [facility] QRS-Interval (MSEC) 94 ms [facility] QT-Interval (MSEC) 394 ms [facility] QTc 460 ms [facility] P [place] 34 degrees [facility] R [place] 37 degrees [facility] T [place] 32 degrees [facility] Diagnosis Normal sinus rhythm Normal ECG When compared with ECG of 03-AUG-2024 08:33, No significant change was found Confirmed by RONNIE CISNEROS M.D. ([id number]) on 09/11/2024 10:35:26 AM [facility] 09/10/2024 7:38 AM ELDER COUNSELOR 09/11/2024 10:35 AM ELDER COUNSELOR us Luis Gutierrez MD ECG ORDERABLES Final Res ult [facility] * ABO / Rh Confirmation Testing (09/10/2024 7:38 AM ELDER COUNSELOR) ABO/Rh Confirmation O Negative [facility] Comment:Testing performed by : [facility], [address] [place] [address]., [address] Blood 09/10/2024 7:38 AM ELDER COUNSELOR 09/10/2024 7:42 AM ELDER COUNSELOR us Luis Gutierrez MD LAB BLOOD ORDERABLES Gina l Result [facility] [address] [facility] Department [place] [address] [facility] * eGFR (09/10/2024 7:20 AM ELDER COUNSELOR) eGFR 60 >=60 mL/min/1. 73 m2 Comment: Interpretive Data Reference Interval Normal >/= 90 mL/min/1.73m2 Mildly decreased* 60 - 89 mL/min/1.73m2 Mildly to moderately decreased 45 - 59 mL/min/1.73m2 Moderately to severely decreased 30 - 44 mL/min/1.73m2 Severely decreased 15 - 29 mL/min/1.73m2 Kidney Failure < 15 mL/min/1.73m2 *Relative to young adult level Estimated glomerular filtration rate is determined by the 2020 CKD-EPI equation recommended by the National Kidney Foundation (A Unifying Approach to GFR Estimation: Recommendations of the NKF-ASK Task Force on Reassessing the Inclusion of Race in Diagnosing Kidney Disease, JASN 202). The CKD-EPI equation should not be used for patients with unstable renal function and has not been validated in children and those over 70. Current interpretive data was last reviewed 2021. Testing performed by: [address] [address] Blood 09/10/2024 7:20 AM ELDER COUNSELOR 09/10/2024 7:27 AM ELDER COUNSELOR us Luis Gutierrez MD LAB BLOOD ORDERABLES Gina gaspar Result [facility] [address] [facility] Department [place] [address] * Differential, auto (09/10/2024 7:20 AM ELDER COUNSELOR) Neutrophil abs 3.7 1.5 - 6.5 K/cumm Comment:Testing performed by : [address] [address] Imm gran abs 0.0 0.0 - 0.1 K/cumm [facility] Comment:Testing performed by : [address] [address] Lymphocyte abs 1.3 0.8 - 3.3 K/cumm [facility] Comment:Testing performed by : [address] [address] Monocyte abs 0.5 0.2 - 0.8 K/cumm [facility] Comment:Testing performed by : [address] [address] Eosinophil abs 0.2 0.0 - 0.5 K/cumm [facility] Comment:Testing performed by : [address] [address] Basophil abs 0.0 0.0 - 0.1 K/cumm [facility] Comment:Testing performed by : [address] [address] Neutrophil pct 64.2 % [facility] Comment: Interpretive Data Percent cell count reference ranges are not reported, since discordance with absolute values may lead to misinterpretation of CBC data. Current Interpretive Data was last revised on 2017. Testing performed by: [address] [address] Imm gran pct 0.2 % [facility] Comment: Interpretive Data Percent cell count reference ranges are not reported, since discordance with absolute values may lead to misinterpretation of CBC data. Current Interpretive Data was last revised on 2017. Testing performed by: [address] [address] Lymphocyte pct 22.9 % [facility] Comment: Interpretive Data Percent cell count reference ranges are not reported, since discordance with absolute values may lead to misinterpretation of CBC data. Current Interpretive Data was last revised on 2017. Testing performed by: [address] [address] Monocyte pct 9.0 % [facility] Comment: Interpretive Data Percent cell count reference ranges are not reported, since discordance with absolute values may lead to misinterpretation of CBC data. Current Interpretive Data was last revised on 2017. Testing performed by: [address] [address] Eosinophil pct 3.3 % [facility] Comment: Interpretive Data Percent cell count reference ranges are not reported, since discordance with absolute values may lead to misinterpretation of CBC data. Current Interpretive Data was last revised on 2017. Testing performed by: [address] [address] Basophil pct 0.4 % [facility] Comment: Interpretive Data Percent cell count reference ranges are not reported, since discordance with absolute values may lead to misinterpretation of CBC data. Current Interpretive Data was last revised on 2017. Testing performed by: [address] [address] Blood 09/10/2024 7:20 AM ELDER COUNSELOR 09/10/2024 7:27 AM ELDER COUNSELOR Luis Gutierrez MD LAB BLOOD ORDERABLES Gina gaspar Result [facility] [address] Department [place] [address] * CBC with auto differential (09/10/2024 7:20 AM ELDER COUNSELOR) [facility] WBC 5.7 3.8 - 9.9 K/cumm Comment:Testing performed by : [address] [address] Hgb 13.0 11.9 - 15.5 g/dL [facility] Comment:Testing performed by : [address] [address] Hct 37.7 35.6 - 45.5 % [facility] Comment:Testing performed by : [address] [address] Plt 167 150 - 400 K/cumm [facility] Comment:Testing performed by : [address] [address] MPV 10.2 9.1 - 12.3 fL [facility] Comment:Testing performed by : [address], [address] RBC 4.41 3.90 - 5.20 M/cumm [facility] Comment:Testing performed by : [address] [address] MCV 85.5 81.3 - 96.4 fL [facility] Comment:Testing performed by : [address] [address] MCH 29.5 27.1 - 33.3 pg [facility] Comment:Testing performed by : [address] [address] MCHC 34.5 32.3 - 35.7 g/dL [facility] Comment:Testing performed by : [address] [address] RDW CV 12.3 11.1 - 14.9 % [facility] Comment:Testing performed by : [address] [address] RDW SD 38.3 35.7 - 48.1 fL [facility] Comment:Testing performed by : [address], [address] NRBC abs 0.00 0.00 - 0.01 K/cumm [facility] Comment:Testing performed by : [address] [address] Blood 09/10/2024 7:20 AM ELDER COUNSELOR 09/10/2024 7:27 AM ELDER COUNSELOR Narrative [facility] - 09/10/2024 7:31 AM ELDER COUNSELOR If most recent labs were drawn prior to 4 AM, draw only prior to initiating procedure. Luis Gutierrez MD LAB BLOOD ORDERABLES Gina l Result Performing Organization Address [facility] Co de Phone Number [address] [place] [address] * ABO/Rh (09/10/2024 7:20 AM ELDER COUNSELOR) ABO/Rh O Negative Comment:Testing performed by : [address] [address] Blood 09/10/2024 7:20 AM ELDER COUNSELOR 09/10/2024 7:27 AM ELDER COUNSELOR Narrative [facility] - 09/10/2024 8:08 AM ELDER COUNSELOR Has the patient had Daratumumab or Isatuximab in the past 6 months?->Unknown Luis Gutierrez MD LAB BLOOD BANK TEST ORDER ANNITA Final Result Performing Organization Address [facility] de Phone Number [address] [place] [address] * aPTT (09/10/2024 7:20 AM ELDER COUNSELOR) aPTT 29 22 - 37 sec Comment: Interpretive data aPTT test has not been evaluated for monitoring heparin therapy. The anti-Xa is the preferred test. Current interpretive data was last revised on 2019. Testing performed by: [address] [address] Blood 09/10/2024 7:20 AM ELDER COUNSELOR 09/10/2024 7:27 AM ELDER COUNSELOR Result [facility] Luis Gutierrez MD LAB BLOOD ORDERABLES Gina l Result Performing Organization Address City/[facility]/ZIP Co de Phone Number [address] [employer] [place] [address] * Protime-INR (09/10/2024 7:20 AM ELDER COUNSELOR) PT 13.3 12.0 - 14.6 sec Comment:Testing performed by : [address] [address] INR 1.0 0.9 - 1.2 [facility] Comment: Ref Range High Interpretive data Oral anticoagulant therapeutic ranges: Venous thromboembolism prophylaxis or treatment: 2.0-3.0 CARDIOLOGY Standard range: 2.0-3.0 High-intensity range: 2.5-3.5 Refer to indication-specific guidelines for appropriate target ranges for prosthetic heart valve replacement. Current interpretive data was last revised on 2019. Testing performed by: [address] [address] Blood 09/10/2024 7:20 AM ELDER COUNSELOR 09/10/2024 7:27 AM ELDER COUNSELOR Result [facility] Luis Gutierrez MD LAB BLOOD ORDERABLES Gina l Result Performing Organization Address [facility] Co de Phone Number [address] [employer] [place] [address] * Antibody screen (09/10/2024 7:20 AM ELDER COUNSELOR) Juanjo, indirect, Gel Interpretation Negative [facility] Comment:Testing performed by : [address] [address] Blood 09/10/2024 7:20 AM ELDER COUNSELOR 09/10/2024 7:27 AM ELDER COUNSELOR Narrative [facility] - 09/10/2024 8:08 AM ELDER COUNSELOR Has the patient had Daratumumab or Isatuximab in the past 6 months?->Unknown Luis Gutierrez MD LAB BLOOD BANK TEST ORDER ANNITA Final Result [facility] [address] [facility] Department [place] [address] * Basic metabolic panel (09/10/2024 7:20 AM ELDER COUNSELOR) Sodium 139 135 - 145 mmol/L Comment:Testing performed by : [address] [address] Potassium, pl 4.0 3.3 - 4.9 mmol/L [facility] Comment:Testing performed by : [address] [address] Chloride 105 97 - 110 mmol/L [facility] Comment:Testing performed by : [address] [address] CO2 22 22 - 32 mmol/L [facility] Comment:Testing performed by : [address] [address] Anion gap 12 2 - 15 mmol/L [facility] Comment:Testing performed by : [address] [address] BUN 13 6 - 25 mg/dL [facility] Comment:Testing performed by : [address] [address] Creatinine 1.10 0.60 - 1.10 mg/dL [facility] Comment:Testing performed by : [address] [address] Glucose 94 70 - 199 mg/dL [facility] Comment: Interpretive Data Fasting glucose >/= 126 mg/dl is diagnostic for diabetes. Fasting is defined as no caloric intake for at least 8 hours. Fasting glucose between 100 mg/dl to 125 mg/dl is diagnostic of prediabetes. In a patient with classic symptoms of hyperglycemia or hyperglycemic crisis, a random glucose >/= 200 mg/dl is diagnostic for diabetes. In the absence of unequivocal hyperglycemia, results should be confirmed by repeat testing. The classification and Diagnosis of Diabetes Diabetes Care 202; 46: S19-S40. Current interpretive data was last revised 2022. Testing performed by: [address] [address] Calcium 9.8 8.5 - 10.3 mg/dL [facility] Comment:Testing performed by : [facility], [address] [place] [address], [place]., [address] Blood 09/10/2024 7:20 AM ELDER COUNSELOR 09/10/2024 7:27 AM ELDER COUNSELOR Luis Gutierrez MD LAB BLOOD ORDERABLES Gina gaspar Result [facility] [address] [facility] Department [place] [address] from Last 3 Months Insurance [employer] CHOICE MEDICARE PPO [employer] Advance Directives For more information, please contact: [phone] Documents on File Type Date Recorded Patient Hr Operations Advisor Expl anation ADVANCE DIRECTIVE 01/01/2013 12:00 AM [facility] [employer] * Full Code (Latest Code Status on File) Date Activated Date Inactivated Comments 11/02/2020 5:55 PM 11/03/2020 9:22 PM Care Teams Fuel Efficient Aircraft Designer Relationship Specialty Start Date End Date Ute Betancourt NP PCP - General 11/13/19 [place] [address] [place] [address] Consulting Physician Urology 11/03/20
--- OUTSIDE RECORDS SUMMARY | 2024-11-19 16:04 | XMS_ITS | Encounter Summary ---
Author Organization [employer] Address [address] [place] [address] Care Team Providers Care Research Laboratory Specialist Name Role Phone Charlie Mera MD Primary Care Provider Mary le Encounter Details Date Type Department Care Team (Late st Contact Info) Description 11/16/2003 Inpatient Historical HIS [place] [address] [facility] EXECUTIVE [facility] [address] [place] [address] Ted Brooks ACUTE PYELONEPHRITIS NOS (Primary Dx) Social History Tobacco Use Types Packs/Day Years Used Date Smoking Tobacco: Never Assessed Comments Unknown Sex and Gender Information Value Date Recorded Sex Assigned at Not on file Legal Sex Female 4:21 AM MANAGER TECHNICAL SUPPORT Gender Identity Not on file Sexual Orientation Not on file documented as of this encounter Plan of Treatment Not on file documented as of this encounter Visit Diagnoses Diagnosis 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
--- OUTSIDE RECORDS SUMMARY | 2024-11-19 16:04 | XMS_ITS | Encounter Summary ---
Author Organization [employer] Address [address] [place] [address] Care Team Providers Care Foundation Relations Manager Name Role Phone Charlie Mera MD Primary Care Provider Mary tapia Encounter Details Date Type Department Care Team (Latest Contact Info) Description 06/08/2004 Outpatient Historical HIS PATIENT IN A BED Jackson Theodore MD [address] [facility] [address] [place] [id number] OTHER CURR COND-ANTEPARTUM (Primary Dx) Social History Tobacco Use Types Packs/Day Years Used Date Smoking Tobacco: Never Assessed Comments Unknown Sex and Gender Information Value Date Recorded Sex Assigned at Not on file Legal Sex Female 4:21 AM GYNECOLOGIST Gender Identity Not on file Sexual Orientation Not on file documented as of this encounter Plan of Treatment Not on file documented as of this encounter Visit Diagnoses Diagnosis Other current maternal conditions classifiable elsewhere, antepartum- Primary documented in this encounter Care Teams Foundation Relations Manager Relationship Specialty Start Date End Date Charlie Mera MD NO ADDRESS ON FILE PCP - General 09/19/05 documented as of this encounter
--- OUTSIDE RECORDS SUMMARY | 2024-11-19 16:04 | XMS_ITS | Encounter Summary ---
Author Organization [employer] Address [address] [place] [address] Care Team Providers Care Construction Plant Operator Name Role Phone Charlie Mera MD Primary Care Provider Mary tapia Encounter Details Date Type Department Care Team (Late st Contact Info) Description 05/09/2004 Outpatient Historical [facility] Jb Blanco MD [address] [facility] [address] [address] [place] [address] PLACENTA PREVIA-ANTEPART (Primary Dx) Social History Tobacco Use Types Packs/Day Years Used Date Smoking Tobacco: Never Assessed Comments Unknown Sex and Gender Information Value Date Recorded Sex Assigned at Not on file Legal Sex Female 4:21 AM EKG TECH Gender Identity Not on file Sexual Orientation Not on file documented as of this encounter Plan of Treatment Not on file documented as of this encounter Visit Diagnoses Diagnosis Placenta previa without hemorrhage, antepartum- Primary documented in this encounter Care Teams Construction Plant Operator Relationship Specialty Start Date End Date Charlie Mera MD NO ADDRESS ON FILE PCP - General 09/19/05 documented as of this encounter
--- OUTSIDE RECORDS SUMMARY | 2024-11-19 16:04 | XMS_ITS | Encounter Summary ---
Author Organization [facility] Healthcare Address [address] [place] [address] Care Team Providers Care Child Care Center Assistant Director Name Role Phone Ute Betancourt NP Primary Care Provider [phone] Elie Mojica MD Unavailable [phone] Encounter Details Date Type Department Care Team (Late st Contact Info) Description 10/31/2020 Telephone [facility] - Interventional Rad[facility] [place] [address] Arabella Gomez RN Social History Tobacco Use Types Packs/Day Years Used Date Smoking Tobacco: Every Day Vaping Smokeless Tobacco: Never Alcohol Use Standard Drinks/Week Comments Not Currently 0 (1 standard drink = 0.6 oz pur e alcohol) Comments Unknown Sex and Gender Information Value Date Recorded Sex Assigned at Not on file Legal Sex Female 6:52 AM CDL TRUCK DRIVER Gender Identity Not on file Sexual Orientation Not on file documented as of this encounter Plan of Treatment Not on file documented as of this encounter Visit Diagnoses Not on filedocumented in this encounter Additional Health Concerns Infection Onset Date Last Indicated Resolved Time COVID: Suspected 09/28/2021 09/28/2021 09/29/2021 6:55 PM CDL TRUCK DRIVER documented as of this encounter Care Teams Child Care Center Assistant Director Relationship Specialty Start Date End Date Ute Betancourt NP PCP - General 11/13/19 [place] [address] [place] [address] Consulting Physician Urology 11/03/20 documented as of this encounter
--- OUTSIDE RECORDS SUMMARY | 2024-11-19 16:04 | XMS_ITS | Encounter Summary ---
Author Organization [employer] Address [address] [place] [address] Care Team Providers Care Shellfish Farming Supervisor Name Role Phone Charlie Mera MD Primary Care Provider Mary le Encounter Details Date Type Department Care Team (Late st Contact Info) Description 06/02/2004 Outpatient [place] [address] [place] [address] SUPERVIS OTHER NORMAL PREG (Primary Dx) Social History Tobacco Use Types Packs/Day Years Used Date Smoking Tobacco: Never Assessed Comments Unknown Sex and Gender Information Value Date Recorded Sex Assigned at Not on file Legal Sex Female 4:21 AM TRAIN BRAKER Gender Identity Not on file Sexual Orientation Not on file documented as of this encounter Plan of Treatment Not on file documented as of this encounter Visit Diagnoses Diagnosis Supervision of other normal - Primary documented in this encounter Care Teams Shellfish Farming Supervisor Relationship Specialty Start Date End Date Charlie Mera MD NO ADDRESS ON FILE PCP - General 09/19/05 documented as of this encounter
--- OUTSIDE RECORDS SUMMARY | 2024-11-19 16:04 | XMS_ITS | Encounter Summary ---
Author Organization [employer] Address [address] [place] [address] Care Team Providers Care Repair Department Supervisor Name Role Phone Charlie Mera MD Primary Care Provider Unavailab le Encounter Details Date Type Department Care Team (Late st Contact Info) Description 07/06/2005 Outpatient Historical [facility] Maternal and Ground Floor [address] [place] [address] Сергей Carbajal MD [address] [place] [address] Social History Tobacco Use Types Packs/Day Years Used Date Smoking Tobacco: Never Assessed Comments Unknown Sex and Gender Information Value Date Recorded Sex Assigned at Not on file Legal Sex Female 4:21 AM METAL HANDLER Gender Identity Not on file Sexual Orientation Not on file documented as of this encounter Plan of Treatment Not on file documented as of this encounter Visit Diagnoses Not on filedocumented in this encounter Care Teams Repair Department Supervisor Relationship Specialty Start Date End Date Charlie Mera MD NO ADDRESS ON FILE PCP - General 09/19/05 documented as of this encounter
--- OUTSIDE RECORDS SUMMARY | 2024-11-19 16:04 | XMS_ITS | Encounter Summary ---
Author Organization [facility] Address [address] [place] [address] Care Team Providers Care Quality Control Technician Name Role Phone Ute Betancourt NP Primary Care Provider [phone] Lina Arboleda MD Unavailable [phone] Orly Michaud MD Unavailable [phone] Encounter Details Date Type Department Care Team (Latest Contact Info) Description 03/22/2020 MyChart Message Enc [facility] Multispecialty Care - [address], [address] [place] [address] Deep Sommers MD [address] [place] [address] [place] [id number] RE: Follow Up/Update Social History Tobacco Use Types Packs/Day Years Used Date Smoking Tobacco: Every Day Electronic Cigarettes Smokeless Tobacco: Never Alcohol Use Standard Drinks/Week Comments No 0 (1 standard drink = 0.6 oz pur e alcohol) Comments No Sex and Gender Information Value Date Recorded Sex Assigned at Female 11/07/2024 8:08 AM DELINQUENT TAX COLLECTOR Legal Sex Female 3:59 PM CDT Gender Identity Not on file Sexual Orientation Not on file Occupation Industry Job Start Date Job End Date Not on file Not on file Not on file Not on file COVID-19 Exposure Response Date Recorded In the last month, have you been in contact with someone who was confirmed or suspected to have Coronavirus / COVID-19? No / Unsure 03/24/2020 1:27 PM CDT documented as of this encounter Plan of Treatment Not on file documented as of this encounter Visit Diagnoses Not on filedocumented in this encounter Additional Health Concerns Infection Onset Date Last Indicated Resolved Time COVID-19 Rule Out 05/16/2020 05/16/2020 05/16/2020 8:08 AM CDT COVID-19 Rule Out 07/25/2020 07/25/2020 07/27/2020 2:31 PM DELINQUENT TAX COLLECTOR COVID-19 Rule Out 02/16/2021 02/16/2021 02/16/2021 9:46 AM CDT COVID-19 Rule Out 05/18/2021 05/18/2021 05/19/2021 4:06 PM CDT documented as of this encounter Care Teams Quality Control Technician Relationship Specialty Start Date End Date Ute Betancourt NP [address] [facility] [address] [place] [address] PCP - General FAMILY PRACTICE 03/16/17 Lina Arboleda MD [address] [facility] [place] [address] [place] Implementation Coordinator CARDIOVASCULAR DISEASE 03/28/17 Orly Michaud MD [address] [facility] [address] [place] [address] Referring Physician GASTROENTEROLOGY 08/24/19 documented as of this encounter
--- OUTSIDE RECORDS SUMMARY | 2024-11-19 16:04 | XMS_ITS ---
Author Organization [facility] Address [address] [place] [address] Care Team Providers Care General Road Supervisor Name Role Phone Shelton Kraus Primary Care Provider Allergies Allergen (clinical drug ingredient) Drug/Non Drug Allergy documented on EMR Reaction Allergy Type Onset Date Status Substance with sulfonamide structure and antibacterial mechanism of action (substance) Sulfa Antibiotics hives Drug Allergy Active REASON FOR VISIT 3 Month Psych F/U & Med Refill Medications Medication SIG (Take, Route, Frequency, Duration) Notes Start Date End Date Status Lasix 40 MG 1 tablet Orally Once [...] Once a day for 30 day(s) Active Lasix 20 MG 1 tablet Orally Once a day for 30 day(s) afternoon Active Topiramate 100 MG TAKE 1 AND 1/2 TABLETS BY MOUTH EVERY DAY AT BEDTIME for 90 Active ARIPiprazole 20 MG TAKE 1 TABLET BY MOUTH DAILY for 90 Client states she really needs to at least pick Abilify today due to being out for several days. Active Eszopiclone 2 MG 1 tablet immediately before bedtime for treatment of insomnia Orally Once a day. Do NOT take with opioids or alcohol. for 30 days Client states she really needs to at least pick Abilify today due to being out for several days. 11/11/2024 Active Pantoprazole Sodium 40 MG 1 tablet Orally Once a day for 30 day(s) takes twice a day Active Ropinirole Hydrochloride 0.5mg Active Citalopram Hydrobromide 40 MG TAKE 1 TABLET BY MOUTH EVERY DAY for 90 Client states she really needs to at least pick Abilify today due to being out for several days. Active Cyclobenzaprine HCl 10 MG 1 tablet at bedtime as needed Orally Once a day for 30 day(s) Active Robinul For stomach as needed Active Diclofenac Client unsure of dose, unseen in external rx hx Active Encounters Encounter Location Date Provider Diagnosis [address] [place] [address] 11/11/2024 Shelton Kraus Bipolar II disorder F31.81 ; Panic disorder [episodic paroxysmal anxiety] F41.0 and Insomnia G47.00 Assessments Encounter Date Diagnosis (ICD Code) Assessment Notes Treatment Notes Treatment Clinical Notes Section Notes 11/11/2024 Bipolar II disorder (ICD-10 - F31.81) Client doing well, no tx plan changes needed at this time. 11/11/2024 Panic disorder [episodic paroxysmal anxiety] (ICD-10 - F41.0) Client doing well, no tx plan changes needed at this time. 11/11/2024 Insomnia (ICD-10 - G47.00) Client doing well, no tx plan changes needed at this time. [place] [...] number to the 24-hour crisis line at [facility]. Questions addressed. Client verbalized understanding of all information and is agreeable to treatment plan. Client doing well, no tx plan changes needed at this time. Plan Of Treatment Medication Medication Name Sig Start Date Stop Date Notes hydrOXYzine Pamoate 25 MG 1 capsule Orally Three times a day for 90 days Client states she really needs to at least pick Abilify today due to being out for several days. ARIPiprazole 20 MG TAKE 1 TABLET BY GWEN TH DAILY for 90 Client states she really needs to at least pick Abilify today due to being out for several days. Eszopiclone 2 MG 1 tablet immediately before bedtime for treatment of insomnia Orally Once a day. Do NOT take with opioids or alcohol. for 30 days 11/11/2024 Client states she really needs to at least pick Abilify today due to being out for several days. Citalopram Hydrobromide 40 MG TAKE 1 TABLET BY MOUTH EVERY DAY for 90 Client states she really needs to at least pick Abilify today due to being out for several days. Treatment Notes Assessment Notes [place] [...] number to the 24-hour crisis line at [facility]. Questions addressed. Client verbalized understanding of all information and is agreeable to treatment plan. Next Appt Details Follow Up: 3 Months, Reason: Psych F/U - In-Person or Telehealth Progress Notes * Anh ZENDEJASDOB: 1 (53 yo F)Acc No.[id number]:11/11/2024 Patient: Anh SIDDIQUI Provider: Arabella Kraus DNP, PMHNP-BC :1970 A ge:53 Y S ex:Female Date:11/11/2024 Address:[address] [place] [address] [address] [facility] Subjective: * Chief Complaints: * 3 Month [...] Up Plan: CSSRS Interpretation and Follow Up Plan C SSRS Screen documented using SF Y es, R isk Disposition from SF L ow - No Follow Up Plan Required, F ollow Up Plan N o Follow Up Plan required at this time.. S uicidal Assessment: Upshur Screening H ave you wished you were or wished you could go to sleep and not wake up? N o, H ave you actually had any thoughts of killing yourself? N o, H ave you ever done anything, started to do anything, or prepared to do anything to end your life? N o. C onstitutional: Session conducted telephonically with client's consent. Client pleasant and conversational. HPI: My surgery is coming up and I'm really stressed about my financial state. Anh Zendejas is a 53-year-old female who is preparing for upcoming back surgery (fusion of L2-3) scheduled for December 01. She expresses frustration with the timing of her MRI, which was only recently scheduled despite being necessary for her surgery. Anh is concerned about her neck pain and hopes to avoid neck surgery. She mentions that her current spinal stimulator is ineffective and causes more pain, and she is considering a new type of stimulator that doesn't require charging. Anh is experiencing significant financial stress due to her inability to work during her recovery period. She lives paycheck to [facility] and lacks short-term disability coverage. She is exploring options such as credit counseling and assistance from her boyfriend to manage her finances during this time. Anh reports that her mood is stable despite the stress, and she is managing her pain with marijuana gummies instead of hydrocodone, which she cannot take with Lunesta. She is sleeping well with Lunesta and is satisfied with her current medication regimen, which includes Abilify, Citalopram, and Hydroxyzine. States her granddaughter Consuelo is over a year old now, and doing well. That her sons are both working and fairing okay. She is happy in her relationship with her BF.? They celebrated a year anniversary a few months back. 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 HISTORICAL BACKGROUND:Has had chronic insufficiency of liver and kidneys and medications have been adjusted to limit impact to these organs. Client sees specialists for this. (mostly stabilized now in 2024) o Meth yes age 23, did 3 [...] Work history/current job doesn't work, worked a [employer] for a few months , worked at [employer] for about 13 years, she is on [...] to chart) Doctors Neurologist: Artemio Donald MD Administrative Support Technician: Ramona Bhatt MD Concrete Mixing Truck Driver: Harley CAMEJO ([facility]) Urologist: [facility]. * ROS: P sych ROS: GI [...] Work history/current job doesn't work, worked a [employer] for a few months , worked at [employer] for about 13 years, she is on [...] Once a day , Notes to Pharmacist: morningCitalopram Hydrobromide 40 MG Tablet TAKE 1 TABLET BY MOUTH EVERY DAY Eszopiclone 2 MG Tablet 1 tablet immediately before bedtime for treatment of insomnia Orally Once a day. Do NOT take with opioids or alcohol. hydrOXYzine Pamoate 25 MG Capsule 1 capsule Orally Three times a day As needed for anxietyARIPiprazole 20 MG Tablet TAKE 1 TABLET BY MOUTH DAILY Topiramate 100 MG Tablet TAKE 1 AND 1/2 TABLETS BY MOUTH EVERY DAY AT BEDTIME Taking Diclofenac , Notes to Pharmacist: Client unsure [...] a day , Notes to Pharmacist: morningTaking Citalopram Hydrobromide 40 MG Tablet TAKE 1 TABLET BY MOUTH EVERY DAY Taking Eszopiclone 2 MG Tablet 1 tablet immediately before bedtime for treatment of insomnia Orally Once a day. Do NOT take with opioids or alcohol. Taking hydrOXYzine Pamoate 25 MG Capsule 1 capsule Orally Three times a day As needed for anxietyTaking ARIPiprazole 20 MG Tablet TAKE 1 TABLET BY MOUTH DAILY Taking Topiramate 100 MG Tablet TAKE 1 AND 1/2 TABLETS BY MOUTH EVERY DAY AT BEDTIME * Allergies: S ulfa Antibiotics: hives - [...] F41.0 3 . I nsomnia - G47.00 Client doing well, no tx triny n changes needed at this time. Plan: * Treatment: 2. P anic disorder [episodic paroxysmal anxiety] Refill hydrOXYzine Pamoate Capsule, 25 MG, 1 capsule, Orally, Three times a day As needed for anxiety, 90 days, 270 Capsule, Refills 0, Notes to Pharmacist: Client states she really needs to at least pick Abilify today due to being out for several days.. 3. I nsomnia Refill Eszopiclone Tablet, 2 MG, 1 tablet immediately before bedtime for treatment of insomnia, Orally, Once a day. Do NOT take with opioids or alcohol., 30 days, 30, Refills 2, Notes to Pharmacist: Client states she really needs to at least pick Abilify today due to being out for several days..? 4. [place] Notes[place] [...] number to the 24-hour crisis line at [facility]. Questions addressed. Client verbalized understanding of all information and is agreeable to treatment plan. * Procedure Codes: * Follow Up: 3 Months (Reason: Psych F/U - In-Person or Telehealth) * * ALLATION & MAINTENANCE EXECUTIVE Sign off status: Completed true * Provider: Arabella Kraus DNP, PMHNP- Date: 0 11/11/2024 Generated for Bowen Salmon/Ksenia on: 0 11/19/2024 04:03 PM INSTALLATION & MAINTENANCE EXECUTIVE History and Physical Notes * HPI (History of Present Illness) Category Sub-Category Detail Notes Category Not es Suicidal Assessment Upshur Screening Have you wished you were or wished you could go to sleep and not wake up?: No Have you actually had any thoughts of ki lling yourself?: No Have you ever done anything, started to do anything, or prepared to do anything to end your life?: No Strengths Depression Screening PHQ-9 Little inte rest or [...] necessary, patient involved in behavioral health treatment CSSRS Interpretation and Follow Up Plan CSSRS Interpretation and Follow Up Plan CSSRS Screen documented using SF: Yes Risk Disposition from SF: Low - No Follo w Up Plan Required Follow Up Plan: No Follow Up Plan requir ed at this time. Examination Category Sub-Category Detail Notes Category Not [...]
--- OUTSIDE RECORDS SUMMARY | 2024-11-19 16:04 | XMS_ITS | Clinical Summary ---
Author Organization [facility] Address [address] [place] [address] Phone Care Team Providers Care Privacy Director Name Role Phone Ute Betancourt MD Primary Care Provider [phone] Allergies Active Allergy Reactions Criticality Noted Date Comments Acetaminophen Palpitations Low 10/07/2021 Liver problem Sulfa Antibiotics 10/10/2020 Other reaction(s): hives Wound Dressing Adhesive Rash Medium 10/31/2020 Silk tape gives me rash Medications Medication Sig Dispensed Refills Start Date End Date Status hydrOXYzine (ATARAX) 25 MG tablet Take 25 mg by mouth 4 times a day Active Multiple Vitamins-Mineral s (MULTI FOR HER PO) Take by mouth 1 (one) time each day Active citalopram (CeleXA) 10 MG tablet 20 mg Active Melatonin 5 MG tablet Take 10 mg by mouth Active pantoprazole (PROTONIX) 40 MG EC tablet 40 mg Active Cholecalciferol (Vitamin D) 25 MCG (1000 UT) tablet Take by mouth Active ARIPiprazole (ABILIFY) 15 MG tablet Take 15 mg by mouth 1 (one) time each day Active HYDROcodone-acet aminophen (NORCO) 7.5-325 MG per tablet Take 1 tablet by mouth every 6 (six) hours if needed for moderate pain Active dicyclomine (BENTYL) 20 MG tablet Take 20 mg by mouth in the morning and 20 mg in the evening. Active eszopiclone (LUNESTA) 1 MG tablet Take 2 mg by mouth every night Take immediately before bedtime Active topiramate (TOPAMAX) 100 MG tablet Take 150 mg by mouth at bed time Active phytonadione (VITAMIN K) 5 MG tablet Take 5 mg by mouth 1 (one) time Active Crescent-3 Fatty Acids (Fish Oil) 1000 MG capsule delayed-release Take 2 capsules by mouth in the morning and 2 capsules in the evening. Active cetirizine (ZyrTEC) 10 MG tablet Take 10 mg by mouth 1 (one) time each day Active mirtazapine (REMERON) 15 MG tablet Take 15 mg by mouth every night 5 Discontinued HYDROcodone-acet aminophen (NORCO) 5-325 MG per tablet Take 1 tablet by mouth every 6 (six) hours if needed for moderate pain 5 Discontinued potassium chloride (KLOR-CON M20) 20 MEQ CR tabletIndication s:Hypokalemia Take 1 tablet (20 mEq total) by mouth 1 (one) time each day 30 tablet 11 06/19/2023 5 Discontinued magnesium oxide 400 (240 Mg) MG tablet TAKE 1 TABLET BY MOUTH EVERY DAY 90 tablet 09/20/2024 5 Discontinued furosemide (LASIX) 20 MG tablet TAKE 2 TABLETS BY MOUTH EVERY MORNING AND 1 TABLET BY MOUTH EVERY EVENING 270 tablet 09/20/2024 5 Discontinued Active Problems Problem Noted Date Diagnosed Date Chronic kidney disease 08/30/2021 Hypokalemia 03/02/2021 Fluid retention 10/18/2020 Resolved Problems Problem Noted Date Diagnosed Date Resolved Date Palpitations 03/02/2021 08/29/2021 Abnormal weight gain 02/22/2021 021 Fatty liver 11/28/2020 03/02/2021 Hypoalbuminemia 11/28/2020 02/22/2021 Serum creatinine raised 10/10/2020 052 09/2020 H/O: urinary stone 10/10/2020 Encounters Date Type Department Care Team Description 11/11/2024 4:20 PM MICROBIOLOGY QUALITY CONTROL TECHNICIAN Office Visit [facility] [address] [place] [id number] Daniel Chun MD Chronic kidney disease, not otherwise specified (Primary Dx); Fluid retention, not otherwise specified 10/19/2024 Refill [facility] [address] [place] [address] Daniel Chun MD 09/19/2024 Refill [facility] [address] [address] Daniel Chun MD from Last 3 Months Family History Medical History Relation Comments Cancer Father Heart disease Father Hypertension Father Cancer Mother Diabetes Mother Hypertension Mother Relation Status Comments Father Mother Social History Tobacco Use Types Packs/Day Years Used Date Smoking Tobacco: Former Cigarettes Smokeless Tobacco: Never Tobacco Cessation:Counseling Given: Not Answered Sex and Gender Information Value Date Recorded Sex Assigned at Not on file Gender Identity Not on file Sexual Orientation Not on file Last Filed Vital Signs Vital Sign Reading Time Taken Comments Blood Pressure 116/69 11/11/2024 4:15 PM MICROBIOLOGY QUALITY CONTROL TECHNICIAN Pulse 85 11/11/2024 4:15 PM MICROBIOLOGY QUALITY CONTROL TECHNICIAN Temperature 36.6 C (97.9 F) 08/30/2021 1:49 PM MICROBIOLOGY QUALITY CONTROL TECHNICIAN Respiratory Rate - - Oxygen Saturation - - Inhaled Oxygen Concentration - - Weight 81.6 kg (180 lb) 11/11/2024 4:15 PM MICROBIOLOGY QUALITY CONTROL TECHNICIAN Height 165.1 cm (5' 5 ) 11/11/2024 4:15 PM MICROBIOLOGY QUALITY CONTROL TECHNICIAN Body Mass Index 29.95 11/11/2024 4:15 PM MICROBIOLOGY QUALITY CONTROL TECHNICIAN Plan of Treatment Upcoming Encounters Date Type Department Care Team ([facility] Contact Info) Description 11/10/2025 4:40 PM MICROBIOLOGY QUALITY CONTROL TECHNICIAN Office Visit [facility] [address] [address] Daniel Chun MD [address] [place] [address] Health Maintenance Due Date Last Done Comments Pneumococcal PPSV23 Highest Risk Adult (1 of 3 - PCV13 ) 1989 Influenza Vaccine (#1) 2024 Care Teams Privacy Director Relationship Specialty Start Date End Date Ute Betancourt MD [address] [place] [id number] PCP - General 07/18/20
--- OUTSIDE RECORDS SUMMARY | 2024-11-19 16:04 | XMS_ITS | Encounter Summary ---
[facility] Organization [facility] Address [address] [place] [address] Care Team Providers Care Drawbridge Operator Name Role Phone Charlie Mera MD Primary Care Provider Unavailab le Encounter Details Date Type Department Care Team (Late st Contact Info) Description 07/03/2005 Outpatient Historical [facility] Maternal and Ground Floor [address] [place] [id number] Pratik Asencio DO [address] [facility] [address] [place], [place] [id number] Social History Tobacco Use Types Packs/Day Years Used Date Smoking Tobacco: Never Assessed Comments Unknown Sex and Gender Information Value Date Recorded Sex Assigned at Not on file Legal Sex Female 4:21 AM BEHAVIOR MANAGEMENT SPECIALIST Gender Identity Not on file Sexual Orientation Not on file documented as of this encounter Plan of Treatment Not on file documented as of this encounter Visit Diagnoses Not on filedocumented in this encounter Care Teams Drawbridge Operator Relationship Specialty Start Date End Date Charlie Mera MD NO ADDRESS ON FILE PCP - General 09/19/05 documented as of this encounter
--- OUTSIDE RECORDS SUMMARY | 2024-11-19 16:04 | XMS_ITS | Encounter Summary ---
Author Organization [employer] Address [address] [place] [address] Care Team Providers Care Brick Chimney Supervisor Name Role Phone Charlie Mera MD Primary Care Provider Mary tapia Encounter Details Date Type Department Care Team (Latest Contact Info) Description 07/01/2005 Outpatient Historical [facility] Pratik Asencio, DO [address] [facility] [address] [address] RENAL DIS NOS-ANTEPARTUM (Primary Dx) Social History Tobacco Use Types Packs/Day Years Used Date Smoking Tobacco: Never Assessed Comments Unknown Sex and Gender Information Value Date Recorded Sex Assigned at Not on file Legal Sex Female 4:21 AM CLAIMS CUSTOMER SERVICE REPRESENTATIVE Gender Identity Not on file Sexual Orientation Not on file documented as of this encounter Plan of Treatment Not on file documented as of this encounter Visit Diagnoses Diagnosis 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
--- OUTSIDE RECORDS SUMMARY | 2024-11-19 16:04 | XMS_ITS | Encounter Summary ---
Author Organization [employer] Address 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
--- OUTSIDE RECORDS SUMMARY | 2024-11-19 16:04 | XMS_ITS | Encounter Summary ---
Author Organization [employer] Address [address] [place] [address] Care Team Providers Care Duck Operator Name Role Phone Charlie Mera MD Primary Care Provider Mary le Encounter Details Date Type Department Care Team (Late st Contact Info) Description 04/03/2004 Outpatient Historical [facility] [place] [address] 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
--- OUTSIDE RECORDS SUMMARY | 2024-11-19 16:04 | XMS_ITS | Encounter Summary ---
Author Organization [employer] Address [address] [place] [address] Care Team Providers Care Plant Breeder Scientist Name Role Phone Charlie Mera MD Primary Care Provider Mary tapia Encounter Details Date Type Department Care Team (Latest Contact Info) Description 04/28/2004 Outpatient Historical [facility] PATIENT IN A BED Jackson Theodore MD [address] [facility] [address] [place] [id number] OTHER CURR COND-ANTEPARTUM (Primary Dx) Social History Tobacco Use Types Packs/Day Years Used Date Smoking Tobacco: Never Assessed Comments Unknown Sex and Gender Information Value Date Recorded Sex Assigned at Not on file 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
--- OUTSIDE RECORDS SUMMARY | 2024-11-19 16:04 | XMS_ITS | Encounter Summary ---
Author Organization [employer] Address [address] [place] [address] Care Team Providers Care Customer Complaint Clerk Name Role Phone Charlie Mera MD Primary Care Provider Claudiaab le Encounter Details Date Type Department Care Team (Late st Contact Info) Description 06/08/2004 Outpatient Historical [facility], [address] Jb Blanco MD [address] [facility] [address] [address] [place] [address] PREG STATE, INCIDENTAL (Primary Dx) Social History Tobacco Use Types Packs/Day Years Used Date Smoking Tobacco: Never Assessed Comments Unknown Sex and Gender Information Value Date Recorded Sex Assigned at Not on file 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
--- OUTSIDE RECORDS SUMMARY | 2024-11-19 16:04 | XMS_ITS | Encounter Summary ---
Author Organization [email or web address] Address 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
--- OUTSIDE RECORDS SUMMARY | 2024-11-19 16:04 | XMS_ITS | Encounter Summary ---
Author Organization [facility] Address [address] [place] [address] Phone Care Team Providers Care Front End Manager Name Role Phone Ute Betancourt MD Primary Care Provider [phone] Reason for Visit * Reason Comments Med Refill Encounter Details Date Type Department Care Team ([facility] Contact Info) Description 10/19/2024 Refill [facility] [address] [place] [address] [address] [place] [address] Daniel Chun MD [address] [place] [phone] Social History Tobacco Use Types Packs/Day Years Used Date Smoking Tobacco: Former Cigarettes Smokeless Tobacco: Never Sex and Gender Information Value Date Recorded Sex Assigned at Not on file Gender Identity Not on file Sexual Orientation Not on file documented as of this encounter Miscellaneous Notes * Telephone Encounter - Sangita Emerson MA - 10/19/2024 10:09 AM CST Called into pharmacy documented in this encounter Plan of Treatment Upcoming Encounters Date Type Department Care Team (Late Contact Info) Description 11/10/2025 4:40 PM HIGH SCHOOL LEARNING SUPPORT TEACHER Office Visit [facility] [address] [place] [address] Daniel Chun MD [address] [address] documented as of this encounter Visit Diagnoses Not on filedocumented in this encounter Care Teams Front End Manager Relationship Specialty Start Date End Date Ute Betancourt MD [address] [place] [address] PCP - General 07/18/20 documented as of this encounter
--- OUTSIDE RECORDS SUMMARY | 2024-11-19 16:04 | XMS_ITS | Encounter Summary ---
Author Organization [facility] Address [address] [place] [address] Care Team Providers Care Hand Tool Filer Name Role Phone Charlie Mera MD Primary Care Provider Unavailab le Encounter Details Date Type Department Care Team (Late st Contact Info) Description 04/25/2004 Outpatient Historical [facility] [address] [place] [address] Gunner Alvarez MD [address] [facility] [address] [facility] [place] [address] Social History Tobacco Use Types Packs/Day Years Used Date Smoking Tobacco: Never Assessed Comments Unknown Sex and Gender Information Value Date Recorded Sex Assigned at Not on file Legal Sex Female 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
--- OUTSIDE RECORDS SUMMARY | 2024-11-19 16:04 | XMS_ITS | Clinical Summary ---
Author Organization [facility] Address [address] [place] [address] Care Team Providers Care Oil Tester Name Role Phone Ute Betancoutr NP Primary Care Provider [phone] Elie Mojica MD Unavailable [phone] Allergies Active Allergy Reactions Criticality Noted Date [...] (10/17/2020): Added automatically from request for surgery [id number] Encounters Date Type Department Care Team Description 09/10/2024 9:00 AM OFFAL BALER - 09/10/2024 9:50 AM [facility] Surgery [facility] Cardiac Mechanical Assembly Technician [address] [place] [address] Luis Gutierrez MD LEFT HEART CATHETERIZATION WITH CORONARY ANGIOGRAPHY AND WITH OR WITHOUT LEFT VENTRICULOGRAM [id number] 09/10/2024 6:57 AM OFFAL BALER - 09/10/2024 1:12 PM OFFAL BALER Hospital Encounter [facility] Cardiac Mechanical Assembly Technician [address] [place] [address] Luis Gutierrez MD Abnormal stress test Discharge Disposition: Discharge to home or self care 08/24/2024 Telephone [facility] Cardiology [address] [place] [address] [address] [place] [address] Luis Gutierrez MD [facility] from Last 3 Months Surgical History Surgery Date Site/Laterality Comments APPENDECTOMY HYSTERECTOMY GALLBLADDER SURGERY BACK SURGERY TONSILLECTOMY AND ADENOIDECTOMY LAPAROTOMY LITHOTRIPSY NEPHROURETERAL STENT PLACEMENT NEW ACCESS LEFT 11/02/19 21 Left URETERAL STENT PLACEMENT VIA EXISTING TRACT LEFT 2020 Left Medical History Medical History Date Comments Left renal stone Anxiety and depression Family History Medical History Relation Name Comments Coronary artery disease Father Heart disease Father Relation Name Status Comments Father Social History Tobacco Use Types Packs/Day Years [...] on file Legal Sex Female 6:52 AM OFFAL BALER Gender Identity Not on file Sexual Orientation Not on file Obstetrics History Last Filed Vital Signs Vital Sign Reading Time Taken Comments Blood Pressure 121/77 09/10/2024 12:30 PM OFFAL BALER Pulse 73 09/10/2024 12:30 PM OFFAL BALER Temperature 36.8 C (98.2 F) 09/28/2021 4:08 PM OFFAL BALER Respiratory Rate 13 09/10/2024 12:3 0 PM OFFAL BALER Oxygen Saturation 98% 09/10/2024 12: 30 PM OFFAL BALER Inhaled Oxygen Concentration - - Weight 84.3 kg (185 lb 12.8 oz) 022 10:07 AM CDT Height 167.6 cm (5' 6 ) 11/30/2021 10:0 7 AM CDT Body Mass Index 29.99 11/30/2021 10:07 AM CDT Plan of Treatment Health Maintenance Due Date Last Done Comments Colon Cancer Screening-Colonoscopy 1970 Depression Screening 1970 Hepatitis C Screening 1970 Hepatitis B Screening 1988 Regular Well Visit/Exam 18-64 1988 Pneumococcal vaccine <65 (1 of 2 - PCV) 1989 Zoster Vaccine (1 of 2) 2020 Influenza Vaccine (#1) 2024 Breast Cancer Screening-Mammogram 09/10/2024 09/10/2023, 09/07/2023, 09/07/2023, Additional history exists DTaP/Tdap/Td Vaccine (3 - Td or Tdap) 05/23/2032 05/23/2022, 08/13/2012 Medical Devices Implanted Type Area Shear Helper Device Identifier Shelf Expiration Date Model / Serial / Lot Spinal Cord Stimulator-2/2 04/2020 Implanted:Qty: 1 on 11/13/2019 by Dileep Colorado MD Spinal Cord Stimulator Left: Back Medtronic [id number] / [id number] / [place] [employer]varo 400-171 C-Flex 6fr 70cm Taper Tip 1 Lumen Injection Hub Radiopaque Latex Free - Sn/A - [id number] Implanted:Qty: 1 on 11/02/2020 by Elie Mojica MD at [facility] Stent [place] [employer] 05/10/2024 [id number] / N/A / [id number] [employer] [id number] Amplatz 8.5fr 26cm 6 Sideport Introducer Catheter String - [id number] Implanted:Qty: 1 on 11/03/2020 at [facility] [employer] 09/29/2023 [id number] / / [id number] Procedures Procedure Name Priority Date/Time Associated Diagnosis Comments LEFT HEART CATHETERIZATION WITH CORONARY ANGIOGRAPHY AND WITH AND WITHOUT LEFT VENTRICULOGRAM Routine 09/10/2024 9:49 AM OFFAL BALER Abnormal stress test ECG 12-LEAD Routine 09/10/2024 7:38 AM OFFAL BALER B ABO / RH CONFIRMATION TESTING STAT 09/10/2024 7:38 AM OFFAL BALER EGFR STAT 09/10/2024 7:20 AM OFFAL BALER DIFFERENTIAL AUTO STAT 09/10/2024 7:2 0 AM OFFAL BALER ANTIBODY SCREEN STAT 09/10/2024 7:20 AM OFFAL BALER ABO/RH STAT 09/10/2024 7:20 AM OFFAL BALER PROTIME-INR STAT 09/10/2024 7:20 AM OFFAL BALER TYPE AND SCREEN STAT 09/10/2024 7:20 AM OFFAL BALER APTT STAT 09/10/2024 7:20 AM OFFAL BALER CBC WITH AUTO DIFFERENTIAL STAT 09/10/2024 7:20 AM OFFAL BALER BASIC METABOLIC PANEL STAT 09/10/2024 7:20 AM OFFAL BALER from Last 3 Months Results * LEFT HEART CATHETERIZATION WITH CORONARY ANGIOGRAPHY AND WITH AND WITHOUT LEFT VENTRICULOGRAM (09/10/2024 9:49 AM OFFAL BALER) Anatomical Region Laterality Modality X-Ray Angiograph y Impressions 09/10/2024 9:51 AM OFFAL BALER No significant coronary artery disease. THERAPEUTIC RECOMMENDATIONS: Continue medical management and risk factor modification. Hemostasis was achieved using a TR band. Discharge home later this afternoon. The case was reviewed and discussed with the referring physician and patient as well as her family. Narrative 09/10/2024 9:51 AM OFFAL BALER CORONARY ANGIOGRAM REPORT Patient: Anh Martino : 1970 Date of Service: 09/10/2024 Dropper Tank Storage: Luis Gutierrez MD Referring physician: Gulshan Macdonald MD PATIENT CLINICAL PROFILE: Anh Martino is a 53 y.o. female with a history of abnormal stress test prior to planned spine surgery, referred for angiography. PROCEDURE: The risks, benefits and alternatives of the procedures and moderate sedation were explained to the patient and informed consent was obtained. The patient was brought to the golf course laborer and placed on the table. Right radial [...] Coronary Artery Angiogram was performed using a Irwin Catheter. Right Coronary Artery Angiogram was performed using a Irwin Catheter. At the end of the procedure, hemostasis was obtained via TR band Patient was transferred to holding area in stable condition. RESULTS: Coronary Arteriography: Left main coronary: no significant disease Left Anterior Decending: no significant disease Left Circumflex: no significant disease Right Coronary Artery: Right Dominant System. no significant disease. COMPLICATIONS: none Estimated Blood Loss: 10 cc Specimens: none DIAGNOSTIC Luis Gutierrez MD CV CARDIAC CATH PROCEDURE S Final Result * ECG 12 lead (09/10/2024 7:38 AM OFFAL BALER) Pathologist [facility] Ventricular Rate EKG/Min 82 BPM [facility] Atrial Rate 82 BPM [facility] DC-Interval (MSEC) 166 ms [facility] QRS-Interval (MSEC) 94 ms [facility] QT-Interval (MSEC) 394 ms [facility] QTc 460 ms [facility] P Bison 34 degrees [facility] R Bison 37 degrees [facility] T Bison 32 degrees [facility] Diagnosis Normal sinus rhythm Normal ECG When compared with ECG of 03-AUG-2024 08:33, No significant change was found Confirmed by RONNIE CISNEROS M.D. ([id number]) on 09/11/2024 10:35:26 AM [facility] 09/10/2024 7:38 AM OFFAL BALER 09/11/2024 10:35 AM OFFAL BALER us Luis Gutierrez MD ECG ORDERABLES Final Res ult [facility] * ABO / Rh Confirmation Testing (09/10/2024 7:38 AM OFFAL BALER) Pathologist [facility] ABO/Rh Confirmation O Negative [facility] Comment:Testing performed by : [facility], [address] [place] [address], [place]., [address] Blood 09/10/2024 7:38 AM OFFAL BALER 09/10/2024 7:42 AM OFFAL BALER us Luis Gutierrez MD LAB BLOOD ORDERABLES Gina l Result Performing Organization Address City/[facility]/ZIP Co de Phone Number ALANIS [address] [place] [address] MHB * eGFR (09/10/2024 7:20 AM OFFAL BALER) eGFR 60 >=60 mL/min/1. 73 m2 Comment: [...] of Race in Diagnosing Kidney Disease, JASN 2020). The CKD-EPI equation should not be used for patients with unstable renal function and has not been validated in children and those over 70. Current interpretive data was last reviewed 2021. Testing performed by: [address] [address] Blood 09/10/2024 7:20 AM OFFAL BALER 09/10/2024 7:27 AM OFFAL BALER us Luis Gutierrez MD LAB BLOOD ORDERABLES Gina l Result Performing Organization Address City/[facility]/ZIP Co de Phone Number ALANIS [address] [place] [address] * Differential, auto (09/10/2024 7:20 AM OFFAL BALER) Neutrophil abs 3.7 1.5 - 6.5 K/cumm Comment:Testing performed by : [address] [address] Imm gran abs 0.0 0.0 - 0.1 K/cumm [facility] Comment:Testing performed by : [address] [address] Lymphocyte abs 1.3 0.8 - 3.3 K/cumm [facility] Comment:Testing performed by : [address] [address] Monocyte abs 0.5 0.2 - 0.8 K/cumm [facility] Comment:Testing performed by : [address] [address] Eosinophil abs 0.2 0.0 - 0.5 K/cumm [facility] Comment:Testing performed by : [address] [address] Basophil abs 0.0 0.0 - 0.1 K/cumm [facility] Comment:Testing performed by : [address] [address] Neutrophil pct 64.2 % [facility] Comment: Interpretive Data Percent cell count reference ranges are not reported, since discordance with absolute values may lead to misinterpretation of CBC data. Current Interpretive Data was last revised on 2017. Testing performed by: [address] [address] Imm gran pct 0.2 % [facility] Comment: Interpretive Data Percent cell count reference ranges are not reported, since discordance with absolute values may lead to misinterpretation of CBC data. Current Interpretive Data was last revised on 2017. Testing performed by: [address] [address] Lymphocyte pct 22.9 % [facility] Comment: Interpretive Data Percent cell count reference ranges are not reported, since discordance with absolute values may lead to misinterpretation of CBC data. Current Interpretive Data was last revised on 2017. Testing performed by: [address] [address] Monocyte pct 9.0 % [facility] Comment: Interpretive Data Percent cell count reference ranges are not reported, since discordance with absolute values may lead to misinterpretation of CBC data. Current Interpretive Data was last revised on 2017. Testing performed by: [address] [address] Eosinophil pct 3.3 % ALANIS [facility]YONS Comment: Interpretive Data Percent cell count reference ranges are not reported, since discordance with absolute values may lead to misinterpretation of CBC data. Current Interpretive Data was last revised on 2017. Testing performed by: [address] [address] Basophil pct 0.4 % ALANIS [facility]YONS Comment: Interpretive Data Percent cell count reference ranges are not reported, since discordance with absolute values may lead to misinterpretation of CBC data. Current Interpretive Data was last revised on 2017. Testing performed by: [address] [address] Blood 09/10/2024 7:20 AM OFFAL BALER 09/10/2024 7:27 AM OFFAL BALER Luis Gutierrez MD LAB BLOOD ORDERABLES Gina gaspar Result [facility] Department [place] [address] * CBC with auto differential (09/10/2024 7:20 AM OFFAL BALER) WBC 5.7 3.8 - 9.9 K/cumm Comment:Testing performed by : [address] [address] Hgb 13.0 11.9 - 15.5 g/dL ALANIS LYONS Comment:Testing performed by : [address] [address] Hct 37.7 35.6 - 45.5 % ALANIS LYONS Comment:Testing performed by : [address] [address] Plt 167 150 - 400 K/cumm ALANIS LYONS Comment:Testing performed by : [address] [address] MPV 10.2 9.1 - 12.3 fL ALANIS LYONS Comment:Testing performed by : [address] [address] RBC 4.41 3.90 - 5.20 M/cumm ALANIS LYONS Comment:Testing performed by : [address] [address] MCV 85.5 81.3 - 96.4 fL ALANIS Comment:Testing performed by : [address] [address] MCH 29.5 27.1 - 33.3 pg ALANIS LYONS Comment:Testing performed by : [address] [address] MCHC 34.5 32.3 - 35.7 g/dL ALANIS Comment:Testing performed by : [address] [address] RDW CV 12.3 11.1 - 14.9 % ALANIS Comment:Testing performed by : [address] [address] RDW SD 38.3 35.7 - 48.1 fL ALANIS Comment:Testing performed by : [address] [address] NRBC abs 0.00 0.00 - 0.01 K/cumm ALANIS Comment:Testing performed by : [address] [address] Blood 09/10/2024 7:20 AM OFFAL BALER 09/10/2024 7:27 AM OFFAL BALER Narrative ALANIS - 09/10/2024 7:31 AM OFFAL BALER If most recent labs were drawn prior to 4 AM, draw only prior to initiating procedure. us Luis Gutierrez MD LAB BLOOD ORDERABLES Gina l Result ALANIS [address] [facility] Department [place] [address] * ABO/Rh (09/10/2024 7:20 AM OFFAL BALER) ABO/Rh O Negative Comment:Testing performed by : [address] [address] Blood 09/10/2024 7:20 AM OFFAL BALER 09/10/2024 7:27 AM OFFAL BALER Narrative ALANIS - 09/10/2024 8:08 AM OFFAL BALER Has the patient had Daratumumab or Isatuximab in the past 6 months?->Unknown Luis Gutierrez MD LAB BLOOD BANK TEST ORDER ANNITA Final Result Performing Organization Address [facility] Co de Phone Number [address] [address] * aPTT (09/10/2024 7:20 AM OFFAL BALER) aPTT 29 22 - 37 sec Comment: Interpretive data aPTT test has not been evaluated for monitoring heparin therapy. The anti-Xa is the preferred test. Current interpretive data was last revised on 2019. Testing performed by: [address] [address] Blood 09/10/2024 7:20 AM OFFAL BALER 09/10/2024 7:27 AM OFFAL BALER Luis Gutierrez MD LAB BLOOD ORDERABLES Gina l Result Performing Organization Address [facility] Co de Phone Number [address] [address] * Protime-INR (09/10/2024 7:20 AM OFFAL BALER) PT 13.3 12.0 - 14.6 sec Comment:Testing performed by : [address] [address] INR 1.0 0.9 - 1.2 ALANIS Comment: Ref Range High Interpretive data Oral anticoagulant therapeutic ranges: Venous thromboembolism prophylaxis or treatment: 2.0-3.0 CARDIOLOGY Standard range: 2.0-3.0 High-intensity range: 2.5-3.5 Refer to indication-specific guidelines for appropriate target ranges for prosthetic heart valve replacement. Current interpretive data was last revised on 2019. Testing performed by: [address] [address] Blood 09/10/2024 7:20 AM OFFAL BALER 09/10/2024 7:27 AM OFFAL BALER Luis Gutierrez MD LAB BLOOD ORDERABLES Gina l Result Performing Organization Address [facility] Co de Phone Number ALANIS [address] [address] * Antibody screen (09/10/2024 7:20 AM OFFAL BALER) Pathologist [facility] Juanjo, indirect, Gel Interpretation Negative ABSC Comment:Testing performed by : [address] [address] Blood 09/10/2024 7:20 AM OFFAL BALER 09/10/2024 7:27 AM OFFAL BALER Narrative ALANIS - 09/10/2024 8:08 AM OFFAL BALER Has the patient had Daratumumab or Isatuximab in the past 6 months?->Unknown Luis Gutierrez MD LAB BLOOD BANK TEST ORDER ANNITA Final Result Performing Organization Address [facility] de Phone Number [address] [address] * Basic metabolic panel (09/10/2024 7:20 AM OFFAL BALER) [facility] Sodium 139 135 - 145 mmol/L Comment:Testing performed by : [address] [address] Potassium, pl 4.0 3.3 - 4.9 mmol/L ALANIS Comment:Testing performed by : [address] [address] Chloride 105 97 - 110 mmol/L ALANIS Comment:Testing performed by : [address] [address] CO2 22 22 - 32 mmol/L ALANIS Comment:Testing performed by : [address] [address] Anion gap 12 2 - 15 mmol/L ALANIS Comment:Testing performed by : [address] [address] BUN 13 6 - 25 mg/dL ALANIS Comment:Testing performed by : [address] [address] Creatinine 1.10 0.60 - 1.10 mg/dL ALANIS Comment:Testing performed by : [address] [address] Glucose 94 70 - 199 mg/dL ALANIS [...] classification and Diagnosis of Diabetes Diabetes Care 2021; 46: S19-S40. Current interpretive data was last revised 2022. Testing performed by: [address] [address] Calcium 9.8 8.5 - 10.3 mg/dL ALANIS Comment:Testing performed by : [address] [address] Blood 09/10/2024 7:20 AM OFFAL BALER 09/10/2024 7:27 AM OFFAL BALER Luis Gutierrez MD LAB BLOOD ORDERABLES Gina gaspar Result [facility] [address] [facility] Department of Laboratories [place], [place] [id number] from Last 3 Months Insurance [employer] CHOICE MEDICARE PPO [employer] MED[employer]ARE [employer]UTIONS Advance Directives For more information, please contact: [phone] Documents on File Type Date Recorded Patient Wire Bender Hand Expl anation ADVANCE DIRECTIVE 01/01/2013 12:00 AM MERARI R OF GROUND CREW SUPERVISOR FINANCIAL/MEDICAL * Full Code (Latest Code Status on File) Date Activated Date Inactivated Comments 11/02/2020 5:55 PM 11/03/2020 9:22 PM Care Teams Oil Tester Relationship Specialty Start Date End Date Ute Betancourt NP PCP - General 11/13/19 [place] [address] [place] [address] Consulting Physician Urology 11/03/20
--- OUTSIDE RECORDS SUMMARY | 2024-11-19 16:04 | XMS_ITS | Encounter Summary ---
Author Organization [facility] Address [address] [place] [address] Care Team Providers Care Card Clothier Name Role Phone Charlie Mera MD Primary Care Provider Unavail le Encounter Details Date Type Department Care Team (Late st Contact Info) Description 05/25/2004 Outpatient Historical [facility], [address] Jb Blanco MD [address] [facility] [address] [address] [place] [address] ABDOMINAL PAIN UNSPEC SITE (Primary Dx) Social History Tobacco Use Types Packs/Day Years Used Date Smoking Tobacco: Never Assessed Comments Unknown Sex and Gender Information Value Date Recorded Sex Assigned at Not on file Legal Sex Female 4:21 AM COFFEE SAMPLER Gender Identity Not on file Sexual Orientation Not on file documented as of this encounter Plan of Treatment Not on file documented as of this encounter Visit Diagnoses Diagnosis Abdominal pain, unspecified site- Primary documented in this encounter Care Teams Card Clothier Relationship Specialty Start Date End Date Charlie Mera MD NO ADDRESS ON FILE PCP - General 09/19/05 documented as of this encounter
--- OUTSIDE RECORDS SUMMARY | 2024-11-19 16:04 | XMS_ITS | Encounter Summary ---
Author Organization [facility] Address [address] [place] [address] Care Team Providers Care Sugar Refiner Name Role Phone Ute Betancourt NP Primary Care Provider [phone] Elie Mojica MD Unavailable [phone] Encounter Details Date Type Department Care Team (Late st Contact Info) Description 11/02/2020 Telephone [facility] - Interventional Radiology [facility] [place] [address] Arabella Gomez RN Social History Tobacco Use Types Packs/Day Years Used Date Smoking Tobacco: Every Day Vaping Smokeless Tobacco: Never Alcohol Use Standard Drinks/Week Comments Not Currently 0 (1 standard drink = 0.6 oz pur e alcohol) Comments No Sex and Gender Information Value Date Recorded Sex Assigned at Not on file Legal Sex Female 6: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 Gender Identity Not on file Sexual Orientation Not on file documented as of this encounter Plan of Treatment Not on file documented as of this encounter Visit Diagnoses Not on filedocumented in this encounter Additional Health Concerns Infection Onset Date Last Indicated Resolved Time COVID: Suspected 09/28/2021 09/28/2021 09/29/2021 6:55 PM 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 documented as of this encounter Care Teams Sugar Refiner Relationship Specialty Start Date End Date Ute Betancourt NP PCP - General 11/13/19 [place] [address] [place] [address] Consulting Physician Urology 11/03/20 documented as of this encounter
--- OUTSIDE RECORDS SUMMARY | 2024-11-19 16:04 | XMS_ITS | Encounter Summary ---
Author Organization [facility] Address [address] [place] [address] Care Team Providers Care Web Database Developer Name Role Phone Charlie Mera MD Primary Care Provider Unavailab le Encounter Details Date Type Department Care Team (Late st Contact Info) Description 07/03/2005 Outpatient Historical [facility] Maternal and Ground [address] [place] [address] Pratik Asencio DO [address] [facility]- [place], [place] [id number] Social History Tobacco Use Types Packs/Day Years Used Date Smoking Tobacco: Never Assessed Comments Unknown Sex and Gender Information Value Date Recorded Sex Assigned at Not on file Legal Sex Female 4:21 AM SONG AND DANCE PERFORMER Gender Identity Not on file Sexual Orientation Not on file documented as of this encounter Plan of Treatment Not on file documented as of this encounter Visit Diagnoses Not on filedocumented in this encounter Care Teams Web Database Developer Relationship Specialty Start Date End Date Charlie Mera MD NO ADDRESS ON FILE PCP - General 09/19/05 documented as of this encounter
--- OUTSIDE RECORDS SUMMARY | 2024-11-19 16:04 | XMS_ITS | Encounter Summary ---
Author Organization [facility] Address [address] [place] [address] Care Team Providers Care Diorama Model Maker Name Role Phone Charlie Mera MD Primary Care Provider Mary le Encounter Details Date Type Department Care Team (Late st Contact Info) Description 04/25/2004 Outpatient Historical [facility] CATINA Blanco, Jb Garcia MD [address] [facility] [address] [address] [place] [address] PREG STATE, INCIDENTAL (Primary Dx) Social History Tobacco Use Types Packs/Day Years Used Date Smoking Tobacco: Never Assessed Comments Unknown Sex and Gender Information Value Date Recorded Sex Assigned at Not on file Legal Sex Female 4:21 AM SMOKE EATER Gender Identity Not on file Sexual Orientation Not on file documented as of this encounter Plan of Treatment Not on file documented as of this encounter Visit Diagnoses Diagnosis state, incidental- Primary documented in this encounter Care Teams Diorama Model Maker Relationship Specialty Start Date End Date Charlie Mera MD NO ADDRESS ON FILE PCP - General 09/19/05 documented as of this encounter
--- OUTSIDE RECORDS SUMMARY | 2024-11-19 16:05 | XMS_ITS | Encounter Summary ---
Author Organization [facility] Address [address] [place] [address] Care Team Providers Care Obstetrics Gyn Physician Name Role Phone Ute Betancourt NP Primary Care Provider [phone] Lina Arboleda MD Unavailable [phone] Orly Michaud MD Unavailable [phone] Encounter Details Date Type Department Care Team (Late st Contact Info) Description 08/25/2019 Prep for Procedure [facility] [place] [address] Chaparrita Demarco FNP [address], [place] [id number] Anesthesia Record Procedure Summary Procedure Name Responsible Anesthesiologist Anesthesia Start Time Anesthesia Stop Time CYSTOSCOPY RIGHT URETEROSCOPY 100 WATT HOLMIUM LASER LITHOTRIPSY RIGHT URETERAL STENT PLACEMENT (Right: Ureter) Marlee Jones MD 09/04/19 1306 09/04/19 1357 Events Date Time Event Comment 09/04/2019 1148 AN SENIOR LABEL SPECIALIST Prepped 1154 1154 AN Anesthesia Prepped 1306 An Start Patient ID and consent checked and patient reassessed. 1310 An Start Data 1312 Preoxygenation 1313 An Induction 1317 An LMA 1322 Anesthesia Ready 1346 An Emergence 1351 LMA Removed 1353 an stop data 1356 Post Anesthetic Care Handoff I completed my handoff to the receiving nurse during which we: 1. Identified the patient 2. Identified the responsible provider 3. Reviewed the pertinent medical history 4. Discussed the surgical course 5. Reviewed intra-op anesthesia management and issues during anesthesia 6. Set expectations for post-procedure period 7. Allowed opportunity for questions and acknowledgement of understanding. 1357 An Stop Meds * Agents No agents on file. * Blood No blood administrations on file. Lines, Drains, and Airways Type Details Placement Removal Peripheral IV Placement Date: 08/17 ; Placement Time: 1115; Placed Outside of This Facility?: No; Size: 20 G; Orientation: Left; Location: Upper arm; Site Prep: Chlorhexidine; Local Anesthetic: None; Insertion attempts: 1; Ultrasound-guided Placement?: No; Patient Tolerance: Tolerated well; Removal Date: 09/04/19; Removal Time: 1600; Removal Reason: Patient Discharged 09/04/19 1115 by Abby Castelan RN 09/04/19 1600 by Hailee Maldonado RN Supraglottic Airway Placement Date: 08/17 ; Placement Time: 1317; Airway Device: LMA; LMA Size: 4; Style: Other (iGel); Insertion Attempts:1; Breath Sounds:Clear bilaterally, Equal bilaterally; Extubation Assessment: Atraumatic, Deep, Patient spontaneously breathing, Tolerated well; Removal Date: 09/04/19; Removal Time: 1351; Removal Person: SENIOR LABEL SPECIALIST; Removal Reason: End of Case 09/04/19 1317 by Jai Monroy CRNA 09/04/19 1351 by Jai Monroy CRNA documented in this encounter Social History Tobacco Use Types Packs/Day Years Used Date Smoking Tobacco: Every Day Electronic Cigarettes Smokeless Tobacco: Never Alcohol Use Standard Drinks/Week Comments No 0 (1 standard drink = 0.6 oz pur e alcohol) Comments No Sex and Gender Information Value Date Recorded Sex Assigned at Female 11/07/2024 8:08 AM LIFE SCIENCE TEACHER Legal Sex Female 3:59 PM CDT Gender Identity Not on file Sexual Orientation Not on file Occupation Industry Job Start Date Job End Date Not on file Not on file Not on file Not on file documented as of this encounter Plan of Treatment Not on file documented as of this encounter Results * (ABNORMAL) DRUG SCREEN RAPID (09/04/2019 10:28 AM LIFE SCIENCE TEACHER) AMPHETAMINE (U) NEGATIVE NEGATIVE 9 11:11 AM LIFE SCIENCE TEACHER [facility] BARBITURATES SCREEN (U) NEGATIVE NEGATIVE 09/04/2019 11:11 AM [facility] BENZODIAZEPINES SCREEN (U) POSITIVE(A) NEGATIVE 09/04/2019 11:11 AM [facility] CANNABINOIDS SCREEN (U) POSITIVE(A) NEGATIVE 09/04/2019 11:11 AM [facility] COCAINE METABOLITES (U) NEGATIVE NEGATIVE 09/04/2019 11:11 AM [facility] METHADONE (U) NEGATIVE NEGATIVE 09/04/2019 11:11 AM [facility] OPIATE SCREEN (U) NEGATIVE NEGATIVE 019 11:11 AM [facility] PHENCYCLIDINE PCP (U) NEGATIVE NEGATIVE 09/04/2019 11:11 AM [facility] Comment: NOTE: RESULTS OF THIS DRUG SCREEN SHOULD BE USED FOR MEDICAL PURPOSES ONLY AND NOT FOR LEGAL OR EMPLOYMENT PURPOSES. POSITIVE RESULTS ARE NOT CONFIRMED. MEDICATIONS CONTAINING EPHEDRINE MAY CAUSE FALSE POSITIVE AMPHETAMINE CALL [phone], LAB, TO REQUEST CONFIRMATION TESTING. IF CREATININE IS <40 mg/dL. RECOLLECTION IS SUGGESTED. AMPHETAMINE- 500 NG/ML BARBITURATE- 200 NG/ML BENZODIAZEPINES- 200 NG/ML THC- 50 NG/ML COCAINE- 150 NG/ML METHADONE- 300 NG/ML OPIATE- 300 MG/ML PCP- 25 NG/ML CREATININE (U) 230.0(H) 28 - 217 MG/DL 09/04/2019 11:11 AM [facility] Urine specimen (specimen) URINE SPECIMEN / Unknown 09/04/2019 10:28 AM LIFE SCIENCE TEACHER us Chaparrita Demarco REGULATORY CONSULTANT URINE ORDERABLES Final Result [facility] [address] [place] [address], [place] [phone] documented in this encounter Visit Diagnoses Diagnosis Preop examination- Primary Preoperative examination, unspecified documented in this encounter Additional Health Concerns Infection Onset Date Last Indicated Resolved Time COVID-19 Rule Out 05/16/2020 05/16/2020 05/16/2020 8:08 AM CDT COVID-19 Rule Out 07/25/2020 07/25/2020 07/27/2020 2:31 PM LIFE SCIENCE TEACHER COVID-19 Rule Out 02/16/2021 02/16/2021 02/16/2021 9:46 AM CDT COVID-19 Rule Out 05/18/2021 05/18/2021 05/19/2021 4:06 PM CDT documented as of this encounter Care Teams Obstetrics Gyn Physician Relationship Specialty Start Date End Date Ute Betancourt NP [address] [facility] [address] [place] [address] PCP - General FAMILY PRACTICE 03/16/17 Lina Arboleda MD [facility]. [address] [place] [address] [facility] Case Manager CARDIOVASCULAR DISEASE 03/28/17 Orly Michaud MD [address] [facility] [address] [place] [address] Referring Physician GASTROENTEROLOGY 08/24/19 documented as of this encounter
--- OUTSIDE RECORDS SUMMARY | 2024-11-19 16:05 | XMS_ITS | Encounter Summary ---
Author Organization [employer] Address [address] [place] [address] Care Team Providers Care Home Delivery Driver Name Role Phone Charlie Mera MD Primary Care Provider Mary tapia Encounter Details Date Type Department Care Team (Latest Contact Info) Description 08/14/2005 Inpatient Historical HIS PATIENT IN A BED Jackson Theodore MD [address] [employer] [place] [address] Pratik Asencio DO [address] [place], [place] [id number] EARLY ONSET DELIVERY-DEL (Primary Dx) Social History Tobacco Use Types Packs/Day Years Used Date Smoking Tobacco: Never Assessed Comments Unknown Sex and Gender Information Value Date Recorded Sex Assigned at Not on file Legal Sex Female 4:21 AM REAL ESTATE INVESTMENT ANALYST Gender Identity Not on file Sexual Orientation Not on file documented as of this encounter Plan of Treatment Not on file documented as of this encounter Procedures Procedure Name Priority Date/Time Associated Diagnosis Comments HEMOGLOBIN AND HEMATOCRIT Routine 08/16/2005 5:30 AM REAL ESTATE INVESTMENT ANALYST CBC WITH DIFFERENTIAL Routine 08/15/2005 5:10 PM REAL ESTATE INVESTMENT ANALYST CBC WITH DIFFERENTIAL Routine 08/15/2005 5:10 PM REAL ESTATE INVESTMENT ANALYST URIC ACID Routine 08/15/2005 5:10 PM REAL ESTATE INVESTMENT ANALYST AST Routine 08/15/2005 5:10 PM REAL ESTATE INVESTMENT ANALYST LACTATE DEHYDROGENASE Routine 08/15/2005 5:10 PM REAL ESTATE INVESTMENT ANALYST documented in this encounter Results * (ABNORMAL) HEMOGLOBIN AND HEMATOCRIT (08/16/2005 5:30 AM REAL ESTATE INVESTMENT ANALYST) HEMOGLOBIN 10.8(L) 11.8 - 14.8 g/dL INTERFACE SYSTEM HEMATOCRIT 32.3(L) 35.5 - 44.0 % INTERFACE SYSTEM 08/16/2005 5:30 AM REAL ESTATE INVESTMENT ANALYST Pratik Asencio DO HEMATOLOGY ORDERABLES Final Re sult Performing Organization Address [facility] de Phone Number INTERFACE SYSTEM Refer to clinic/hospital department * (ABNORMAL) CBC WITH DIFFERENTIAL (08/15/2005 5:10 PM REAL ESTATE INVESTMENT ANALYST) NEUTROPHILS 79(H) 45 - 70 % INTERFAC E SYSTEM LYMPHOCYTES 13(L) 16 - 45 % INTERFAC E SYSTEM MONOCYTES 7 3 - 13 % INTERFACE SYSTEM EOSINOPHILS 0 0 - 7 % INTERFAC E SYSTEM BASOPHILS 0 0 - 2 % INTERFACE SYSTEM NEUTROPHIL ABSOLUTE 8.64(H) 1.90 - 7.00 K/uL INTERFACE SYSTEM LYMPHOCYTE ABSOLUTE 1.44 0.70 - 4.50 K/uL INTERFACE SYSTEM MONOCYTE ABSOLUTE 0.79 0.10 - 1.30 K/uL INTERFACE SYSTEM EOSINOPHIL ABSOLUTE 0.04 0.00 - 0.70 K/uL INTERFACE SYSTEM BASOPHILS ABSOLUTE 0.01 0.00 - 0.20 K/uL INTERFACE SYSTEM 08/15/2005 5:10 PM REAL ESTATE INVESTMENT ANALYST Pratik Asencio DO HEMATOLOGY ORDERABLES Final Re sult Performing Organization Address [facility] de Phone Number INTERFACE SYSTEM Refer to clinic/hospital department * (ABNORMAL) CBC WITH DIFFERENTIAL (08/15/2005 5:10 PM REAL ESTATE INVESTMENT ANALYST) WBC 10.9(H) 4.0 - 9.8 K/uL INTERFACE SYSTEM RBC 4.08 3.90 - 4.90 M/uL INTERFACE SYSTEM HEMOGLOBIN 11.7(L) 11.8 - 14.8 g/dL INTERFACE SYSTEM HEMATOCRIT 34.4(L) 35.5 - 44.0 % INTERFACE SYSTEM MCV 84.3 82.0 - 99.0 fL INTERFACE SYSTEM MCH 28.7 27.2 - 32.6 pg INTERFACE SYSTEM MCHC 34.0 31.5 - 35.5 % INTERFACE SYSTEM RDW 13.4 11.5 - 14.5 % INTERFACE SYSTEM RDW-STDEV 40.4 37.1 - 48.7 fL INTERFACE SYSTEM PLATELETS 172 140 - 350 K/uL INTERFACE SYSTEM MPV 11.6 9.3 - 12.4 fL INTERFACE SYSTEM 08/15/2005 5:10 PM REAL ESTATE INVESTMENT ANALYST Pratik Asencio DO HEMATOLOGY ORDERABLES Final Re sult Performing Organization Address [facility] Phone Number INTERFACE SYSTEM Refer to clinic/hospital department * URIC ACID (08/15/2005 5:10 PM REAL ESTATE INVESTMENT ANALYST) URIC ACID 3.7 2.3 - 6.6 mg/dL INTERFACE SYSTEM 08/15/2005 5:10 PM REAL ESTATE INVESTMENT ANALYST Pratik Asencio DO CHEMISTRY ORDERABLES Final Res ult Performing Organization Address [facility] Phone Number INTERFACE SYSTEM Refer to clinic/hospital department * LACTATE DEHYDROGENASE (08/15/2005 5:10 PM REAL ESTATE INVESTMENT ANALYST) LD (LACTATE DEHYDROGENASE) 175 135 - 214 U/L INTERFACE SYSTEM 08/15/2005 5:10 PM REAL ESTATE INVESTMENT ANALYST Pratik Asencio DO CHEMISTRY ORDERABLES Final Res ult Performing Organization Address [facility] Phone Number INTERFACE SYSTEM Refer to clinic/hospital department * AST (08/15/2005 5:10 PM REAL ESTATE INVESTMENT ANALYST) AST 19 12 - 32 U/L INTERFAC E SYSTEM 08/15/2005 5:10 PM REAL ESTATE INVESTMENT ANALYST us Pratik Asencio DO CHEMISTRY ORDERABLES Final Res ult Performing Organization Address [facility] Phone Number INTERFACE SYSTEM Refer to clinic/hospital department documented in this encounter Visit Diagnoses Diagnosis Early onset of delivery, delivered, with or without mention of antepartum condition- Primary documented in this encounter Care Teams Home Delivery Driver Relationship Specialty Start Date End Date Charlie Mera MD NO ADDRESS ON FILE PCP - General 09/19/05 documented as of this encounter
--- OUTSIDE RECORDS SUMMARY | 2024-11-19 16:05 | XMS_ITS | Encounter Summary ---
Author Organization [employer] Address [address] [place] [address] Care Team Providers Care Crew Mess Attendant Name Role Phone Charlie Mera MD Primary Care Provider Mary tapia Encounter Details Date Type Department Care Team (Latest Contact Info) Description 07/31/2005 Outpatient Historical HIS PATIENT IN A BED Pratik Asencio, DO [address] [facility] [address] [address] PREG COMPL NEC-ANTEPART (Primary Dx) Social History Tobacco Use Types Packs/Day Years Used Date Smoking Tobacco: Never Assessed Comments Unknown Sex and Gender Information Value Date Recorded Sex Assigned at Not on file Legal Sex Female 4:21 AM BALL RACKER Gender Identity Not on file Sexual Orientation Not on file documented as of this encounter Plan of Treatment Not on file documented as of this encounter Visit Diagnoses Diagnosis Other specified complication, antepartum(646.83)- Primary Other specified complication, antepartum documented in this encounter Care Teams Crew Mess Attendant Relationship Specialty Start Date End Date Charlie Mera MD NO ADDRESS ON FILE PCP - General 09/19/05 documented as of this encounter
--- OUTSIDE RECORDS SUMMARY | 2024-11-19 16:05 | XMS_ITS | Encounter Summary ---
Author Organization [employer] Address [address] [place] [address] Care Team Providers Care Headmaster/Mistress Name Role Phone Charlie Mera MD Primary Care Provider Unavailab le Encounter Details Date Type Department Care Team (Late st Contact Info) Description 09/03/2005 Outpatient Historical [facility] Pratik Asencio, [address] [address] [address] Social History Tobacco Use Types Packs/Day Years Used Date Smoking Tobacco: Never Assessed Comments Unknown Sex and Gender Information Value Date Recorded Sex Assigned at Not on file Legal Sex Female 4:21 AM IT NETWORK ARCHITECT Gender Identity Not on file Sexual Orientation Not on file documented as of this encounter Plan of Treatment Not on file documented as of this encounter Visit Diagnoses Not on filedocumented in this encounter Care Teams Headmaster/Mistress Relationship Specialty Start Date End Date Charlie Mera MD NO ADDRESS ON FILE PCP - General 09/19/05 documented as of this encounter
--- OUTSIDE RECORDS SUMMARY | 2024-11-19 16:05 | XMS_ITS | Encounter Summary ---
Author Organization [employer] Address [address] [place] [address] Care Team Providers Care Traffic Operator Name Role Phone Charlie Mera MD Primary Care Provider Mary tapia Encounter Details Date Type Department Care Team (Late st Contact Info) Description 12/14/2005 [facility] Follow-Up Examination, Following Other Surgery (Primary Dx) Social History Tobacco Use Types Packs/Day Years Used Date Smoking Tobacco: Never Assessed Comments Unknown Sex and Gender Information Value Date Recorded Sex Assigned at Not on file Legal Sex Female 4:21 AM AIRPORT REFUELING HANDLER Gender Identity Not on file Sexual Orientation Not on file documented as of this encounter Plan of Treatment Not on file documented as of this encounter Visit Diagnoses Diagnosis Follow-up examination, following other surgery- Primary documented in this encounter Care Teams Traffic Operator Relationship Specialty Start Date End Date Charlie Mera MD NO ADDRESS ON FILE PCP - General 09/19/05 documented as of this encounter
--- OUTSIDE RECORDS SUMMARY | 2024-11-19 16:05 | XMS_ITS | Encounter Summary ---
Author Organization [employer] Address [address] [place] [address] Care Team Providers Care Tax Compliance Agent Name Role Phone Charlie Mera MD Primary Care Provider Mary tapia Encounter Details Date Type Department Care Team (Late st Contact Info) Description 09/19/2005 Outpatient Historical [facility] EMERGENCY [facility] Magali Sanders MD NO ADDRESS ON FILE Er, Authorized P NO ADDRESS ON FILE GASTROINTEST HEMORR NOS (Primary Dx) Social History Tobacco Use Types Packs/Day Years Used Date Smoking Tobacco: Never Assessed Comments Unknown Sex and Gender Information Value Date Recorded Sex Assigned at Not on file Legal Sex Female 4:21 AM CREDIT FRONT OFFICE DEVELOPER Gender Identity Not on file Sexual Orientation Not on file documented as of this encounter Plan of Treatment Not on file documented as of this encounter Procedures Procedure Name Priority Date/Time Associated Diagnosis Comments CBC WITH DIFFERENTIAL Routine 09/19/2005 5:12 PM CREDIT FRONT OFFICE DEVELOPER CBC WITH DIFFERENTIAL Routine 09/19/2005 5:12 PM CREDIT FRONT OFFICE DEVELOPER documented in this encounter Results * (ABNORMAL) CBC WITH DIFFERENTIAL (09/19/2005 5:12 PM CREDIT FRONT OFFICE DEVELOPER) NEUTROPHILS 72(H) 45 - 70 % INTERFAC E SYSTEM LYMPHOCYTES 18 16 - 45 % INTERFAC E SYSTEM MONOCYTES 7 3 - 13 % INTERFACE SYSTEM EOSINOPHILS 3 0 - 7 % INTERFAC E SYSTEM BASOPHILS 0 0 - 2 % INTERFACE SYSTEM NEUTROPHIL ABSOLUTE 6.46 1.90 - 7.00 K/uL INTERFACE SYSTEM LYMPHOCYTE ABSOLUTE 1.60 0.70 - 4.50 K/uL INTERFACE SYSTEM MONOCYTE ABSOLUTE 0.64 0.10 - 1.30 K/uL INTERFACE SYSTEM EOSINOPHIL ABSOLUTE 0.27 0.00 - 0.70 K/uL INTERFACE SYSTEM BASOPHILS ABSOLUTE 0.01 0.00 - 0.20 K/uL INTERFACE SYSTEM 09/19/2005 5:12 PM CREDIT FRONT OFFICE DEVELOPER Magali Sanders MD HEMATOLOGY ORDERABLES Final Re sult Performing Organization Address [facility] Phone Number INTERFACE SYSTEM Refer to clinic/hospital department * CBC WITH DIFFERENTIAL (09/19/2005 5:12 PM CREDIT FRONT OFFICE DEVELOPER) WBC 9.0 4.0 - 9.8 K/uL INTERFACE SYSTEM RBC 4.54 3.90 - 4.90 M/uL INTERFACE SYSTEM HEMOGLOBIN 12.8 11.8 - 14.8 g/dL INTERFACE SYSTEM HEMATOCRIT 38.4 35.5 - 44.0 % INTERFACE SYSTEM MCV 84.6 82.0 - 99.0 fL INTERFACE SYSTEM MCH 28.2 27.2 - 32.6 pg INTERFACE SYSTEM MCHC 33.3 31.5 - 35.5 % INTERFACE SYSTEM RDW 12.6 11.5 - 14.5 % INTERFACE SYSTEM RDW-STDEV 38.8 37.1 - 48.7 fL INTERFACE SYSTEM PLATELETS 185 140 - 350 K/uL INTERFACE SYSTEM MPV 11.0 9.3 - 12.4 fL INTERFACE SYSTEM 09/19/2005 5:12 PM CREDIT FRONT OFFICE DEVELOPER Magali Sanders MD HEMATOLOGY ORDERABLES Final Re sult Performing Organization Address [facility] Phone Number INTERFACE SYSTEM Refer to clinic/hospital department documented in this encounter Visit Diagnoses Diagnosis Hemorrhage of gastrointestinal tract, unspecified- Primary documented in this encounter Care Teams Tax Compliance Agent Relationship Specialty Start Date End Date Charlie Mera MD NO ADDRESS ON FILE PCP - General 09/19/05 documented as of this encounter
--- OUTSIDE RECORDS SUMMARY | 2024-11-19 16:05 | XMS_ITS | Encounter Summary ---
Author Organization [employer] Address [address] [place] [address] Care Team Providers Care Medical Physics Professor Name Role Phone Charlie Mera MD Primary Care Provider Mary tapia Encounter Details Date Type Department Care Team (Latest Contact Info) Description 08/06/2005 Outpatient Historical HIS PATIENT IN A BED Jackson Theodore MD [address] [place] [address] Pratik Asencio DO [address] [place], [place] [phone] OTHER CURR COND-ANTEPARTUM (Primary Dx) Social History Tobacco Use Types Packs/Day Years Used Date Smoking Tobacco: Never Assessed Comments Unknown Sex and Gender Information Value Date Recorded Sex Assigned at Not on file Legal Sex Female 4:21 AM TRANSMISSION TECHNICIAN Gender Identity Not on file Sexual Orientation Not on file documented as of this encounter Plan of Treatment Not on file documented as of this encounter Procedures Procedure Name Priority Date/Time Associated Diagnosis Comments DIC PROFILE Routine 08/07/2005 2:54 AM TRANSMISSION TECHNICIAN CBC WITH DIFFERENTIAL Routine 08/07/2005 2:54 AM TRANSMISSION TECHNICIAN CBC WITH DIFFERENTIAL Routine 08/07/2005 2:54 AM TRANSMISSION TECHNICIAN URIC ACID Routine 08/07/2005 2:54 AM TRANSMISSION TECHNICIAN AST Routine 08/07/2005 2:54 AM TRANSMISSION TECHNICIAN LACTATE DEHYDROGENASE Routine 08/07/2005 2:54 AM TRANSMISSION TECHNICIAN documented in this encounter Results * (ABNORMAL) CBC WITH DIFFERENTIAL (08/07/2005 2:54 AM TRANSMISSION TECHNICIAN) NEUTROPHILS 76(H) 45 - 70 % INTERFAC E SYSTEM LYMPHOCYTES 16 16 - 45 % INTERFAC E SYSTEM MONOCYTES 7 3 - 13 % INTERFACE SYSTEM EOSINOPHILS 1 0 - 7 % INTERFAC E SYSTEM BASOPHILS 0 0 - 2 % INTERFACE SYSTEM NEUTROPHIL ABSOLUTE 8.47(H) 1.90 - 7.00 K/uL INTERFACE SYSTEM LYMPHOCYTE ABSOLUTE 1.83 0.70 - 4.50 K/uL INTERFACE SYSTEM MONOCYTE ABSOLUTE 0.75 0.10 - 1.30 K/uL INTERFACE SYSTEM EOSINOPHIL ABSOLUTE 0.07 0.00 - 0.70 K/uL INTERFACE SYSTEM BASOPHILS ABSOLUTE 0.01 0.00 - 0.20 K/uL INTERFACE SYSTEM 08/07/2005 2:54 AM TRANSMISSION TECHNICIAN Pratik Asencio DO HEMATOLOGY ORDERABLES Final Re sult Performing Organization Address [facility] Co de Phone Number INTERFACE SYSTEM Refer to clinic/hospital department * (ABNORMAL) CBC WITH DIFFERENTIAL (08/07/2005 2:54 AM TRANSMISSION TECHNICIAN) WBC 11.1(H) 4.0 - 9.8 K/uL INTERFACE SYSTEM RBC 3.91 3.90 - 4.90 M/uL INTERFACE SYSTEM HEMOGLOBIN 11.5(L) 11.8 - 14.8 g/dL INTERFACE SYSTEM HEMATOCRIT 33.3(L) 35.5 - 44.0 % INTERFACE SYSTEM MCV 85.2 82.0 - 99.0 fL INTERFACE SYSTEM MCH 29.4 27.2 - 32.6 pg INTERFACE SYSTEM MCHC 34.5 31.5 - 35.5 % INTERFACE SYSTEM RDW 13.3 11.5 - 14.5 % INTERFACE SYSTEM RDW-STDEV 41.4 37.1 - 48.7 fL INTERFACE SYSTEM PLATELETS 153 140 - 350 K/uL INTERFACE SYSTEM MPV 10.9 9.3 - 12.4 fL INTERFACE SYSTEM 08/07/2005 2:54 AM TRANSMISSION TECHNICIAN Pratik Asencio DO HEMATOLOGY ORDERABLES Final Re sult INTERFACE SYSTEM Refer to clinic/hospital department * AST (08/07/2005 2:54 AM TRANSMISSION TECHNICIAN) AST 19 12 - 32 U/L INTERFAC E SYSTEM 08/07/2005 2:54 AM TRANSMISSION TECHNICIAN us Pratik Asencio DO CHEMISTRY ORDERABLES Final Res ult Performing Organization Address City/[facility] Co de Phone Number INTERFACE SYSTEM Refer to clinic/hospital department * (ABNORMAL) DIC PROFILE (08/07/2005 2:54 AM TRANSMISSION TECHNICIAN) PROTIME 14.1 12.7 - 15.1 Seconds INTERFACE SYSTEM Comment: Note new reference range effective 05. INR therapeutic range is not affected. INR 1.0 0.9 - 1.1 INTERFACE SYSTEM Comment: INR Therapeutic Range: Adult: 2.0 - 3.0 for pulmonary embolism or prophylaxis against venous thrombosis or systemic embolization. 2.0 - 3.0 for patients with tissue heart valves. 2.5 - 3.5 for patients with mechanical heart valves or post [place]. Pediatric (12 years and under): 1.5 - 3.0 Although the target range in children is not well established , INR values of 1.5 - 3.0 are recommended for most patients. Higher values have been used in children with prosthetic cardiac valves and hereditary clotting disorders. (<3 days) therapeutic ranges have not been established. PTT 22.5(L) 24.4 - 36.4 Seconds INTERFACE SYSTEM Comment: PTT Therapeutic Range: Heparin Level PTT (seconds) <0.10 units/mL <53 0.10 - 0.30 units/mL 53 - 67 0.30 - 0.70 units/mL* 67 - 95* 0.70 - 1.00 units/mL 95 - 116 *corresponds to therapeutic range for unfractionated heparin Note changes in PTT reference and therapeutic ranges effective 07/24/2005 . Refer to updated heparin nomogram. Verified by repeat analysis. FIBRINOGEN 515(H) 161 - 476 mg/dL INTERFACE SYSTEM Comment:Note new reference r melina effective 07/24/2005. D-DIMER QUANT 1.16(H) <=0.42 ug/mL FEU INTERFACE SYSTEM Comment: DVT Screen reference range <0.45 ug/mL FEU D. Dimer Interpretation: The reference range is not clearly established in uncomplicated pregnanc ies. Values above the upper limit of the reference range are common from the 31st to 40th week of . High negative predictive values for DVT have been reported with the current methodology, as part of a comprehensive medical examination, including risk stratification. 08/07/2005 2:54 AM TRANSMISSION TECHNICIAN Pratik Asencio DO HEMATOLOGY ORDERABLES Final Re sult Performing Organization Address [facility] Phone Number INTERFACE SYSTEM Refer to clinic/hospital department * LACTATE DEHYDROGENASE (08/07/2005 2:54 AM TRANSMISSION TECHNICIAN) LD (LACTATE DEHYDROGENASE) 191 135 - 214 U/L INTERFACE SYSTEM 08/07/2005 2:54 AM TRANSMISSION TECHNICIAN Pratik Asencio DO CHEMISTRY ORDERABLES Final Res ult Performing Organization Address [facility] Phone Number INTERFACE SYSTEM Refer to clinic/hospital department * URIC ACID (08/07/2005 2:54 AM TRANSMISSION TECHNICIAN) URIC ACID 4.0 2.3 - 6.6 mg/dL INTERFACE SYSTEM 08/07/2005 2:54 AM TRANSMISSION TECHNICIAN Pratik Asencio DO CHEMISTRY ORDERABLES Final Res ult Performing Organization Address [facility] INTERFACE SYSTEM Refer to clinic/hospital department documented in this encounter Visit Diagnoses Diagnosis Other current maternal conditions classifiable elsewhere, antepartum- Primary documented in this encounter Care Teams Medical Physics Professor Relationship Specialty Start Date End Date Charlie Mera MD NO ADDRESS ON FILE PCP - General 09/19/05 documented as of this encounter
--- OUTSIDE RECORDS SUMMARY | 2024-11-19 16:05 | XMS_ITS | Encounter Summary ---
Author Organization [employer] Address [address] [place] [address] Care Team Providers Care Hosiery Pairer Name Role Phone Charlie Mera MD Primary Care Provider Mary tapia Encounter Details Date Type Department Care Team (Latest Contact Info) Description 08/13/2005 Outpatient Historical [facility], [facility] Conversion, History LABORATORY EXAMINATION (Primary Dx) Social History Tobacco Use Types Packs/Day Years Used Date Smoking Tobacco: Never Assessed Comments Unknown Sex and Gender Information Value Date Recorded Sex Assigned at Not on file Legal Sex Female 4:21 AM UPPER CUTTER Gender Identity Not on file Sexual Orientation Not on file documented as of this encounter Plan of Treatment Not on file documented as of this encounter Procedures Procedure Name Priority Date/Time Associated Diagnosis Comments CREATININE CLEARANCE, SERUM Routine 08/13/2005 9:52 PM UPPER CUTTER CREATININE, 24 HR URINE Routine 08/13/2005 9:52 PM UPPER CUTTER documented in this encounter Results * CREATININE CLEARANCE, SERUM (08/13/2005 9:52 PM UPPER CUTTER) CREATININE 0.7 0.4 - 1.2 mg/dL INTERFACE SYSTEM 08/13/2005 9:52 PM UPPER CUTTER us History Conversion CHEMISTRY ORDERABLES Final Re sult INTERFACE SYSTEM Refer to clinic/hospital department * CREATININE, 24 HR URINE (08/13/2005 9:52 PM UPPER CUTTER) START DATE 24 HR UR [id number] :[id number] :0:0 INTERFACE SYSTEM START TIME 24 HR UR 2030 time INTERFACE SYSTEM LENGTH OF COLLECTION 24 23 - 25 hr INTERFACE SYSTEM VOLUME, 24 HR URINE 2100 mL INTERFACE SYSTEM CREATININE, 24 HR URINE 1.4 0.6 - 1.8 g/24 hrs INTERFACE SYSTEM 08/13/2005 9:52 PM UPPER CUTTER us History Conversion URINE ORDERABLES Final Result Performing Organization Address City/State/[facility] Co de Phone Number INTERFACE SYSTEM Refer to clinic/hospital department documented in this encounter Visit Diagnoses Diagnosis Laboratory examination- Primary documented in this encounter Care Teams Hosiery Pairer Relationship Specialty Start Date End Date Charlie Mera MD NO ADDRESS ON FILE PCP - General 09/19/05 documented as of this encounter
--- OUTSIDE RECORDS SUMMARY | 2024-11-19 16:05 | XMS_ITS | Encounter Summary ---
Author Organization [employer] Address [address] [place] [address] Care Team Providers Care Hadoop Administrator Name Role Phone Charlie Mera MD Primary Care Provider Unavailab le Encounter Details Date Type Department Care Team (Late st Contact Info) Description 08/16/2005 Outpatient Historical [facility] Support [facility]. ([facility]) [address] 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
--- OUTSIDE RECORDS SUMMARY | 2024-11-19 16:05 | XMS_ITS | Encounter Summary ---
Author Organization [employer] Address [address] [place] [address] Care Team Providers Care Special Machine Stitcher Name Role Phone Charlie Mera MD Primary Care Provider Mary tapia Encounter Details Date Type Department Care Team (Latest Contact Info) Description 08/02/2005 Outpatient Historical [facility] Pratik Asencio, [address] [facility] [address] [address] RENAL DIS NOS-ANTEPARTUM (Primary Dx) Social History Tobacco Use Types Packs/Day Years Used Date Smoking Tobacco: Never Assessed Comments Unknown Sex and Gender Information Value Date Recorded Sex Assigned at Not on file Legal Sex Female 4:21 AM GUARDIAN FAMILY MEMBER Gender Identity Not on file Sexual Orientation Not on file documented as of this encounter Plan of Treatment Not on file documented as of this encounter Visit Diagnoses Diagnosis 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
--- OUTSIDE RECORDS SUMMARY | 2024-11-19 16:05 | XMS_ITS | Encounter Summary ---
Author Organization [employer] Address [address] [place] [address] Care Team Providers Care It Technical Support Specialist Name Role Phone Charlie Mera MD Primary Care Provider Mary tapia Encounter Details Date Type Department Care Team (Latest Contact Info) Description 07/30/2005 Outpatient Historical HIS PATIENT IN A BED Jackson Theodore MD [address] [place] [address] Pratik Asencio DO [address] [place], [place] [phone] PREG COMPL NEC-ANTEPART (Primary Dx) Social History Tobacco Use Types Packs/Day Years Used Date Smoking Tobacco: Never Assessed Comments Unknown Sex and Gender Information Value Date Recorded Sex Assigned at Not on file Legal Sex Female 4:21 AM FARM OPERATOR Gender Identity Not on file Sexual Orientation Not on file documented as of this encounter Plan of Treatment Not on file documented as of this encounter Procedures Procedure Name Priority Date/Time Associated Diagnosis Comments CBC WITH DIFFERENTIAL Routine 07/30/2005 1:50 PM FARM OPERATOR CBC WITH DIFFERENTIAL Routine 07/30/2005 1:50 PM FARM OPERATOR URIC ACID Routine 07/30/2005 1:50 PM FARM OPERATOR AST Routine 07/30/2005 1:50 PM FARM OPERATOR LACTATE DEHYDROGENASE Routine 07/30/2005 1:50 PM FARM OPERATOR URINALYSIS WITH REFLEX CULTURE Routine 07/30/2005 1:45 PM FARM OPERATOR URINALYSIS W/REFLEX MICROSCOPIC Routine 07/30/2005 1:45 PM FARM OPERATOR documented in this encounter Results * (ABNORMAL) CBC WITH DIFFERENTIAL (07/30/2005 1:50 PM FARM OPERATOR) NEUTROPHILS 81(H) 45 - 70 % INTERFAC E SYSTEM LYMPHOCYTES 12(L) 16 - 45 % INTERFAC E SYSTEM MONOCYTES 7 3 - 13 % INTERFACE SYSTEM EOSINOPHILS 1 0 - 7 % INTERFAC E SYSTEM BASOPHILS 0 0 - 2 % INTERFACE SYSTEM NEUTROPHIL ABSOLUTE 9.45(H) 1.90 - 7.00 K/uL INTERFACE SYSTEM LYMPHOCYTE ABSOLUTE 1.39 0.70 - 4.50 K/uL INTERFACE SYSTEM MONOCYTE ABSOLUTE 0.84 0.10 - 1.30 K/uL INTERFACE SYSTEM EOSINOPHIL ABSOLUTE 0.06 0.00 - 0.70 K/uL INTERFACE SYSTEM BASOPHILS ABSOLUTE 0.01 0.00 - 0.20 K/uL INTERFACE SYSTEM 07/30/2005 1:50 PM FARM OPERATOR us Pratik Asencio DO HEMATOLOGY ORDERABLES Final Re sult INTERFACE SYSTEM Refer to clinic/hospital department * (ABNORMAL) CBC WITH DIFFERENTIAL (07/30/2005 1:50 PM FARM OPERATOR) Pathologist [facility] WBC 11.8(H) 4.0 - 9.8 K/uL INTERFACE SYSTEM RBC 3.93 3.90 - 4.90 M/uL INTERFACE SYSTEM HEMOGLOBIN 11.3(L) 11.8 - 14.8 g/dL INTERFACE SYSTEM HEMATOCRIT 33.0(L) 35.5 - 44.0 % INTERFACE SYSTEM MCV 84.0 82.0 - 99.0 fL INTERFACE SYSTEM MCH 28.8 27.2 - 32.6 pg INTERFACE SYSTEM MCHC 34.2 31.5 - 35.5 % INTERFACE SYSTEM RDW 13.5 11.5 - 14.5 % INTERFACE SYSTEM RDW-STDEV 41.5 37.1 - 48.7 fL INTERFACE SYSTEM PLATELETS 172 140 - 350 K/uL INTERFACE SYSTEM Comment: Platelet clumps are present on smear review. Platelet count may be higher than indicated. WBC verified by smear review. MPV 11.7 9.3 - 12.4 fL INTERFACE SYSTEM 07/30/2005 1:50 PM FARM OPERATOR Pratik Asencio DO HEMATOLOGY ORDERABLES Final Re sult Performing Organization Address [facility] Phone Number INTERFACE SYSTEM Refer to clinic/hospital department * URIC ACID (07/30/2005 1:50 PM FARM OPERATOR) URIC ACID 3.9 2.3 - 6.6 mg/dL INTERFACE SYSTEM 07/30/2005 1:50 PM FARM OPERATOR Pratik Asencio DO CHEMISTRY ORDERABLES Final Res ult Performing Organization Address [facility] Phone Number INTERFACE SYSTEM Refer to clinic/hospital department * LACTATE DEHYDROGENASE (07/30/2005 1:50 PM FARM OPERATOR) LD (LACTATE DEHYDROGENASE) 162 135 - 214 U/L INTERFACE SYSTEM 07/30/2005 1:50 PM FARM OPERATOR Pratik Asencio DO CHEMISTRY ORDERABLES Final Res ult Performing Organization Address [facility] Phone Number INTERFACE SYSTEM Refer to clinic/hospital department * AST (07/30/2005 1:50 PM FARM OPERATOR) AST 20 12 - 32 U/L INTERFAC E SYSTEM 07/30/2005 1:50 PM FARM OPERATOR Pratik Asencio DO CHEMISTRY ORDERABLES Final Res ult Performing Organization Address [facility] Phone Number INTERFACE SYSTEM Refer to clinic/hospital department * (ABNORMAL) URINALYSIS (07/30/2005 1:45 PM FARM OPERATOR) COLOR UA Yellow INTERFACE SYSTEM CLARITY UA Slt. Cloudy(A) Clear INTERFACE SYSTEM SPECIFIC GRAVITY UA 1.005 [...] EPITHELIAL CELLS, URINE 2-5 /HPF INTERFACE SYSTEM 07/30/2005 1:45 PM FARM OPERATOR Pratik Asencio DO URINE ORDERABLES Final Result Performing Organization Address [facility] Phone Number INTERFACE SYSTEM Refer to clinic/hospital department * URINALYSIS WITH REFLEX CULTURE (07/30/2005 1:45 PM FARM OPERATOR) URINE CULTURE ORDER Culture ordered INTERFACE SYSTEM Comment: Criteria for a reflex culture include one or more of the following: Abn ormal nitrite, leukocyte esterase, WBCs or RBCs. Lack of qualifying criteria does not exclude the possiblity of a urinary tract infection. Dilute urine, drug interference, etc. may decrease the sensitivity of the criteria analytes. 07/30/2005 1:45 PM FARM OPERATOR Pratik Asencio DO URINE ORDERABLES Final Result Performing Organization Address [facility] Phone Number INTERFACE SYSTEM Refer to clinic/hospital department documented in this encounter Visit Diagnoses Diagnosis Other specified complication, antepartum(646.83)- Primary Other specified complication, antepartum documented in this encounter Care Teams It Technical Support Specialist Relationship Specialty Start Date End Date Charlie Mera MD NO ADDRESS ON FILE PCP - General 09/19/05 documented as of this encounter
--- OUTSIDE RECORDS SUMMARY | 2024-11-19 16:05 | XMS_ITS | Clinical Summary ---
Author Organization [facility] Address [address] [facility] Attn: Epic Prelude ADT [place] [address] Care Team Providers Care Game Preserve Manager Name Role Phone Charlie Mera MD Primary Care Provider Unavailab le Social History Tobacco Use Types Packs/Day Years Used Date Smoking Tobacco: Never Assessed Comments Unknown Sex and Gender Information Value Date Recorded Sex Assigned at Not on file Legal Sex Female 4:21 AM SHIP'S SURVEYOR Gender Identity Not on file Sexual Orientation Not on file Plan of Treatment Health Maintenance Due Date Last Done Comments DTAP/TDAP/TD VACCINES (1 - Tdap) 1989 HEPATITIS B VACCINES (1 of 3 - 19+ 3-dose series) 11/16 CERVICAL CANCER SCREENING 2000 BREAST CANCER SCREENING 2010 COLORECTAL SCREENING 12/14/2015 Colorectal Cancer Screening 12/14/2015 FIT-DNA Q 3 years 12/14/2015 FIT/FOBT Q 1 year 12/14/2015 Flex Sig/CT Colonography Q 5 years 12/14/2015 ZOSTER VACCINE (1 of 2) 2020 INFLUENZA VACCINE (#1) 2024 Care Teams Game Preserve Manager Relationship Specialty Start Date End Date Charlie Mera MD NO ADDRESS ON FILE PCP - General 09/19/05
--- OUTSIDE RECORDS SUMMARY | 2024-11-19 16:05 | XMS_ITS | Encounter Summary ---
Author Organization [employer] Address [address] [place] [address] Care Team Providers Care Franchise Consultant Name Role Phone Charlie Mera MD Primary Care Provider Mary tapia Encounter Details Date Type Department Care Team (Latest Contact Info) Description 11/12/2005 Outpatient Historical [facility] Bret Templeton MD NO ADDRESS ON FILE CALCULUS OF KIDNEY (Primary Dx) Social History Tobacco Use Types Packs/Day Years Used Date Smoking Tobacco: Never Assessed Comments Unknown Sex and Gender Information Value Date Recorded Sex Assigned at Not on file Legal Sex Female 4:21 AM OTOLOGIST Gender Identity Not on file Sexual Orientation Not on file documented as of this encounter Plan of Treatment Not on file documented as of this encounter Procedures Procedure Name Priority Date/Time Associated Diagnosis Comments HEMOGLOBIN AND HEMATOCRIT Routine 11/12/2005 7:45 AM OTOLOGIST POC , URINE Routine 11/12/2005 7:38 AM OTOLOGIST documented in this encounter Results * HEMOGLOBIN AND HEMATOCRIT (11/12/2005 7:45 AM OTOLOGIST) HEMOGLOBIN 13.2 11.8 - 14.8 g/dL INTERFACE SYSTEM HEMATOCRIT 39.0 35.5 - 44.0 % INTERFACE SYSTEM 11/12/2005 7:45 AM OTOLOGIST us Bret Templeton MD HEMATOLOGY ORDERABLES Gina l Result INTERFACE SYSTEM Refer to clinic/hospital department * POC , URINE (11/12/2005 7:38 AM OTOLOGIST) HCG QUAL URINE Negative Negative INTER FACE SYSTEM SPECIFIC GRAVITY UA 1.020 1.001 - 1.035 INTERFACE SYSTEM 11/12/2005 7:38 AM OTOLOGIST Bret Templeton MD POINT OF CARE TESTING Gina gaspar Result INTERFACE SYSTEM Refer to clinic/hospital department documented in this encounter Visit Diagnoses Diagnosis Calculus of kidney- Primary documented in this encounter Care Teams Franchise Consultant Relationship Specialty Start Date End Date Charlie Mera MD NO ADDRESS ON FILE PCP - General 09/19/05 documented as of this encounter
--- OUTSIDE RECORDS SUMMARY | 2024-11-19 16:05 | XMS_ITS | Encounter Summary ---
Author Organization [employer] Address [address] [place] [address] Care Team Providers Care Roll Examiner Name Role Phone Charlie Mera MD Primary Care Provider Mary tapia Encounter Details Date Type Department Care Team (Latest Contact Info) Description 07/24/2005 Outpatient Historical HIS PATIENT IN A BED AsencioPratik, DO [address] [facility] [address] [address] PREG COMPL NEC-ANTEPART (Primary Dx) Social History Tobacco Use Types Packs/Day Years Used Date Smoking Tobacco: Never Assessed Comments Unknown Sex and Gender Information Value Date Recorded Sex Assigned at Not on file Legal Sex Female 4:21 AM ELECTROPLATING LABORER Gender Identity Not on file Sexual Orientation Not on file documented as of this encounter Plan of Treatment Not on file documented as of this encounter Procedures Procedure Name Priority Date/Time Associated Diagnosis Comments URINALYSIS WITH REFLEX CULTURE Routine 07/25/2005 4:13 AM ELECTROPLATING LABORER URINALYSIS W/REFLEX MICROSCOPIC Routine 07/25/2005 4:13 AM ELECTROPLATING LABORER CBC WITH DIFFERENTIAL Routine 07/24/2005 11:57 PM ELECTROPLATING LABORER CBC WITH DIFFERENTIAL Routine 07/24/2005 11:57 PM ELECTROPLATING LABORER URIC ACID Routine 07/24/2005 11:57 PM ELECTROPLATING LABORER AST Routine 07/24/2005 11:57 PM ELECTROPLATING LABORER LACTATE DEHYDROGENASE Routine 07/24/2005 11:57 PM ELECTROPLATING LABORER documented in this encounter Results * (ABNORMAL) URINALYSIS (07/25/2005 4:13 AM ELECTROPLATING LABORER) COLOR UA Colorless INTERFACE SYSTEM CLARITY UA [...] 2 0 - 5 /HPF INTERFACE SYSTEM RBC UA 1 0 - 4 /HPF INTERFACE SYSTEM EPITHELIAL CELLS, URINE 2-5 /HPF INTERFACE SYSTEM 07/25/2005 4:13 AM ELECTROPLATING LABORER Pratik Asencio DO URINE ORDERABLES Final Result Performing Organization Address [facility] de Phone Number INTERFACE SYSTEM Refer to clinic/hospital department * URINALYSIS WITH REFLEX CULTURE (07/25/2005 4:13 AM ELECTROPLATING LABORER) Pathologist [facility] URINE CULTURE ORDER Culture ordered INTERFACE SYSTEM Comment: Criteria for a reflex culture include one or more of the following: Abn ormal nitrite, leukocyte esterase, WBCs or RBCs. Lack of qualifying criteria does not exclude the possiblity of a urinary tract infection. Dilute urine, drug interference, etc. may decrease the sensitivity of the criteria analytes. 07/25/2005 4:13 AM ELECTROPLATING LABORER Pratik Asencio DO URINE ORDERABLES Final Result Performing Organization Address [facility] Co de Phone Number INTERFACE SYSTEM Refer to clinic/hospital department * (ABNORMAL) CBC WITH DIFFERENTIAL (07/24/2005 11:57 PM ELECTROPLATING LABORER) NEUTROPHILS 74(H) 45 - 70 % INTERFAC E SYSTEM LYMPHOCYTES 16 16 - 45 % INTERFAC E SYSTEM MONOCYTES 9 3 - 13 % INTERFACE SYSTEM EOSINOPHILS 1 0 - 7 % INTERFAC E SYSTEM BASOPHILS 0 0 - 2 % INTERFACE SYSTEM NEUTROPHIL ABSOLUTE 7.47(H) 1.90 - 7.00 K/uL INTERFACE SYSTEM LYMPHOCYTE ABSOLUTE 1.63 0.70 - 4.50 K/uL INTERFACE SYSTEM MONOCYTE ABSOLUTE 0.92 0.10 - 1.30 K/uL INTERFACE SYSTEM EOSINOPHIL ABSOLUTE 0.09 0.00 - 0.70 K/uL INTERFACE SYSTEM BASOPHILS ABSOLUTE 0.01 0.00 - 0.20 K/uL INTERFACE SYSTEM 07/24/2005 11:5 7 PM ELECTROPLATING LABORER Pratik Asencio DO HEMATOLOGY ORDERABLES Final Re sult Performing Organization Address [facility] de Phone Number INTERFACE SYSTEM Refer to clinic/hospital department * (ABNORMAL) CBC WITH DIFFERENTIAL (07/24/2005 11:57 PM ELECTROPLATING LABORER) WBC 10.1(H) 4.0 - 9.8 K/uL INTERFACE SYSTEM RBC 3.82(L) 3.90 - 4.90 M/uL INTERFACE SYSTEM HEMOGLOBIN 11.0(L) 11.8 - 14.8 g/dL INTERFACE SYSTEM HEMATOCRIT 32.1(L) 35.5 - 44.0 % INTERFACE SYSTEM MCV 84.0 82.0 - 99.0 fL INTERFACE SYSTEM MCH 28.8 27.2 - 32.6 pg INTERFACE SYSTEM MCHC 34.3 31.5 - 35.5 % INTERFACE SYSTEM RDW 13.8 11.5 - 14.5 % INTERFACE SYSTEM RDW-STDEV 42.1 37.1 - 48.7 fL INTERFACE SYSTEM PLATELETS 178 140 - 350 K/uL INTERFACE SYSTEM MPV 11.0 9.3 - 12.4 fL INTERFACE SYSTEM 07/24/2005 11:5 7 PM ELECTROPLATING LABORER Pratik Asencio DO HEMATOLOGY ORDERABLES Final Re sult Performing Organization Address City/[facility]/ZIP Co de Phone Number INTERFACE SYSTEM Refer to clinic/hospital department * AST (07/24/2005 11:57 PM ELECTROPLATING LABORER) AST 24 12 - 32 U/L INTERFAC E SYSTEM 07/24/2005 11:5 7 PM ELECTROPLATING LABORER Pratik Asencio DO CHEMISTRY ORDERABLES Final Res ult Performing Organization Address [facility] Phone Number INTERFACE SYSTEM Refer to clinic/hospital department * LACTATE DEHYDROGENASE (07/24/2005 11:57 PM ELECTROPLATING LABORER) LD (LACTATE DEHYDROGENASE) 179 135 - 214 U/L INTERFACE SYSTEM 07/24/2005 11:5 7 PM ELECTROPLATING LABORER us Pratik Asencio DO CHEMISTRY ORDERABLES Final Res ult Performing Organization Address [facility] Phone Number INTERFACE SYSTEM Refer to clinic/hospital department * URIC ACID (07/24/2005 11:57 PM ELECTROPLATING LABORER) URIC ACID 3.4 2.3 - 6.6 mg/dL INTERFACE SYSTEM 07/24/2005 11:5 7 PM ELECTROPLATING LABORER us Pratik Asencio DO CHEMISTRY ORDERABLES Final Res ult Performing Organization Address [facility] Phone Number INTERFACE SYSTEM Refer to clinic/hospital department documented in this encounter Visit Diagnoses Diagnosis Other specified complication, antepartum(646.83)- Primary Other specified complication, antepartum documented in this encounter Care Teams Roll Examiner Relationship Specialty Start Date End Date Charlie Mera MD NO ADDRESS ON FILE PCP - General 09/19/05 documented as of this encounter
--- OUTSIDE RECORDS SUMMARY | 2024-11-19 16:05 | XMS_ITS | Encounter Summary ---
Author Organization [facility] Address [address] [place] [address] Care Team Providers Care Recovery Room Rn Name Role Phone Charlie Mera MD Primary Care Provider Unavailab le Encounter Details Date Type Department Care Team (Late st Contact Info) Description 07/20/2005 Outpatient Historical [facility] Maternal and Ground Floor [address] [place] [address] Gwendolyn Mcdonnell MD [address] [place] [address] Social History Tobacco Use Types Packs/Day Years Used Date Smoking Tobacco: Never Assessed Comments Unknown Sex and Gender Information Value Date Recorded Sex Assigned at Not on file Legal Sex Female 4:21 AM CLOTH FOLDER HAND Gender Identity Not on file Sexual Orientation Not on file documented as of this encounter Plan of Treatment Not on file documented as of this encounter Visit Diagnoses Not on filedocumented in this encounter Care Teams Recovery Room Rn Relationship Specialty Start Date End Date Charlie Mera MD NO ADDRESS ON FILE PCP - General 09/19/05 documented as of this encounter
--- OUTSIDE RECORDS SUMMARY | 2024-11-19 16:05 | XMS_ITS | Encounter Summary ---
Author Organization [facility] Address [address] [place] [address] Care Team Providers Care Holiday Detector Operator Name Role Phone Charlie Mera MD Primary Care Provider Unavailab le Encounter Details Date Type Department Care Team (Late st Contact Info) Description 07/24/2005 Outpatient Historical [facility] Maternal and Ground Floor [address] [place] [address] Pratik Asencio DO [address] [facility] [address] [place], [place] [id number] Social History Tobacco Use Types Packs/Day Years Used Date Smoking Tobacco: Never Assessed Comments Unknown Sex and Gender Information Value Date Recorded Sex Assigned at Not on file Legal Sex Female 4:21 AM PIER WORKER Gender Identity Not on file Sexual Orientation Not on file documented as of this encounter Plan of Treatment Not on file documented as of this encounter Visit Diagnoses Not on filedocumented in this encounter Care Teams Holiday Detector Operator Relationship Specialty Start Date End Date Charlie Mera MD NO ADDRESS ON FILE PCP - General 09/19/05 documented as of this encounter
--- OUTSIDE RECORDS SUMMARY | 2024-11-19 16:05 | XMS_ITS | Encounter Summary ---
Author Organization [employer] Address [address] [place] [address] Care Team Providers Care Cake Cutter Machine Name Role Phone Charlie Mera MD Primary Care Provider Mary tapia Encounter Details Date Type Department Care Team (Latest Contact Info) Description 08/12/2005 Outpatient Historical HIS PATIENT IN A BED Сергей Carbajal MD [address] [place] [address] Pratik Asencio DO [address] [facility] [address] [address] DECREASED MOVMT-ANTEPARTUM (Primary Dx) Social History Tobacco Use Types Packs/Day Years Used Date Smoking Tobacco: Never Assessed Comments Unknown Sex and Gender Information Value Date Recorded Sex Assigned at Not on file Legal Sex Female 4:21 AM COMMISSION AGENT LIVESTOCK Gender Identity Not on file Sexual Orientation Not on file documented as of this encounter Plan of Treatment Not on file documented as of this encounter Visit Diagnoses Diagnosis Decreased movements, affecting management of mother, antepartum- Primary documented in this encounter Care Teams Cake Cutter Machine Relationship Specialty Start Date End Date Charlie Mera MD NO ADDRESS ON FILE PCP - General 09/19/05 documented as of this encounter
--- OUTSIDE RECORDS SUMMARY | 2024-11-19 16:05 | XMS_ITS | Encounter Summary ---
Author Organization [employer] Address [address] [place] [address] Care Team Providers Care Dynamicist Name Role Phone Charlie Mera MD Primary Care Provider Mary tapia Encounter Details Date Type Department Care Team (Late st Contact Info) Description 01/01/2006 [facility] ADDRESS ON FILE Abdominal Pain, Other Specified Site (Primary Dx) Social History Tobacco Use Types Packs/Day Years Used Date Smoking Tobacco: Never Assessed Comments Unknown Sex and Gender Information Value Date Recorded Sex Assigned at Not on file Legal Sex Female 4:21 AM CUSTOMER RESOLUTION SPECIALIST Gender Identity Not on file Sexual Orientation Not on file documented as of this encounter Plan of Treatment Not on file documented as of this encounter Visit Diagnoses Diagnosis Abdominal pain, other specified site- Primary documented in this encounter Care Teams Dynamicist Relationship Specialty Start Date End Date Charlie Mera MD NO ADDRESS ON FILE PCP - General 09/19/05 documented as of this encounter
--- OUTSIDE RECORDS SUMMARY | 2024-11-19 16:05 | XMS_ITS | Encounter Summary ---
Author Organization [facility] Address [address] [place] [address] Care Team Providers Care Intensive Care Unit Nurse Name Role Phone Charlie Mera MD Primary Care Provider Unavailab le Encounter Details Date Type Department Care Team (Late st Contact Info) Description 07/17/2005 Outpatient Historical [facility] Maternal and Ground Floor [address] [place] [address] Pratik Asencio DO [address] [facility] [address] [place], [place] [phone] Social History Tobacco Use Types Packs/Day Years Used Date Smoking Tobacco: Never Assessed Comments Unknown Sex and Gender Information Value Date Recorded Sex Assigned at Not on file Legal Sex Female 4:21 AM RADAR TESTER Gender Identity Not on file Sexual Orientation Not on file documented as of this encounter Plan of Treatment Not on file documented as of this encounter Visit Diagnoses Not on filedocumented in this encounter Care Teams Intensive Care Unit Nurse Relationship Specialty Start Date End Date Charlie Mera MD NO ADDRESS ON FILE PCP - General 09/19/05 documented as of this encounter
--- OUTSIDE RECORDS SUMMARY | 2024-11-19 16:05 | XMS_ITS | Encounter Summary ---
Author Organization [email or web address] Address [address] [place] [address] Care Team Providers Care Audio Video Tech Name Role Phone Charlie Mera MD Primary Care Provider Unavailab le Encounter Details Date Type Department Care Team (Late st Contact Info) Description 07/27/2005 Outpatient Historical [facility] Maternal and Ground Floor S [place] [facility] [address] [place] [address] Сергей Carbajal MD [address] [place] [address] Social History Tobacco Use Types Packs/Day Years Used Date Smoking Tobacco: Never Assessed Comments Unknown Sex and Gender Information Value Date Recorded Sex Assigned at Not on file Legal Sex Female 4:21 AM MANAGER CHEMICAL Gender Identity Not on file Sexual Orientation Not on file documented as of this encounter Plan of Treatment Not on file documented as of this encounter Visit Diagnoses Not on filedocumented in this encounter Care Teams Audio Video Tech Relationship Specialty Start Date End Date Charlie Mera MD NO ADDRESS ON FILE PCP - General 09/19/05 documented as of this encounter
--- OUTSIDE RECORDS SUMMARY | 2024-11-19 16:05 | XMS_ITS | Encounter Summary ---
Author Organization [employer] Address [address] [place] [address] Care Team Providers Care Car Parker Name Role Phone Charlie Mera MD Primary Care Provider Unavailab le Encounter Details Date Type Department Care Team (Late st Contact Info) Description 07/31/2005 Outpatient Historical [facility] Maternal and Ground Floor [address] [place] [address] Pratik Asencio DO [address] [facility] [address] [place], [place] [id number] Social History Tobacco Use Types Packs/Day Years Used Date Smoking Tobacco: Never Assessed Comments Unknown Sex and Gender Information Value Date Recorded Sex Assigned at Not on file Legal Sex Female 4:21 AM PROJECT DIRECTOR Gender Identity Not on file Sexual Orientation Not on file documented as of this encounter Plan of Treatment Not on file documented as of this encounter Visit Diagnoses Not on filedocumented in this encounter Care Teams Car Parker Relationship Specialty Start Date End Date Charlie Mera MD NO ADDRESS ON FILE PCP - General 09/19/05 documented as of this encounter
== END 2024-11-19 14:42 | disposition home or self-care (01) ==
PROVIDERS: PCP Nurse Practitioner Family; Visit Provider Neurological Surgery
DX: Z01.812 Encounter for preprocedural laboratory examination (principal); M48.062 Spinal stenosis, lumbar region with neurogenic claudication
CPT/HCPCS: 36415; 80048; 81001; 85027; 85610; 85730; 86850; 86900; 86901

== ENCOUNTER 2024-12-29 15:04 | Inpatient (IN) | payer MEDICARE, SELFPAY ==
[2024-11-19 14:25] VITALS: BP 121/77; PULSE 88; RESP 16; TEMP 37; O2SAT 95; BMI 28.7
--- NOTE | 2024-11-19 14:46 | PC.NURSE ---
Addendum entered by David Troncoso RN 12/18/24 13:26: Patient says no changes since preop interview. Informed patient to arrive at 0730 on 12-29-2024 for surgery at 0930. Discussed much of instructions below. Encouraged to read over instruction sheet given her already. Addendum entered by Sangita Oro RN 11/19/24 14:54: PT aware to hold all NSAIDS, Motrin, Aspirin, Aleve, or any aspirin containing products for 7 days prior JRRN Original Note: Report to the Outpatient Waiting Room, entrance under the green pav[facility] at time __0800am on date ___12/01/24 ____. Planned Procedure Time: __1000am .? Time changes happen often and if your time is changed the preop area will call you the afternoon before. - You and your visitor will be asked to self-screen and do not enter if you have any COVID symptoms. Please call surgeon if you need to reschedule. - A mask is optional within the hospital at this time. Patients may have clear liquids (water, carbonated beverages, clear teas, apple juice) until 3 hours prior to surgery with a maximum of 20 ounces. - No food from midnight until time of surgery and no smoking, or chewing tobacco (or any form of nicotine). No chewing gum, candy or mints. (0700am) Take only the following medications with a SIP of water on the morning of surgery: ___Aripiprazole, Cyclobenziprine, Citalipram, Hydroxyzine, and Hydrocodone as needed DO NOT STOP ANY OF YOUR OTHER PRESCRIPTION MEDICATIONS PRIOR TO SURGERY EXCEPT THE FOLLOWING Hold all vitamins and supplements for 3 days per anesthesiologist.Date to take last dose____11/27/24 Please no make-up, nail taiwanese, hairspray, perfume, deodorant, or body powder the day of surgery.? No jewelry (including any body piercings) or valuables the day of surgery, leave them at home.? Please take a shower or bath the night before, or the morning of, surgery with an antibacterial soap.? Wear comfortable, loose fitting clothing.? - Jewelry must be removed prior to entering the operating room.? Rings and piercings that are not removed may be cut off. - The hospital will not accept responsibility for valuables.? - Please leave all valuables, including medications, at home the day of surgery. If you are going home after surgery, a licensed pick up driver must drive you home.? - NO public transportation without another adult if you receive anesthesia. - We recommend that an adult stay with you for 24 hours following discharge. - We also recommend that you do not drive, make important decision, drink alcoholic beverages, or take any drugs that were not prescribed by your health care provider for at least 24 hours after your discharge time. Follow any additional instructions given to you from your surgeon. Telephone instructions given to __patient and asked if any additional questions and then verbalized understanding. Patient advised to call surgeon office or pre surgery nurse liaison [phone] if any additional questions.
[2024-12-29] VITALS (14 sets, daily range): BP systolic 96–131; BP diastolic 63–88; PULSE 79–103; RESP 12–20; TEMP 36.1–36.9; O2SAT 94–100
--- NOTE | ~2024-12-29 | XR_ITS ---
EXAMINATION: XR fluoroscopy no charge DATE: 12/29/2024 13:01 INDICATION: Posterior lumbar interbody fusion TECHNIQUE: 3 fluoroscopic images of the lower lumbar spine were obtained during procedure performed mariia Lam. Radiologist was not present for the imaging or procedure. The amount of fluoroscopy t laura used during this procedure was 0.1 minutes. Total DAP was 0.833 Gycm^2. COMPARISON: 03/28/2024 FINDINGS: Again seen are postoperative change of an instrumented L4-S1 anterior spinal fusion with interbody carlos ne graft cages and anterior plate-screw fixation at both levels. Initial image redemonstrates unilate ral vertical jenna and pedicle screw fixation for posterior spinal fusion at L4-L5. This is removed on the subsequent image and there has been placement of a new anterior spinal fusion with interbody fusi on device and posterior spinal fusion with bilateral vertical jenna and pedicle screw fixation, both at L3-L4. IMPRESSION: 1. Fluoroscopy utilized during removal of prior right-sided vertical jenna and pedicle screw fixation a t L4-5 and placement of new instrumentation for anterior and posterior spinal fusion at L3-L4. See pr ocedure note for further detail. Reviewed, dictated and finalized at location A. IMPRESSION: 1. Fluoroscopy utilized during removal of prior right-sided vertical jenna and pe dicle screw fixation at L4-5 and placement of new instrumentation for anterior and posterior spinal fusion at L3-L4. See procedure note for further detail.
--- OUTSIDE RECORDS SUMMARY | 2024-12-29 01:00 | XMS_ITS | Encounter Summary ---
Author Organization [employer] Address [address] [place] [address] Care Team Providers Care Acute Care Physical Therapist Name Role Phone Charlie Mera MD Primary Care Provider Mary le Encounter Details Date Type Department Care Team (Late st Contact Info) Description 12/07/2004 Outpatient Historical [facility]b Blanco MD [address] [facility] [address] [address] [place] [address] ROUT POSTPART FOLLOW-UP (Primary Dx) Social History Tobacco Use Types Packs/Day Years Used Date Smoking Tobacco: Never Assessed Comments Unknown Sex and Gender Information Value Date Recorded Sex Assigned at Not on file Legal Sex Female 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
--- OUTSIDE RECORDS SUMMARY | 2024-12-29 01:00 | XMS_ITS | Encounter Summary ---
Author Organization [employer] [facility] Address [address] [place] [address] Care Team Providers Care Salesperson Sheet Music Name Role Phone Charlie Mera MD Primary Care Provider Mary le Encounter Details Date Type Department Care Team (Late st Contact Info) Description 08/24/2004 Outpatient Historical HIS [facility] Teodora Molina [address] [place] [address] PREG STATE, INCIDENTAL (Primary Dx) Social History Tobacco Use Types Packs/Day Years Used Date Smoking Tobacco: Never Assessed Comments Unknown Sex and Gender Information Value Date Recorded Sex Assigned at Not on file Legal Sex Female 4:21 AM SPECIAL EVENT ASSISTANT Gender Identity Not on file Sexual Orientation Not on file documented as of this encounter Plan of Treatment Not on file documented as of this encounter Visit Diagnoses Diagnosis state, incidental- Primary documented in this encounter Care Teams Salesperson Sheet Music Relationship Specialty Start Date End Date Charlie Mera MD NO ADDRESS ON FILE PCP - General 09/19/05 documented as of this encounter
--- OUTSIDE RECORDS SUMMARY | 2024-12-29 01:00 | XMS_ITS | Encounter Summary ---
Author Organization [employer] Address 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 Gender Identity Not on file Sexual [...] O RDERABLES Final Result Performing Organization Address [facility] de Phone Number INTERFACE SYSTEM Refer to [...] OGY ORDERABLES Final Result Performing Organization Address [facility] de Phone Number INTERFACE SYSTEM Refer to [...] Primary documented in this encounter Care Teams Hydraulic Miner Blasting Relationship Specialty Start Date End Date Charlie Mera MD NO ADDRESS ON FILE PCP - General 09/19/05 documented as of this encounter
--- OUTSIDE RECORDS SUMMARY | 2024-12-29 01:00 | XMS_ITS | Encounter Summary ---
Author Organization [facility] Address [address] [place] [address] Phone Care Team Providers Care Front Desk Manager Name Role Phone Ute Betancourt MD Primary Care Provider [phone] Reason for Visit * Reason Onset Date Comments Med Refill 07/09/2022 Encounter Details Date Type Department Care Team ([facility] Contact Info) Description 07/09/2022 Refill [facility] [address] [address] Daniel Chun MD [facility] [id number] Social History Tobacco Use Types Packs/Day Years Used Date Smoking Tobacco: Former Cigarettes Smokeless Tobacco: Never Comments Unknown Sex and Gender Information Value Date Recorded Sex Assigned at Not on file Legal Sex Female 3:11 PM MST Gender Identity Not on file Sexual Orientation Not on file documented as of this encounter Miscellaneous Notes * Telephone Encounter - Sangita Emerson MA - 07/09/2022 12:49 PM CDT Called into the pharmacy today documented in this encounter Plan of Treatment Upcoming Encounters Date Type Department Care Team ([facility] Contact Info) Description 11/10/2025 4:40 PM GEOMETRY TUTOR Office Visit [facility] [address] [place] [address] Daniel Chun MD [address] [facility] [address] [place] [address] documented as of this encounter Visit Diagnoses Not on filedocumented in this encounter Care Teams Front Desk Manager Relationship Specialty Start Date End Date Ute Betancourt MD [address] [place] [address] PCP - General 07/18/20 documented as of this encounter
--- OUTSIDE RECORDS SUMMARY | 2024-12-29 01:00 | XMS_ITS | Encounter Summary ---
Author Organization [facility] Address [address] [place] [address] Care Team Providers Care Vice President [employer] Name Role Phone Charlie Mera MD Primary Care Provider Unavail le Encounter Details Date Type Department Care Team (Late st Contact Info) Description 12/19/2004 Outpatient Historical [facility] [address] [place] [address] Yong Rahman MD [address] [place] [address] Social History Tobacco Use Types Packs/Day Years Used Date Smoking Tobacco: Never Assessed Comments Unknown Sex and Gender Information Value Date Recorded Sex Assigned at Not on file Legal Sex Female 4:21 AM HAIRCUTTER Gender Identity Not on file Sexual Orientation Not on file documented as of this encounter Plan of Treatment Not on file documented as of this encounter Visit Diagnoses Not on filedocumented in this encounter Care Teams Vice President [employer] Relationship Specialty Start Date End Date Charlie Mera MD NO ADDRESS ON FILE PCP - General 09/19/05 documented as of this encounter
--- OUTSIDE RECORDS SUMMARY | 2024-12-29 01:00 | XMS_ITS | Encounter Summary ---
Author Organization [facility] Address [address] [place] [address] Care Team Providers Care Director Design Name Role Phone Charlie Mera MD Primary Care Provider Unavailab le Encounter Details Date Type Department Care Team (Late st Contact Info) Description 06/12/2005 Outpatient Historical [facility] Maternal and Ground Floor [address] [place] [address] Pratik Asencio DO [address] [facility] [address]- [place], [place] [id number] Social History Tobacco Use Types Packs/Day Years Used Date Smoking Tobacco: Never Assessed Comments Unknown Sex and Gender Information Value Date Recorded Sex Assigned at Not on file Legal Sex Female 4: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
--- OUTSIDE RECORDS SUMMARY | 2024-12-29 01:00 | XMS_ITS | Encounter Summary ---
Author Organization [facility] Address [address] [place] [address] Care Team Providers Care Manager Coding Name Role Phone Charlie Mera MD Primary Care Provider Unavailab le Encounter Details Date Type Department Care Team (Late st Contact Info) Description 08/17/2004 Outpatient Historical [facility] Maternal and Ground Floor [address] [place] [address] Gwendolyn Mcdonnell MD [address] [place] [address] Social History Tobacco Use Types Packs/Day Years Used Date Smoking Tobacco: Never Assessed Comments Unknown Sex and Gender Information Value Date Recorded Sex Assigned at Not on file Legal Sex Female 4:21 AM SHIRT IRONER Gender Identity Not on file Sexual Orientation Not on file documented as of this encounter Plan of Treatment Not on file documented as of this encounter Visit Diagnoses Not on filedocumented in this encounter Care Teams Manager Coding Relationship Specialty Start Date End Date Charlie Mera MD NO ADDRESS ON FILE PCP - General 09/19/05 documented as of this encounter
--- OUTSIDE RECORDS SUMMARY | 2024-12-29 01:00 | XMS_ITS | Encounter Summary ---
Author Organization [facility] Address [address] [place] [address] Care Team Providers Care Second Rigger Name Role Phone Charlie Mera MD Primary Care Provider Unavail le Encounter Details Date Type Department Care Team (Late st Contact Info) Description 11/28/2004 Outpatient Historical [facility] [address] [place] [address] Yong Rahman MD [address] [place] [address] Social History Tobacco Use Types Packs/Day Years Used Date Smoking Tobacco: Never Assessed Comments Unknown Sex and Gender Information Value Date Recorded Sex Assigned at Not on file Legal Sex Female 4:21 AM [employer] Gender Identity Not on file Sexual Orientation Not on file documented as of this encounter Plan of Treatment Not on file documented as of this encounter Visit Diagnoses Not on filedocumented in this encounter Care Teams Second Rigger Relationship Specialty Start Date End Date Charlie Mera MD NO ADDRESS ON FILE PCP - General 09/19/05 documented as of this encounter
--- OUTSIDE RECORDS SUMMARY | 2024-12-29 01:00 | XMS_ITS | Encounter Summary ---
Author Organization [employer] Address [address] [place] [address] Care Team Providers Care Purse Seiner Name Role Phone Charlie Mera MD Primary Care Provider Unavailab le Encounter Details Date Type Department Care Team (Late st Contact Info) Description 08/14/2004 Outpatient Historical [facility] Maternal and Ground Floor [address] [place] [address] Сергей Carbajal MD [address] [place] [address] Social History Tobacco Use Types Packs/Day Years Used Date Smoking Tobacco: Never Assessed Comments Unknown Sex and Gender Information Value Date Recorded Sex Assigned at Not on file Legal Sex Female 4:21 AM CLINICAL LIAISON Gender Identity Not on file Sexual Orientation Not on file documented as of this encounter Plan of Treatment Not on file documented as of this encounter Visit Diagnoses Not on filedocumented in this encounter Care Teams Purse Seiner Relationship Specialty Start Date End Date Charlie Mera MD NO ADDRESS ON FILE PCP - General 09/19/05 documented as of this encounter
--- OUTSIDE RECORDS SUMMARY | 2024-12-29 01:00 | XMS_ITS | Encounter Summary ---
Author Organization [employer] Address [address] [place] [address] Care Team Providers Care Watch And Clock Maker And Repairer Name Role Phone Charlie Mera MD Primary Care Provider Mary tapia Encounter Details Date Type Department Care Team (Latest Contact Info) Description 05/11/2005 Outpatient Historical [facility] Gwendolyn Mcdonnell MD [address] [place] [address] Pratik Asencio DO [address] [facility] [address] [place] [address] THRT BRIA LABOR-ANTEPART (Primary Dx) Social History Tobacco Use Types Packs/Day Years Used Date Smoking Tobacco: Never Assessed Comments Unknown Sex and Gender Information Value Date Recorded Sex Assigned at Not on file Legal Sex Female 4: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 Gender Identity Not on file [...] ORDERABLES Final Re sult Performing Organization Address [facility] de Phone Number INTERFACE SYSTEM Refer to clinic/hospital department * (ABNORMAL) CBC WITH DIFFERENTIAL (05/11/2005 5:23 PM CDT) [facility] WBC 10.0(H) 4.0 - 9.8 K/uL INTERFACE [...] ORDERABLES Final Re sult Performing Organization Address [facility] Co de Phone Number INTERFACE SYSTEM [...] URINE ORDERABLES Final Result Performing Organization Address [facility] Phone Number INTERFACE SYSTEM Refer [...] URINE ORDERABLES Final Result Performing Organization Address [facility] Phone Number INTERFACE SYSTEM Refer to clinic/hospital department documented in this encounter Visit Diagnoses Diagnosis Threatened premature labor, antepartum(644.03)- Primary Threatened premature labor, antepartum documented in this encounter Care Teams Watch And Clock Maker And Repairer Relationship Specialty Start Date End Date Charlie Mera MD NO ADDRESS ON FILE PCP - General 09/19/05 documented as of this encounter
--- OUTSIDE RECORDS SUMMARY | 2024-12-29 01:00 | XMS_ITS | Encounter Summary ---
Author Organization [facility] Address [address] [place] [address] Care Team Providers Care Track Equipment Operator Name Role Phone Charlie Mera MD Primary Care Provider Unavailab le Encounter Details Date Type Department Care Team (Late st Contact Info) Description 05/22/2005 Outpatient Historical [facility] Maternal and Ground Floor [address] [place] [address] Pratik Asencio DO [address] [facility] [address] [place], [place] [id number] Social History Tobacco Use Types Packs/Day Years Used Date Smoking Tobacco: Never Assessed Comments Unknown Sex and Gender Information Value Date Recorded Sex Assigned at Not on file Legal Sex Female 4:21 AM OIL AND 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
--- OUTSIDE RECORDS SUMMARY | 2024-12-29 01:00 | XMS_ITS | Encounter Summary ---
Author Organization [facility] Address [address] [place] [address] Care Team Providers Care Impregnator Carbon Products Name Role Phone Charlie Mera MD Primary Care Provider Unavailab le Encounter Details Date Type Department Care Team (Late st Contact Info) Description 05/15/2005 Outpatient Historical [facility] Maternal and Ground Floor [address] [place] [address] Pratik Asencio DO [address] [facility] [address] [place], [place] [id number] Social History Tobacco Use Types Packs/Day Years Used Date Smoking Tobacco: Never Assessed Comments Unknown Sex and Gender Information Value Date Recorded Sex Assigned at Not on file Legal Sex Female 4:21 AM COUNTY AGENT Gender Identity Not on file Sexual Orientation Not on file documented as of this encounter Plan of Treatment Not on file documented as of this encounter Visit Diagnoses Not on filedocumented in this encounter Care Teams Impregnator Carbon Products Relationship Specialty Start Date End Date Charlie Mera MD NO ADDRESS ON FILE PCP - General 09/19/05 documented as of this encounter
--- OUTSIDE RECORDS SUMMARY | 2024-12-29 01:00 | XMS_ITS | Encounter Summary ---
Author Organization [employer] Address [address] [place] [address] Care Team Providers Care Toys Inspector Name Role Phone Charlie Mera MD Primary Care Provider Mary le Encounter Details Date Type Department Care Team (Late st Contact Info) Description 08/31/2004 Outpatient Historical [facility] Jb Blanco MD [address] [facility] [address] [address] [place] [address] SUPERVIS OTHER NORMAL PREG (Primary Dx) Social History Tobacco Use Types Packs/Day Years Used Date Smoking Tobacco: Never Assessed Comments Unknown Sex and Gender Information Value Date Recorded Sex Assigned at Not on file Legal Sex Female 4:21 AM ENGLISH LANGUAGE LEARNER TUTOR Gender Identity Not on file Sexual Orientation Not on file documented as of this encounter Plan of Treatment Not on file documented as of this encounter Visit Diagnoses Diagnosis Supervision of other normal - Primary documented in this encounter Care Teams Toys Inspector Relationship Specialty Start Date End Date Charlie Mera MD NO ADDRESS ON FILE PCP - General 09/19/05 documented as of this encounter
--- OUTSIDE RECORDS SUMMARY | 2024-12-29 01:00 | XMS_ITS | Encounter Summary ---
Author Organization [facility] Address [address] [place] [address] Care Team Providers Care Compass Operator Name Role Phone Charlie Mera MD Primary Care Provider Unavailab le Encounter Details Date Type Department Care Team (Late st Contact Info) Description 11/06/2004 Outpatient Historical [facility] [address] [place] [address] Burak Ortiz MD NO ADDRESS ON FILE Social History Tobacco Use Types Packs/Day Years Used Date Smoking Tobacco: Never Assessed Comments Unknown Sex and Gender Information Value Date Recorded Sex Assigned at Not on file Legal Sex Female 4:21 AM WHEEL BRAIDER Gender Identity Not on file Sexual Orientation Not on file documented as of this encounter Plan of Treatment Not on file documented as of this encounter Visit Diagnoses Not on filedocumented in this encounter Care Teams Compass Operator Relationship Specialty Start Date End Date Charlie Mera MD NO ADDRESS ON FILE PCP - General 09/19/05 documented as of this encounter
--- OUTSIDE RECORDS SUMMARY | 2024-12-29 01:00 | XMS_ITS | Encounter Summary ---
Author Organization [employer] Address [address] [place] [address] Care Team Providers Care Portfolio Accountant Name Role Phone Charlie Mera MD Primary Care Provider Mary tapia Encounter Details Date Type Department Care Team (Latest Contact Info) Description 06/14/2005 Inpatient Historical [facility] PATIENT IN A BED Jackson Theodore MD [address] [place] [address] Pratik Asencio DO [address] [place] [address] [place], [place] [id number] INFECTION-ANTEPARTUM (Primary Dx) Social History Tobacco Use Types Packs/Day Years Used Date Smoking Tobacco: Never Assessed Comments Unknown Sex and Gender Information Value Date Recorded Sex Assigned at Not on file Legal Sex Female 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 AM BARREL RIBS 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 Gender Identity Not on file Sexual Orientation [...] CHEMISTRY ORDERABLES Final Result Performing Organization Address City/[facility] Phone Number INTERFACE SYSTEM Refer to clinic/hospital department * T4 FREE (06/20/2005 5:15 AM CDT) T4 FREE 0.9 0.9 - 1.7 ng/dL INTERFACE SYSTEM 06/20/2005 5:15 AM CDT Сергей Carbajal MD CHEMISTRY ORDERABLES Final Result Performing Organization Address [facility] Phone Number INTERFACE SYSTEM Refer to clinic/hospital department * TSH (06/20/2005 5:15 AM CDT) TSH 1.58 0.27 - 4.20 uU/mL INTERFACE SYSTEM 06/20/2005 5:15 AM CDT us Сергей Carbajal MD CHEMISTRY ORDERABLES Final Result Performing Organization Address [facility] Phone Number INTERFACE SYSTEM Refer to clinic/hospital department * GENTAMICIN LEVEL PEAK (06/17/2005 2:40 PM CDT) GENTAMICIN, PEAK 6.9 6.0 - 10.0 ug/mL INTERFACE SYSTEM Comment:Gentamicin Peak Toxi c Level= >12.0 ug/mL 06/17/2005 2:40 PM CDT us Jackson Theodore MD CHEMISTRY ORDERABLES Fin al Result Performing Organization Address City/[facility] Phone Number INTERFACE SYSTEM Refer to clinic/hospital department * GENTAMICIN LEVEL TROUGH (06/17/2005 1:30 PM CDT) GENTAMICIN, TROUGH 0.7 0.0 - 2.0 ug/mL INTERFACE SYSTEM Comment:Gentamicin Trough To xic Level = > 2.0 ug/mL 06/17/2005 1:30 PM CDT us Pratik Asencio DO CHEMISTRY ORDERABLES Final Res ult Performing Organization Address [facility] Phone Number INTERFACE SYSTEM Refer to clinic/hospital department * (ABNORMAL) GENTAMICIN LEVEL PEAK (06/16/2005 5:00 PM CDT) GENTAMICIN, PEAK 2.6(L) 6.0 - 10.0 ug/mL INTERFACE SYSTEM Comment:Gentamicin Peak Toxi c Level= >12.0 ug/mL 06/16/2005 5:00 PM CDT Jackson Theodore MD CHEMISTRY ORDERABLES Fin al Result Performing Organization Address [facility] [place] Number INTERFACE SYSTEM Refer to clinic/hospital department * GENTAMICIN LEVEL TROUGH (06/16/2005 3:30 PM CDT) GENTAMICIN, TROUGH <0.4 0.0 - 2.0 ug/mL INTERFACE SYSTEM Comment:Gentamicin Trough To xic Level = > 2.0 ug/mL 06/16/2005 3:30 PM CDT Pratik Asencio DO CHEMISTRY ORDERABLES Final Res ult Performing Organization Address [facility] Phone Number INTERFACE SYSTEM Refer [...] ORDERABLES Final Re sult Performing Organization Address City/State/[facility] [...] Re sult Performing Organization Address [facility] Phone Number INTERFACE SYSTEM Refer to [...] URINE ORDERABLES Final Result Performing Organization Address [facility] Phone Number INTERFACE SYSTEM Refer to clinic/hospital department * URINALYSIS WITH REFLEX CULTURE (06/14/2005 4:09 PM CDT) Pathologist [facility] URINE CULTURE ORDER Culture ordered INTERFACE SYSTEM [...] Result Performing Organization Address [facility] Phone Number INTERFACE SYSTEM Refer to clinic/hospital department documented in this encounter Visit Diagnoses Diagnosis Infections of genitourinary tract antepartum- Primary documented in this encounter Care Teams Portfolio Accountant Relationship Specialty Start Date End Date Charlie Mera MD NO ADDRESS ON FILE PCP - General 09/19/05 documented as of this encounter
--- OUTSIDE RECORDS SUMMARY | 2024-12-29 01:00 | XMS_ITS | Encounter Summary ---
Author Organization [employer] Address [address] [place] [address] Care Team Providers Care Presser And Blocker Knitted Goods Name Role Phone Charlie Mera MD Primary Care Provider Mary tapia Encounter Details Date Type Department Care Team (Latest Contact Info) Description 05/30/2005 Outpatient Historical [facility] Pratik Asencio, [address] [facility] [address] [address] PREG COMPL NEC-ANTEPART (Primary Dx) Social History Tobacco Use Types Packs/Day Years Used Date Smoking Tobacco: Never Assessed Comments Unknown Sex and Gender Information Value Date Recorded Sex Assigned at Not on file Legal Sex Female 4:21 AM MASH TUB COOKER Gender Identity Not on file Sexual Orientation Not on file documented as of this encounter Plan of Treatment Not on file documented as of this encounter Visit Diagnoses Diagnosis Other specified complication, antepartum(646.83)- Primary Other specified complication, antepartum documented in this encounter Care Teams Presser And Blocker Knitted Goods Relationship Specialty Start Date End Date Charlie Mera MD NO ADDRESS ON FILE PCP - General 09/19/05 documented as of this encounter
--- OUTSIDE RECORDS SUMMARY | 2024-12-29 01:00 | XMS_ITS | Encounter Summary ---
Author Organization [employer] Address 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
--- OUTSIDE RECORDS SUMMARY | 2024-12-29 01:00 | XMS_ITS | Encounter Summary ---
Author Organization [facility] Address [address] [place] [address] Care Team Providers Care Assistant Professor Of Nursing Name Role Phone Charlie Mera MD Primary Care Provider Unavailab le Encounter Details Date Type Department Care Team (Late st Contact Info) Description 08/24/2004 Outpatient Historical [facility] Maternal and Ground Floor [address] [place] [address] Gwendolyn Mcdonnell MD [address] [place] [address] Social History Tobacco Use Types Packs/Day Years Used Date Smoking Tobacco: Never Assessed Comments Unknown Sex and Gender Information Value Date Recorded Sex Assigned at Not on file Legal Sex Female 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
--- OUTSIDE RECORDS SUMMARY | 2024-12-29 01:00 | XMS_ITS | Encounter Summary ---
Author Organization [employer] Address 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
--- OUTSIDE RECORDS SUMMARY | 2024-12-29 01:00 | XMS_ITS | Encounter Summary ---
Author Organization [employer] Address [address] [place] [address] Care Team Providers Care Painting Contractor Name Role Phone Charlie Mera MD Primary Care Provider Mary tapia Encounter Details Date Type Department Care Team (Latest Contact Info) Description 05/02/2005 Outpatient Historical [facility] PATIENT IN A BED AsencioMumtazik Quirino, DO [address] [facility] [address] [address] INFECTION-ANTEPARTUM (Primary Dx) Social History Tobacco Use Types Packs/Day Years Used Date Smoking Tobacco: Never Assessed Comments Unknown Sex and Gender Information Value Date Recorded Sex Assigned at Not on file Legal Sex Female 4:21 AM CASINO RUNNER Gender Identity Not on file Sexual Orientation [...] URINE ORDERABLES Final Result Performing Organization Address [facility] Phone Number INTERFACE SYSTEM Refer [...] URINE ORDERABLES Final Result Performing Organization Address [facility] Phone Number INTERFACE SYSTEM Refer [...] drugs of abuse are available on the [facility] Intranet at: [email or web address] Select: Drugs of Abuse ? [facility] To inquire about any potential cross-reactivity [...] ORDERABLES Final Re sult Performing Organization Address City/[facility] Co de Phone Number INTERFACE SYSTEM Refer [...] ORDERABLES Final Re sult Performing Organization Address City/[facility] Co de Phone Number INTERFACE SYSTEM Refer to clinic/hospital department documented in this encounter Visit Diagnoses Diagnosis Infections of genitourinary tract antepartum- Primary documented in this encounter Care Teams Painting Contractor Relationship Specialty Start Date End Date Charlie Mera MD NO ADDRESS ON FILE PCP - General 09/19/05 documented as of this encounter
--- OUTSIDE RECORDS SUMMARY | 2024-12-29 01:00 | XMS_ITS | Encounter Summary ---
Author Organization [facility] Address [address] [place] [address] Care Team Providers Care Glass Driller Name Role Phone Charlie Mera MD Primary Care Provider Unavailab le Encounter Details Date Type Department Care Team (Late st Contact Info) Description 06/05/2005 Outpatient Historical [facility] Maternal and Ground Floor [address] [place] [address] Pratik Asencio DO [address] [facility] [address] [place], [place] [id number] Social History Tobacco Use Types Packs/Day Years Used Date Smoking Tobacco: Never Assessed Comments Unknown Sex and Gender Information Value Date Recorded Sex Assigned at Not on file Legal Sex Female 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
--- OUTSIDE RECORDS SUMMARY | 2024-12-29 01:00 | XMS_ITS | Encounter Summary ---
Author Organization [employer] Address [address] [place] [address] Care Team Providers Care Maintenance Person Name Role Phone Charlie Mera MD Primary Care Provider Mary le Encounter Details Date Type Department Care Team (Late st Contact Info) Description 11/28/2004 Outpatient Historical [facility] Yong Rahman MD [address] [place] [address] CALCULUS OF KIDNEY (Primary Dx) Social History Tobacco Use Types Packs/Day Years Used Date Smoking Tobacco: Never Assessed Comments Unknown Sex and Gender Information Value Date Recorded Sex Assigned at Not on file Legal Sex Female 4:21 AM OPERATIONS CHIEF Gender Identity Not on file Sexual Orientation Not on file documented as of this encounter Plan of Treatment Not on file documented as of this encounter Visit Diagnoses Diagnosis Calculus of kidney- Primary documented in this encounter Care Teams Maintenance Person Relationship Specialty Start Date End Date Charlie Mera MD NO ADDRESS ON FILE PCP - General 09/19/05 documented as of this encounter
--- OUTSIDE RECORDS SUMMARY | 2024-12-29 01:00 | XMS_ITS | Encounter Summary ---
Author Organization [employer] Address [address] [place] [address] Care Team Providers Care Senior Planning Analyst Name Role Phone Charlie Mera MD Primary Care Provider Mary tapia Encounter Details Date Type Department Care Team (Latest Contact Info) Description 04/04/2005 Inpatient Historical [facility] PATIENT IN A BED Jackson Theodore MD [address] [place] [address] Pratik Asencio DO [address] [place], [place] [id number] RENAL DIS NOS-ANTEPARTUM (Primary Dx) Social History Tobacco Use Types Packs/Day Years Used Date Smoking Tobacco: Never Assessed Comments Unknown Sex and Gender Information Value Date Recorded Sex Assigned at Not on file Legal Sex Female 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 DEVICE DEVELOPER Gender Identity Not on file Sexual [...] ORDERABLES Fin al Result Performing Organization Address [facility] Phone Number INTERFACE SYSTEM Refer to clinic/hospital department * LIPASE (04/06/2005 9:15 AM CDT) LIPASE 15 13 - 60 U/L INTERFAC E SYSTEM 04/06/2005 9:15 AM CDT Jackson Theodore MD CHEMISTRY ORDERABLES Fin al Result Performing Organization Address [facility] Phone Number INTERFACE SYSTEM Refer to [...] ORDERABLES Fin al Result Performing Organization Address [facility] Phone Number INTERFACE SYSTEM Refer to [...] ORDERABLES Final Res ult Performing Organization Address [facility] Phone Number INTERFACE SYSTEM Refer to [...] ORDERABLES Final Re sult Performing Organization Address [facility] Phone Number INTERFACE SYSTEM Refer to [...] ORDERABLES Final Re sult Performing Organization Address [facility] Phone Number INTERFACE SYSTEM Refer to clinic/hospital department * (ABNORMAL) C-REACTIVE PROTEIN (04/04/2005 11:12 AM CDT) CRP 1.1(H) 0.0 - 0.8 mg/dL INTERFACE SYSTEM 04/04/2005 11:1 2 AM CDT Pratik Asencio DO CHEMISTRY ORDERABLES Final Res ult Performing Organization Address [facility] Phone Number INTERFACE SYSTEM Refer to [...] URINE ORDERABLES Final Result Performing Organization Address [facility] de Phone Number INTERFACE SYSTEM Refer [...] URINE ORDERABLES Final Result Performing Organization Address [facility] de Phone Number INTERFACE SYSTEM Refer to clinic/hospital department documented in this encounter Visit Diagnoses Diagnosis 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
--- OUTSIDE RECORDS SUMMARY | 2024-12-29 01:00 | XMS_ITS | Encounter Summary ---
Author Organization [employer] Address [address] [place] [address] Care Team Providers Care Regulator Tester Name Role Phone Charlie Mera MD Primary Care Provider Mary le Encounter Details Date Type Department Care Team (Late st Contact Info) Description 12/07/2004 Outpatient Historical [facility], [address] Jb Blanco MD [address] [facility] [address] [address] [place] [id number] ROUT POSTPART FOLLOW-UP (Primary Dx) Social History Tobacco Use Types Packs/Day Years Used Date Smoking Tobacco: Never Assessed Comments Unknown Sex and Gender Information Value Date Recorded Sex Assigned at Not on file Legal Sex Female 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
--- OUTSIDE RECORDS SUMMARY | 2024-12-29 01:00 | XMS_ITS | Encounter Summary ---
Author Organization [employer] Address 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
--- OUTSIDE RECORDS SUMMARY | 2024-12-29 01:00 | XMS_ITS | Encounter Summary ---
Author Organization [facility] Address 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
--- OUTSIDE RECORDS SUMMARY | 2024-12-29 01:00 | XMS_ITS | Clinical Summary ---
Author Organization [facility] Address [facility] [place] [place] [address] Care Team Providers Care Cytopathology Technologist Name Role Phone Pebbles Betancourt NP Primary Care Provider [phone] Lina Arboleda MD Unavailable [phone] Orly Michaud MD Unavailable [phone] Allergies Active Allergy Reactions Criticality Noted [...] episode mixed, current episode severity unspecified (CMS/HCC [facility]) Take 1 tablet (2 mg total) by [...] gain 02/22/2021 SIRS (systemic inflammatory response syndrome) ([facility]) 02/16/2021 Fatty liver 11/28/2020 Hypoalbuminemia 11/28/2020 Generalized edema 10/22/2020 Fluid retention 10/18/2020 Left renal stone 10/17/2020 Overview (10/22/2020): Added automatically from request for surgery [id number] H/O: urinary stone 10/10/2020 Serum creatinine raised 10/10/2020 Bipolar affective disorder, current episode mixed ([facility]) 05/16/2020 Nonrheumatic aortic (valve) insufficiency 2019 Nephrolithiasis 05/27/2019 Abdominal pain 04/18/2018 Assessment & Plan (04/19/2018 7:28 AM CDT): Acute on chronic, likely 2/2 duodenitis as seen on CT abdomen Pt is chronic back pain on prison opioid treatment Opioid assoc constipation, but had [...] Narcotic overdose, undetermi zana intent, initial encounter ([facility]) 09/27/2017 Assessment & Plan (09/28/2017 9:31 AM COIL MACHINE OPERATOR): Found with Fentanyl, Oxycodone, and Methadone [...] extubated Assessment & Plan (09/28/2017 9:32 AM COIL MACHINE OPERATOR): Fell and had swelling in Right [...] Encounters Date Type Department Care Team Description 12/10/2024 2:49 PM CDT - 12/10/2024 11:59 PM CDT Hospital Encounter [facility] Diagnostic Imaging [address] [place] [address] Franck Lund MD Discharge Disposition: Home or Self Care (Routine Discharge) 12/10/2024 2:48 PM CDT Hospital Encounter [facility] Open MRI [address] [place] [address] Franck Lund MD Discharge Disposition: Home or Self Care (Routine Discharge) 12/10/2024 Travel 11/07/2024 8:10 AM COIL MACHINE OPERATOR - 11/07/2024 11:59 PM COIL MACHINE OPERATOR Hospital Encounter [facility] [place] [address] Daniel Chun MD Discharge Disposition: Home or Self Care (Routine Discharge) 11/07/[address] [facility] [place] [address] Daniel Chun MD 11/07/2024 Travel from Last 3 Months Immunizations Immunization Administration Dates Next Due PFIZER COVID-19 (ORIGINAL [...] Sex Assigned at Female 11/07/2024 8:08 AM COIL MACHINE OPERATOR Legal Sex Female 3:59 PM CDT [...] 5 Years) and At-Risk Patients (6 to 49 Years) (1 of 2 - PCV) 1976 Hepatitis B Vaccines (1 of 3 - 19+ 3-dose series) 1989 Zoster Vaccines (1 of 2) 2020 COVID-19 Vaccine ( - season) 2024 05/02/2021, 04/09/2021, 04/09/2021, Additional history exists PHQ-2 (Physician [place]) 09/16/2024 Mammogram Screening 09/07/2025 09/07/2023, 03/29/2021, 04/25/2018 [...] Affordable Food Sources General No Nohelia Hobson, pattern puncher Patient and family will have open conversation regarding patient goals and wishes for treatment General No Myrna Leger RN Medical Devices Implanted Type Area Financial Sales Consultant Device Identifier Shelf Expiration Date Model / Serial / Lot Stimulator Lead-11/13/2019 Implanted:Qty: 1 on 11/13/2019 by Dileep Colorado MD Lead Implant Spine Thoracic [employer] [id number] / [id number] / Stimulator Lead-11/13/2019 Implanted:Qty: 1 on 11/13/2019 by Dileep Colorado MD Lead Implant Spine Thoracic [employer] [id number] / [id number] / Stent Bard Despard 6fr X 24cm - [id number] Implanted:Qty: 1 on 09/04/2019 by Deep Sommers MD at [facility] Stent Right: Ureter [employer] 09/24/2023 [id number] / / [id number] Stimulator-2/2 04/2020 Implanted:Qty: 1 on 11/13/2019 by Dileep Colorado MD Stimulator Implant Abdomen [employer] [id number] / [id number] / Description:MR Conditional a t 1.5 [...] window. Prone or Supine only Stent Bard Despard 6fr X 26cm - [id number] Implanted:Qty: 1 on 05/19/2019 by Deep Sommers MD at [facility] Left: Ureter [employer] 08/13/2023 [id number] / / [id number] Procedures Procedure Name Priority Date/Time Associated Diagnosis Comments MRI LUMB SPINE WO CON Routine 12/10/2024 3:55 PM CDT Spinal stenosis, lumbar region with neurogenic claudication XR ABD AP+LAT STAT 12/10/2024 3:05 PM CDT Encounter for imaging to screen for metal prior to MRI MAGNESIUM Routine 11/07/2024 8:34 AM COIL MACHINE OPERATOR Chronic kidney disease, unspecified RENAL FUNCTION PANEL Routine 11/07/2024 8:34 AM COIL MACHINE OPERATOR Chronic kidney disease, unspecified ALBUMIN URINE RANDOM W/CREATININE Routine 11/07/2024 8:30 AM COIL MACHINE OPERATOR Chronic kidney disease, unspecified URINALYSIS, AUTO, COMPLETE Routine 11/07/2024 8:30 AM COIL MACHINE OPERATOR Chronic kidney disease, unspecified MG SCREENING W KAITLYNN VERENIEC DIGI Routine 09/07/2023 9:44 AM COIL MACHINE OPERATOR Encounter for screening mammogram for malignant neoplasm of breast HEPATITIS C ANTIBODY Routine 12/02/2020 8:56 AM CDT Acid phosphatase elevated from Last 3 Months or Most Recently Relevant to Health Maintenance Results * MRI LUMB SPINE WO CON (12/10/2024 3:55 PM CDT) Anatomical Region Laterality Modality Spine Magnetic Resonan ce 12/14/2024 9:43 PM CDT Impressions 12/14/2024 9:54 PM CDT IMPRESSION: 1. Multilevel degenerative disc disease and facet arthropathy as detailed above. 2. Severe spinal canal stenosis at L3-L4. 3. Moderate spinal canal stenosis at L2-L3. 4. Multilevel neural foraminal stenosis as described. 5. No acute osseous abnormalities. Referred By: FRANCK LUND Interpreted By: Danny Chaudhari DO, 12/14/2024 9:43 PM Narrative 12/14/2024 9:54 PM CDT [address] [address] EXAMINATION: MRI LUMB SPINE WO CON HISTORY: Lower back pain. Lumbar spinal stenosis. Neurogenic claudication. COMPARISON: MRI lumbar spine 11/09/2023. TECHNIQUE: Multisequence and multiplanar MR images of the lumbar spine without the use of intravenous contrast. FINDINGS: There are 5 lumbar-type vertebral bodies. No visible acute fracture or dislocation. No vertebral body height loss. There is multilevel degenerative disc disease and facet arthropathy throughout the lumbar spine. There is anterior and posterior spinal fusion hardware at L4-L5 and L5-S1. There are interbody spacer devices. There is associated metallic susceptibility artifact which limits adjacent evaluation. There is prominent marrow edema involving the left-sided facets at L4-L5, likely degenerative/arthritic. The conus terminates at T12. The cauda equina nerve roots appear normally distributed. Evaluation of the individual lumbar vertebral levels is as follows: T12-L1: Disc bulge. Bilateral facet arthropathy. Small 4 mm left synovial cyst. Mild spinal canal stenosis. No neural foraminal stenosis. L1-L2: Disc bulge. Bilateral facet arthropathy. No spinal canal or neural foraminal stenosis. L2-L3: Disc bulge. Bilateral facet arthropathy. Moderate spinal canal stenosis with some impingement upon the descending nerve roots. Mild right neural foraminal stenosis. Moderate left neural foraminal stenosis. L3-L4: Disc bulge. Bilateral facet arthropathy. Severe spinal canal stenosis with impingement upon the descending nerve roots. Moderate right neural foraminal stenosis. Gvwb-wh-pohrwzfx left neural foraminal stenosis. L4-L5: Posterior disc osseous complex. Bilateral facet arthropathy. Mild spinal canal stenosis. Moderate right neural foraminal stenosis. Mild left neural foraminal stenosis. L5-S1: Posterior disc osseous complex. Bilateral facet arthropathy. No spinal canal stenosis. Mild right neural foraminal stenosis. Moderate left neural foraminal stenosis. No visible acute-appearing paraspinous soft tissue abnormalities. There is left renal cortical scarring. The aorta is normal caliber. Procedure Note Danny Chaudhari, - 12/14/2024 [id number] [place] [address] EXAMINATION: MRI LUMB SPINE WO CON HISTORY: Lower back pain. Lumbar spinal stenosis. Neurogenic claudication. COMPARISON: MRI lumbar spine 11/09/2023. TECHNIQUE: Multisequence and multiplanar MR images of the lumbar spine without theuse of intravenous contrast. FINDINGS: There are 5 lumbar-type vertebral bodies. No visible acute fracture ordislocation. No vertebral body height loss. There is multileveldegenerative disc disease and facet arthropathy throughout the lumbarspine. There is anterior and posterior spinal fusion hardware at L4-L5and L5-S1. There are interbody spacer devices. There is associatedmetallic susceptibility artifact which limits adjacent evaluation. Thereis prominent marrow edema involving the left-sided facets at L4-L5, likelydegenerative/arthritic. The conus terminates at T12. The cauda equinanerve roots appear normally distributed. Evaluation of the individual lumbar vertebral levels is as follows: T12-L1: Disc bulge. Bilateral facet arthropathy. Small 4 mm leftsynovial cyst. Mild spinal canal stenosis. No neural foraminalstenosis. L1-L2: Disc bulge. Bilateral facet arthropathy. No spinal canal orneural foraminal stenosis. L2-L3: Disc bulge. Bilateral facet arthropathy. Moderate spinal canalstenosis with some impingement upon the descending nerve roots. Mildright neural foraminal stenosis. Moderate left neural foraminalstenosis. L3-L4: Disc bulge. Bilateral facet arthropathy. Severe spinal canalstenosis with impingement upon the descending nerve roots. Moderate rightneural foraminal stenosis. Cthp-pb-yihlzyqi left neural foraminalstenosis. L4-L5: Posterior disc osseous complex. Bilateral facet arthropathy. Mildspinal canal stenosis. Moderate right neural foraminal stenosis. Mildleft neural foraminal stenosis. L5-S1: Posterior disc osseous complex. Bilateral facet arthropathy. Nospinal canal stenosis. Mild right neural foraminal stenosis. Moderateleft neural foraminal stenosis. No visible acute-appearing paraspinous soft tissue abnormalities. Thereis left renal cortical scarring. The aorta is normal caliber. IMPRESSION: 1. Multilevel degenerative disc disease and facet arthropathy as detailedabove. 2. Severe spinal canal stenosis at L3-L4. 3. Moderate spinal canal stenosis at L2-L3. 4. Multilevel neural foraminal stenosis as described. 5. No acute osseous abnormalities. Referred By: FRANCK LUND Interpreted By: Danny Chaudhari DO, 12/14/2024 9:43 PM us Franck Lund MD MRI Final Result * XR ABD AP+LAT (12/10/2024 3:05 PM CDT) Anatomical Region Laterality Modality Abdomen Radiographic Janee ging 12/10/2024 3:06 PM CDT Impressions 12/10/2024 3:23 PM CDT IMPRESSION: Implanted stimulator device in the left flank region with two intact leads extending into the spinal canal as discussed above. Ordered By: FRANCK H PURVINES Interpreted By: Casa Hankins, 12/10/2024 3:06 PM Narrative 12/10/2024 3:[address] PM [address]T [address] [address] IMAGING STUDIES: XR ABD AP+LAT DATE: 12/10/2024 2:53 PM HISTORY: Check for abandoned leads and stimulator placement prior to MRI exam 53-year-old female. Planned MRI lumbar spine without contrast today. Requested evaluation of spinal stimulator and leads prior to MRI. COMPARISON: CT lumbar spine without contrast 03/10/2024. Radiographs lumbar spine 11/09/2023. Radiographs thoracic spine 08/04/2022. DISCUSSION: Upright AP view of the chest (excluding the apices) to the iliac crests region and upright lateral view of the chest (excluding the apices) to the lower abdomen region. Stimulator device in the left flank region with dual leads extending medially. The leads have several loops and the left paraspinal region at L1-2 level. Leads extend into the spinal canal at the T12-L1 level with one lead tip at the T8-9 level and other lead tip up to the superior T6 level. The appearance of these stimulator device and leads is stable compared to radiographs of the thoracic and lumbar spine and lower portion of the leads is also intact on [address]23 CT. Partially visualized anterior fusion plate at L4-5 and at L5-S1 and posterior fusion jenna and fixation screws on the right at L4-5 level. Interbody fusion devices at L4-5 and L5-S1. Thoracic and lumbar spinal degenerative changes. No acute abnormality in the visualized chest. Cholecystectomy clips. Nonobstructive bowel gas pattern. Procedure Note Casa Hankins MD - 12/10/[address] [address] IMAGING STUDIES: XR ABD AP+LATDATE: 12/10/2024 2:53 PM HISTORY: Check for abandoned leads and stimulator placement prior to MRIexam 53-year-old female. Planned MRI lumbar spine without contrasttoday. Requested evaluation of spinal stimulator and leads prior to MRI. COMPARISON: CT lumbar spine without contrast 03/10/2024. Radiographslumbar spine 11/09/2023. Radiographs thoracic spine 08/04/2022. DISCUSSION: Upright AP view of the chest (excluding the apices) to the iliac crestsregion and upright lateral view of the chest (excluding the apices) to thelower abdomen region. Stimulator device in the left flank region with dual leads extendingmedially. The leads have several loops and the left paraspinal region atL1-2 level. Leads extend into the spinal canal at the T12-L1 level withone lead tip at the T8-9 level and other lead tip up to the superior H1jguaw. The appearance of these stimulator device and leads is stablecompared to radiographs of the thoracic and lumbar spine and lower portionof the leads is also intact on 2023 CT. Partially visualized anterior fusion plate at L4-5 and at L5-S1 andposterior fusion jenna and fixation screws on the right at L4-5 level.Interbody fusion devices at L4-5 and L5-S1. Thoracic and lumbar spinaldegenerative changes. No acute abnormality in the visualized chest. Cholecystectomy clips.Nonobstructive bowel gas pattern. IMPRESSION: Implanted stimulator device in the left flank region with two intact leadsextending into the spinal canal as discussed above. Ordered By: FRANCK LUND Interpreted By: Casa Hankins, 12/10/2024 3:06 PM us Franck Lund MD GENERAL IMAGING Final Result * (ABNORMAL) RENAL FUNCTION PANEL (11/07/2024 8:34 AM COIL MACHINE OPERATOR) GLUCOSE 129(H) 70 - 99 MG/DL 11/07/2024 10:25 AM COIL MACHINE OPERATOR [facility] BUN 25(H) 7 - 18 MG/DL 11/07/2024 10:25 AM [facility] CREATININE S/P/B 1.18(H) 0.55 - 1.02 MG/DL 11/07/2024 10:25 AM [facility] SODIUM S/P/B 143 136 - 145 MMOL/L 11/07/2024 10:25 AM [facility] POTASSIUM S/P/B 3.8 3.5 - 5.1 MMOL/L 11/07/2024 10:25 AM [facility] CHLORIDE S/P/B 112 97 - 115 MMOL/L 11/07/2024 10:25 AM [facility] CO2 26.4 21 - 32 MMOL/L 11/07/2024 10:25 AM [facility] CALCIUM S/P/B 9.5 8.5 - 10.1 MG/DL 11/07/2024 10:25 AM [facility] ALBUMIN S/P/B 3.5 3.4 - 5.0 G/DL 11/07/2024 10:25 AM [facility] PHOSPHORUS 3.2 2.5 - 4.9 MG/DL 11/07/2024 10:25 AM [facility] ANION GAP 4.6 2 - 10 MMOL/L 11/07/2024 10:25 AM [facility] BUN CREATININE RATIO 21.2 6 - 26 11/07/2024 10:25 AM [facility] GFR ESTIMATE 55(L) >90 ML/MIN/1.7 3 M2 11/07/2024 10:25 AM [facility] Comment: NOTE: eGFR is not calculated for patients <18 years of age or gender unknown. This is an estimated GFR calculation using the new CKD EPI creatinine equation without race and so does not require a correction factor for race. This estimated GFR should not be used for calculating drug doses. 11/07/2024 8:34 AM COIL MACHINE OPERATOR us Daniel Chun MD LABORATORY Final Result [facility] [address] [place] [address], [place] [phone] * MAGNESIUM (11/07/2024 8:34 AM COIL MACHINE OPERATOR) MAGNESIUM 2.3 1.8 - 2.4 MG/DL 11/07/2024 10:25 AM [facility] 11/07/2024 8:34 AM COIL MACHINE OPERATOR Daniel Chun MD LABORATORY Final Result [facility] [address] [place] [address], [place] [phone] * (ABNORMAL) URINALYSIS, AUTO, COMPLETE (11/07/2024 8:30 AM COIL MACHINE OPERATOR) SPECIMEN TYPE URINE CLEAN CATCH 11/07/2024 8:20 AM [facility] COLOR (U) LIGHT YELLOW 11/07/2024 11:13 AM [facility] TRANSPARENCY CLEAR 11/07/2024 11:13 AM [facility] SPECIFIC GRAVITY (U) 1.015 1.001 - 1.030 11/07/2024 11:13 AM [facility] U PH 6.5 5.0 - 9.0 11/07/2024 11:13 AM [facility] LEUKOCYTES (U) 250(A) NEGATIVE 11/07/2024 11:13 AM [facility] NITRITES NEGATIVE NEGATIVE 11/07/2024 11:13 AM [facility] PROTEIN RANDOM (U) NEGATIVE <30 MG/DL 11/07/2024 11:13 AM [facility] GLUCOSE (U) NORMAL NORMAL MG/DL 11/07/2024 11:13 AM [facility] KETONES MG/DL (U) NEGATIVE NEGATIVE MG/DL 11/07/2024 11:13 AM [facility] UROBILINOGEN NORMAL NORMAL MG/DL 11/07/2024 11:13 AM [facility] BILIRUBIN (U) NEGATIVE NEGATIVE MG/DL 11/07/2024 11:13 AM [facility] BLOOD (U) NEGATIVE NEGATIVE 11/07/2024 11:13 AM [facility] MUCUS RARE /LPF 11/07/2024 11:13 AM [facility] WBC/HPF 3 <6 /HPF 11/07/2024 11:13 AM [facility] RBC/HPF 1 <6 /HPF 11/07/2024 11:13 AM [facility] SQUAMOUS EPITHELIALS RARE /HPF 11/07/2024 11:13 AM [facility] URINE SPECIMEN OBTAINED BY CLEAN CATCH PROCEDURE / Unknown 11/07/2024 8:[address] [facility] us Daniel Chun MD URINE ORDERABLES Final Result [facility] [address] [place] [address], [place] [phone] * MICROALBUMIN CREAT RATIO, URINE RANDOM (11/07/2024 8:30 AM COIL MACHINE OPERATOR) CREATININE (U) 69.8 28 - 217 MG/DL 11/07/2024 11:30 AM [facility] MICROALBUMIN (U) 0.7 <2.0 mg/dL 11/07/19 11:30 AM [facility] ALBUMIN/CREAT RATIO 9.8 <30 MG/G 11/07/2024 11:30 AM [facility] URINE SPECIMEN / Unknown 11/07/2024 8:30 AM COIL MACHINE OPERATOR Daniel Chun MD URINE ORDERABLES Final Result [facility] [address] [place] [address], [place] [phone] * MG SCREENING W KAITLYNN VERENICE DIGI (09/07/2023 9:44 AM COIL MACHINE OPERATOR) Anatomical Region Laterality Modality Breast Bilateral Mammography 09/10/2023 9:07 AM COIL MACHINE OPERATOR Narrative 09/10/2023 9:08 AM COIL MACHINE OPERATOR Examination: Screening bilateral mammogram Exam Date/Time: [...] Interpreted By: Clayton Gan, 09/10/2023 9:07 AM us Pebbles Betancourt FARM SERVICE ADVISER MAMMO Final Result * HEPATITIS C ANTIBODY (12/02/2020 8:56 AM CDT) HEPATITIS C AB NON-REACTI VE NON-REACTI VE 12/02/2020 10:23 AM CDT [facility] 12/02/2020 8:56 AM CDT Orly Michaud MD LABORATORY Final Result [facility] [address] [place] [address], from Last 3 Months or Most Recently Relevant to Health Maintenance Insurance [facility] Advance Directives * Full Code (Latest [...] 6:17 PM 04/19/2018 2:44 PM Care Teams Cytopathology Technologist Relationship Specialty Start Date End Date Pebbles Betancourt NP [address] [facility] [address] [place] [address] PCP - General FAMILY PRACTICE 03/16/17 Lina Arboleda MD [address] [facility] [address] [place] [address] [place] Agricultural Equipment Operator CARDIOVASCULAR DISEASE 03/28/17 Orly Michaud MD [address] [facility] [address] [place] [address] Referring Physician GASTROENTEROLOGY 08/24/19
--- OUTSIDE RECORDS SUMMARY | 2024-12-29 01:00 | XMS_ITS | Encounter Summary ---
Author Organization [employer] Address [address] [place] [address] Care Team Providers Care Aircraft Cylinder Mechanic Name Role Phone Charlie Mera MD Primary Care Provider Mary le Encounter Details Date Type Department Care Team (Late st Contact Info) Description 08/17/2004 Outpatient Historical [facility] Teodora Cano [address] [place] [address] SUPERVIS OTHER NORMAL PREG (Primary Dx) Social History Tobacco Use Types Packs/Day Years Used Date Smoking Tobacco: Never Assessed Comments Unknown Sex and Gender Information Value Date Recorded Sex Assigned at Not on file Legal Sex Female 4:21 AM HYPERION ADMINISTRATOR Gender Identity Not on file Sexual Orientation Not on file documented as of this encounter Plan of Treatment Not on file documented as of this encounter Visit Diagnoses Diagnosis Supervision of other normal - Primary documented in this encounter Care Teams Aircraft Cylinder Mechanic Relationship Specialty Start Date End Date Charlie Mera MD NO ADDRESS ON FILE PCP - General 09/19/05 documented as of this encounter
--- OUTSIDE RECORDS SUMMARY | 2024-12-29 01:00 | XMS_ITS | Encounter Summary ---
Author Organization [facility] Address [address] [place] [address] Care Team Providers Care Snapper On Name Role Phone Charlie Mera MD Primary Care Provider Unavailab le Encounter Details Date Type Department Care Team (Late st Contact Info) Description 04/24/2005 Outpatient Historical [facility] [address] [place] [address] Pratik Asencio DO [address] [facility] [address] [place], [place] [id number] Social History Tobacco Use Types Packs/Day Years Used Date Smoking Tobacco: Never Assessed Comments Unknown Sex and Gender Information Value Date Recorded Sex Assigned at Not on file Legal Sex Female 4:21 AM CHILD CARE ASSISTANT Gender Identity Not on file Sexual Orientation Not on file documented as of this encounter Plan of Treatment Not on file documented as of this encounter Visit Diagnoses Not on filedocumented in this encounter Care Teams Snapper On Relationship Specialty Start Date End Date Charlie Mera MD NO ADDRESS ON FILE PCP - General 09/19/05 documented as of this encounter
--- OUTSIDE RECORDS SUMMARY | 2024-12-29 01:00 | XMS_ITS | Encounter Summary ---
Author Organization [facility] Address [address] [place] [address] Care Team Providers Care Tree Tapping Laborer Name Role Phone Charlie Mera MD Primary Care Provider Unavail le Encounter Details Date Type Department Care Team (Late st Contact Info) Description 08/17/2004 Outpatient Historical [facility] [address] [place] [address] Teodora Cano [address] [place], [place] [id number] Social History Tobacco Use Types Packs/Day Years Used Date Smoking Tobacco: Never Assessed Comments Unknown Sex and Gender Information Value Date Recorded Sex Assigned at Not on file Legal Sex Female 4:21 AM COMPUTER INFORMATION SCIENCE PROFESSOR Gender Identity Not on file Sexual Orientation Not on file documented as of this encounter Plan of Treatment Not on file documented as of this encounter Visit Diagnoses Not on filedocumented in this encounter Care Teams Tree Tapping Laborer Relationship Specialty Start Date End Date Charlie Mera MD NO ADDRESS ON FILE PCP - General 09/19/05 documented as of this encounter
--- OUTSIDE RECORDS SUMMARY | 2024-12-29 01:00 | XMS_ITS | Encounter Summary ---
Author Organization [employer] Address [address] [place] [address] Care Team Providers Care Extended Day Teacher Name Role Phone Charlie Mera MD Primary Care Provider Unavailab le Encounter Details Date Type Department Care Team (Late st Contact Info) Description 05/30/[address] [facility] Maternal and Ground Floor [address] [place] [address] Сергей Carbajal MD [address] [place] [address] Social History Tobacco Use Types [...] on filedocumented in this encounter Care Teams Extended Day Teacher Relationship Specialty Start Date End Date Charlie Mera MD NO ADDRESS ON FILE PCP - General 09/19/05 documented as of this encounter
--- OUTSIDE RECORDS SUMMARY | 2024-12-29 01:00 | XMS_ITS | Encounter Summary ---
Author Organization [employer] Address [address] [place] [address] Care Team Providers Care Air Brush Operator Name Role Phone Charlie Mera MD Primary Care Provider Mary tapia Encounter Details Date Type Department Care Team (Latest Contact Info) Description 04/28/2005 [facility]patient [facility] Pratik Asencio, [address] [facility] [address] [address] OTHER CURR COND-ANTEPARTUM (Primary Dx) Social History Tobacco Use Types Packs/Day Years Used Date Smoking Tobacco: Never Assessed Comments Unknown Sex and Gender Information Value Date Recorded Sex Assigned at Not on file Legal Sex Female 4:21 AM IDEA MAN Gender Identity Not on file Sexual Orientation Not on file documented as of this encounter Plan of Treatment Not on file documented as of this encounter Visit Diagnoses Diagnosis Other current maternal conditions classifiable elsewhere, antepartum- Primary documented in this encounter Care Teams Air Brush Operator Relationship Specialty Start Date End Date Charlie Mera MD NO ADDRESS ON FILE PCP - General 09/19/05 documented as of this encounter
--- OUTSIDE RECORDS SUMMARY | 2024-12-29 01:00 | XMS_ITS | Encounter Summary ---
Author Organization [facility] Address [address] [place] [address] Care Team Providers Care Lock Up Worker Name Role Phone Charlie Mera MD Primary Care Provider Unavailab le Encounter Details Date Type Department Care Team (Late st Contact Info) Description 08/24/2004 Outpatient Historical [facility] [address] [place] [id number] Jb Blanco MD [address] [phone] Social History Tobacco Use Types Packs/Day Years Used Date Smoking Tobacco: Never Assessed Comments Unknown Sex and Gender Information Value Date Recorded Sex Assigned at Not on file Legal Sex Female 4:21 AM WOOD PATTERNMAKER APPRENTICE Gender Identity Not on file Sexual Orientation Not on file documented as of this encounter Plan of Treatment Not on file documented as of this encounter Visit Diagnoses Not on filedocumented in this encounter Care Teams Lock Up Worker Relationship Specialty Start Date End Date Charlie Mera MD NO ADDRESS ON FILE PCP - General 09/19/05 documented as of this encounter
--- OUTSIDE RECORDS SUMMARY | 2024-12-29 01:00 | XMS_ITS | Encounter Summary ---
Author Organization [employer] Address [address] [place] [address] Care Team Providers Care Roulette Dealer Name Role Phone Charlie Mera MD Primary Care Provider Mary tapia Encounter Details Date Type Department Care Team (Latest Contact Info) Description 04/18/2005 Outpatient Historical [facility] PATIENT IN A BED Сергей Carbajal MD [address] [place] [address] Pratik Asencio DO [address] [facility] [address] [place] [address] OTHER CURR COND-ANTEPARTUM (Primary Dx) Social History Tobacco Use Types Packs/Day Years Used Date Smoking Tobacco: Never Assessed Comments Unknown Sex and Gender Information Value Date Recorded Sex Assigned at Not on file Legal Sex Female 4:21 AM PROGRAM DIRECTOR Gender Identity Not on file Sexual [...] WITH DIFFERENTIAL (04/18/2005 9:40 PM CDT) Pathologist [facility] NEUTROPHILS 73(H) 45 - 70 [...] ORDERABLES Final Re sult Performing Organization Address [facility] de Phone Number INTERFACE SYSTEM Refer to clinic/hospital department * (ABNORMAL) CBC WITH DIFFERENTIAL (04/18/2005 9:40 PM CDT) [facility] WBC 11.4(H) 4.0 - 9.8 K/uL INTERFACE [...] ORDERABLES Final Re sult Performing Organization Address [facility] Co de Phone Number INTERFACE SYSTEM [...] Negative INTERFACE SYSTEM 04/18/2005 8:53 PM CDT rPatik Asencio DO URINE ORDERABLES Final Result Performing Organization Address [facility] Phone Number INTERFACE SYSTEM Refer [...] URINE ORDERABLES Final Result Performing Organization Address [facility] Phone Number INTERFACE SYSTEM Refer to clinic/hospital department documented in this encounter Visit Diagnoses Diagnosis Other current maternal conditions classifiable elsewhere, antepartum- Primary documented in this encounter Care Teams Roulette Dealer Relationship Specialty Start Date End Date Charlie Mera MD NO ADDRESS ON FILE PCP - General 09/19/05 documented as of this encounter
--- OUTSIDE RECORDS SUMMARY | 2024-12-29 01:00 | XMS_ITS | Encounter Summary ---
Author Organization [facility] Address [address] [place] [address] Care Team Providers Care Paid Search Specialist Name Role Phone Charlie Mera MD Primary Care Provider Unavailab le Encounter Details Date Type Department Care Team (Late st Contact Info) Description 06/05/2005 Outpatient Historical [facility] Maternal and Ground Floor [address] [place] [address] Pratik Asencio DO [address] [facility] [address] [place], [place] [id number] Social History Tobacco Use Types Packs/Day Years Used Date Smoking Tobacco: Never Assessed Comments Unknown Sex and Gender Information Value Date Recorded Sex Assigned at Not on file Legal Sex Female 4:21 AM A/C TECHNICIAN Gender Identity Not on file Sexual Orientation Not on file documented as of this encounter Plan of Treatment Not on file documented as of this encounter Visit Diagnoses Not on filedocumented in this encounter Care Teams Paid Search Specialist Relationship Specialty Start Date End Date Charlie Mera MD NO ADDRESS ON FILE PCP - General 09/19/05 documented as of this encounter
--- OUTSIDE RECORDS SUMMARY | 2024-12-29 01:00 | XMS_ITS | Encounter Summary ---
Author Organization [employer] Address [address] [place] [address] Care Team Providers Care Skein Yarn Dyer Name Role Phone Charlie Mera MD Primary [...] on file Legal Sex Female 4:21 AM EXTRACTOR AND WRINGER OPERATOR Gender Identity Not on file Sexual [...] Primary documented in this encounter Care Teams Skein Yarn Dyer Relationship Specialty Start Date End Date Charlie Mera MD NO ADDRESS ON FILE PCP - General 09/19/05 documented as of this encounter
--- OUTSIDE RECORDS SUMMARY | 2024-12-29 01:00 | XMS_ITS | Encounter Summary ---
Author Organization [employer] Address [address] [place] [address] Care Team Providers Care Bed Setter Name Role Phone Charlie Mera MD Primary Care Provider Unavailab le Encounter Details Date Type Department Care Team (Late st Contact Info) Description 06/18/2005 Outpatient Historical [facility] Maternal and Ground Floor [address] [place] [address] Jackson Theodore MD [address] [facility] [place] [address] Social History Tobacco Use Types Packs/Day Years Used Date Smoking Tobacco: Never Assessed Comments Unknown Sex and Gender Information Value Date Recorded Sex Assigned at Not on file Legal Sex Female 4:21 AM MACHINIST BRAKE Gender Identity Not on file Sexual Orientation Not on file documented as of this encounter Plan of Treatment Not on file documented as of this encounter Visit Diagnoses Not on filedocumented in this encounter Care Teams Bed Setter Relationship Specialty Start Date End Date Charlie Mera MD NO ADDRESS ON FILE PCP - General 09/19/05 documented as of this encounter
--- OUTSIDE RECORDS SUMMARY | 2024-12-29 01:00 | XMS_ITS | Encounter Summary ---
Author Organization [employer] Address [address] [place] [address] Care Team Providers Care Tool Design Engineer Name Role Phone Charlie Mera MD Primary Care Provider Mary tapia Encounter Details Date Type Department Care Team (Latest Contact Info) Description 03/27/2005 Outpatient Historical [facility] Pratik Asencio, [address] [facility] [address] [address] RENAL DIS NOS-ANTEPARTUM (Primary Dx) Social History Tobacco Use Types Packs/Day Years Used Date Smoking Tobacco: Never Assessed Comments Unknown Sex and Gender Information Value Date Recorded Sex Assigned at Not on file Legal Sex Female 4:21 AM LINE PATROLMAN Gender Identity Not on file Sexual Orientation Not on file documented as of this encounter Plan of Treatment Not on file documented as of this encounter Visit Diagnoses Diagnosis 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
--- OUTSIDE RECORDS SUMMARY | 2024-12-29 01:00 | XMS_ITS | Encounter Summary ---
Author Organization [facility] Address [address] [place] [address] Care Team Providers Care Toxicology Supervisor Name Role Phone Charlie Mera MD Primary Care Provider Mary le Encounter Details Date Type Department Care Team (Late st Contact Info) Description 08/17/2004 Outpatient Historical [facility] Blanco, Jb Garcia MD [address] [facility] [address] [address] [place] [address] PREG W HX OF INFERTILITY (Primary Dx) Social History Tobacco Use Types Packs/Day Years Used Date Smoking Tobacco: Never Assessed Comments Unknown Sex and Gender Information Value Date Recorded Sex Assigned at Not on file Legal Sex Female 4:21 AM ORTHOPHOTOGRAPHY TECHNICIAN Gender Identity Not on file Sexual Orientation Not on file documented as of this encounter Plan of Treatment Not on file documented as of this encounter Visit Diagnoses Diagnosis with history of infertility- Primary documented in this encounter Care Teams Toxicology Supervisor Relationship Specialty Start Date End Date Charlie Mera MD NO ADDRESS ON FILE PCP - General 09/19/05 documented as of this encounter
--- OUTSIDE RECORDS SUMMARY | 2024-12-29 01:00 | XMS_ITS ---
Author Organization [facility] Address [address] [place] [address] Care Team Providers Care Cut Off Operator Scorer Name Role Phone Shelton Kraus Primary Care [...] Active Encounters Encounter Location Date Provider Diagnosis [address] [place] [address] 06/16/2024 Shelton Kraus Insomnia G47.00 and Panic [...] * Anh ZENDEJASDOB: 1 (53 yo F)Acc No.[id number]:06/16/2024 Patient: Satnam SIDDIQUIara :1970 A ge:53 Y S ex:Female Address:[address] [place] [address] [place], [address] * Refills Increase Eszopiclone Tablet, 2 MG, [...] Date: Generated for Bowen danielle/Ariadne/Brodyitting on: 0 12/29/2024 01:00 AM CDT
--- OUTSIDE RECORDS SUMMARY | 2024-12-29 01:00 | XMS_ITS | Encounter Summary ---
Author Organization [facility] Address [address] [place] [address] Care Team Providers Care Food Specialist Name Role Phone Charlie Mera MD Primary Care Provider Unavailab le Encounter Details Date Type Department Care Team (Late st Contact Info) Description 08/31/2004 Outpatient Historical [facility] Maternal and Ground Floor [address] [place] [address] Gwendolyn Mcdonnell MD [address] [place] [address] Social History Tobacco Use Types Packs/Day Years Used Date Smoking Tobacco: Never Assessed Comments Unknown Sex and Gender Information Value Date Recorded Sex Assigned at Not on file Legal Sex Female 4:21 AM TECHNICAL ASST Gender Identity Not on file Sexual Orientation [...]
--- OUTSIDE RECORDS SUMMARY | 2024-12-29 01:00 | XMS_ITS | Encounter Summary ---
Author Organization [facility] Address [address] [place] [address] Care Team Providers Care Junior Automation Engineer Name Role Phone Charlie Mera MD Primary Care Provider Unavailab le Encounter Details Date Type Department Care Team (Late st Contact Info) Description 03/27/2005 Outpatient Historical [facility] Maternal and Ground Floor [address] [place] [address] Pratik Asencio DO [address] [facility] [address] [place], [place] [id number] Social History Tobacco Use Types Packs/Day Years Used Date Smoking Tobacco: Never Assessed Comments Unknown Sex and Gender Information Value Date Recorded Sex Assigned at Not on file Legal Sex Female 4:21 AM POULTRY FARMER MEAT Gender Identity Not on file Sexual Orientation Not on file documented as of this encounter Plan of Treatment Not on file documented as of this encounter Visit Diagnoses Not on filedocumented in this encounter Care Teams Junior Automation Engineer Relationship Specialty Start Date End Date Charlie Mera MD NO ADDRESS ON FILE PCP - General 09/19/05 documented as of this encounter
--- OUTSIDE RECORDS SUMMARY | 2024-12-29 01:00 | XMS_ITS | Encounter Summary ---
Author Organization [employer] Address [address] [place] [address] Care Team Providers Care Burr Mill Operator Name Role Phone Charlie Mera MD Primary Care Provider Mary le Encounter Details Date Type Department Care Team (Late st Contact Info) Description 08/22/2004 Outpatient Historical [facility] [address] [facility] [address] [address] [place] [address] SCREENING NEC (Primary Dx) Social History Tobacco Use Types Packs/Day Years Used Date Smoking Tobacco: Never Assessed Comments Unknown Sex and Gender Information Value Date Recorded Sex Assigned at Not on file Legal Sex Female 4:21 AM DISBURSING AGENT Gender Identity Not on file Sexual Orientation Not on file documented as of this encounter Plan of Treatment Not on file documented as of this encounter Visit Diagnoses Diagnosis Other screening- Primary Other specified screening documented in this encounter Care Teams Burr Mill Operator Relationship Specialty Start Date End Date Charlie Mera MD NO ADDRESS ON FILE PCP - General 09/19/05 documented as of this encounter
--- OUTSIDE RECORDS SUMMARY | 2024-12-29 01:01 | XMS_ITS | Encounter Summary ---
Author Organization [employer] Address [address] [place] [address] Care Team Providers Care Outsole Tacker Name Role Phone Charlie Mera MD Primary Care Provider Mary tapia Encounter Details Date Type Department Care Team (Latest Contact Info) Description 09/01/2004 Outpatient Historical [facility] PATIENT IN A BED Pratik Asencio, DO [address] [facility] [address] [address] PREG COMPL NEC-ANTEPART (Primary Dx) Social History Tobacco Use Types Packs/Day Years Used Date Smoking Tobacco: Never Assessed Comments Unknown Sex and Gender Information Value Date Recorded Sex Assigned at Not on file Legal Sex Female 4:21 AM DIRECTOR OF LAND Gender Identity Not on file Sexual Orientation Not on file documented as of this encounter Plan of Treatment Not on file documented as of this encounter Visit Diagnoses Diagnosis Other specified complication, antepartum(646.83)- Primary Other specified complication, antepartum documented in this encounter Care Teams Outsole Tacker Relationship Specialty Start Date End Date Charlie Mera MD NO ADDRESS ON FILE PCP - General 09/19/05 documented as of this encounter
--- OUTSIDE RECORDS SUMMARY | 2024-12-29 01:01 | XMS_ITS | Encounter Summary ---
Author Organization [employer] Address [address] [place] [address] Care Team Providers Care Field Contact Technician Name Role Phone Charlie Mera MD Primary Care Provider Mary le Encounter Details Date Type Department Care Team (Late st Contact Info) Description 08/03/2004 Outpatient Historical [facility]anco MD [address] [facility] [address] [address] [place] [address] SUPERVIS OTHER NORMAL PREG (Primary Dx) Social History Tobacco Use Types Packs/Day Years Used Date Smoking Tobacco: Never Assessed Comments Unknown Sex and Gender Information Value Date Recorded Sex Assigned at Not on file Legal Sex Female 4:21 AM STARBUCKS CLERK Gender Identity Not on file Sexual Orientation Not on file documented as of this encounter Plan of Treatment Not on file documented as of this encounter Visit Diagnoses Diagnosis Supervision of other normal - Primary documented in this encounter Care Teams Field Contact Technician Relationship Specialty Start Date End Date Charlie Mera MD NO ADDRESS ON FILE PCP - General 09/19/05 documented as of this encounter
--- OUTSIDE RECORDS SUMMARY | 2024-12-29 01:01 | XMS_ITS | Encounter Summary ---
Author Organization [employer] Address [address] [place] [address] Care Team Providers Care Marketing Editor Name Role Phone Charlie Mera MD Primary Care Provider Mary tapia Encounter Details Date Type Department Care Team (Latest Contact Info) Description 09/12/2004 Outpatient Historical [facility], [address] Gunner Alvarez MD [facility] [address] [address] PREG STATE, INCIDENTAL (Primary Dx) Social History Tobacco Use Types Packs/Day Years Used Date Smoking Tobacco: Never Assessed Comments Unknown Sex and Gender Information Value Date Recorded Sex Assigned at Not on file Legal Sex Female 4:21 AM CUSTOMER ENGAGEMENT ANALYST Gender Identity Not on file Sexual Orientation Not on file documented as of this encounter Plan of Treatment Not on file documented as of this encounter Visit Diagnoses Diagnosis state, incidental- Primary documented in this encounter Care Teams Marketing Editor Relationship Specialty Start Date End Date Charlie Mera MD NO ADDRESS ON FILE PCP - General 09/19/05 documented as of this encounter
--- OUTSIDE RECORDS SUMMARY | 2024-12-29 01:01 | XMS_ITS | Encounter Summary ---
Author Organization [facility] Address [address] [place] [address] Care Team Providers Care Warehouse Record Clerk Name Role Phone Charlie Mera MD Primary Care Provider Unavailab le Encounter Details Date Type Department Care Team (Late st Contact Info) Description 09/04/2004 Outpatient Historical [facility] Maternal and Ground Floor [address] [place] [address] Gwendolyn Mcdonnell MD [address] [place] [address] Social History Tobacco Use Types Packs/Day Years Used Date Smoking Tobacco: Never Assessed Comments Unknown Sex and Gender Information Value Date Recorded Sex Assigned at Not on file Legal Sex Female 4:21 AM AUTOMOBILE BRAKES BONDER Gender Identity Not on file Sexual Orientation Not on file documented as of this encounter Plan of Treatment Not on file documented as of this encounter Visit Diagnoses Not on filedocumented in this encounter Care Teams Warehouse Record Clerk Relationship Specialty Start Date End Date Charlie Mera MD NO ADDRESS ON FILE PCP - General 09/19/05 documented as of this encounter
--- OUTSIDE RECORDS SUMMARY | 2024-12-29 01:01 | XMS_ITS | Encounter Summary ---
Author Organization [employer] Address [address] [place] [address] Care Team Providers Care Packing Line Operator Name Role Phone Charlie Mera MD Primary Care Provider Unavailab le Encounter Details Date Type Department Care Team (Late st Contact Info) Description 07/21/2004 Outpatient Historical [facility] Maternal and Ground Floor [address] [place] [address] Elie Kasper MD NO ADDRESS ON FILE Social History Tobacco Use Types Packs/Day Years Used Date Smoking Tobacco: Never Assessed Comments Unknown Sex and Gender Information Value Date Recorded Sex Assigned at Not on file Legal Sex Female 4:21 AM CONTINUOUS MINER OPERATOR Gender Identity Not on file Sexual Orientation Not on file documented as of this encounter Plan of Treatment Not on file documented as of this encounter Visit Diagnoses Not on filedocumented in this encounter Care Teams Packing Line Operator Relationship Specialty Start Date End Date Charlie Mera MD NO ADDRESS ON FILE PCP - General 09/19/05 documented as of this encounter
--- OUTSIDE RECORDS SUMMARY | 2024-12-29 01:01 | XMS_ITS | Encounter Summary ---
Author Organization [facility] [facility] Address [address] [place] [address] Care Team Providers Care Dry Clipper Tender Name Role Phone Charlie Mera MD Primary Care Provider Unavailab le Encounter Details Date Type Department Care Team (Latest Contact Info) Description 08/03/2004 Outpatient Historical [facility] [place] BLDG Conversion, History ELEV BL PRES W/O HYPERTN (Primary Dx) Social History Tobacco Use Types Packs/Day Years Used Date Smoking Tobacco: Never Assessed Comments Unknown Sex and Gender Information Value Date Recorded Sex Assigned at Not on file Legal Sex Female 4:21 AM MEDICAL SECRETARY TEACHER Gender Identity Not on file Sexual Orientation Not on file documented as of this encounter Plan of Treatment Not on file documented as of this encounter Visit Diagnoses Diagnosis Elevated blood pressure reading without diagnosis of hypertension- Primary documented in this encounter Care Teams Dry Clipper Tender Relationship Specialty Start Date End Date Charlie Mera MD NO ADDRESS ON FILE PCP - General 09/19/05 documented as of this encounter
--- OUTSIDE RECORDS SUMMARY | 2024-12-29 01:01 | XMS_ITS | Encounter Summary ---
Author Organization [facility] Address [address] [place] [address] Care Team Providers Care Field Service Technician Poultry Name Role Phone Charlie Mera MD Primary Care Provider Unavail le Encounter Details Date Type Department Care Team (Late st Contact Info) Description 09/01/2004 Outpatient Historical [facility] [address] [facility] [place] [address] [place] [address] [address] [place] [address] Social History Tobacco Use Types Packs/Day Years Used Date Smoking Tobacco: Never Assessed Comments Unknown Sex and Gender Information Value Date Recorded Sex Assigned at Not on file Legal Sex Female 4:21 AM APPOINTMENT SETTER Gender Identity Not on file Sexual Orientation Not on file documented as of this encounter Plan of Treatment Not on file documented as of this encounter Visit Diagnoses Not on filedocumented in this encounter Care Teams Field Service Technician Poultry Relationship Specialty Start Date End Date Charlie Mera MD NO ADDRESS ON FILE PCP - General 09/19/05 documented as of this encounter
--- OUTSIDE RECORDS SUMMARY | 2024-12-29 01:01 | XMS_ITS | Encounter Summary ---
Author Organization [facility] Address [address] [place] [address] Care Team Providers Care Hydration Plant Operator Name Role Phone Charlie Mera MD Primary Care Provider Mary tapia Encounter Details Date Type Department Care Team (Late st Contact Info) Description 07/21/2004 Outpatient Historical [facility] Jb Blanco MD [address] [facility] [address] [address] [place] [address] PLACENTA PREVIA-ANTEPART (Primary Dx) Social History Tobacco Use Types Packs/Day Years Used Date Smoking Tobacco: Never Assessed Comments Unknown Sex and Gender Information Value Date Recorded Sex Assigned at Not on file Legal Sex Female 4:21 AM RESEARCH CENTER PARTNER Gender Identity Not on file Sexual Orientation Not on file documented as of this encounter Plan of Treatment Not on file documented as of this encounter Visit Diagnoses Diagnosis Placenta previa without hemorrhage, antepartum- Primary documented in this encounter Care Teams Hydration Plant Operator Relationship Specialty Start Date End Date Charlie Mera MD NO ADDRESS ON FILE PCP - General 09/19/05 documented as of this encounter
--- OUTSIDE RECORDS SUMMARY | 2024-12-29 01:01 | XMS_ITS | Encounter Summary ---
Author Organization [facility] Address [address] [place] [address] Care Team Providers Care Heavy Repairer Name Role Phone Charlie Mera MD Primary Care Provider Unavailab le Encounter Details Date Type Department Care Team (Late st Contact Info) Description 09/05/2004 Outpatient Historical [facility] [address] [place] [address] Gunner Alvarez MD [address] [facility] [address] [facility] [place] [address] Social History Tobacco Use Types Packs/Day Years Used Date Smoking Tobacco: Never Assessed Comments Unknown Sex and Gender Information Value Date Recorded Sex Assigned at Not on file Legal Sex Female 4:21 AM BEDSPREAD FOLDER Gender Identity Not on file Sexual Orientation Not on file documented as of this encounter Plan of Treatment Not on file documented as of this encounter Visit Diagnoses Not on filedocumented in this encounter Care Teams Heavy Repairer Relationship Specialty Start Date End Date Charlie Mera MD NO ADDRESS ON FILE PCP - General 09/19/05 documented as of this encounter
--- OUTSIDE RECORDS SUMMARY | 2024-12-29 01:01 | XMS_ITS | Encounter Summary ---
Author Organization [facility] Address [address] [place] [address] Care Team Providers Care Bobbin Washer Name Role Phone Charlie Mera MD Primary Care Provider Unavailab le Encounter Details Date Type Department Care Team (Late st Contact Info) Description 07/20/2004 Outpatient Historical [facility] [address] [place] [address] Burak Ortiz MD NO ADDRESS ON FILE Social History Tobacco Use Types Packs/Day Years Used Date Smoking Tobacco: Never Assessed Comments Unknown Sex and Gender Information Value Date Recorded Sex Assigned at Not on file Legal Sex Female 4:21 AM CAR MANAGER Gender Identity Not on file Sexual Orientation Not on file documented as of this encounter Plan of Treatment Not on file documented as of this encounter Visit Diagnoses Not on filedocumented in this encounter Care Teams Bobbin Washer Relationship Specialty Start Date End Date Charlie Mera MD NO ADDRESS ON FILE PCP - General 09/19/05 documented as of this encounter
--- OUTSIDE RECORDS SUMMARY | 2024-12-29 01:01 | XMS_ITS | Encounter Summary ---
Author Organization [facility] Address [address] [place] [address] Care Team Providers Care Engine Lathe Operator Name Role Phone Charlie Mera MD Primary Care Provider Mary tapia Encounter Details Date Type Department Care Team (Latest Contact Info) Description 07/22/2004 Outpatient Historical [facility] Ortiz, Burak Paredes MD NO ADDRESS ON FILE PREG STATE, INCIDENTAL (Primary Dx) Social History Tobacco Use Types Packs/Day Years Used Date Smoking Tobacco: Never Assessed Comments Unknown Sex and Gender Information Value Date Recorded Sex Assigned at Not on file Legal Sex Female 4:21 AM AEROPHYSICS ENGINEER Gender Identity Not on file Sexual Orientation Not on file documented as of this encounter Plan of Treatment Not on file documented as of this encounter Visit Diagnoses Diagnosis state, incidental- Primary documented in this encounter Care Teams Engine Lathe Operator Relationship Specialty Start Date End Date Charlie Mera MD NO ADDRESS ON FILE PCP - General 09/19/05 documented as of this encounter
--- OUTSIDE RECORDS SUMMARY | 2024-12-29 01:01 | XMS_ITS | Encounter Summary ---
Author Organization [facility] Address 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
--- OUTSIDE RECORDS SUMMARY | 2024-12-29 01:01 | XMS_ITS | Encounter Summary ---
Author Organization [facility] Address 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
--- OUTSIDE RECORDS SUMMARY | 2024-12-29 01:01 | XMS_ITS | Clinical Summary ---
Author Organization [facility] Address [address] [place] [address] Care Team Providers Care Aeronautical Engineer Name Role Phone Unavailable Primary Care Provider [...]
--- OUTSIDE RECORDS SUMMARY | 2024-12-29 01:01 | XMS_ITS | Patient Health Record ---
Author Organization [facility] Address [address] [place] [address] Care Team Providers Care Shank Cutter Name Role Phone Shelton Kraus Primary Care [...] dose, unseen in external rx hx Active Topiramate 100 MG TAKE 1 AND 1/2 TABLETS BY MOUTH EVERY DAY AT BEDTIME for 90 Active Citalopram Hydrobromide 40 MG TAKE 1 TABLET BY MOUTH EVERY DAY for 90 Client states she really needs to at least pick Abilify today due to being out for several days. Active Social History Tobacco Use: Social History Observation Description Date Details (start date - stop date) Light tobacco s moker NA - NA Tobacco Control (Standard) Question [...] Work history/current job doesn't work, worked a [employer] for a few months , worked at [employer] for about 13 years, she is on [...] Work history/current job doesn't work, worked a [employer] for a few months , worked at [employer] for about 13 years, she is on [...] Work history/current job doesn't work, worked a [employer] for a few months , worked at [employer] for about 13 years, she is on [...] Work history/current job doesn't work, worked a [employer] for a few months , worked at [employer] for about 13 years, she is on [...] Work history/current job doesn't work, worked a [employer] for a few months , worked at [employer] for about 13 years, she is on [...] Work history/current job doesn't work, worked a [employer] for a few months , worked at [employer] for about 13 years, she is on [...] Work history/current job doesn't work, worked a [employer] for a few months , worked at [employer] for about 13 years, she is on [...] Work history/current job doesn't work, worked a [employer] for a few months , worked at [employer] for about 13 years, she is on [...] Work history/current job doesn't work, worked a [employer] for a few months , worked at [employer] for about 13 years, she is on [...] Work history/current job doesn't work, worked a [employer] for a few months , worked at [employer] for about 13 years, she is on [...] Work history/current job doesn't work, worked a [employer] for a few months , worked at [employer] for about 13 years, she is on [...] Work history/current job doesn't work, worked a [employer] for a few months , worked at [employer] for about 13 years, she is on [...] Work history/current job doesn't work, worked a [employer] for a few months , worked at [employer] for about 13 years, she is on [...] Work history/current job doesn't work, worked a [employer] for a few months , worked at [employer] for about 13 years, she is on [...] Work history/current job doesn't work, worked a [employer] for a few months , worked at [employer] for about 13 years, she is on [...] Work history/current job doesn't work, worked a [employer] for a few months , worked at [employer] for about 13 years, she is on disability Marital status was 8 years, 3 children, 19, 11, 10 /legal/probation denies Problems Problem Type SNOMED Code ICD Code Onset Dates Problem Status W/U Status Risk Notes Problem 98167114 Bipolar II disorder (F31.81) Active confirmed Problem Insomnia (042349128) Insomnia (G47.00) Active confirmed Problem 18169709 Anorexia nervosa (F50.00) Active confirmed Problem 12110774 Severe episode of recurrent major depressive disorder, 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) Active confirmed Problem 100757392 Panic disorder [episodic paroxysmal anxiety] (F41.0) Active confirmed Encounters Encounter Location Date Provider Diagnosis [address] [address] 01/28/2024 Shelton Kraus Bipolar II disorder F31.81 ; Panic disorder [episodic paroxysmal anxiety] F41.0 and Insomnia G47.[address] [address] 05/13/2024 Shelton Kraus Bipolar II disorder F31.81 ; Insomnia G47.00 and Panic disorder [episodic paroxysmal anxiety] F41.[address] [address] 08/10/2024 Shelton Kraus Bipolar II disorder F31.81 ; Panic disorder [episodic paroxysmal anxiety] F41.0 and Insomnia G47.[address] [address] 11/11/2024 Shelton Kraus Bipolar II disorder F31.81 ; Panic disorder [episodic paroxysmal anxiety] F41.0 and Insomnia G47.[address] [address] 01/08/2024 Shelton Kraus Bipolar II disorder F31.[address] [address] 03/24/2024 Shelton Kraus [address] [address] 04/28/2024 Shelton Kraus Bipolar II disorder F31.[address] [address] 06/16/2024 Shelton Kraus Insomnia G47.00 and Panic [...] number to the 24-hour crisis line at [facility]. Questions addressed. Client verbalized understanding [...] number to the 24-hour crisis line at [facility]. Questions addressed. Client verbalized understanding [...] number to the 24-hour crisis line at [facility]. Questions addressed. Client verbalized understanding [...] number to the 24-hour crisis line at [facility]. Questions addressed. Client verbalized understanding of all information and is agreeable to treatment plan. Client doing well, no tx plan changes needed at this time. 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
--- OUTSIDE RECORDS SUMMARY | 2024-12-29 01:01 | XMS_ITS | Data Portability ---
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 These risks 3in 1000-3 in [address]. She is agreeable to proceed with procedure. [...] sudden . These risks 3in 1000-3 in [address]. She is agreeable to proceed with procedure. [...] Modified Time Details Appointments ANY 30 2024 01:15P SWATI Chan Not available Not available Not available Lab lipid panel, serum 2023 024 [facility], [address] [facility], [address], [place], [address], 09/07/2024 07:51:14 lipid panel, serum 2023 024 [facility] [address] [place], [address], 07/08/2024 07:54:18 Referral cardiolo gist referral - needs surgery clearanc e/stress test 2023 024 [facility] Cardiology [facility], [address] [facility], [address], [place], [address], 09/17/2024 10:37:35 Procedures lexiscan cardioli te stress test (PROC) 2023 024 [facility] Nuclear Medicine, [address] [facility], [place], [address], 10/29/2024 14:36:55 Surgeries left heart catheter ization (SURG) 2023 024 [facility] Luis Schulte Shpigel, [address] [facility], [facility] [address], [place], [address], 08/25/2024 08:12:39 Imaging None recorded . Medication Orders fluticas one propiona te 50 mcg/actu ation nasal spray,pan spension 2022 023 [id number], [address], [place], [id number], 06/05/2024 13:22:06 Patient TargetsNo targets recorded. Patient Instructions Encounter Date Encounter Id Patient Instructions Last Modified By Organization Details Last Modified Time 07/31/2023 [id number] A healthy lifestyle: care instructions [facility] Not available 07/31/2023 15:21:29 06/04/2024 [id number] A healthy lifestyle: care [facility] Not available 06/04/2024 22:51:45 Reason for Referral [employer] Referral for El ectrocardiogram abnormal needs surgery clearance/stress test Referring Physician: Pebbles Salmeron, Roof Bolter, Encounter Date: 06/04/2024 Results Created Date Observation Date Name Description Value Unit Range Abnormal Flag Note LastModifiedBy Organization Detail LastModifiedTime 09/14/20 24 09/14/2024 LIPID PANEL cholesterol 231 mg/dL <[address] [facility] (Lab) [address], [place], [address], 09/14/2024 10:38:13 09/14/20 24 09/14/2024 LIPID PANEL triglyceride 246 mg/dL <[address] [facility] (Lab) [address], [place], [address], 09/14/2024 10:38:13 09/14/20 24 09/14/2024 LIPID PANEL HDL cholesterol 61 mg/dL >40.[address] [facility] (Lab) [address], [place], [address], 09/14/2024 10:38:13 09/14/20 24 09/14/2024 LIPID PANEL LDL calculated 121 mg/dL <[address] [facility] (Lab) [address], [place], [address], 09/14/2024 10:38:13 09/14/20 24 09/14/2024 LIPID PANEL non HDL cholesterol 170 mg/dL <[address] [facility] (Lab) [address], [place], [address], 09/14/2024 10:38:13 09/14/20 24 09/14/2024 LIPID PANEL chol/HDL ratio 3.8 0.0-4. 5 Not Available [facility] [address], [place], [address], 09/14/2024 10:38:13 09/14/20 24 09/14/2024 LIPID PANEL VLDL 49 mg/dL 5-55 Not Available [facility] (Lab) [address], [place], [address], 09/14/2024 10:38:13 09/14/20 24 09/14/2024 LIPID PANEL [...] <40 --- LDL >=160 >=130 Not Available [facility] (Lab) [address], [place], [address], 09/14/2024 10:38:13 09/14/20 24 09/14/2024 Lipid 1996 panel - Serum or Plasm a cholesterol [mass/volume ] in serum or plasma 231 text: <200 mg/dL high BERLIN STERO L 231 (H) <200 MG/DL 09/14 9:38 AM [employer] [facility] Not Available Not Available 10/29/2024 14:41:48 09/14/20 24 09/14/2024 Lipid 1996 panel - Serum or Plasm a triglyceride [mass/volume ] in serum or plasma 246 text: <150 mg/dL high TRIGL YCERI RAMANA 246 (H) <150 MG/DL 09/14 9:38 AM [facility] Not Available Not Available 10/29/2024 [...] LIPID INTER PRETA TION 09/14 9:38 AM [facility] Not Available Not Available 10/29/2024 14:41:48 09/14/20 24 09/14/2024 Lipid 1996 panel - Serum or Plasm a interpretati on and review of laboratory results Abnorm al Not Available Not Available 14:41:48 11/07/19 25 11/07/2024 MAGNE SIUM magnesium 2.3 mg/dL 1.8-2. 4 Not Available [facility] (Lab) [place], [address], 11/07/2024 11:25:14 11/07/19 25 11/07/2024 RENAL FUNCT ION PANEL glucose 129 mg/dL 70-99 high Not Available [facility] (Lab) [place], [address], 11/07/2024 11:25:16 11/07/19 25 11/07/2024 RENAL FUNCT ION PANEL BUN 25 mg/dL 7-18 high Not Available [facility] (Lab) [place], [address], 11/07/2024 11:25:16 11/07/19 25 11/07/2024 RENAL FUNCT ION PANEL creatinine 1.18 mg/dL 0.55-1 .02 high Not Available [facility] (Lab) [place], [address], 11/07/2024 11:25:16 11/07/19 25 11/07/2024 RENAL FUNCT ION PANEL sodium 143 mmol/ L 136-14 5 Not Available [facility] (Lab) [place], [address], 11/07/2024 11:25:16 11/07/19 25 11/07/2024 RENAL FUNCT ION PANEL potassium 3.8 mmol/ L 3.5-5. 1 Not Available [facility] (Lab) [address] [place], [address], 11/07/2024 11:25:16 11/07/19 25 11/07/2024 RENAL FUNCT ION PANEL chloride 112 mmol/ L 97-115 Not Available [facility] (Lab) [address] [place], [address], 11/07/2024 11:25:16 11/07/19 25 11/07/2024 RENAL FUNCT ION PANEL total CO2 26.4 mmol/ L 21-32 Not Available [facility] (Lab) [address], [place], [address], 11/07/2024 11:25:16 11/07/19 25 11/07/2024 RENAL FUNCT ION PANEL calcium 9.5 mg/dL 8.5-10 .1 Not Available [facility] (Lab) [place], [address], 11/07/2024 11:25:16 11/07/19 25 11/07/2024 RENAL FUNCT ION PANEL albumin 3.5 g/dL 3.4-5. 0 Not Available [facility] (Lab) [place], [address], 11/07/2024 11:25:16 11/07/19 25 11/07/2024 RENAL FUNCT ION PANEL phosphorus 3.2 mg/dL 2.5-4. 9 Not Available [facility] (Lab) [address] [place], [address], 11/07/2024 11:25:16 11/07/19 25 11/07/2024 RENAL FUNCT ION PANEL anion gap 4.6 mmol/ L 2-10 Not Available [facility] (Lab) [address] [place], [address], 11/07/2024 11:25:16 11/07/19 25 11/07/2024 RENAL FUNCT ION PANEL BUN creatinine ratio 21.2 6-26 Not Available [facility] (Lab) [address] [place], [address], 11/07/2024 11:25:16 11/07/19 25 11/07/2024 RENAL FUNCT [...] latin g drug doses . Not Available [facility] (Lab) [address] [place], [address], 11/07/2024 11:25:16 11/07/19 25 11/07/2024 UA WITH MICRO specimen type URINE CLEAN CATCH Not Available [facility] (Lab) [address] [place], [address], 11/07/2024 12:14:00 11/07/19 25 11/07/2024 UA WITH MICRO color LIGHT YELLOW Not Available [facility] (Lab) [place], [address], 11/07/2024 12:14:00 11/07/19 25 11/07/2024 UA WITH MICRO clarity CLEAR Not Available [facility] (Lab) [place], [address], 11/07/2024 12:14:00 11/07/19 25 11/07/2024 UA WITH MICRO specific gravity 1.015 1.001- 1.030 Not Available [facility] (Lab) [address] [place], [address], 11/07/2024 12:14:00 11/07/19 25 11/07/2024 UA WITH MICRO pH, urine 6.5 5.0-9. 0 Not Available [facility] (Lab) [place], [address], 11/07/2024 12:14:00 11/07/19 25 11/07/2024 UA WITH MICRO leukocytes 250 neg abnormal Not Available [facility] (Lab) [place], [address], 11/07/2024 12:14:00 11/07/19 25 11/07/2024 UA WITH MICRO nitrite NEGATI VE neg Not Available [facility] (Lab) [place], [address], 11/07/2024 12:14:00 11/07/19 25 11/07/2024 UA WITH MICRO protein NEGATI VE mg/dL <[address] [facility] (Lab) [place], [address], 11/07/2024 12:14:00 11/07/19 25 11/07/2024 UA WITH MICRO glucose NORMAL mg/dL norm Not Available [facility] (Lab) [place], [address], 11/07/2024 12:14:00 11/07/19 25 11/07/2024 UA WITH MICRO ketone NEGATI VE mg/dL neg Not Available [facility] (Lab) [address] [facility], [place], [address], 11/07/2024 12:14:00 11/07/19 25 11/07/2024 UA WITH MICRO urobilinogen NORMAL mg/dL norm Not Available [facility] (Lab) [address], [place], [address], 11/07/2024 12:14:00 11/07/19 25 11/07/2024 UA WITH MICRO bilirubin NEGATI VE mg/dL neg Not Available [facility] (Lab) [address] [facility], [place], [address], 11/07/2024 12:14:00 11/07/19 25 11/07/2024 UA WITH MICRO blood NEGATI VE neg Not Available [facility] (Lab) [address], [place], [address], 11/07/2024 12:14:00 11/07/19 25 11/07/2024 UA WITH MICRO mucous RARE /lpf Not Available [facility] (Lab) [address] [facility], [place], [address], 11/07/2024 12:14:00 11/07/19 25 11/07/2024 UA WITH MICRO WBC 3 /hpf <6 Not Available [facility] (Lab) [place], [address], 11/07/2024 12:14:00 11/07/19 25 11/07/2024 UA WITH MICRO RBC 1 /hpf <6 Not Available [facility] (Lab) [address] [place], [address], 11/07/2024 12:14:00 11/07/19 25 11/07/2024 UA WITH MICRO squamous epithelial RARE /hpf Not Available [facility] (Lab) [address], [place], [address], 11/07/2024 12:14:00 11/07/19 25 11/07/2024 MICRO ALB/C REAT RATIO creatinine, urine 69.8 mg/dL 28-217 Not Available [facility] (Lab) One [facility], [place], [address], 11/07/2024 12:30:19 11/07/19 25 11/07/2024 MICRO ALB/C REAT RATIO microalbumin , urine 0.7 mg/dL <2.0 Not Available [facility] (Lab) [address] [facility], [place], [address], 11/07/2024 12:30:19 11/07/19 25 11/07/2024 MICRO ALB/C REAT RATIO malb/creat ratio 9.8 mg/g <30 Not Available [facility] (Lab) [address] [facility], [place], [address], 11/07/2024 12:30:19 07/19/20 23 [facility] [place] [address] EXAM: XR LUMB SPINE 3V INDICA TION: [...] IMPRES NILTON: STABLE FUSION HARDWA RE ANTERI SIHRA AND DORSAL LY FROM L4-S1. MILD SPONDY LOSIS. NO ACUTE FINDIN GS OR EVIDEN CE OF HARDWA RE COMPLI CATION . Referr ed By: Electr onical ly Signed By: Omar casanova MD on 7:24 PM Interp reted By: Omar casanova MD, 023 7:[email or web address] [place] [address] [address] [facility], [place], [address], 07/22/2023 09:27:08 08/25/20 23 MRI cerv spine wo con [facility] ONE [facility] [place] [address] EXAMIN ATION: MRI of the cervic al [...] measur ement. Referr ed By: LUCY [facility] onical ly Signed By: Danny Moreno MD on 2022 3:43 PM Interp reted By: Danny Moreno MD, 2022 3:[address] [facility], [place], [address], 08/26/2023 14:16:05 09/10/20 23 MAMMO , scree efe, tomos ynthe sis, bilat eral [facility] ONE [facility] [place] [address] This is a summar y report . The comple te report is availa ble in the patien t's medica l record . If you cannot access the medica l record , please contac t the sendin karma guy for a detail ed fax or copy. Examin ation: Screen ing bilate ral mammog kathleen Access ion: [id number] Exam Date/T laura: 2022 9:19 AM Clinic al histor y: No curren t compla ints. Compar audrey: 021 Techni que: Digita l screen ing mammog phan of both breast s was perfor med. Breast tomosy nthesi s acquis itions were obtain ed and review ed. This study was read with the assist ance of a Kapta er-aid ed detect ion system . Tissue [...] By: Clayton Gan, 2022 9:07 AM merlin [facility] [address] [facility], [place], [address], 09/17/2023 14:09:33 10/20/[address] ABD+p el W con [facility] ONE [facility] [place] [address] EXAMIN ATION: CT abdome n/pelv is with [...] By: Huber García MD, 10/20/19 5:07 AM [facility] [address] [facility], [place], [address], 10/21/2023 10:36:32 11/09/19 xr lumb spine AP+la t only [facility] [address] [facility] [place] [address] Examin ation: Lumbar Spine Radiog raphs Access ion: [id number] Exam date/t laura: 024 9:30 AM Reason For Exam: Implan t Check For MRI Compar audrey: Lumbar spine radiog raphs 023 Views: AP, latera l and cone-d own detail ed latera l radiog raphs of the lumbar spine were obtain ed Findin gs: Anteri or fusion hardwa re of L4-5 and L5-S1 with interb gale spacer s at these levels . Right public information specialist ior fusion of L4-5. Left flank spinal [...] reted By: Eamon Perry MD, 9:46 AM [facility] [address], [place], [address], 11/11/2023 10:43:08 11/12/19 MRI lumb spine wo con [facility] [address] [facility] [place] [address] EXAMIN ATION: MRI lumbar spine withou t contra st ACCESS ION: [id number] EXAM DATE/T LAURA: 10:24 AM REASON [...] reted By: Tobias andrew[address] 12:[email or web address] [facility], [place], [address], 11/12/2023 15:35:19 02/22/[address] ABD+p el W con [facility] [place] [address] Examin ation: CT abdome n and pelvis [...] re identi fied at L4-L5 and L5-S1. Respiratory Care Specialist ior fusion hardwa re identi fied at [...] Jim Ta MD, 02/22/20 12:52 PM [email or web address] [facility] [address] [facility], [place], [address], 02/23/2024 14:39:20 03/10/[address] lumb spine wo con [facility] ONE [facility] [place] [address] DATE: 024 1:47 PM INDICA TION: Lumbar [...] fusion , and unilat eral right- sided public information specialist ior L4-L5 fixati on. There is mature [...] ing. L4-L5: Post surgic al change s. Respiratory Care Specialist ior and margin al endpla te osteop hytes. Facet ankylo sis and hypert rophy. Mild to modera te canal stenos is. Mild right forami nal narrow ing. L5-S1: Post surgic al change s. Respiratory Care Specialist ior and margin al endpla te osteop [...] reted By: Oliver Reynoso MD, 2:[address] [facility], [place], [address], 03/10/2024 15:28:25 03/29/20 24 XR, lumba r spine No observ ation record ed. [place] [address], [place], [address], 03/30/2024 09:03:08 05/28/20 24 05/27/2024 elect silvano barron am No observ ation record ed. [address], [place], [address], 06/04/2024 14:44:55 07/30/20 24 07/30/2024 XR, chest No observ ation record ed. [address], [place], [address], 08/06/2024 12:56:39 08/03/20 24 08/03/2024 jeremías can cardi olite stres s test (PROC ) No observ ation record ed. [facility] Cardiology Department [address] [place], [address], 08/03/2024 15:09:38 08/03/20 24 08/03/2024 jeremías can cardi olite stres s test (PROC ) No observ ation record ed. [facility] Nuclear Medicine [address] [facility] , [place], [address], 08/12/2024 14:04:20 08/03/20 24 08/03/2024 jeremías can cardi olite stres s test (PROC ) No observ ation record ed. [facility] Cardiology [address], [place], [address], 08/04/2024 07:48:31 12/11/19 25 xr ABD AP+la t [facility] [address] [facility] [address] [address] [facility] [address] [facility] [place] [address] RON TEAGUE S: XR ABD AP+LAT DATE: 025 2:53 PM HISTOR Y: Check for abando zana leads and stimul ator placem ent prior to MRI exam 53-yea r-old female . Planne d MRI lumbar spine withou t contra st today. Reques mirza evalua tion of spinal stimul ator and leads prior to MRI. COMPAR AUDREY: CT lumbar spine withou t contra st 024. Radiog raphs lumbar spine 024. Radiog raphs thorac ic spine 2021. DISCUS NILTON: Uprigh t AP view of the chest (exclu ding the apices ) to the iliac crests region and uprigh t latera l view of the chest (exclu ding the apices ) to the lower abdome n region . Stimul ator device in the left flank region with dual leads extend ing medial ly. The leads have severa l loops and the left parasp inal region at L1-2 level. Leads extend into the spinal canal at the T12-L1 level with one lead tip at the T8-9 level and other lead tip up to the superi or T6 level. The appear ance of these stimul ator device and leads is stable compar ed to radiog raphs of the thorac ic and lumbar spine and lower portio n of the leads is also intact on 2023 CT. Partia lly visual ized anteri or fusion plate at L4-5 and at L5-S1 and public information specialist ior fusion jenna and fixati on screws on the right at L4-5 level. Interb gale fusion device s at L4-5 and L5-S1. Thorac ic and lumbar spinal degene rative change s. No acute abnorm ality in the visual ized chest. Cholec ystect jane clips. Nonobs tructi ve bowel gas patter n. IMPRES NILTON: Implan mirza stimul ator device in the left flank region with two intact leads extend ing into the spinal canal as discus sed above. Ordere d By: FRANCK VAZQUEZ Electr onical ly Signed By: Reba Hankins on 025 3:23 PM Interp reted By: Reba Hankins , 025 3:06 PM [facility] [address] [facility], [place], [address], 12/10/2024 19:18:03 12/15/19 25 MRI lumb spine wo con [facility] ONE [facility] [place] [address] [facility] [address] [place] [address] EXAMIN ATION: MRI LUMB SPINE WO CON HISTOR Y: Lower back pain. Lumbar spinal stenos is. Neurog enic claudi cation . COMPAR AUDREY: MRI lumbar spine 024. TECHNI QUE: Multis equenc e and multip lanar MR images of the lumbar spine withou t the use of intrav enous contra st. FINDIN GS: There are 5 lumbar -type verteb ral bodies . No visibl e acute fractu re or disloc ation. No verteb ral body height loss. There is multil evel degene rative disc diseas e and facet arthro jodi throug hout the lumbar spine. There is anteri or and public information specialist ior spinal fusion hardwa re at L4-L5 and L5-S1. There are interb gale spacer device s. There is associ ated metall ic suscep tibili ty artifa ct which limits adjace nt evalua tion. There is promin ent marrow edema involv ing the left-s ided facets at L4-L5, likely degene rative /arthr itic. The conus termin ates at T12. The cauda equina nerve roots appear normal ly distri buted. Evalua tion of the indivi dual lumbar verteb ral levels is as follow s: T12-L1 : Disc bulge. Bilate ral facet arthro jodi. Small 4 mm left synovi al cyst. Mild spinal canal stenos is. No neural forami nal stenos is. L1-L2: Disc bulge. Bilate ral facet arthro jodi. No spinal canal or neural forami nal stenos is. L2-L3: Disc bulge. Bilate ral facet arthro jodi. Modera te spinal canal stenos is with some imping ement upon the descen ding nerve roots. Mild right neural forami nal stenos is. Modera te left neural forami nal stenos is. L3-L4: Disc bulge. Bilate ral facet arthro jodi. Severe spinal canal stenos is with imping ement upon the descen ding nerve roots. Modera te right neural forami nal stenos is. Mild-t o-mode rate left neural forami nal stenos is. L4-L5: Respiratory Care Specialist ior disc osseou s comple x. Bilate ral facet arthro jodi. Mild spinal canal stenos is. Modera te right neural forami nal stenos is. Mild left neural forami nal stenos is. L5-S1: Respiratory Care Specialist ior disc osseou s comple x. Bilate ral facet arthro jodi. No spinal canal stenos is. Mild right neural forami nal stenos is. Modera te left neural forami nal stenos is. No visibl e acute- appear ing parasp inous soft tissue abnorm alitie s. There is left renal cortic al scarri ng. The aorta is normal calibe r. IMPRES NILTON: 1. Multil evel degene rative disc diseas e and facet arthro jodi as detail ed above. 2. Severe spinal canal stenos is at L3-L4. 3. Modera te spinal canal stenos is at L2-L3. 4. Multil evel neural forami nal stenos is as descri bed. 5. No acute osseou s abnorm alitie s. Referr ed By: FRANCK SANTOS Electr onical ly Signed By: Danny Chaudhari DO on 9:54 PM Interp reted By: Danny Chaudhari DO, 9:[address], [address], 12/15/2024 10:22:24 Result Notes None recorded. Problems Name Problem SNOMED Code Status Onset Date Resolution Date Notes Provider Name and Address Organization Details Recorded Time Chronic low back pain 030880688 Active 2018 est with pain management [facility] 3 23:39:48 Restless legs 41231749 Active 2018 Not Available [facility] 3 23:39:48 Diverticu litis 112488301 Active 2021 Not Available [facility] 3 23:39:48 Preoperat robert cardiovas cular examinati on Active 2023 Janeen Godfrey [facility], [place] - [facility] 4 13:06:50 Electroca rdiogram abnormal 441443824 Active 2023 Janeen Godfrey MA null, [place] - [facility] 4 13:06:51 Cardiovas cular stress test abnormal 654730677 Active 2023 Debbie MOJGAN Chavez null, [place] - [facility] 4 11:10:46 Bipolar disorder 15725464 Active Not Available [facility] 3 23:39:48 Perforati on of tympanic membrane 02456475 Active Not Available [facility] 3 23:39:48 Notes:Some problems listed i n Document: #[id number] could not be added to this patient's chart. Please review this document and add these problems to the patient's chart manually as needed. Problem Notes None recorded. Procedures Surgical History Date Name Laterality Status Provider Name and Address Organization Details Recorded Time 024 LEFT HEART CATHETERIZATION (SURG) completed Not Available [facility] 09/11/2024 16:06:37 018 Cerumen Removal completed SWATI Moody Attn: Accounting[address] [place], [address], [place] - [place] 11/22/2017 14:38:03 016 total hysterectomy completed Radha Dupont MD Attn: Account[address] [place], [address], [place] [facility] 04/26/2023 13:42:59 Appendectomy completed Albert Vasquez [place] [facility] 09/27/2015 10:45:08 Other completed [place] Vasquez [place] [facility] 09/27/2015 10:45:08 Tonsillectomy completed [place] Vas[place] [facility] 09/27/2015 10:45:08 Cholecystectomy [place] Vas[place] [facility] 09/27/2015 10:45:08 Hysterectomy completed SWATI Moody Attn: Accounting[address] [place], [address], [place] [facility] 09/27/2015 10:57:33 Back Surgery completed Albert Vasquez [place] [facility] 09/27/2015 10:45:08 Imaging Results Imaging Date Name Status LastModified by Organization Details LastModified Time 07/19/2023 xr lumb spine 3V completed [address], [place], [address], 07/22/2023 09:27:08 08/25/2023 MRI cerv spine wo con completed [address], [place], [address], 08/26/2023 14:16:05 09/10/2023 MAMMO, screening, [facility]os[facility], [facility] [address], [place], [address], 09/17/2023 14:09:33 10/20/2023 CT ABD+pel W con completed [address], [place], [address], 10/21/2023 10:36:32 11/09/2023 xr lumb spine AP+lat only completed [address], [place], [address], 11/11/2023 10:43:08 11/12/2023 MRI lumb spine wo con completed [address], [place], [address], 11/12/2023 15:35:19 02/22/2024 CT ABD+pel W con completed [address], [place], [address], 02/23/2024 14:39:20 03/10/2024 CT lumb spine wo con completed [address], [place], [address], 03/10/2024 15:28:25 03/29/2024 XR, lumbar spine completed [address], [address], 03/30/2024 09:03:08 05/27/2024 electrocardiogram completed [address], [address], 06/04/2024 14:44:55 07/30/2024 XR, chest completed [address], [address], 08/06/2024 12:56:39 08/03/2024 lexiscan cardiolite stress test (PROC) completed [facility] Cardiology Department [address] [place], [address], 08/03/2024 15:09:38 08/03/2024 lexiscan cardiolite stress test (PROC) completed [facility] Nuclear Medicine [address] [place] [place], [address], 08/12/2024 14:04:20 08/03/2024 lexiscan cardiolite stress test (PROC) completed [facility] [address] [place], [address], 08/04/2024 07:48:31 12/10/2024 xr ABD AP+lat completed [address], [place], [address], 12/10/2024 19:18:03 12/14/2024 MRI lumb spine wo con completed [address], [place], [address], 12/15/2024 10:22:24 Procedure Notes None recorded. Medical Equipment None Reported. Allergies Allergen ID Allergen Name Allergen Category Reaction Reaction Severity Criticality Documentation Date Start Date Code Code System Note Provider Name and Address Organization Details Recorded Time 95490 Substance with sulfonami de structure and antibacte rial mechanism of action (substanc e) medicatio n hives moderate Not available 09/27/2015 82477 8003 SNOMED Not Available Not Available Not Available [...] Syringe Ultra-Fine 1 mL 30 gauge x /2 11/25 completed Not Available Not Available Not [...] Updated DateTime 3 167.64 cm 29.1 kg/m2 88221.6 3 g 97.5 [degF] 97 /min 98 % 98 % 119 mm[Hg] 78 mm[Hg] Lucinda Sharma [place] [facility] 3 15:09:08 Date Recorded Body height Body mass index (BMI) Body weight Body temperature Heart rate Systolic blood pressure Diastolic blood pressure Provider Name and Address Organization Details Last Updated DateTime 4 167.64 cm 28.9 kg/m2 96000.0 3 g 97.5 [degF] 110 /min 100 mm[Hg] 66 mm[Hg] Genaro mack MA [facility] 4 14:04:20 Date Recorded Body height Body mass index (BMI) Body weight Oxygen saturation Oxygen saturation in Arterial blood by Pulse oximetry Systolic blood pressure Diastolic blood pressure Provider Name and Address Organization Details Last Updated DateTime 4 167.64 cm 29.3 kg/m2 91637.3 g 98 % 98 % 98 mm[Hg] 62 mm[Hg] Janeen Godfrey MA [facility] 4 15:54:10 Date Recorded Heart rate Provider Name an d Address Organization Details Last Updated DateTime 06/17/2024 96 /min Gulshan Macdonald MD Attn: Accounting,[address] [place], [address], [facility] 06/17/2024 16:07:42 Date Recorded Body height Body mass index (BMI) Body weight Oxygen saturation Oxygen saturation in Arterial blood by Pulse oximetry Heart rate Systolic blood pressure Diastolic blood pressure Provider Name and Address Organization Details Last Updated DateTime 4 167.64 cm 28.5 kg/m2 68141.1 3 g 98 % 98 % 95 /min 100 mm[Hg] 72 mm[Hg] Debbie Chavez MA [facility] 4 15:57:00 Date Recorded Body height Body mass index (BMI) Body weight Heart rate Oxygen saturation Oxygen saturation in Arterial blood by Pulse oximetry Systolic blood pressure Diastolic blood pressure Provider Name and Address Organization Details Last Updated DateTime 4 167.64 cm 28.6 kg/m2 55339.5 7 g 92 /min 97 % 97 % 116 mm[Hg] 68 mm[Hg] Debbie Chavez MA [facility] 4 09:35:07 Social History Question Answer Notes LastModified by Organizat ion Details LastModified Time Tobacco Smoking Status Former Smoker Juli Brothers MA null, [facility] 06/02/2020 15:50:37 Do You Or Have You [...] LastModified Time Mother Malignant tumor of breast [place] [id number] Not available 11/08 14:25:42 Mother Malignant neoplasm of urinary bladder [facility] Not available 11/08 14:25:42 Mother Diabetes mellitus [facility] Not available 11/08 14:25:42 Mother Hypertensive disorder [facility] Not available 11/08 14:25:42 Mother Osteoporosis [facility] Not mala ilable 11/08/2015 14:25:42 Father Malignant tumor of lung [facility] Not available 11/08 14:25:42 Father Malignant tumor of pancreas Not available 11/08 14:25:42 Father Heart disease Not available 11/08 14:25:42 Father Glaucoma [facility] Not availab le 11/08/2015 14:25:42 Father Hypertensive disorder [facility] Not available 11/08 14:25:42 Medical History Condition Response Anxiety Disorder Y Kidney or Bladder Problems Y GI Problems Y Depression Y Allergies Y Gynecological HistoryNo gynecological history recorded. Obstetrics History GPAL:G 0 P 0 0 0 0 Immunizations Vaccine Type Date Status Note Provider Nam e and Address Organization Details Recorded Time SARS-COV-2 (COVID-19) vaccine, UNSPECIFIED 1 completed Not Available [facility] 10/20/2023 06:52:07 COVID-19, mRNA, LNP-S, PF, 30 mcg/0.3 mL dose 1 completed Not Available [facility] 06/20/2023 23:39:48 Tdap 2 completed SWATI Moody Attn: Accounting[address] [facility], [place], [address], [facility] 06/05/2022 13:11:07 Past Encounters Encounter ID Performer Location Encounter Start Date Encounter Closed Date Diagnosis/Indication Diagnosis SNOMED-CT Code Diagnosis ICD10 Code Diagnosis Note [id number] SWAT[facility] ([facility]) [address] [place] [address] 09/27/2015 10:25:13 09/28/2015 09:44:19 Adult health examination 146348731 Z00.00 [id number] SWATI [facility] ([facility]) [address] [place] [address] 11/08/2015 14:14:20 11/09/2015 13:28:03 Perforation of tympanic membrane 88236563 H72.93 Will treat with oral and otic abx. Will see back in 1 week for resolution . Should report to the ER for worsening ear pain, headache and/or fever. Continue warm, moist heat behind ear, use caution when bathing to avoid getting water in ears. [id number] SWATI Moody [facility] ([facility]) [address] [place] [address] 11/22/2016 11:27:47 11/23/2016 10:28:47 Adult health examination 610855566 Z00.00 Due for labs. Due for mammogram. Pap not needed with hysterecto my hx. Discussed healthy diet and exercise as tolerated. Screening mammography 24 803279 Z12.31 Chronic back pain 947756 002 M54.9 Will send for xray. Should discuss with pain management when she gets re-establi shed. Would benefit from PT but unsure of she could tolerate. [id number] Radha Dupont MD [facility] ([facility]) [address] [place] [address] 03/27/2017 10:50:11 03/27/2017 15:32:58 Hypokalemia 30629313 E87.6 Encouraged increase potassium in diet. May be cause of inverted T waves on EKG. Palpitations 21191588 R0 0.2 EKG was abnormal in [facility] and she had an elevated BNP with frequent feelings of chest tightness and palpitatio ns. Needs cardiology referral. If chest tightness or palpitatio ns worsen before cardiology appointmen t should be seen in the ER. [id number] [facility] ([facility]) [address] [place] [address] 10/03/2017 13:48:43 10/11/2017 11:22:10 Accidental drug overdose 27362616 T50.901D -Encourage d her to belt picker Narcan script, may need PA or 340B-Shoul d f/u with pain medication provider for medication assessment . Sprain of right ankle 11 22462248 9365656 S93.491D -Continue RICE therapy-RO M exercises as tolerated [facility] [facility]) [address] [place] [address] 10/11/2017 11:53:51 10/15/2017 14:26:27 Incomplete emptying of urinary bladder 268826839 R39.14 -UA shows scant blood and protein, will send for culture.-I f culture negative will send to urology, may need cystoscopy . Sprain of right ankle 11 80963452 8783177 S93.491D -Continue RICE therapy-RO M exercises as tolerated [id number] [facility] ([address]) [address] [place] [address] 11/22/2017 13:57:09 11/25/2017 11:22:45 Otalgia 64241114 H92.03 -Encourage d to use steroid nasal spray daily-Warm compresses behind ears. Impacted cerumen 7490567 6 H61.21 -Flushed in office. [id number] [facility]I NU[facility]EZ [facility] ([facility]) [address] [place] [address] 04/16/2018 14:11:15 04/23/2018 12:26:13 Constipation 54521256 K59.00 suspect chronic constipati on due to opioid usept does not want to try miralaxsta rt lactulose BID until stools softincrea se fiber and water in dietobtain XR abdomen if not improving in 2-3 daysf/u prn [id number] [facility] ([facility] [address]) [address] [place] [address] 04/29/2018 12:17:50 05/15/2018 12:37:52 Abdominal pain 55681464 R10.9 -Continue close f/u with GI-Avoid constipati on with good bowel routine, high fiber diet and good water intake-Ret urn to the ER for worsening pain. [id number] [facility] ([address]) [address] [place] [address] 01/19/2019 11:41:04 01/20/2019 09:59:16 Acute otitis media 1128715 H65.01 -treat with augmentin- increase water intake Perforatio n of tympanic membrane 47439184 H72.93 -refer to ENT [id number] Jackson Lawler MD [facility] [address] [address] 01/26/2019 10:55:36 01/28/2019 11:34:46 Otitis externa 2368190 H60.93 keep ear dry Sensorineu ral hearing loss of bilateral ears 251378031 H90.3 Dysphagia 08919345 R13.1 0 [id number] SWATI [facility] ([facility]) [address] [place] [address] 02/04/2019 08:56:03 02/04/2019 14:46:36 Urinary incontinence 744517209 R32 Retention of urine 41195 4002 R33.9 -UA shows trace leukocytes , will send for culture Chronic low back pain 27 2117127 M54.5 -already establishe d with pain management , will not provide any additional medication s for her back pain.-refe r to PT [id number] [facility] ([address]) [address] [place] [address] 04/22/2019 10:11:12 04/23/2019 16:05:33 Dizziness 852644803 R42 -BS normal low in the office-adm its to only eating once daily, encouraged to increase calorie intake throughout the day-on multiple agents that cause dizziness- BP normal Bipolar disorder 5541795 4 F31.9 -PHQ9 positive, est at [facility] for treatment [id number] Jackson Lawler MD [facility] [address] [place] [address] 05/27/2019 10:35:22 06/08/2019 12:23:50 Dysphagia 13482604 R13.10 ba swallow normal follow back with neurology [id number] [facility] ([address]) [address] [facility] [place] [address] 11/26/2019 09:53:23 11/27/2019 09:42:06 Chronic low back pain 537181846 M54.5 -discussed with Anh that she has pain management for her back pain and that she needs to continue treatment with them-will not increase the tizanidine dose due to her clonazepam use for her mental health Surgical i ncision wound of skin 9755168281 00 R23.8 -appears to be healing appropriat nany Bipolar disorder 2115105 4 F31.9 -PHQ9 positive, est at [facility] for treatment [id number] [facility] ([address]) [address] [place] [address] 02/09/2020 17:15:21 02/10/2020 12:12:31 Headache 25508094 R51 -tylenol as needed for pain-discu ssed other ways to combat headaches, including rest, dark room, cool cloth on neck-shoul d report back to ER for worst headache ever feeling or any other neurologic al deficits. Dizziness 896561855 R42 -BS normal low-encour aged nutrition and appropriat e water intake-on multiple agents that cause dizziness- should change positions slowly [id number] NOAH MAKfelicia [address] [place] [address] 02/11/2020 09:24:29 02/12/2020 08:48:07 Suspected COVID-19 330283939 Z03.288 [id number] [facility] ([address]) [address] [place] [address] 04/11/2020 12:37:40 04/12/2020 11:23:28 Xerostomia 27633912 R68.2 -suspect recent addition of linzess is causing her symptoms.- frequently on abx from her UTI, may be causing the metallic taste in her mouth-can f/u with GI to see if there is any other medication s she can take that will not cause this side effect Atypical facial pain 713 33158 G50.1 -can try to take the muscle relaxer at night to see if this helps her pain-has refills of medication available- f/u if no change or worsening [id number] [facility] ([facility]) [address] [place] [address] 06/02/2020 15:47:48 06/14/2020 22:20:43 Bipolar disorder 42945041 F31.9 -f/u'd with psych this morning-fe eling better with current medication adjustment s Chronic low back pain 27 8699631 M54.5 -est with pain management -will not increase the tizanidine dose due to her clonazepam use for her mental health [id number] [facility]) [address] [place] [address] 07/04/2020 16:46:31 07/05/2020 10:04:20 Lymphedema of lower extremity 195814325 I89.0 -wearing compressio n stockings, getting relief while they are on-can try short course of furosemide -can try to get into lymphedema clinic at [facility] . Serum crea tinine above reference range 566289209 R79.89 -send to nephrology for raising creatinine and lowering GFR-can not r/o reason for swelling [id number] Jackson Lawler MD [facility] [address] [place] [address] 08/04/2020 13:37:08 08/05/2020 11:19:11 Acute sinusitis 51961506 J01.90 Dermatitis of external ear 433326433 H60.93 use otc steroid cream [id number] MD [facility] ([facility] [address]) [address] [place] [address] 09/21/2020 14:44:49 09/28/2020 10:53:24 Smoker 68632446 F17.200 -vaping, not interested in quitting at this time Serum crea tinine above reference range 499163806 R79.89 -open referral to nephrology for raising creatinine and lowering GFR-can not r/o reason for swelling-e ncouraged to call urology for symptoms with current stones-com plete furosemide as ordered from the ER-check UA to r/o UTI with flank pain, send for renal US-back to ER for any worsening symptoms, difficulty with urination Bipolar disorder 1825317 4 F31.9 -est with psych-feel ing worse with current chronic health conditions and pain-will talk to her psychiatri st today Obesity 897540826 Z68.31 -check A1C Chronic low back pain 27 5518457 M54.5 -est with pain management -can cont tizanidine at current dose [id number] Jackson Lawler MD [facility] [address] [place] [address] 09/22/2020 14:55:22 09/22/2020 16:09:08 Otitis externa 0936860 H60.93 keep ear dry [id number] Pebbles Salmeron NP-C [facility] ([facility]) [address] [place] [address] 11/24/2020 16:45:16 12/07/2020 11:15:45 Liver enzymes level above reference range 901699357 R74.8 -being followed by Dr. Ann office -encourage d low fat diet Edema of l ower extremity 510866270 R60.0 -no resolution with lasix -ok to resume PT to see if this helps with weight, mobility and swelling [id number] Tatum Alicea, BRIMMER BLOCKER-[facility] ([facility]) [address] [facility] [address] 03/03/2021 16:01:17 03/10/2021 08:52:54 Lymphedema 625326933 I89.0 -lasix and K increase 40/ respective ly-Continu e PT as previously prescribed [...] states understand ing. Right Achi lles tendinitis 5208299701 02046 M76.61 [place] and toradol injection im per ma per voRICE encouraged fu in 1 mo prnPT to be considered if lacking resolution Night sweats 53766563 R6 1 other labs up-to-date .pt reports total hysterecto my 13 years agotrazado ne dc while in hospital. may cause night sweats to resolve. will continue to monitor. Screening mammography 24 932416 Z12.31 pt reports last mammogram approx. 2-3 years agopending . will tailor treatment accordingl y upon receipt of labs [id number] Pebbles Salmeron, NOAH-C [facility] ([facility]) [address] [facility] [address] 04/19/2021 15:12:45 04/20/2021 11:43:55 Bilateral plantar fasciitis 7254090655 6068877 M72.2 -refer to podiatry-e ncouraged stretching and rolling foot on iced water bottle for pain relief Restless legs 66144442 G 25.81 -stable, needs refill Chronic low back pain 27 8133958 M54.5 -est with pain management -can cont cyclobenza nadira at current dose [id number] [facility] ([address]) [address] [place] [address] 08/21/2021 10:27:39 08/25/2021 12:35:30 Abdominal bloating 853682915 R14.0 -est with GI- will see them on Saturday-no signs of ascites on last CT scan Flank pain 509133362 R10 .9 -encourage d f/u with urology-ca n give very short term tramadol for pain relief. Understand s her pain is going to be harder to treat with her past hx of heavy opioid pain meds for low back pain-may need to consider pain management referral [id number] [facility] ([address]) [address] [place] [address] 01/24/2022 09:46:59 01/25/2022 09:13:26 Upper respiratory infection 81217449 J06.9 -rapid covid negative-w ill treat for sinusitis with length of symptoms-p ush fluids-can try sinus rinses Daytime somnolence 34527 33794 00 R40.0 -on multiple medication s for sleep-need s sleep med referral Chronic sinusitis 499543 00 J32.9 -cont nasal steroid Obesity 669550048 E66.9 -check A1C [id number] [facility] ([address]) [address] [place] [address] 02/15/2022 15:12:05 02/20/2022 14:42:33 Acute otitis media 3981437 H65.01 -treat with cefuroxime since she was recently on augmentin- increase water intake-if not better will need to see ENT Cough 33834484 R05.1 -cough syrup as needed-can also drink hot tea with lemon and honey-warm salt water gargles and lozenges as needed [id number] [facility] ([address]) [address] [place] [address] 05/23/2022 16:30:29 06/06/2022 08:34:58 Immunization status unknown 214398181 Z76.89 Tuberculos is screening 293059422 Z11.1 Active or passive immunization 865419384 Z23 History an d physical examination, pre-employment 519626567 Z02.1 -no red falgs to exclude from employment -update immunizati ons and check titers. [id number] JENY Marshall- [facility]) [address] [place] [address] 09/14/2022 15:10:20 09/18/2022 11:02:08 Diarrhea 60242312 R19.7 hydration and rest encouraged fu as neededrepo rt to ED if s/s worsenhand hygeine encouraged use immodium in marylou of Pepto-Bism ol for better results Lower abdominal pain 545 90521 R10.30 -WBC wnl labs as of 09/13/2022 [...] dark colored diarrhea s/s-last colonoscop y per [place] 06/2020. Pt serves as poor historian. Chronic back pain 288649 002 G89.29 -medicatio n refill following trial of baclofen dt cyclobenza nadira ineffectiv e in managing chronic spinal pain-RICE encouraged -fu w/ PCP/pain management as needed-rep ort to ED if s/s worsen Diverticul osis of colon 185980524 K57.30 informatio n and discussion provided regarding dx; as pt reports she was unaware of dx [id number] Pebbles Salmeron NP-[facility] ([facility]) [address] [place] [address] 11/05/2022 17:16:01 11/09/2022 13:43:19 Acute pharyngitis 913877226 J02.9 -rapid neg, send cx-support robert care with warm liquids and tylenol for pain Overweight 914926338 E66 .3 Nicotine-f illed electronic cigarette user 753384204 Z72.89 -vaping, not interested in quitting at this time [id number] [facility] ([address]) [address] [place] [address] 05/02/2023 11:38:13 05/18/2023 00:05:12 Acute urinary tract infection 542444274 N39.0 -will treat with macrobid-w ill need urology referral if she gets another UTI-push fluids-f/u if symptoms do not improve in 2-3 days Screening mammography 24 389801 Z12.31 Osteoarthritis 852226269 M19.90 -stable on NSAIDs-use caution with CKD Overweight 148399281 E66 .3 [id number] [facility] ([facility]) [address] [place] [address] 07/22/2023 15:38:17 07/24/2023 11:57:25 Low back strain 949242504 S39.012A -getting better, MRI not warranted at this time-to ER for any saddle anesthesia or loss of bowel or bladder function-l ifting restrictio n for 1 week-see back in 1 week for reassessme nt Overweight 931494017 E66 .3 [id number] SW[facility]I [facility] ([address]) [address] [place] [address] 07/31/2023 15:01:20 08/02/2023 12:27:35 Chronic sinusitis 15715045 J32.9 -stable, cont nasal steroid Overweight 132104246 E66 .3 Chronic low back pain 27 5720912 M54.50 -est with pain management , on chronic opioids and muscle relaxers-w ork note provided to increase lifting weight-f/u as needed, cont close f/u with pain management [id number] SWATI [facility] [address] [place] [address] 06/04/2024 13:53:14 06/08/2024 13:56:28 Electrocardiogram abnormal 206730207 R94.31 -refer to cardiology for clearance Overweight 718553599 E66 .3 [id number] Gulshan Macdonald MD [facility] [place] [facility] [address] [place] [address] 06/17/2024 15:33:34 06/18/2024 09:57:05 Electrocardiogram abnormal 396830879 R94.31 Preoperati ve cardiovascular examination 220733904 Z01.810 Chest pain 92748045 R07. 9 Hyperlipid emia screening 303699468 Z13.807 [id number] Gulshan Macdonald MD [facility] [place] [facility] [address] [place] [address] 08/17/2024 15:46:02 08/21/2024 08:19:07 Electrocardiogram abnormal 620432665 R94.31 Preoperati ve cardiovascular examination 114007536 Z01.810 Chest pain 68173013 R07. 9 Cardiovasc ular stress test abnormal 697894035 R94.39 Hyperlipid emia screening 383396149 Z13.920 [id number] Gulshan Macdonald MD [facility] [place] [facility] [address] [place] [address] 09/15/2024 09:27:28 09/17/2024 10:54:41 Electrocardiogram abnormal 687459641 R94.31 Preoperati ve cardiovascular examination 912860824 Z01.810 Chest pain 02329439 R07. 9 Cardiovasc ular stress test abnormal 710517059 R94.39 Hyperlipid emia screening 847283471 Z13.220 Health Concerns Section Related Observation LastModified by Organization Detai ls LastModified Time None Recorded Concern Status LastModified by Organization Details LastModified Time None Recorded Advance Directives Directive None Recorded Payers Encounter Date Sequence Insurance Name Policy Number Policy Tinoco Covered Member ID Tinoco Member ID Guarantor Name 07/31/2023 2 [place] WHEN MEDICARE OR MEDICARE REPLACEMENT PRIMARY) Anh Martino [id number] Anh Martino 07/31/[address] [facility] (MEDICARE REPLACEMENT/AD VANTAGE - HMO) [id number] Anh Martino [id number] Anh Martino 06/04/2024 2 [place] REPLAC[place]) Anh Martino [id number] Anh Martino 06/04/[address] [facility] (MEDICARE REPLACEMENT/AD VANTAGE - HMO) [id number] Anh Martino [id number] Anh Martino 06/17/2024 2 [place]PL[place]IMARY) Anh Martino [id number] Anh Martino 06/17/[address] [facility] (MEDICARE REPLACEMENT/AD VANTAGE - HMO) [id number] Anh Martino [id number] Anh Martino 08/17/2024 2 [place] OR [place]IC[place]PLACEMENT [place]IMARY) Anh Martino [id number] Anh Martino 08/17/[address] [facility] (MEDICARE REPLACEMENT/AD VANTAGE - HMO) [id number] Anh Sanchezroyce [id number] Anh Martino 09/15/2024 2 [place]ACEMENT [place]IMARY) Anh Martino [id number] Anh Martino 09/15/[address] [facility] (MEDICARE REPLACEMENT/AD VANTAGE - HMO) [id number] Anh Martino [id number] Anh Martino Notes Date Note Type Note [...] could start lifting up to 15 pounds. Pebbles Salmeron, NOAH-C Attn: Accounting,[address] [facility], [place], [address], [place] 07/31/2023 17:21:25 06/04/2024 text/html Anh is here t [place] needing cardiac clearance for her back surgery. She had an abnormal EKG in pre-testing. She denies any chest pain, palpitations or shortness of breath. SWATI Moody Attn: Accounting,[address] [facility], [place], [address], [facility] 06/04/2024 22:52:11 06/17/2024 text/html 53-year-old fema willie who has no [...] 64 Gulshan Macdonald MD Attn: Accounting,[address] [facility], [place], [address], [facility] 06/17/2024 16:18:02 08/17/2024 text/html 53-year-old femkelley tapia who has no history of coronary artery [...] She also had a Lexiscan Myoview at [facility] on August 03, 2024 which was suggestive [...] 74%. Gulshan Macdonald MD Attn: Accounting,[address] [facility], [place], [address], [place] 08/17/2024 16:21:24 09/15/2024 text/html 53-year-old [...] She also had a Lexiscan Myoview at [facility] on August 03, 2024 which was suggestive [...] 74%. Gulshan Macdonald MD Attn: Accounting,[address] [place], [address], [facility] 09/15/2024 10:27:04 OBGyn Episode No OBEpisode recorded.
--- OUTSIDE RECORDS SUMMARY | 2024-12-29 01:01 | XMS_ITS | Encounter Summary ---
Author Organization [employer] Address 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
--- OUTSIDE RECORDS SUMMARY | 2024-12-29 01:01 | XMS_ITS | Encounter Summary ---
Author Organization [facility] [employer] Address 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
--- OUTSIDE RECORDS SUMMARY | 2024-12-29 01:01 | XMS_ITS | Encounter Summary ---
Author Organization [employer] Address 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
--- OUTSIDE RECORDS SUMMARY | 2024-12-29 01:01 | XMS_ITS | Encounter Summary ---
Author Organization [employer] Address [address] [place] [address] Care Team Providers Care Admission Liaison Name Role Phone Charlie Mera MD Primary Care Provider Mary tapia Encounter Details Date Type Department Care Team (Late st Contact Info) Description 11/06/2004 Outpatient Historical [facility] STRusty Esparza MD [address] [place] [address] [place], Authorized P NO ADDRESS ON FILE CALCULUS OF URETER (Primary Dx) Social History Tobacco Use Types Packs/Day Years Used Date Smoking Tobacco: Never Assessed Comments Unknown Sex and Gender Information Value Date Recorded Sex Assigned at Not on file Legal Sex Female 4:21 AM RETAIL ADVERTISING SALES MANAGER Gender Identity Not on file Sexual Orientation Not on file documented as of this encounter Plan of Treatment Not on file documented as of this encounter Procedures Procedure Name Priority Date/Time Associated Diagnosis Comments URINALYSIS W/REFLEX MICROSCOPIC Routine 11/06/2004 11:28 AM RETAIL ADVERTISING SALES MANAGER CBC WITH DIFFERENTIAL Routine 11/06/2004 11:26 AM RETAIL ADVERTISING SALES MANAGER CBC WITH DIFFERENTIAL Routine 11/06/2004 11:26 AM RETAIL ADVERTISING SALES MANAGER HCG QUANTITATIVE, BLOOD Routine 11/06/2004 11:26 AM RETAIL ADVERTISING SALES MANAGER documented in this encounter Results * (ABNORMAL) URINALYSIS (11/06/2004 11:28 AM RETAIL ADVERTISING SALES MANAGER) COLOR UA Yellow INTERFACE SYSTEM CLARITY UA [...] INT ERFACE SYSTEM 11/06/2004 11:2 8 AM RETAIL ADVERTISING SALES MANAGER us Rusty Norman MD URINE ORDERABLES Final Resul t INTERFACE SYSTEM Refer to clinic/hospital department * HCG QUANTITATIVE, BLOOD (11/06/2004 11:26 AM RETAIL ADVERTISING SALES MANAGER) HCG QUANT, BLOOD <5 0 - 5 [...] read back verified. 11/06/2004 11:2 6 AM RETAIL ADVERTISING SALES MANAGER Rusty Norman MD CHEMISTRY ORDERABLES Final R esult Performing Organization Address [facility] de Phone Number INTERFACE SYSTEM Refer to clinic/hospital department * CBC WITH DIFFERENTIAL (11/06/2004 11:26 AM RETAIL ADVERTISING SALES MANAGER) NEUTROPHILS 67 45 - 70 % INTERFAC [...] K/uL INTERFACE SYSTEM 11/06/2004 11:2 6 AM RETAIL ADVERTISING SALES MANAGER Rusty Norman MD HEMATOLOGY ORDERABLES Final Result Performing Organization Address [facility] Phone Number INTERFACE SYSTEM Refer to clinic/hospital department * CBC WITH DIFFERENTIAL (11/06/2004 11:26 AM RETAIL ADVERTISING SALES MANAGER) WBC 6.6 4.0 - 9.8 K/uL INTERFACE [...] fL INTERFACE SYSTEM 11/06/2004 11:2 6 AM RETAIL ADVERTISING SALES MANAGER us Rusty Norman MD HEMATOLOGY ORDERABLES Final Result INTERFACE SYSTEM Refer to clinic/hospital department documented in this encounter Visit Diagnoses Diagnosis Calculus of ureter- Primary documented in this encounter Care Teams Admission Liaison Relationship Specialty Start Date End Date Charlie Mera MD NO ADDRESS ON FILE PCP - General 09/19/05 documented as of this encounter
--- OUTSIDE RECORDS SUMMARY | 2024-12-29 01:01 | XMS_ITS | Encounter Summary ---
Author Organization [employer] Address [address] [place] [address] Care Team Providers Care Port Drier Name Role Phone Charlie Mera MD Primary Care Provider Mary tapia Encounter Details Date Type Department Care Team (Latest Contact Info) Description 08/01/2004 Outpatient Historical [facility] PATIENT IN A BED Marcelino Mendoza MD [address] [facility] [address] [address] OTHER CURR COND-ANTEPARTUM (Primary Dx) Social History Tobacco Use Types Packs/Day Years Used Date Smoking Tobacco: Never Assessed Comments Unknown Sex and Gender Information Value Date Recorded Sex Assigned at Not on file Legal Sex Female 4:21 AM SUPERVISOR ORCHARD Gender Identity Not on file Sexual Orientation Not on file documented as of this encounter Plan of Treatment Not on file documented as of this encounter Visit Diagnoses Diagnosis Other current maternal conditions classifiable elsewhere, antepartum- Primary documented in this encounter Care Teams Port Drier Relationship Specialty Start Date End Date Charlie Mera MD NO ADDRESS ON FILE PCP - General 09/19/05 documented as of this encounter
--- OUTSIDE RECORDS SUMMARY | 2024-12-29 01:01 | XMS_ITS | Encounter Summary ---
Author Organization [facility] Address [address] [place] [address] Care Team Providers Care Service Desk Specialist Name Role Phone Charlie Mera MD Primary Care Provider Unavailab le Encounter Details Date Type Department Care Team (Late st Contact Info) Description 09/14/2004 Outpatient Historical [facility] [address] [place] [id number] Eamon Nash MD [address] [place] [address] Social History Tobacco Use Types Packs/Day Years Used Date Smoking Tobacco: Never Assessed Comments Unknown Sex and Gender Information Value Date Recorded Sex Assigned at Not on file Legal Sex Female 4:21 AM FIELD RECORDER Gender Identity Not on file Sexual Orientation Not on file documented as of this encounter Plan of Treatment Not on file documented as of this encounter Visit Diagnoses Not on filedocumented in this encounter Care Teams Service Desk Specialist Relationship Specialty Start Date End Date Charlie Mera MD NO ADDRESS ON FILE PCP - General 09/19/05 documented as of this encounter
--- OUTSIDE RECORDS SUMMARY | 2024-12-29 01:01 | XMS_ITS | Encounter Summary ---
Author Organization [employer] Address [address] [place] [address] Care Team Providers Care Ammonia Print Operator Name Role Phone Charlie Mera MD Primary Care Provider Mary tapia Encounter Details Date Type Department Care Team (Latest Contact Info) Description 09/17/2004 Inpatient Historical [facility] PATIENT IN A BED Gunner Alvarez MD [address] [address] COMPLIC LABOR NEC-DELIVERED (Primary Dx) Social History Tobacco Use Types Packs/Day Years Used Date Smoking Tobacco: Never Assessed Comments Unknown Sex and Gender Information Value Date Recorded Sex Assigned at Not on file Legal Sex Female 4:21 AM BROADBAND ENGINEER Gender Identity Not on file Sexual Orientation Not on file documented as of this encounter Plan of Treatment Not on file documented as of this encounter Procedures Procedure Name Priority Date/Time Associated Diagnosis Comments HEMOGLOBIN AND HEMATOCRIT Routine 09/18/2004 8:04 AM BROADBAND ENGINEER documented in this encounter Results * (ABNORMAL) HEMOGLOBIN AND HEMATOCRIT (09/18/2004 8:04 AM BROADBAND ENGINEER) HEMOGLOBIN 9.4(L) 11.8 - 14.8 g/dL INTERFACE SYSTEM HEMATOCRIT 27.9(L) 35.5 - 44.0 % INTERFACE SYSTEM 09/18/2004 8:04 AM BROADBAND ENGINEER us Gunner Alvarez MD HEMATOLOGY ORDERABLES Final R esult INTERFACE SYSTEM Refer to clinic/hospital department documented in this encounter Visit Diagnoses Diagnosis Other specified indication for care or intervention related to labor and delivery, delivered- Primary documented in this encounter Care Teams Ammonia Print Operator Relationship Specialty Start Date End Date Charlie Mera MD NO ADDRESS ON FILE PCP - General 09/19/05 documented as of this encounter
--- OUTSIDE RECORDS SUMMARY | 2024-12-29 01:01 | XMS_ITS | Encounter Summary ---
Author Organization [employer] Address [address] [place] [address] Care Team Providers Care Cold Meat Chef Name Role Phone Charlie Mera MD Primary Care Provider Unavailab le Encounter Details Date Type Department Care Team (Late st Contact Info) Description 07/26/2004 Outpatient Historical [facility] [place] Rob, Valente [place] MD [address] [place], [place] [id number] Social History Tobacco Use Types Packs/Day Years Used Date Smoking Tobacco: Never Assessed Comments Unknown Sex and Gender Information Value Date Recorded Sex Assigned at Not on file Legal Sex Female 4:21 AM SIGNAL OPERATOR Gender Identity Not on file Sexual Orientation Not on file documented as of this encounter Plan of Treatment Not on file documented as of this encounter Visit Diagnoses Not on filedocumented in this encounter Care Teams Cold Meat Chef Relationship Specialty Start Date End Date Charlie Mera MD NO ADDRESS ON FILE PCP - General 09/19/05 documented as of this encounter
--- OUTSIDE RECORDS SUMMARY | 2024-12-29 01:01 | XMS_ITS | Encounter Summary ---
Author Organization [facility] Address [address] [place] [address] Care Team Providers Care Knitting Machine Operator Automatic Name Role Phone Charlie Mera MD Primary Care Provider Unavailab le Encounter Details Date Type Department Care Team (Late st Contact Info) Description 09/12/2004 Outpatient Historical [facility] [address] [place] [address] Gunner Alvarez MD [address] [facility] [address] [facility] [place] [address] Social History Tobacco Use Types Packs/Day Years Used Date Smoking Tobacco: Never Assessed Comments Unknown Sex and Gender Information Value Date Recorded Sex Assigned at Not on file Legal Sex Female 4:21 AM ACCOUNTING PROFESSIONAL Gender Identity Not on file Sexual Orientation Not on file documented as of this encounter Plan of Treatment Not on file documented as of this encounter Visit Diagnoses Not on filedocumented in this encounter Care Teams Knitting Machine Operator Automatic Relationship Specialty Start Date End Date Charlie Mera MD NO ADDRESS ON FILE PCP - General 09/19/05 documented as of this encounter
--- OUTSIDE RECORDS SUMMARY | 2024-12-29 01:01 | XMS_ITS | Encounter Summary ---
Author Organization [facility] Address [address] [place] [address] Care Team Providers Care Fill Technician Name Role Phone Charlie Mera MD Primary Care Provider Unavailab le Encounter Details Date Type Department Care Team (Late st Contact Info) Description 08/03/2004 Outpatient Historical [facility] [address] [place] [address] Jb Blanco MD [address] [address] Social History Tobacco Use Types Packs/Day Years Used Date Smoking Tobacco: Never Assessed Comments Unknown Sex and Gender Information Value Date Recorded Sex Assigned at Not on file Legal Sex Female 4:21 AM ACCOUNT SUPPORT REP Gender Identity Not on file Sexual Orientation Not on file documented as of this encounter Plan of Treatment Not on file documented as of this encounter Visit Diagnoses Not on filedocumented in this encounter Care Teams Fill Technician Relationship Specialty Start Date End Date Charlie Mera MD NO ADDRESS ON FILE PCP - General 09/19/05 documented as of this encounter
--- OUTSIDE RECORDS SUMMARY | 2024-12-29 01:01 | XMS_ITS | Encounter Summary ---
Author Organization [facility] Address [address] [place] [address] Care Team Providers Care Construction Site Manager Name Role Phone Unavailable Primary Care Provider Unavailabl e Prior Encounters Date Type Department Care Team Description 10/05/2019 Converted CPS Chart Documents [facility] [address] [place] [address] <No scans attached> 10/05/2019 Converted 13x Documents [facility] [address] [place] [address] <No scans attached> Plan of Treatment Not on file Procedures Procedure Name Priority Date/Time Associated Diagnosis Comments 31 LIMITED ORAL EVALUATION - PROBLEM FOCUSED Routine 06/22/2020 2:00 AM CDT PANORAMIC RADIOGRAPHIC IMAGE Routine 06/22/2020 2:00 AM CDT Visit Diagnoses Not on file
--- OUTSIDE RECORDS SUMMARY | 2024-12-29 01:01 | XMS_ITS | Encounter Summary ---
Author Organization [employer] Address [address] [place] [address] Care Team Providers Care Joiner Helper Name Role Phone Charlie Mera MD Primary Care Provider Unavailab le Encounter Details Date Type Department Care Team (Late st Contact Info) Description 09/15/2004 Outpatient Historical [facility] [address] [place] [address] Сергей Carbajal MD [address] [place] [address] Social History Tobacco Use Types Packs/Day Years Used Date Smoking Tobacco: Never Assessed Comments Unknown Sex and Gender Information Value Date Recorded Sex Assigned at Not on file Legal Sex Female 4:21 AM STATION REPAIRER Gender Identity Not on file Sexual Orientation Not on file documented as of this encounter Plan of Treatment Not on file documented as of this encounter Visit Diagnoses Not on filedocumented in this encounter Care Teams Joiner Helper Relationship Specialty Start Date End Date Charlie Mera MD NO ADDRESS ON FILE PCP - General 09/19/05 documented as of this encounter
--- OUTSIDE RECORDS SUMMARY | 2024-12-29 01:01 | XMS_ITS | Encounter Summary ---
Author Organization [facility] Address [address] [place] [address] Care Team Providers Care Actimize Architect Name Role Phone Charlie Mera MD Primary Care Provider Unavailab le Encounter Details Date Type Department Care Team (Late st Contact Info) Description 09/14/2004 Outpatient Historical [facility]aternal and Ground [facility] [address] [place] [address] Elie Kasper MD NO ADDRESS ON FILE Social History Tobacco Use Types Packs/Day Years Used Date Smoking Tobacco: Never Assessed Comments Unknown Sex and Gender Information Value Date Recorded Sex Assigned at Not on file Legal Sex Female 4:21 AM DREDGE PUMPER Gender Identity Not on file Sexual Orientation Not on file documented as of this encounter Plan of Treatment Not on file documented as of this encounter Visit Diagnoses Not on filedocumented in this encounter Care Teams Actimize Architect Relationship Specialty Start Date End Date Charlie Mera MD NO ADDRESS ON FILE PCP - General 09/19/05 documented as of this encounter
--- OUTSIDE RECORDS SUMMARY | 2024-12-29 01:01 | XMS_ITS | Encounter Summary ---
Author Organization [facility] Address [address] [place] [address] Care Team Providers Care Aix Administrator Name Role Phone Charlie Mera MD Primary Care Provider Unavailab le Encounter Details Date Type Department Care Team (Late st Contact Info) Description 09/17/2004 Outpatient Historical [facility] [address] [place] [address] Ismael Garnett MD [address] [place], [place] [address] Social History Tobacco Use Types Packs/Day Years Used Date Smoking Tobacco: Never Assessed Comments Unknown Sex and Gender Information Value Date Recorded Sex Assigned at Not on file Legal Sex Female 4:21 AM CONCRETE PILE DRIVER OPERATOR Gender Identity Not on file Sexual Orientation Not on file documented as of this encounter Plan of Treatment Not on file documented as of this encounter Visit Diagnoses Not on filedocumented in this encounter Care Teams Aix Administrator Relationship Specialty Start Date End Date Charlie Mera MD NO ADDRESS ON FILE PCP - General 09/19/05 documented as of this encounter
--- OUTSIDE RECORDS SUMMARY | 2024-12-29 01:02 | XMS_ITS | Encounter Summary ---
Author Organization [employer] Address [address] [place] [address] Care Team Providers Care Thermal Cutter Hand Name Role Phone Charlie Mera MD Primary Care Provider Mary tapia Encounter Details Date Type Department Care Team (Late st Contact Info) Description 05/09/2004 Outpatient Historical [facility] Jb Blanco MD [address] [facility] [address] [address] [place] [address] PLACENTA PREVIA-ANTEPART (Primary Dx) Social History Tobacco Use Types Packs/Day Years Used Date Smoking Tobacco: Never Assessed Comments Unknown Sex and Gender Information Value Date Recorded Sex Assigned at Not on file Legal Sex Female 4:21 AM RODDING ANODE WORKER Gender Identity Not on file Sexual Orientation Not on file documented as of this encounter Plan of Treatment Not on file documented as of this encounter Visit Diagnoses Diagnosis Placenta previa without hemorrhage, antepartum- Primary documented in this encounter Care Teams Thermal Cutter Hand Relationship Specialty Start Date End Date Charlie Mera MD NO ADDRESS ON FILE PCP - General 09/19/05 documented as of this encounter
--- OUTSIDE RECORDS SUMMARY | 2024-12-29 01:02 | XMS_ITS | Encounter Summary ---
Author Organization [employer] Address [address] [place] [address] Care Team Providers Care Copy Clerk Name Role Phone Charlie Mera MD Primary Care Provider Mary tapia Encounter Details Date Type Department Care Team (Latest Contact Info) Description 06/20/2004 Outpatient Historical [facility] PATIENT IN A BED Jackson Theodore MD [address] [facility] [address] [place] [address] OTHER CURR COND-ANTEPARTUM (Primary Dx) Social History Tobacco Use Types Packs/Day Years Used Date Smoking Tobacco: Never Assessed Comments Unknown Sex and Gender Information Value Date Recorded Sex Assigned at Not on file Legal Sex Female 4:21 AM SMOKE CHASER Gender Identity Not on file Sexual Orientation Not on file documented as of this encounter Plan of Treatment Not on file documented as of this encounter Visit Diagnoses Diagnosis Other current maternal conditions classifiable elsewhere, antepartum- Primary documented in this encounter Care Teams Copy Clerk Relationship Specialty Start Date End Date Charlie Mera MD NO ADDRESS ON FILE PCP - General 09/19/05 documented as of this encounter
--- OUTSIDE RECORDS SUMMARY | 2024-12-29 01:02 | XMS_ITS | Encounter Summary ---
Author Organization [facility] Address [address] [place] [address] Care Team Providers Care Syrup Blender Name Role Phone Charlie Mera MD Primary Care Provider Unavail le Encounter Details Date Type Department Care Team (Late st Contact Info) Description 06/02/2004 Outpatient Historical [facility] [address] [facility] [place] [address] [place] [address] [place] [address] Social History Tobacco Use Types Packs/Day Years Used Date Smoking Tobacco: Never Assessed Comments Unknown Sex and Gender Information Value Date Recorded Sex Assigned at Not on file Legal Sex Female 4:21 AM SPECIAL WEAPONS UNIT OFFICER Gender Identity Not on file Sexual Orientation Not on file documented as of this encounter Plan of Treatment Not on file documented as of this encounter Visit Diagnoses Not on filedocumented in this encounter Care Teams Syrup Blender Relationship Specialty Start Date End Date Charlie Mera MD NO ADDRESS ON FILE PCP - General 09/19/05 documented as of this encounter
--- OUTSIDE RECORDS SUMMARY | 2024-12-29 01:02 | XMS_ITS | Encounter Summary ---
Author Organization [employer] Address [address] [place] [address] Care Team Providers Care Non Destructive Testing Engineer Name Role Phone Charlie Mera MD Primary Care Provider Mary le Encounter Details Date Type Department Care Team (Late st Contact Info) Description 05/25/2004 Outpatient Historical [facility] Jb Blanco MD [address] [facility] [address] [address] [place] [address] SUPERVIS OTHER NORMAL PREG (Primary Dx) Social History Tobacco Use Types Packs/Day Years Used Date Smoking Tobacco: Never Assessed Comments Unknown Sex and Gender Information Value Date Recorded Sex Assigned at Not on file Legal Sex Female 4:21 AM LAGGING MACHINE OPERATOR Gender Identity Not on file Sexual Orientation Not on file documented as of this encounter Plan of Treatment Not on file documented as of this encounter Visit Diagnoses Diagnosis Supervision of other normal - Primary documented in this encounter Care Teams Non Destructive Testing Engineer Relationship Specialty Start Date End Date Charlie Mera MD NO ADDRESS ON FILE PCP - General 09/19/05 documented as of this encounter
--- OUTSIDE RECORDS SUMMARY | 2024-12-29 01:02 | XMS_ITS | Encounter Summary ---
Author Organization [facility] Health Address [address] [facility] [place] [address] Care Team Providers Care Umbrella Cutter Name Role Phone Ute Betancourt MOLASSES FEED MIXER-PARTS CLEANER Primary Care Provider Reason for Visit * Reason Onset Date Comments Refill Request 12/21/2021 Encounter Details Date Type Department Care Team (Late st Contact Info) Description 12/21/2021 Telephone [facility] [address] [place] [address] Artemio Fallon MD Refill Request Social History Tobacco Use Types Packs/Day Years Used Date Smoking Tobacco: Former Cigarettes Q uit: 04/01/2014 Smokeless Tobacco: Never Alcohol Use Standard Drinks/Week Comments Not Currently 0 (1 standard drink = 0.6 oz pur e alcohol) OCCASIONAL, 1-2/YEAR Comments No Sex and Gender Information Value Date Recorded Sex Assigned at Not on file Legal Sex Female 5:55 AM METER MECHANIC Gender Identity Not on file Sexual Orientation Not on file documented as of this encounter Functional Status * Is person deaf or have serious hearing difficulty? Answer Date of Assessment Author No 05/17/2020 4:50 AM CDT Geetha Esposito RN * Is person blind or have serious difficulty seeing? Answer Date of Assessment Author No 05/17/2020 4:50 AM CDT Geetha Esposito RN * Does person have serious difficulty walking/climbing stairs? Answer Date of Assessment Author No 05/17/2020 4:50 AM CDT Geetha Esposito RN * Does person have difficulty dressing/bathing? Answer Date of Assessment Author No 05/17/2020 4:50 AM CDT Geetha Esposito RN * Does person have difficulty doing errands alone? Answer Date of Assessment Author No 05/17/2020 4:50 AM CDT Geetha Esposito RN documented as of this encounter Mental Status * Does person have difficulty concentrating/remembering/making decisions? Answer Entry Date Author Yes 05/17/2020 4:50 AM CDT Geetha Esposito RN documented in this encounter Miscellaneous Notes * Telephone Encounter [...] Management General On track( 022 11:05 AM METER MECHANIC) No Ze Michaels, RN Note: Expected end date: Interventions: Take all medications as prescribed Let your doctor know right away about any changes in your medications Make sure to request a refill of your medication at least one week prior to your last dose documented as of this encounter Visit Diagnoses Not on filedocumented in this encounter Care Teams Umbrella Cutter Relationship Specialty Start Date End Date Ute Betancourt APRN-MARITO [address] [place] [address] [address] [place], [place] [id number] PCP - General 03/25/18 documented as of this encounter
--- OUTSIDE RECORDS SUMMARY | 2024-12-29 01:02 | XMS_ITS | Encounter Summary ---
Author Organization [employer] Address [address] [place] [address] Care Team Providers Care Senior Accounting Clerk Name Role Phone Charlie Mera MD Primary Care Provider Mary le Encounter Details Date Type Department Care Team (Late st Contact Info) Description 06/08/2004 Outpatient Historical [facility], [address] Jb Blanco MD [facility] [address] [address] [place] [address] PREG STATE, INCIDENTAL (Primary Dx) Social History Tobacco Use Types Packs/Day Years Used Date Smoking Tobacco: Never Assessed Comments Unknown Sex and Gender Information Value Date Recorded Sex Assigned at Not on file Legal Sex Female 4:21 AM TIRE CORD WEAVER Gender Identity Not on file Sexual Orientation Not on file documented as of this encounter Plan of Treatment Not on file documented as of this encounter Visit Diagnoses Diagnosis state, incidental- Primary documented in this encounter Care Teams Senior Accounting Clerk Relationship Specialty Start Date End Date Charlie Mera MD NO ADDRESS ON FILE PCP - General 09/19/05 documented as of this encounter
--- OUTSIDE RECORDS SUMMARY | 2024-12-29 01:02 | XMS_ITS | Encounter Summary ---
Author Organization [facility] Address [address] [place] [address] Care Team Providers Care Supervisor Finishing Room Name Role Phone Charlie Mera MD Primary Care Provider Unavailab le Encounter Details Date Type Department Care Team (Late st Contact Info) Description 05/25/2004 Outpatient Historical [facility] [address] [place] [id number] Jb Blanco MD [address] [address] Social History Tobacco Use Types Packs/Day Years Used Date Smoking Tobacco: Never Assessed Comments Unknown Sex and Gender Information Value Date Recorded Sex Assigned at Not on file Legal Sex Female 4:21 AM PAPER FINAL INSPECTOR Gender Identity Not on file Sexual Orientation Not on file documented as of this encounter Plan of Treatment Not on file documented as of this encounter Visit Diagnoses Not on filedocumented in this encounter Care Teams Supervisor Finishing Room Relationship Specialty Start Date End Date Charlie Mera MD NO ADDRESS ON FILE PCP - General 09/19/05 documented as of this encounter
--- OUTSIDE RECORDS SUMMARY | 2024-12-29 01:02 | XMS_ITS | Encounter Summary ---
Author Organization [facility] Address [address] [place] [address] Care Team Providers Care Major Sales Associate Name Role Phone Charlie Mera MD Primary Care Provider Unavailab le Encounter Details Date Type Department Care Team (Late st Contact Info) Description 05/04/2004 Outpatient Historical [facility] [address] [place] [id number] Jb Blanco MD [address] [address] Social History Tobacco Use Types Packs/Day Years Used Date Smoking Tobacco: Never Assessed Comments Unknown Sex and Gender Information Value Date Recorded Sex Assigned at Not on file Legal Sex Female 4:21 AM RELOCATION COMMISSIONER Gender Identity Not on file Sexual Orientation Not on file documented as of this encounter Plan of Treatment Not on file documented as of this encounter Visit Diagnoses Not on filedocumented in this encounter Care Teams Major Sales Associate Relationship Specialty Start Date End Date Charlie Mera MD NO ADDRESS ON FILE PCP - General 09/19/05 documented as of this encounter
--- OUTSIDE RECORDS SUMMARY | 2024-12-29 01:02 | XMS_ITS | Encounter Summary ---
Author Organization [facility] Address [address] [place] [address] Care Team Providers Care Margin Analyst Name Role Phone Ute Betancourt NP Primary Care Provider [phone] Lina Arboleda MD Unavailable [phone] Orly Michaud MD Unavailable [phone] Encounter Details Date Type Department Care Team (Late st Contact Info) Description 04/01/2017 Abstract [facility] AT [address] [address] [place] Social History Tobacco Use Types Packs/Day Years Used Date Smoking Tobacco: Every Day Electronic Cigarettes Smokeless Tobacco: Never Alcohol Use Standard Drinks/Week Comments No 0 (1 standard drink = 0.6 oz pur e alcohol) Comments Unknown Sex and Gender Information Value Date Recorded Sex Assigned at Female 11/07/2024 8:08 AM TOUR DIRECTOR Legal Sex Female 3:59 PM CDT Gender [...] Rule Out 07/25/2020 07/25/2020 07/27/2020 2:31 PM TOUR DIRECTOR COVID-19 Rule Out 02/16/2021 02/16/2021 02/16/2021 9:46 AM CDT COVID-19 Rule Out 05/18/2021 05/18/2021 05/19/2021 4:06 PM CDT documented as of this encounter Care Teams Margin Analyst Relationship Specialty Start Date End Date Ute Betancourt NP [address] [facility] [address] [place] [address] PCP - General FAMILY PRACTICE 03/16/17 Lina Arboleda MD Three [facility]. [address] [place] [address] Wilson Slate Mixer CARDIOVASCULAR DISEASE 03/28/17 Orly Michaud MD [address] [facility] [address] [place] [address] Referring Physician GASTROENTEROLOGY 08/24/19 documented as of this encounter
--- OUTSIDE RECORDS SUMMARY | 2024-12-29 01:02 | XMS_ITS | Encounter Summary ---
Author Organization [employer] Address [address] [place] [address] Care Team Providers Care Gin Feeder Name Role Phone Charlie Mera MD Primary Care Provider Mary tapia Encounter Details Date Type Department Care Team (Late st Contact Info) Description 09/12/2004 Outpatient Historical [facility] Gunner Alvarez MD [address] [place] [address] SUPERVIS OTHER NORMAL PREG (Primary Dx) Social History Tobacco Use Types Packs/Day Years Used Date Smoking Tobacco: Never Assessed Comments Unknown Sex and Gender Information Value Date Recorded Sex Assigned at Not on file Legal Sex Female 4:21 AM PRE PRESS MANAGER Gender Identity Not on file Sexual Orientation Not on file documented as of this encounter Plan of Treatment Not on file documented as of this encounter Visit Diagnoses Diagnosis Supervision of other normal - Primary documented in this encounter Care Teams Gin Feeder Relationship Specialty Start Date End Date Charlie Mera MD NO ADDRESS ON FILE PCP - General 09/19/05 documented as of this encounter
--- OUTSIDE RECORDS SUMMARY | 2024-12-29 01:02 | XMS_ITS | Encounter Summary ---
Author Organization [facility] Address [address] [place] [address] Care Team Providers Care Bench Assembly Inspector Name Role Phone Charlie Mera MD Primary Care Provider Unavailab le Encounter Details Date Type Department Care Team (Late st Contact Info) Description 06/08/2004 Outpatient Historical [facility] [address] [place] [phone] Jb Blanco MD [address] [address] Social History Tobacco Use Types Packs/Day Years Used Date Smoking Tobacco: Never Assessed Comments Unknown Sex and Gender Information Value Date Recorded Sex Assigned at Not on file Legal Sex Female 4:21 AM MANUFACTURING ELECTRICIAN Gender Identity Not on file Sexual Orientation Not on file documented as of this encounter Plan of Treatment Not on file documented as of this encounter Visit Diagnoses Not on filedocumented in this encounter Care Teams Bench Assembly Inspector Relationship Specialty Start Date End Date Charlie Mera MD NO ADDRESS ON FILE PCP - General 09/19/05 documented as of this encounter
--- OUTSIDE RECORDS SUMMARY | 2024-12-29 01:02 | XMS_ITS | Encounter Summary ---
Author Organization [facility] Address [address] [place] [address] Care Team Providers Care Dry Boss Name Role Phone Charlie Mera MD Primary Care Provider Mary le Encounter Details Date Type Department Care Team (Late st Contact Info) Description 06/29/2004 Outpatient Historical [facility] Jb Blanco MD 1400 [facility] [address] [address] [place] [address] SUPERVIS OTHER NORMAL PREG (Primary Dx) Social History Tobacco Use Types Packs/Day Years Used Date Smoking Tobacco: Never Assessed Comments Unknown Sex and Gender Information Value Date Recorded Sex Assigned at Not on file Legal Sex Female 4:21 AM STAFF ACCOUNTANT Gender Identity Not on file Sexual Orientation Not on file documented as of this encounter Plan of Treatment Not on file documented as of this encounter Visit Diagnoses Diagnosis Supervision of other normal - Primary documented in this encounter Care Teams Dry Boss Relationship Specialty Start Date End Date Charlie Mera MD NO ADDRESS ON FILE PCP - General 09/19/05 documented as of this encounter
--- OUTSIDE RECORDS SUMMARY | 2024-12-29 01:02 | XMS_ITS | Encounter Summary ---
Author Organization [employer] Address [address] [place] [address] Care Team Providers Care Awning Frame Maker Name Role Phone Charlie Mera MD Primary Care Provider Mary tapia Encounter Details Date Type Department Care Team (Late st Contact Info) Description 09/05/2004 Outpatient Historical [facility] Gunner Alvarze MD [address] [place] [phone] SUPERVIS OTHER NORMAL PREG (Primary Dx) Social History Tobacco Use Types Packs/Day Years Used Date Smoking Tobacco: Never Assessed Comments Unknown Sex and Gender Information Value Date Recorded Sex Assigned at Not on file Legal Sex Female 4:21 AM SWITCH BOX INSTALLER Gender Identity Not on file Sexual Orientation Not on file documented as of this encounter Plan of Treatment Not on file documented as of this encounter Visit Diagnoses Diagnosis Supervision of other normal - Primary documented in this encounter Care Teams Awning Frame Maker Relationship Specialty Start Date End Date Charlie Mera MD NO ADDRESS ON FILE PCP - General 09/19/05 documented as of this encounter
--- OUTSIDE RECORDS SUMMARY | 2024-12-29 01:02 | XMS_ITS | Encounter Summary ---
Author Organization [facility] Address [address] [place] [address] Care Team Providers Care Hydraulic Press Tender Name Role Phone Ute Betancourt NP Primary Care Provider [phone] Lina Arboleda MD Unavailable [phone] Orly Michaud MD Unavailable [phone] Encounter Details Date Type Department Care Team (Latest Contact Info) Description 03/22/2020 MyChart Message Enc [facility] - [address], [address] [place] [address] Deep Sommers MD [address] [place] [address] [place] [id number] RE: Follow Up/Update Social History Tobacco Use Types Packs/Day Years Used Date Smoking Tobacco: Every Day Electronic Cigarettes Smokeless Tobacco: Never Alcohol Use Standard Drinks/Week Comments No 0 (1 standard drink = 0.6 oz pur e alcohol) Comments No Sex and Gender Information Value Date Recorded Sex Assigned at Female 11/07/2024 8:08 AM PRODUCTION LAPPING MACHINE OPERATOR Legal Sex Female 3:59 PM [...] Rule Out 07/25/2020 07/25/2020 07/27/2020 2:31 PM PRODUCTION LAPPING MACHINE OPERATOR COVID-19 Rule Out 02/16/2021 02/16/2021 02/16/2021 9:46 AM CDT COVID-19 Rule Out 05/18/2021 05/18/2021 05/19/2021 4:06 PM CDT documented as of this encounter Care Teams Hydraulic Press Tender Relationship Specialty Start Date End Date Ute Betancourt NP 3 [facility] [address] [place] [address] PCP - General FAMILY PRACTICE 03/16/17 Lina Arboleda MD [facility]. [address] [place] [address] [place] Building Coordinator CARDIOVASCULAR DISEASE 03/28/17 Orly Michaud MD [address] [facility] [address] [place] [address] Referring Physician GASTROENTEROLOGY 08/24/19 documented as of this encounter
--- OUTSIDE RECORDS SUMMARY | 2024-12-29 01:02 | XMS_ITS | Encounter Summary ---
Author Organization [employer] Address [address] [place] [address] Care Team Providers Care Second Helper Name Role Phone Charlie Mera MD Primary Care Provider Mary le Encounter Details Date Type Department Care Team (Late st Contact Info) Description 06/02/2004 Outpatient [place] [address] [place] [address] SUPERVIS OTHER NORMAL PREG (Primary Dx) Social History Tobacco Use Types Packs/Day Years Used Date Smoking Tobacco: Never Assessed Comments Unknown Sex and Gender Information Value Date Recorded Sex Assigned at Not on file Legal Sex Female 4:21 AM RESEARCH GROUP DIRECTOR Gender Identity Not on file Sexual Orientation Not on file documented as of this encounter Plan of Treatment Not on file documented as of this encounter Visit Diagnoses Diagnosis Supervision of other normal - Primary documented in this encounter Care Teams Second Helper Relationship Specialty Start Date End Date Charlie Mera MD NO ADDRESS ON FILE PCP - General 09/19/05 documented as of this encounter
--- OUTSIDE RECORDS SUMMARY | 2024-12-29 01:02 | XMS_ITS | Encounter Summary ---
Author Organization [employer] Address [address] [place] [address] Care Team Providers Care Automated Equipment Engineer Technician Name Role Phone Charlie Mera MD Primary Care Provider Mary tapia Encounter Details Date Type Department Care Team (Latest Contact Info) Description 06/08/2004 Outpatient Historical HIS PATIENT IN A BED Jackson Theodore MD [address] [facility] [address] [place] [phone] OTHER CURR COND-ANTEPARTUM (Primary Dx) Social History Tobacco Use Types Packs/Day Years Used Date Smoking Tobacco: Never Assessed Comments Unknown Sex and Gender Information Value Date Recorded Sex Assigned at Not on file Legal Sex Female 4:21 AM WAVE SOLDER OFFBEARER Gender Identity Not on file Sexual Orientation Not on file documented as of this encounter Plan of Treatment Not on file documented as of this encounter Visit Diagnoses Diagnosis Other current maternal conditions classifiable elsewhere, antepartum- Primary documented in this encounter Care Teams Automated Equipment Engineer Technician Relationship Specialty Start Date End Date Charlie Mera MD NO ADDRESS ON FILE PCP - General 09/19/05 documented as of this encounter
--- OUTSIDE RECORDS SUMMARY | 2024-12-29 01:02 | XMS_ITS | Encounter Summary ---
Author Organization [employer] Address [address] [place] [address] Care Team Providers Care Green Chain Operator Name Role Phone Charlie Mera MD Primary Care Provider Mary le Encounter Details Date Type Department Care Team (Late st Contact Info) Description 06/29/2004 Outpatient Historical [facility], [address] Jb Blanco MD [address] [facility] [address] [address] [place] [address] PREG STATE, INCIDENTAL (Primary Dx) Social History Tobacco Use Types Packs/Day Years Used Date Smoking Tobacco: Never Assessed Comments Unknown Sex and Gender Information Value Date Recorded Sex Assigned at Not on file Legal Sex Female 4:21 AM SURGICAL CONSULTANT Gender Identity Not on file Sexual Orientation Not on file documented as of this encounter Plan of Treatment Not on file documented as of this encounter Visit Diagnoses Diagnosis state, incidental- Primary documented in this encounter Care Teams Green Chain Operator Relationship Specialty Start Date End Date Charlie Mera MD NO ADDRESS ON FILE PCP - General 09/19/05 documented as of this encounter
--- OUTSIDE RECORDS SUMMARY | 2024-12-29 01:02 | XMS_ITS | Encounter Summary ---
Author Organization [employer] Address [address] [place] [address] Care Team Providers Care Flume Worker Name Role Phone Charlie Mera MD Primary Care Provider Mary tapia Encounter Details Date Type Department Care Team (Late st Contact Info) Description 07/07/2004 Outpatient Historical [facility] Сергей trujillo MD [address] [place] [address] CALCULUS OF KIDNEY (Primary Dx) Social History Tobacco Use Types Packs/Day Years Used Date Smoking Tobacco: Never Assessed Comments Unknown Sex and Gender Information Value Date Recorded Sex Assigned at Not on file Legal Sex Female 4:21 AM TRANSIT COACH OPERATOR Gender Identity Not on file Sexual Orientation Not on file documented as of this encounter Plan of Treatment Not on file documented as of this encounter Visit Diagnoses Diagnosis Calculus of kidney- Primary documented in this encounter Care Teams Flume Worker Relationship Specialty Start Date End Date Charlie Mera MD NO ADDRESS ON FILE PCP - General 09/19/05 documented as of this encounter
--- OUTSIDE RECORDS SUMMARY | 2024-12-29 01:02 | XMS_ITS | Encounter Summary ---
Author Organization [facility] Address [address] [place] [address] Care Team Providers Care Configurator Name Role Phone Ute Betancourt NP Primary Care Provider [phone] Lina Arboleda MD Unavailable [phone] Orly Michaud MD Unavailable Encounter Details Date Type Department Care Team (Late st Contact Info) Description 10/06/2017 Hospital Follow-up Call [facility] [place] [address] Charlene Klein RN Social History Tobacco Use Types Packs/Day Years Used Date Smoking Tobacco: Every Day Electronic Cigarettes Smokeless Tobacco: Never Alcohol Use Standard Drinks/Week Comments No 0 (1 standard drink = 0.6 oz pur e alcohol) Comments Unknown Sex and Gender Information Value Date Recorded Sex Assigned at Female 11/07/2024 8:08 AM MAC ARTIST Legal Sex Female 3:59 PM CDT Gender [...] Rule Out 07/25/2020 07/25/2020 07/27/2020 2:31 PM MAC ARTIST COVID-19 Rule Out 02/16/2021 02/16/2021 02/16/2021 9:46 AM CDT COVID-19 Rule Out 05/18/2021 05/18/2021 05/19/2021 4:06 PM CDT documented as of this encounter Care Teams Configurator Relationship Specialty Start Date End Date Ute Betancourt NP 3 [facility] [address] [place] [address] PCP - General FAMILY PRACTICE 03/16/17 Lina Arboleda MD Three [facility]. [address] [place] [address] [place] Assistant Professor Surgical Technology CARDIOVASCULAR DISEASE 03/28/17 Orly Michaud MD [address] [facility] [address] [place] [address] Referring Physician GASTROENTEROLOGY 08/24/19 documented as of this encounter
--- OUTSIDE RECORDS SUMMARY | 2024-12-29 01:02 | XMS_ITS | Encounter Summary ---
Author Organization [employer] Address [address] [place] [address] Care Team Providers Care Educational Therapist Name Role Phone Charlie Mera MD Primary Care Provider Unavail le Encounter Details Date Type Department Care Team (Late st Contact Info) Description 07/03/2004 Outpatient Historical [facility] Сергей Carbajal MD [address] [place] [address] SUPRF OTHER HIGH RISK (Primary Dx) Social History Tobacco Use Types Packs/Day Years Used Date Smoking Tobacco: Never Assessed Comments Unknown Sex and Gender Information Value Date Recorded Sex Assigned at Not on file Legal Sex Female 4:21 AM DEWATERER OPERATOR Gender Identity Not on file Sexual Orientation Not on file documented as of this encounter Plan of Treatment Not on file documented as of this encounter Visit Diagnoses Diagnosis Supervision of other high-risk (V23.89)- Primary Supervision of other high-risk documented in this encounter Care Teams Educational Therapist Relationship Specialty Start Date End Date Charlie Mera MD NO ADDRESS ON FILE PCP - General 09/19/05 documented as of this encounter
--- OUTSIDE RECORDS SUMMARY | 2024-12-29 01:02 | XMS_ITS | Encounter Summary ---
Author Organization [facility] Address [address] [place] [address] Care Team Providers Care Nursery Rn Name Role Phone Charlie Mera MD Primary Care Provider Unavailab le Encounter Details Date Type Department Care Team (Late st Contact Info) Description 06/29/2004 Outpatient Historical [facility] [address] [place] [address] Jb Blanco MD [address] [address] Social History Tobacco Use Types Packs/Day Years Used Date Smoking Tobacco: Never Assessed Comments Unknown Sex and Gender Information Value Date Recorded Sex Assigned at Not on file Legal Sex Female 4:21 AM ADMINISTRATIVE TECHNICIAN Gender Identity Not on file Sexual Orientation Not on file documented as of this encounter Plan of Treatment Not on file documented as of this encounter Visit Diagnoses Not on filedocumented in this encounter Care Teams Nursery Rn Relationship Specialty Start Date End Date Charlie Mera MD NO ADDRESS ON FILE PCP - General 09/19/05 documented as of this encounter
--- OUTSIDE RECORDS SUMMARY | 2024-12-29 01:02 | XMS_ITS | Encounter Summary ---
Author Organization [employer] Address [address] [place] [address] Care Team Providers Care Coal Hauler Operator Name Role Phone Charlie Mera MD Primary Care Provider Mary le Encounter Details Date Type Department Care Team (Late st Contact Info) Description 06/08/2004 Outpatient Historical [facility] Jb Blanco MD 1400 [facility] [address] [address] [place] [address] SUPERVIS OTHER NORMAL PREG (Primary Dx) Social History Tobacco Use Types Packs/Day Years Used Date Smoking Tobacco: Never Assessed Comments Unknown Sex and Gender Information Value Date Recorded Sex Assigned at Not on file Legal Sex Female 4:21 AM FIELD MARKETING COORDINATOR Gender Identity Not on file Sexual Orientation Not on file documented as of this encounter Plan of Treatment Not on file documented as of this encounter Visit Diagnoses Diagnosis Supervision of other normal - Primary documented in this encounter Care Teams Coal Hauler Operator Relationship Specialty Start Date End Date Charlie Mera MD NO ADDRESS ON FILE PCP - General 09/19/05 documented as of this encounter
--- OUTSIDE RECORDS SUMMARY | 2024-12-29 01:02 | XMS_ITS | Encounter Summary ---
Author Organization [employer] Address [address] [place] [address] Care Team Providers Care Acquisition Advisor Name Role Phone Charlie Mera MD Primary Care Provider Mary tapia Encounter Details Date Type Department Care Team (Late st Contact Info) Description 06/13/2004 Outpatient Historical [facility] Jb Blanco MD 1400 [facility] [address] [address] [place] [address] PLACENTA PREVIA-ANTEPART (Primary Dx) Social History Tobacco Use Types Packs/Day Years Used Date Smoking Tobacco: Never Assessed Comments Unknown Sex and Gender Information Value Date Recorded Sex Assigned at Not on file Legal Sex Female 4:21 AM PATTERNMAKER BENCH Gender Identity Not on file Sexual Orientation Not on file documented as of this encounter Plan of Treatment Not on file documented as of this encounter Visit Diagnoses Diagnosis Placenta previa without hemorrhage, antepartum- Primary documented in this encounter Care Teams Acquisition Advisor Relationship Specialty Start Date End Date Charlie Mera MD NO ADDRESS ON FILE PCP - General 09/19/05 documented as of this encounter
--- OUTSIDE RECORDS SUMMARY | 2024-12-29 01:02 | XMS_ITS | Encounter Summary ---
Author Organization [facility] Address [address] [place] [address] Care Team Providers Care Sales Enablement Lead Name Role Phone Charlie Mera MD Primary Care Provider Mary le Encounter Details Date Type Department Care Team (Late st Contact Info) Description 06/08/2004 Outpatient Historical [facility] Blanco, bJ Garcia MD 1400 [facility] [address] [address] [place] [address] PREG STATE, INCIDENTAL (Primary Dx) Social History Tobacco Use Types Packs/Day Years Used Date Smoking Tobacco: Never Assessed Comments Unknown Sex and Gender Information Value Date Recorded Sex Assigned at Not on file Legal Sex Female 4:21 AM AIR DEFENSE CONTROL OFFICER Gender Identity Not on file Sexual Orientation Not on file documented as of this encounter Plan of Treatment Not on file documented as of this encounter Visit Diagnoses Diagnosis state, incidental- Primary documented in this encounter Care Teams Sales Enablement Lead Relationship Specialty Start Date End Date Charlie Mera MD NO ADDRESS ON FILE PCP - General 09/19/05 documented as of this encounter
--- OUTSIDE RECORDS SUMMARY | 2024-12-29 01:02 | XMS_ITS | Encounter Summary ---
Author Organization [facility] Address [address] [place] [address] Care Team Providers Care Roll Carrier Name Role Phone Ute Betancourt NP Primary Care Provider [phone] Elie Mojica MD Unavailable [phone] Encounter Details Date Type Department Care Team (Late st Contact Info) Description 11/02/2020 Telephone [facility] - Interventional Radiology [facility] [place] [address] Arabella Gomez RN Social History Tobacco Use Types Packs/Day Years Used Date Smoking Tobacco: Every Day Vaping Smokeless Tobacco: Never Alcohol Use Standard Drinks/Week Comments Not Currently 0 (1 standard drink = 0.6 oz pur e alcohol) Comments No Sex and Gender Information Value Date Recorded Sex Assigned at Not on file Legal Sex Female 6:52 AM INFORMATION SYSTEMS SPECIALIST Gender Identity Not on file Sexual Orientation Not on file documented as of this encounter Plan of Treatment Not on file documented as of this encounter Visit Diagnoses Not on filedocumented in this encounter Additional Health Concerns Infection Onset Date Last Indicated Resolved Time COVID: Suspected 09/28/2021 09/28/2021 09/29/2021 6:55 PM INFORMATION SYSTEMS SPECIALIST documented as of this encounter Care Teams Roll Carrier Relationship Specialty Start Date End Date Ute Betancourt NP PCP - General 11/13/19 [place] [address] [place] [address] Consulting Physician Urology 11/03/20 documented as of this encounter
--- OUTSIDE RECORDS SUMMARY | 2024-12-29 01:02 | XMS_ITS | Encounter Summary ---
Author Organization [facility] Address [address] [place] [address] Care Team Providers Care Driller And Reamer Name Role Phone Charlie Mera MD Primary Care Provider Unavailab le Encounter Details Date Type Department Care Team (Late st Contact Info) Description 05/04/2004 Outpatient Historical [facility] [address] [place] [id number] Jb Blanco MD [address] [address] Social History Tobacco Use Types Packs/Day Years Used Date Smoking Tobacco: Never Assessed Comments Unknown Sex and Gender Information Value Date Recorded Sex Assigned at Not on file Legal Sex Female 4:21 AM AIR TABLE OPERATOR Gender Identity Not on file Sexual Orientation Not on file documented as of this encounter Plan of Treatment Not on file documented as of this encounter Visit Diagnoses Not on filedocumented in this encounter Care Teams Driller And Reamer Relationship Specialty Start Date End Date Charlie Mera MD NO ADDRESS ON FILE PCP - General 09/19/05 documented as of this encounter
--- OUTSIDE RECORDS SUMMARY | 2024-12-29 01:02 | XMS_ITS | Encounter Summary ---
Author Organization [employer] Address [address] [place] [address] Care Team Providers Care Pipe Roller Name Role Phone Charlie Mera MD Primary Care Provider Mary le Encounter Details Date Type Department Care Team (Late st Contact Info) Description 07/20/[address] [facility] Burak Ortiz MD NO ADDRESS ON FILE SUPERVIS OTHER NORMAL PREG (Primary Dx) Social History Tobacco Use Types Packs/Day Years Used Date Smoking Tobacco: Never Assessed Comments Unknown Sex and Gender Information Value Date Recorded Sex Assigned at Not on file Legal Sex Female 4:21 AM PAINTER HELPER SIGN Gender Identity Not on file Sexual Orientation Not on file documented as of this encounter Plan of Treatment Not on file documented as of this encounter Visit Diagnoses Diagnosis Supervision of other normal - Primary documented in this encounter Care Teams Pipe Roller Relationship Specialty Start Date End Date Charlie Mera MD NO ADDRESS ON FILE PCP - General 09/19/05 documented as of this encounter
--- OUTSIDE RECORDS SUMMARY | 2024-12-29 01:02 | XMS_ITS | Encounter Summary ---
Author Organization [employer] Address [address] [place] [address] Care Team Providers Care Intake Assessor Name Role Phone Charlie Mera MD Primary Care Provider Unavailab le Encounter Details Date Type Department Care Team (Late st Contact Info) Description 09/07/2004 Outpatient Historical [facility] and Ground [facility] [address] [place] [address] Jackson Theodore MD [address] [place] [address] [place] [address] Social History Tobacco Use Types Packs/Day Years Used Date Smoking Tobacco: Never Assessed Comments Unknown Sex and Gender Information Value Date Recorded Sex Assigned at Not on file Legal Sex Female 4:21 AM BOAT FINISHER Gender Identity Not on file Sexual Orientation Not on file documented as of this encounter Plan of Treatment Not on file documented as of this encounter Visit Diagnoses Not on filedocumented in this encounter Care Teams Intake Assessor Relationship Specialty Start Date End Date Charlie Mera MD NO ADDRESS ON FILE PCP - General 09/19/05 documented as of this encounter
--- OUTSIDE RECORDS SUMMARY | 2024-12-29 01:02 | XMS_ITS | Clinical Summary ---
Author Organization [facility] Address [address] [facility] [place] [address] Care Team Providers Care Corporate Director Of Human Resources Name Role Phone Ute Betancourt SALESPERSON NEW CARS-MEDICAL SOCIAL CONSULTANT Primary Care Provider Source Comments [facility],non-owned Affiliates and Associated Physician Practices is amultiple site organization consisting of ambulatory clinics and hospital sitesin [place], [place], [place] and [place]. This disclosure is being madepursuant to the Care Everywhere program and may not contain all information available regarding this patient. Last updated 18.[facility] Allergies Active Allergy Reactions Criticality Noted Date Comments Sulfa Drugs Anaphylaxis High 06/02/2010 Medications * This document contains information received from the source organization and may not represent a complete record from that organization. * Be aware that medications may not be up to date on this document. Alwaysverify current medications with the patient. linaCLOtide (LINZESS) 290 MCG capsuleIndications :Chronic Idiopathic Constipation Take 290 mcg by mouth daily before breakfast Take on an empty stomach at least 30 minutes prior to first meal of the day. Reasons: Chronic Constipation of Unknown Cause Active mirtazapine (REMERON) 30 MG tabletIndications: Mood Disorder Take 1 tablet by mouth at bedtime Reasons: Mood Disorder 30 tablet 1 05/25/20 20 Active Additional Information Patient taking differently: 7 mgOral AT BEDTIME, Indications: Mood Disorder, Reported on 09/29/2021 pantoprazole EC (PROTONIX) 40 MG tabletIndications: Gastric Hypersecretory Conditions Take 1 tablet by mouth once daily Reasons: Excess Stomach Secretions 30 tablet 1 05/26/20 20 Active furosemide (LASIX) 40 MG tablet 40 mg once daily 02/02/20 21 Active glycopyrrolate (ROBINUL) 1 MG tablet Take 1 mg by mouth once daily as needed Active hydrOXYzine hcl (ATARAX) 25 MG tablet Take 25 mg by mouth every 6 hours as needed 11/18/19 21 Active potassium chloride ER (KLOR-CON M) 20 MEQ tablet 20 mEq 3 times daily 02/15/20 21 Active rOPINIRole (REQUIP) 0.5 MG tablet TAKE 1 TABLET BY MOUTH EVERY DAY AT BEDTIME 01/26/20 21 Active sucralfate (CARAFATE) 1 GM tablet Take [...] once daily Active clonazePAM (KLONOPIN) 0.5 MG tabletIndications: Chronic motor tic,Myoclonus Take 0.5 mg three times daily for 4 (four) days, then 0.5 mg twice daily for 4 (four) days and 0.5 mg daily for 4 (four) days and stop it. 30 tablet 01/13/20 22 Active guanFACINE CR 24hr (Intuniv) 1 MG tabletIndications: tics Take 1 (one) tablet by mouth every morning Reasons: tics 30 tablet 4 10/29/19 23 Active Active Problems Problem Noted Date Diagnosed Date Elevated liver enzymes 09/29/2021 Chronic kidney disease 08/30/2021 Fatty liver 11/28/2020 Overview (12/14/2021): 12/14/21 Fibroscan CAP 278, LSM 5.9 kPa Bipolar affective disorder, current episode mixe d 05/16/2020 Bipolar disorder 03/27/2012 Myoclonus 06/07/2010 Immunizations Immunization Administration Dates Next Due Covid Pfizer primary monoval ent 12+ yr 0.3mL [...] on file Legal Sex Female 5:55 AM ADMITTING REPRESENTATIVE Gender Identity Not on file Sexual [...] cm (5' 6 ) 09/29/2021 10:46 AM ADMITTING REPRESENTATIVE Body Mass Index 30.21 09/29/2021 10:46 AM ADMITTING REPRESENTATIVE Plan of Treatment Health Maintenance Due Date Last Done Comments COLOGUARD (AGES 45-75) - COLON CA SCREENING 1970 COLON MONITORING 1970 COLONOSCOPY [...] of 2) 2020 COVID-19 VACCINE (3 - season) 2024 04/19/2021, 03/29/2021 INFLUENZA VACCINE (Season Ended) 2025 LIPID TESTING 10/23/2025 10/23/2020, 01/2020, 05/18/2020 HEPATITIS C SCREENING Completed 09/29/2021 , 12/02/2020, 12/02/2020, Additional history exists HIB VACCINE Aged Out No longer eligi ble based on patient's age to complete this topic HPV VACCINE Aged Out No longer eligi ble based on patient's age to complete this topic MENINGOCOCCAL (Group B) VACCINE SHARED DECISION-MAKING Aged Out No longer eligible based on patient's age to complete this topic MENINGOCOCCAL GROUPS A/C/Y/W VACCINE Aged Out No longer eligible based on patient's age to complete this topic Goals Goal Patient Goal Type Associated Problems Recent Progress Patient-Stated? Author Medication Management General On track( 022 11:05 AM ADMITTING REPRESENTATIVE) Ze Tolbert, RN Note: Expected end date: Interventions: Take all medications as prescribed Let your doctor know right away about any changes in your medications Make sure to request a refill of your medication at least one week prior to your last dose Procedures Procedure Name Priority Date/Time Associated Diagnosis Comments HEPATITIS C ANTIBODY Routine 09/29/2021 1:12 PM ADMITTING REPRESENTATIVE Elevated liver enzymes LIPID PROFILE Routine 05/21/2020 1:24 AM CDT from Last 3 Months or Most Recently Relevant to Health Maintenance Results * HEPATITIS C ANTIBODY (09/29/2021 1:12 PM ADMITTING REPRESENTATIVE) Hepatitis C Antibody Non-react robert Non-reac tive 09/29/2021 4:27 PM ADMITTING REPRESENTATIVE [facility] Comment:Hepatitis C Antibody screen indicates [...] Lab Venipuncture / Unknown 09/29/2021 1:12 PM ADMITTING REPRESENTATIVE 09/29/2021 2:31 PM ADMITTING REPRESENTATIVE Abby Zuniga SALESPERSON NEW CARS-MEDICAL SOCIAL CONSULTANT LAB - CHEMISTRY ORD ERABLES Final Result [facility] [address] [place] [address], [facility] [phone] * LIPID PROFILE (05/21/2020 1:24 AM CDT) [facility] Cholesterol 173 <200 mg/dL 05/21/2020 1:51 AM CDT [facility] Triglycerides 120 <150 mg/dL 05/21/2020 1:51 AM CDT [facility] HDL Cholesterol 62 >40 mg/dL 0 1:51 AM CDT [facility] LDL Calculated 87 <130 mg/dL 05/21/2020 1:51 AM CDT [facility] VLDL Calculated 24 <=30 mg/dL 0 1:51 AM CDT [facility] Chol HDL Ratio 2.8 <4.5 05/21/2020 1:51 AM CDT [facility] LDL/HDL Ratio 1.4 <5.0 05/21/2020 1:51 AM CDT [facility] Blood BLOOD SPECIMEN / Unknown Venipuncture / Unknown 05/21/2020 1:24 AM CDT 05/21/2020 1:30 AM CDT Elie Galicia MD LAB - CHEMISTRY ORDERABLES Fin al Result [facility] [address] [place] [address] from Last 3 Months or Most Recently Relevant to Health Maintenance Insurance MEDICAID - OUT OF CRITICAL ACCESS HOSPITAL UHC MANAGED MEDICARE ADV MEDICARE [place] - [place] [facility] MEDICARE [place]ICAID - [place] Advance Directives * Full Code (Latest Code Status on File) Date Activated Date Inactivated Comments 05/16/2020 11:13 PM 05/25/2020 7:27 PM Care Teams Corporate Director Of Human Resources Relationship Specialty Start Date End Date Ute Betancourt APRN-CNP [address] [place], [place] [id number] PCP - General 03/25/18
--- OUTSIDE RECORDS SUMMARY | 2024-12-29 01:02 | XMS_ITS | Encounter Summary ---
Author Organization [employer] Address [address] [place] [address] Care Team Providers Care Screening Unit Registered Nurse Name Role Phone Charlie Mera MD Primary Care Provider Mary le Encounter Details Date Type Department Care Team (Late st Contact Info) Description 11/16/2003 Inpatient Historical HIS [place] [address] [facility] EXEC[facility]IVE [facility] [address] [place] [address] Ted Brooks ACUTE PYELONEPHRITIS NOS (Primary Dx) Social History Tobacco Use Types Packs/Day Years Used Date Smoking Tobacco: Never Assessed Comments Unknown Sex and Gender Information Value Date Recorded Sex Assigned at Not on file Legal Sex Female 4:21 AM 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
--- OUTSIDE RECORDS SUMMARY | 2024-12-29 01:02 | XMS_ITS ---
Author Organization [facility] Address [address] [place] [address] Care Team Providers Care Fertilizing Machine Operator Name Role Phone Shelton Kraus Primary Care Provider [phone] Allergies Allergen (clinical drug ingredient) Drug/Non Drug [...] Active Encounters Encounter Location Date Provider Diagnosis [address] [place] [address] 11/11/2024 Shelton Kraus Bipolar II disorder F31.81 [...] number to the 24-hour crisis line at [facility]. Questions addressed. Client verbalized understanding of [...] number to the 24-hour crisis line at [facility]. Questions addressed. Client verbalized understanding of all information and is agreeable to treatment plan. Next Appt Details Follow Up: 3 Months, Reason: Psych F/U - In-Person or Telehealth Progress Notes * Anh ZENDEJASDOB: 1 (53 yo F)Acc No.[id number]:11/11/2024 Patient: Anh SIDDIQUI Provider: Arabella Kraus DNP, PMHNP-BC :1970 A ge:53 Y S ex:Female Date:11/11/2024 Address:[address] [address] [address] [facility] Subjective: * Chief Complaints: * 3 [...] required at this time.. S uicidal Assessment: Sharon Screening H ave you wished you were [...] her recovery period. She lives paycheck to [facility] and lacks short-term disability coverage. She is [...] Work history/current job doesn't work, worked a [employer] for a few months , worked at [employer] for about 13 years, she is on [...] to chart) Doctors Neurologist: Artemio Donald MD Former Hand: Ramona Bhatt MD Zinc Plater: Harley CAMEJO ([facility]) Urologist: [facility]. * ROS: P sych ROS: [...] Work history/current job doesn't work, worked a [employer] for a few months , worked at [employer] for about 13 years, she is on [...] number to the 24-hour crisis line at [facility]. Questions addressed. Client verbalized understanding of all information and is agreeable to treatment plan. * Procedure Codes: * Follow Up: 3 Months (Reason: Psych F/U - In-Person or Telehealth) * * EMERGENCY ROOM Sign off status: Completed true * Provider: Arabella Kraus DNP, PMHNP- Date: 0 11/11/2024 Generated for Bowen Salmon/Ksenia on: 0 12/29/2024 01:02 AM CDT History and Physical Notes * HPI (History of Present Illness) Category Sub-Category Detail Notes Category Not es Suicidal Assessment Sharon Screening Have you wished you were or [...]
--- OUTSIDE RECORDS SUMMARY | 2024-12-29 01:02 | XMS_ITS | Encounter Summary ---
Author Organization [employer] Address [address] [place] [address] Care Team Providers Care Seed Analyst Name Role Phone Charlie Mera MD Primary Care Provider Mary le Encounter Details Date Type Department Care Team (Late st Contact Info) Description 05/04/2004 Outpatient Historical [facility] MD [facility] [address] [address] [place] [address] SUPERVIS OTHER NORMAL PREG (Primary Dx) Social History Tobacco Use Types Packs/Day Years Used Date Smoking Tobacco: Never Assessed Comments Unknown Sex and Gender Information Value Date Recorded Sex Assigned at Not on file Legal Sex Female 4:21 AM TELEGRAPH 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
--- OUTSIDE RECORDS SUMMARY | 2024-12-29 01:02 | XMS_ITS | Encounter Summary ---
Author Organization [email or web address] Address [address] [place] [address] Care Team Providers Care Dressmaker Helper Name Role Phone Charlie Mera MD Primary Care Provider Unavailab le Encounter Details Date Type Department Care Team (Late st Contact Info) Description 06/13/2004 Outpatient Historical [facility] Maternal and Ground Floor [address] [place] [address] Jackson Theodore MD [address] [place] [address] [place] [address] Social History Tobacco Use Types Packs/Day Years Used Date Smoking Tobacco: Never Assessed Comments Unknown Sex and Gender Information Value Date Recorded Sex Assigned at Not on file Legal Sex Female 4:21 AM ASSET MANAGEMENT COORDINATOR Gender Identity Not on file Sexual Orientation Not on file documented as of this encounter Plan of Treatment Not on file documented as of this encounter Visit Diagnoses Not on filedocumented in this encounter Care Teams Dressmaker Helper Relationship Specialty Start Date End Date Charlie Mera MD NO ADDRESS ON FILE PCP - General 09/19/05 documented as of this encounter
--- OUTSIDE RECORDS SUMMARY | 2024-12-29 01:02 | XMS_ITS | Encounter Summary ---
Author Organization [facility] Address [address] [place] [address] Care Team Providers Care Service Dog Trainer Name Role Phone Charlie Mera MD Primary Care Provider Unavailab le Encounter Details Date Type Department Care Team (Late st Contact Info) Description 07/03/2004 Outpatient Historical [facility] [address] [place] [address] Сергей Carbajal MD [address] [place] [address] Social History Tobacco Use Types Packs/Day Years Used Date Smoking Tobacco: Never Assessed Comments Unknown Sex and Gender Information Value Date Recorded Sex Assigned at Not on file Legal Sex Female 4:21 AM DAIRY SCIENTIST Gender Identity Not on file Sexual Orientation Not on file documented as of this encounter Plan of Treatment Not on file documented as of this encounter Visit Diagnoses Not on filedocumented in this encounter Care Teams Service Dog Trainer Relationship Specialty Start Date End Date Charlie Mera MD NO ADDRESS ON FILE PCP - General 09/19/05 documented as of this encounter
--- OUTSIDE RECORDS SUMMARY | 2024-12-29 01:02 | XMS_ITS | Encounter Summary ---
Author Organization [facility] Address [address] [place] [address] Care Team Providers Care Office Services Specialist Name Role Phone Ute Betancourt NP Primary Care Provider [phone] Elie Mojica MD Unavailable [phone] Encounter Details Date Type Department Care Team (Late st Contact Info) Description 10/31/2020 Telephone [facility] - Interventional Radiology [facility] [place] [address] Arabella Gomez RN Social History Tobacco Use Types Packs/Day Years Used Date Smoking Tobacco: Every Day Vaping Smokeless Tobacco: Never Alcohol Use Standard Drinks/Week Comments Not Currently 0 (1 standard drink = 0.6 oz pur e alcohol) Comments Unknown Sex and Gender Information Value Date Recorded Sex Assigned at Not on file Legal Sex Female 6:52 AM GROUTER HELPER Gender Identity Not on file Sexual Orientation Not on file documented as of this encounter Plan of Treatment Not on file documented as of this encounter Visit Diagnoses Not on filedocumented in this encounter Additional Health Concerns Infection Onset Date Last Indicated Resolved Time COVID: Suspected 09/28/2021 09/28/2021 09/29/2021 6:55 PM GROUTER HELPER documented as of this encounter Care Teams Office Services Specialist Relationship Specialty Start Date End Date Ute Betancourt NP PCP - General 11/13/19 [place] [address] [place] [address] Consulting Physician Urology 11/03/20 documented as of this encounter
--- OUTSIDE RECORDS SUMMARY | 2024-12-29 01:02 | XMS_ITS ---
Author Organization [facility] Address [address] [place] [address] Care Team Providers Care Metallurgical Engineering Technician Name Role Phone Shelton Kraus Primary Care [...] Active Encounters Encounter Location Date Provider Diagnosis [address] [place] [address] 08/10/2024 Sheltonlaura Kraus Bipolar II disorder F31.81 [...] to the 24-hour crisis line at [facility]. Questions addressed. Client verbalized understanding of [...] to the 24-hour crisis line at [facility]. Questions addressed. Client verbalized understanding of all information and is agreeable to treatment plan. Next Appt Details Follow Up: 3 Months, Reason: Medication management - can be telehealth appt. or in office appt. Progress Notes * Anh ZENDEJASDOB: 1 (53 yo F)Acc No.[id number]:08/10/2024 Patient: Anh SIDDIQUI Provider: Arabella Kraus DNP, [facility]1970 A ge:53 Y S ex:Female Date:08/10/2024 Address:[address] [place] [address] [address] [facility] Subjective: * Chief Complaints: * 3 [...] My one son got a job at [employer]. My other son is working at the [employer] still. My daughter is coming in town [...] son Marcelino (19 yo) wants to do museum security chief training and is looking at [employer]. That her 18 yo quit [employer] and is working at [employer]. Just celebrated one year anniversary with boyfriend. [...] Work history/current job doesn't work, worked a [employer] for a few months , worked at [employer] for about 13 years, she is on [...] to chart) Doctors Neurologist: Artemio Donald MD Cyber Crime Investigator: Ramona Bhatt MD Telephone Mechanic: Harley CAMEJO ([facility]) Urologist: [facility]. * ROS: P sych ROS: GI R [...] Work history/current job doesn't work, worked a [employer] for a few months , worked at [employer] for about 13 years, she is on [...] to the 24-hour crisis line at [facility]. Questions addressed. Client verbalized understanding of all information and is agreeable to treatment plan. * Procedure Codes: * Follow Up: 3 Months (Reason: Medication management - can be telehealth appt. or in office appt.) * * AEOLOGIST Sign off status: Completed true * Provider: Arabella Kraus DNP, PMP- Date: 10/10/2023 Generated for Brookei shashi/Fanikkig/eTransmitting on: 0 12/29/2024 01:02 AM CDT History [...]
--- OUTSIDE RECORDS SUMMARY | 2024-12-29 01:02 | XMS_ITS | Encounter Summary ---
Author Organization [employer] Address [address] [place] [address] Care Team Providers Care Joinery Setter Out Name Role Phone Charlie Mera MD Primary Care Provider Mary tapia Encounter Details Date Type Department Care Team (Latest Contact Info) Description 07/12/2004 Outpatient Historical [facility] IN A BED Сергей Carbajal MD [address] [place] [address] PREG COMPL NEC-ANTEPART (Primary Dx) Social History Tobacco Use Types Packs/Day Years Used Date Smoking Tobacco: Never Assessed Comments Unknown Sex and Gender Information Value Date Recorded Sex Assigned at Not on file Legal Sex Female 4:21 AM EMPLOYMENT SPECIALIST/PROGRAM MANAGER Gender Identity Not on file Sexual Orientation Not on file documented as of this encounter Plan of Treatment Not on file documented as of this encounter Visit Diagnoses Diagnosis Other specified complication, antepartum(646.83)- Primary Other specified complication, antepartum documented in this encounter Care Teams Joinery Setter Out Relationship Specialty Start Date End Date Charlie Mera MD NO ADDRESS ON FILE PCP - General 09/19/05 documented as of this encounter
--- OUTSIDE RECORDS SUMMARY | 2024-12-29 01:02 | XMS_ITS | Encounter Summary ---
Author Organization [facility] Address [address] [place] [address] Care Team Providers Care Snap Shearer Name Role Phone Charlie Mera MD Primary Care Provider Unavailab le Encounter Details Date Type Department Care Team (Late st Contact Info) Description 08/31/2004 Outpatient Historical [facility] [address] [place] [address] Jb Blanco MD [address] [address] Social History Tobacco Use Types Packs/Day Years Used Date Smoking Tobacco: Never Assessed Comments Unknown Sex and Gender Information Value Date Recorded Sex Assigned at Not on file Legal Sex Female 4:21 AM PATTERN FITTER Gender Identity Not on file Sexual Orientation Not on file documented as of this encounter Plan of Treatment Not on file documented as of this encounter Visit Diagnoses Not on filedocumented in this encounter Care Teams Snap Shearer Relationship Specialty Start Date End Date Charlie Mera MD NO ADDRESS ON FILE PCP - General 09/19/05 documented as of this encounter
--- OUTSIDE RECORDS SUMMARY | 2024-12-29 01:02 | XMS_ITS | Encounter Summary ---
Author Organization [employer] Address [address] [place] [address] Care Team Providers Care Certified Breastfeeding Educator Name Role Phone Charlie Mera MD Primary Care Provider Mary le Encounter Details Date Type Department Care Team (Late st Contact Info) Description 05/04/2004 Outpatient Historical [facility], [address] Jb Blanco MD [address] [facility] [address] [address] [place] [address] PREG STATE, INCIDENTAL (Primary Dx) Social History Tobacco Use Types Packs/Day Years Used Date Smoking Tobacco: Never Assessed Comments Unknown Sex and Gender Information Value Date Recorded Sex Assigned at Not on file Legal Sex Female 4:21 AM GENERATION MECHANIC HELPER Gender Identity Not on file Sexual Orientation Not on file documented as of this encounter Plan of Treatment Not on file documented as of this encounter Visit Diagnoses Diagnosis state, incidental- Primary documented in this encounter Care Teams Certified Breastfeeding Educator Relationship Specialty Start Date End Date Charlie Mera MD NO ADDRESS ON FILE PCP - General 09/19/05 documented as of this encounter
--- OUTSIDE RECORDS SUMMARY | 2024-12-29 01:02 | XMS_ITS | Encounter Summary ---
Author Organization [employer] Address [address] [place] [address] Care Team Providers Care Microsoft Dynamics Ax Consultant Name Role Phone Charlie Mera MD Primary Care Provider Mary le Encounter Details Date Type Department Care Team (Late st Contact Info) Description 05/25/2004 Outpatient Historical [facility], [address] Jb Blanco MD [address] [facility] [address] [address] [place] [address] ABDOMINAL PAIN UNSPEC SITE (Primary Dx) Social History Tobacco Use Types Packs/Day Years Used Date Smoking Tobacco: Never Assessed Comments Unknown Sex and Gender Information Value Date Recorded Sex Assigned at Not on file Legal Sex Female 4:21 AM ELECTRONIC GLUING MACHINE OPERATOR Gender Identity Not on file Sexual Orientation Not on file documented as of this encounter Plan of Treatment Not on file documented as of this encounter Visit Diagnoses Diagnosis Abdominal pain, unspecified site- Primary documented in this encounter Care Teams Microsoft Dynamics Ax Consultant Relationship Specialty Start Date End Date Charlie Mera MD NO ADDRESS ON FILE PCP - General 09/19/05 documented as of this encounter
--- OUTSIDE RECORDS SUMMARY | 2024-12-29 01:02 | XMS_ITS | Encounter Summary ---
Author Organization [employer] Address [address] [place] [address] Care Team Providers Care Engineer Rf Deployment Name Role Phone Charlie Mera MD Primary Care Provider Unavailab le Encounter Details Date Type Department Care Team (Late st Contact Info) Description 05/04/2004 Outpatient Historical [facility], [address] Jb Blanco MD [address] [facility] [address] [place] [address] Sangita Bravo, DO [address] [facility] [address] [address] PREG STATE, INCIDENTAL (Primary Dx) Social History Tobacco Use Types Packs/Day Years Used Date Smoking Tobacco: Never Assessed Comments Unknown Sex and Gender Information Value Date Recorded Sex Assigned at Not on file Legal Sex Female 4:21 AM REPORTER ANCHOR Gender Identity Not on file Sexual Orientation Not on file documented as of this encounter Plan of Treatment Not on file documented as of this encounter Visit Diagnoses Diagnosis state, incidental- Primary documented in this encounter Care Teams Engineer Rf Deployment Relationship Specialty Start Date End Date Charlie Mera MD NO ADDRESS ON FILE PCP - General 09/19/05 documented as of this encounter
--- OUTSIDE RECORDS SUMMARY | 2024-12-29 01:03 | XMS_ITS | Encounter Summary ---
Author Organization [facility] Address [address] [place] [address] Care Team Providers Care Wardrobe Specialty Worker Name Role Phone Charlie Mera MD Primary Care Provider Unavailab le Encounter Details Date Type Department Care Team (Late st Contact Info) Description 07/03/[address] [facility] and [facility] [address] [place] [address] Pratik Asencio DO [address] [facility] [place], [place] [id number] Social History Tobacco Use Types Packs/Day Years Used Date Smoking Tobacco: Never Assessed Comments Unknown Sex and Gender Information Value Date Recorded Sex Assigned at Not on file Legal Sex Female 4:21 AM BUSINESS CONTINUITY GLOBAL DIRECTOR Gender Identity Not on file Sexual Orientation Not on file documented as of this encounter Plan of Treatment Not on file documented as of this encounter Visit Diagnoses Not on filedocumented in this encounter Care Teams Wardrobe Specialty Worker Relationship Specialty Start Date End Date Charlie Mera MD NO ADDRESS ON FILE PCP - General 09/19/05 documented as of this encounter
--- OUTSIDE RECORDS SUMMARY | 2024-12-29 01:03 | XMS_ITS | Encounter Summary ---
Author Organization [facility] Address [address] [place] [address] Care Team Providers Care Field Sales Manager Name Role Phone Charlie Mera MD Primary Care Provider Unavailab le Encounter Details Date Type Department Care Team (Late st Contact Info) Description 07/03/2005 Outpatient Historical [facility] Maternal and Ground Floor [address] [place] [address] Pratik Asencio DO [address] [facility] [address]- [place], [place] [id number] Social History Tobacco Use Types Packs/Day Years Used Date Smoking Tobacco: Never Assessed Comments Unknown Sex and Gender Information Value Date Recorded Sex Assigned at Not on file Legal Sex Female 4:21 AM IMPLEMENTATION ANALYST Gender Identity Not on file Sexual Orientation Not on file documented as of this encounter Plan of Treatment Not on file documented as of this encounter Visit Diagnoses Not on filedocumented in this encounter Care Teams Field Sales Manager Relationship Specialty Start Date End Date Charlie Mera MD NO ADDRESS ON FILE PCP - General 09/19/05 documented as of this encounter
--- OUTSIDE RECORDS SUMMARY | 2024-12-29 01:03 | XMS_ITS | Encounter Summary ---
Author Organization [employer] Address [address] [place] [address] Care Team Providers Care Tankerman Name Role Phone Charlie Mera MD Primary Care Provider Mary le Encounter Details Date Type Department Care Team (Late st Contact Info) Description 04/03/2004 Outpatient Historical [place] [address] [facility] [address] [place] [address] HEMORRHAGE NOS (Primary Dx) Social History Tobacco Use Types Packs/Day Years Used Date Smoking Tobacco: Never Assessed Comments Unknown Sex and Gender Information Value Date Recorded Sex Assigned at Not on file Legal Sex Female 4:21 AM COOPERATIVE MANAGER Gender Identity Not on file Sexual Orientation Not on file documented as of this encounter Plan of Treatment Not on file documented as of this encounter Visit Diagnoses Diagnosis Hemorrhage, unspecified- Primary documented in this encounter Care Teams Tankerman Relationship Specialty Start Date End Date Charlie Mera MD NO ADDRESS ON FILE PCP - General 09/19/05 documented as of this encounter
--- OUTSIDE RECORDS SUMMARY | 2024-12-29 01:03 | XMS_ITS | Encounter Summary ---
Author Organization [employer] Address [address] [place] [address] Care Team Providers Care Forklift Technician Name Role Phone Charlie Mera MD Primary Care Provider Mary tapia Encounter Details Date Type Department Care Team (Latest Contact Info) Description 07/01/2005 Outpatient Historical [facility] Pratik Asencio, [address] [facility] [address] [address] RENAL DIS NOS-ANTEPARTUM (Primary Dx) Social History Tobacco Use Types Packs/Day Years Used Date Smoking Tobacco: Never Assessed Comments Unknown Sex and Gender Information Value Date Recorded Sex Assigned at Not on file Legal Sex Female 4:21 AM ENGAGEMENT SPECIALIST Gender Identity Not on file Sexual Orientation Not on file documented as of this encounter Plan of Treatment Not on file documented as of this encounter Visit Diagnoses Diagnosis 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
--- OUTSIDE RECORDS SUMMARY | 2024-12-29 01:03 | XMS_ITS | Encounter Summary ---
Author Organization [employer] Address [address] [place] [address] Care Team Providers Care Engineering Mgr Name Role Phone Charlie Mera MD Primary Care Provider Mary tapia Encounter Details Date Type Department Care Team (Late st Contact Info) Description 01/01/2006 [facility] NO ADDRESS ON FILE Abdominal Pain, Other Specified Site (Primary Dx) Social History Tobacco Use Types Packs/Day Years Used Date Smoking Tobacco: Never Assessed Comments Unknown Sex and Gender Information Value Date Recorded Sex Assigned at Not on file Legal Sex Female 4:21 AM PHOTO PRINT SPECIALIST Gender Identity Not on file Sexual Orientation Not on file documented as of this encounter Plan of Treatment Not on file documented as of this encounter Visit Diagnoses Diagnosis Abdominal pain, other specified site- Primary documented in this encounter Care Teams Engineering Mgr Relationship Specialty Start Date End Date Charlie Mera MD NO ADDRESS ON FILE PCP - General 09/19/05 documented as of this encounter
--- OUTSIDE RECORDS SUMMARY | 2024-12-29 01:03 | XMS_ITS | Encounter Summary ---
Author Organization [employer] Address [address] [place] [address] Care Team Providers Care Attorney At Law Name Role Phone Charlie Mera MD Primary [...] on file Legal Sex Female 4:21 AM FISH HATCHERY SUPERVISOR Gender Identity Not on file Sexual Orientation Not on file documented as of this encounter Plan of Treatment Not on file documented as of this encounter Procedures Procedure Name Priority Date/Time Associated Diagnosis Comments HEMOGLOBIN AND HEMATOCRIT Routine 11/12/2005 7:45 AM FISH HATCHERY SUPERVISOR POC , URINE Routine 11/12/2005 7:38 AM FISH HATCHERY SUPERVISOR documented in this encounter Results * HEMOGLOBIN AND HEMATOCRIT (11/12/2005 7:45 AM FISH HATCHERY SUPERVISOR) HEMOGLOBIN 13.2 11.8 - 14.8 g/dL INTERFACE SYSTEM HEMATOCRIT 39.0 35.5 - 44.0 % INTERFACE SYSTEM 11/12/2005 7:45 AM FISH HATCHERY SUPERVISOR us Brte Templeton MD HEMATOLOGY ORDERABLES Gina l Result INTERFACE SYSTEM Refer to clinic/hospital department * POC , URINE (11/12/2005 7:38 AM FISH HATCHERY SUPERVISOR) HCG QUAL URINE Negative Negative INTER FACE SYSTEM SPECIFIC GRAVITY UA 1.020 1.001 - 1.035 INTERFACE SYSTEM 11/12/2005 7:38 AM FISH HATCHERY SUPERVISOR Bret Templeton MD POINT OF CARE TESTING Gina gaspar Result INTERFACE SYSTEM Refer to clinic/hospital department documented in this encounter Visit Diagnoses Diagnosis Calculus of kidney- Primary documented in this encounter Care Teams Attorney At Law Relationship Specialty Start Date End Date Charlie Mera MD NO ADDRESS ON FILE PCP - General 09/19/05 documented as of this encounter
--- OUTSIDE RECORDS SUMMARY | 2024-12-29 01:03 | XMS_ITS | Encounter Summary ---
Author Organization [facility] Address [address] [place] [address] Care Team Providers Care Fire Control Mechanic Name Role Phone Charlie Mera MD Primary Care Provider Unavailab le Encounter Details Date Type Department Care Team (Late st Contact Info) Description 04/25/2004 Outpatient Historical [facility] [address] [place] [address] Gunner Alvarez MD [address] [facility] [address] [facility] [place] [address] Social History Tobacco Use Types Packs/Day Years Used Date Smoking Tobacco: Never Assessed Comments Unknown Sex and Gender Information Value Date Recorded Sex Assigned at Not on file Legal Sex Female 4:21 AM STOCK CLIPPER Gender Identity Not on file Sexual Orientation Not on file documented as of this encounter Plan of Treatment Not on file documented as of this encounter Visit Diagnoses Not on filedocumented in this encounter Care Teams Fire Control Mechanic Relationship Specialty Start Date End Date Charlie Mera MD NO ADDRESS ON FILE PCP - General 09/19/05 documented as of this encounter
--- OUTSIDE RECORDS SUMMARY | 2024-12-29 01:03 | XMS_ITS | Clinical Summary ---
Author Organization [facility] Address [address] [place] [address] Phone Care Team Providers Care Radio Maintainer Name Role Phone Ute Betancourt MD Primary Care Provider [phone] Allergies Active Allergy Reactions Criticality Noted Date Comments Acetaminophen Palpitations Low 10/07/2021 Liver problem Sulfa Antibiotics 10/10/2020 Other reaction(s): hives Wound Dressing Adhesive Rash Medium 10/31/2020 Silk tape gives me rash Medications hydrOXYzine (ATARAX) 25 MG tablet Take 25 mg by mouth 4 times a day Active Multiple Vitamins-Minera ls (MULTI FOR HER PO) Take by mouth [...] mouth 1 (one) time each day Active HYDROcodone-casey taminophen (NORCO) 7.5-325 MG per tablet Take 1 [...] mg by mouth 1 (one) time Active [place]-3 Fatty Acids (Fish Oil) 1000 MG capsule delayed-release Take 2 capsules by mouth in the morning and 2 capsules in the evening. Active cetirizine (ZyrTEC) 10 MG tablet Take 10 mg by mouth 1 (one) time each day Active Active Problems Problem Noted Date Diagnosed Date Chronic kidney disease 08/30/2021 Hypokalemia 03/02/2021 Fluid retention 10/18/2020 Resolved Problems Problem Noted Date Diagnosed Date Resolved Date Palpitations 03/02/2021 08/29/2021 Abnormal weight gain 02/22/2021 021 Fatty liver 11/28/2020 03/02/2021 Hypoalbuminemia 11/28/2020 02/22/2021 Serum creatinine raised 10/10/20202 09/2020 H/O: urinary stone 10/10/2020 Encounters Date Type Department Care Team Description 11/11/2024 4:20 PM SENIOR GAME DEVELOPER Office Visit [facility] [address] [place] [address] Daniel Chun MD Chronic kidney disease, not otherwise specified (Primary Dx); Fluid retention, not otherwise specified 10/19/2024 Refill [facility] [address] [place] [address] Daniel Chun MD from Last 3 Months Family History Medical History Relation Comments Cancer Father Heart disease Father Hypertension Father Cancer Mother Diabetes Mother Hypertension Mother Relation Status Comments Father Mother Social History Tobacco Use Types Packs/Day Years Used Date Smoking Tobacco: Former Cigarettes Smokeless Tobacco: Never Tobacco Cessation:Counseling Given: Not Answered Comments Unknown Sex and Gender Information Value Date Recorded Sex Assigned at Not on file Legal Sex Female 3:11 PM [facility] Gender Identity Not on file Sexual Orientation Not on file Last Filed Vital Signs Vital Sign Reading Time Taken Comments Blood Pressure 116/69 11/11/2024 4:15 PM SENIOR GAME DEVELOPER Pulse 85 11/11/2024 4:15 PM SENIOR GAME DEVELOPER Temperature 36.6 C (97.9 F) 08/30/2021 1:49 PM SENIOR GAME DEVELOPER Respiratory Rate - - Oxygen Saturation - - Inhaled Oxygen Concentration - - Weight 81.6 kg (180 lb) 11/11/2024 4:15 PM SENIOR GAME DEVELOPER Height 165.1 cm (5' 5 ) 11/11/2024 4:15 PM SENIOR GAME DEVELOPER Body Mass Index 29.95 11/11/2024 4:15 PM SENIOR GAME DEVELOPER Plan of Treatment Upcoming Encounters Date Type Department Care Team (Late st Contact Info) Description 11/10/2025 4:40 PM SENIOR GAME DEVELOPER Office Visit [facility] [address] [facility] [address] [place] [address] Daniel Chun MD [address] [facility] 1 [place], [place] [id number] Health Maintenance Due Date Last Done Comments Pneumococcal PPSV23 Highest Risk Adult (1 of 3 - PCV13 ) 1989 Influenza Vaccine (Season Ended) 2025 Insurance [facility] [employer] MEDICARE Care Teams Radio Maintainer Relationship Specialty Start Date End Date Ute Betancourt MD [address] [place] [address] PCP - General 07/18/20
--- OUTSIDE RECORDS SUMMARY | 2024-12-29 01:03 | XMS_ITS | Clinical Summary ---
Author Organization [employer] Address [address] [facility] Attn: Epic Prelude ADT [place] [address] Care Team Providers Care Gunsmith Apprentice Name Role Phone Charlie Mera MD Primary Care Provider Unavailab le Social History Tobacco Use Types Packs/Day Years Used Date Smoking Tobacco: Never Assessed Comments Unknown Sex and Gender Information Value Date Recorded Sex Assigned at Not on file Legal Sex Female 4:21 AM DIE HARDENER Gender Identity Not on file Sexual Orientation Not on file Plan of Treatment Health Maintenance Due Date Last Done Comments DTAP/TDAP/TD VACCINES (1 - Tdap) 1989 HEPATITIS B VACCINES (1 of 3 - 19+ 3-dose series) 11/16 HPV/Cotest (21-29) 12/14/1991 CERVICAL CANCER SCREENING 2000 HPV/Cotest (30-65) 2000 PAP SMEAR 2000 BREAST CANCER SCREENING 2010 COLORECTAL SCREENING 12/14/2015 Colorectal Cancer Screening 12/14/2015 FIT-DNA Q 3 years 12/14/2015 FIT/FOBT Q 1 year 12/14/2015 Flex Sig/CT Colonography Q 5 years 12/14/2015 ZOSTER VACCINE (1 of 2) 2020 INFLUENZA VACCINE (#1) 2024 Care Teams Gunsmith Apprentice Relationship Specialty Start Date End Date Charlie Mera MD NO ADDRESS ON FILE PCP - General 09/19/05
--- OUTSIDE RECORDS SUMMARY | 2024-12-29 01:03 | XMS_ITS | Encounter Summary ---
Author Organization [employer] Address [address] [place] [address] Care Team Providers Care Survey Technician Name Role Phone Charlie Mera MD Primary Care Provider Mary tapia Encounter Details Date Type Department Care Team (Latest Contact Info) Description 04/28/2004 Outpatient Historical HIS PATIENT IN A BED Jackson Theodore MD [address] [facility] [address] [place] [address] OTHER CURR COND-ANTEPARTUM (Primary Dx) Social History Tobacco Use Types Packs/Day Years Used Date Smoking Tobacco: Never Assessed Comments Unknown Sex and Gender Information Value Date Recorded Sex Assigned at Not on file Legal Sex Female 4:21 AM TEA BLENDER Gender Identity Not on file Sexual Orientation Not on file documented as of this encounter Plan of Treatment Not on file documented as of this encounter Visit Diagnoses Diagnosis Other current maternal conditions classifiable elsewhere, antepartum- Primary documented in this encounter Care Teams Survey Technician Relationship Specialty Start Date End Date Charlie Mera MD NO ADDRESS ON FILE PCP - General 09/19/05 documented as of this encounter
--- OUTSIDE RECORDS SUMMARY | 2024-12-29 01:03 | XMS_ITS | Encounter Summary ---
Author Organization [facility] Address [address] [place] [address] Phone Care Team Providers Care Feather Edger Name Role Phone Ute Betancourt MD Primary Care Provider [phone] Reason for Visit * Reason Comments Med Refill Encounter Details Date Type Department Care Team ([facility] Contact Info) Description 10/19/2024 Refill [facility] [address] [place] [address] Daniel Chun MD [address] [place] [phone] Social History Tobacco Use Types Packs/Day Years [...] Upcoming Encounters Date Type Department Care Team ([facility] Contact Info) Description 11/10/2025 4:40 PM CABLE FORMER Office Visit [facility] [address] [place] [address] Daniel Chun MD [address] [address] documented as of this encounter Visit Diagnoses Not on filedocumented in this encounter Care Teams Feather Edger Relationship Specialty Start Date End Date Ute Betancourt MD [address] [place] [phone] PCP - General 07/18/20 documented as of this encounter
--- OUTSIDE RECORDS SUMMARY | 2024-12-29 01:03 | XMS_ITS | Encounter Summary ---
Author Organization [employer] Address [address] [place] [address] Care Team Providers Care Stripper Apprentice Name Role Phone Charlie Mera MD Primary Care Provider Mary tapia Encounter Details Date Type Department Care Team (Latest Contact Info) Description 05/02/2004 Outpatient Historical HIS PATIENT IN A BED Сергей Carbajal MD [address] [place] [address] THREATEN ABORT-ANTEPART (Primary Dx) Social History Tobacco Use Types Packs/Day Years Used Date Smoking Tobacco: Never Assessed Comments Unknown Sex and Gender Information Value Date Recorded Sex Assigned at Not on file Legal Sex Female 4:21 AM RESPIRATORY CARE PROGRAM DIRECTOR Gender Identity Not on file Sexual Orientation Not on file documented as of this encounter Plan of Treatment Not on file documented as of this encounter Visit Diagnoses Diagnosis Threatened , antepartum- Primary documented in this encounter Care Teams Stripper Apprentice Relationship Specialty Start Date End Date Charlie Mera MD NO ADDRESS ON FILE PCP - General 09/19/05 documented as of this encounter
--- OUTSIDE RECORDS SUMMARY | 2024-12-29 01:03 | XMS_ITS | Encounter Summary ---
Author Organization [employer] Address [address] [place] [address] Care Team Providers Care Betting Clerk Name Role Phone Charlie Mera MD Primary Care Provider Unavailab le Encounter Details Date Type Department Care Team (Late st Contact Info) Description 09/03/2005 Outpatient Historical [facility] Pratik Asencio, [address] [facility] [address] [address] Social History Tobacco Use Types Packs/Day Years Used Date Smoking Tobacco: Never Assessed Comments Unknown Sex and Gender Information Value Date Recorded Sex Assigned at Not on file Legal Sex Female 4:21 AM ANTHROPOLOGICAL LINGUIST Gender Identity Not on file Sexual Orientation Not on file documented as of this encounter Plan of Treatment Not on file documented as of this encounter Visit Diagnoses Not on filedocumented in this encounter Care Teams Betting Clerk Relationship Specialty Start Date End Date Charlie Mera MD NO ADDRESS ON FILE PCP - General 09/19/05 documented as of this encounter
--- OUTSIDE RECORDS SUMMARY | 2024-12-29 01:03 | XMS_ITS | Encounter Summary ---
Author Organization [facility] Address [address] [place] [address] Care Team Providers Care Mediation Commissioner Name Role Phone Ute Betancourt NP Primary Care Provider [phone] Lina Arboleda MD Unavailable [phone] Orly Michaud MD Unavailable Encounter Details Date Type Department Care Team (Late st Contact Info) Description 08/25/2019 Prep for Procedure [facility] [place] [address] Chaparrita Demarco FNP [address] [place], [place] [phone] Anesthesia Record Procedure Summary Procedure Name Responsible Anesthesiologist Anesthesia Start Time Anesthesia Stop Time CYSTOSCOPY RIGHT URETEROSCOPY 100 WATT HOLMIUM LASER LITHOTRIPSY RIGHT URETERAL STENT PLACEMENT (Right: Ureter) Marlee Jones MD 09/04/19 1306 09/04/19 1357 Events Date Time Event Comment 09/04/2019 1148 AN SALOONKEEPER Prepped 1154 1154 AN Anesthesia Prepped 1306 [...] Date: 09/04/19; Removal Time: 1351; Removal Person: SALOONKEEPER; Removal Reason: End of Case 09/04/19 1317 [...] Sex Assigned at Female 11/07/2024 8:08 AM BARK PRESS OPERATOR Legal Sex Female 3:59 PM CDT Gender Identity Not on file Sexual Orientation Not on file Occupation Industry Job Start Date Job End Date Not on file Not on file Not on file Not on file documented as of this encounter Plan of Treatment Not on file documented as of this encounter Results * (ABNORMAL) DRUG SCREEN RAPID (09/04/2019 10:28 AM BARK PRESS OPERATOR) AMPHETAMINE (U) NEGATIVE NEGATIVE 9 11:[address] [facility] BARBITURATES SCREEN (U) NEGATIVE NEGATIVE 09/04/2019 11:11 AM [facility] BENZODIAZEPINES SCREEN (U) POSITIVE(A) NEGATIVE 09/04/2019 11:11 AM [facility] CANNABINOIDS SCREEN (U) POSITIVE(A) NEGATIVE 09/04/2019 11:11 AM [facility] COCAINE METABOLITES (U) NEGATIVE NEGATIVE 09/04/2019 11:11 AM [facility] METHADONE (U) NEGATIVE NEGATIVE 09/04/2019 11:11 AM [facility] OPIATE SCREEN (U) NEGATIVE NEGATIVE 019 11:11 AM [facility] PHENCYCLIDINE PCP (U) NEGATIVE NEGATIVE 09/04/2019 11:11 AM [facility] Comment: NOTE: RESULTS OF THIS DRUG SCREEN SHOULD BE USED FOR MEDICAL PURPOSES ONLY AND NOT FOR LEGAL OR EMPLOYMENT PURPOSES. POSITIVE RESULTS ARE NOT CONFIRMED. MEDICATIONS CONTAINING EPHEDRINE MAY CAUSE FALSE POSITIVE AMPHETAMINE CALL [phone], LAB, TO REQUEST CONFIRMATION TESTING. IF CREATININE IS <40 mg/dL. RECOLLECTION IS SUGGESTED. AMPHETAMINE- 500 NG/ML BARBITURATE- 200 NG/ML BENZODIAZEPINES- 200 NG/ML THC- 50 NG/ML COCAINE- 150 NG/ML METHADONE- 300 NG/ML OPIATE- 300 MG/ML PCP- 25 NG/ML CREATININE (U) 230.0(H) 28 - 217 MG/DL 09/04/2019 11:11 AM [facility] Urine specimen (specimen) URINE SPECIMEN / Unknown 09/04/2019 10:28 AM BARK PRESS OPERATOR us Chaparrita Demarco SENIOR OFFICE ASSISTANT URINE ORDERABLES Final Result [facility] [address] [place] [address], [place] [phone] documented in this encounter Visit Diagnoses Diagnosis Preop examination- Primary Preoperative examination, unspecified documented in this encounter Additional Health Concerns Infection Onset Date Last Indicated Resolved Time COVID-19 Rule Out 05/16/2020 05/16/2020 05/16/2020 8:08 AM CDT COVID-19 Rule Out 07/25/2020 07/25/2020 07/27/2020 2:31 PM BARK PRESS OPERATOR COVID-19 Rule Out 02/16/2021 02/16/2021 02/16/2021 9:46 AM CDT COVID-19 Rule Out 05/18/2021 05/18/2021 05/19/2021 4:06 PM CDT documented as of this encounter Care Teams Mediation Commissioner Relationship Specialty Start Date End Date Ute Betancourt NP [address] [facility] [address] [place] [address] PCP - General FAMILY PRACTICE 03/16/17 Lina Arboleda MD [facility]. [address] [place] [address] [employer] CARDIOVASCULAR DISEASE 03/28/17 Orly Michaud MD [address] [facility] [address] [place] [address] Referring Physician GASTROENTEROLOGY 08/24/19 documented as of this encounter
--- OUTSIDE RECORDS SUMMARY | 2024-12-29 01:03 | XMS_ITS | Encounter Summary ---
Author Organization [employer] Address [address] [place] [address] Care Team Providers Care Supervisor Grinding Name Role Phone Charlie Mera MD Primary [...] file Legal Sex Female 4:21 AM NURSE CHARGE RN Gender Identity Not on file Sexual Orientation Not on file documented as of this encounter Plan of Treatment Not on file documented as of this encounter Procedures Procedure Name Priority Date/Time Associated Diagnosis Comments CBC WITH DIFFERENTIAL Routine 09/19/2005 5:12 PM NURSE CHARGE RN CBC WITH DIFFERENTIAL Routine 09/19/2005 5:12 PM NURSE CHARGE RN documented in this encounter Results * (ABNORMAL) CBC WITH DIFFERENTIAL (09/19/2005 5:12 PM NURSE CHARGE RN) NEUTROPHILS 72(H) 45 - 70 % INTERFAC [...] 0.20 K/uL INTERFACE SYSTEM 09/19/2005 5:12 PM NURSE CHARGE RN Magali Sanders MD HEMATOLOGY ORDERABLES Final Re sult Performing Organization Address [facility] Phone Number INTERFACE SYSTEM Refer to clinic/hospital department * CBC WITH DIFFERENTIAL (09/19/2005 5:12 PM NURSE CHARGE RN) WBC 9.0 4.0 - 9.8 K/uL INTERFACE [...] 12.4 fL INTERFACE SYSTEM 09/19/2005 5:12 PM NURSE CHARGE RN Magali Sanders MD HEMATOLOGY ORDERABLES Final Re sult Performing Organization Address [facility] Phone Number INTERFACE SYSTEM Refer to clinic/hospital department documented in this encounter Visit Diagnoses Diagnosis Hemorrhage of gastrointestinal tract, unspecified- Primary documented in this encounter Care Teams Supervisor Grinding Relationship Specialty Start Date End Date Charlie Mera MD NO ADDRESS ON FILE PCP - General 09/19/05 documented as of this encounter
--- OUTSIDE RECORDS SUMMARY | 2024-12-29 01:03 | XMS_ITS | Encounter Summary ---
Author Organization [employer] Address [address] [place] [address] Care Team Providers Care Merchandising Execution Manager Name Role Phone Charlie Mera MD Primary Care Provider Unavailab le Encounter Details Date Type Department Care Team (Late st Contact Info) Description 07/06/2005 Outpatient Historical [facility] Maternal and Ground Floor [address] [place] [address] Сергей Carbajal MD [address] [place] [address] Social History Tobacco Use Types Packs/Day Years Used Date Smoking Tobacco: Never Assessed Comments Unknown Sex and Gender Information Value Date Recorded Sex Assigned at Not on file Legal Sex Female 4:21 AM DATA LIBRARIAN Gender Identity Not on file Sexual Orientation Not on file documented as of this encounter Plan of Treatment Not on file documented as of this encounter Visit Diagnoses Not on filedocumented in this encounter Care Teams Merchandising Execution Manager Relationship Specialty Start Date End Date Charlie Mera MD NO ADDRESS ON FILE PCP - General 09/19/05 documented as of this encounter
--- OUTSIDE RECORDS SUMMARY | 2024-12-29 01:03 | XMS_ITS | Encounter Summary ---
Author Organization [employer] Address [address] [place] [address] Care Team Providers Care Manager Packaging Name Role Phone Charlie Mera MD Primary Care Provider Mary tapia Encounter Details Date Type Department Care Team (Latest Contact Info) Description 08/13/2005 Outpatient Historical [facility] Conversion, History LABORATORY EXAMINATION (Primary Dx) Social History Tobacco Use Types Packs/Day Years Used Date Smoking Tobacco: Never Assessed Comments Unknown Sex and Gender Information Value Date Recorded Sex Assigned at Not on file Legal Sex Female 4:21 AM RETAIL EQUIPMENT ASSOCIATE Gender Identity Not on file Sexual Orientation Not on file documented as of this encounter Plan of Treatment Not on file documented as of this encounter Procedures Procedure Name Priority Date/Time Associated Diagnosis Comments CREATININE CLEARANCE, SERUM Routine 08/13/2005 9:52 PM RETAIL EQUIPMENT ASSOCIATE CREATININE, 24 HR URINE Routine 08/13/2005 9:52 PM RETAIL EQUIPMENT ASSOCIATE documented in this encounter Results * CREATININE CLEARANCE, SERUM (08/13/2005 9:52 PM RETAIL EQUIPMENT ASSOCIATE) CREATININE 0.7 0.4 - 1.2 mg/dL INTERFACE SYSTEM 08/13/2005 9:52 PM RETAIL EQUIPMENT ASSOCIATE us History Conversion CHEMISTRY ORDERABLES Final Re sult INTERFACE SYSTEM Refer to clinic/hospital department * CREATININE, 24 HR URINE (08/13/2005 9:52 PM RETAIL EQUIPMENT ASSOCIATE) START DATE 24 HR UR [id number] :[id number] :0:0 INTERFACE SYSTEM START TIME 24 HR UR 2030 time INTERFACE SYSTEM LENGTH OF COLLECTION 24 23 - 25 hr INTERFACE SYSTEM VOLUME, 24 HR URINE 2100 mL INTERFACE SYSTEM CREATININE, 24 HR URINE 1.4 0.6 - 1.8 g/24 hrs INTERFACE SYSTEM 08/13/2005 9:52 PM RETAIL EQUIPMENT ASSOCIATE us History Conversion URINE ORDERABLES Final Result Performing Organization Address City/State/[facility] Co de Phone Number INTERFACE SYSTEM Refer to clinic/hospital department documented in this encounter Visit Diagnoses Diagnosis Laboratory examination- Primary documented in this encounter Care Teams Manager Packaging Relationship Specialty Start Date End Date Charlie Mera MD NO ADDRESS ON FILE PCP - General 09/19/05 documented as of this encounter
--- OUTSIDE RECORDS SUMMARY | 2024-12-29 01:03 | XMS_ITS | Referral Summary ---
Author Organization [facility] Address [address] [place] [address] Care Team Providers Care Hadoop Engineer Name Role Phone Ute Betancourt NP Primary Care Provider [phone] Elie Mojica MD Unavailable [phone] Allergies Active Allergy Reactions Criticality Noted Date [...] (10/17/2020): Added automatically from request for surgery [id number] Social History Tobacco Use Types Packs/Day Years [...] on file Legal Sex Female 6:52 AM MAMMOGRAPHY TECH Gender Identity Not on file Sexual Orientation Not on file Last Filed Vital Signs Vital Sign Reading Time Taken Comments Blood Pressure 121/77 09/10/2024 12:30 PM MAMMOGRAPHY TECH Pulse 73 09/10/2024 12:30 PM MAMMOGRAPHY TECH Temperature 36.8 C (98.2 F) 09/28/2021 4:08 PM MAMMOGRAPHY TECH Respiratory Rate 13 09/10/2024 12:3 0 PM MAMMOGRAPHY TECH Oxygen Saturation 98% 09/10/2024 12: 30 PM MAMMOGRAPHY TECH Inhaled Oxygen Concentration - - Weight 84.3 kg (185 lb 12.8 oz) 022 10:07 AM CDT Height 167.6 cm (5' 6 ) 11/30/2021 10:0 7 AM CDT Body Mass Index 29.99 11/30/2021 10:07 AM CDT Plan of Treatment Not on file Medical Devices Implanted Type Area Fire Engineer Device Identifier Shelf Expiration Date Model / Serial / Lot Spinal Cord Stimulator-204/2020 Implanted:Qty: 1 on 11/13/2019 by Dileep Colorado MD Spinal Cord Stimulator Left: Back Medtronic [id number] / [id number] / [employer] Alvaro 400-171 C-Flex 6fr 70cm Taper Tip 1 Lumen Injection Hub Radiopaque Latex Free - Sn/A - [id number] Implanted:Qty: 1 on 11/02/2020 by Elie Mojica MD at [facility] [employer]ent [employer] Alvaro 05/10/2024 400-171 / N/A / [id number] [employer] [id number] Amplatz 8.5fr 26cm 6 Sideport Introducer Catheter String - [id number] Implanted:Qty: 1 on 11/03/2020 at [facility] [employer] 09/29/2023 [id number] / / [id number] Insurance HUMANA CHOICE MEDICARE PPO IDPA [facility] MEDICARE ADVANTAGE Advance Directives For more information, please contact: [phone] Documents on File Type Date Recorded Patient Tobacco Sweeper Expl anation ADVANCE DIRECTIVE 01/01/2013 12:00 AM MERARI R OF [employer]CTIONS REP FINANCIAL/MEDICAL * Full Code (Latest Code Status on File) Date Activated Date Inactivated Comments 11/02/2020 5:55 PM 11/03/2020 9:22 PM Care Teams Hadoop Engineer Relationship Specialty Start Date End Date Ute Betancourt NP PCP - General 11/13/19 [place] [address] [place] [address] Consulting Physician Urology 11/03/20
--- OUTSIDE RECORDS SUMMARY | 2024-12-29 01:03 | XMS_ITS | Clinical Summary ---
Author Organization [facility] Address [address] [place] [address] Care Team Providers Care Atmospheric Sciences Professor Name Role Phone Ute Betancourt NP Primary Care Provider Elie Mojica MD Unavailable [phone] Allergies Active Allergy Reactions Criticality Noted Date [...] (10/17/2020): Added automatically from request for surgery [id number] Surgical History Surgery Date Site/Laterality Comments APPENDECTOMY HYSTERECTOMY GALLBLADDER SURGERY BACK SURGERY TONSILLECTOMY AND ADENOIDECTOMY LAPAROTOMY LITHOTRIPSY NEPHROURETERAL STENT PLACEMENT NEW ACCESS LEFT 11/02/19 Left URETERAL STENT PLACEMENT VIA EXISTING TRACT [...] on file Legal Sex Female 6:52 AM CLINICAL RESEARCH COORDINATOR Gender Identity Not on file Sexual Orientation Not on file Obstetrics History Last Filed Vital Signs Vital Sign Reading Time Taken Comments Blood Pressure 121/77 09/10/2024 12:30 PM CLINICAL RESEARCH COORDINATOR Pulse 73 09/10/2024 12:30 PM CLINICAL RESEARCH COORDINATOR Temperature 36.8 C (98.2 F) 09/28/2021 4:08 PM CLINICAL RESEARCH COORDINATOR Respiratory Rate 13 09/10/2024 12:3 0 PM CLINICAL RESEARCH COORDINATOR Oxygen Saturation 98% 09/10/2024 12: 30 PM CLINICAL RESEARCH COORDINATOR Inhaled Oxygen Concentration - - Weight 84.3 [...] 1989 Zoster Vaccine (1 of 2) 2020 Breast Cancer Screening-Mammogram 09/10/2024 09/10/2023, 09/07/2023, 09/07/2023, Additional history exists Influenza Vaccine (Season Ended) 2025 DTaP/Tdap/Td Vaccine (3 - Td or Tdap) 05/23/2032 05/23/2022, 08/13/2012 Medical Devices Implanted Type Area Distribution Associate Device Identifier Shelf Expiration Date Model / Serial / Lot Spinal Cord Stimulator-2/2 04/2020 Implanted:Qty: 1 on 11/13/2019 by Dileep Colorado MD Spinal Cord Stimulator Left: Back Medtronic [id number] / [id number] / [employer] Alvaro 400-171 C-Flex 6fr 70cm Taper Tip 1 Lumen Injection Hub Radiopaque Latex Free - Sn/A - [id number] Implanted:Qty: 1 on 11/02/2020 by Elie Mojica MD at [facility] [employer]ent [employer] Alvaro 05/10/2024 400-171 / N/A / [id number] [employer] [id number] Amplatz 8.5fr 26cm 6 Sideport Introducer Catheter String - [id number] Implanted:Qty: 1 on 11/03/2020 at [facility] [employer] 09/29/2023 [id number] / / [id number] Insurance HUMANA CHOICE MEDICARE PPO IDPA [facility] MEDICARE ADVANTAGE Advance Directives For more information, please contact: [phone] Documents on File Type Date Recorded Patient Party Plan Sales Unit Advisor Expl anation ADVANCE DIRECTIVE 01/01/2013 12:00 AM MERARI R OF [employer] FINANCIAL/MEDICAL * Full Code (Latest Code Status on File) Date Activated Date Inactivated Comments 11/02/2020 5:55 PM 11/03/2020 9:22 PM Care Teams Atmospheric Sciences Professor Relationship Specialty Start Date End Date Ute Betancourt NP PCP - General 11/13/19 [place] [address] [place] [address] Consulting Physician Urology 11/03/20
--- OUTSIDE RECORDS SUMMARY | 2024-12-29 01:03 | XMS_ITS | Encounter Summary ---
Author Organization [employer] Address [address] [place] [address] Care Team Providers Care Snow Removing Supervisor Name Role Phone Charlie Mera MD Primary Care Provider Mary tapia Encounter Details Date Type Department Care Team (Late st Contact Info) Description 12/14/2005 [facility] NO ADDRESS ON FILE Follow-Up Examination, Following Other Surgery (Primary Dx) Social History Tobacco Use Types Packs/Day Years Used Date Smoking Tobacco: Never Assessed Comments Unknown Sex and Gender Information Value Date Recorded Sex Assigned at Not on file Legal Sex Female 4:21 AM BITUMINOUS DISTRIBUTOR OPERATOR Gender Identity Not on file Sexual Orientation Not on file documented as of this encounter Plan of Treatment Not on file documented as of this encounter Visit Diagnoses Diagnosis Follow-up examination, following other surgery- Primary documented in this encounter Care Teams Snow Removing Supervisor Relationship Specialty Start Date End Date Charlie Mera MD NO ADDRESS ON FILE PCP - General 09/19/05 documented as of this encounter
--- OUTSIDE RECORDS SUMMARY | 2024-12-29 01:03 | XMS_ITS | Encounter Summary ---
Author Organization [facility] Address [address] [place] [address] Care Team Providers Care Vinyl Top Installer Name Role Phone Charlie Mera MD Primary Care Provider Mary le Encounter Details Date Type Department Care Team (Late st Contact Info) Description 04/25/2004 Outpatient Historical HIS [facility] Blanco, Jb Garcia MD [address] [facility] [address] [address] [place] [address] PREG STATE, INCIDENTAL (Primary Dx) Social History Tobacco Use Types Packs/Day Years Used Date Smoking Tobacco: Never Assessed Comments Unknown Sex and Gender Information Value Date Recorded Sex Assigned at Not on file Legal Sex Female 4:21 AM QUALITY CONTROL OPERATOR Gender Identity Not on file Sexual Orientation Not on file documented as of this encounter Plan of Treatment Not on file documented as of this encounter Visit Diagnoses Diagnosis state, incidental- Primary documented in this encounter Care Teams Vinyl Top Installer Relationship Specialty Start Date End Date Charlie Mera MD NO ADDRESS ON FILE PCP - General 09/19/05 documented as of this encounter
--- OUTSIDE RECORDS SUMMARY | 2024-12-29 01:04 | XMS_ITS | Encounter Summary ---
Author Organization [facility] Address [address] [place] [address] Care Team Providers Care Windscreen Fitter Name Role Phone Charlie Mera MD Primary Care Provider Unavailab le Encounter Details Date Type Department Care Team (Late st Contact Info) Description 07/17/2005 Outpatient Historical [facility] Maternal and Ground Floor [address] [place] [address] Pratik Asencio DO [address] [facility] [address] [place], [place] [id number] Social History Tobacco Use Types Packs/Day Years Used Date Smoking Tobacco: Never Assessed Comments Unknown Sex and Gender Information Value Date Recorded Sex Assigned at Not on file Legal Sex Female 4:21 AM PRIMARY SCHOOL TEACHER LIBRARIAN Gender Identity Not on file Sexual Orientation Not on file documented as of this encounter Plan of Treatment Not on file documented as of this encounter Visit Diagnoses Not on filedocumented in this encounter Care Teams Windscreen Fitter Relationship Specialty Start Date End Date Charlie Mera MD NO ADDRESS ON FILE PCP - General 09/19/05 documented as of this encounter
--- OUTSIDE RECORDS SUMMARY | 2024-12-29 01:04 | XMS_ITS | Encounter Summary ---
Author Organization [employer] Address [address] [place] [address] Care Team Providers Care Aeronautical Products Sales Engineer Name Role Phone Charlie Mera MD Primary Care Provider Mary tapia Encounter Details Date Type Department Care Team (Latest Contact Info) Description 08/06/2005 Outpatient Historical HIS PATIENT IN A BED Jackson Theodore MD [address] [place] [address] Pratik Asencio DO [address] [place], [place] [id number] OTHER CURR COND-ANTEPARTUM (Primary Dx) Social History Tobacco Use Types Packs/Day Years Used Date Smoking Tobacco: Never Assessed Comments Unknown Sex and Gender Information Value Date Recorded Sex Assigned at Not on file Legal Sex Female 4:21 AM HUMAN RESOURCES CONSULTANT Gender Identity Not on file Sexual Orientation Not on file documented as of this encounter Plan of Treatment Not on file documented as of this encounter Procedures Procedure Name Priority Date/Time Associated Diagnosis Comments DIC PROFILE Routine 08/07/2005 2:54 AM HUMAN RESOURCES CONSULTANT CBC WITH DIFFERENTIAL Routine 08/07/2005 2:54 AM HUMAN RESOURCES CONSULTANT CBC WITH DIFFERENTIAL Routine 08/07/2005 2:54 AM HUMAN RESOURCES CONSULTANT URIC ACID Routine 08/07/2005 2:54 AM HUMAN RESOURCES CONSULTANT AST Routine 08/07/2005 2:54 AM HUMAN RESOURCES CONSULTANT LACTATE DEHYDROGENASE Routine 08/07/2005 2:54 AM HUMAN RESOURCES CONSULTANT documented in this encounter Results * (ABNORMAL) CBC WITH DIFFERENTIAL (08/07/2005 2:54 AM HUMAN RESOURCES CONSULTANT) NEUTROPHILS 76(H) 45 - 70 % INTERFAC [...] 0.20 K/uL INTERFACE SYSTEM 08/07/2005 2:54 AM HUMAN RESOURCES CONSULTANT Pratik Asencio DO HEMATOLOGY ORDERABLES Final Re sult Performing Organization Address [facility] Co de Phone Number INTERFACE SYSTEM Refer to clinic/hospital department * (ABNORMAL) CBC WITH DIFFERENTIAL (08/07/2005 2:54 AM HUMAN RESOURCES CONSULTANT) WBC 11.1(H) 4.0 - 9.8 K/uL INTERFACE [...] 12.4 fL INTERFACE SYSTEM 08/07/2005 2:54 AM HUMAN RESOURCES CONSULTANT Pratik Asencio DO HEMATOLOGY ORDERABLES Final Re sult INTERFACE SYSTEM Refer to clinic/hospital department * AST (08/07/2005 2:54 AM HUMAN RESOURCES CONSULTANT) AST 19 12 - 32 U/L INTERFAC E SYSTEM 08/07/2005 2:54 AM HUMAN RESOURCES CONSULTANT us Pratik Asencio DO CHEMISTRY ORDERABLES Final Res ult Performing Organization Address [facility] Co de Phone Number INTERFACE SYSTEM Refer to clinic/hospital department * (ABNORMAL) DIC PROFILE (08/07/2005 2:54 AM HUMAN RESOURCES CONSULTANT) PROTIME 14.1 12.7 - 15.1 Seconds INTERFACE [...] patients with mechanical heart valves or post VA. Pediatric (12 years and under): 1.5 - [...] examination, including risk stratification. 08/07/2005 2:54 AM HUMAN RESOURCES CONSULTANT Pratik Asencio DO HEMATOLOGY ORDERABLES Final Re sult Performing Organization Address [facility] Phone Number INTERFACE SYSTEM Refer to clinic/hospital department * LACTATE DEHYDROGENASE (08/07/2005 2:54 AM HUMAN RESOURCES CONSULTANT) LD (LACTATE DEHYDROGENASE) 191 135 - 214 U/L INTERFACE SYSTEM 08/07/2005 2:54 AM HUMAN RESOURCES CONSULTANT Pratik Asencio DO CHEMISTRY ORDERABLES Final Res ult Performing Organization Address [facility] Phone Number INTERFACE SYSTEM Refer to clinic/hospital department * URIC ACID (08/07/2005 2:54 AM HUMAN RESOURCES CONSULTANT) URIC ACID 4.0 2.3 - 6.6 mg/dL INTERFACE SYSTEM 08/07/2005 2:54 AM HUMAN RESOURCES CONSULTANT Pratik Asencio DO CHEMISTRY ORDERABLES Final Res ult Performing Organization Address [facility] INTERFACE SYSTEM Refer to clinic/hospital department documented in this encounter Visit Diagnoses Diagnosis Other current maternal conditions classifiable elsewhere, antepartum- Primary documented in this encounter Care Teams Aeronautical Products Sales Engineer Relationship Specialty Start Date End Date Charlie Mera MD NO ADDRESS ON FILE PCP - General 09/19/05 documented as of this encounter
--- OUTSIDE RECORDS SUMMARY | 2024-12-29 01:04 | XMS_ITS | Encounter Summary ---
Author Organization [employer] Address [address] [place] [address] Care Team Providers Care Contractor Buyer Name Role Phone Charlie Mera MD Primary Care Provider Mary tapia Encounter Details Date Type Department Care Team (Latest Contact Info) Description 07/24/2005 Outpatient Historical HIS PATIENT IN A BED AsencioPratik, DO [address] [facility] [address] [address] PREG COMPL NEC-ANTEPART (Primary Dx) Social History Tobacco Use Types Packs/Day Years Used Date Smoking Tobacco: Never Assessed Comments Unknown Sex and Gender Information Value Date Recorded Sex Assigned at Not on file Legal Sex Female 4:21 AM MEASUREMENT TECHNICIAN Gender Identity Not on file Sexual Orientation Not on file documented as of this encounter Plan of Treatment Not on file documented as of this encounter Procedures Procedure Name Priority Date/Time Associated Diagnosis Comments URINALYSIS WITH REFLEX CULTURE Routine 07/25/2005 4:13 AM MEASUREMENT TECHNICIAN URINALYSIS W/REFLEX MICROSCOPIC Routine 07/25/2005 4:13 AM MEASUREMENT TECHNICIAN CBC WITH DIFFERENTIAL Routine 07/24/2005 11:57 PM MEASUREMENT TECHNICIAN CBC WITH DIFFERENTIAL Routine 07/24/2005 11:57 PM MEASUREMENT TECHNICIAN URIC ACID Routine 07/24/2005 11:57 PM MEASUREMENT TECHNICIAN AST Routine 07/24/2005 11:57 PM MEASUREMENT TECHNICIAN LACTATE DEHYDROGENASE Routine 07/24/2005 11:57 PM MEASUREMENT TECHNICIAN documented in this encounter Results * (ABNORMAL) URINALYSIS (07/25/2005 4:13 AM MEASUREMENT TECHNICIAN) COLOR UA Colorless INTERFACE SYSTEM CLARITY UA [...] 2-5 /HPF INTERFACE SYSTEM 07/25/2005 4:13 AM MEASUREMENT TECHNICIAN Pratik Asencio DO URINE ORDERABLES Final Result Performing Organization Address [facility] de Phone Number INTERFACE SYSTEM Refer to clinic/hospital department * URINALYSIS WITH REFLEX CULTURE (07/25/2005 4:13 AM MEASUREMENT TECHNICIAN) Pathologist [facility] URINE CULTURE ORDER Culture ordered INTERFACE SYSTEM Comment: Criteria for a reflex culture include one or more of the following: Abn ormal nitrite, leukocyte esterase, WBCs or RBCs. Lack of qualifying criteria does not exclude the possiblity of a urinary tract infection. Dilute urine, drug interference, etc. may decrease the sensitivity of the criteria analytes. 07/25/2005 4:13 AM MEASUREMENT TECHNICIAN Pratik Asencio DO URINE ORDERABLES Final Result Performing Organization Address [facility] Co de Phone Number INTERFACE SYSTEM Refer to clinic/hospital department * (ABNORMAL) CBC WITH DIFFERENTIAL (07/24/2005 11:57 PM MEASUREMENT TECHNICIAN) NEUTROPHILS 74(H) 45 - 70 % INTERFAC [...] K/uL INTERFACE SYSTEM 07/24/2005 11:5 7 PM MEASUREMENT TECHNICIAN Pratik Asencio DO HEMATOLOGY ORDERABLES Final Re sult Performing Organization Address [facility] de Phone Number INTERFACE SYSTEM Refer to clinic/hospital department * (ABNORMAL) CBC WITH DIFFERENTIAL (07/24/2005 11:57 PM MEASUREMENT TECHNICIAN) WBC 10.1(H) 4.0 - 9.8 K/uL INTERFACE [...] fL INTERFACE SYSTEM 07/24/2005 11:5 7 PM MEASUREMENT TECHNICIAN Pratik Asencio DO HEMATOLOGY ORDERABLES Final Re sult Performing Organization Address City/[facility]/ZIP Co de Phone Number INTERFACE SYSTEM Refer to clinic/hospital department * AST (07/24/2005 11:57 PM MEASUREMENT TECHNICIAN) AST 24 12 - 32 U/L INTERFAC E SYSTEM 07/24/2005 11:5 7 PM MEASUREMENT TECHNICIAN Pratik Asencio DO CHEMISTRY ORDERABLES Final Res ult Performing Organization Address [facility] Phone Number INTERFACE SYSTEM Refer to clinic/hospital department * LACTATE DEHYDROGENASE (07/24/2005 11:57 PM MEASUREMENT TECHNICIAN) LD (LACTATE DEHYDROGENASE) 179 135 - 214 U/L INTERFACE SYSTEM 07/24/2005 11:5 7 PM MEASUREMENT TECHNICIAN us Pratik Asencio DO CHEMISTRY ORDERABLES Final Res ult Performing Organization Address [facility] Phone Number INTERFACE SYSTEM Refer to clinic/hospital department * URIC ACID (07/24/2005 11:57 PM MEASUREMENT TECHNICIAN) URIC ACID 3.4 2.3 - 6.6 mg/dL INTERFACE SYSTEM 07/24/2005 11:5 7 PM MEASUREMENT TECHNICIAN us Pratki Asencio DO CHEMISTRY ORDERABLES Final Res ult Performing Organization Address [facility] Phone Number INTERFACE SYSTEM Refer to clinic/hospital department documented in this encounter Visit Diagnoses Diagnosis Other specified complication, antepartum(646.83)- Primary Other specified complication, antepartum documented in this encounter Care Teams Contractor Buyer Relationship Specialty Start Date End Date Charlie Mera MD NO ADDRESS ON FILE PCP - General 09/19/05 documented as of this encounter
--- OUTSIDE RECORDS SUMMARY | 2024-12-29 01:04 | XMS_ITS | Encounter Summary ---
Author Organization [employer] Address [address] [place] [address] Care Team Providers Care Stationary Engineer Refrigeration Name Role Phone Charlie Mera MD Primary Care Provider Unavailab le Encounter Details Date Type Department Care Team (Late st Contact Info) Description 07/24/2005 Outpatient Historical [facility] Maternal and Ground Floor [address] [place] [address] Pratik Asencio DO [address] [facility] [address] [place], [place] [id number] Social History Tobacco Use Types Packs/Day Years Used Date Smoking Tobacco: Never Assessed Comments Unknown Sex and Gender Information Value Date Recorded Sex Assigned at Not on file Legal Sex Female 4:21 AM PRODUCTION CONTROL EXPERT Gender Identity Not on file Sexual Orientation Not on file documented as of this encounter Plan of Treatment Not on file documented as of this encounter Visit Diagnoses Not on filedocumented in this encounter Care Teams Stationary Engineer Refrigeration Relationship Specialty Start Date End Date Charlie Mera MD NO ADDRESS ON FILE PCP - General 09/19/05 documented as of this encounter
--- OUTSIDE RECORDS SUMMARY | 2024-12-29 01:04 | XMS_ITS | Encounter Summary ---
Author Organization [facility] Address [address] [place] [address] Care Team Providers Care Dental Assistant Name Role Phone Charlie Mera MD Primary Care Provider Unavailab le Encounter Details Date Type Department Care Team (Late st Contact Info) Description 07/20/2005 Outpatient Historical [facility] Maternal and Ground Floor [address] [place] [address] Gwendolyn Mcdonnell MD [address] [place] [address] Social History Tobacco Use Types Packs/Day Years Used Date Smoking Tobacco: Never Assessed Comments Unknown Sex and Gender Information Value Date Recorded Sex Assigned at Not on file Legal Sex Female 4:21 AM REGULATOR MECHANIC Gender Identity Not on file Sexual Orientation Not on file documented as of this encounter Plan of Treatment Not on file documented as of this encounter Visit Diagnoses Not on filedocumented in this encounter Care Teams Dental Assistant Relationship Specialty Start Date End Date Charlie Mera MD NO ADDRESS ON FILE PCP - General 09/19/05 documented as of this encounter
--- OUTSIDE RECORDS SUMMARY | 2024-12-29 01:04 | XMS_ITS | Encounter Summary ---
Author Organization [employer] Address [address] [place] [address] Care Team Providers Care Photoengraving Helper Name Role Phone Charlie Mera MD Primary Care Provider Unavailab le Encounter Details Date Type Department Care Team (Late st Contact Info) Description 08/16/2005 Outpatient Historical [facility] (Adt Cardiology[facility]) [address] [place] [address] Rambo Garza MD NO ADDRESS ON FILE Social History Tobacco Use Types Packs/Day Years Used Date Smoking Tobacco: Never Assessed Comments Unknown Sex and Gender Information Value Date Recorded Sex Assigned at Not on file Legal Sex Female 4:21 AM WATER RESOURCE ENGINEER Gender Identity Not on file Sexual Orientation Not on file documented as of this encounter Plan of Treatment Not on file documented as of this encounter Visit Diagnoses Not on filedocumented in this encounter Care Teams Photoengraving Helper Relationship Specialty Start Date End Date Charlie Mera MD NO ADDRESS ON FILE PCP - General 09/19/05 documented as of this encounter
--- OUTSIDE RECORDS SUMMARY | 2024-12-29 01:04 | XMS_ITS | Encounter Summary ---
Author Organization [employer] Address [address] [place] [address] Care Team Providers Care Automotive Painter Name Role Phone Charlie Mera MD Primary Care Provider Unavailab le Encounter Details Date Type Department Care Team (Late st Contact Info) Description 07/27/2005 Outpatient Historical [facility] Maternal and Ground Floor [address] [facility] [address] [place] [address] Сергей Carbajal MD [address] [place] [address] Social History Tobacco Use Types Packs/Day Years Used Date Smoking Tobacco: Never Assessed Comments Unknown Sex and Gender Information Value Date Recorded Sex Assigned at Not on file Legal Sex Female 4:21 AM POTATO CHIP COOKER MACHINE Gender Identity Not on file Sexual Orientation Not on file documented as of this encounter Plan of Treatment Not on file documented as of this encounter Visit Diagnoses Not on filedocumented in this encounter Care Teams Automotive Painter Relationship Specialty Start Date End Date Charlie Mera MD NO ADDRESS ON FILE PCP - General 09/19/05 documented as of this encounter
--- OUTSIDE RECORDS SUMMARY | 2024-12-29 01:04 | XMS_ITS | Encounter Summary ---
Author Organization [facility] Address [address] [place] [address] Care Team Providers Care Patient Educator Name Role Phone Charlie Mera MD Primary Care Provider Unavailab le Encounter Details Date Type Department Care Team (Late st Contact Info) Description 07/31/2005 Outpatient Historical [facility] Maternal and Ground Floor [address] [place] [address] Pratik Asencio DO [address] [facility] [address] [place], [place] [id number] Social History Tobacco Use Types Packs/Day Years Used Date Smoking Tobacco: Never Assessed Comments Unknown Sex and Gender Information Value Date Recorded Sex Assigned at Not on file 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
--- OUTSIDE RECORDS SUMMARY | 2024-12-29 01:04 | XMS_ITS | Encounter Summary ---
Author Organization [employer] Address 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
--- OUTSIDE RECORDS SUMMARY | 2024-12-29 01:04 | XMS_ITS | Encounter Summary ---
Author Organization [employer] Address [address] [place] [address] Care Team Providers Care Air Compressor Engineer Name Role Phone Charlie Mera MD Primary Care Provider Mary tapia Encounter Details Date Type Department Care Team (Latest Contact Info) Description 08/14/2005 Inpatient Historical HIS PATIENT IN A BED Jackson Theodore MD [address] [place] [address] Pratik Asencio DO [address] [place], [place] [id number] EARLY ONSET DELIVERY-DEL (Primary Dx) Social History Tobacco Use Types Packs/Day Years Used Date Smoking Tobacco: Never Assessed Comments Unknown Sex and Gender Information Value Date Recorded Sex Assigned at Not on file Legal Sex Female 4:21 AM NUTRITION REPRESENTATIVE Gender Identity Not on file Sexual Orientation Not on file documented as of this encounter Plan of Treatment Not on file documented as of this encounter Procedures Procedure Name Priority Date/Time Associated Diagnosis Comments HEMOGLOBIN AND HEMATOCRIT Routine 08/16/2005 5:30 AM NUTRITION REPRESENTATIVE CBC WITH DIFFERENTIAL Routine 08/15/2005 5:10 PM NUTRITION REPRESENTATIVE CBC WITH DIFFERENTIAL Routine 08/15/2005 5:10 PM NUTRITION REPRESENTATIVE URIC ACID Routine 08/15/2005 5:10 PM NUTRITION REPRESENTATIVE AST Routine 08/15/2005 5:10 PM NUTRITION REPRESENTATIVE LACTATE DEHYDROGENASE Routine 08/15/2005 5:10 PM NUTRITION REPRESENTATIVE documented in this encounter Results * (ABNORMAL) HEMOGLOBIN AND HEMATOCRIT (08/16/2005 5:30 AM NUTRITION REPRESENTATIVE) HEMOGLOBIN 10.8(L) 11.8 - 14.8 g/dL INTERFACE SYSTEM HEMATOCRIT 32.3(L) 35.5 - 44.0 % INTERFACE SYSTEM 08/16/2005 5:30 AM NUTRITION REPRESENTATIVE Pratik Asencio DO HEMATOLOGY ORDERABLES Final Re sult Performing Organization Address [facility] de Phone Number INTERFACE SYSTEM Refer to clinic/hospital department * (ABNORMAL) CBC WITH DIFFERENTIAL (08/15/2005 5:10 PM NUTRITION REPRESENTATIVE) NEUTROPHILS 79(H) 45 - 70 % INTERFAC [...] 0.20 K/uL INTERFACE SYSTEM 08/15/2005 5:10 PM NUTRITION REPRESENTATIVE Pratik Asencio DO HEMATOLOGY ORDERABLES Final Re sult Performing Organization Address [facility] de Phone Number INTERFACE SYSTEM Refer to clinic/hospital department * (ABNORMAL) CBC WITH DIFFERENTIAL (08/15/2005 5:10 PM NUTRITION REPRESENTATIVE) WBC 10.9(H) 4.0 - 9.8 K/uL INTERFACE [...] 12.4 fL INTERFACE SYSTEM 08/15/2005 5:10 PM NUTRITION REPRESENTATIVE Pratik Asencio DO HEMATOLOGY ORDERABLES Final Re sult Performing Organization Address [facility] Phone Number INTERFACE SYSTEM Refer to clinic/hospital department * URIC ACID (08/15/2005 5:10 PM NUTRITION REPRESENTATIVE) URIC ACID 3.7 2.3 - 6.6 mg/dL INTERFACE SYSTEM 08/15/2005 5:10 PM NUTRITION REPRESENTATIVE Pratik Asencio DO CHEMISTRY ORDERABLES Final Res ult Performing Organization Address [facility] Phone Number INTERFACE SYSTEM Refer to clinic/hospital department * LACTATE DEHYDROGENASE (08/15/2005 5:10 PM NUTRITION REPRESENTATIVE) LD (LACTATE DEHYDROGENASE) 175 135 - 214 U/L INTERFACE SYSTEM 08/15/2005 5:10 PM NUTRITION REPRESENTATIVE Pratik Asencio DO CHEMISTRY ORDERABLES Final Res ult Performing Organization Address [facility] Phone Number INTERFACE SYSTEM Refer to clinic/hospital department * AST (08/15/2005 5:10 PM NUTRITION REPRESENTATIVE) AST 19 12 - 32 U/L INTERFAC E SYSTEM 08/15/2005 5:10 PM NUTRITION REPRESENTATIVE us Pratik Asencio DO CHEMISTRY ORDERABLES Final Res ult Performing Organization Address [facility] Phone Number INTERFACE SYSTEM Refer to clinic/hospital department documented in this encounter Visit Diagnoses Diagnosis Early onset of delivery, delivered, with or without mention of antepartum condition- Primary documented in this encounter Care Teams Air Compressor Engineer Relationship Specialty Start Date End Date Charlie Mera MD NO ADDRESS ON FILE PCP - General 09/19/05 documented as of this encounter
--- OUTSIDE RECORDS SUMMARY | 2024-12-29 01:04 | XMS_ITS | Encounter Summary ---
Author Organization [employer] Address [address] [place] [address] Care Team Providers Care Operations Clerk Name Role Phone Charlie Mera MD Primary Care Provider Mary tapia Encounter Details Date Type Department Care Team (Latest Contact Info) Description 08/12/2005 Outpatient Historical HIS PATIENT IN A BED Сергей Carbajal MD [address] [place] [address] Pratik Asencio DO [address] [facility] [address] [place] [address] DECREASED MOVMT-ANTEPARTUM (Primary Dx) Social History Tobacco Use Types Packs/Day Years Used Date Smoking Tobacco: Never Assessed Comments Unknown Sex and Gender Information Value Date Recorded Sex Assigned at Not on file 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
--- OUTSIDE RECORDS SUMMARY | 2024-12-29 01:04 | XMS_ITS | Encounter Summary ---
Author Organization [employer] Address 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
--- OUTSIDE RECORDS SUMMARY | 2024-12-29 01:04 | XMS_ITS | Encounter Summary ---
Author Organization [facility] Address [address] [place] [address] Care Team Providers Care Mentally Retarded Teacher Name Role Phone Charlie Mera MD Primary Care Provider Mary tapia Encounter Details Date Type Department Care Team (Latest Contact Info) Description 07/30/2005 Outpatient Historical HIS PATIENT IN A BED Jackson Theodore MD [address] [place] [address] Pratik Asencio DO [address] [place], [place] [id number] PREG COMPL NEC-ANTEPART (Primary Dx) Social History Tobacco Use Types Packs/Day Years Used Date Smoking Tobacco: Never Assessed Comments Unknown Sex and Gender Information Value Date Recorded Sex Assigned at Not on file Legal Sex Female 4:21 AM BAKERY MANAGER Gender Identity Not on file Sexual Orientation Not on file documented as of this encounter Plan of Treatment Not on file documented as of this encounter Procedures Procedure Name Priority Date/Time Associated Diagnosis Comments CBC WITH DIFFERENTIAL Routine 07/30/2005 1:50 PM BAKERY MANAGER CBC WITH DIFFERENTIAL Routine 07/30/2005 1:50 PM BAKERY MANAGER URIC ACID Routine 07/30/2005 1:50 PM BAKERY MANAGER AST Routine 07/30/2005 1:50 PM BAKERY MANAGER LACTATE DEHYDROGENASE Routine 07/30/2005 1:50 PM BAKERY MANAGER URINALYSIS WITH REFLEX CULTURE Routine 07/30/2005 1:45 PM BAKERY MANAGER URINALYSIS W/REFLEX MICROSCOPIC Routine 07/30/2005 1:45 PM BAKERY MANAGER documented in this encounter Results * (ABNORMAL) CBC WITH DIFFERENTIAL (07/30/2005 1:50 PM BAKERY MANAGER) NEUTROPHILS 81(H) 45 - 70 % INTERFAC [...] 0.20 K/uL INTERFACE SYSTEM 07/30/2005 1:50 PM BAKERY MANAGER us Pratik Asencio DO HEMATOLOGY ORDERABLES Final Re sult INTERFACE SYSTEM Refer to clinic/hospital department * (ABNORMAL) CBC WITH DIFFERENTIAL (07/30/2005 1:50 PM BAKERY MANAGER) Pathologist [facility] WBC 11.8(H) 4.0 - 9.8 K/uL INTERFACE [...] 12.4 fL INTERFACE SYSTEM 07/30/2005 1:50 PM BAKERY MANAGER Pratik Asencio DO HEMATOLOGY ORDERABLES Final Re sult Performing Organization Address [facility] Phone Number INTERFACE SYSTEM Refer to clinic/hospital department * URIC ACID (07/30/2005 1:50 PM BAKERY MANAGER) URIC ACID 3.9 2.3 - 6.6 mg/dL INTERFACE SYSTEM 07/30/2005 1:50 PM BAKERY MANAGER Pratik Asencio DO CHEMISTRY ORDERABLES Final Res ult Performing Organization Address [facility] Phone Number INTERFACE SYSTEM Refer to clinic/hospital department * LACTATE DEHYDROGENASE (07/30/2005 1:50 PM BAKERY MANAGER) LD (LACTATE DEHYDROGENASE) 162 135 - 214 U/L INTERFACE SYSTEM 07/30/2005 1:50 PM BAKERY MANAGER Pratik Asencio DO CHEMISTRY ORDERABLES Final Res ult Performing Organization Address [facility] Phone Number INTERFACE SYSTEM Refer to clinic/hospital department * AST (07/30/2005 1:50 PM BAKERY MANAGER) AST 20 12 - 32 U/L INTERFAC E SYSTEM 07/30/2005 1:50 PM BAKERY MANAGER Pratik Asencio DO CHEMISTRY ORDERABLES Final Res ult Performing Organization Address [facility] Phone Number INTERFACE SYSTEM Refer to clinic/hospital department * (ABNORMAL) URINALYSIS (07/30/2005 1:45 PM BAKERY MANAGER) COLOR UA Yellow INTERFACE SYSTEM CLARITY [...] 2-5 /HPF INTERFACE SYSTEM 07/30/2005 1:45 PM BAKERY MANAGER Pratik Asencio DO URINE ORDERABLES Final Result Performing Organization Address [facility] Phone Number INTERFACE SYSTEM Refer to clinic/hospital department * URINALYSIS WITH REFLEX CULTURE (07/30/2005 1:45 PM BAKERY MANAGER) URINE CULTURE ORDER Culture ordered INTERFACE SYSTEM Comment: Criteria for a reflex culture include one or more of the following: Abn ormal nitrite, leukocyte esterase, WBCs or RBCs. Lack of qualifying criteria does not exclude the possiblity of a urinary tract infection. Dilute urine, drug interference, etc. may decrease the sensitivity of the criteria analytes. 07/30/2005 1:45 PM BAKERY MANAGER Pratik Asencio DO URINE ORDERABLES Final Result Performing Organization Address [facility] Phone Number INTERFACE SYSTEM Refer to clinic/hospital department documented in this encounter Visit Diagnoses Diagnosis Other specified complication, antepartum(646.83)- Primary Other specified complication, antepartum documented in this encounter Care Teams Mentally Retarded Teacher Relationship Specialty Start Date End Date Charlie Mera MD NO ADDRESS ON FILE PCP - General 09/19/05 documented as of this encounter
--- NOTE | 2024-12-29 07:54 | P.HP_ITS ---
H&P: HPI History of Present Illness Date/Time: 12/29/24 07:54 Chief Complaint: Back and leg pain Narrative: Anh is a 53-year-old female with past medical history significant for an L4-5 and L5-S1 anterior and posterior surgery. 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 She benefited modestly from that surgery. Was done years ago. She Presented with complaints of neck and back pain. The neck discomfort kept her from rotating or tilting her head towards the left and radiates only proximally. Sometimes there was ulnar distribution symptoms that are intermittent and likely unrelated to her neck. She does not report specific muscle group weakness of either upper extremity. She does have some generalized weakness associated with her pain. She does not have bowel or bladder difficulty. She also has pain in her low back radiating into the bilateral lower extremities proximally worse with ambulation. She notices that leaning forward or using a shopping cart does help her with the discomfort and helps her to walk further. She again does not report specific muscle group weakness or dermatomal numbness of either lower extremity. On she is participated in physi marcial therapy and pain management in both the neck and back. This has not yielded permanent positive result. She is limited by her discomfort in both locations and at times it is quite severe. She cannot walk long distances. Since we saw her last her pain has intensified and changed slightly in location. It now radiates down the right lower extremity posteriorly usually to about the knee but sometimes below. Otherwise she is unchanged. Review of Systems Review of Systems: All systems reviewed & are unremarkable except as noted in HPI and below Denies chills, Denies fever(s), Denies weakness, Denies weight gain and Denies weight loss Eyes Denies change in vision and Denies diplopia ENT Denies neck pain and Denies disequilibrium Card Denies chest pain and Denies dyspnea Resp Denies cough and Denies dyspnea GI Denies abdominal pain, Denies change in bowel habits, Denies fecal incontinence and Denies vomiting Denies hematuria, Denies oliguria, Denies difficulty urinating, Denies dysuria, Denies urinary frequency, Denies urinary hesitancy, Denies urinary incontinence and Denies urinary urgency Musc Reports as per HPI, Reports back pain, Denies muscle weakness, Denies neck pain, Reports numbness and Denies stiffness Skin/ Breast Reports system reviewed and no additional complaints, except as documented Neuro Reports as per HPI, Denies burning sensations, Denies focal weakness, Reports numbness, Denies Other visual disturbances, Reports radicular pain, Reports paresthesias, Denies disequilibrium and Denies weakness Psych Reports no additional complaints, Denies depression and Denies hopelessness Endo Reports no additional complaints and Denies polyuria Jose L/ Lymph Reports no additional complaints Aller/ Immun Reports no additional complaints PMFSH Family History Family History Father Family history of obesity Family history of cataracts Hypertension Family history of alcoholism Family history of chronic obstructive pulmonary disease Family history of pancreatic cancer Family history of heart disease in male family member before age 55 Mother Family history of obesity Family history of mental disorder Depression Hypertension Family history of malignant neoplasm of breast in first degree relative Family history of malignant neoplasm of urinary bladder Sibling Family history of mental disorder Depression Social History Social History Years smoked: 13 Smoking status: Former smoker Tobacco type: e-cigarettes/vaping Smokeless tobacco user: dissolvable tobacco Additional smoking assessment comments: Trying to quit prior to this surgery Alcohol intake: never Substance use: current Substance use type: marijuana and painkillers Other substance usage details: smokes weekly Do You Feel Safe in your Home?: Yes Lack of Transportation: No Lack of Food: Never True Current Housing: I Have Housing Concerned About Future Housing: No Difficulty Paying Gas/Electric Bills: YES Difficulty Paying for Meds: No Currently Unemployed: No Education: Associate Degree Difficulty w/ Childcare or Family Care: No Living arrangements: with family Spiritual care concerns: No Meds Home Medications and Allergies Home Medications ?Medication ?Instructions ?Recorded ?Confirmed ?Type aripiprazole 20 mg tablet 20 mg PO DAILY 01/07/24 12/18/24 History cetirizine 10 mg tablet (Zyrtec) 10 mg PO DAILY 01/07/24 11/19/24 History cholecalciferol (vitamin D3) 50 50 mcg PO DAILY 01/07/24 11/19/24 History mcg (2,000 unit) capsule citalopram 40 mg tablet 40 mg PO DAILY 01/07/24 11/19/24 History cyclobenzaprine 10 mg tablet 10 mg PO TID PRN Spasms 01/07/24 11/19/24 History dicyclomine 20 mg tablet 20 mg PO BID 01/07/24 11/19/24 History multivitamin 1 tablet PO DAILY 01/07/24 11/19/24 History topiramate 100 mg tablet 150 mg PO DAILY 01/07/24 11/19/24 History vitamin E (dl, acetate) 180 mg 180 mg PO DAILY 01/07/24 11/19/24 History (400 unit) capsule hydroxyzine pamoate 25 mg capsule 25 mg PO TID 05/25/24 11/19/24 History pantoprazole 40 mg tablet,delayed 40 mg PO BID 05/25/24 11/19/24 History release vitamin K2 40 mcg tablet 40 mcg PO DAILY 05/25/24 11/19/24 History hydrocodone 7.5 mg-acetaminophen 1 tablet PO Q6H PRN pain 11/10/24 11/19/24 History 325 mg tablet eszopiclone 2 mg tablet 2 mg PO HS PRN insomnia 11/19/24 11/19/24 History Allergies Allergy/AdvReac Type Severity Reaction Status Date / Time sulfanilamide Allergy Mild Hives Verified 12/18/24 13:21 adhesive tape AdvReac Severe Rash Verified 12/18/24 13:21 Exam Narrative: General: cooperative, no acute distress, well developed, alert and awake Orientation/Consciousness: oriented to person, oriented to place and oriented to time Constitutional Limitations: no limitations Other: The patient is a normally developed, normal appearing female sitting on the examination table in no acute distress. She is awake, alert, and oriented x3 with good fund of knowledge, recall of events, and fluent speech. [facility] Head: normocephalic and atraumatic Ears: external ears normal Face/Nose/Sinus: Normal external nose present Eyes Eyelids: eyelids normal Pupils: Yes Pupils normal by confrontation EOM: EOMs intact bilaterally Neck General: Yes no meningeal signs, Yes supple and Yes no JVD Resp Effort/Inspection: normal respiratory effort and able to speak in complete sentences Cardio Rate: Yes regular rate GI Inspection: No abdominal distension Musc Other: Examination of the back reveals no tenderness. Range of motion of the back is full without pain in forward flexion, extension, and lateral rotation to both sides. The neck is also limited in lateral rotation and extension more than flexion. Straight leg raise is negative bilaterally. Carlitos?s test is negative bilaterally. Skin General: normal color Neuro General: Yes oriented to person, Yes oriented to place, Yes oriented to time, Yes normal cognition and Yes no meningeal signs Cranial Nerves: Yes CN's II-XII intact bilaterally Other: Motor: Strength is normal, 5/5, throughout all muscle groups of the bilateral upper and lower extremities to direct confrontation. Sensory: Sensation is intact to light touch throughout the upper and lower extremities bilaterally. Reflexes: Deep tendon reflexes Are normal and symmetric in the bilateral upper and lower extremities. There is no clonus. There is no San's. Gait: Gait, station, and transfers are independent and steady for short periods of time and over short distances. Psych Appearance: grossly normal Mental status: Yes mental status grossly normal Mood: congruent mood Affect: Yes normal affect Speech/Movement: Normal speech and movement present Attitude: Yes cooperative Thought Content: Normal thought content Assessment and Plan Assessment and plan (1) Lumbar stenosis with neurogenic claudication: Code(s): M48.062 - Spinal stenosis, lumbar region with neurogenic claudication Status: Acute Plan I continue to recommend an L3-4 posterior lumbar interbody fusion with revision of the posterior instrumentation at L4-5 and again described to her that operation, its risks, potential benefits, the operative and postoperative course in detail answered all her questions personally. We will also remove the dorsal column stimulator lead and generator. We will obtain a new MRI in advance of her upcoming surgery to make sure that no pathology has changed she has some new symptoms in her right lower extremity. It has we will inform her of the results and make new plans, if necessary.
--- NOTE | 2024-12-29 07:56 | WPDHPUPDATE1 ---
History and Physical Update Update Date/Time: 12/29/24 07:56 History and Physical has been reviewed, including an updated exam of the patient. There are NO changes in the patient's condition. Risks, benefits, and alternatives have been discussed and questions answered. Patient agrees to proceed with procedure.
[2024-12-29] MEDS: ONDANSETRON INJ 4 MG/2 ML VIAL IV PUSH (08:20)
--- NOTE | 2024-12-29 09:18 | P.PNAN_ITS ---
Anes - Initial Pre Proc Eval Procedure: Operation Date: 12/29/24 09:30 Proposed Procedures p L3-4 Posterior Lumbar Interbody Fusion, Revision of Past Instrumentation at L4-5 - Billy Lam MD s Removal Dorsal Column Stimulator Lead and Generator - Billy Lam MD Date/Time: 12/29/24 09:18 Surgeon: Billy Lam MD Pre Op Diagnosis: L3-4, junctional stenosis Patient Data Age: 54 Gender: F Height: 1.68 m Weight: 80.1 kg Last Vital Signs Temp 36.9 C 12/29/24 08:25 Pulse 80 12/29/24 08:25 Resp 16 12/29/24 08:25 BP 120/73 12/29/24 08:25 Pulse Ox 98 12/29/24 08:25 O2 Del Method Room Air 12/29/24 08:25 Allergies Allergy/AdvReac Type Severity Reaction Status Date / Time sulfanilamide Allergy Mild Hives Verified 12/29/24 08:22 adhesive tape AdvReac Severe Rash Verified 12/29/24 08:22 Home Medications ?Medication ?Instructions ?Recorded ?Confirmed ?Type aripiprazole 20 mg tablet 20 mg PO DAILY 01/07/24 12/29/24 History cetirizine 10 mg tablet (Zyrtec) 10 mg PO DAILY 01/07/24 12/29/24 History cholecalciferol (vitamin D3) 50 50 mcg PO DAILY 01/07/24 12/29/24 History mcg (2,000 unit) capsule citalopram 40 mg tablet 40 mg PO DAILY 01/07/24 12/29/24 History cyclobenzaprine 10 mg tablet 10 mg PO TID PRN Spasms 01/07/24 12/29/24 History dicyclomine 20 mg tablet 20 mg PO BID 01/07/24 12/29/24 History multivitamin 1 tablet PO DAILY 01/07/24 12/29/24 History topiramate 100 mg tablet 150 mg PO DAILY 01/07/24 12/29/24 History vitamin E (dl, acetate) 180 mg 180 mg PO DAILY 01/07/24 12/29/24 History (400 unit) capsule hydroxyzine pamoate 25 mg capsule 25 mg PO TID 05/25/24 12/29/24 History pantoprazole 40 mg tablet,delayed 40 mg PO BID 05/25/24 12/29/24 History release vitamin K2 40 mcg tablet 40 mcg PO DAILY 05/25/24 12/29/24 History hydrocodone 7.5 mg-acetaminophen 1 tablet PO Q6H PRN pain 11/10/24 11/19/24 History 325 mg tablet eszopiclone 2 mg tablet 2 mg PO HS PRN insomnia 11/19/24 12/29/24 History Patient hx anesthesia problems: none Family hx anesthesia problems: none Results Review: All pre-operative results and documents have been reviewed as part of the pre- operative evaluation. [facility] Family History Family History Father Family history of obesity Family history of cataracts Hypertension Family history of alcoholism Family history of chronic obstructive pulmonary disease Family history of pancreatic cancer Family history of heart disease in male family member before age 55 Mother Family history of obesity Family history of mental disorder Depression Hypertension Family history of malignant neoplasm of breast in first degree relative Family history of malignant neoplasm of urinary bladder Sibling Family history of mental disorder Depression Social History Social History Years smoked: 13 Smoking status: Former smoker Tobacco type: e-cigarettes/vaping Smokeless tobacco user: dissolvable tobacco Additional smoking assessment comments: Trying to quit prior to this surgery Alcohol intake: never Substance use: current Substance use type: marijuana and painkillers Other substance usage details: smokes weekly Do You Feel Safe in your Home?: Yes Lack of Transportation: No Lack of Food: Never True Current Housing: I Have Housing Concerned About Future Housing: No Difficulty Paying Gas/Electric Bills: YES Difficulty Paying for Meds: No Currently Unemployed: No Education: Associate Degree Difficulty w/ Childcare or Family Care: No Living arrangements: with family Spiritual care concerns: No Anes - Eval Final PreProcedure Day of Procedure 12/29/24 09:18 Patient weight: overweight Heart: regular rate and rhythm Lungs: decreased breath sounds Airway: Mallampati scale class II Neurological: alert and oriented Last oral intake: >/= 8 hours ASA classification: III Emergent: no Anesthetic plan: proceed Anesthesia type and monitoring: general ETT and standard monitoring Results Review: All pre-operative results and documents have been reviewed as part of the pre- operative evaluation. Informed Consent: The patient's anesthetic plan and its attendant risks and benefits were discussed with the patient/family/POA. Questions were solicited and answers provided to the satisfaction of the patient/family/POA.
[2024-12-29] MEDS: LACTATED RINGERS 1,000 ML 30 ML IV CONT ×2 (09:20→13:43)
[2024-12-29] MEDS: MIDAZOLAM HCL (*CRX) 2 MG/2 ML VIAL IV PUSH (09:40)
[2024-12-29] MEDS: ceFAZolin 2 GM/D5W 50 ML 2 GM/50 ML BAG IVPB (10:13)
[2024-12-29] MEDS: LIDO 1%/EPINEPHRINE 1:100,000 20 ML VIAL 30 ML INFILTRATE (11:13)
[2024-12-29] MEDS: fentaNYL CITRATE INJ (*CRX) 100 MCG/2 ML VIAL 25 MCG IV PUSH ×8 (14:09→14:42)
[2024-12-29] MEDS: HYDROcodone/acetaminophen (*CRX) 10-325 MG TABLET 1 TAB PO (15:44)
--- NOTE | 2024-12-29 15:52 | ADMGEN ---
This patient, Anh Martino, was admitted to [facility] Surg Room 329-01. Patient/family oriented to hospital policies and general routines including ID bracelet, bed and alarms, visiting hours, pain management, procedures, bathroom and other care routines, personal items, smoking policy, room service/diet, and visiting hours. Information on how to activate the Rapid Response Team has been discussed. Patient/Family are encouraged to report perceived risks to care and to ask questions if they do not understand what they are told or what they should do. Report from Gisell.
[2024-12-29] MEDS: DICYCLOMINE HCL 10 MG CAPSULE 20 MG PO (16:45)
[2024-12-29] MEDS: PANTOPRAZOLE 40 MG TABLET PO (16:45)
[2024-12-29] MEDS: ceFAZolin 1 GM/NS 50 ML 1 GM/50 ML BAG IVPB (16:46)
[2024-12-29] MEDS: HYDROmorphone HCL INJ (*CRX) 1 MG/ML SYR 0.5 MG IV PUSH ×3 (16:54→22:00)
[2024-12-29] MEDS: TOPIRAMATE 25 MG TABLET 50 MG PO (21:10)
[2024-12-29] MEDS: TOPIRAMATE 100 MG TABLET PO (21:11)
[2024-12-30] VITALS (7 sets, daily range): BP systolic 102–130; BP diastolic 55–66; PULSE 77–92; RESP 18; TEMP 36.2–38.4; O2SAT 97–100
[2024-12-30] MEDS: HYDROmorphone HCL INJ (*CRX) 1 MG/ML SYR 0.5 MG IV PUSH ×6 (00:42→19:25)
[2024-12-30] MEDS: ceFAZolin 1 GM/NS 50 ML 1 GM/50 ML BAG IVPB ×3 (02:43→17:06)
[2024-12-30] MEDS: DICYCLOMINE HCL 10 MG CAPSULE 20 MG PO ×2 (07:56→16:05)
[2024-12-30] MEDS: CHOLECALCIFEROL 1,000 UNITS TABLET 2000 UNITS PO (07:56)
[2024-12-30] MEDS: ARIPiprazole 10 MG TABLET 20 MG PO (07:56)
[2024-12-30] MEDS: VITAMIN E 400 UNIT CAPSULE PO (07:57)
[2024-12-30] MEDS: PANTOPRAZOLE 40 MG TABLET PO ×2 (07:57→16:06)
[2024-12-30] MEDS: MULTIVITAMINS THERAPEUTIC TAB (*BKC) 1 TABLET PO (07:57)
[2024-12-30] MEDS: LORATADINE 10 MG TABLET PO (07:57)
[2024-12-30] MEDS: CITALOPRAM HYDROBROMIDE 20 MG TABLET 40 MG PO (07:57)
[2024-12-30] MEDS: HYDROcodone/acetaminophen (*CRX) 10-325 MG TABLET 1 TAB PO (08:12)
[2024-12-30] MEDS: oxyCODONE/ACETAMINOPHEN (*CRX) 10-325 MG TABLET 1 TAB PO ×3 (10:55→21:42)
--- NOTE | 2024-12-30 13:00 | WPDNEUROSGPN ---
Progress Note: A&P Assessment and Plan (1) Status post lumbar spinal arthrodesis: Code(s): Z98.1 - Arthrodesis status Status: Acute Plan -Continue hemovac drain today -Work on pain control; she is still requiring IV medications. Will monitor for improvement with recent adjustment to percocet -PT/OT, up to chair during day Subjective Date/time seen: 12/30/24 13:00 Interval history: Having quite a of back pain which is somewhat improved since changing medication from hydrocodone to oxycodone. Pain is only in her lower back. She does not have any pain or paresthesias into her legs. She has been able to void since her catheter was removed. She is tolerating oral intake. She ambulated in the halls with physical therapy. Exam Narrative: AOx4 Incision c/d/i Moving legs with good strength Sensation intact to light touch HV 310cc out since surgery Objective Data Vital Signs Vital Signs: Vital Signs - 24 hr 12/29/24 13:43 12/29/24 13:56 12/29/24 14:00 Temperature 97.0 F L Pulse Rate 79 100 99 Respiratory Rate 20 18 12 Blood Pressure 96/63 L 128/88 131/80 Pulse Oximetry 100 100 100 Oxygen Delivery Simple Face Mask Simple Face Mask Simple Face Mask Oxygen Flow Rate 8 8 8 12/29/24 14:15 12/29/24 14:30 12/29/24 14:45 Temperature Pulse Rate 93 97 103 H Respiratory Rate 15 15 12 Blood Pressure 131/80 122/78 117/74 Pulse Oximetry 100 98 94 Oxygen Delivery Room Air Room Air Room Air Oxygen Flow Rate 12/29/24 15:02 12/29/24 15:20 12/29/24 15:35 Temperature 97.8 F 97.8 F Pulse Rate 100 90 94 Respiratory Rate 16 18 18 Blood Pressure 116/68 126/75 119/74 Pulse Oximetry 96 97 97 Oxygen Delivery Room Air Oxygen Flow Rate 12/29/24 16:05 12/29/24 16:05 12/29/24 16:08 Temperature 97.7 F 97.7 F Pulse Rate 92 92 Respiratory Rate 18 18 Blood Pressure 120/74 120/74 Pulse Oximetry 99 99 99 Oxygen Delivery Room Air Oxygen Flow Rate 12/29/24 17:05 12/29/24 17:05 12/29/24 22:04 Temperature 98.2 F 98.2 F 98.5 F Pulse Rate 82 82 82 Respiratory Rate 18 18 18 Blood Pressure 126/76 126/76 117/64 Pulse Oximetry 97 97 96 Oxygen Delivery Oxygen Flow Rate 12/30/24 02:04 12/30/24 06:04 12/30/24 08:00 Temperature 97.4 F L 97.2 F L Pulse Rate 77 78 Respiratory Rate 18 18 Blood Pressure 110/62 111/65 Pulse Oximetry 97 97 Oxygen Delivery Room Air Oxygen Flow Rate 12/30/24 09:29 12/30/24 10:04 Temperature 98.3 F Pulse Rate 92 Respiratory Rate 18 Blood Pressure 102/55 L Pulse Oximetry 97 Oxygen Delivery Room Air Oxygen Flow Rate Intake/Output Intake/Output: Intake & Output 12/27/24 12/28/24 12/29/24 12/30/24 23:59 23:59 23:59 23:59 Intake Total 818 340 Output Total 240 1270 Balance 578 -930 Meds/Results Medications: Active Medications Generic Name Dose Route Start Last Admin Trade Name Freq PRN Reason Stop Dose Admin Al Hydrox/Mg Hydrox/Simethicone 20 ml 12/29/24 15:04 Mag Hydrox/Al Hydrox/Simeth 30 Ml Udc PO Q4H PRN Indigestion/Heartburn Aripiprazole 20 mg 12/30/24 09:00 12/30/24 07:56 Aripiprazole 10 Mg Tablet PO 20 mg QAM AL Administration Bisacodyl 10 mg 12/29/24 15:04 Bisacodyl 10 Mg Suppository RECTAL DAILY PRN Constipation Citalopram Hydrobromide 40 mg 12/30/24 09:00 12/30/24 07:57 Citalopram Hydrobromide 20 Mg Tablet PO 40 mg DAILY AL Administration Dicyclomine HCl 20 mg 12/29/24 17:00 12/30/24 07:56 Dicyclomine Hcl 10 Mg Capsule PO 20 mg BID AL Administration Docusate Sodium 100 mg 12/29/24 21:00 12/30/24 07:57 Docusate Sodium 100 Mg Capsule PO Not Given Q12HR AL Hydromorphone HCl 0.5 mg 12/29/24 15:04 12/30/24 09:03 Hydromorphone Hcl Inj (*Crx) 1 Mg/Ml Syr IV PUSH 0.5 mg Q2H PRN Administration Pain Rated 7-10 Hydroxyzine Pamoate 25 mg 12/30/24 10:09 Hydroxyzine Pamoate 25 Mg Capsule PO TID PRN Anxiety Cefazolin Sodium 1 gm in 50 mls @ 100 mls/hr 12/29/24 18:00 12/30/24 09:33 Ancef 1 Gm/Ns 50 Ml IVPB Infused Q8H AL Infusion Loratadine 10 mg 12/30/24 09:00 12/30/24 07:57 Loratadine 10 Mg Tablet PO 10 mg QAM AL Administration Multivitamins Therapeutic 1 tablet 12/30/24 09:00 12/30/24 07:57 Multivitamins Therapeutic Tab (*Bkc) PO 1 tablet DAILY AL Administration Ondansetron HCl 4 mg 12/29/24 15:04 Ondansetron Inj 4 Mg/2 Ml Vial IV PUSH Q8H PRN Nausea And Vomiting Oxycodone/Acetaminophen 1 tablet 12/30/24 10:47 Oxycodone/Acetaminophen (*Crx) 5-325 Mg Tablet PO Q4H PRN Pain Rated 4-6 Oxycodone/Acetaminophen 1 tab 12/30/24 10:47 12/30/24 10:55 Oxycodone/Acetaminophen (*Crx) 10-325 Mg Tablet PO 1 tab Q4H PRN Administration Pain Rated 7-10 Pantoprazole Sodium 40 mg 12/29/24 17:00 12/30/24 07:57 Pantoprazole 40 Mg Tablet PO 40 mg BID AL Administration Senna/Docusate Sodium 1 tab 12/29/24 15:04 Senna/Docusate Sodium Tablet PO HS PRN Constipation Topiramate 100 mg 12/29/24 21:00 12/29/24 21:11 Topiramate 100 Mg Tablet PO 100 mg HS AL Administration Topiramate 50 mg 12/29/24 21:00 12/29/24 21:10 Topiramate 25 Mg Tablet PO 50 mg HS AL Administration Vitamin D 2,000 units 12/30/24 09:00 12/30/24 07:56 Cholecalciferol 1,000 Units Tablet PO 2,000 units DAILY AL Administration Vitamin E 400 unit 12/30/24 09:00 12/30/24 07:57 Vitamin E 400 Unit Capsule PO 400 unit DAILY AL Administration Radiology Results: ITS Impressions Fluoroscopy 12/29/24 13:29 IMPRESSION: 1. Fluoroscopy utilized during removal of prior right-sided vertical jenna and pedicle screw fixation at L4-5 and placement of new instrumentation for anterior and posterior spinal fusion at L3-L4. See procedure note for further detail.
[2024-12-30] MEDS: ONDANSETRON INJ 4 MG/2 ML VIAL IV PUSH (17:05)
[2024-12-30] MEDS: ACETAMINOPHEN 325 MG TABLET 650 MG PO (17:34)
[2024-12-30] MEDS: TOPIRAMATE 25 MG TABLET 50 MG PO (20:23)
[2024-12-30] MEDS: TOPIRAMATE 100 MG TABLET PO (20:24)
[2024-12-30] MEDS: DOCUSATE SODIUM 100 MG CAPSULE PO (20:24)
[2024-12-31] MEDS: HYDROmorphone HCL INJ (*CRX) 1 MG/ML SYR 0.5 MG IV PUSH ×2 (00:14→06:28)
[2024-12-31 00:30] VITALS: TEMP 37.1
[2024-12-31] MEDS: ceFAZolin 1 GM/NS 50 ML 1 GM/50 ML BAG IVPB ×3 (02:43→17:48)
[2024-12-31] MEDS: oxyCODONE/ACETAMINOPHEN (*CRX) 10-325 MG TABLET 1 TAB PO ×2 (02:45→08:28)
[2024-12-31 06:03] VITALS: BP 106/48; PULSE 87; RESP 18; TEMP 37.1; O2SAT 96
[2024-12-31 08:00] VITALS: BP 115/64; PULSE 89; RESP 18; TEMP 36.9; O2SAT 99
[2024-12-31] MEDS: CHOLECALCIFEROL 1,000 UNITS TABLET 2000 UNITS PO (08:27)
[2024-12-31] MEDS: PANTOPRAZOLE 40 MG TABLET PO ×2 (08:27→17:48)
[2024-12-31] MEDS: LORATADINE 10 MG TABLET PO (08:28)
[2024-12-31] MEDS: CITALOPRAM HYDROBROMIDE 20 MG TABLET 40 MG PO (08:28)
[2024-12-31] MEDS: DOCUSATE SODIUM 100 MG CAPSULE PO ×2 (08:28→20:24)
[2024-12-31] MEDS: DICYCLOMINE HCL 10 MG CAPSULE 20 MG PO ×2 (08:28→17:48)
[2024-12-31] MEDS: ARIPiprazole 10 MG TABLET 20 MG PO (08:28)
[2024-12-31] MEDS: VITAMIN E 400 UNIT CAPSULE PO (08:28)
[2024-12-31] MEDS: MULTIVITAMINS THERAPEUTIC TAB (*BKC) 1 TABLET PO (08:28)
--- NOTE | 2024-12-31 12:17 | P.PNNEUSUR_ITS ---
Progress Note: A&P Assessment and Plan (1) Status post lumbar spinal arthrodesis: Code(s): Z98.1 - Arthrodesis status Status: Acute Plan -Remove hemovac drain today -I have adjusted her oral medications and added a muscle relaxer to try to avoid IV pain medications -Start DVT ppx -Anticipate discharge home tomorrow Subjective Date/time seen: 12/31/24 12:17 Interval history: Continues to have significant back pain requiring IV medications to control. No pain/paresthesias in legs. She is walking/voiding independently and tolerating oral intake. She does not feel that her pain is adequately controlled enough to go home today Review of Systems Review of Systems: All systems reviewed & are unremarkable except as noted in HPI and below Exam Narrative: AOx4 Incisions c/d/i Full strength lower extremities Sensation intact Objective Data Vital Signs Vital Signs: Vital Signs - 24 hr 12/30/24 14:04 12/30/24 17:34 12/30/24 18:04 Temperature 97.6 F 101 F H 101.2 F H Pulse Rate 86 91 Respiratory Rate 18 18 Blood Pressure 112/66 130/63 Pulse Oximetry 100 99 12/30/24 18:30 12/31/24 00:30 12/31/24 06:03 Temperature 100.4 F H 98.7 F 98.8 F Pulse Rate 87 Respiratory Rate 18 Blood Pressure 106/48 L Pulse Oximetry 96 12/31/24 08:00 Temperature 98.4 F Pulse Rate 89 Respiratory Rate 18 Blood Pressure 115/64 Pulse Oximetry 99 Intake/Output Intake/Output: Intake & Output 12/28/24 12/29/24 12/30/24 12/31/24 23:59 23:59 23:59 23:59 Intake Total 818 2930 590 Output Total 240 1360 75 Balance 578 1570 515 Meds/Results Medications: Active Medications Generic Name Dose Route Start Last Admin Trade Name Freq PRN Reason Stop Dose Admin Acetaminophen 1,000 mg 12/31/24 12:20 Acetaminophen 500 Mg Tablet PO Q6H AL Al Hydrox/Mg Hydrox/Simethicone 20 ml 12/29/24 15:04 Mag Hydrox/Al Hydrox/Simeth 30 Ml Udc PO Q4H PRN Indigestion/Heartburn Aripiprazole 20 mg 12/30/24 09:00 12/31/24 08:28 Aripiprazole 10 Mg Tablet PO 20 mg QAM AL Administration Bisacodyl 10 mg 12/29/24 15:04 Bisacodyl 10 Mg Suppository RECTAL DAILY PRN Constipation Citalopram Hydrobromide 40 mg 12/30/24 09:00 12/31/24 08:28 Citalopram Hydrobromide 20 Mg Tablet PO 40 mg DAILY AL Administration Cyclobenzaprine HCl 10 mg 12/31/24 12:16 Cyclobenzaprine Hcl 10 Mg Tablet PO Q8H PRN Muscle Spasm Dicyclomine HCl 20 mg 12/29/24 17:00 12/31/24 08:28 Dicyclomine Hcl 10 Mg Capsule PO 20 mg BID AL Administration Docusate Sodium 100 mg 12/29/24 21:00 12/31/24 08:28 Docusate Sodium 100 Mg Capsule PO 100 mg Q12HR AL Administration Hydromorphone HCl 0.5 mg 12/31/24 12:16 Hydromorphone Hcl Inj (*Crx) 2 Mg/Ml Vial IV PUSH Q3H PRN Breakthrough Pain Hydroxyzine Pamoate 25 mg 12/30/24 10:09 Hydroxyzine Pamoate 25 Mg Capsule PO TID PRN Anxiety Cefazolin Sodium 1 gm in 50 mls @ 100 mls/hr 12/29/24 18:00 12/31/24 09:05 Ancef 1 Gm/Ns 50 Ml IVPB 100 mls/hr Q8H AL Administration Loratadine 10 mg 12/30/24 09:00 12/31/24 08:28 Loratadine 10 Mg Tablet PO 10 mg QAM [facility] Administration Multivitamins Therapeutic 1 tablet 12/30/24 09:00 12/31/24 08:28 Multivitamins Therapeutic Tab (*Bkc) PO 1 tablet DAILY AL Administration Ondansetron HCl 4 mg 12/29/24 15:04 12/30/24 17:05 Ondansetron Inj 4 Mg/2 Ml Vial IV PUSH 4 mg Q8H PRN Administration Nausea And Vomiting Oxycodone HCl 5 mg 12/31/24 12:16 Oxycodone Hcl (*Crx) 5 Mg Tab Ir PO Q4H PRN Pain Rated 4-6 Oxycodone HCl 10 mg 12/31/24 12:16 Oxycodone Hcl (*Crx) 5 Mg Tab Ir PO Q4H PRN Pain Rated 7-10 Pantoprazole Sodium 40 mg 12/29/24 17:00 12/31/24 08:27 Pantoprazole 40 Mg Tablet PO 40 mg BID AL Administration Senna/Docusate Sodium 1 tab 12/29/24 15:04 Senna/Docusate Sodium Tablet PO HS PRN Constipation Topiramate 100 mg 12/29/24 21:00 12/30/24 20:24 Topiramate 100 Mg Tablet PO 100 mg HS AL Administration Topiramate 50 mg 12/29/24 21:00 12/30/24 20:23 Topiramate 25 Mg Tablet PO 50 mg HS AL Administration Vitamin D 2,000 units 12/30/24 09:00 12/31/24 08:27 Cholecalciferol 1,000 Units Tablet PO 2,000 units DAILY AL Administration Vitamin E 400 unit 12/30/24 09:00 12/31/24 08:28 Vitamin E 400 Unit Capsule PO 400 unit DAILY AL Administration Radiology Results: ITS Impressions Fluoroscopy 12/29/24 13:29 IMPRESSION: 1. Fluoroscopy utilized during removal of prior right-sided vertical jenna and pedicle screw fixation at L4-5 and placement of new instrumentation for anterior and posterior spinal fusion at L3-L4. See procedure note for further detail.
[2024-12-31] MEDS: ACETAMINOPHEN 500 MG TABLET 1000 MG PO ×2 (12:25→17:48)
[2024-12-31] MEDS: oxyCODONE HCL (*CRX) 5 MG TAB IR PO (12:25)
[2024-12-31 13:34] VITALS: BP 111/70; PULSE 87; RESP 18; TEMP 37.2; O2SAT 97
[2024-12-31] MEDS: CYCLOBENZAPRINE HCL 10 MG TABLET PO (15:55)
[2024-12-31] MEDS: oxyCODONE HCL (*CRX) 5 MG TAB IR 10 MG PO ×2 (15:55→20:24)
[2024-12-31] MEDS: TOPIRAMATE 25 MG TABLET 50 MG PO (20:24)
[2024-12-31] MEDS: TOPIRAMATE 100 MG TABLET PO (20:24)
[2024-12-31 22:00] VITALS: BP 113/60; PULSE 85; RESP 16; TEMP 36; O2SAT 98
[2025-01-01] MEDS: CYCLOBENZAPRINE HCL 10 MG TABLET PO (00:11)
[2025-01-01] MEDS: ACETAMINOPHEN 500 MG TABLET 1000 MG PO ×2 (00:11→05:21)
[2025-01-01] MEDS: oxyCODONE HCL (*CRX) 5 MG TAB IR 10 MG PO ×2 (01:15→09:14)
[2025-01-01] MEDS: oxyCODONE HCL (*CRX) 5 MG TAB IR PO (05:21)
[2025-01-01 05:23] VITALS: BP 110/63; PULSE 90; RESP 16; TEMP 36.9; O2SAT 98
--- NOTE | 2025-01-01 09:09 | WPDNEUROSGPN ---
Progress Note: A&P Assessment and Plan (1) Lumbar stenosis with neurogenic claudication: Code(s): M48.062 - Spinal stenosis, lumbar region with neurogenic claudication Status: Acute Assessment and Plan: the patient is doing well following her lumbar spinal surgery and has been seen by our team for the past several days and she is not ready to go. I will inform Dr. Lam that a she is available for discharge. Subjective Date/time seen: 01/01/25 09:09 Interval history: the patient is doing well she notes that her pain is controlled. She notes yesterday she was unsure better pain control but today she would like to go home Exam Narrative: she is awake alert in no acute distress she moves all her extremities well 5/5 strength including iliopsoas, quadriceps, hamstrings, plantar flexors, dorsiflexors, EHL incision is clean dry and intact Dermabond is intact Objective Data Vital Signs Vital Signs: Vital Signs - 24 hr 12/31/24 13:34 12/31/24 22:00 01/01/25 05:23 Temperature 98.9 F 96.8 F L 98.4 F Pulse Rate 87 85 90 Respiratory Rate 18 16 16 Blood Pressure 111/70 113/60 110/63 Pulse Oximetry 97 98 98 Intake/Output Intake/Output: Intake & Output 12/29/24 12/30/24 12/31/24 01/01/25 23:59 23:59 23:59 23:59 Intake Total 818 2930 1120 Output Total 240 1360 75 Balance 578 1570 1045 Meds/Results Medications: Active Medications Generic Name Dose Route Start Last Admin Trade Name Freq PRN Reason Stop Dose Admin Acetaminophen 1,000 mg 12/31/24 12:20 01/01/25 05:21 Acetaminophen 500 Mg Tablet PO 1,000 mg Q6H AL Administration Al Hydrox/Mg Hydrox/Simethicone 20 ml 12/29/24 15:04 Mag Hydrox/Al Hydrox/Simeth 30 Ml Udc PO Q4H PRN Indigestion/Heartburn Aripiprazole 20 mg 12/30/24 09:00 12/31/24 08:28 Aripiprazole 10 Mg Tablet PO 20 mg QAM AL Administration Bisacodyl 10 mg 12/29/24 15:04 Bisacodyl 10 Mg Suppository RECTAL DAILY PRN Constipation Citalopram Hydrobromide 40 mg 12/30/24 09:00 12/31/24 08:28 Citalopram Hydrobromide 20 Mg Tablet PO 40 mg DAILY [facility] Administration Cyclobenzaprine HCl 10 mg 12/31/24 12:16 01/01/25 00:11 Cyclobenzaprine Hcl 10 Mg Tablet PO 10 mg Q8H PRN Administration Muscle Spasm Dicyclomine HCl 20 mg 12/29/24 17:00 12/31/24 17:48 Dicyclomine Hcl 10 Mg Capsule PO 20 mg BID [facility] Administration Docusate Sodium 100 mg 12/29/24 21:00 12/31/24 20:24 Docusate Sodium 100 Mg Capsule PO 100 mg Q12HR [facility] Administration Enoxaparin Sodium 30 mg 01/01/25 09:00 Enoxaparin 30 Mg/0.3 Ml Syringe SUB-Q DAILY [facility] Hydromorphone HCl 0.5 mg 12/31/24 12:16 Hydromorphone Hcl Inj (*Crx) 2 Mg/Ml Vial IV PUSH Q3H PRN Breakthrough Pain Hydroxyzine Pamoate 25 mg 12/30/24 10:09 Hydroxyzine Pamoate 25 Mg Capsule PO TID PRN Anxiety Loratadine 10 mg 12/30/24 09:00 12/31/24 08:28 Loratadine 10 Mg Tablet PO 10 mg QAM [facility] Administration Multivitamins Therapeutic 1 tablet 12/30/24 09:00 12/31/24 08:28 Multivitamins Therapeutic Tab (*Bkc) PO 1 tablet DAILY [facility] Administration Ondansetron HCl 4 mg 12/29/24 15:04 12/30/24 17:05 Ondansetron Inj 4 Mg/2 Ml Vial IV PUSH 4 mg Q8H PRN Administration Nausea And Vomiting Oxycodone HCl 5 mg 12/31/24 12:16 01/01/25 05:21 Oxycodone Hcl (*Crx) 5 Mg Tab Ir PO 5 mg Q4H PRN Administration Pain Rated 4-6 Oxycodone HCl 10 mg 12/31/24 12:16 01/01/25 01:15 Oxycodone Hcl (*Crx) 5 Mg Tab Ir PO 10 mg Q4H PRN Administration Pain Rated 7-10 Pantoprazole Sodium 40 mg 12/29/24 17:00 12/31/24 17:48 Pantoprazole 40 Mg Tablet PO 40 mg BID AL Administration Senna/Docusate Sodium 1 tab 12/29/24 15:04 Senna/Docusate Sodium Tablet PO HS PRN Constipation Topiramate 100 mg 12/29/24 21:00 12/31/24 20:24 Topiramate 100 Mg Tablet PO 100 mg HS AL Administration Topiramate 50 mg 12/29/24 21:00 12/31/24 20:24 Topiramate 25 Mg Tablet PO 50 mg HS AL Administration Vitamin D 2,000 units 12/30/24 09:00 12/31/24 08:27 Cholecalciferol 1,000 Units Tablet PO 2,000 units DAILY AL Administration Vitamin E 400 unit 12/30/24 09:00 12/31/24 08:28 Vitamin E 400 Unit Capsule PO 400 unit DAILY AL Administration Radiology Results: ITS Impressions Fluoroscopy 12/29/24 13:29 IMPRESSION: 1. Fluoroscopy utilized during removal of prior right-sided vertical jenna and pedicle screw fixation at L4-5 and placement of new instrumentation for anterior and posterior spinal fusion at L3-L4. See procedure note for further detail.
[2025-01-01] MEDS: ARIPiprazole 10 MG TABLET 20 MG PO (09:13)
[2025-01-01] MEDS: DOCUSATE SODIUM 100 MG CAPSULE PO (09:13)
[2025-01-01] MEDS: PANTOPRAZOLE 40 MG TABLET PO (09:14)
[2025-01-01] MEDS: VITAMIN E 400 UNIT CAPSULE PO (09:14)
[2025-01-01] MEDS: DICYCLOMINE HCL 10 MG CAPSULE 20 MG PO (09:14)
[2025-01-01] MEDS: CHOLECALCIFEROL 1,000 UNITS TABLET 2000 UNITS PO (09:14)
[2025-01-01] MEDS: CITALOPRAM HYDROBROMIDE 20 MG TABLET 40 MG PO (09:14)
[2025-01-01] MEDS: LORATADINE 10 MG TABLET PO (09:15)
[2025-01-01] MEDS: MULTIVITAMINS THERAPEUTIC TAB (*BKC) 1 TABLET PO (09:15)
[2025-01-01] MEDS: ENOXAPARIN 30 MG/0.3 ML SYRINGE SUB-Q (09:19)
--- NOTE | 2025-01-04 18:37 | PM.DS ---
DS: Admitting Diagnosis Discharge Date 01/01/25 Admitting Diagnosis L3-4 junctional stenosis DS: Discharge Diagnosis Discharge Diagnosis (1) Lumbar stenosis with neurogenic claudication: Code(s): M48.062 - Spinal stenosis, lumbar region with neurogenic claudication Status: Acute DS: Summary Hospital Course Hospital Course: Anh was taken to the operating room on 12/29/2024 where the aforementioned L3-4 posterior lumbar interbody fusion with revision posterior instrumentation below was performed without complication. The patient went to the floor postoperatively. Physical and occupational therapy was involved in her care. Her drain and Cordova catheter were removed by postoperative about postoperative day 3 she was eating, ambulating, emptying her bladder and her pain was under control with by mouth pain medicine. Her wounds remained clean, dry and intact. She was afebrile with stable vital signs. She was therefore allowed to be discharged to home. Time Spent with Patient Time attestation: Total time spent providing and/or coordinating discharge services: Discharge Plan Discharge Attending physician on discharge: Billy Lam Consulting providers: Chris Quintana; Pallavi Matthews; Pasha Carbone; [place] Beard Discharging Clinician: Pasha Carbone Anticipated Discharge Date/Time: 01/01/25 09:12 Patient Disposition: Home Activity: january shower Diet: as tolerated Wound Care Instructions: follow printed instructions Discharge Instructions: Discharge Instructions Okay to ambulate. Okay to shower. Do not bathe/swim X 6 weeks. No bending, lifting, twisting or lifting heavier than 1 gallon of milk. Schedule a follow-up clinic appointment in 2 weeks. Patient Instructions: Antibiotic Form Patient Language: Lao Stand Alone Forms: General Discharge Information Follow-up/Referrals: Billy Lam MD [Physician] - Discharge Medications: New oxycodone 5 mg Tablet 5 mg PO Q4H PRN (Reason: Pain Rated 4-6) Qty: 32 0RF cyclobenzaprine 10 mg Tablet 10 mg PO Q8H PRN (Reason: Muscle Spasm) Qty: 30 0RF Continued hydrocodone-acetaminophen 7.5-325 mg tablet 1 tablet PO Q6H PRN (Reason: pain) aripiprazole 20 mg tablet 20 mg PO DAILY citalopram 40 mg tablet 40 mg PO DAILY cyclobenzaprine 10 mg tablet 10 mg PO TID PRN (Reason: Spasms) cholecalciferol (vitamin D3) 50 mcg (2,000 unit) capsule 50 mcg PO DAILY multivitamin Tablet 1 tablet PO DAILY dicyclomine 20 mg tablet 20 mg PO BID topiramate 100 mg tablet 150 mg PO DAILY Rx Instructions: Says takes at HS. vitamin E (dl, acetate) 180 mg (400 unit) capsule 180 mg PO DAILY cetirizine [Zyrtec] 10 mg tablet 10 mg PO DAILY pantoprazole 40 mg tablet,delayed release (DR/EC) 40 mg PO BID hydroxyzine pamoate 25 mg capsule 25 mg PO TID vitamin K2 40 mcg Tablet 40 mcg PO DAILY eszopiclone 2 mg tablet 2 mg PO HS PRN (Reason: insomnia) Date of admission: 12/29/24 15:04 Primary Care Provider: SerafinUte Admitting Provider: Billy Lam Attending physician on admission: Billy Lam Condition: Improved
--- NOTE | 2025-01-12 17:01 | P.OP_ITS ---
Procedure Note - Detailed Date of Procedure 12/29/24 Pre-op Diagnosis L3-4, junctional stenosis Post-op Diagnosis Same Procedure Performed L3-4 complete laminectomy bilateral facetectomy, L3-4 complete diskectomy and interbody arthrodesis utilizing local autograft bone, L3-4 pedicle screw instrumentation, L4-5 removal of posterior instrumentation Surgeon Billy Lam MD Anesthesia General Description of Procedure Patient was brought to the operating room in the supine position, was sedated, intubated placed under general anesthesia in routine fashion. She was then turned into the prone position on Jae frame. There operation her back was examined, marked for incision, prepped and draped routine sterile fashion. Incision was marked over the L3 through 5 spinous processes in the midline. This area was injected with 0.5% lidocaine with [id number] epinephrine. Intravenous antibiotics given prior to incision. Incision was made with a 10 blade scalpel down to the lumbodorsal fascia. A subperiosteal dissection of the muscle soft tissue away from spinous process and lamina at L3 was performed with a subperiosteal elevator and Bovie cautery. A verifying x-rays obtained to verify the level of operation. The instrumentation at L4-5 was uncovered using Bovie cautery. The unilateral instrumentation L4-5 was removed using the appropriate drivers. The L3 spinous process was removed with a Evaristo rongeur. Kerrison punches, curved curettes and Leksell rongeur used to remove the lamina in the midline and to the soft contents of the canal were encountered. Midas-Jose Alberto drill was then used to resect pars bilaterally at L3. The inferior tissue process and facet of L3 could then be removed bilaterally. These places spinous process stripped free of soft tissue and morselized for later use as interbody autograft. Kerrison punches and curved curettes were used to define a plane with the dura and removed bone and ligament flush the pedicle and through the foramina widely decompressing the exiting nerve roots. With the thecal sac retracted and protected the disc space was entered bilaterally using an 11 blade scalpel. Scrapers a Veress sizes, curettes Veress configurations, pituitary rongeur and a rasp were used to remove as much cartilaginous endplate and disc material as pos sible down to bleeding cortical flat surfaces on the opposing bones. The disc spaces were then sized appropriately sized interbody devices were chosen and filled with local autograft bone. The disc space was likewise filled with local autograft bone medially and anteriorly. The interbody devices were then placed with 2-3 mm countersink within the disc space bilaterally. Pedicle screw instrumentation was performed at L4-L5 by observing and palpating the pedicle while a hole was made in superior articular process above the pedicle using a Midas Jose Alberto drill. The pedicle was then cannulated with a pedicle probe, checked for continuity with the ball probe, tapped with a 5.5 mm tap and a 6.5 x 50 mm screw was placed in each pedicle on each side. Rods were placed in the screw heads on either side and secured in position using the capsule that purpose. These were definitively tightened with a torque and anti torque device. A verifying x-rays obtained to verify good position of the inst rumentation which was confirmed. The wound was then copiously irrigated with bacitracin irrigation all bleeding stopped with bipolar and Bovie cautery Gelfoam thrombin powder. The wound was then closed in layered fashion with 2-0 Vicryl interrupted sutures in the lumbodorsal fascia and Kellee's layer. 3-0 Vicryl buried interrupted sutures were placed in the dermis and skin was closed with a running 4-0 Monocryl subcuticular stitch and dressed with Dermabond. A medium Hemovac drain had been left in the subfascial position buried out to the inferior right of the incision prior to closure. Patient was allowed to wake up in the operating room and was taken to the recovery room in stable condition. There were no immediate complications of this operation. All counts reported correct the end of the case. Blood loss was 300 cc. The patient was neurologically at her baseline postoperatively. CPT codes: 35380, 81512, 00722, 81203, 61707, 23642 Estimated Blood Loss 300 Drains Yes Complications None Condition Stable Disposition PACU [facility] Billing Surgery - Charge Forward: Surgery Billing
== END 2025-01-01 11:20 | disposition home or self-care (01) | DRG 451 ==
LOC: ANH3MEDSUR 15:06
PROVIDERS: Admitting Provider Neurological Surgery; PCP Nurse Practitioner Family; Visit Provider Neurological Surgery
PROC: 0SG00AJ Fusion of Lumbar Vertebral Joint with Interbody Fusion Device, Posterior Approach, Anterior Column, Open Approach (ICD-10-PCS; CPT 22612; principal; 2024-12-29 09:30)
PROC: 0SG00AJ Fusion of Lumbar Vertebral Joint with Interbody Fusion Device, Posterior Approach, Anterior Column, Open Approach (ICD-10-PCS; 2024-12-29 09:30)
DX: M48.062 Spinal stenosis, lumbar region with neurogenic claudication (principal)
CPT/HCPCS: 97161; 97165; 97530; 99199; A9270; C1713; J0690; J1100; J1171; J1596; J1650; J2003; J2004; J2250; J2371; J2405; J2704; J3010; J7120

== ENCOUNTER 2025-02-10 08:39 | Outpatient (CLI) | payer MEDICARE, SELFPAY ==
--- NOTE | ~2025-02-10 | XR_ITS ---
XR lumbar spine 2-3V 02/10/2025 08:57 Indication: Spinal stenosis. Postop 6 weeks. Procedure: 3 views lumbar spine Comparison: 03/28/2024 Findings: Interval placement of left-sided pedicular screws at L3-4. There is a prosthetic disc devic e at L3-4, new since prior study. There are laminectomy changes at L3. Pedicle screws appear to be in tact. There is anterior fusion and discectomy at L4-5 and L5-S1. There is facet hypertrophy at L4-5 a nd L5-S1. Interval removal of spinal stimulator. There are cholecystectomy clips. Impression: 1: Postoperative changes consistent with fusion at L3-S1 with interval placement of left-sided pedicu lar screws and prosthetic disc device at L3-4. Reviewed, dictated and finalized at location A. Impression: 1: Postoperative changes consistent with fusion at L3-S1 with interval placemen t of left-sided pedicular screws and prosthetic disc device at L3-4.
--- OUTSIDE RECORDS SUMMARY | 2025-02-10 08:43 | XMS_ITS | Clinical Summary ---
Author Organization [facility] [facility] [place] [address] [place] [address] Care Team Providers Care Hazardous Waste Management Specialist Name Role Phone Unavailable Primary Care Provider [...]
--- OUTSIDE RECORDS SUMMARY | 2025-02-10 08:43 | XMS_ITS | Data Portability ---
Author Organization DEEPTHI SARABrady Henao Address [address] [place] [address] Care Team Providers Care Bog Worker Name Role Phone PEBBLES SALMERON Primary Care Provider [phone] [facility] MEGAN ROJAS Knitting Tester Assessment Encounter Date Assessment Date Assessment LastModified [...] sudden . These risks 3in 1000-3 in [address]. She is agreeable to proceed with procedure. [...] sudden . These risks 3in 1000-3 in [address]. She is agreeable to proceed with procedure. [...] Organization Details Last Modified Time Details Appointments None recorded. Lab lipid panel, serum 2023 024 hared[facility], [address], [address], [place], [address], 12/23/202 4 07:51:14 lipid panel, serum 2023 024 [facility] [address] [place], [address], 4 07:54:18 Referral cardiolog ist referral - needs surgery clearance /stress test 2023 024 [facility], [address], [address], [place], [address], 5 10:37:35 Procedures lexiscan cardiolit e stress test (PROC) 2023 024 [facility], [address], [place], [address], 5 14:36:55 Surgeries left heart catheteri zation (SURG) 2023 024 [id number] Luis Sloanigel, [address], [address], [place], [address], 4 08:12:39 Imaging MAMMO, screening , digital, bilateral 2024 025 [facility] Scheduling, [address] [facility], [place], [address], 5 14:37:25 Medication Orders None recorded. Patient TargetsNo targets recorded. Patient Instructions Encounter Date Encounter Id Patient Instructions Last Modified By Organization Details Last Modified Time 06/04/2024 [id number] A healthy lifestyle: care instructions [email or web address] Not available 06/04/2024 22:51:45 01/14/2025 [id number] A healthy lifestyle: care instructions Not available 01/28/2025 23:16:50 advance care planning: care instructions Not available 01/14/2025 14:36:59 preventing falls : care instructions Not available 01/14/2025 14:36:59 Medicare Wellnes s Preventive Checklist Not available 01/14/2025 14:37:00 eating healthy foods: care instructions Not available 01/14/2025 14:37:00 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 Referral Test Design Engineer Referral for El ectrocardiogram abnormal needs surgery clearance/stress test Referring Physician: Pebbles Salmeron, Cad Application Support Specialist, Encounter Date: 06/04/2024 Results Created Date Observation Date Name Description Value Unit Range Abnormal Flag Note LastModifiedBy Organization Detail LastModifiedTime 09/14/20 24 09/14/2024 LIPID PANEL cholesterol 231 mg/dL <200 high Not Available [facility] (Lab) [address] [facility], [place], [address], 09/14/2024 10:38:13 09/14/20 24 09/14/2024 LIPID PANEL triglyceride 246 mg/dL <150 high Not Available [facility] (Lab) [address], [place], [address], 09/14/2024 10:38:13 09/14/20 24 09/14/2024 LIPID PANEL HDL cholesterol 61 mg/dL >40.0 Not Available [facility] (Lab) [address], [place], [address], 09/14/2024 10:38:13 09/14/20 24 09/14/2024 LIPID PANEL LDL calculated 121 mg/dL <100 high Not Available [facility] (Lab) [address], [place], [address], 09/14/2024 10:38:13 09/14/20 24 09/14/2024 LIPID PANEL non HDL cholesterol 170 mg/dL <130 high Not Available [facility] (Lab) [address], [place], [address], 09/14/2024 10:38:13 09/14/20 24 09/14/2024 LIPID PANEL chol/HDL ratio 3.8 0.0-4. 5 Not Available [facility] (Lab) [address], [place], [address], 09/14/2024 10:38:13 09/14/20 24 09/14/2024 LIPID PANEL VLDL 49 mg/dL 5-55 Not Available [facility] (Lab) [address], [place], [address], 09/14/2024 10:38:13 09/14/20 24 09/14/2024 LIPID PANEL [...] [facility] ([facility]) [address], [place], [address], 09/14/2024 10:38:13 09/14/20 24 09/14/2024 Lipid 1995 panel - Serum or Plasm a cholesterol [mass/volume ] in serum or plasma 231 text: <200 mg/dL high BERLIN STERO L 231 (H) <200 MG/DL 09/14 9:38 AM DIRECTOR DIGITAL STRATEGY [facility] Not Available Not Available 10/29/2024 14:41:48 09/14/20 24 09/14/2024 Lipid 1995 panel - Serum or Plasm a triglyceride [mass/volume ] in serum or plasma 246 text: <150 mg/dL high TRIGL YCERI RAMANA 246 (H) <150 MG/DL 09/14 9:38 AM [facility] Not Available Not Available 10/29/2024 14:41:48 09/14/20 24 09/14/2024 Lipid 1996 panel - Serum or Plasm a cholesterol in HDL [mass/volume ] in serum or plasma 61 text: >40.0 mg/dL HDL 61 >40.0 MG/DL 09/14 9:38 AM [facility] Not Available Not Available 10/29/2024 14:41:48 09/14/20 24 09/14/2024 Lipid 1996 panel - Serum or Plasm a cholesterol in LDL [mass/volume ] in serum or plasma by calculation 121 text: <100 mg/dL high LDL (CALC ULATE D) 121 (H) <100 MG/DL 09/14 9:38 AM [facility] Not Available Not Available 10/29/2024 14:41:48 09/14/20 24 09/14/2024 Lipid 1996 panel - Serum or Plasm a cholesterol non HDL [mass/volume ] in serum or plasma 170 text: <130 mg/dL high NON HDL BERLIN STERO L 170 (H) <130 MG/DL 09/14 9:38 AM [facility] Not Available Not Available 10/29/2024 14:41:48 09/14/20 24 09/14/2024 Lipid 1996 panel - Serum or Plasm a cholesterol. total/choles terol in HDL [mass ratio] in serum or plasma 3.8 low: 0high: 4.5 CHOL/ HDL RATIO 3.8 0.0 - 4.5 09/14 9:38 AM [facility] Not Available Not Available 10/29/2024 14:41:48 09/14/20 24 09/14/2024 Lipid 1996 panel - Serum or Plasm a cholesterol in VLDL [mass/volume ] in serum or plasma by calculation 49 text: 5 - 55 mg/dL VLDL CALCU LATIO N 49 5 - 55 MG/DL 09/14 9:38 AM [facility] Not Available Not Available 10/29/2024 14:41:48 09/14/20 24 09/14/2024 Lipid 1996 panel - Serum or Plasm a service comment LIPID INTER PRETA TION 09/14 9:38 AM DIRECTOR DIGITAL STRATEGY [facility] Not Available Not Available 10/29/2024 14:41:48 09/14/20 24 09/14/2024 Lipid 1996 panel - Serum or Plasm a interpretati on and review of laboratory results Abnorm al Not Available Not Available 14:41:48 11/07/19 25 11/07/2024 MAGNE SIUM magnesium 2.3 mg/dL 1.8-2. 4 Not Available [facility] (Lab) [address] [facility], [place], [address], 11/07/2024 11:25:14 11/07/19 25 11/07/2024 RENAL FUNCT ION PANEL glucose 129 mg/dL 70-99 high Not Available [facility] (Lab) [address], [place], [address], 11/07/2024 11:25:16 11/07/19 25 11/07/2024 RENAL FUNCT ION PANEL BUN 25 mg/dL 7-18 high Not Available [facility] (Lab) [place], [address], 11/07/2024 11:25:16 11/07/19 25 11/07/2024 RENAL FUNCT ION PANEL creatinine 1.18 mg/dL 0.55-1 .02 high Not Available [facility] (Lab) [place], [address], 11/07/2024 11:25:16 11/07/19 25 11/07/2024 RENAL FUNCT ION PANEL sodium 143 mmol/ L 136-14 5 Not Available [facility] (Lab) [address], [place], [address], 11/07/2024 11:25:16 11/07/19 25 11/07/2024 RENAL FUNCT ION PANEL potassium 3.8 mmol/ L 3.5-5. 1 Not Available [facility] (Lab) [place], [address], 11/07/2024 11:25:16 11/07/19 25 11/07/2024 RENAL FUNCT ION PANEL chloride 112 mmol/ L 97-115 Not Available [facility] (Lab) [place], [address], 11/07/2024 11:25:16 11/07/19 25 11/07/2024 RENAL FUNCT ION PANEL total CO2 26.4 mmol/ L 21-32 Not Available [facility] (Lab) [address], [place], [address], 11/07/2024 11:25:16 11/07/19 25 11/07/2024 RENAL FUNCT ION PANEL calcium 9.5 mg/dL 8.5-10 .1 Not Available [facility] (Lab) [address] [facility] [place], [address], 11/07/2024 11:25:16 11/07/19 25 11/07/2024 RENAL FUNCT ION PANEL albumin 3.5 g/dL 3.4-5. 0 Not Available [facility] (Lab) [place], [address], 11/07/2024 11:25:16 11/07/19 25 11/07/2024 RENAL FUNCT ION PANEL phosphorus 3.2 mg/dL 2.5-4. 9 Not Available [facility] (Lab) [address] [facility], [place], [address], 11/07/2024 11:25:16 11/07/19 25 11/07/2024 RENAL FUNCT ION PANEL anion gap 4.6 mmol/ L 2-10 Not Available [facility] (Lab) [address] [facility], [place], [address], 11/07/2024 11:25:16 11/07/19 25 11/07/2024 RENAL FUNCT ION PANEL BUN creatinine ratio 21.2 6-26 Not Available [facility] (Lab) [address] [facility], [place], [address], 11/07/2024 11:25:16 11/07/19 25 11/07/2024 RENAL FUNCT [...] [facility] ([facility]) [place], [address], 11/07/2024 11:25:16 11/07/19 25 11/07/2024 UA WITH MICRO specimen type URINE CLEAN CATCH Not Available [facility] (Lab) [place], [address], 11/07/2024 12:14:00 11/07/19 25 11/07/2024 UA WITH MICRO color LIGHT YELLOW Not Available [facility] (Lab) [place], [address], 11/07/2024 12:14:00 11/07/19 25 11/07/2024 UA WITH MICRO clarity CLEAR Not Available [facility] (Lab) [place], [address], 11/07/2024 12:14:00 11/07/19 25 11/07/2024 UA WITH MICRO specific gravity 1.015 1.001- 1.030 Not Available [facility] (Lab) [place], [address], 11/07/2024 12:14:00 11/07/19 25 11/07/2024 UA WITH MICRO pH, urine 6.5 5.0-9. 0 Not Available [facility] (Lab) [place], [address], 11/07/2024 12:14:00 11/07/19 25 11/07/2024 UA WITH MICRO leukocytes 250 neg abnormal Not Available [facility] (Lab) [place], [address], 11/07/2024 12:14:00 11/07/19 25 11/07/2024 UA WITH MICRO nitrite NEGATI VE neg Not Available [facility] (Lab) [place], [address], 11/07/2024 12:14:00 11/07/19 25 11/07/2024 UA WITH MICRO protein NEGATI VE mg/dL <[address] [facility] (Lab) [place], [address], 11/07/2024 12:14:00 11/07/19 25 11/07/2024 UA WITH MICRO glucose NORMAL mg/dL norm Not Available [facility] (Lab) [place], [address], 11/07/2024 12:14:00 11/07/19 25 11/07/2024 UA WITH MICRO ketone NEGATI VE mg/dL neg Not Available [facility] (Lab) [address] [facility], [place], [address], 11/07/2024 12:14:00 11/07/19 25 11/07/2024 UA WITH MICRO urobilinogen NORMAL mg/dL norm Not Available [facility] (Lab) [place], [address], 11/07/2024 12:14:00 11/07/19 25 11/07/2024 UA WITH MICRO bilirubin NEGATI VE mg/dL neg Not Available [facility] (Lab) [place], [address], 11/07/2024 12:14:00 11/07/19 25 11/07/2024 UA WITH MICRO blood NEGATI VE neg Not Available [facility] (Lab) [place], [address], 11/07/2024 12:14:00 11/07/19 25 11/07/2024 UA WITH MICRO mucous RARE /lpf Not Available [facility] (Lab) [place], [address], 11/07/2024 12:14:00 11/07/19 25 11/07/2024 UA WITH MICRO WBC 3 /hpf <6 Not Available [facility] (Lab) [place], [address], 11/07/2024 12:14:00 11/07/19 25 11/07/2024 UA WITH MICRO RBC 1 /hpf <6 Not Available [facility] (Lab) [address], [place], [address], 11/07/2024 12:14:00 11/07/19 25 11/07/2024 UA WITH MICRO squamous epithelial RARE /hpf Not Available [facility] (Lab) [place], [address], 11/07/2024 12:14:00 11/07/19 25 11/07/2024 MICRO ALB/C REAT RATIO creatinine, urine 69.8 mg/dL 28-217 Not Available [facility] (Lab) [place], [address], 11/07/2024 12:30:19 11/07/19 25 11/07/2024 MICRO ALB/C REAT RATIO microalbumin , urine 0.7 mg/dL <2.0 Not Available [facility] (Lab) [address], [place], [address], 11/07/2024 12:30:19 11/07/19 25 11/07/2024 MICRO ALB/C REAT RATIO malb/creat ratio 9.8 mg/g <30 Not Available [facility] (Lab) [place], [address], 11/07/2024 12:30:19 11/07/19 25 11/07/2024 Renal funct ion 1999 panel - Serum or Plasm a glucose [mass/volume ] in serum or plasma 129 text: 70 - 99 mg/dL high GLUCO SE 129 (H) 70 - 99 MG/DL 11/07 10:25 AM [facility] Not Available Not Available 01/14/2025 14:09:53 11/07/19 25 11/07/2024 Renal funct ion 1999 panel - Serum or Plasm a urea nitrogen [mass/volume ] in serum or plasma 25 text: 7 - 18 mg/dL high BUN 25 (H) 7 - 18 MG/DL 11/07 10:25 AM [facility] Not Available Not Available 01/14/2025 14:09:53 11/07/19 25 11/07/2024 Renal funct ion 1999 panel - Serum or Plasm a creatinine [mass/volume ] in serum or plasma 1.18 text: 0.55 - 1.02 mg/dL high CREAT ININE S/P/B 1.18 (H) 0.55 - 1.02 MG/DL 11/07 10:25 AM [facility] Not Available Not Available 01/14/2025 14:09:53 11/07/19 25 11/07/2024 Renal funct ion 1999 panel - Serum or Plasm a sodium [moles/volum e] in serum or plasma 143 text: 136 - 145 mmol/L SODIU M S/P/B 143 136 - 145 MMOL/ L 11/07 10:25 AM [facility] Not Available Not Available 01/14/2025 14:09:53 11/07/1911/07/2024 Renal funct ion 1999 panel - Serum or Plasm a potassium [moles/volum e] in serum or plasma 3.8 text: 3.5 - 5.1 mmol/L POTAS SIUM S/P/B 3.8 3.5 - 5.1 MMOL/ L 11/07 10:25 AM [facility] Not Available Not Available 01/14/2025 14:09:53 11/07/19 25 11/07/2024 Renal funct ion 1999 panel - Serum or Plasm a chloride [moles/volum e] in serum or plasma 112 text: 97 - 115 mmol/L CHLOR CHARLEE S/P/B 112 97 - 115 MMOL/ L 11/07 10:25 AM [facility] Not Available Not Available 01/14/2025 14:09:53 11/07/19 25 11/07/2024 Renal funct ion 1999 panel - Serum or Plasm a carbon dioxide, total [moles/volum e] in serum or plasma 26.4 text: 21 - 32 mmol/L CO2 26.4 21 - 32 MMOL/ L 11/07 10:25 AM [facility] Not Available Not Available 01/14/2025 14:09:53 11/07/19 25 11/07/2024 Renal funct ion 1999 panel - Serum or Plasm a calcium [mass/volume ] in serum or plasma 9.5 text: 8.5 - 10.1 mg/dL CALCI UM S/P/B 9.5 8.5 - 10.1 MG/DL 11/07 10:25 AM [facility] Not Available Not Available 01/14/2025 14:09:53 11/07/19 25 11/07/2024 Renal funct ion 1999 panel - Serum or Plasm a albumin [mass/volume ] in serum or plasma 3.5 text: 3.4 - 5.0 g/dL ALBUM IN S/P/B 3.5 3.4 - 5.0 G/DL 11/07 10:25 AM [facility] Not Available Not Available 01/14/2025 14:09:53 11/07/19 25 11/07/2024 Renal funct ion 1999 panel - Serum or Plasm a phosphate [mass/volume ] in serum or plasma 3.2 text: 2.5 - 4.9 mg/dL PHOSP HORUS 3.2 2.5 - 4.9 MG/DL 11/07 10:25 AM [facility] Not Available Not Available 01/14/2025 14:09:53 11/07/19 25 11/07/2024 Renal funct ion 1999 panel - Serum or Plasm a anion gap in serum or plasma by calculation 4.6 text: 2 - 10 mmol/L ANION GAP 4.6 2 - 10 MMOL/ L 11/07 10:25 AM [facility] Not Available Not Available 01/14/2025 14:09:53 11/07/19 25 11/07/2024 Renal funct ion 1999 panel - Serum or Plasm a urea nitrogen/cre atinine [mass ratio] in serum or plasma 21.2 low: 6high: 26 BUN CREAT ININE RATIO 21.2 6 - 26 11/07 10:25 AM [facility] Not Available Not Available 01/14/2025 14:09:53 11/07/19 25 11/07/2024 Renal funct ion 1999 panel - Serum or Plasm a glomerular filtration rate [volume rate/area] in serum, plasma or blood by creatinine-b ased formula (CKD-epi 2020)/1.73 sq M 55 text: >90 mL/min /1.73 M2 low GFR ESTIM ATE 55 (L) >90 ML/KS N/1.7 3 M2 11/07 10:25 AM [facility] Not Available Not Available 01/14/2025 14:09:53 11/07/19 25 11/07/2024 Renal funct ion 1999 panel - Serum or Plasm a interpretati on and review of laboratory results Abnorm al Not Available Not Available 14:09:53 11/07/1911/07/2024 Magne sium [Mass /volu me] in Serum or Plasm a magnesium [mass/volume ] in serum or plasma 2.3 text: 1.8 - 2.4 mg/dL MAGNE SIUM 2.3 1.8 - 2.4 MG/DL 11/07 10:25 AM [facility] Not Available Not Available 01/14/2025 14:09:53 11/07/19 25 11/07/2024 Urina lysis compl ete panel - Urine collection method - specimen URINE CLEAN CATCH SPECI MEN TYPE URINE CLEAN CATCH 11/07 8:20 AM [facility] Not Available Not Available 01/14/2025 14:09:53 11/07/19 25 11/07/2024 Urina lysis compl ete panel - Urine color of urine LIGHT YELLOW COLOR (U) LIGHT YELLO W 11/07 11:13 AM [facility] Not Available Not Available 01/14/2025 14:09:53 11/07/19 25 11/07/2024 Urina lysis compl ete panel - Urine clarity of urine CLEAR TRANS PAREN CY CLEAR 11/07 11:13 AM [facility] Not Available Not Available 01/14/2025 14:09:53 11/07/19 25 11/07/2024 Urina lysis compl ete panel - Urine specific gravity of urine 1.015 low: 1.001h igh: 1.03 SPECI FIC GRAVI TY (U) 1.015 1.001 - 1.030 11/07 11:13 AM [facility] Not Available Not Available 01/14/2025 14:09:53 11/07/19 25 11/07/2024 Urina lysis compl ete panel - Urine pH of urine 6.5 low: 5high: 9 U PH 6.5 5.0 - 9.0 11/07 11:13 AM [facility] Not Available Not Available 01/14/2025 14:09:53 11/07/19 25 11/07/2024 Urina lysis compl ete panel - Urine leukocytes [#/volume] in urine by test strip 250 text: negati ve abnormal LEUKO CYTES (U) 250 (A) NEGAT VINCE 11/07 11:13 AM [facility] Not Available Not Available 01/14/2025 14:09:53 11/07/19 25 11/07/2024 Urina lysis compl ete panel - Urine nitrite [presence] in urine NEGATI VE text: negati ve NITRI ERICA NEGAT VINCE NEGAT VINCE 11/07 11:13 AM [facility] Not Available Not Available 01/14/2025 14:09:53 11/07/19 25 11/07/2024 Urina lysis compl ete panel - Urine protein [mass/volume ] in urine by test strip NEGATI VE text: <30 mg/dL PROTE IN RANDO M (U) NEGAT VINCE <30 MG/DL 11/07 11:13 AM [facility] Not Available Not Available 01/14/2025 14:09:53 11/07/19 25 11/07/2024 Urina lysis compl ete panel - Urine glucose [mass/volume ] in urine NORMAL text: normal mg/dL GLUCO SE (U) KAYLEEN L KAYLEEN L MG/DL 11/07 11:13 AM [facility] Not Available Not Available 01/14/2025 14:09:53 11/07/19 25 11/07/2024 Urina lysis compl ete panel - Urine ketones [mass/volume ] in urine by test strip NEGATI VE text: negati ve mg/dL KETON ES MG/DL (U) NEGAT VINCE NEGAT VINCE MG/DL 11/07 11:13 AM [facility] Not Available Not Available 01/14/2025 14:09:53 11/07/19 25 11/07/2024 Urina lysis compl ete panel - Urine urobilinogen [units/volum e] in urine by test strip NORMAL text: normal mg/dL UROBI LINOG EN KAYLEEN L KAYLEEN L MG/DL 11/07 11:13 AM [facility] Not Available Not Available 01/14/2025 14:09:53 11/07/19 25 11/07/2024 Urina lysis compl ete panel - Urine bilirubin.to jake [mass/volume ] in urine NEGATI VE text: negati ve mg/dL BILIR UBIN (U) NEGAT VINCE NEGAT VINCE MG/DL 11/07 11:13 AM [facility] Not Available Not Available 01/14/2025 14:09:53 11/07/19 25 11/07/2024 Urina lysis compl ete panel - Urine erythrocytes [#/volume] in urine by automated test strip NEGATI VE text: negati ve BLOOD (U) NEGAT VINCE NEGAT VINCE 11/07 11:13 AM [facility] Not Available Not Available 01/14/2025 14:09:53 11/07/19 25 11/07/2024 Urina lysis compl ete panel - Urine mucus [#/area] in urine sediment by microscopy low power field RARE text: /lpf MUCUS RARE /LPF 11/07 11:13 AM [facility] Not Available Not Available 01/14/2025 14:09:53 11/07/19 25 11/07/2024 Urina lysis compl ete panel - Urine leukocytes [#/area] in urine sediment by microscopy high power field 3 text: <6 /hpf WBC/H PF 3 <6 /HPF 11/07 11:13 AM [facility] Not Available Not Available 01/14/2025 14:09:53 11/07/19 25 11/07/2024 Urina lysis compl ete panel - Urine erythrocytes [#/area] in urine sediment by microscopy high power field 1 text: <6 /hpf RBC/H PF 1 <6 /HPF 11/07 11:13 AM [facility] Not Available Not Available 01/14/2025 14:09:53 11/07/19 25 11/07/2024 Urina lysis compl ete panel - Urine epithelial cells.squamo us [#/area] in urine sediment by microscopy high power field RARE text: /hpf SQUAM OUS EPITH ELIAL S RARE /HPF 11/07 11:13 AM [facility] Not Available Not Available 01/14/2025 14:09:53 11/07/19 25 11/07/2024 Urina lysis compl ete panel - Urine interpretati on and review of laboratory results Abnorm al Not Available Not Available 14:09:53 11/07/19 25 11/07/2024 MICRO ALBUM IN CREAT RATIO , URINE RANDO M creatinine [mass/volume ] in urine 69.8 text: 28 - 217 mg/dL CREAT ININE (U) 69.8 28 - 217 MG/DL 11/07 11:30 AM [facility] [employer] STR[employer]GY [facility] Not Available Not Available 01/14/2025 14:09:53 11/07/19 25 11/07/2024 MICRO ALBUM IN CREAT RATIO , URINE RANDO M microalbumin [mass/volume ] in urine 0.7 mg/dL high: 2mg/dL MICRO ALBUM IN (U) 0.7 <2.0 mg/dL 11/07 11:30 AM [facility] Not Available Not Available 01/14/2025 14:09:53 11/07/19 25 11/07/2024 MICRO ALBUM IN CREAT RATIO , URINE RANDO M microalbumin /creatinine [mass ratio] in urine 9.8 mg/g high: 30mg/g ALBUM IN/CR EAT RATIO 9.8 <30 MG/G 11/07 11:30 AM [facility] Not Available Not Available 01/14/2025 14:09:53 05/28/20 24 05/27/2024 kandi barron am No observ ation record ed. [address], [address], 06/04/2024 14:44:55 07/30/20 24 07/30/2024 XR, chest No observ ation record ed. [address] [address], [place], [address], 08/06/2024 12:56:39 08/03/20 24 08/03/2024 jeremías can cardi olite stres s test (PROC ) No observ ation record ed. [facility] Cardiology Department [address] [place] [address], [id number], 08/03/2024 15:09:38 08/03/20 24 08/03/2024 jeremías can cardi olite stres s test (PROC ) No observ ation record ed. [facility] [address] , [place], [address], 08/12/2024 14:04:20 08/03/20 24 08/03/2024 jeremías nieves cardi olite stres s test (PROC ) No observ ation record ed. [facility]iology [address], [place], [address], 08/04/2024 07:48:31 12/11/19 25 xr ABD AP+la t [facility] [address] [place] [address] [facility] [address] [place] [address] RON TEAGUE S: XR ABD AP+LAT DATE: 025 2:53 PM HISTOR Y: Check for abando zana leads and stimul ator placem ent prior to MRI exam 53-yea r-old female . Planne d MRI lumbar spine withou t contra st today. Reques mirza evalua tion of spinal stimul ator and leads prior to MRI. 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 Ordere d By: FRANCK SANTOS ES Electr onical ly Signed By: Reba Hankins on 025 3:23 PM Interp reted By: Reba Hankins , 025 3:06 PM [facility] [address] [facility], [place], [address], 12/10/2024 19:18:03 12/15/19 25 MRI lumb spine wo con [facility] [address] [facility] [place] [address] [facility] [address] [facility] [place] [address] EXAMIN ATION: MRI LUMB SPINE WO CON HISTOR Y: Lower back pain. Lumbar spinal stenos is. Neurog enic claudi cation . COMPAR HESHAM: MRI lumbar spine 024. TECHNI QUE: Multis [...] lumbar spine. There is anteri or and poultry farm worker ior spinal fusion hardwa re at L4-L5 [...] left neural forami nal stenos is. L4-L5: Shift Supervisor ior disc osseou s comple x. Bilate ral facet arthro jodi. Mild spinal canal stenos is. Modera te right neural forami nal stenos is. Mild left neural forami nal stenos is. L5-S1: Shift Supervisor ior disc osseou s comple x. Bilate [...] alitie s. Referr ed By: FRANCK SANTOS ES Electr onical ly Signed By: Danny Chaudhari DO on 025 9:54 PM Interp reted By: Danny Chaudhari DO, 025 9:43 PM [facility] [address] [facility], [place], [address], 12/15/2024 10:22:24 01/18/20 25 MRI cerv spine wo con [facility] [address] [place] [address] [facility] [address] [facility] [address] INDICA TION: Neck pain. Left upper extrem ity radicu lar sympto ms. EXAMIN ATION: MRI of the cervic al spine withou aleksandar contra . TECHNI QUE: Multip lanar and multis equenc e MRI images of the cervic al spine were obtain ed withou t contra st. COMPAR HESHAM: 023 FINDIN GS: Straig htenin g of the cervic al lordos is. Otherw ise the cervic al verteb ral alignm ent, verteb ral body height s, and facet alignm ent are mainta ined. Multil evel degene rative change s are eviden t in the cervic al spine with disc degene ration , endpla te/unc overte bral osteop hytes, ligame ntum flavum thicke efe, and facet hypert rophy noted. Multil evel disc desicc ation. Likely reacti ve/deg enerat vince edema noted along the left C3-C4 facets . No obviou s cervic al cord signal abnorm ality identi fied. Cranio cervic al juncti on is unrema rkable . Patchy old left cerebe llar infarc ts portio ns of the neck soft tissue s reveal no defini te acute findin gs. Mild mucosa l thicke efe in the parana mehreen sinuse s. Old left cerebe llar infarc ts. C2-C3: Uncove rtebra l osteop hytes. Facet hypert rophy, worse on the right. No signif icant canal stenos is. Mild to modera te right and mild left forami nal narrow ing. C3-C4: Disc bulge/ centra l protru nilton. Uncove rtebra l osteop hytes. Facet arthro jodi, worse on the left. Mild to modera te canal stenos is. Modera te to severe left greate r than right forami nal narrow ing. C4-C5: Disc bulge. Superi mposed centra l hernia tion. Uncove rtebra l osteop hytes. Facet hypert rophy. Mild to modera te canal stenos is. Modera te to severe left and modera te right forami nal narrow ing. C5-C6: Disc bulge. Superi mposed centra l protru nilton. Uncove rtebra l osteop hytes. Facet hypert rophy. At least mild canal stenos is. Mild left forami nal narrow ing. C6-C7: Disc bulge. Centra l protru nilton. Uncove rtebra l osteop hytes. Mild ligame ntum flavum thicke efe. Facet hypert rophy. No signif icant canal stenos is. Mild forami nal narrow ing. C7-T1: Mild disc bulge. Small endpla te osteop hytes. Facet hypert rophy. No canal stenos is. Mild to modera te left and mild right forami nal narrow ing. IMPRES NILTON: 1. Multil evel degene rative change s in the cervic al spine contri buting to varyin g degree s of spinal canal and forami nal stenos is, as detail ed above. 2. Promin ent left C3-C4 facet arthro jodi with with likely reacti ve/deg enerat vince edema. 3. No obviou s cervic al cord signal abnorm ality identi fied. 4. Partia lly imaged old left cerebe llar infarc ts. Referr ed By: LUCY HURTADO S Electr onical ly Signed By: Oliver Reynoso MD on 01/18/20 4:28 PM Interp reted By: Oliver Reynoso MD, 01/18/20 4:[address] [facility], [place], [address], 01/18/2025 09:24:35 Result Notes None recorded. Problems Name Problem SNOMED Code Status Onset Date Resolution Date Notes Provider Name and Address Organization Details Recorded Time Chronic low back pain 622409216 Active 2018 est with pain management Not Available [facility] 3 23:39:48 Restless legs 74588202 Active 2018 Not Available [facility] 3 23:39:48 Diverticu litis 674529557 Active 2021 Not Available [facility] 3 23:39:48 Preoperat vince cardiovas cular examinati on Active 2023 Janeen Godfrey MA null, [place] [facility] 4 13:06:50 Electroca rdiogram abnormal 620513898 Active 2023 Janeen Godfrey [place], [place] [facility] 4 13:06:51 Cardiovas cular stress test abnormal 429561575 Active 2023 Debbie Chavez MA null, [place] [facility] 4 11:10:46 Bipolar disorder 42520764 Active Not Available [facility] 3 23:39:48 Perforati on of tympanic membrane 05893217 Active Not Available [facility] 3 23:39:48 Notes:Some problems listed i n Document: #[id number] could not be added to this patient's chart. Please review this document and add these problems to the patient's chart manually as needed. Problem Notes None recorded. Procedures Surgical History Date Name Laterality Status Provider Name and Address Organization Details Recorded Time 024 LEFT HEART CATHETERIZATION (SURG) completed Not Available [facility] 09/11/2024 16:06:37 018 Cerumen Removal completed SWATI Moody Attn: Accounting,[address] [facility], [place], [address], [place] [facility] 11/22/2017 14:38:03 016 total hysterectomy completed Radha Dupont MD Attn: Accounting[address] [facility], [place], [address], [facility] - [facility] 04/26/2023 13:42:59 [facility] 09/27/2015 10:45:08 Other completed [facility] 09/27/2015 10:45:08 Tonsillectomy completed [facility] 09/27/2015 10:45:08 Cholecystectomy completed [facility] 09/27/2015 10:45:08 Hysterectomy completed SWATI Moody Attn: Accounting[address] [place], [address], [facility] - [facility] 09/27/2015 10:57:33 Back Surgery completed SWATI Moody Attn: Accounting[address] [place], [address], [facility] 01/14/2025 14:38:43 Imaging Results None recorded. Procedure Notes None recorded. Medical Equipment None Reported. Allergies Allergen ID Allergen Name Allergen Category Reaction Reaction Severity Criticality Documentation Date Start Date Code Code System Note Provider Name and Address Organization Details Recorded Time 250750 Medicinal product acting as adhesive (product) environme nt,medica tion rash Not available high 01/14/20252020 95133 2008 SNOMED Silk tape gives me rash MOJGAN Porter, [facility] 14:13:27 29201 Substance with sulfonami de structure and antibacte rial mechanism of action (substanc e) medicatio n hives moderate Not available 09/27/2015 83809 8003 SNOMED Christianoyth felicia Vasquez null, [facility] 6 10:45:09 Medications Name Sig Start Date Stop Date Status Note LastModified by Organization Details LastModified Time carisoprodo l 350 mg tablet active Not Available Not Available Not Available glycopyrrol ate 1 mg tablet 11/24 completed Not Available Not Available Not Available cyclobenzap rine 10 mg tablet TAKE 1 TABLET BY MOUTH EVERY 8 HOURS NEEDED FOR MUSCLE SPASM active Not Available Not Available No t [...] 1 TABLET BY MOUTH EVERY 6 HOURS FOR 16 DAYS active Not Available Not Available No [...] Available Not Available oxycodone 5 mg tablet TAKE 1 TABLET BY MOUTH EVERY 4 HOURS NEEDED active Not Available Not Available No t [...] mg tablet TAKE 1 TABLET BY MOUTH IMMEDIATE LY BEFORE BEDTIME FOR INSOMNIA. DO NOT TAKE WITH [...] in Arterial blood by Pulse oximetry Systolic And Diastolic Provider Name and Address Organization Details Last Updated DateTime 5 167.64 cm 29.1 kg/m2 70837.6 3 g 97.5 [degF] 90 /min 98 % 98 % 111/77 mm[Hg] Lucinda Sharma MA [facility] 5 14:15:46 Date Recorded Body height Body mass index (BMI) Body weight Body temperature Heart rate Systolic And Diastolic Provider Name and Address Organization Details Last Updated DateTime 4 167.64 cm 28.9 kg/m2 95953.0 3 g 97.5 [degF] 110 /min 100/66 mm[Hg] Genaro mack MA [facility] 4 14:04:20 Date Recorded Heart rate Provider Name an d Address Organization Details Last Updated DateTime 06/17/2024 96 /min Gulshan Macdonald MD Attn: [address]ing[address] [place], [address], [facility] 06/17/2024 16:07:42 Date Recorded Body height Body mass index (BMI) Body weight Oxygen saturation Oxygen saturation in Arterial blood by Pulse oximetry Systolic And Diastolic Provider Name and Address Organization Details Last Updated DateTime 4 167.64 cm 29.3 kg/m2 82101.3 g 98 % 98 % 98/62 mm[Hg] Janeen Godfrey MA [facility] 4 15:54:10 Date Recorded Body height Body mass index (BMI) Body weight Oxygen saturation Oxygen saturation in Arterial blood by Pulse oximetry Heart rate Systolic And Diastolic Provider Name and Address Organization Details Last Updated DateTime 4 167.64 cm 28.5 kg/m2 65027.1 3 g 98 % 98 % 95 /min 100/72 mm[Hg] Debbie Chavez MA [facility] 4 15:57:00 Date Recorded Body height Body mass index (BMI) Body weight Heart rate Oxygen saturation Oxygen saturation in Arterial blood by Pulse oximetry Systolic And Diastolic Provider Name and Address Organization Details Last Updated DateTime 4 167.64 cm 28.6 kg/m2 87611.5 7 g 92 /min 97 % 97 % 116/68 mm[Hg] Debbie Chavez MA [facility] 4 09:35:07 Social History Question Answer Notes LastModified by OOgave Details LastModified Time Tobacco Smoking Status Former Smoker Juli Brothers MA [facility] 06/02/2020 15:50:37 What Was The Date Of Your Most Recent Tobacco Screening? 01/14/2025 [email or web address] Information not available 01/14/2025 How Much Tobacco Do You Smoke? No [email or web address] Information not available 04/16/2018 Has Tobacco Cessation Counseling Been Provided? No Information not available 06/17/2024 On What Date Was Tobacco Cessation Counseling Provided? 08/17/2024 [email or web address] Information not available 08/17/2024 How Many Years Have You Smoked Tobacco? 4 [email or web address] Information not available 09/27/2015 How Many Years Have You Used E-cigarettes Or Vape? 2 Information not available 11/24/2020 Sex: Unknown Functional Status Question Answer Note LastModified by OOgave Details LastModified Time Do you use any illicit or recreational drugs? No Information not available 06/17/2024 Do you or have you ever used any other forms of tobacco or nicotine? No Information not available 11/24/2020 Do you or have you ever used smokeless tobacco? Never used smokeless tobacco Information not available 04/22/2019 Do you or have you ever used e-cigarettes or vape? Former user of electronic cigarettes 6 mg [email or web address] Information not available 06/04/2024 Mental Status None recorded. Family History Relationship Description Onset Age of this Age Resolved Age Notes LastModified by Organization Details LastModified Time Mother Malignant tumor of breast [facility] Not available 11/08 14:25:42 Mother Malignant neoplasm of urinary bladder [facility] Not available 11/08 14:25:42 Mother Diabetes mellitus [email or web address] Not available 11/08 14:25:42 Mother Hypertensive disorder Not available 11/08 14:25:42 Mother Osteoporosis Not mala ilable 11/08/2015 14:25:42 Father Malignant neoplasm of lung [email or web address] Not available 11/08 14:25:42 Father Malignant tumor of pancreas [facility] Not available 11/08 14:25:42 Father Heart disease [email or web address] Not available 11/08 14:25:42 Father Glaucoma [facility] Not availab le 11/08/2015 14:25:42 Father Hypertensive disorder Not available 11/08 14:25:42 Medical History Condition Response Kidney or Bladder Problems Y GI Problems Y Depression Y Anxiety Disorder Y Allergies Y Gynecological HistoryNo gynecological history recorded. Obstetrics History GPAL:G 0 P 0 0 0 0 Immunizations Vaccine Type Date Status Note Provider Nam e and Address Organization Details Recorded Time SARS-COV-2 (COVID-19) vaccine, UNSPECIFIED 1 completed Not Available [facility] 10/20/2023 06:52:07 COVID-19, mRNA, LNP-S, PF, 30 mcg/0.3 mL dose 1 completed Not Available [facility] 06/20/2023 23:39:48 Tdap 2 completed SWATI Moody Attn: Accounting[address] [facility], [place], [address], [facility] 06/05/2022 13:11:07 Past Encounters Encounter ID Performer Location Encounter Start Date Encounter Closed Date Diagnosis/Indication Diagnosis SNOMED-CT Code Diagnosis ICD10 Code Diagnosis Note [id number] MD Melissa Saunders ([facility] 798) [address] [place] [address] 09/27/2015 10:25:13 09/28/2015 09:44:19 Adult health examination 992172369 Z00.00 [id number] MD Corinne Saunders e FP ([facility] 104) [address] [place] [address] 11/08/2015 14:14:20 11/09/2015 13:28:03 Perforation of tympanic membrane 79587448 H72.93 Will treat with oral and otic abx. Will see back in 1 week for resolution . Should report to the ER for worsening ear pain, headache and/or fever. Continue warm, moist heat behind ear, use caution when bathing to avoid getting water in ears. [id number] MD Corinne Noonan e FP ([facility]) [address] [place] [address] 11/22/2016 11:27:47 11/23/2016 10:28:47 Adult health examination 258982576 Z00.00 Due for labs. Due for mammogram. Pap not needed with hysterecto my hx. Discussed healthy diet and exercise as tolerated. Screening mammography 24 308118 Z12.31 Chronic back pain 901182 002 M54.9 Will send for xray. Should discuss with pain management when she gets re-establi shed. Would benefit from PT but unsure of she could tolerate. [id number] SWATI Moody [facility] ([facility]) [address] [place] [address] 03/27/2017 10:50:11 03/27/2017 15:32:58 Hypokalemia 67290588 E87.6 Encouraged increase potassium in diet. May be cause of inverted T waves on EKG. Palpitations 54538034 R0 0.2 EKG was abnormal in Urgent[facility] and she had an elevated BNP with frequent feelings of chest tightness and palpitatio ns. Needs cardiology referral. If chest tightness or palpitatio ns worsen before cardiology appointmen t should be seen in the ER. [id number] SWATI Moody e FP ([facility] 104) [address] [place] [address] 10/03/2017 13:48:43 10/11/2017 11:22:10 Accidental drug overdose 44010934 T50.901D -Encourage d her to chicken picker Narcan script, may need PA or 340B-Shoul d f/u with pain medication provider for medication assessment . Sprain of right ankle 11 17264995 0499675 S93.491D -Continue RICE therapy-RO M exercises as tolerated SWATI Moody e FP ([facility] 104) [address] [place] [address] 10/11/2017 11:53:51 10/15/2017 14:26:27 Incomplete emptying of urinary bladder 087870364 R39.14 -UA shows scant blood and protein, will send for culture.-I f culture negative will send to urology, may need cystoscopy . Sprain of right ankle 11 46539896 2286953 S93.491D -Continue RICE therapy-RO M exercises as tolerated [id number] SWATI Moody FP ([facility] 104) [address] [place] [address] 11/22/2017 13:57:09 11/25/2017 11:22:45 Otalgia 18902540 H92.03 -Encourage d to use steroid nasal spray daily-Warm compresses behind ears. Impacted cerumen 0618840 6 H61.21 -Flushed in office. [id number] SWATI NUÑEZ FP ([facility] 104) [address] [facility] [place] [address] 04/16/2018 14:11:15 04/23/2018 12:26:13 Constipation 24862791 K59.00 suspect chronic constipati on due to opioid usept does not want to try miralaxsta rt lactulose BID until stools softincrea se fiber and water in dietobtain XR abdomen if not improving in 2-3 daysf/u prn [id number] SWATI Moody FP ([facility] [address]) [address] [place] [address] 04/29/2018 12:17:50 05/15/2018 12:37:52 Abdominal pain 59434631 R10.9 -Continue close f/u with GI-Avoid constipati on with good bowel routine, high fiber diet and good water intake-Ret urn to the ER for worsening pain. [id number] SWATI Moody FP ([facility] 104) [address] [place] [address] 01/19/2019 11:41:04 01/20/2019 09:59:16 Acute otitis media 0648023 H65.01 -treat with augmentin- increase water intake Perforatio n of tympanic membrane 83533508 H72.93 -refer to ENT [id number] Jackson Lawler MD [facility] [address] [place] [address] 01/26/2019 10:55:36 01/28/2019 11:34:46 Otitis externa 8640106 H60.93 keep ear dry Sensorineu ral hearing loss of bilateral ears 941378702 H90.3 Dysphagia 81386708 R13.1 0 [id number] SWATI Moody FP ([facility] [address]) [address] [place] [address] 02/04/2019 08:56:03 02/04/2019 14:46:36 Urinary incontinence 214538694 R32 Retention of urine 12588 4002 R33.9 -UA shows trace leukocytes , will send for culture Chronic low back pain 27 8747535 M54.5 -already establishe d with pain management , will not provide any additional medication s for her back pain.-refe r to PT [id number] SWATI Moody FP ([facility]) [address] [place] [address] 04/22/2019 10:11:12 04/23/2019 16:05:33 Dizziness 018331790 R42 -BS normal low in the office-adm its to only eating once daily, encouraged to increase calorie intake throughout the day-on multiple agents that cause dizziness- BP normal Bipolar disorder 2243191 4 F31.9 -PHQ9 positive, est at [place] for treatment [id number] Jackson Lawler MD [facility] [address] [place] [address] 05/27/2019 10:35:22 06/08/2019 12:23:50 Dysphagia 71337919 R13.10 ba swallow normal follow back with neurology [id number] SWATI Moody FP ([facility] 104) [address] [place] [address] 11/26/2019 09:53:23 11/27/2019 09:42:06 Chronic low back pain 795598174 M54.5 -discussed with Anh that she has pain management for her back pain and that she needs to continue treatment with them-will not increase the tizanidine dose due to her clonazepam use for her mental health Surgical i ncision wound of skin 6535165810 00 R23.8 -appears to be healing appropriat nany Bipolar disorder 7411032 4 F31.9 -PHQ9 positive, est at [place] for treatment [id number] [facility] [address] [place] [address] 02/09/2020 17:15:21 02/10/2020 12:12:31 Headache 48800286 R51 -tylenol as needed for pain-discu ssed other ways to combat headaches, including rest, dark room, cool cloth on neck-shoul d report back to ER for worst headache ever feeling or any other neurologic al deficits. Dizziness 767710860 R42 -BS normal low-encour aged nutrition and appropriat e water intake-on multiple agents that cause dizziness- should change positions slowly [id number] Amna Nicholson MD [facility] [address] [place] [address] 02/11/2020 09:24:29 02/12/2020 08:48:07 Suspected COVID-19 726811678 Z03.684 [id number] SWATI Moody [facility] ([facility]) [address] [place] [address] 04/11/2020 12:37:40 04/12/2020 11:23:28 Xerostomia 89478957 R68.2 -suspect recent addition of linzess is causing her symptoms.- frequently on abx from her UTI, may be causing the metallic taste in her mouth-can f/u with GI to see if there is any other medication s she can take that will not cause this side effect Atypical facial pain 713 77395 G50.1 -can try to take the muscle relaxer at night to see if this helps her pain-has refills of medication available- f/u if no change or worsening [id number] SWATI Moody [place] pat[facility] ([facility]) [address] [place] [address] 06/02/2020 15:47:48 06/14/2020 22:20:43 Bipolar disorder 05574928 F31.9 -f/u'd with psych this morning-fe eling better with current medication adjustment s Chronic low back pain 27 7903785 M54.5 -est with pain management -will not increase the tizanidine dose due to her clonazepam use for her mental health [id number] SWATI Moodylatosha patel ([facility] 104) [address] [place] [address] 07/04/2020 16:46:31 07/05/2020 10:04:20 Lymphedema of lower extremity 623153172 I89.0 -wearing compressio n stockings, getting relief while they are on-can try short course of furosemide -can try to get into lymphedema clinic at [facility] . Serum crea tinine above reference range 110574419 R79.89 -send to nephrology for raising creatinine and lowering GFR-can not r/o reason for swelling [id number] Jackson Lawler MD [facility] [address] [place] [address] 08/04/2020 13:37:08 08/05/2020 11:19:11 Acute sinusitis 04045053 J01.90 Dermatitis of external ear 126678714 H60.93 use otc steroid cream [id number] SWATI Moody FP ([facility]) [address] [place] [address] 09/21/2020 14:44:49 09/28/2020 10:53:24 Smoker 34371101 F17.200 -vaping, not interested in quitting at this time Serum crea tinine above reference range 211447754 R79.89 -open referral to nephrology for raising creatinine and lowering GFR-can not r/o reason for swelling-e ncouraged to call urology for symptoms with current stones-com plete furosemide as ordered from the ER-check UA to r/o UTI with flank pain, send for renal US-back to ER for any worsening symptoms, difficulty with urination Bipolar disorder 5825018 4 F31.9 -est with psych-feel ing worse with current chronic health conditions and pain-will talk to her psychiatri st today Obesity 245023032 Z68.31 -check A1C Chronic low back pain 27 2883838 M54.5 -est with pain management -can cont tizanidine at current dose [id number] Jackson Lawler MD [facility] [address] [place] [address] 09/22/2020 14:55:22 09/22/2020 16:09:08 Otitis externa 0639165 H60.93 keep ear dry [id number] Pebbles Salmeron NP- Corinne SIBLEY ([facility] 104) [address] [place] [address] 11/24/2020 16:45:16 12/07/2020 11:15:45 Liver enzymes level above reference range 028837868 R74.8 -being followed by Dr. Ann office -encourage d low fat diet Edema of l ower extremity 114507498 R60.0 -no resolution with lasix -ok to resume PT to see if this helps with weight, mobility and swelling [id number] JENY Marshall- Corinne SIBLEY ([facility] 104) [address] [place] [address] 03/03/2021 16:01:17 03/10/2021 08:52:54 Lymphedema 159523053 I89.0 -lasix and K increase 40/20 respective ly-Continu e PT as previously prescribed (3x/week)- pending labs with renal DrShannen per pt on Mon. results to be sent to PCP office.-fu [...] and encouraged pt states understand ing. Right Sarah mcdonough tendinitis 9750791954 07307 M76.61 celestone and toradol injection im per ma per voRKEILA encouraged fu in 1 mo prnPT to be considered if lacking resolution Night sweats 24312205 R6 1 other labs up-to-date .pt reports total hysterecto my 13 years agotrazado ne dc while in hospital. may cause night sweats to resolve. will continue to monitor. Screening mammography 24 713519 Z12.31 pt reports last mammogram approx. 2-3 years agopending . will tailor treatment accordingl y upon receipt of labs [id number] SWATI Moody [place] FP ([facility]) [address] [place] [address] 04/19/2021 15:12:45 04/20/2021 11:43:55 Bilateral plantar fasciitis 0123176257 6139010 M72.2 -refer to podiatry-e ncouraged stretching and rolling foot on iced water bottle for pain relief Restless legs 65088113 G 25.81 -stable, needs refill Chronic low back pain 27 0155396 M54.5 -est with pain management -can cont cyclobenza nadira at current dose [id number] SWATI Moody [place] [facility] ([facility]) [address] [place] [address] 08/21/2021 10:27:39 08/25/2021 12:35:30 Abdominal bloating 097930324 R14.0 -est with GI- will see them on Saturday-no signs of ascites on last CT scan Flank pain 464381207 R10 .9 -encourage d f/u with urology-ca n give very short term tramadol for pain relief. Understand s her pain is going to be harder to treat with her past hx of heavy opioid pain meds for low back pain-may need to consider pain management referral [id number] SWATI [facility] ([address]) [address] [place] [address] 01/24/2022 09:46:59 01/25/2022 09:13:26 Upper respiratory infection 68794969 J06.9 -rapid covid negative-w ill treat for sinusitis with length of symptoms-p ush fluids-can try sinus rinses Daytime somnolence 26905 94173 00 R40.0 -on multiple medication s for sleep-need s sleep med referral Chronic sinusitis 158031 00 J32.9 -cont nasal steroid Obesity 107138531 E66.9 -check A1C [id number] Pebbles Salmeron, NOAH-[facility] ([address]) [address] [place] [address] 02/15/2022 15:12:05 02/20/2022 14:42:33 Acute otitis media 9923136 H65.01 -treat with cefuroxime since she was recently on augmentin- increase water intake-if not better will need to see ENT Cough 90927666 R05.1 -cough syrup as needed-can also drink hot tea with lemon and honey-warm salt water gargles and lozenges as needed [id number] Pebbles Salmeron NP-C [facility] ([address]) [address] [place] [address] 05/23/2022 16:30:29 06/06/2022 08:34:58 Immunization status unknown 462645524 Z76.89 Tuberculos is screening 015898456 Z11.1 Active or passive immunization 422919301 Z23 History an d physical examination, pre-employment 426099429 Z02.1 -no red falgs to exclude from employment -update immunizati ons and check titers. [id number] JENY Marshall- [facility] ([address]) [address] [place] [address] 09/14/2022 15:10:20 09/18/2022 11:02:08 Diarrhea 98036598 R19.7 hydration and rest encouraged fu as neededrepo rt to ED if s/s worsenhand hygeine encouraged use immodium in marylou of Pepto-Bism ol for better results Lower abdominal pain 545 67969 R10.30 -WBC wnl labs as of 09/13/2022 [...] dark colored diarrhea s/s-last colonoscop y per [place] 06/2020. Pt serves as poor historian. Chronic back pain 999625 002 G89.29 -medicatio n refill following trial of baclofen dt cyclobenza nadira ineffectiv e in managing chronic spinal pain-RICE encouraged -fu w/ PCP/pain management as needed-rep ort to ED if s/s worsen Diverticul osis of colon 989763774 K57.30 informatio n and discussion provided regarding dx; as pt reports she was unaware of dx [id number] [facility] ([facility] [address]) [address] [place] [address] 11/05/2022 17:16:01 11/09/2022 13:43:19 Acute pharyngitis 768011624 J02.9 -rapid neg, send cx-support vince care with warm liquids and tylenol for pain Overweight 069103164 E66 .3 Nicotine-f illed electronic cigarette user 845744585 Z72.89 -vaping, not interested in quitting at this time [id number] SWATI Moody ([address]) [address] [facility] [place] [address] 05/02/2023 11:38:13 05/18/2023 00:05:12 Acute urinary tract infection 760334923 N39.0 -will treat with macrobid-w ill need urology referral if she gets another UTI-push fluids-f/u if symptoms do not improve in 2-3 days Screening mammography 24 384081 Z12.31 Osteoarthritis 199794636 M19.90 -stable on NSAIDs-use caution with CKD Overweight 777955311 E66 .3 [id number] [facility] ([address]) [address] [place] [address] 07/22/2023 15:38:17 07/24/2023 11:57:25 Low back strain 673910257 S39.012A -getting better, MRI not warranted at this time-to ER for any saddle anesthesia or loss of bowel or bladder function-l ifting restrictio n for 1 week-see back in 1 week for reassessme nt Overweight 536281867 E66 .3 [id number] Pebbles Salmeron NP-Pat [facility] ([address]) [address] [place] [address] 07/31/2023 15:01:20 08/02/2023 12:27:35 Chronic sinusitis 89407367 J32.9 -stable, cont nasal steroid Overweight 799366706 E66 .3 Chronic low back pain 27 3784957 M54.50 -est with pain management , on chronic opioids and muscle relaxers-w ork note provided to increase lifting weight-f/u as needed, cont close f/u with pain management [id number] Radha Dupont MD [facility] ([facility]) [address] [place] [address] 06/04/2024 13:53:14 06/08/2024 13:56:28 Electrocardiogram abnormal 783320557 R94.31 -refer to cardiology for clearance Overweight 632808546 E66 .3 [id number] Gulshan Macdonald MD [facility] [place] [facility] [address] [place] [address] 06/17/2024 15:33:34 06/18/2024 09:57:05 Electrocardiogram abnormal 778061277 R94.31 Preoperati ve cardiovascular examination 686968589 Z01.810 Chest pain 46648125 R07. 9 Hyperlipid emia screening 810944580 Z13.265 [id number] Gulshan Macdonald MD [facility] [place] [facility] [address] [place] [address] 08/17/2024 15:46:02 08/21/2024 08:19:07 Electrocardiogram abnormal 519070795 R94.31 Preoperati ve cardiovascular examination 769304972 Z01.810 Chest pain 53914106 R07. 9 Cardiovasc ular stress test abnormal 048731972 R94.39 Hyperlipid emia screening 071756866 Z13.925 [id number] Gulshan Macdonald MD [facility] [place] [facility] [address] [place] [address] 09/15/2024 09:27:28 09/17/2024 10:54:41 Electrocardiogram abnormal 235038475 R94.31 Preoperati ve cardiovascular examination 211373239 Z01.810 Chest pain 25470136 R07. 9 Cardiovasc ular stress test abnormal 743705681 R94.39 Hyperlipid emia screening 502277310 Z13.619 [id number] Radha Dupont MD [facility] ([address]) [address] [place] [address] 01/14/2025 14:08:04 02/01/2025 09:17:32 Adult health examination 578714734 Z00.00 Health Risk Assessment collected and reviewed-P AP not needed, history to total hysterecto my-colonos copy 11/2022 with 10 year repeat Screening mammography 24 437815 Z12.31 Overweight 997892416 E66 .3 Health Concerns Section Related Observation LastModified by Organization Detai ls LastModified Time None Recorded Concern Status LastModified by Organization Details LastModified Time None Recorded Advance Directives Directive None Recorded Payers Encounter Date Sequence Insurance Name Policy Number Policy Tinoco Covered Member ID Tinoco Member ID Guarantor Name 06/04/2024 2 [place] OR MEDICARE REPLACEMENT PRIMARY) Anh Martino [id number] Anh Martino 06/04/[address] [facility] (MEDICARE REPLACEMENT/AD VANTAGE - HMO) [id number] Anh Martino [id number] Anh Martino 06/17/2024 2 [place] REPLACEMENT [place]) Anh Martino [id number] Anh Martino 06/17/[address] [facility] (MEDICARE REPLACEMENT/AD VANTAGE - HMO) [id number] Anh Martino [id number] Anh Martino 08/17/2024 2 [place]PLACEMENT [place]) Anh Martino [id number] Anh Martino 08/17/[address] [facility] (MEDICARE REPLACEMENT/AD VANTAGE - HMO) [id number] Anh Martino [id number] Anh Martino 09/15/2024 2 [place] REPLACEMENT [place]IMARY) Anh Martino [id number] Anh Martino 09/15/[address] [facility] (MEDICARE REPLACEMENT/AD VANTAGE - HMO) [id number] Anh Martino [id number] Anh Martino 01/14/[address] [facility] (MEDICARE REPLACEMENT/AD VANTAGE - HMO) [id number] Anh Martino [id number] Anh Martino Notes Date Note Type Note Provider Name and Address Organization Details Recorded Time 06/04/2024 text/html Anh is here today needing cardiac clearance for her back surgery. She had an abnormal EKG in pre-testing. She denies any chest pain, palpitations or shortness of breath. SWATI Moody Attn: [address] [facility], [place], [address], [facility] - [facility] 06/04/2024 22:52:11 06/17/2024 text/html 53-year-old fema willie [...] she is planning to have back surgery. LABS:06/15/23:glucos e 80, BUN 27, creatinine 1.05, sodium 143, K+ 4.1, eGFR 64 Gulshan Macdonald MD Attn: [address] [facility], [place], [address], [place] [facility] 06/17/2024 16:18:02 08/17/2024 text/html 53-year-old femkelley tapia [...] She also had a Lexiscan Myoview at [facility] on August 03, 2024 which was suggestive of mild partial reversible perfusion defect involving proximal to mid anterior wall. LABS:06/15/23:glucos e 80, BUN 27, creatinine 1.05, sodium 143, K+ 4.1, eGFR 64 CARDIAC TESTING:LEXISCAN STRESS 08/03/24:No chest pain. No ischemic EKG changes. Nuclear images are pending which will be reported separately.Myoview scan: Mild partial reversible ischemia involving the proximal to mid anterior wall. Normal left wall motion. Calculated ejection fraction is 74%. Glushan Macdonald MD Attn: [address] [place], [address], [place] [facility] 08/17/2024 16:21:24 09/15/2024 text/html 53-year-old reina tapia who has no history of coronary [...] She also had a Lexiscan Myoview at [facility] on August 03, 2024 which was suggestive [...] 74%. Gulshan Macdonald MD Attn: [address] [place], [address], [facility] - [facility] 09/15/2024 10:27:04 01/14/2025 text/html MAW 2Reported bypatient.Diet and Nutrition:healthy diet Fracture Risk:no history of fractures; no sudden unexplained fractures Concentration and Memory:no decreased concentrating ability; no memory lapses or loss; does not forget words Speech/Motor difficulties:no speech difficulties; no difficulty expressing formulated concepts; no difficulty with fine manipulative tasks; no difficulty writing/copying; no slowed reaction time; does not knock things over when trying to pick them up Hearing:no loss of hearing Vision:no vision problems Activities of Daily Living:able to bathe with limited or no assistance; able to contol urination and bowels; able to dress with limited or no assistance; able to feed self with limited or no assistance; able to get out of chair or bed with limited or no assistance; able to groom with limited or no assistance; able to toilet with limited or no assistance Instrumental Activities of Daily Living:able to do house work with limited or no assistance; able to grocery shop with limited or no assistance; able to manage medications with limited or no assistance; able to manage money with limited or no assistance; able to prepare meals with limited or no assistance; able to use the phone with limited or no assistance Falls Risk Assessment:no frequent falls while walking; no fall in the past year; no fall since last visit; no dizziness/vertigo Home Safety:no unsafe sandra hazzards; no unsafe stairs; working smoke/CO detectors; practicing 'safer sex'; no fire arms; has hand bars in the bathroom/shower; good lighting in the home SWATI Moody Attn: [address] [place], [address], [facility] - [facility] 01/28/2025 23:17:54 OBGyn Episode No OBEpisode recorded.
--- OUTSIDE RECORDS SUMMARY | 2025-02-10 08:43 | XMS_ITS | Patient Health Record ---
Author Organization Formerly [facility] Address [address] [place] [address] Care Team Providers Care Central Supply Supervisor Name Role Phone Shelton Kraus Primary [...] Work history/current job doesn't work, worked a [employer] for a few months , worked at [employer] for about 13 years, she is on [...] Work history/current job doesn't work, worked a [employer] for a few months , worked at [employer] for about 13 years, she is on [...] Work history/current job doesn't work, worked a [employer] for a few months , worked at [employer] for about 13 years, she is on [...] Work history/current job doesn't work, worked a [employer] for a few months , worked at [employer] for about 13 years, she is on [...] Work history/current job doesn't work, worked a [employer] for a few months , worked at [employer] for about 13 years, she is on [...] Work history/current job doesn't work, worked a [employer] for a few months , worked at [employer] for about 13 years, she is on [...] Work history/current job doesn't work, worked a [employer] for a few months , worked at [employer] for about 13 years, she is on [...] Work history/current job doesn't work, worked a [employer] for a few months , worked at [employer] for about 13 years, she is on [...] Work history/current job doesn't work, worked a [employer] for a few months , worked at [employer] for about 13 years, she is on [...] Work history/current job doesn't work, worked a [employer] for a few months , worked at [employer] for about 13 years, she is on [...] Work history/current job doesn't work, worked a [employer] for a few months , worked at [employer] for about 13 years, she is on [...] Work history/current job doesn't work, worked a [employer] for a few months , worked at [employer] for about 13 years, she is on [...] Work history/current job doesn't work, worked a [employer] for a few months , worked at [employer] for about 13 years, she is on [...] Work history/current job doesn't work, worked a [employer] for a few months , worked at [employer] for about 13 years, she is on [...] Work history/current job doesn't work, worked a [employer] for a few months , worked at [employer] for about 13 years, she is on [...] Work history/current job doesn't work, worked a [employer] for a few months , worked at [employer] for about 13 years, she is on disability Marital status was 8 years, 3 children, 19, 11, 10 /legal/probation denies Problems Problem Type SNOMED Code ICD Code Onset Dates Problem Status W/U Status Risk Notes Problem 20810651 Bipolar II disorder (F31.81) Active confirmed Problem Insomnia (G47.00) Active confirmed Problem 05157478 Anorexia nervosa (F50.00) Active confirmed Problem 75506745 Severe episode of recurrent major depressive disorder, 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) Active confirmed Problem 147552891 Panic disorder [episodic paroxysmal anxiety] (F41.0) Active confirmed Encounters Encounter Location Date Provider Diagnosis [address] [address] 05/13/2024 Shelton Kraus Bipolar II disorder F31.81 ; Insomnia G47.00 and Panic disorder [episodic paroxysmal anxiety] F41.[address] [address] 08/10/2024 Shelton Kraus Bipolar II disorder F31.81 ; Panic disorder [episodic paroxysmal anxiety] F41.0 and Insomnia G47.[address] [address] 11/11/2024 Shelton Kraus Bipolar II disorder F31.81 ; Panic disorder [episodic paroxysmal anxiety] F41.0 and Insomnia G47.[address] [address] 03/24/2024 Shelton Kraus [address] [address] 04/28/2024 Shelton Kraus Bipolar II disorder F31.[address] [address] 06/16/2024 Shelton Kraus Insomnia G47.00 and Panic disorder [episodic paroxysmal anxiety] F41.0 Assessments Encounter Date Diagnosis (ICD Code) Assessment Notes Treatment Notes Treatment Clinical Notes Section Notes 04/28/2024 Bipolar II disorder (ICD-10 - F31.81) 05/13/2024 Bipolar II disorder (ICD-10 - F31.81) 06/16/2024 Insomnia (ICD-10 - G47.00) 06/16/2024 Panic disorder [episodic paroxysmal anxiety] (ICD-10 - F41.0) 08/10/2024 Bipolar II disorder (ICD-10 - F31.81) 11/11/2024 Bipolar II disorder (ICD-10 - F31.81) Client doing well, no tx plan changes needed at this time. 08/10/2024 Panic disorder [episodic paroxysmal anxiety] (ICD-10 - F41.0) 11/11/2024 Panic disorder [episodic paroxysmal anxiety] (ICD-10 - F41.0) Client doing well, no tx plan changes needed at this time. 05/13/2024 Insomnia (ICD-10 - G47.00) 05/13/2024 Panic disorder [episodic paroxysmal anxiety] (ICD-10 - F41.0) 11/11/2024 Insomnia (ICD-10 - G47.00) Client doing well, no tx plan changes needed at this time. 08/10/2024 Insomnia (ICD-10 - G47.00) 05/13/2024 Other Discussed sleep hygiene and caffeine [...] number to the 24-hour crisis line at [facility]. Questions addressed. Client verbalized understanding of [...] number to the 24-hour crisis line at [facility]. Questions addressed. Client verbalized understanding of [...] number to the 24-hour crisis line at [facility]. Questions addressed. Client verbalized understanding of all information and is agreeable to treatment plan. Client doing well, no tx plan changes needed at this time. Plan Of Treatment No Information Insurance Providers Payer Name Payer Address Payer Phone Subscriber Number Group Number Insured Name Patient Relationship to Insured Coverage Start Date Coverage End Date [facility] Medicare [address] [address] [place] [phone] [id number] Anh Martino Self - patient is the insured 3 3 MEDICAID [address] [place] [address] [id number] Anh Martino Self - patient is the insured 1 1 [employer] MEDICARE ADV [address] [place] [phone] [id number] Anh Martino Self - patient is the insured 1 2 [employer] MEDICARE ADV CLIENT INTEGRATION MANAGER [address] [address] [place] [address] [id number] Anh Martino Self - patient is the insured 1 3 [employer] Medicaid [address] [address] [place] [address] [id number] Anh Martino Self - patient is the insured 1 1 [employer] [address] [place] [address] [id number] Anh Martino Self - patient is the insured 1 12/01/202 1 Medical (General) History Medical History History [...]
--- OUTSIDE RECORDS SUMMARY | 2025-02-10 08:43 | XMS_ITS | Encounter Summary ---
Author Organization [facility] Address [address] [place] [address] Care Team Providers Care Seasonal Delivery Driver Name Role Phone Unavailable Primary Care Provider Unavailabl e Prior Encounters Date Type Department Care Team Description 10/05/2019 Converted CPS Chart Documents [facility] [address] [place] [address] <No scans attached> 10/05/2019 Converted 13x Documents [facility] [address] [place] [address] <No scans attached> Plan of Treatment Not on file Procedures Procedure Name Priority Date/Time Associated Diagnosis Comments 31 LIMITED ORAL EVALUATION - PROBLEM FOCUSED Routine 06/22/2020 2:00 AM CDT PANORAMIC RADIOGRAPHIC IMAGE Routine 06/22/2020 2:00 AM CDT Visit Diagnoses Not on file
== END 2025-02-10 08:40 | disposition home or self-care (01) ==
PROVIDERS: PCP Nurse Practitioner Family; Visit Provider Neurological Surgery
DX: M48.062 Spinal stenosis, lumbar region with neurogenic claudication (principal); Z98.1 Arthrodesis status; Z96.698 Presence of other orthopedic joint implants
CPT/HCPCS: 72100